=== PATIENT | male | born 1945 | race Caucasian/White ===

== ENCOUNTER 2017-09-30 10:24 | Day surgery (SDC) | payer OTHER ==
[2017-09-30] MEDS ORDERED: NA CHLORIDE 0.9% 1,000 ML ONE (11:29)
[2017-09-30] MEDS ORDERED: PROPOFOL 200 MG/20 ML VIAL IV ONE (13:37)
[2017-09-30] MEDS ORDERED: LIDOCAINE 1% MPF 5 ML VIAL ONE (14:06)
[2017-09-30 14:09] VITALS: TEMP 97.4
[2017-09-30 15:17] VITALS: BP 132/66; O2SAT 95
--- NOTE | 2017-09-30 15:52 | ENDO RPT ---
[address], [address] EGD PROCEDURE REPORT EXAM DATE: 09/30/2017 PATIENT NAME: Yunior Lewis MR#: [id number] BIRTHDATE: 1945 ATTENDING: Merlin Chapa Dr STATUS: outpatient BAR PORTER: Penny Reid and Sonja Villavicencio RN INDICATIONS: The patient is a 72 yr old Male here for an EGD due to mid epigastric abdominal pain, GERD, and chronic unexplained diarrhea PROCEDURE PERFORMED: EGD with biopsy MEDICATIONS: Per Anesthesia. TOPICAL ANESTHETIC: none CONSENT: The patient understands the risks and benefits of the procedure and understands that these risks include, but are not limited to: sedation, allergic reaction, infection, perforation and/or bleeding. Alternative means of evaluation and treatment include, among others: physical exam, x-rays, and/or surgical intervention. The patient elects to proceed with this endoscopic procedure. DESCRIPTION OF PROCEDURE: During intra-op preparation period all mechanical medical equipment was checked for proper function. Hand hygiene and appropriate measures for infection prevention was taken. Procedure, possible complications, and alternatives including but not limited to the possibility of bleeding, perforation, tear, infection, sepsis, need for surgery, need for blood transfusion, and anesthesia related complications were explained to the patient. After the risks, benefits and alternatives of the procedure were thoroughly explained, Informed consent was verified, confirmed and timeout was successfully executed by the treatment team. The patient was placed in the left lateral position. The patient was anesthetized with topical anesthesia. Through the anesthetized oropharyngeal area, the scope was passed without any difficulty. The Pentax [id number] ([id number]) endoscope was introduced through the mouth and advanced to the mid jejunum. Retroflexed views revealed no abnormalities. The gastroscope was then slowly withdrawn and removed. LA Class A esophagitis was found in the lower esophagus. Possible Carroll's esophagus (1cm) was found in the lower esophagus. With jumbo forceps, a biopsy was obtained and sent to pathology. Mild gastritis was found in the body of the stomach. With jumbo forceps, a biopsy was obtained and sent to pathology. Anastomosis was noted in the body of the stomach. Small bowel biopsies obtained with history of chronic unexplained diarrhea. ADVERSE EVENTS: There were no complications. IMPRESSIONS: 1. LA Class A esophagitis in the lower esophagus 2. Possible Carroll's esophagus (1 cm) in the lower esophagus, s/p biopsy 3. Mild gastritis in the body of the stomach, s/p biopsies 4. Anastomosis in the body of the stomach 5. Small bowel biopsies obtained with history of chronic unexplained diarrhea RECOMMENDATIONS: 1. await biopsy results 2. acid suppression therapy REPEAT EXAM: Merlin Chapa Dr eSigned: Merlin Chapa Dr 09/30/2017 1:54 PM cc: Jimmy Almendarez M.D. CPT CODES: ICD9 CODES: PATIENT NAME: Yunior Lewis MR#: [id number]
== END 2017-09-30 14:34 | disposition home or self-care (01) ==
LOC: OR 10:24
PROVIDERS: ATTEND Internal Medicine Gastroenterology
PROC: 0DB88ZX Excision of Small Intestine, Via Natural or Artificial Opening Endoscopic, Diagnostic (ICD-10-PCS; 2017-09-30)
PROC: 0DB68ZX Excision of Stomach, Via Natural or Artificial Opening Endoscopic, Diagnostic (ICD-10-PCS; 2017-09-30)
PROC: 0DB38ZX Excision of Lower Esophagus, Via Natural or Artificial Opening Endoscopic, Diagnostic (ICD-10-PCS; principal; 2017-09-30 14:15)
DX: K21.0 Gastro-esophageal reflux disease with esophagitis (principal); K29.70 Gastritis, unspecified, without bleeding; R19.7 Diarrhea, unspecified; Z88.6 Allergy status to analgesic agent; Z88.0 Allergy status to penicillin; Z88.2 Allergy status to sulfonamides; Z88.8 Allergy status to other drugs, medicaments and biological substances; I48.91 Unspecified atrial fibrillation; Z79.01 Long term (current) use of anticoagulants; I11.0 Hypertensive heart disease with heart failure; I50.9 Heart failure, unspecified; J44.9 Chronic obstructive pulmonary disease, unspecified
CPT/HCPCS: 43239; 82962; 88305; 88312; 88313; J7030

== ENCOUNTER 2019-02-04 09:25 | Inpatient (IN) | payer OTHER ==
--- OUTSIDE RECORDS SUMMARY | 2019-02-04 09:27 | XMS REPORT | Summary of Care ---
:1945 Author Organization [facility] Address [address] [place] [id number] Care Team Providers Name Role Phone GomezJimmy valdes Prakash Primary Care Provider Reason for Visit Reason Comments Refill Request Encounter Details Date Type Department Care Team Description 10/09/2018 Refill [facility] Ramiro Luna MD Refill Request Neurology-[address] [place] [id number] [address] [address] [place] [address] [phone] Allergies Active Allergy Reactions Severity Noted Date Comments Nsaids (Non-Steroidal Other - See comments 02/23/2016 Anti-Inflammatory Drug) Penicillins Other - See comments 02/23/2016 Hallucination Warfarin Hallucinations 02/23/2016 documented as of this encounter (statuses as of 10/09/2018) Medications Medication Sig Dispensed Refills Start End Status Date Date mycophenolate mofetil 500 Take 1,000 0 Active mg tablet mg by mouth. tacrolimus 1 mg capsule Take 3 mg by 0 Active mouth. omega-3 fatty Take 1 0 Active acids-vitamin E (FISH OIL) capsule by 1,000 mg capsule mouth. pantoprazole 40 mg EC Take 40 mg 0 Active tablet by mouth. sucralfate 1 gram tablet Take 1 g by 0 Active mouth. furosemide 40 mg tablet Take 40 mg 0 Active by mouth. spironolactone 50 mg Take 50 mg 0 Active tablet by mouth. apixaban 5 mg tablet Take 5 mg by 0 Active mouth. digoxin 125 mcg tablet Take 125 mcg 0 Active by mouth. labetalol 200 mg tablet Take 200 mg 0 Active by mouth. rosuvastatin 10 mg tablet Take 10 mg 0 Active by mouth. allopurinol 100 mg tablet Take 100 mg 0 Active by mouth. HYDROcodone-acetaminophen TAKE 1 0 02/09/20 Active 7.5-325 mg per tablet TABLET BY 16 MOUTH 3 TIMES A DAY albuterol 90 mcg/actuation Inhale 2 0 Active inhaler Puffs. predniSONE 5 mg tablet Take 5 mg by 0 Active mouth daily. potassium chloride Take 10 mEq 0 Active (KLOR-CON 10) 10 mEq CR by mouth tablet daily. fluticasone-vilanterol Inhale. 0 Active 100-25 mcg/dose DsDv Diclofenac Sodium 1 % gel Apply to 0 Active area(s). escitalopram oxalate 10 mg 0 10/03/19 Active tabletIndications: Type 2 18 diabetes mellitus with complication, with long-term current use of insulin latanoprost 0.005 % 0 10/02/19 Active ophthalmic 18 dropsIndications: Type 2 diabetes mellitus with complication, with long-term current use of insulin methscopolamine 5 mg 0 09/27/19 Active tabletIndications: Type 2 18 diabetes mellitus with complication, with long-term current use of insulin cyclosporine (RESTASIS Place in 0 Active OPHTHALMIC)Indications: each eye. Type 2 diabetes mellitus with complication, with long-term current use of insulin carboxymethylcellulose Place in 0 Active sodium (REFRESH each eye. OPHTHALMIC)Indications: Type 2 diabetes mellitus with complication, with long-term current use of insulin Insulin Asp Prt-Insulin Inject 30 60 mL 3 10/09/19 Active Aspart (NOVOLOG MIX 70-30) units before 18 100 unit/mL (70-30) breakfast injectionIndications: Type and 21 units 2 diabetes mellitus with before complication, with dinner long-term current use of insulin Insulin [place], Use as 200 Each 3 10/09/19 Active Disposable, (BD ULTRA-FINE directed. 18 MICRO PEN NEEDLE) 32 gauge Twice daily. x 02/28" NdleIndications: E 11.8 Type 2 diabetes mellitus with complication, with long-term current use of insulin Lancets (ONETOUCH Use as 300 Each 02/13/20 Active ULTRASOFT LANCETS) directed. E 18 MiscIndications: Type 2 11.8. Three diabetes mellitus with times daily complication, with long-term current use of insulin blood sugar diagnostic Use as 300 Strip 3 02/13/20 Active (ONETOUCH VERIO) directed. E 18 stripIndications: Type 2 11.8. Check diabetes mellitus with three times complication, with daily long-term current use of insulin pen needle,diabetic dual To use BID 200 Each 2 02/13/20 Active safty (BD AUTOSHIELD DUO with insulin 18 PEN NEEDLE) 30 gauge x DX: E11.8 3" Ndle primidone 50 mg 2 by mouth 540 tablet 2 07/15/19 Active tabletIndications: TID for 19 Essential tremor tremor. PRIMIDONE 50 mg tablet TAKE 1 90 tablet 0 10/10/19 Active TABLET BY 19 MOUTH EVERY 8 (EIGHT) HOURS. PRIMIDONE 50 mg tablet TAKE 1 90 tablet 0 07/28/ Discontinued TABLET BY 19 019 MOUTH EVERY 8 (EIGHT) HOURS. documented as of this encounter (statuses as of 10/09/2018) Active Problems Problem Noted Date Right knee pain 02/23/2016 documented as of this encounter (statuses as of 10/09/2018) Social History Tobacco Use Types Packs/Day Years Used Date Former Smoker Smokeless Tobacco: Never Used Alcohol Use Drinks/Week oz/Week Comments No 0 Standard drinks or equivalent 0.0 Sex Assigned at Date Recorded Not on file Job Start Date Occupation Industry Not on file Not on file Not on file Travel History Travel Start Travel End No recent travel history available. documented as of this encounter Last Filed Vital Signs Not on filedocumented in this encounter Plan of Treatment Date Type Specialty Care Team Description 01/30/2019 Office Visit Endocrinology Diabetes & Joshua Salamanca Metabolism [address] [place] [place], [place] [id number] Health Maintenance Due Date Last Done Comments CREATININE (SERUM) 1953 EYE EXAM 1953 LDL-C 1955 URINE MICROALBUMIN 1953 DTaP,Tdap,and Td Vaccines (1 - 1962 Tdap) COLONOSCOPY 1993 Zoster Recombinant Vaccine 1993 (SHINGRIX) (1 of 2) LUNG CANCER SCREEN: Recommended 1998 for age 55-80 with 30 + pack year history Medicare Wellness Visit 01/22/2008 PNEUMOCOCCAL VACCINES 65+ (1 of 2 01/22/2008 - PCV13) HgA1C 10/12/2018 04/14/2018, 10/08/2017, 04/09/2017 INFLUENZA VACCINE (#1) 2018 FOOT EXAM 04/14/2019 04/14/2018, 04/14/2018, 10/08/2017, Additional history exists documented as of this encounter Results Not on filedocumented in this encounter Insurance Payer Benefit Plan Subscriber ID Effective Phone Address Type / Group Dates AETNA - AETNA [id number] 2015-Javed [address] Medicare Adv [place]NAGED MEDICARE [place]V [place] [id number] [place] [address] documented as of this encounter
--- OUTSIDE RECORDS SUMMARY | 2019-02-04 09:28 | XMS REPORT | Summary of Care ---
:1945 Author Organization [facility] [place] [address] Care Team Providers Name Role Phone Unavailable Primary Care Provider Unavailable Reason for Visit Reason Comments Post-op Follow-up Encounter Details Date Type Department Care Team Description 12/29/2018 Office Visit [facility] Abel Blunt Post-op Follow-up Medicine Ophthalmology MD Juan Francisco 1978 [address] [place] 1978 [place] [address] [place] [address] Allergies Active Allergy Reactions Severity Noted Date Comments Penicillins 03/03/2018 Sulfa Antibiotics 03/03/2018 documented as of this encounter (statuses as of 12/29/2018) Medications Medication Sig Dispensed Refills Start Date End Date Status azelastine HCl 2 SPRAY(S) 2 TIMES 1 02/26/2018 Active (ASTEPRO) 0.15 % SOLN A DAY INTRANASALLY 90 DAYS BESIVANCE 0.6 % PUT 1 DROP INTO 0 02/08/2018 Active ophthalmic suspension RIGHT EYE 3 TIMES A DAY Diclofenac Sodium 1 % APPLY 1 APPLICATOR 0 01/02/2018 Active GEL FULL FOUR TIMES A DAY NEEDED escitalopram TAKE 1 TABLET BY 0 12/21/2017 Active (LEXAPRO) 10 MG MOUTH EVERY DAY tablet TRELEGY ELLIPTA 0 02/28/2018 Active 100-62.5-25 MCG/INH AEPB hydrocodone-acetamino TAKE 1 TABLET BY 0 01/02/2018 Active phen (NORCO) 7.5-325 MOUTH 4 TIMES A DAY MG per tablet hydrocortisone INSERT 1 SUPP 3 12/23/2017 Active (ANUSOL-HC) 25 MG RECTAL THREE TIMES suppository A DAY NEEDED NOVOLOG MIX 70/30 INJECT UNDER THE 3 01/02/2018 Active FLEXPEN (70-30) 100 SKIN 30 UNITS UNIT/ML SUPN BEFORE BREAKFAST AND 21 UNITS BEFORE DINNER BD AUTOSHIELD DUO 30G USE TWICE A DAY 2 02/13/2018 Active X 5 MM MISC latanoprost (XALATAN) 0 02/25/2018 Active 0.005 % ophthalmic solution mycophenolate TAKE 2 TABLETS BY 6 02/08/2018 Active (CELLCEPT) 500 MG MOUTH TWICE A DAY tablet tacrolimus (PROGRAF) TAKE 1 CAPSULE 4 01/16/2018 Active 0.5 MG capsule DAILY DX CODE Z94.0 KIDNEY TRANSPLANT ANORO ELLIPTA 62.5-25 2 PUFF(S) EVERY 24 3 01/28/2018 Active MCG/INH AEPB HOURS INHALED 30 DAYS Apixaban (ELIQUIS) 5 Take by mouth two 0 Active MG TABS times daily. albuterol 108 (90 2 Puffs by 0 Active base) mcg/act inhaler Inhalation route. diclofenac (VOLTAREN) 1 Drop. 0 Active 0.1 % ophthalmic solution duloxetine (CYMBALTA) TAKE 1 CAPSULE BY 1 11/20/2018 Active 30 MG capsule MOUTH EVERY DAY tacrolimus (PROGRAF) TAKE 3 CAPSULES BY 6 10/08/2018 Active 1 MG capsule MOUTH EVERY 12 HOURS predniSONE Take by mouth. 0 Active (DELTASONE) 5 MG tablet pantoprazole Take 40 mg by 0 Active (PROTONIX) 40 MG mouth. tablet sucralfate (CARAFATE) Take 1 g by mouth. 0 Active 1 g tablet cholestyramine MIX 2 PACKAGES IN 2 12/18/2018 Active (QUESTRAN) 4 g packet 16 OZ OF WATER AND DRINK AT BEDTIME furosemide (LASIX) 40 Take 40 mg by 0 Active MG tablet mouth. digoxin (LANOXIN) 125 Take 125 mcg by 0 Active MCG tablet mouth. labetalol (NORMODYNE) Take 200 mg by 0 Active 200 MG tablet mouth. allopurinol Take 100 mg by 0 Active (ZYLOPRIM) 100 MG mouth. tablet rosuvastatin Take 10 mg by 0 Active (CRESTOR) 10 MG mouth. tablet primidone (MYSOLINE) Take 50 mg by 0 07/14/2018 Active 50 MG tablet mouth. Fluticasone by Inhalation 0 Active Furoate-Vilanterol route. 100-25 MCG/INH AEPB Umeclidinium [place] by Inhalation 0 Active 62.5 MCG/INH AEPB route. 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 documented as of this encounter Last Filed Vital Signs Not on filedocumented in this encounter Patient Instructions Patient InstructionsAbel Blunt MD - 12/29/2018 2:20 PM CST STUDY/STUDIES: Slit lamp photos ASSESSMENT: 1. Neurotrophic keratitis 2. 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 Orders Placed This Encounter albuterol 108 (90 base) mcg/act inhaler Si Puffs by Inhalation route. diclofenac (VOLTAREN) 0.1 % ophthalmic solution Si Drop. duloxetine (CYMBALTA) 30 MG capsule Sig: TAKE 1 CAPSULE BY MOUTH EVERY DAY Refill: 1 tacrolimus (PROGRAF) 1 MG capsule Sig: TAKE 3 CAPSULES BY MOUTH EVERY 12 HOURS Refill: 6 predniSONE (DELTASONE) 5 MG tablet Sig: Take by mouth. pantoprazole (PROTONIX) 40 MG tablet Sig: Take 40 mg by mouth. sucralfate (CARAFATE) 1 g tablet Sig: Take 1 g by mouth. cholestyramine (QUESTRAN) 4 g packet Sig: MIX 2 PACKAGES IN 16 OZ OF WATER AND DRINK AT BEDTIME Refill: 2 furosemide (LASIX) 40 MG tablet Sig: Take 40 mg by mouth. digoxin (LANOXIN) 125 MCG tablet Sig: Take 125 mcg by mouth. labetalol (NORMODYNE) 200 MG tablet Sig: Take 200 mg by mouth. allopurinol (ZYLOPRIM) 100 MG tablet Sig: Take 100 mg by mouth. rosuvastatin (CRESTOR) 10 MG tablet Sig: Take 10 mg by mouth. primidone (MYSOLINE) 50 MG tablet Sig: Take 50 mg by mouth. Fluticasone Furoate-Vilanterol 100-25 MCG/INH AEPB Sig: by Inhalation route. Umeclidinium [place] 62.5 MCG/INH AEPB Sig: by Inhalation route. - Consider placing therapeutic scleral lens for 48hr with vigamox in reservoir Could consider large diameter SCL when removed Refresh Optive as needed - Return to clinic in 2 days ATTESTATIONS: I have personally interviewed and examined the patient and reviewed the PMH, SH , FHX, ROS, MEDS, ALLERGIES and TECH NOTE, and have updated the computerized patient record appropriately. The PMH, SOCIALHISTORY and FH were non- contributory to this visit. The risks, benefits, and alternatives of treatment were discussed with the patient (& family, ifpresent). All questions regarding diagnosis and treatment were answered to the patient's satisfaction. 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 Neurotrophic keratitis 2. 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 Orders Placed This Encounter albuterol 108 (90 base) mcg/act inhaler Si Puffs by Inhalation route. diclofenac (VOLTAREN) 0.1 % ophthalmic solution Si Drop. duloxetine (CYMBALTA) 30 MG capsule Sig: TAKE 1 CAPSULE BY MOUTH EVERY DAY Refill: 1 tacrolimus (PROGRAF) 1 MG capsule Sig: TAKE 3 CAPSULES BY MOUTH EVERY 12 HOURS Refill: 6 predniSONE (DELTASONE) 5 MG tablet Sig: Take by mouth. pantoprazole (PROTONIX) 40 MG tablet Sig: Take 40 mg by mouth. sucralfate (CARAFATE) 1 g tablet Sig: Take 1 g by mouth. cholestyramine (QUESTRAN) 4 g packet Sig: MIX 2 PACKAGES IN 16 OZ OF WATER AND DRINK AT BEDTIME Refill: 2 furosemide (LASIX) 40 MG tablet Sig: Take 40 mg by mouth. digoxin (LANOXIN) 125 MCG tablet Sig: Take 125 mcg by mouth. labetalol (NORMODYNE) 200 MG tablet Sig: Take 200 mg by mouth. allopurinol (ZYLOPRIM) 100 MG tablet Sig: Take 100 mg by mouth. rosuvastatin (CRESTOR) 10 MG tablet Sig: Take 10 mg by mouth. primidone (MYSOLINE) 50 MG tablet Sig: Take 50 mg by mouth. Fluticasone Furoate-Vilanterol 100-25 MCG/INH AEPB Sig: by Inhalation route. Umeclidinium [place] 62.5 MCG/INH AEPB Sig: by Inhalation route. - Consider placing therapeutic scleral lens for 48hr with vigamox in reservoir Could consider large diameter SCL when removed Refresh Optive as needed - Return to clinic in 2 days ATTESTATIONS: I have personally interviewed and examined the patient and reviewed the PMH, SH , FHX, ROS, MEDS, ALLERGIES and TECH NOTE, and have updated the computerized patient record appropriately. The PMH, SOCIALHISTORY and FH were non- contributory to this visit. The risks, benefits, and alternatives of treatment were discussed with the patient (& family, ifpresent). All questions regarding diagnosis and treatment were answered to the patient's satisfaction. documented in this encounter Plan of Treatment Name Type Priority Associated Diagnoses Order Schedule CO FIT CONTACT LENS CO Charge Routine Neurotrophic keratitis Ordered: 12/29/2018 [place] OCULAR SURFACE Corneal epithelial defect DISEASE Health Maintenance Due Date Last Done Comments COLON CANCER SCREENING: COLONOSCOPY 1945 MEDICARE AWV 1945 TETANUS SHOT (ADULT) 1958 FALL SCREEN 01/22/2008 PNEUMOVAX >=65 (PPSV23) 01/22/2008 FLU VACCINE > 6 MONTHS 09/25/2018 PREVNAR >=65 (PCV13) Completed 01/07/2016 documented as of this encounter Procedures Procedure Name Priority Date/Time Associated Diagnosis Comments SLIT LAMP Routine 12/29/2018 4:11 Neurotrophic Results for this PHOTOGRAPHY - OD - PM HOMICIDE DETECTIVE keratitis procedure are in RIGHT EYE the results section. documented in this encounter Results SLIT LAMP PHOTOGRAPHY - OD - RIGHT EYE (12/29/2018 4:11 PM HOMICIDE DETECTIVE) Specimen Narrative Performed At [facility] has no prior data. 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
--- OUTSIDE RECORDS SUMMARY | 2019-02-04 09:28 | XMS REPORT | Summary of Care ---
:1945 Author Organization [facility] [place] [address] Care Team Providers Name Role Phone Unavailable Primary Care Provider Unavailable Reason for Visit Reason Comments Follow Up Encounter Details Date Type Department Care Team Description 12/31/2018 Office Visit [facility] Abel Blunt Follow Up Ophthalmology MD Juan Francisco 1978 [address] [place] [place] [address] [place] [address] Allergies Active Allergy Reactions Severity Noted Date Comments Penicillins 03/03/2018 Sulfa Antibiotics 03/03/2018 documented as of this encounter (statuses as of 12/31/2018) Medications Medication Sig Dispensed Refills Start Date [...] Active Furoate-Vilanterol route. 100-25 MCG/INH AEPB Umeclidinium [place] by Inhalation 0 Active 62.5 MCG/INH AEPB route. trimethoprim-polymyxi Place 1 Drop into 10 mL 0 12/31/2018 Active n b (POLYTRIM) the right eye two ophthalmic solution times daily. 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 Neurotrophic keratitis - Epithelial defect completely healed! Placed 16mm 8.0BC Flexlens PLAN: No outpatient medications have been marked as taking for the 12/31/18 encounter ( Office Visit) with Abel Blunt MD. No orders of the defined types were placed in this encounter. restasis bid ou zioptan qhs ou refesh optive 4x per day Soothe oint qhs ou to lids Polytrim BID - Return to clinic in 1 week ATTESTATIONS: I have personally interviewed and examined [...] treatment were answered to the patient's satisfaction. 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 Placed 16mm 8.0BC Flexlens PLAN: No outpatient medications have been marked as taking for the 12/31/18 encounter ( Office Visit) with Abel Blunt MD. No orders of the defined types were placed in this encounter. 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 Ordered: 12/31/2018 OCULAR SURFACE DISEASE Neurotrophic keratitis Health Maintenance Due Date Last Done Comments COLON CANCER SCREENING: COLONOSCOPY 1945 MEDICARE AWV 1945 TETANUS SHOT (ADULT) 1958 FALL SCREEN 01/22/2008 PNEUMOVAX >=65 (PPSV23) 01/22/2008 FLU VACCINE > 6 MONTHS 09/25/2018 PREVNAR >=65 (PCV13) Completed 01/07/2016 documented as of this encounter Results Not on filedocumented in this encounter Visit Diagnoses Diagnosis 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
[2019-02-04] MEDS ORDERED: ALBUTEROL 2.5 MG/3 ML NEB SOL ONE (09:59)
[2019-02-04] MEDS ORDERED: METHYLPREDNISOLONE 125 MG INJ ONE (09:59)
[2019-02-04 10:20] LABS: Absolute Lymphocytes (CBC) 0.4 K/uL (0.7-4.9); Basophils % 0.9 % (0-1.3); Hematocrit 34.5 % (39.6-49.0); Lymphocytes % 7.7 % (15.3-44.8); MPV 9.2 fL (7.6-11.3)
[2019-02-04 10:32] LABS: Protime INR 1.12
[2019-02-04 10:44] LABS: ALT/SGPT 15 U/L (12-78); AST/SGOT 21 U/L (15-37); Albumin 3.6 g/dL (3.4-5.0); Alkaline Phosphatase 78 U/L (45-117); BUN Blood Urea Nitrogen 12 mg/dL (7-18); Bicarbonate 35 mmol/L (21-32); Bilirubin Direct 0.2 mg/dL (0-0.2); Bilirubin Total 0.8 mg/dL (0.2-1.0); Glucose Level 119 mg/dL (74-106); Magnesium 1.8 mg/dL (1.8-2.4); NT PRO-BNP 3248 pg/mL (<450); Potassium 4.3 mmol/L (3.5-5.1); Protein, Total 6.6 g/dL (6.4-8.2); Sodium Level 141 mmol/L (136-145); Troponin (Emerg Dept Use Only) < 0.02 ng/mL (0.0-0.045)
--- NOTE | 2019-02-04 10:50 | RAD REPORT ---
EXAM DESCRIPTION: RAD - Chest Single View - 02/04/2019 10:34 am CLINICAL HISTORY: SOB Chest pain. COMPARISON: Chest Pa And Lat (2 Views) dated 03/31/2018; Chest Pa And Lat (2 Views) dated 11/06/2016; C hest Single View dated 01/04/2016; CHEST SINGLE VIEW dated 04/02/2014 FINDINGS: Portable technique limits examination quality. Moderate bilateral pulmonary opacities are seen, likely representing pneumonia or pulmonary edema. Sm all pleural effusion suspected on right. The heart is moderately enlarged in size. No displaced fract ures.Aortic atherosclerosis.
[2019-02-04] MEDS ORDERED: FUROSEMIDE 40 MG/4 ML VIAL ONE (11:05)
[2019-02-04] MEDS ORDERED: Levofloxacin 750mg IV 750 MG/150 ML BAG IV ONE (11:05)
[2019-02-04] MEDS ORDERED: FUROSEMIDE 20 MG/ 2ML VIAL ONE (11:05)
--- NOTE | 2019-02-04 11:31 | RAD REPORT ---
EXAM DESCRIPTION: CTAbdomen Pelvis W Contrast - 02/04/2019 11:18 am CLINICAL HISTORY: Abdominal pain. Abd pain;GI bleed COMPARISON: Chest Single View dated 02/04/2019 TECHNIQUE: Biphasic CT imaging of the abdomen and pelvis was performed with 100 ml non-ionic IV cont rast. All CT scans are performed using dose optimization technique as appropriate and may include automated exposure control or mA/KV adjustment according to patient size. FINDINGS: Small left and small to moderate right pleural effusion noted with ill-defined interstitia l opacities in both lung bases. Mild periportal edema seen in the liver. Discrete liver mass is not identified. Cholecystectomy clips . The spleen, pancreas, adrenal glands are normal. Atrophic changes involve both kidneys. Prominent e xophytic cyst is present mid-pole left kidney. No bowel obstruction, free air, free fluid or abscess. Aortic atherosclerosis. Right lower quadrant t ransplant kidney seen. The appendix appears surgically absent. Small fat containing ventral hernias. No evidence of significant lymphadenopathy. Right total hip arthroplasty is noted. Significant lower lumbar degenerative changes. IMPRESSION: Bilateral pleural effusions, larger on the right with poorly defined basilar lung opacit ies which may represent infiltrate/pneumonia. Right lower quadrant transplant kidney.
--- NOTE | 2019-02-04 11:58 | ER ---
Nurse's Notes [facility] Name: Yunior Lewis Age: 74 yrs Sex: Male : 1945 Arrival Date: 02/04/2019 Time: 09:28 Bed 19 Private MD: Jimmy Almendarez T Diagnosis: Acute combined systolic (congestive) and diastolic (congestive) heart failure;Pneumonia due to other specified bacteria;Anemia;Gastrointestinal hemorrhage, unspecified Presentation: 02/04 09:32 Presenting complaint: Child states: has had rectal bleeding since yesterday , sees Dr. chema Betancourt for GI issues, has diarrhea , also has difficulty breathing that started a week ago, on home O2. Transition of care: patient was not received from another setting of care. Onset of symptoms was January 29, 2019. Risk Assessment: Do you want to hurt yourself or someone else? Patient reports no desire to harm self or others. Initial Sepsis Screen: Does the patient meet any 2 criteria? No. Patient's initial sepsis screen is negative. Does the patient have a suspected source of infection? No. Patient's initial sepsis screen is negative. Care prior to arrival: None. 09:32 Method Of Arrival: Wheelchair iw 09:32 Acuity: JAQUAN 2 iw Triage Assessment: 13:45 Respiratory: ca1 13:45 Respiratory: Onset: The symptoms/episode began/occurred. ca1 Historical: - Allergies: 09:35 NSAIDS; iw 09:35 PENICILLINS; iw 09:35 Warfarin; iw - Immunization history:: Adult Immunizations up to date. - Social history:: Smoking status: Patient/guardian denies using tobacco. - Ebola Screening: : Patient negative for fever greater than or equal to 101.5 degrees Fahrenheit, and additional compatible Ebola Virus Disease symptoms Patient denies exposure to infectious person Patient denies travel to an Ebola-affected area in the 21 days before illness onset No symptoms or risks identified at this time. Screenin:00 Abuse screen: Denies threats or abuse. Denies injuries from another. Nutritional ca1 screening: No deficits noted. Tuberculosis screening: No symptoms or risk factors identified. Fall Risk IV access (20 points). Ambulatory Aid- Crutches/Cane/Walker (15 pts). Gait- Weak (10 pts.). Total Marroquin Fall Scale indicates High Risk Score (45 or more points). Fall prevention measures have been instituted. Side Rails Up X 2 Family Present and informed to notify staff if the need to leave the bedside As available patient and family educated on Fall Prevention Program and Strategies. Assessment: 09:49 General: Appears in no apparent distress. Behavior is calm, cooperative. Pain: Denies hb pain. Neuro: Level of Consciousness is awake, alert, obeys commands, Oriented to person, place, time, situation. Cardiovascular: Capillary refill < 3 seconds Rhythm is regular. Respiratory: Airway is patent Trachea midline Respiratory effort is even, mildly labored Respiratory pattern is regular, Breath sounds are diminished bilaterally. Breath sounds with rales bilaterally. GI: Reports rectal bleeding. : No signs and/or symptoms were reported regarding the genitourinary system. EENT: No signs and/or symptoms were reported regarding the EENT system. Derm: Skin is dry, Skin is pale, Skin temperature is warm. Musculoskeletal: No signs and/or symptoms reported regarding the musculoskeletal system. 10:30 Reassessment: Patient appears in no apparent distress at this time. Patient is alert, ca1 oriented x 3, equal unlabored respirations, skin warm/dry/pink. 11:30 Reassessment: Patient appears in no apparent distress at this time. Patient is alert, ca1 oriented x 3, equal unlabored respirations, skin warm/dry/pink. Family at bedside. 12:30 Reassessment: verbal order received to apply a condom cath for patient incontinence, pt sg tolerated well, a collection bag applied, urine ouput noted in collection bag at this time. 13:44 Reassessment: Patient appears in no apparent distress at this time. Patient is alert, ca1 oriented x 3, equal unlabored respirations, skin warm/dry/pink. Dr. Montalvo at bedside. 14:49 Reassessment: Patient appears in no apparent distress at this time. Patient is alert, ca1 oriented x 3, equal unlabored respirations, skin warm/dry/pink. Pending Room Assignment. 15:28 Reassessment: Patient appears in no apparent distress at this time. No changes from ca1 previously documented assessment. 16:03 Reassessment: Patient appears in no apparent distress at this time. ca1 Vital Signs: 09:35 BP 148 / 82; Pulse 86; Resp 20 S; Temp 97.7(TE); Pulse Ox 81% on 3 lpm NC; Weight iw 112.04 kg; Height 5 ft. 11 in. (180.34 cm); Pain 0/10; 11:00 BP 131 / 78; Pulse 80; Resp 15 S; Pulse Ox 98% on 2 lpm NC; ca1 11:31 BP 132 / 72; Pulse 81; Resp 21 S; Pulse Ox 99% on 2 lpm NC; ca1 11:51 BP 142 / 88; Pulse 91; Resp 22 S; Pulse Ox 95% on 2 lpm NC; ca1 12:56 BP 152 / 88; Pulse 83; Resp 25 S; Pulse Ox 97% on 2 lpm NC; ca1 13:48 BP 149 / 86; Pulse 86; Resp 25 S; Pulse Ox 100% on 2 lpm NC; ca1 14:49 BP 153 / 103; Pulse 86; Resp 24 S; Pulse Ox 100% on 2 lpm NC; ca1 15:28 BP 154 / 88; Pulse 93; Resp 26 S; Pulse Ox 100% on 2 lpm NC; ca1 09:35 Body Mass Index 34.45 (112.04 kg, 180.34 cm) iw ED Course: 09:28 Patient arrived in ED. mr 09:28 Jimmy Almendarez MD is Private Physician. mr 09:34 Triage completed. iw 09:35 Arm band placed on. iw 09:38 Joshua Chatman MD is Attending Physician. kdr 09:49 Deonte Ventura PA is [facility]. jr8 10:00 Patient has correct armband on for positive identification. Placed in gown. Bed in low ca1 position. Call light in reach. Side rails up X2. culturist on. Pulse ox on. NIBP on. Warm blanket given. 10:00 Initial lab(s) drawn, by me, sent to lab. Missed attempt(s): 18 gauge in right dh3 antecubital area. Bleeding controlled, band aid applied, catheter tip intact. 10:00 T\T\S collected, blood band applied to patient. dh3 10:00 No provider procedures requiring assistance completed. ca1 10:02 Missed attempt(s): 20 gauge in right antecubital area. Bleeding controlled, band aid hb applied, catheter tip intact. 10:09 Inserted saline lock: 24 gauge in right wrist, using aseptic technique. hb 10:32 Tasia Washington, RN is Primary Nurse. ca1 10:48 XRAY Chest (1 view) In Process Unspecified. EDMS 10:48 EKG done, by residential air sealing technician. reviewed by Deonte COOMBS. at1 11:20 CT Abd/Pelvis - IV Contrast Only In Process Unspecified. EDMS 11:50 Assisted with urinal. ca1 11:56 Bruna Riggs MD is Hospitalizing Provider. jr8 12:30 Assisted with urinal. Cleaned of incontinence. Linen changed. sg 12:30 Condom Cath applied per Troy COOMBS order. sg 15:53 Patient admitted, IV remains in place. ca1 Administered Medications: 09:58 Drug: Albuterol 2.5 mg Route: Inhalation; hb 10:11 Drug: SOLU-Medrol 125 mg Route: IVP; Site: right wrist; hb 12:16 Follow up: Response: No adverse reaction; Marked relief of symptoms ca1 11:35 Drug: Lasix 60 mg Route: IVP; Site: right forearm; ca1 12:16 Follow up: Urine output 940 ml; Response: No adverse reaction ca1 12:16 Drug: LevaQUIN 750 mg Volume: 150 ml; Route: IVPB; Infused Over: 90 mins; Site: right ca1 forearm; 13:51 Follow up: Response: No adverse reaction; IV Status: Completed infusion ca1 Output: 11:50 Urine: 650ml (Voided); Total: 650ml. ca1 12:16 Urine: 940ml; Total: 1590ml. ca1 14:00 Urine: 900ml (Voided); Total: 2490ml. ca1 Outcome: 11:57 Decision to Hospitalize by Provider. jr8 16:04 Admitted to Tele accompanied by tech, family with patient, via stretcher, room 429, ca1 with chart, Report called to BRENDA Perez 16:04 Condition: stable 16:04 Instructed on the need for admit. 16:12 Patient left the ED. sg Signatures: Dispatcher [employer] EDMS Octaviano Tinoco, RN Joshua Rincon MD MD kdr Rivera, Mary mr Williams, Irene, RN Deonte Issa PA PA jr8 Rica Laguerre, stopboard assembler EKG Tat1 Libby Terrazas RN RN Johanny Dasilva 3 Tasia Washington RN RN ca1 Corrections: (The following items were deleted from the chart) 09:36 09:35 Pulse 86bpm; Resp 20bpm; Spontaneous; Pulse Ox 81% 3 lpm Nasal Cannula; Temp iw 97.7F Temporal; 112.04 kg; Height 5 ft. 11 in.; BMI: 34.4; Pain 0/10; iw 13:34 11:00 BP 131 / 78; Pulse 80bpm; Resp 15bpm; Spontaneous; Pulse Ox 98% RA; ca1 ca1 13:34 11:31 BP 132 / 72; Pulse 81bpm; Resp 21bpm; Spontaneous; Pulse Ox 99%; ca1 ca1 13:35 09:49 Respiratory: Airway is patent Trachea midline Respiratory effort is even, mildly hb labored Respiratory pattern is regular, Breath sounds are diminished bilaterally. hb 13:37 11:51 BP 142 / 88; Pulse 91bpm; Resp 22bpm; Pulse Ox 95% 2 lpm Nasal Cannula; ca1 ca1 13:48 13:48 BP 149 / 86; Pulse 86bpm; Resp 25bpm; Spontaneous; Pulse Ox 100% RA; ca1 ca1
--- NOTE | 2019-02-04 11:58 | EDPHYS ---
Physician Documentation [facility] Name: Yuniro Lewis Age: 74 yrs Sex: Male : 1945 Arrival Date: 02/04/2019 Time: 09:28 Bed 19 Private MD: Jimmy Almendarez T ED Physician Joshua Chatman HPI: 02/04 11:08 This 74 yrs old Male presents to ER via Wheelchair with complaints of jr8 Breathing Difficulty, Rectal Bleeding. 11:08 The patient has shortness of breath at rest. Onset: The symptoms/episode began/occurred jr8 gradually, 2 week(s) ago. Duration: The symptoms are continuous, and are steadily getting worse. The patient's shortness of breath is aggravated by light activity, talking, walking. Associated signs and symptoms: Pertinent positives: dizziness, fatigue. Severity of symptoms: At their worst the symptoms were moderate in the emergency department the symptoms are unchanged. The patient has not experienced similar symptoms in the past. The patient has not recently seen a physician. History of COPD and CHF. Usually uses oxygen at night and PRN. For the past two weeks has been using it continuously. Now saw blood in stool this AM. On Eliquis . Historical: - Allergies: 09:35 NSAIDS; iw 09:35 PENICILLINS; iw 09:35 Warfarin; iw - Immunization history:: Adult Immunizations up to date. - Social history:: Smoking status: Patient/guardian denies using tobacco. - Ebola Screening: : Patient negative for fever greater than or equal to 101.5 degrees Fahrenheit, and additional compatible Ebola Virus Disease symptoms Patient denies exposure to infectious person Patient denies travel to an Ebola-affected area in the 21 days before illness onset No symptoms or risks identified at this time. ROS: 11:08 Eyes: Negative for injury, pain, redness, and discharge, ENT: Negative for injury, jr8 pain, and discharge, Neck: Negative for injury, pain, and swelling, Cardiovascular: Negative for chest pain, palpitations, and edema, Back: Negative for injury and pain, MS/Extremity: Negative for injury and deformity, Skin: Negative for injury, rash, and discoloration, Neuro: Negative for headache, weakness, numbness, tingling, and seizure. 11:08 Respiratory: Positive for dyspnea on exertion, orthopnea, shortness of breath. 11:08 Abdomen/GI: Positive for rectal bleeding, Negative for abdominal pain, nausea, vomiting, and diarrhea, abdominal cramps, abdominal distension. Exam: 11:08 Eyes: Pupils equal round and reactive to light, extra-ocular motions intact. Lids and jr8 lashes normal. Conjunctiva and sclera are non-icteric and not injected. Cornea within normal limits. Periorbital areas with no swelling, redness, or edema. ENT: Nares patent. No nasal discharge, no septal abnormalities noted. Tympanic membranes are normal and external auditory canals are clear. Oropharynx with no redness, swelling, or masses, exudates, or evidence of obstruction, uvula midline. Mucous membranes moist. Neck: Trachea midline, no thyromegaly or masses palpated, and no cervical lymphadenopathy. Supple, full range of motion without nuchal rigidity, or vertebral point tenderness. No Meningismus. Cardiovascular: Regular rate and rhythm with a normal S1 and S2. No gallops, murmurs, or rubs. Normal PMI, no JVD. No pulse deficits. Back: No spinal tenderness. No costovertebral tenderness. Full range of motion. Skin: Warm, dry with normal turgor. Pale in appearance with no rashes, no lesions, and no evidence of cellulitis. MS/ Extremity: Pulses equal, no cyanosis. Neurovascular intact. Full, normal range of motion. Neuro: Awake and alert, GCS 15, oriented to person, place, time, and situation. Cranial nerves II-XII grossly intact. Motor strength 5/5 in all extremities. Sensory grossly intact. Cerebellar exam normal. Normal gait. 11:08 Respiratory: mild respiratory distress is noted, Respirations: labored breathing, tachypnea, Breath sounds: rales, that are mild, are located in both bases, decreased breath sounds, that are mild, are scattered. 11:08 Abdomen/GI: Inspection: obese Bowel sounds: active, all quadrants, Palpation: soft, in all quadrants, mild abdominal tenderness, in the left lower quadrant, mass, is not appreciated, rebound tenderness, is not appreciated, voluntary guarding, is not appreciated, involuntary guarding, is not appreciated, no appreciated organomegaly, Indicators: McBurney's point is not tender, Dickinson's sign is negative, Rovsing's sign is negative, Liver: tenderness, is not appreciated. Vital Signs: 09:35 BP 148 / 82; Pulse 86; Resp 20 S; Temp 97.7(TE); Pulse Ox 81% on 3 lpm NC; Weight iw 112.04 kg; Height 5 ft. 11 in. (180.34 cm); Pain 0/10; 11:00 BP 131 / 78; Pulse 80; Resp 15 S; Pulse Ox 98% on 2 lpm NC; ca1 11:31 BP 132 / 72; Pulse 81; Resp 21 S; Pulse Ox 99% on 2 lpm NC; ca1 11:51 BP 142 / 88; Pulse 91; Resp 22 S; Pulse Ox 95% on 2 lpm NC; ca1 12:56 BP 152 / 88; Pulse 83; Resp 25 S; Pulse Ox 97% on 2 lpm NC; ca1 13:48 BP 149 / 86; Pulse 86; Resp 25 S; Pulse Ox 100% on 2 lpm NC; ca1 14:49 BP 153 / 103; Pulse 86; Resp 24 S; Pulse Ox 100% on 2 lpm NC; ca1 15:28 BP 154 / 88; Pulse 93; Resp 26 S; Pulse Ox 100% on 2 lpm NC; ca1 09:35 Body Mass Index 34.45 (112.04 kg, 180.34 cm) iw MDM: 09:50 Patient medically screened[address] [facility] 11:39 Data reviewed: vital signs, nurses notes, lab test result(s), EKG, radiologic studies, jr8 CT scan, plain films. Data interpreted: Pulse oximetry: on room air is 81 %. Interpretation: hypoxia. Counseling: I had a detailed discussion with the patient and/or guardian regarding: the historical points, exam findings, and any diagnostic results supporting the discharge/admit diagnosis, lab results, radiology results, the need for further work-up and treatment in the hospital. 02/04 09:39 Order name: Basic Metabolic Panel; Complete Time: 10:49 kdr 02/04 09:39 Order name: CBC with Diff kdr 02/04 10:52 Interpretation: Abnormal: HGB 10.0. jr8 02/04 09:39 Order name: LFT's; Complete Time: 10:49 kdr 02/04 09:39 Order name: Magnesium; Complete Time: 10:49 kdr 02/04 09:39 Order name: NT PRO-BNP; Complete Time: 10:49 kdr 02/04 09:39 Order name: PT-INR; Complete Time: 10:49 kdr 02/04 09:39 Order name: Troponin (emerg Dept Use Only); Complete Time: 10:49 kdr 02/04 09:39 Order name: XRAY Chest (1 view); Complete Time: 11:07 kdr 02/04 09:39 Order name: Type And Screen; Complete Time: 11:37 kdr 02/04 10:50 Order name: Blood Culture Adult (2) [facility] 02/04 10:54 Order name: CT Abd/Pelvis - IV Contrast Only; Complete Time: 11:[address] [facility] 02/04 12:53 Order name: Echo with Doppler [facility] 02/04 12:53 Order name: Chest Pa And Lat (2 Views) [facility] 02/04 12:53 Order name: Chest Pa And Lat (2 Views) [facility] 02/04 09:39 Order name: EKG; Complete Time: 09:41 [facility] 02/04 09:39 Order name: Cardiac monitoring; Complete Time: 11:30 [facility] 02/04 09:39 Order name: EKG - Nurse/Tech; Complete Time: 11:31 kdr 02/04 09:39 Order name: IV Saline Lock; Complete Time: 10:13 kdr 02/04 09:39 Order name: Labs collected and sent; Complete Time: 10:13 kdr 02/04 09:39 Order name: O2 Per Protocol; Complete Time: 10:13 kdr 02/04 09:39 Order name: O2 Sat Monitoring; Complete Time: 10:13 kdr 02/04 12:53 Order name: CONS Physician Consult [facility] 02/04 12:53 Order name: Heart Healthy [facility] Administered Medications: 09:58 Drug: Albuterol 2.5 mg Route: Inhalation; hb 10:11 Drug: SOLU-Medrol 125 mg Route: IVP; Site: right wrist; hb 12:16 Follow up: Response: No adverse reaction; Marked relief of symptoms ca1 11:35 Drug: Lasix 60 mg Route: IVP; Site: right forearm; ca1 12:16 Follow up: Urine output 940 ml; Response: No adverse reaction ca1 12:16 Drug: LevaQUIN 750 mg Volume: 150 ml; Route: IVPB; Infused Over: 90 mins; Site: right ca1 forearm; 13:51 Follow up: Response: No adverse reaction; IV Status: Completed infusion ca1 Disposition: 02/05 07:16 Co-signature as Attending Physician, Joshua Chatman MD I agree with the assessment and kdr plan of care. Disposition: 02/04/19 11:57 Hospitalization ordered by Bruna Riggs for Inpatient Admission. Preliminary diagnosis are Acute combined systolic (congestive) and diastolic (congestive) heart failure, Pneumonia due to other specified bacteria, Anemia, Gastrointestinal hemorrhage, unspecified. - Bed requested for Telemetry/MedSurg (Inpatient). - Status is Inpatient Admission. sg - Condition is Stable. - Problem is new. - Symptoms have improved. UTI on Admission? No Signatures: Dispatcher [employer] EDMS Abena Baird Steven, RN RN sg Joshua Chatman MD MD [facility] Dede Lockhart RN RN Deonte Ventura PA PA jr8 Libby Terrazas RN RN Tasia Washington RN RN ca1 Corrections: (The following items were deleted from the chart) 02/04 10:51 10:52 HGB 10.0. jr8 jr8 15:29 11:57 Hospitalization Ordered by Bruna Riggs MD for Inpatient Admission. Preliminary bd diagnosis is Acute combined systolic (congestive) and diastolic (congestive) heart failure; Pneumonia due to other specified bacteria; Anemia; Gastrointestinal hemorrhage, unspecified. Bed requested for Telemetry/MedSurg (Inpatient). Status is Inpatient Admission. Condition is Stable. Problem is new. Symptoms have improved. UTI on Admission? No. jr8 16:12 15:29 02/04/2019 11:57 Hospitalization Ordered by Bruna Riggs MD for Inpatient sg Admission. 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 Bed requested for Telemetry/MedSurg (Inpatient). Status is Inpatient Admission. Condition is Stable. Problem is new. Symptoms have improved. UTI on Admission? No. bd
--- NOTE | 2019-02-04 13:24 | EKG ---
Test Date: 2019-02-04 Test Time: 10:43:52 Tank Car Inspector: ARISTEO MEASUREMENT RESULTS: Intervals: Rate: 76 SD: QRSD: 154 QT: 424 QTc: [address] [place]: P: SD: QRS: 12 T: 17 INTERPRETIVE STATEMENTS: Atrial fibrillation with controlled ventricular response Right bundle branch block Abnormal ECG Compared to ECG 11/06/2016 13:37:59 no significant change from previous ECG Electronically Signed On 02-04-19 13:24:22 [place] by Stefan Montalvo
[2019-02-04] MEDS ORDERED: ACETAMINOPHEN 500 MG TAB PO PRN (16:40)
[2019-02-04 16:41] VITALS: BMI 33.5
[2019-02-04 16:44] LABS: Anisocytosis 1+; Blood Morphology Comment NOTED (NOT SEEN); Platelet Estimate DECR; Poikilocytosis 2+; Urine White Blood Cell Casts OK
[2019-02-04] MEDS ORDERED: D50W 25 GM/50 ML SYRINGE/VIAL IV PRN (16:44)
[2019-02-04] MEDS ORDERED: GLUCAGON 1 MG/VIAL IM PRN (16:44)
--- NOTE | 2019-02-04 16:48 | P.HP ---
Certification for Inpatient Patient admitted to: Inpatient With expected LOS: >2 Midnights Patient will require the following post-hospital care: None Practitioner: I am a practitioner with admitting privileges, knowledge of patient current condition, hospital course, and medical plan of care. Services: Services provided to patient in accordance with Admission requirements found in Title 42 Section 412.3 of the Code of Federal Regulations Patient History Date of Service: 02/04/19 Primary Care Provider: Dr Almendarez Reason for admission: rectal Bleeding and SOB History of Present Illness: This is a 74-year-old male with significant past medical history of diabetes, hypertension, atrial fibrillation status was renal transplant, who lives at the assisted living who presented to the ED complaining of GI symptoms for over 2 weeks. Patient stated that he has been having diarrhea along with rectal bleeding due to hemorrhoids for about 2-3 months which has gotten progressively worse. He recently saw GI doctor who prescribed medication which helps with the diarrhea however his rectal bleeding still continues to be on an off. For past couple of days. Patient stated that he also started having some respiratory symptoms like shortness of breath and thus he decided to come to the ER. Patient has been having intermittent chills at the house as well. Denies having any sick contacts however does live at the assisted living facility. Patient states that he has COPD at baseline recently saw his take up operator who told him that he does has significantly end-stage COPD which requires him to wear BiPAP overnight. No other complaints to offer at this time In the ER patient was seen and evaluated. Lab work and imaging was done. Patient was found to have acute respiratory distress and thus was admitted to the hospital for further care. Allergies Penicillins Allergy (Verified 04/02/14 21:19) Itching/Hives/Rash aspirin Adverse Reaction (Verified 09/30/17 12:16) Rash warfarin Adverse Reaction (Verified 09/30/17 12:16) Rash Home Medications: Albuterol Sulfate [Proair Hfa] 8.5 gm IH QID PRN 09/30/17 Apixaban [Eliquis] 5 mg PO BID 09/30/17 Carboxymethylcellulose Sodium [Refresh Liquigel] 1 drop EACH EAR BEDTIME Cyclosporine [Restasis] 1 drop EACH EYE BID 09/30/17 Diclofenac Sodium [Voltaren] 1 gm TP QID PRN 09/30/17 Digoxin [Lanoxin*] 1 tab PO ONCE 09/30/17 Escitalopram [Lexapro] 10 mg PO DAILY 09/30/17 Fluticasone/Vilanterol [Breo Ellipta 100-25 Mcg INH] 1 each IH ONCE 09/30/17 Furosemide [Lasix] 40 mg PO BID 09/30/17 Hydrocodone Bit/Acetaminophen [[place] 7.5-325 Tablet] 1 each PO TID PRN 09/30/17 Insulin Aspart Protam & Aspart [Novolog Mix 70-30 Flexpen Syrn] 21 unit SQ DAILY AT SUPPER 09/30/17 Insulin Aspart Protam & Aspart [Novolog Mix 70-30 Flexpen Syrn] 30 unit SQ BREAKFAST 09/30/17 Labetalol HCl [Trandate] 200 mg PO BID 09/30/17 Latanoprost/Pf [Latanoprost 0.005% Eye Drop] 7.5 ml OP BEDTIME 09/30/17 Mycophenolate Mofetil [Cellcept] 1,000 mg PO BID 09/30/17 Pantoprazole Sodium [Protonix] 40 mg PO BID 09/30/17 Potassium Chloride [Klor-Con 10] 10 meq PO TID 09/30/17 Prednisone [Daniel] 5 mg PO ONCE 09/30/17 Primidone [Mysoline] 50 mg PO TID 09/30/17 Rosuvastatin [Crestor] 10 mg PO BEDTIME 09/30/17 Spironolactone [Aldactone] 50 mg PO DAILY 09/30/17 Sucralfate [Carafate] 1 gm PO QID 09/30/17 Tacrolimus [Prograf] 3 mg PO Q12HR 09/30/17 allopurinoL [Allopurinol] 100 mg PO BID 09/30/17 - Past Medical/Surgical History Diabetic: No -: COPD -: ARTHRITIS -: AFIB -: GI ULCERS -: GI BLEED -: R KNEE REPLACEMENT -: KIDNEY TRANSPLANT -: 40% STOMACH REMOVAL -: CARPAL TUNNEL REPAIR - Family History Father -: Heart disease, Hypertension, Diabetes Mother -: Hypertension, Stroke - Social History Alcohol use: No CD- Drugs: No Caffeine use: No Review of Systems 10-point ROS is otherwise unremarkable Physical Examination - Physical Exam General: Alert, In no apparent distress HEENT: Atraumatic, PERRLA, Mucous membr. moist/pink, EOMI, Sclerae nonicteric Neck: Supple, 2+ carotid pulse no bruit, No LAD, Without JVD or thyroid abnormality Respiratory: Normal air movement, Crackles/rales, Expiratory wheezes, Inspiratory wheezes Cardiovascular: Regular rate/rhythm, Normal S1 S2 Gastrointestinal: Normal bowel sounds, No tenderness Musculoskeletal: No tenderness Integumentary: No rashes Neurological: Normal gait, Normal speech, Normal strength at 5/5 x4 extr, Normal tone, Normal affect Lymphatics: No axilla or inguinal lymphadenopathy - Studies Laboratory Data (last 24 hrs) 02/04/19 10:00: PT 13.2 H, INR 1.12 02/04/19 10:00: WBC 4.8, Hgb 10.0 L, Hct 34.5 L, Plt Count 148 L 02/04/19 10:00: Sodium 141, Potassium 4.3, BUN 12, Creatinine 0.59, Glucose 119 H, Magnesium 1.8, Total Bilirubin 0.8, AST 21, ALT 15, Alkaline Phosphatase 78 Assessment and Plan - Problems (Diagnosis) (1) Acute respiratory distress Current Visit: Yes Status: Acute Plan: Patient acute on chronic respiratory failure most likely secondary to volume overload versus COPD exacerbation -currently on home oxygenation which has been continues here in the hospital. Will get ABGs done at this time. -initial x-ray in the ER consistent with pleural effusion versus interstitial pneumonia -duo nebs, steroids, oxygenation, antibiotics, Lasix at this -pulmonology has been consulted. Awaiting recommendations -blood and sputum cultures pending at this time -influenza scan all negative in the ER. -echo is pending at this time -cardiology is consulted (2) Rectal bleeding Current Visit: Yes Status: Acute Plan: Patient with rectal bleeding most likely secondary to hemorrhoids -hemoglobin has been 10.1 at this time -will consult GI at this time. Awaiting recommendations -also will get stool cultures done here in the hospital -CT abdomen and pelvis negative for any acute abnormality -H&H q. 8 hr along with IV Protonix (3) Pleural effusion Current Visit: Yes Status: Acute Plan: Patient with bilateral small pleural effusion left more than right most likely secondary to volume overload -will get CT of the chest at this time -started on IV Lasix -pulmonology has been consulted. Awaiting recommendations (4) Hypertension Current Visit: Yes Status: Chronic Plan: Will restart home medication Qualifiers: Hypertension type: essential hypertension Qualified Code(s): I10 - Essential (primary) hypertension (5) Diabetes Current Visit: Yes Status: Chronic Plan: Insulin sliding scale and Accu-Cheks Qualifiers: Diabetes mellitus type: type 2 Diabetes mellitus termite inspector insulin use: without termite inspector use Diabetes mellitus complication status: without complication Qualified Code(s): E11.9 - Type 2 diabetes mellitus without complications (6) Atrial fibrillation Current Visit: Yes Status: Chronic Plan: Patient currently with AFib rate control -started on beta-chuy and will hold Eliquis at this time given the rectal bleed Qualifiers: Atrial fibrillation type: unspecified Qualified Code(s): I48.91 - Unspecified atrial fibrillation (7) Status post kidney transplant Current Visit: Yes Status: Chronic Plan: Stable will restart home medication Discharge Plan: Home Plan to discharge in: Greater than 2 days - Advance Directives Does patient have a Living Will: No Does patient have a Durable POA for Healthcare: No - Code Status/Comfort Care Code Status Assessed: Yes Critical Care: No
[2019-02-04] MEDS ORDERED: SODIUM CHLORIDE 0.9% 10ML INJ IV PRN (16:49)
--- NOTE | 2019-02-04 17:40 | RAD REPORT ---
EXAM DESCRIPTION: CT - Thorax Wo Con CLINICAL HISTORY: Chest pain pulmonary edema COMPARISON: CTANGIO CHEST FOR PE dated 04/02/2014 FINDINGS: Moderate right and a small left pleural effusion is seen. Mild interstitial pulmonary lorna a is present with mild atelectasis in both lung bases. No pneumothorax. Moderate cardiomegaly. Trace pleural effusion. No axillary, mediastinal or hilar adenopathy. No concerning bony finding. Atrophic [place] kidneys. All CT scans are performed using dose optimization technique as appropriate and may include automated exposure control or mA/KV adjustment according to patient size. IMPRESSION: Bilateral pleural effusions, greater on the right, with mild atelectasis in both lung ba ses posteriorly. Moderate cardiomegaly with mild interstitial pulmonary edema.
[2019-02-04] MEDS: CEFTRIAXONE/SWI 1gm 1 GM/10 ML SYR IVP SCH (17:49)
[2019-02-04] MEDS: FUROSEMIDE 40 MG/4 ML VIAL IV SCH (17:49)
[2019-02-04] MEDS: AZITHROMYCIN IV 500 MG in NA CHLORIDE 0.9% 250 ML IVPB SCH (18:37)
--- NOTE | 2019-02-04 18:58 | CON ---
Chief Complaint: Dyspnea. History Of Present Illness: Mr. Lewis has been getting progressively more dyspneic for several days, several weeks, and decided to come to the hospital, where he had a diagnosis of congestive heart sal lure and pneumonia both. Mr. Lewis has a history of myocardial infarction about 10 years ago. He wa s treated with a stent. About the same time, he was diagnosed with congestive heart failure. We do not know what the list of his medications is. He is also a kidney transplant patient. He was on soniya lysis for two and half years and then received a kidney transplant. The kidney transplant is still w orking. The transplant is about 4 years old now. He quit smoking cigarettes about 10 years ago. He is allergic to penicillin, aspirin, and Coumadin. Physical Examination: General: He is older appearing than his 74 years stated, alert, oriented, pleasant. He has a mild s tare, make me wonder if there is thyroid disease. Abdomen: Soft. Lungs: Revealed bronchial-type breath sounds everywhere. No wheezes are appreciated. There are emilio e basilar crackles, dependent crackles. Heart: Irregularly irregular. It is going about 100-110 beats per minute. Diagnostic Data: His electrocardiogram shows what could be called multifocal atrial tachycardia, but it is sinus tachycardia with very frequent consecutive PACs. Actually, he has atrial fibrillation a nd he has been in atrial fibrillation as long ago as 2017. I do not know if he is a patient who take s anticoagulants or not. laboratory data reveals a normal troponin. Chest x-ray and CT scan reveale d bilateral pleural effusions and inferior part of the lung has diffuse opacities consistent with ate lectasis, pulmonary edema, or perhaps bilateral pneumonia. His N-terminal proBNP is over 3000. Assessment And Plan: We should do an echocardiogram. Diurese him, give him steroids and bronchodila tors and antibiotics, and see what we learn from those tests, see what we can do to help him the most. His creatinine is 0.59. SH/MODL Voice ID: [id number] Report ID: [id number]
[2019-02-04] MEDS: ALBUTEROL 2.5 MG/3 ML NEB SOL NEB SCH (19:56)
[2019-02-04] MEDS: IPRATROPIUM BROM 0.5MG/2.5ML NEB SCH (19:59)
[2019-02-04] MEDS: predniSONE 20 MG TAB PO SCH (20:57)
[2019-02-04] MEDS: INSULIN -REGULAR HUMAN 50 UNIT/0.5 ML ML SQ SCH (21:00)
[2019-02-04] MEDS ORDERED: PANTOPRAZOLE 40 MG INJ IVP SCH (21:00)
[2019-02-04 23:33] LABS: Hematocrit 33.4 % (39.6-49.0)
[2019-02-05] MEDS: ALBUTEROL 2.5 MG/3 ML NEB SOL NEB SCH ×2 (02:08→08:01)
[2019-02-05] MEDS: IPRATROPIUM BROM 0.5MG/2.5ML NEB SCH ×2 (02:08→08:01)
[2019-02-05 04:25] LABS: ALT/SGPT 12 U/L (12-78); AST/SGOT 8 U/L (15-37); Absolute Lymphocytes (CBC) 0.6 K/uL (0.7-4.9); Albumin 3.2 g/dL (3.4-5.0); Alkaline Phosphatase 64 U/L (45-117); BUN Blood Urea Nitrogen 16 mg/dL (7-18); Basophils % 0.2 % (0-1.3); Bicarbonate 37 mmol/L (21-32); Bilirubin Total 0.6 mg/dL (0.2-1.0); Glucose Level 103 mg/dL (74-106); Hematocrit 30.7 % (39.6-49.0); Lymphocytes % 14.3 % (15.3-44.8); MPV 9.1 fL (7.6-11.3); Magnesium 1.5 mg/dL (1.8-2.4); Potassium 3.9 mmol/L (3.5-5.1); Protein, Total 5.6 g/dL (6.4-8.2); RBC Red Blood Cell Count 4.32 M/uL (4.33-5.43); Sodium Level 142 mmol/L (136-145)
[2019-02-05] MEDS ORDERED: POTASSIUM CL SA 10 MEQ TAB PO ONE (07:14)
[2019-02-05] MEDS ORDERED: Magnesium Sulfate 2gm IVPB 2 G/50 ML BAG IV ONE (07:14)
[2019-02-05] MEDS: INSULIN -REGULAR HUMAN 50 UNIT/0.5 ML ML SQ SCH ×4 (07:30→21:00)
[2019-02-05] MEDS: TAFLUPROST EACH EYE SCH (09:00)
[2019-02-05] MEDS: HOME MED 1 EA UNK (Cyclosporine [Restasis] 1 DROP) EACH EYE SCH ×2 (09:00→21:00)
[2019-02-05] MEDS: [UNRECOGNIZED DRUG - OTHER] PO SCH (09:00)
[2019-02-05] MEDS: CHOLESTYRAMINE PO SCH (09:00)
[2019-02-05] MEDS: AZITHROMYCIN IV 500 MG in NA CHLORIDE 0.9% 250 ML IVPB SCH (09:00)
[2019-02-05] MEDS: HOME MED 1 EA UNK (Umeclidinium Bromide [Incruse Ellipta] 1 PUFF) IH SCH (09:00)
[2019-02-05 09:15] LABS: Ferritin 23.8 ng/mL (26-388)
[2019-02-05] MEDS: predniSONE 20 MG TAB PO SCH ×2 (09:38→20:34)
[2019-02-05] MEDS: FUROSEMIDE 40 MG/4 ML VIAL IV SCH ×2 (09:38→16:08)
[2019-02-05] MEDS: CEFTRIAXONE/SWI 1gm 1 GM/10 ML SYR IVP SCH (09:39)
[2019-02-05] MEDS: MYCOPHENOLATE MOFETIL 500 MG PO SCH ×2 (10:00→20:32)
[2019-02-05] MEDS: SUCRALFATE 1 GM TABLET PO SCH ×4 (10:00→20:34)
[2019-02-05] MEDS: DULOXETINE 30 MG CAP PO SCH (10:00)
[2019-02-05] MEDS: TACROLIMUS 1 MG PO SCH ×2 (10:00→20:32)
[2019-02-05] MEDS: allopurinoL 100 MG TAB PO SCH ×2 (10:00→20:34)
[2019-02-05] MEDS: LABETALOL HCL 100 MG TAB PO SCH ×2 (10:00→20:34)
[2019-02-05] MEDS: DIGOXIN 0.125 MG TABLET PO SCH (10:00)
[2019-02-05] MEDS: APIXABAN 2.5 MG TABLET PO SCH ×2 (10:00→20:33)
[2019-02-05] MEDS: PRIMIDONE 50 MG TAB PO SCH ×3 (10:00→20:33)
[2019-02-05] MEDS: PANTOPRAZOLE 40MG TABLET PO SCH ×2 (10:00→16:07)
--- NOTE | 2019-02-05 10:06 | RAD REPORT ---
EXAM DESCRIPTION: RAD - Chest Pa And Lat (2 Views) - 02/05/2019 9:20 am CLINICAL HISTORY: SOB Chest pain. COMPARISON: Chest Single View dated 02/04/2019; Chest Pa And Lat (2 Views) dated 03/31/2018; Chest Pa And Lat (2 Views) dated 11/06/2016; Chest Single View dated 01/04/2016 FINDINGS: Mild improvement in bilateral pulmonary opacities seen since prior study. Small bilateral pleural effusions persist. The heart is moderately enlarged in size. No displaced fractures. Atherosc lerosis. IMPRESSION: Mild improvement in lung aeration noted since prior study.
[2019-02-05 13:30] LABS: Hematocrit 32.1 % (39.6-49.0)
[2019-02-05] MEDS: IPRATROPIUM BROM 0.5MG/2.5ML NEB PRN (14:12)
[2019-02-05] MEDS: ALBUTEROL 2.5 MG/3 ML NEB SOL NEB PRN ×2 (14:21→20:40)
--- NOTE | 2019-02-05 15:39 | P.PN ---
Subjective Date of Service: 02/05/19 Primary Care Provider: Dr Almendarez Chief Complaint: rectal Bleeding and SOB Subjective: Other (Patient improved. Less shortness of breath noted. Normal rectal bleeding noted. Patient with history of hemorrhoids) Physical Examination - Vital Signs Temperature: 98.3 F Blood Pressure: 122/69 Pulse: 93 Respirations: 18 Pulse Ox (%): 96 - Physical Exam General: Alert, Cooperative HEENT: Atraumatic Neck: Supple Respiratory: Crackles/rales (Less crackles to the bases) Cardiovascular: Irregular heart rate/rhythm (AFib rate controlled) Gastrointestinal: Normal bowel sounds Musculoskeletal: No tenderness, No warmth Integumentary: No erythema, No warmth, No cyanosis Neurological: Normal speech - Studies Laboratory Data (last 24 hrs) 02/05/19 03:42: Sodium 142, Potassium 3.9, BUN 16, Creatinine 0.64, Glucose 103 , Magnesium 1.5 L, Total Bilirubin 0.6, AST 8 L, ALT 12, Alkaline Phosphatase 64 02/05/19 03:42: WBC 4.4, Hgb 9.0 L, Hct 30.7 L, Plt Count 132 L 02/04/19 23:16: Hgb 9.6 L, Hct 33.4 L 02/04/19 10:00: WBC 4.8, Hgb 10.0 L, Hct 34.5 L, Plt Count 148 L Microbiology Data (last 24 hrs): 02/04/19 12:04 Blood - Blood Anaerobic Blood Culture - Final 02/04/19 11:50 Blood - Blood Anaerobic Blood Culture - Final 02/04/19 17:15 Nasopharnyx Influenza Type A Antigen Screen - Final 02/04/19 17:15 Nasopharnyx Influenza Type B Antigen Screen - Final Medications List Reviewed: Yes Assessment & Plan Discharge Plan: Home Plan to discharge in: 24 Hours Physician Review Additional Text: Impression: Acute on chronic respiratory failure likely related to suspected acute on chronic diastolic CHF COPD Rectal bleeding related to hemorrhoids Anemia with iron and B12 deficiency Atrial fibrillation on chronic anti coagulation therapy Hypertension Diabetes mellitus type 2 non insulin dependent History of kidney transplant on immunosuppressive therapy Plan: Acute on chronic respiratory failure likely related to suspected acute on chronic diastolic CHF: Case discussed with cardiology and pulmonology. Suspect diastolic CHF exacerbation. Await echo results. Continue with diuresis. Patient will likely require Lasix and Aldactone at discharge. Continue 1500 cc per day fluid restriction. Will monitor chest x-ray. Will try to wean off oxygen. Will monitor closely. Anticipate discharge as early as tomorrow. COPD: Continue with medication. Case discussed with pulmonology. Patient started on antibiotic therapy. Rectal bleeding related to hemorrhoids: Normal bleeding noted. Patient on chronic anti coagulation therapy. Case discussed with cardiology. Will decrease Eliquis to 2.5 mg 1 pill twice daily. Will monitor hemoglobin. Anemia with iron and B12 deficiency: Will monitor hemoglobin. Continue iron and B12 supplementation. Atrial fibrillation on chronic anti coagulation therapy: Continue medication. Case discussed with cardiology. Will decrease Eliquis. Hypertension: Continue medication. Diabetes mellitus type 2 non insulin dependent: Monitor Accu-Cheks and provide sliding scale. History of kidney transplant on immunosuppressive therapy: Continue home medication. Time Spent Managing Pts Care (In Minutes): 55
[2019-02-05] MEDS: levoFLOXacin 500 MG TAB PO SCH (16:00)
[2019-02-05] MEDS: CYANOCOBALAMIN 1,000 MCG TAB PO SCH (16:14)
[2019-02-05] MEDS: SOD FERRIC GLUC COMPLX/SUCROSE 125 MG in NA CHLORIDE 0.9% 100 ML IV SCH (17:00)
[2019-02-05] MEDS ORDERED: MAGNESIUM SULFATE 1 gm IVPB 1 GM/100 ML BAG IV ONE (17:00)
[2019-02-05 17:37] LABS: Arterial Blood Carboxyhemoglob 2.8 % (0-1.5); Blood Gas Oxyhemoglobin 88.1 % (94-97); Blood O2 Saturation 91.1 % (92-98.5)
[2019-02-05 17:38] LABS: Blood Gas RHB 10.2 %
[2019-02-05] MEDS ORDERED: HYDROCORTISONE ACETATE 25MG SUPP PR PRN (19:36)
[2019-02-05] MEDS: ROSUVASTATIN 10 MG TAB PO SCH (20:33)
[2019-02-05] MEDS: BUDESONIDE 0.25 MG/2 ML NEB NEB SCH (20:40)
[2019-02-05] MEDS: CARBOXYMETHYLCELLULOSE SODIUM EACH EYE SCH (21:00)
--- NOTE | 2019-02-06 00:34 | PN ---
The patient admitted to Dr. Riggs on 02/04/2019, was seen by Dr. Montalvo on 02/04/2019. The patient h as had a history of kidney transplant, CAD status post stent, congestive heart failure. He came in w ith congestive heart failure exacerbation as well as his COPD exacerbation. A chest x-ray and a CT s can showed mild interstitial edema, bilateral effusion, atelectasis, possible pneumonia. The patient is in atrial fibrillation with a rate of 84 with a right bundle-branch block. Overnight, he improve d on diuresis, inhalers, and antibiotics. Echocardiogram is pending. We need to continue his presen t management. I think he should be on anticoagulants with his atrial fibrillation and his risk facto rs. He has a very high CHADS score. He is comfortable enough. I think he can [facility] and we can see him in the office in the next week or 2. Case was discussed with Dr. August. RADHA/TALIA Voice ID: [id number] Report ID: [id number]
[2019-02-06 06:56] LABS: BUN Blood Urea Nitrogen 17 mg/dL (7-18); Bicarbonate 37 mmol/L (21-32); Glucose Level 135 mg/dL (74-106); Magnesium 1.9 mg/dL (1.8-2.4); Sodium Level 140 mmol/L (136-145)
[2019-02-06 07:13] LABS: Absolute Lymphocytes (CBC) 0.5 K/uL (0.7-4.9); Basophils % 0.5 % (0-1.3); Hematocrit 30.4 % (39.6-49.0); Lymphocytes % 11.6 % (15.3-44.8); MPV 9.1 fL (7.6-11.3); RBC Red Blood Cell Count 4.33 M/uL (4.33-5.43)
[2019-02-06] MEDS: INSULIN -REGULAR HUMAN 50 UNIT/0.5 ML ML SQ SCH ×4 (07:30→21:00)
--- NOTE | 2019-02-06 08:03 | ECHO ---
HEIGHT: 5 ft 11 in WEIGHT: 240 lb 0 oz DATE OF STUDY: 02/04/[address]: Bruna Riggs MD 2-DIMENSIONAL: YES M.MODE: YES DOPPLER: YES COLOR FLOW: YES TDS: NO PORTABLE: YES DEFINITY: NO BUBBLE STUDY: NO DIAGNOSIS: CONGESTIVE HEART FAILURE CARDIAC HISTORY: CATHERIZATION: YES SURGERY: NO PROSTHETIC VALVE: NO PACEMAKER: NO MEASUREMENTS (cm) DIASTOLIC (NORMALS) SYSTOLIC (NORMALS) IVSd 1.2 (0.6-1.2) LA Diam 6.4 (1.9-4.0) LVEF 62% LVIDd 4.1 (3.5-5.7) LVIDs 2.8 (2.0-3.5) %FS 33% LVPWd 1.3 (0.6-1.2) Ao Diam 3.2 (2.0-3.7) 2 DIMENSIONAL ASSESSMENT: RIGHT ATRIUM: DILATED LEFT ATRIUM: MARKEDLY DILATED RIGHT VENTRICLE: NORMAL LEFT VENTRICLE: LEFT VENTRICULAR HYPERTROPHY TRICUSPID VALVE: NORMAL MITRAL VALVE: NORMAL PULMONIC VALVE: NORMAL AORTIC VALVE: STENOSIS PERICARDIAL EFFUSION: NONE AORTIC ROOT: NORMAL LEFT VENTRICULAR WALL MOTION: NORMAL DOPPLER/COLOR FLOW: MODERATE AORTIC STENOSIS. PEAK MEAN GRADIENT 37/21. ESTIMATED AORTIC VALVE AREA 1.0 CENTIMETERS SQUARED. MILD MITRAL AND TRICUSPID REGURGITATION. SEVERE PULMONARY HYPERTENSION. ESTIMATED RIGHT VENTRICULAR SYSTOLIC PRESSURE 70 mmHg. ESTIMATED RIGHT ATRIAL PRESSURE 15 mmHg. COMMENTS: NORMAL LEFT VENTRICULAR EJECTION FRACTION. LEFT VENTRICULAR HYPERTROPHY. DILATED LEFT AND RIGHT ATRIUM. MODERATE AORTIC STENOSIS. MILD MITRAL AND TRICUSPID REGURGITATION. SEVERE PULMONARY HYPERTENSION. TECHNOLOGIST: Kenneth ECHEVERRIA
--- NOTE | 2019-02-06 08:45 | RAD REPORT ---
EXAM DESCRIPTION: NM - GI Blood Loss Imaging - 02/06/2019 8:14 am CLINICAL HISTORY: Gastrointestinal bleeding COMPARISON: None. TECHNIQUE: The patient was administered 26.8 millicuries technetium labeled red blood cells. Dynamic images of the abdomen and pelvis were obtained for 60 minutes FINDINGS: No abnormal radiotracer activity is seen within the bowel. Radiotracer activity within the upper right pelvis corresponds to the transplant kidney. IMPRESSION: No evidence of active gastrointestinal bleeding during the examination
[2019-02-06] MEDS: IPRATROPIUM BROM 0.5MG/2.5ML NEB PRN ×2 (08:47→19:55)
[2019-02-06] MEDS: BUDESONIDE 0.25 MG/2 ML NEB NEB SCH ×2 (08:47→19:55)
[2019-02-06] MEDS: HOME MED 1 EA UNK (Cyclosporine [Restasis] 1 DROP) EACH EYE SCH ×2 (09:00→21:00)
[2019-02-06] MEDS ORDERED: CYANOCOBALAMIN 1,000 MCG TAB PO SCH (09:00)
[2019-02-06] MEDS: CHOLESTYRAMINE PO SCH (09:00)
[2019-02-06] MEDS: HYDROCORTISONE ACETATE 25MG SUPP PR SCH (09:00)
[2019-02-06] MEDS: [UNRECOGNIZED DRUG - OTHER] PO SCH (09:00)
[2019-02-06] MEDS: TAFLUPROST EACH EYE SCH (09:00)
[2019-02-06] MEDS: HOME MED 1 EA UNK (Umeclidinium Bromide [Incruse Ellipta] 1 PUFF) IH SCH (09:00)
[2019-02-06] MEDS: APIXABAN 2.5 MG TABLET PO SCH ×2 (09:12→21:35)
[2019-02-06] MEDS: MYCOPHENOLATE MOFETIL 500 MG PO SCH ×2 (09:12→21:35)
[2019-02-06] MEDS: TACROLIMUS 1 MG PO SCH ×2 (09:13→21:36)
[2019-02-06] MEDS: DIGOXIN 0.125 MG TABLET PO SCH (09:14)
[2019-02-06] MEDS: PANTOPRAZOLE 40MG TABLET PO SCH ×2 (09:15→17:45)
[2019-02-06] MEDS: predniSONE 20 MG TAB PO SCH ×2 (09:15→21:33)
[2019-02-06] MEDS: DULOXETINE 30 MG CAP PO SCH (09:15)
[2019-02-06] MEDS: levoFLOXacin 500 MG TAB PO SCH (09:15)
[2019-02-06] MEDS: LABETALOL HCL 100 MG TAB PO SCH ×2 (09:15→21:33)
[2019-02-06] MEDS: allopurinoL 100 MG TAB PO SCH ×2 (09:15→21:34)
[2019-02-06] MEDS: CYANOCOBALAMIN 1,000 MCG TAB PO SCH (09:16)
[2019-02-06] MEDS: PRIMIDONE 50 MG TAB PO SCH ×3 (09:16→21:36)
[2019-02-06] MEDS: FUROSEMIDE 40 MG/4 ML VIAL IV SCH ×2 (09:16→17:46)
[2019-02-06] MEDS: SUCRALFATE 1 GM TABLET PO SCH ×4 (09:16→21:33)
[2019-02-06] MEDS: SOD FERRIC GLUC COMPLX/SUCROSE 125 MG in NA CHLORIDE 0.9% 100 ML IV SCH (09:17)
--- NOTE | 2019-02-06 18:06 | P.PN ---
Subjective Date of Service: 02/06/19 Primary Care Provider: Dr Almendarez Chief Complaint: rectal Bleeding and SOB Subjective: New changes (Not SOB at rest today, like last night. Feels better. Hgb stable at 9.0. No blood seen by patient or RNs. Echo revealed moderate aortic stenosis and severe pulmonary hypertension with with LVH and normal mitral valve. He had 2 stools today with only 2 of the stool tests done. He is tolerating heart healthy diet and Eliquis for his A fib) Review of Systems Respiratory: Shortness of Breath (Improved ) Physical Examination - Vital Signs Temperature: 98.2 F Blood Pressure: 139/79 Pulse: 83 Respirations: 20 Pulse Ox (%): 98 - Physical Exam General: Alert, In no apparent distress, Oriented x3, Cooperative HEENT: Atraumatic, Normocephalic, PERRLA, EOMI Neck: Supple Respiratory: Diminished Cardiovascular: Irregular heart rate/rhythm Gastrointestinal: Soft and benign, No tenderness, No rebound, No guarding Neurological: Normal speech - Studies Microbiology Data (last 24 hrs): 02/04/19 12:04 Blood - Blood Anaerobic Blood Culture - Final Medications List Reviewed: Yes Assessment And Plan - Current Problems (Diagnosis) (1) Hematochezia Current Visit: Yes Status: Acute Comment: Colonoscopy in ~ 2017 with colon polyps and hemorrhoids by recollection. EGD in ~ 2017. No bleeding since hemorrhoid therapy and lower Eliquis dose. (2) Anemia Current Visit: Yes Status: Acute Comment: Hgb stable. Getting ordered iron infusions (3) Aortic stenosis Current Visit: Yes Status: Acute (4) Pulmonary hypertension Current Visit: Yes Status: Acute (5) Acute respiratory distress Current Visit: Yes Status: Acute (6) Pleural effusion Current Visit: Yes Status: Acute (7) Atrial fibrillation Current Visit: Yes Status: Chronic Qualifiers: Atrial fibrillation type: unspecified Qualified Code(s): I48.91 - Unspecified atrial fibrillation (8) Diabetes Current Visit: Yes Status: Chronic Qualifiers: Diabetes mellitus type: type 2 Diabetes mellitus detention insulin use: without detention use Diabetes mellitus complication status: without complication Qualified Code(s): E11.9 - Type 2 diabetes mellitus without complications (9) Hypertension Current Visit: Yes Status: Chronic Qualifiers: Hypertension type: essential hypertension Qualified Code(s): I10 - Essential (primary) hypertension (10) Status post kidney transplant Current Visit: Yes Status: Chronic (11) Shortness of breath Onset Date: 04/05/14 Current Visit: No Status: Acute - Plan REC: 1) await stool studies 2) complete ordered iron infusions 3) monitor labs and transfuse prn 4) consider EGD / colonoscopy if hgb does not increase over time & cardiopulm status appropriate for endoscopies Physician Review Additional Text: Impression: Acute on chronic respiratory failure likely related to suspected acute on chronic diastolic CHF COPD Rectal bleeding related to hemorrhoids Anemia with iron and B12 deficiency Atrial fibrillation on chronic anti coagulation therapy Hypertension Diabetes mellitus type 2 non insulin dependent History of kidney transplant on immunosuppressive therapy Plan: Acute on chronic respiratory failure likely related to suspected acute on chronic diastolic CHF: Case discussed with cardiology and pulmonology. Suspect diastolic CHF exacerbation. Await echo results. Continue with diuresis. Patient will likely require Lasix and Aldactone at discharge. Continue 1500 cc per day fluid restriction. Will monitor chest x-ray. Will try to wean off oxygen. Will monitor closely. Anticipate discharge as early as tomorrow. COPD: Continue with medication. Case discussed with pulmonology. Patient started on antibiotic therapy. Rectal bleeding related to hemorrhoids: Normal bleeding noted. Patient on chronic anti coagulation therapy. Case discussed with cardiology. Will decrease Eliquis to 2.5 mg 1 pill twice daily. Will monitor hemoglobin. Anemia with iron and B12 deficiency: Will monitor hemoglobin. Continue iron and B12 supplementation. Atrial fibrillation on chronic anti coagulation therapy: Continue medication. Case discussed with cardiology. Will decrease Eliquis. Hypertension: Continue medication. Diabetes mellitus type 2 non insulin dependent: Monitor Accu-Cheks and provide sliding scale. History of kidney transplant on immunosuppressive therapy: Continue home medication.
[2019-02-06] MEDS: CARBOXYMETHYLCELLULOSE SODIUM EACH EYE SCH (21:00)
--- NOTE | 2019-02-06 21:03 | P.PN ---
Subjective Date of Service: 02/06/19 Primary Care Provider: Dr Almendarez Chief Complaint: rectal Bleeding and SOB Subjective: Doing well Physical Examination - Vital Signs Temperature: 98.2 F Blood Pressure: 139/79 Pulse: 83 Respirations: 20 Pulse Ox (%): 98 - Physical Exam General: Alert HEENT: Atraumatic Neck: Supple Respiratory: Clear to auscultation bilaterally - Studies Medications List Reviewed: Yes Assessment & Plan Discharge Plan: Home Plan to discharge in: 24 Hours Physician Review Additional Text: Impression: Acute on chronic respiratory failure likely related to suspected acute on chronic diastolic CHF COPD Rectal bleeding related to hemorrhoids Anemia with iron and B12 deficiency Atrial fibrillation on chronic anti coagulation therapy Hypertension Diabetes mellitus type 2 non insulin dependent History of kidney transplant on immunosuppressive therapy Plan: Acute on chronic respiratory failure likely related to suspected acute on chronic diastolic CHF: Case discussed with cardiology and pulmonology. Continue with diuresis. Patient will likely require Lasix and Aldactone at discharge. Continue 1500 cc per day fluid restriction. Anticipate discharge tomorrow if clinically improved. Dr. Rodriges will continue coverage. COPD: Continue with medication. Case discussed with pulmonology. Patient started on antibiotic therapy. Rectal bleeding related to hemorrhoids: Patient now on a lower dose Eliquis 2.5 mg 1 pill twice daily. Continue to monitor hemoglobin. No bleeding noted. Anemia with iron and B12 deficiency: Will monitor hemoglobin. Continue iron and B12 supplementation. Atrial fibrillation on chronic anti coagulation therapy: Continue medication. Case discussed with cardiology. Eliquis has been decreased. Hypertension: Continue medication. Diabetes mellitus type 2 non insulin dependent: Monitor Accu-Cheks and provide sliding scale. History of kidney transplant on immunosuppressive therapy: Continue home medication. Time Spent Managing Pts Care (In Minutes): 30
[2019-02-06] MEDS: ROSUVASTATIN 10 MG TAB PO SCH (21:34)
[2019-02-07 07:01] LABS: BUN Blood Urea Nitrogen 20 mg/dL (7-18); Bicarbonate 38 mmol/L (21-32); Glucose Level 174 mg/dL (74-106); Magnesium 1.8 mg/dL (1.8-2.4); Sodium Level 142 mmol/L (136-145)
[2019-02-07 07:18] LABS: Absolute Lymphocytes (CBC) 0.4 K/uL (0.7-4.9); Basophils % 0.1 % (0-1.3); Lymphocytes % 7.7 % (15.3-44.8); MPV 9.1 fL (7.6-11.3); RBC Red Blood Cell Count 4.63 M/uL (4.33-5.43)
[2019-02-07] MEDS: INSULIN -REGULAR HUMAN 50 UNIT/0.5 ML ML SQ SCH (07:30)
[2019-02-07] MEDS: BUDESONIDE 0.25 MG/2 ML NEB NEB SCH (08:00)
[2019-02-07] MEDS: HYDROCORTISONE ACETATE 25MG SUPP PR SCH (09:00)
[2019-02-07] MEDS: CHOLESTYRAMINE PO SCH (09:00)
[2019-02-07] MEDS: HOME MED 1 EA UNK (Cyclosporine [Restasis] 1 DROP) EACH EYE SCH (09:00)
[2019-02-07] MEDS: HOME MED 1 EA UNK (Umeclidinium Bromide [Incruse Ellipta] 1 PUFF) IH SCH (09:00)
[2019-02-07] MEDS: [UNRECOGNIZED DRUG - OTHER] PO SCH (09:00)
[2019-02-07] MEDS: TAFLUPROST EACH EYE SCH (09:00)
[2019-02-07] MEDS ORDERED: MAGNESIUM SULFATE 1 gm IVPB 1 GM/100 ML BAG IV ONE (09:00)
[2019-02-07] MEDS: TACROLIMUS 1 MG PO SCH (09:12)
[2019-02-07] MEDS: MYCOPHENOLATE MOFETIL 500 MG PO SCH (09:13)
[2019-02-07] MEDS: SOD FERRIC GLUC COMPLX/SUCROSE 125 MG in NA CHLORIDE 0.9% 100 ML IV SCH (09:14)
[2019-02-07] MEDS: FUROSEMIDE 40 MG/4 ML VIAL IV SCH (09:20)
[2019-02-07] MEDS: allopurinoL 100 MG TAB PO SCH (09:22)
[2019-02-07] MEDS: DIGOXIN 0.125 MG TABLET PO SCH (09:22)
[2019-02-07] MEDS: PANTOPRAZOLE 40MG TABLET PO SCH (09:22)
[2019-02-07] MEDS: levoFLOXacin 500 MG TAB PO SCH (09:22)
[2019-02-07] MEDS: DULOXETINE 30 MG CAP PO SCH (09:22)
[2019-02-07] MEDS: CYANOCOBALAMIN 1,000 MCG TAB PO SCH (09:23)
[2019-02-07] MEDS: LABETALOL HCL 100 MG TAB PO SCH (09:23)
[2019-02-07] MEDS: predniSONE 20 MG TAB PO SCH (09:23)
[2019-02-07] MEDS: APIXABAN 2.5 MG TABLET PO SCH (09:23)
[2019-02-07] MEDS: SUCRALFATE 1 GM TABLET PO SCH (09:23)
[2019-02-07 09:27] VITALS: BP 171/100
[2019-02-07 09:35] LABS: Anisocytosis 2+; Blood Morphology Comment NOTED (NOT SEEN); Elliptocytes 1+; Hypochromasia 1+; Platelet Estimate ADEQ; Stomatocytes 1+; Urine White Blood Cell Casts OK
--- NOTE | 2019-02-07 09:51 | P.DS ---
Admission Date: 02/05/19 Discharge Date: 02/07/19 Primary Care Provider: Dr Almendarez Disposition: ROUTINE DISCHARGE Discharge Condition: FAIR Reason for Admission: rectal Bleeding and SOB Brief History of Present Illness: Patient is 74 years of age admitted with worsening shortness of breath on some rectal bleeding was seen by GI possibly related to hemorrhoids his condition has been stable since admission shortness of breath improved in addition patient has COPD also on transplant medications Hospital Course: Patient was diuresed did well no further episodes of bleeding no diarrhea of discharge was alert oriented responsive cooperative blood pressure was mildly elevated patient is still shortness of breath had improved labs reviewed hemoglobin stable mild microcytosis seen by Dr. bentley and Marilu and in the hospital patient was changed to trilogy if approved by his pharmacy patient has hypoxemia hypercapnia echocardiogram shows severe pulmonary hypertension left ventricular hypertrophy most likely diastolic dysfunction CT scan of the chest in the abdomen shows interstitial changes with bilateral pleural effusion consistent with worsening CHF was no evidence of GI bleeding on GI scan patient was treated with outpatient antibiotics and higher doses of steroids with no relief before E and appeared in the hospital doubt sepsis cultures negative Vital Signs/Physical Exam: Temp Pulse Resp BP Pulse Ox 97.7 F 86 20 171/100 H 90 L 02/07/19 04:00 02/07/19 09:23 02/07/19 04:00 02/07/19 09:23 02/07/19 04:00 Laboratory Data at Discharge: WBC 5.5 K/uL (4.3-10.9) D 02/07/19 06:00 Hgb 9.5 g/dL (13.6-17.9) L 02/07/19 06:00 Hct 33.0 % (39.6-49.0) L 02/07/19 06:00 Plt Count 171 K/uL (152-406) 02/07/19 06:00 PT 13.2 SECONDS (9.2-12.8) H 02/04/19 10:00 INR 1.12 02/04/19 10:00 Sodium 142 mmol/L (136-145) 02/07/19 06:00 Potassium 4.0 mmol/L (3.5-5.1) 02/07/19 06:00 BUN 20 mg/dL (7-18) H 02/07/19 06:00 Creatinine 0.67 mg/dL (0.55-1.3) 02/07/19 06:00 Glucose 174 mg/dL (74-106) H 02/07/19 06:00 Magnesium 1.8 mg/dL (1.8-2.4) 02/07/19 06:00 Total Bilirubin 0.6 mg/dL (0.2-1.0) 02/05/19 03:42 AST 8 U/L (15-37) L 02/05/19 03:42 ALT 12 U/L (12-78) 02/05/19 03:42 Alkaline Phosphatase 64 U/L (45-117) 02/05/19 03:42 Home Medications: Albuterol Sulfate [Proair Hfa] 90 mcg IH QID PRN 09/30/17 Apixaban [Eliquis] 5 mg PO BID 09/30/17 Carboxymethylcellulose Sodium [Refresh Liquigel] 1 drop EACH EYE BEDTIME Cyclosporine [Restasis] 1 drop EACH EYE BID 09/30/17 Diclofenac Sodium [Voltaren] 1 gm TP TID 09/30/17 Digoxin [Lanoxin*] 1 tab PO DAILY 09/30/17 Furosemide [Lasix] 40 mg PO BID 09/30/17 Hydrocodone Bit/Acetaminophen [[place] 7.5-325 Tablet] 3 tab PO DAILY PRN Insulin Aspart Protam & Aspart [Novolog Mix 70-30 Flexpen Syrn] 15 unit SQ DAILY AT SUPPER 09/30/17 Insulin Aspart Protam & Aspart [Novolog Mix 70-30 Flexpen Syrn] 25 unit SQ BREAKFAST 09/30/17 Labetalol HCl [Trandate] 200 mg PO BID 09/30/17 Mycophenolate Mofetil [Cellcept] 4 tab PO DAILY 09/30/17 Pantoprazole Sodium [Protonix] 40 mg PO BID 09/30/17 Potassium Chloride [Klor-Con 10] 10 meq PO DAILY 09/30/17 Prednisone [Daniel] 5 mg PO DAILY 09/30/17 Primidone [Mysoline] 50 mg PO TID 09/30/17 Rosuvastatin [Crestor*] 10 mg PO BEDTIME 09/30/17 Sucralfate [Carafate] 1 gm PO QID 09/30/17 Tacrolimus [Prograf] 3 mg PO Q12HR 08/06/18 allopurinoL [Allopurinol] 100 mg PO BID 09/30/17 Cholestyramine (with Sugar) [Cholestyramine Packet] 2 packet PO DAILY 02/04/19 Duloxetine [Cymbalta *] 30 mg PO DAILY 02/04/19 Ipratropium [place] 2 spray NS QID 02/04/19 Tafluprost/Pf [Zioptan 0.0015% Eye Drops] 1 gtt EACH EYE DAILY 02/04/19 Fluticasone/Umeclidin/Vilanter [Trelegy Ellipta 100-62.5-25] 1 each IH DAILY # 30 blst.w.dev 02/07/19 New Medications: Fluticasone/Umeclidin/Vilanter [Trelegy Ellipta 100-62.5-25] 1 each IH DAILY # 30 blst.w.dev Patient Discharge Instructions: I have faxed in a prescription for trilogy patient to stop taking Breo an [facility] AF pharmacy was pulse supply him with trilogy otherwise resume his inhalers. Patient to take 10 mg of prednisone for a week and then decrease it to 5 mg Diet: Low sodium Activity: Ad santos Followup: Justin Kitchen MD [ACTIVE - CAN ADMIT] - Dov Michel MD [ACTIVE - CAN ADMIT] -
[2019-02-07 09:55] VITALS: O2SAT 99
--- NOTE | 2019-02-07 09:55 | P.CNS ---
Date of Consult: 02/05/19 Primary Care Provider: Dr Almendarez Chief Complaint: rectal Bleeding and SOB History of Present Illness: Patient is 74 years old with a history of COPD admitted with a worsening shortness of breath and some rectal bleeding in the short of breath for the past 3 weeks and was treated with outpatient doses of antibiotics and steroids with no relief became worse ended up here in the hospital with worsening heart failure compliant with his medications no fever or chills patient is a renal transplant patient Allergies Penicillins Allergy (Verified 04/02/14 21:19) Itching/Hives/Rash aspirin Adverse Reaction (Verified 09/30/17 12:16) Rash warfarin Adverse Reaction (Verified 09/30/17 12:16) Rash Home Medications: Albuterol Sulfate [Proair Hfa] 90 mcg IH QID PRN 09/30/17 Apixaban [Eliquis] 5 mg PO BID 09/30/17 Carboxymethylcellulose Sodium [Refresh Liquigel] 1 drop EACH EYE BEDTIME Cyclosporine [Restasis] 1 drop EACH EYE BID 09/30/17 Diclofenac Sodium [Voltaren] 1 gm TP TID 09/30/17 Digoxin [Lanoxin*] 1 tab PO DAILY 09/30/17 Furosemide [Lasix] 40 mg PO BID 09/30/17 Hydrocodone Bit/Acetaminophen [[place] 7.5-325 Tablet] 3 tab PO DAILY PRN Insulin Aspart Protam & Aspart [Novolog Mix 70-30 Flexpen Syrn] 15 unit SQ DAILY AT SUPPER 09/30/17 Insulin Aspart Protam & Aspart [Novolog Mix 70-30 Flexpen Syrn] 25 unit SQ BREAKFAST 09/30/17 Labetalol HCl [Trandate] 200 mg PO BID 09/30/17 Mycophenolate Mofetil [Cellcept] 4 tab PO DAILY 09/30/17 Pantoprazole Sodium [Protonix] 40 mg PO BID 09/30/17 Potassium Chloride [Klor-Con 10] 10 meq PO DAILY 09/30/17 Prednisone [Daniel] 5 mg PO DAILY 09/30/17 Primidone [Mysoline] 50 mg PO TID 09/30/17 Rosuvastatin [Crestor*] 10 mg PO BEDTIME 09/30/17 Sucralfate [Carafate] 1 gm PO QID 09/30/17 Tacrolimus [Prograf] 3 mg PO Q12HR 09/30/17 allopurinoL [Allopurinol] 100 mg PO BID 09/30/17 Cholestyramine (with Sugar) [Cholestyramine Packet] 2 packet PO DAILY 02/04/19 Duloxetine [Cymbalta *] 30 mg PO DAILY 02/04/19 Ipratropium [place] 2 spray NS QID 02/04/19 Tafluprost/Pf [Zioptan 0.0015% Eye Drops] 1 gtt EACH EYE DAILY 02/04/19 Fluticasone/Umeclidin/Vilanter [Trelegy Ellipta 100-62.5-25] 1 each IH DAILY # 30 blst.w.dev 02/07/19 - Past Medical/Surgical History Diabetic: No -: COPD -: ARTHRITIS -: AFIB -: GI ULCERS -: GI BLEED -: R KNEE REPLACEMENT -: KIDNEY TRANSPLANT -: 40% STOMACH REMOVAL -: CARPAL TUNNEL REPAIR - Family History Father Medical History: Heart disease, Hypertension, Diabetes Mother Medical History: Hypertension, Stroke - Social History Alcohol use: No CD- Drugs: No Caffeine use: No Place of Residence: Home Review of Systems 10-point ROS is otherwise unremarkable General: Weakness Respiratory: Shortness of Breath Cardiovascular: Edema Physical Examination Temp Pulse Resp BP Pulse Ox 97.7 F 86 20 171/100 H 90 L 02/07/19 04:00 02/07/19 09:23 02/07/19 04:00 02/07/19 09:23 02/07/19 04:00 General: Alert, In no apparent distress, Oriented x3 Respiratory: Crackles/rales, Expiratory wheezes Cardiovascular: Normal S1 S2 Gastrointestinal: Normal bowel sounds, Soft and benign - Problems (1) CHF (congestive heart failure) Current Visit: Yes Status: Acute Plan: Patient is 74 years of age admitted with worsening shortness of breath presumed acute on chronic diastolic dysfunction CT scan shows interstitial changes bilateral pleural effusion doubt sepsis continue with diuresis is on bronchodilators at home labs reviewed blood gases show hypoxemia with hypercarbia patient has home oxygen compliant with his bronchodilator therapy patient is a mild microcytic anemia chemistries unremarkable vital signs stable also has some rectal bleeding was seen by GI and also by Cardiology I will prescribe him with trilogy at time of discharge to replace is Breo and in cruise Qualifiers: Heart failure type: diastolic
[2019-02-07 11:41] VITALS: TEMP 98.9
[2019-02-07] MEDS: PRIMIDONE 50 MG TAB PO SCH (11:42)
[2019-02-07 14:15] LABS: C.diff Antigen/Toxin Ag pos : Tox neg (NEG : NEG)
[2019-02-11 01:01] LABS: Lactoferrin, Stool <30.0 mcg/mL (<30.0)
== END 2019-02-07 12:19 | disposition home or self-care (01) | DRG 291 ==
LOC: ER 09:25 → ERHOLD 14:36 → 4TH 15:59 → OBSVTOIN 02-05 08:04
PROVIDERS: ADMIT Family Medicine; ATTEND Family Medicine
DX: I11.0 Hypertensive heart disease with heart failure (principal); J96.22 Acute and chronic respiratory failure with hypercapnia; J96.21 Acute and chronic respiratory failure with hypoxia; I48.20 Chronic atrial fibrillation, unspecified; Z94.0 Kidney transplant status; I50.33 Acute on chronic diastolic (congestive) heart failure; I27.20 Pulmonary hypertension, unspecified; J44.9 Chronic obstructive pulmonary disease, unspecified; K64.9 Unspecified hemorrhoids; D50.9 Iron deficiency anemia, unspecified; Z79.01 Long term (current) use of anticoagulants; E11.9 Type 2 diabetes mellitus without complications; Z79.899 Other long term (current) drug therapy; Z88.6 Allergy status to analgesic agent; Z88.0 Allergy status to penicillin
CPT/HCPCS: 36415; 71045; 71046; 71250; 74177; 78278; 80048; 80053; 80076; 82607; 82705; 82728; 82805; 82947; 83540; 83631; 83735; 83880; 84145; 84466; 84484; 85014; 85018; 85025; 85610; 86850; 86900; 86901; 87040; 87045; 87046; 87177; 87209; 87324; 87449; 87804; 89055; 93005; 93306; 94640; 94760; 96365; 96375; 99285; A9560; C9113; G0378; J0456; J0696; J1644; J1940; J2916; J2930; J3475; J7030; J7512; Q9967

== ENCOUNTER 2019-02-26 15:38 | Observation (INO) | payer OTHER ==
[2019-02-26 17:29] LABS: Urine Blood NEGATIVE (NEG); Urine Glucose NEGATIVE (NEG); Urine Protein NEGATIVE (NEG)
[2019-02-26 17:32] LABS: Protime INR 1.16
[2019-02-26] MEDS ORDERED: FUROSEMIDE 40 MG/4 ML VIAL ONE (17:32)
--- NOTE | 2019-02-26 17:43 | RAD REPORT ---
EXAM DESCRIPTION: Janell Single View02/26/2019 4:22 pm CLINICAL HISTORY: sob COMPARISON: 02/06/2020 FINDINGS: [id number] bilateral pulmonary opacities. Small right pleural effusion. The heart is moderately to markedly enlarged IMPRESSION: These findings likely represent CHF
[2019-02-26 17:45] LABS: Absolute Lymphocytes (CBC) 0.5 K/uL (0.7-4.9)
[2019-02-26 17:52] LABS: ALT/SGPT 13 U/L (12-78); AST/SGOT 9 U/L (15-37); Albumin 3.4 g/dL (3.4-5.0); Alkaline Phosphatase 70 U/L (45-117); BUN Blood Urea Nitrogen 16 mg/dL (7-18); Bicarbonate 36 mmol/L (21-32); Bilirubin Direct 0.2 mg/dL (0-0.2); Bilirubin Total 0.4 mg/dL (0.2-1.0); Glucose Level 130 mg/dL (74-106); Lipase 45 U/L (73-393); Magnesium 1.7 mg/dL (1.8-2.4); NT PRO-BNP 2714 pg/mL (<450); Potassium 4.3 mmol/L (3.5-5.1); Protein, Total 6.2 g/dL (6.4-8.2); Sodium Level 142 mmol/L (136-145); Troponin (Emerg Dept Use Only) < 0.02 ng/mL (0.0-0.045)
[2019-02-26 17:53] LABS: Urine Bacteria <20 /HPF (NONE SEEN); Urine RBC <5 /HPF (NONE SEEN)
[2019-02-26 17:54] LABS: Urine Culture Reflex Order NOT NEEDED
[2019-02-26 18:03] LABS: Anisocytosis 1+; Blood Morphology Comment NOTED (NOT SEEN); Hypochromasia 1+; Platelet Estimate DECR; Urine White Blood Cell Casts OK
[2019-02-26 18:07] LABS: Basophils % 1.2 % (0-1.3); Hematocrit 33.3 % (39.6-49.0); Lymphocytes % 9.8 % (15.3-44.8); MPV 9.3 fL (7.6-11.3); RBC Red Blood Cell Count 4.57 M/uL (4.33-5.43)
--- NOTE | 2019-02-26 18:23 | ER ---
Nurse's Notes [facility] Name: Yunior Lewis Age: 74 yrs Sex: Male : 1945 Arrival Date: 02/26/2019 Time: 15:42 Bed 8 Private MD: Diagnosis: Unspecified systolic (congestive) heart failure;Primary pulmonary hypertension;Pulmonary Hypertension Presentation: 02/26 15:48 Presenting complaint: EMS states: SOB, ROOM AIR SAT 75 AT HOME. Transition of care: bp patient was not received from another setting of care. Onset of symptoms is unknown. Risk Assessment: Do you want to hurt yourself or someone else? Patient reports no desire to harm self or others. Initial Sepsis Screen: Does the patient meet any 2 criteria? No. Patient's initial sepsis screen is negative. Does the patient have a suspected source of infection? Yes: Productive cough/pneumonia. Care prior to arrival: IV initiated. 22 GA, in the left hand. 15:48 Method Of Arrival: EMS: [facility] bp 15:48 Acuity: JAQUAN 2 bp Triage Assessment: 15:54 General: Appears in no apparent distress. uncomfortable, Behavior is cooperative, bp appropriate for age, anxious. Pain: Denies pain. EENT: No deficits noted. Neuro: No deficits noted. Cardiovascular: Rhythm is sinus rhythm. Respiratory: Reports shortness of breath air hunger. GI: No signs and/or symptoms were reported involving the gastrointestinal system. : No signs and/or symptoms were reported regarding the genitourinary system. Derm: No deficits noted. Musculoskeletal: No deficits noted. Historical: - Allergies: 15:54 NSAIDS; bp 15:54 PENICILLINS; bp 15:54 Warfarin; bp - Immunization history:: Adult Immunizations up to date. - Social history:: Smoking status: Patient/guardian denies using tobacco. - Ebola Screening: : No symptoms or risks identified at this time. Screenin:07 Abuse screen: Denies threats or abuse. Denies injuries from another. Nutritional bp screening: No deficits noted. Tuberculosis screening: No symptoms or risk factors identified. Fall Risk None identified. Assessment: 15:50 General: SEE TRIAGE NOTE. bp 17:23 Reassessment: BLOOD CX x2 SENT, VS STABLE. RESULTS PENDING. bp 17:33 Reassessment: PT REFUSING GARCIA PLACEMENT. REASONING EXPLAINED, BUT PT CONTINUES TO bp DECLINE. PT PROVIDED MX URINALS, AND PT ASSURES STAFF HE WILL CALL IF ASSISTANCE IS NEEDED. 18:37 Reassessment: ADMIT MD AT B/S. bp 19:30 General: Appears in no apparent distress. comfortable, Behavior is calm, cooperative, aj1 appropriate for age. Pain: Denies pain. Neuro: Level of Consciousness is awake, alert, obeys commands, Oriented to person, place, time, situation. Cardiovascular: Patient's skin is warm and dry. Respiratory: Reports shortness of breath at rest cough that is productive, hacking, persistent Airway is patent Respiratory effort is even, unlabored, Respiratory pattern is regular, symmetrical, Breath sounds with rhonchi bilaterally. GI: No signs and/or symptoms were reported involving the gastrointestinal system. : No signs and/or symptoms were reported regarding the genitourinary system. EENT: No signs and/or symptoms were reported regarding the EENT system. Derm: No signs and/or symptoms reported regarding the dermatologic system. Skin is pale, cyanosis noted to tip of nose. Musculoskeletal: No signs and/or symptoms reported regarding the musculoskeletal system. Circulation, motion, and sensation intact. 20:00 Reassessment: report called to Jennifer GUTIERREZ for room 229. bb Vital Signs: 16:02 BP 130 / 80; Pulse 87; Resp 20; Temp 97.1; Pulse Ox 100% ; Weight 91.63 kg; bp 17:00 BP 142 / 84; Pulse 83; Resp 16; Pulse Ox 100% ; bp 18:30 BP 133 / 88; Pulse 84; Resp 20; Pulse Ox 100% ; bp 19:30 BP 163 / 92; Pulse 95; Resp 22; Pulse Ox 92% on 3 lpm NC; aj1 ED Course: 15:42 Patient arrived in ED. em1 15:48 Aaron Wylie, BRENDA is Primary Nurse. bp 15:50 Yessi Lewis FNP-C is PHCP. snw 15:50 Joshua Chatman MD is Attending Physician. snw 15:50 Triage completed. bp 15:57 Arm band placed on. bp 16:06 Maintain EMS IV. Dressing intact. Good blood return noted. Site clean \T\ dry. Gauge \T\ bp site: 22 G LEFT HAND. 16:08 Patient has correct armband on for positive identification. Bed in low position. Call bp light in reach. Side rails up X2. 16:21 XRAY Chest (1 view) In Process Unspecified. EDMS 17:05 Inserted saline lock: 22 gauge in right forearm, using aseptic technique. Blood bp collected. 18:18 Brayden August DO is Hospitalizing Provider. snw 20:02 No provider procedures requiring assistance completed. Patient admitted, IV remains in aj1 place. Administered Medications: 17:15 Drug: Lasix 40 mg Route: IVP; Site: right forearm; bp Outcome: 18:21 Decision to Hospitalize by Provider. snw 20:10 Admitted to Tele accompanied by tech, via stretcher, room 229, with chart, Report bb called to Jennifer GUTIERREZ for room 229 20:10 Condition: stable 20:10 Instructed on the need for admit. 20:10 Patient left the ED. bb Signatures: Dispatcher [employer] EDMS Sanaz Pizarro RN RN aj1 Yessi Lewis, RETAIL MARKETING MANAGER-C RETAIL MARKETING MANAGER-Csnw Aleisha Belcher, RN RN bb Chuck Giordano em1 Aaron Wylie, RN RN bp
--- NOTE | 2019-02-26 18:23 | EDPHYS ---
Physician Documentation [facility] Name: Yunior Lewis Age: 74 yrs Sex: Male : 1945 Arrival Date: 02/26/2019 Time: 15:42 Bed 8 Private MD: ED Physician Joshua Chatman HPI: 02/26 18:24 This 74 yrs old Male presents to ER via EMS with complaints of Shortness Of snw Breath. 18:24 The patient has shortness of breath at rest. Onset: The symptoms/episode began/occurred snw gradually. Duration: The symptoms are continuous, and are steadily getting worse. Associated signs and symptoms: Pertinent positives: non-productive cough, fatigue. Severity of symptoms: At their worst the symptoms were moderate severe in the emergency department the symptoms are unchanged. The patient has experienced a previous episode, approximately 2 weeks ago, but today's symptoms are worse. The patient has been recently seen by a physician: The patient has been recently been admitted at [facility], was discharged a couple of weeks ago. Historical: - Allergies: 15:54 NSAIDS; bp 15:54 PENICILLINS; bp 15:54 Warfarin; bp - Immunization history:: Adult Immunizations up to date. - Social history:: Smoking status: Patient/guardian denies using tobacco. - Ebola Screening: : No symptoms or risks identified at this time. ROS: 18:24 Eyes: Negative for injury, pain, redness, and discharge, ENT: Negative for injury, snw pain, and discharge, Neck: Negative for injury, pain, and swelling, Cardiovascular: Negative for chest pain, palpitations, and edema. 18:24 Abdomen/GI: Negative for abdominal pain, nausea, vomiting, diarrhea, and constipation, Back: Negative for injury and pain, : Negative for injury, bleeding, discharge, and swelling, MS/Extremity: Negative for injury and deformity, Skin: Negative for injury, rash, and discoloration, Neuro: Negative for headache, weakness, numbness, tingling, and seizure, Psych: Negative for depression, anxiety, suicide ideation, homicidal ideation, and hallucinations. 18:24 Constitutional: Positive for body aches, malaise. 18:24 Respiratory: Positive for shortness of breath, at rest. Exam: 16:47 Eyes: Pupils equal round and reactive to light, extra-ocular motions intact. Lids and snw lashes normal. Conjunctiva and sclera are non-icteric and not injected. Cornea within normal limits. Periorbital areas with no swelling, redness, or edema. ENT: Nares patent. No nasal discharge, no septal abnormalities noted. Tympanic membranes are normal and external auditory canals are clear. Oropharynx with no redness, swelling, or masses, exudates, or evidence of obstruction, uvula midline. Mucous membranes moist. Neck: Trachea midline, no thyromegaly or masses palpated, and no cervical lymphadenopathy. Supple, full range of motion without nuchal rigidity, or vertebral point tenderness. No Meningismus. Chest/axilla: Normal chest wall appearance and motion. Nontender with no deformity. No lesions are appreciated. Cardiovascular: Regular rate and rhythm with a normal S1 and S2. No gallops, murmurs, or rubs. Normal PMI, no JVD. No pulse deficits. 16:47 Abdomen/GI: Soft, non-tender, with normal bowel sounds. No distension or tympany. No guarding or rebound. No evidence of tenderness throughout. Back: No spinal tenderness. No costovertebral tenderness. Full range of motion. Skin: Warm, dry with normal turgor. Normal color with no rashes, no lesions, and no evidence of cellulitis. MS/ Extremity: Pulses equal, no cyanosis. Neurovascular intact. Full, normal range of motion. Neuro: Awake and alert, GCS 15, oriented to person, place, time, and situation. Cranial nerves II-XII grossly intact. Motor strength 5/5 in all extremities. Sensory grossly intact. Cerebellar exam normal. Normal gait. Psych: Awake, alert, with orientation to person, place and time. Behavior, mood, and affect are within normal limits. 16:47 Constitutional: The patient appears alert, awake, obese, uncomfortable, speaking in 3-4 word sentences 16:47 Head/face: telangiectases to bilateral cheeks. 16:47 Respiratory: mild respiratory distress is noted, Respirations: accessory muscle usage, shallow respirations, splinting, Breath sounds: bronchial sounds, that are moderate, are heard diffusely, + upper airway congestion. difficulty carrying on conversation, on 15L NRB with 100% SpO2. Pt states he was recently dx with CHF, Pulmonary HTN, possible pneumonia. Pt was recently admitted. Eval per Dr. Kitchen, Dr. Chapa, Sees Dr. Almendarez. Pt states he didn"t know anything more on discharge from hospital than on admission. Home O2 prn at 4L/min. . Vital Signs: 16:02 BP 130 / 80; Pulse 87; Resp 20; Temp 97.1; Pulse Ox 100% ; Weight 91.63 kg; bp 17:00 BP 142 / 84; Pulse 83; Resp 16; Pulse Ox 100% ; bp 18:30 BP 133 / 88; Pulse 84; Resp 20; Pulse Ox 100% ; bp 19:30 BP 163 / 92; Pulse 95; Resp 22; Pulse Ox 92% on 3 lpm NC; aj1 MDM: 15:50 Patient medically screened. snw 18:21 Data reviewed: vital signs, nurses notes. Data interpreted: Pulse oximetry: on room air snw 10% oxygen by non-rebreather, HOURLY SALES STAFF at home on 4L nc Spo2 71% is 100 %. Interpretation: hypoxia. Counseling: I had a detailed discussion with the patient and/or guardian regarding: the historical points, exam findings, and any diagnostic results supporting the discharge/admit diagnosis, the presence of at least one elevated blood pressure reading (>120/80) during this emergency department visit, lab results, radiology results, the need for further work-up and treatment in the hospital. Physician consultation: Brayden August DO was called at 18:24, was contacted at 18:24. 02/26 16:00 Order name: Basic Metabolic Panel; Complete Time: 17:59 snw 02/26 16:00 Order name: CBC with Diff; Complete Time: 18:27 snw 02/26 16:00 Order name: LFT's; Complete Time: 17:59 snw 02/26 16:00 Order name: Magnesium; Complete Time: 17:59 snw 02/26 16:00 Order name: NT PRO-BNP; Complete Time: 17:59 snw 02/26 16:00 Order name: PT-INR; Complete Time: 17:41 snw 02/26 16:00 Order name: Troponin (emerg Dept Use Only); Complete Time: 17:59 snw 02/26 16:00 Order name: T\\T\\S; Complete Time: 18:27 snw 02/26 16:00 Order name: Sed Rate; Complete Time: 18:27 snw 02/26 16:00 Order name: C-Reactive Protein; Complete Time: 17:59 snw 02/26 16:00 Order name: Blood Culture Adult (2) snw 02/26 16:00 Order name: Lipase; Complete Time: 17:59 snw 02/26 16:00 Order name: Procalcitonin; Complete Time: 18:27 snw 02/26 16:00 Order name: Urine Microscopic Only; Complete Time: 17:59 snw 02/26 16:00 Order name: XRAY Chest (1 view); Complete Time: 18:01 snw 02/26 16:00 Order name: EKG; Complete Time: 16:02 snw 02/26 16:00 Order name: Cardiac monitoring; Complete Time: 17:01 snw 02/26 16:00 Order name: EKG - Nurse/Tech; Complete Time: 17:22 snw 02/26 16:00 Order name: IV Saline Lock; Complete Time: 16:12 snw 02/26 16:00 Order name: Labs collected and sent; Complete Time: 17:22 snw 02/26 16:00 Order name: O2 Per Protocol; Complete Time: 17:01 snw 02/26 16:00 Order name: O2 Sat Monitoring; Complete Time: 17:01 w 02/26 16:00 Order name: Accucheck; Complete Time: 17:22 snw 02/26 16:00 Order name: Urine Dipstick-Ancillary (obtain specimen); Complete Time: 17:22 sn 02/26 17:16 Order name: Glucose, Ancillary Testing; Complete Time: 17:24 EDIA 02/26 17:23 Order name: Urine Dipstick--Ancillary (enter results) em1 02/26 17:29 Order name: Urine Dipstick-Ancillary EDIA 02/26 18:03 Order name: CBC Smear Scan; Complete Time: 18:27 EDIA 02/26 18:31 Order name: CONS Physician Consult EDMS Administered Medications: 17:15 Drug: Lasix 40 mg Route: IVP; Site: right forearm; bp Disposition: 02/27 07:30 Co-signature as Attending Physician, Joshua Chatman MD I agree with the assessment and kdr plan of care. Disposition: 02/26/19 18:21 Hospitalization ordered by Brayden August for Observation. Preliminary diagnosis are Unspecified systolic (congestive) heart failure, Primary pulmonary hypertension, Pulmonary Hypertension. - Bed requested for Telemetry/MedSurg (observation). - Status is Observation. bb - Condition is Stable. - Problem is an acute exacerbation. - Symptoms have worsened. UTI on Admission? No Signatures: Dispatcher [employer] EDMS Swetha Todd, RN RN dw Joshua Chatman MD MD [facility] Yessi Lewis, DIRECTOR SMB SALES-C DIRECTOR SMB SALES-Csnw Aleisha Belcher, RN RN bb Aaron Wylie, RN RN bp Corrections: (The following items were deleted from the chart) 02/26 17:35 16:58 Reyna ordered. snw bp 18:37 18:21 Hospitalization Ordered by Brayden August DO for Observation. Preliminary dw diagnosis is Unspecified systolic (congestive) heart failure; Primary pulmonary hypertension; Pulmonary Hypertension. Bed requested for Telemetry/MedSurg (observation). Status is Observation. Condition is Stable. Problem is an acute exacerbation. Symptoms have worsened. UTI on Admission? No. snw 20:10 18:37 02/26/2019 18:21 Hospitalization Ordered by Brayden August DO for Observation. bb Preliminary diagnosis is Unspecified systolic (congestive) heart failure; Primary pulmonary hypertension; Pulmonary Hypertension. Bed requested for Telemetry/MedSurg (observation). Status is Observation. Condition is Stable. Problem is an acute exacerbation. Symptoms have worsened. UTI on Admission? No. dw
--- NOTE | 2019-02-26 18:48 | P.HP ---
Certification for Inpatient Patient admitted to: Observation With expected LOS: <2 Midnights Patient will require the following post-hospital care: None Practitioner: I am a practitioner with admitting privileges, knowledge of patient current condition, hospital course, and medical plan of care. Services: Services provided to patient in accordance with Admission requirements found in Title 42 Section 412.3 of the Code of Federal Regulations <Eusebio Ventura - Last Filed: 02/26/19 18:42> Patient History Date of Service: 02/26/19 Reason for admission: Shortness of breath History of Present Illness: This is a 74-year-old male patient presents to the emergency room with worsening of shortness of breath. Patient was recently seen and discharged on the 07 of February. Patient at that time was diagnosed with a continuation of pulmonary hypertension and diastolic heart failure. The patient's medicines were adjusted and was sent home to follow up. The patient over the last several days has had worsening of shortness of breath. The patient was worked up in the emergency room today and was found to have moderate bilateral pulmonary opacities cities in cardiomegaly suggested of worsening of congestive heart failure. Patient was diuresed and put on oxygen. Patient usually is on home oxygen. EMS when he was picked up today had a oxygen saturation reading of 76% on 4 leaders nasal cannula. Breathing treatment was administered and patient was put on a non-rebreather in the ED. Patient now feeling better. Complains of lower extremity edema as well but denies chest pain. Home medications list reviewed: Yes - Past Medical/Surgical History Diabetic: Yes -: COPD -: ARTHRITIS -: AFIB -: GI ULCERS -: GI BLEED -: R KNEE REPLACEMENT -: KIDNEY TRANSPLANT -: 40% STOMACH REMOVAL -: CARPAL TUNNEL REPAIR - Family History Father -: Heart disease, Hypertension, Diabetes Mother -: Hypertension, Stroke - Social History Smoking Status: Former smoker Alcohol use: No CD- Drugs: No Caffeine use: No <Eusebio Ventura - Last Filed: 02/26/19 18:42> Date of Service: 02/26/19 - Past Medical/Surgical History -: COPD -: Atrial fibrillation/chronic anti coalition therapy -: Moderate aortic stenosis -: Severe pulmonary hypertension -: Diastolic CHF Psychosocial/ Personal History: Patient lives at home - Social History Place of Residence: Home <Brayden August - Last Filed: 02/26/19 19:01> Allergies Penicillins Allergy (Verified 04/02/14 21:19) Itching/Hives/Rash aspirin Adverse Reaction (Verified 09/30/17 12:16) Rash warfarin Adverse Reaction (Verified 09/30/17 12:16) Rash Home Medications: Albuterol Sulfate [Proair Hfa] 90 mcg IH QID PRN 09/30/17 Apixaban [Eliquis] 5 mg PO BID 09/30/17 Carboxymethylcellulose Sodium [Refresh Liquigel] 1 drop EACH EYE BEDTIME Cyclosporine [Restasis] 1 drop EACH EYE BID 09/30/17 Diclofenac Sodium [Voltaren] 1 gm TP TID 09/30/17 Digoxin [Lanoxin*] 1 tab PO DAILY 09/30/17 Furosemide [Lasix] 40 mg PO BID 09/30/17 Hydrocodone Bit/Acetaminophen [Evans 7.5-325 Tablet] 3 tab PO DAILY PRN Insulin Aspart Protam & Aspart [Novolog Mix 70-30 Flexpen Syrn] 15 unit SQ DAILY AT SUPPER 09/30/17 Insulin Aspart Protam & Aspart [Novolog Mix 70-30 Flexpen Syrn] 25 unit SQ BREAKFAST 09/30/17 Labetalol HCl [Trandate] 200 mg PO BID 09/30/17 Mycophenolate Mofetil [Cellcept] 4 tab PO DAILY 09/30/17 Pantoprazole Sodium [Protonix] 40 mg PO BID 09/30/17 Potassium Chloride [Klor-Con 10] 10 meq PO DAILY 09/30/17 Prednisone [Daniel] 5 mg PO DAILY 09/30/17 Primidone [Mysoline] 50 mg PO TID 09/30/17 Rosuvastatin [Crestor*] 10 mg PO BEDTIME 09/30/17 Sucralfate [Carafate] 1 gm PO QID 09/30/17 Tacrolimus [Prograf] 3 mg PO Q12HR 09/30/17 allopurinoL [Allopurinol] 100 mg PO BID 09/30/17 Cholestyramine (with Sugar) [Cholestyramine Packet] 2 packet PO DAILY 02/04/19 Duloxetine [Cymbalta *] 30 mg PO DAILY 02/04/19 Ipratropium [place] 2 spray NS QID 02/04/19 Tafluprost/Pf [Zioptan 0.0015% Eye Drops] 1 gtt EACH EYE DAILY 02/04/19 Fluticasone/Umeclidin/Vilanter [Trelegy Ellipta 100-62.5-25] 1 each IH DAILY # 30 blst.w.dev 02/07/19 Review of Systems General: Unremarkable Eyes: Unremarkable ENT: Unremarkable Respiratory: Shortness of Breath, SOB with Excertion Cardiovascular: Orthopnea, Edema Gastrointestinal: Unremarkable Genitourinary: Unremarkable Musculoskeletal: Unremarkable Integumentary: Unremarkable Neurological: Unremarkable Lymphatics: Unremarkable <Eusebio Ventura - Last Filed: 02/26/19 18:42> Physical Examination - Vital Signs Temperature: 97.1 F Blood Pressure: 130/80 Pulse: 87 Respirations: 20 Pulse Ox (%): 100 (NRB) - Physical Exam General: Alert, In no apparent distress, Oriented x3 HEENT: Normocephalic, PERRLA, Mucous membr. moist/pink, EOMI Neck: Supple, JVD not distended, No Thyromegaly Respiratory: Crackles/rales Cardiovascular: Regular rate/rhythm, Edema, Systolic murmur Capillary refill: <2 Seconds Gastrointestinal: Normal bowel sounds, Soft and benign, Non-distended, No ascites, No tenderness, No masses, No rebound, No guarding Musculoskeletal: No contractures, No erythema, No tenderness, No warmth Integumentary: No rashes, No breakdown, No significant lesion, No tenderness/ swelling, No erythema, No warmth, No cyanosis Neurological: Normal gait, Normal speech, Normal strength at 5/5 x4 extr, Normal tone, Sensation intact, Cranial nerves 3-12 intact, Normal reflexes 2+, Normal affect Lymphatics: No axilla or inguinal lymphadenopathy - Studies Laboratory Data (last 24 hrs) 02/26/19 17:05: PT 13.6 H, INR 1.16 02/26/19 17:05: WBC 5.1, Hgb 9.6 L, Hct 33.3 L, Plt Count 140 L D 02/26/19 17:05: Sodium 142, Potassium 4.3, BUN 16, Creatinine 0.72, Glucose 130 H, Magnesium 1.7 L, Total Bilirubin 0.4, AST 9 L, ALT 13, Alkaline Phosphatase 70, Lipase 45 L <Eusebio Ventura - Last Filed: 02/26/19 18:42> - Studies Laboratory Data (last 24 hrs) 02/26/19 17:05: PT 13.6 H, INR 1.16 02/26/19 17:05: WBC 5.1, Hgb 9.6 L, Hct 33.3 L, Plt Count 140 L D 02/26/19 17:05: Sodium 142, Potassium 4.3, BUN 16, Creatinine 0.72, Glucose 130 H, Magnesium 1.7 L, Total Bilirubin 0.4, AST 9 L, ALT 13, Alkaline Phosphatase 70, Lipase 45 L <SabrinaeduardoAuroraBrayden - Last Filed: 02/26/19 19:01> Assessment and Plan - Problems (Diagnosis) (1) Acute respiratory distress Current Visit: No Status: Acute (2) CHF (congestive heart failure) Current Visit: No Status: Acute Qualifiers: Heart failure type: diastolic Heart failure chronicity: acute on chronic Qualified Code(s): I50.33 - Acute on chronic diastolic (congestive) heart failure (3) Pulmonary hypertension Current Visit: No Status: Chronic (4) Atrial fibrillation Current Visit: No Status: Chronic Qualifiers: Atrial fibrillation type: longstanding persistent Qualified Code(s): I48.11 - Longstanding persistent atrial fibrillation (5) Diabetes Current Visit: No Status: Chronic Qualifiers: Diabetes mellitus type: type 2 Diabetes mellitus chcf insulin use: without chcf use Diabetes mellitus complication status: without complication Qualified Code(s): E11.9 - Type 2 diabetes mellitus without complications (6) Hypertension Current Visit: No Status: Chronic Qualifiers: Hypertension type: essential hypertension Qualified Code(s): I10 - Essential (primary) hypertension (7) Status post kidney transplant Current Visit: No Status: Chronic - Plan Patient is in heart failure and as such will be diuresed for the next day or so. Cardiology and pulmonology has been consulted for the diastolic heart failure and pulmonary hypertension. Patient will be monitored closely. Patient will have labs trended and drawn in the morning. Patient will continue to be on a nasal cannula and respiratory status will be monitored closely. No pneumonia or signs of systemic infection at this time. Patient not requiring antibiotics. The goal is to diurese sufficiently for the next 24 hr and sent home for followup. Discharge Plan: Home Plan to discharge in: 24 Hours - Advance Directives Does patient have a Living Will: No Does patient have a Durable POA for Healthcare: No - Code Status/Comfort Care Code Status Assessed: No Critical Care: No Time Spent Managing Pts Care (In Minutes): 45 <Eusebio Ventura - Last Filed: 02/26/19 18:42> - Plan Impression: Shortness of breast secondary to acute on chronic diastolic CHF with severe pulmonary hypertension and aortic stenosis Atrial fibrillation on chronic anti coagulation therapy GERD Anemia of chronic disease History of kidney transplant on immunosuppressive therapy Plan: Patient will be admitted for further evaluation and observation. Will start IV diuresis. Will place on a 1500 cc per day fluid restriction and low-salt diet. Will be taught on CHF, pulmonary hypertension aortic stenosis. Will consult pulmonology and Cardiology for further recommendation. Anticipate discharge in the next 1-2 days. Will need to consider skilled placement if approved. Restart home medications. Restart immunosuppressive therapy medication. monitor hemoglobin. Time Spent Managing Pts Care (In Minutes): 55 <Brayden August - Last Filed: 02/26/19 19:01>
[2019-02-26] MEDS ORDERED: ONDANSETRON 4 MG/2 ML VIAL IV PRN (20:31)
[2019-02-26] MEDS ORDERED: GLUCAGON 1 MG/VIAL IM PRN (20:31)
[2019-02-26] MEDS ORDERED: MORPHINE 4 MG/ML SYR IV PRN (20:31)
[2019-02-26] MEDS ORDERED: ALBUTEROL 2.5 MG/3 ML NEB SOL NEB PRN (20:31)
[2019-02-26] MEDS ORDERED: IPRATROPIUM BROM 0.5MG/2.5ML NEB PRN (20:31)
[2019-02-26] MEDS ORDERED: D50W 25 GM/50 ML SYRINGE/VIAL IV PRN (20:31)
[2019-02-26 20:48] VITALS: BMI 33.3
[2019-02-26] MEDS: INSULIN -REGULAR HUMAN 50 UNIT/0.5 ML ML SQ SCH (21:00)
[2019-02-26] MEDS: LABETALOL HCL 100 MG TAB PO SCH (22:19)
[2019-02-26] MEDS: APIXABAN 2.5 MG TABLET PO SCH (22:20)
[2019-02-27 06:13] LABS: Absolute Lymphocytes (CBC) 0.6 K/uL (0.7-4.9); Basophils % 0.6 % (0-1.3); Hematocrit 34.3 % (39.6-49.0); MPV 9.6 fL (7.6-11.3); RBC Red Blood Cell Count 4.63 M/uL (4.33-5.43)
[2019-02-27 06:22] LABS: BUN Blood Urea Nitrogen 17 mg/dL (7-18); Bicarbonate 39 mmol/L (21-32); Glucose Level 117 mg/dL (74-106); NT PRO-BNP 2538 pg/mL (<450); Potassium 3.8 mmol/L (3.5-5.1); Sodium Level 144 mmol/L (136-145)
--- NOTE | 2019-02-27 06:44 | EKG ---
Test Date: 2019-02-26 Test Time: 17:20:17 Metal Box Maker: EMANUEL MEASUREMENT RESULTS: Intervals: Rate: 86 NV: QRSD: 148 QT: 380 QTc: 454 Oil Trough: P: NV: QRS: 5 T: 57 INTERPRETIVE STATEMENTS: Atrial fibrillation Right bundle branch block Abnormal ECG Compared to ECG 02/04/2019 10:43:52 No significant changes Electronically Signed On 02-27-19 06:43:30 COLLAR WORKER by Dov Michel
[2019-02-27] MEDS: INSULIN -REGULAR HUMAN 50 UNIT/0.5 ML ML SQ SCH ×4 (07:30→21:00)
[2019-02-27] MEDS: FUROSEMIDE 20 MG/ 2ML VIAL IV SCH ×2 (08:28→16:49)
[2019-02-27] MEDS: LABETALOL HCL 100 MG TAB PO SCH ×2 (08:28→21:49)
[2019-02-27] MEDS: APIXABAN 2.5 MG TABLET PO SCH (08:28)
[2019-02-27] MEDS: DULOXETINE 30 MG CAP PO SCH (08:28)
[2019-02-27] MEDS: PANTOPRAZOLE 40MG TABLET PO SCH ×2 (08:28→16:49)
[2019-02-27] MEDS: DIGOXIN 0.125 MG TABLET PO SCH (08:28)
[2019-02-27 08:47] LABS: Anisocytosis 1+; Blood Morphology Comment NOTED (NOT SEEN); Hypochromasia 1+; Platelet Estimate DECR; Polychromasia 1+; Urine White Blood Cell Casts OK
[2019-02-27] MEDS: HOME MED 1 EA UNK (Cyclosporine [Restasis] 1 DROP) EACH EYE SCH ×2 (09:00→21:00)
[2019-02-27] MEDS ORDERED: predniSONE 5 MG TAB PO SCH (09:00)
[2019-02-27] MEDS: HOME MED 1 EA UNK (Fluticasone/Umeclidin/Vilanter [Trelegy Ellipta 100-62.5-25] 1 EACH) IH SCH (09:00)
[2019-02-27] MEDS: TAFLUPROST EACH EYE SCH (09:00)
[2019-02-27] MEDS: APIXABAN 5 MG TABLET PO SCH ×2 (09:00→21:49)
[2019-02-27] MEDS: TACROLIMUS 1 MG PO SCH ×2 (09:00→21:49)
[2019-02-27] MEDS ORDERED: HOME MED 1 EA UNK (Labetalol Hcl [Trandate] 200 MG) PO SCH (09:00)
[2019-02-27] MEDS: MYCOPHENOLATE MOFETIL 500 MG PO SCH ×2 (09:00→21:48)
--- NOTE | 2019-02-27 09:36 | RAD REPORT ---
EXAM DESCRIPTION: RAD - Chest Pa And Lat (2 Views) - 02/27/2019 9:09 am CLINICAL HISTORY: Follow up CHF COMPARISON: Chest Single View dated 02/26/2019; Chest Pa And Lat (2 Views) dated 02/05/2019 TECHNIQUE: Frontal and lateral views of the chest were obtained. FINDINGS: The lungs are underinflated. Interstitial and alveolar opacities are present in both lung bases improved from comparison. There is overall better aeration and reduction in the interstitial ed christophe pattern. Cardiac silhouette has reduced in size. Decreased vascular engorgement. Pleural effusi ons are still present. Osteopenic and degenerative bony changes are present. Accentuated kyphosis not ed. No aortic abnormality. IMPRESSION: Significant but incomplete resolution of CHF/ volume overload findings. Small bilateral pleural effusions remain.
[2019-02-27] MEDS: CHOLESTYRAMINE/ASP 4 GM/PKT PO SCH (12:56)
[2019-02-27] MEDS ORDERED: predniSONE 20 MG TAB PO ONE (13:10)
--- NOTE | 2019-02-27 13:11 | P.CNS ---
Date of Consult: 02/27/19 Chief Complaint: Shortness of breath and profound weakness History of Present Illness: Patient is 74 years of age with a history of COPD admitted with acute profound weakness he is on chronic prednisone therapy has been taking it for the past 2 days denies any fever chills cough sputum hemoptysis or chest pain shortness of breath is at baseline patient compliant with treatment and is on diuretics and bronchodilators Allergies Penicillins Allergy (Verified 04/02/14 21:19) Itching/Hives/Rash aspirin Adverse Reaction (Verified 09/30/17 12:16) Rash warfarin Adverse Reaction (Verified 09/30/17 12:16) Rash Home Medications: Albuterol Sulfate [Proair Hfa] 2 puff IH QIDP PRN 09/30/17 Apixaban [Eliquis] 5 mg PO BID 09/30/17 Carboxymethylcellulose Sodium [Refresh Liquigel] 1 drop EACH EYE BEDTIME Cyclosporine [Restasis] 1 drop EACH EYE BID 09/30/17 Diclofenac Sodium [Voltaren] 1 gm TP TID 09/30/17 Digoxin [Lanoxin*] 1 tab PO DAILY 09/30/17 Furosemide [Lasix] 40 mg PO BID 09/30/17 Hydrocodone Bit/Acetaminophen [[place]ellow [place]et 7.5-325 Tablet] 3 tab PO DAILY PRN Insulin Aspart Protam & Aspart [Novolog Mix 70-30 Flexpen Syrn] 15 unit SQ DAILY AT SUPPER 09/30/17 Insulin Aspart Protam & Aspart [Novolog Mix 70-30 Flexpen Syrn] 25 unit SQ BREAKFAST 09/30/17 Labetalol HCl [Trandate] 200 mg PO BID 09/30/17 Mycophenolate Mofetil [Cellcept] 4 tab PO DAILY 09/30/17 Pantoprazole Sodium [Protonix] 40 mg PO BID 09/30/17 Potassium Chloride [Klor-Con 10] 10 meq PO DAILY 09/30/17 Prednisone [Daniel] 5 mg PO DAILY 09/30/17 Primidone [Mysoline] 50 mg PO TID 09/30/17 Rosuvastatin [Crestor*] 10 mg PO BEDTIME 09/30/17 Sucralfate [Carafate] 1 gm PO QID 09/30/17 Tacrolimus [Prograf] 3 mg PO Q12HR 09/30/17 allopurinoL [Allopurinol] 100 mg PO BID 09/30/17 Cholestyramine (with Sugar) [Cholestyramine Packet] 2 packet PO DAILY 02/04/19 Duloxetine [Cymbalta *] 30 mg PO DAILY 02/04/19 Ipratropium [place] 2 spray NS QID 02/04/19 Tafluprost/Pf [Zioptan 0.0015% Eye Drops] 1 gtt EACH EYE DAILY 02/04/19 Fluticasone/Umeclidin/Vilanter [Trelegy Ellipta 100-62.5-25] 1 each IH DAILY # 30 blst.w.dev 02/07/19 - Past Medical/Surgical History Diabetic: Yes -: COPD -: Diastolic CHF -: Atrial fibrillation/chronic anti coalition therapy -: SEvere Pulmonary Hypertension -: Moderate Aortic Stenosis -: Moderate aortic stenosis -: Severe pulmonary hypertension -: Diastolic CHF -: R KNEE REPLACEMENT -: KIDNEY TRANSPLANT -: 40% STOMACH REMOVAL -: CARPAL TUNNEL REPAIR -: Rt Hip Replacement Psychosocial/ Personal History: Patient lives at home - Family History Father Medical History: Heart disease, Hypertension, Diabetes Mother Medical History: Hypertension, Stroke - Social History Alcohol use: Yes CD- Drugs: No Caffeine use: Yes Place of Residence: Home Review of Systems 10-point ROS is otherwise unremarkable General: Weakness Respiratory: Shortness of Breath Cardiovascular: Edema Physical Examination Temp Pulse Resp BP Pulse Ox 97.1 F 91 H 20 124/71 94 02/27/19 12:00 02/27/19 12:00 02/27/19 12:00 02/27/19 12:00 02/27/19 12:00 General: Alert, Oriented x3 Neck: Supple Respiratory: Clear to auscultation bilaterally, Diminished Cardiovascular: No edema, Regular rate/rhythm Gastrointestinal: Normal bowel sounds, Soft and benign Laboratory Data (last 24 hrs) 02/26/19 17:05: PT 13.6 H, INR 1.16 02/26/19 17:05: WBC 5.1, Hgb 9.6 L, Hct 33.3 L, Plt Count 140 L D 02/26/19 17:05: Sodium 142, Potassium 4.3, BUN 16, Creatinine 0.72, Glucose 130 H, Magnesium 1.7 L, Total Bilirubin 0.4, AST 9 L, ALT 13, Alkaline Phosphatase 70, Lipase 45 L - Problems (1) Weakness Current Visit: Yes Status: Acute Plan: Patient is 74 years of age admitted with profound weakness he stop taking his prednisone I recommend resuming added 10 mg twice a day for at least a week and then 10 mg once a day (2) COPD (chronic obstructive pulmonary disease) Current Visit: Yes Status: Acute Plan: Patient has a COPD with aortic stenosis pulmonary hypertension which is mostly secondary chemistries unremarkable chest x-ray shows some interstitial changes patient is on immunosuppressants from his kidney transplant add a low-dose spironolactone patient has severe pulmonary hypertension treatment would be contraindicated as if this is secondary probably has diastolic dysfunction aortic stenosis patient has physical therapy at home uses 2-4 L of oxygen treatment comment discharge
[2019-02-27] MEDS: SPIRONOLACTONE 25 MG TABLET PO SCH (14:29)
--- NOTE | 2019-02-27 15:33 | CON ---
Date of Consultation: 02/27/[address] August on 02/26/2019. I saw the patient on 02/27/2019. Reason For Consultation: Congestive heart failure. History Of Present Illness: Mr. Lewis is a 74-year-old white male. He is known to us from previous office visits and hospital admission. He has a history of severe COPD. He is on home oxygen. He ford s severe pulmonary hypertension by recent echocardiogram in January 2019 with a normal ejection frac tion. Came in with shortness of breath. Chest x-ray showed possible congestive heart failure. He a lso has a history of chronic atrial fibrillation, on digoxin, labetalol, and Eliquis. He has diastol ic congestive heart failure that is chronic. He has dyslipidemia, history of ulcerative GI bleed. Allergies: HE IS ALLERGIC TO COUMADIN, PENICILLIN, AND NONSTEROIDAL ANTI-INFLAMMATORY AGENT. Review of Systems: Negative. Social History: Negative. Family History: Negative. Medications: At home include inhalers, Crestor, Eliquis, digoxin, Lasix, insulin, and labetalol. Physical Examination: General: He appeared to be in no acute distress, on oxygen he had adequate O2 saturation. He feels better than when he first came in. He has diuresed well on IV Lasix. Vital Signs: He was in atrial fibrillation, rate controlled at 90, afebrile. HEENT: Negative. Neck: Supple with no bruit, lymphadenopathy, JVD, or thyromegaly. Chest: Revealed poor airway movement, but no rales or wheezing. Cardiac: Revealed irregular rhythm and rate. No gallops or rubs. Had a tricuspid regurgitation mur mur. Abdomen: Benign. Extremities: Revealed 1+ edema. Diagnostic Data: His BNP was 2714. The rest of it was fairly normal. EKG showed AFib at 90. Echo in January 2019 showed normal EF with severe pulmonary hypertension. Impression And Plan: 1.It is difficult to say whether Mr. Lewis is having chronic obstructive pulmonary disease exacerbat ion or acute on chronic diastolic congestive heart failure. Nevertheless, he has been treated for javid th with intravenous Lasix, inhalers, and has improved. 2.His severe pulmonary hypertension is a concern. I am not so sure whether he is a candidate for __ or something of that nature. I will leave that up to Dr. Kitchen when he sees him. Josue arguelles consultation is pending. 3.Diabetes, well controlled. 4.Dyslipidemia, well controlled. 5.History of ulcerative gastrointestinal bleed that is inactive at this point. Patient continues to take Eliquis without any problems. We will continue to follow him. I agree with his present regime veronica GARCIA/TALIA Voice ID: [id number] Report ID: [id number]
--- NOTE | 2019-02-27 18:42 | P.PN ---
Subjective Date of Service: 02/27/19 Chief Complaint: Shortness of breath and profound weakness Subjective: Improving Physical Examination - Vital Signs Temperature: 97.1 F Blood Pressure: 149/73 Pulse: 90 Respirations: 20 Pulse Ox (%): 96 - Physical Exam General: Alert, In no apparent distress, Oriented x3 HEENT: Atraumatic Neck: Supple Respiratory: Other (Crackles to the bases but improved) Cardiovascular: Other (AFib rate controlled) Gastrointestinal: Normal bowel sounds, Soft and benign, Non-distended Integumentary: Tenderness/swelling (Swelling to the lower extremities improved) Neurological: Normal speech, Normal strength at 5/5 x4 extr, Normal tone - Studies Medications List Reviewed: Yes Assessment & Plan Discharge Plan: Home (Likely home tomorrow with is skilled facility placement as an outpatient) Plan to discharge in: 24 Hours Physician Review Additional Text: Impression: Shortness of breast secondary to acute on chronic diastolic CHF with severe pulmonary hypertension and aortic stenosis Atrial fibrillation on chronic anti coagulation therapy GERD Anemia of chronic disease History of kidney transplant on immunosuppressive therapy Plan: Continue diuresis. Teach on 1500 cc per day fluid restriction. Case discussed with pulmonology and Cardiology. Will continue current treatment at this time. Continue with immunosuppressive medications. Case discussed with social worker aide. Patient may qualify for skilled placement but this may have to be arranged as an outpatient. Possible discharge as early as tomorrow. Continue current medications at this time. Time Spent Managing Pts Care (In Minutes): 55
[2019-02-27] MEDS ORDERED: CARBOXYMETHYLCELLULOSE SODIUM EACH EYE SCH (21:00)
[2019-02-27] MEDS: predniSONE 10 MG TAB PO SCH (21:49)
[2019-02-28] MEDS: INSULIN -REGULAR HUMAN 50 UNIT/0.5 ML ML SQ SCH ×2 (07:30→11:30)
[2019-02-28] MEDS ORDERED: ALBUTEROL 2.5 MG/3 ML NEB SOL NEB PRN (08:00)
[2019-02-28] MEDS ORDERED: IPRATROPIUM BROM 0.5MG/2.5ML NEB PRN (08:00)
[2019-02-28] MEDS: MYCOPHENOLATE MOFETIL 500 MG PO SCH (08:46)
[2019-02-28] MEDS: TACROLIMUS 1 MG PO SCH (08:46)
[2019-02-28] MEDS: FUROSEMIDE 20 MG/ 2ML VIAL IV SCH (08:47)
[2019-02-28] MEDS: DULOXETINE 30 MG CAP PO SCH (08:48)
[2019-02-28] MEDS: PANTOPRAZOLE 40MG TABLET PO SCH (08:48)
[2019-02-28] MEDS: predniSONE 10 MG TAB PO SCH (08:48)
[2019-02-28] MEDS: LABETALOL HCL 100 MG TAB PO SCH (08:48)
[2019-02-28] MEDS: APIXABAN 5 MG TABLET PO SCH (08:48)
[2019-02-28] MEDS: DIGOXIN 0.125 MG TABLET PO SCH (08:49)
[2019-02-28] MEDS: HOME MED 1 EA UNK (Cyclosporine [Restasis] 1 DROP) EACH EYE SCH (08:49)
[2019-02-28] MEDS: SPIRONOLACTONE 25 MG TABLET PO SCH (08:49)
[2019-02-28] MEDS: TAFLUPROST EACH EYE SCH (08:50)
[2019-02-28] MEDS: HOME MED 1 EA UNK (Fluticasone/Umeclidin/Vilanter [Trelegy Ellipta 100-62.5-25] 1 EACH) IH SCH (08:50)
[2019-02-28 09:27] VITALS: O2SAT 95
--- NOTE | 2019-02-28 12:02 | P.DS ---
Admission Date: 02/26/19 Discharge Date: 02/28/19 Primary Care Provider: unknown; Cardiology-Dr. Wilkinson Disposition: DC HOME/HOME HEALTH CARE Discharge Condition: GOOD Reason for Admission: Shortness of breath and profound weakness Consultations: Cardiology-Dr. Michel Pulmonary-Dr. Kitchen Procedures: ECHO January 2019: Ejection fraction 60% LEFT VENTRICULAR WALL MOTION: NORMAL DOPPLER/COLOR FLOW: MODERATE AORTIC STENOSIS. PEAK MEAN GRADIENT 37/21. ESTIMATED AORTIC VALVE AREA 1.0 CENTIMETERS SQUARED. MILD MITRAL AND TRICUSPID REGURGITATION. SEVERE PULMONARY HYPERTENSION. ESTIMATED RIGHT VENTRICULAR SYSTOLIC PRESSURE 70 mmHg. ESTIMATED RIGHT ATRIAL PRESSURE 15 mmHg. COMMENTS: NORMAL LEFT VENTRICULAR EJECTION FRACTION. LEFT VENTRICULAR HYPERTROPHY. DILATED LEFT AND RIGHT ATRIUM. MODERATE AORTIC STENOSIS. MILD MITRAL AND TRICUSPID REGURGITATION. SEVERE PULMONARY HYPERTENSION. Follow up CXR: COMPARISON: Chest Single View dated 02/26/2019; Chest Pa And Lat (2 Views) dated 02/05/2019 TECHNIQUE: Frontal and lateral views of the chest were obtained. FINDINGS: The lungs are underinflated. Interstitial and alveolar opacities are present in both lung bases improved from comparison. There is overall better aeration and reduction in the interstitial edema pattern. Cardiac silhouette has reduced in size. Decreased vascular engorgement. Pleural effusions are still present. Osteopenic and degenerative bony changes are present. Accentuated kyphosis noted. No aortic abnormality. IMPRESSION: Significant but incomplete resolution of CHF/ volume overload findings. Small bilateral pleural effusions remain. Medical Problem List: Shortness of breast secondary to acute on chronic diastolic CHF with severe pulmonary hypertension and moderate aortic stenosis, ejection fraction 60% Chronic bilateral pleural effusions secondary to above COPD, oxygen and steroid dependent Atrial fibrillation on chronic anti coagulation therapy Diabetes mellitus type 2 insulin dependent Hypertension GERD Anemia of chronic disease with iron and B12 deficiency History of kidney transplant on immunosuppressive therapy and steroid dependent Hyperlipidemia Essential tremors Brief History of Present Illness: 74-year-old male with multiple medical problems including CHF, pulmonary hypertension, aortic stenosis, atrial fibrillation on chronic anti coagulation therapy, hypertension, diabetes and anemia of chronic disease. Patient was found the have shortness of breath. Patient is oxygen and steroid dependent. Patient was admitted for further observation and evaluation. Hospital Course: Patient presented with shortness of breath secondary to acute on chronic diastolic CHF. Recent echocardiogram shows ejection fraction 60% with severe pulmonary hypertension and moderate aortic stenosis. Initial chest x-ray showed pleural effusions. Patient is oxygen dependent. Patient required IV Lasix diuresis along with Aldactone. Patient had not been compliant with a fluid restriction. Patient also had been under a great deal of stress at home as he is also responsible in taking care of his who is debilitated. During the course of his stay he improved. Skilled placement was considered. Patient preferred to go home with home health and physical therapy. Education on CHF, aortic stenosis and pulmonary hypertension provided. Pulmonology and Cardiology were consulted. At discharge he is without significant shortness of breath. Patient on 3 L per nasal cannula. At discharge patient will continue with a 1500 cc per day fluid restriction and low-salt diet. He is to monitor his weight daily. If his weight increases by more than 5 lb he is to contact his PCP or coroner transport technician to further evaluate. At discharge he will continue with Lasix 40 mg 1 pill twice daily, potassium supplementation and Aldactone 25 mg 1 pill daily. Recommend to recheck lab-BMP to monitor his progress as further adjustment in medication may be required. Further adjustment can be done by cardiology. Recommend follow up with cardiology in 1-2 weeks to follow up this hospitalization. Recommend follow up with pulmonology in 1-2 weeks to further address. Pulmonology will consider pulmonary hypertension treatment in the future. Patient with chronic bilateral pleural effusion. This improved with diuresis. Recommend to recheck chest x-ray in 2-4 weeks to monitor resolution. Patient with end-stage COPD, oxygen and steroid dependent. Patient responded well to treatments. No evidence of infection noted. At discharge patient will continue with COPD medications Trelegy 1 puff daily, and Pro air 2 puffs 3 times a day as needed for shortness of breath. Patient will continue with oxygen to maintain sats above 93%. Patient will continue with prednisone 5 mg 1 pill twice daily for 5 days then he may continue with his maintenance dose of prednisone 5 mg daily. nd follow up with pulmonology in 1-2 weeks to follow up this hospitalization. Patient with atrial fibrillation on chronic anti coagulation therapy. This has remained stable. At discharge he will continue with his medications of labetalol 200 mg 1 pill twice daily, digoxin 0.125 mg daily, and Eliquis 5 mg 1 pill twice daily. Patient with diabetes mellitus type 2 insulin dependent. This has remained stable. At discharge he will continue with his current medication-insulin 70/ 30 25 units every morning and 15 units at night. Recommend to maintain blood sugars less 140 fasting and less than 200 after meals. Further adjustment can be done by his PCP Patient with hypertension. At discharge patient will continue with his medication labetalol 200 mg 1 pill twice daily. Patient with GERD. At discharge patient will continue the medication Protonix 40 mg 1 pill twice daily and Carafate 1 g with meals. Recommend follow up with GI in 2-4 weeks to monitor his progress. Patient with anemia of chronic disease with iron and B12 deficiency. At discharge he will continue with iron 1 pill twice daily and B12 1 pill daily. Recommend to recheck CBC, B12 and iron level in 2-4 weeks to monitors progress. Patient recently was hospitalized for rectal bleeding. No rectal bleeding noted at this time. Recommend follow up with GI to further evaluate. Patient with history of kidney transplant on immunosuppressive therapy and steroid dependent. This has remained stable. At discharge he will continue with his current medications-Cellcept 500 mg 4 pills daily, Prograf 1 mg 3 pills twice daily, allopurinol 100 mg 1 pill twice daily and prednisone 5 mg daily. Patient with essential tremors. At discharge he will continue with primidone 50 mg 3 times a day. Patient with hyperlipidemia. At discharge he will continue with Crestor 10 mg daily. Vital Signs/Physical Exam: Temp Pulse Resp BP Pulse Ox 97.2 F 85 20 150/83 H 91 02/28/19 04:00 02/28/19 04:00 02/28/19 04:00 02/28/19 04:00 02/28/19 04:00 General: Alert, In no apparent distress, Oriented x3, Cooperative HEENT: Atraumatic Neck: Supple Respiratory: Clear to auscultation bilaterally, Normal air movement Cardiovascular: Other (Atrial fibrillation rate controlled) Gastrointestinal: Normal bowel sounds, Soft and benign, Non-distended Integumentary: Tenderness/swelling (Edema to the lower extremity significantly improved.) Neurological: Normal speech, Normal strength at 5/5 x4 extr, Normal tone Laboratory Data at Discharge: WBC 4.6 K/uL (4.3-10.9) 02/27/19 05:36 Hgb 9.9 g/dL (13.6-17.9) L 02/27/19 05:36 Hct 34.3 % (39.6-49.0) L 02/27/19 05:36 Plt Count 120 K/uL (152-406) L 02/27/19 05:36 PT 13.6 SECONDS (9.5-12.5) H 02/26/19 17:05 INR 1.16 02/26/19 17:05 Sodium 144 mmol/L (136-145) 02/27/19 05:36 Potassium 3.8 mmol/L (3.5-5.1) 02/27/19 05:36 BUN 17 mg/dL (7-18) 02/27/19 05:36 Creatinine 0.75 mg/dL (0.55-1.3) 02/27/19 05:36 Glucose 117 mg/dL (74-106) H 02/27/19 05:36 Magnesium 1.7 mg/dL (1.8-2.4) L 02/26/19 17:05 Total Bilirubin 0.4 mg/dL (0.2-1.0) 02/26/19 17:05 AST 9 U/L (15-37) L 02/26/19 17:05 ALT 13 U/L (12-78) 02/26/19 17:05 Alkaline Phosphatase 70 U/L (45-117) 02/26/19 17:05 Lipase 45 U/L (73-393) L 02/26/19 17:05 Home Medications: Albuterol Sulfate [Proair Hfa] 2 puff IH QIDP PRN 09/30/17 Apixaban [Eliquis] 5 mg PO BID 09/30/17 Carboxymethylcellulose Sodium [Refresh Liquigel] 1 drop EACH EYE BEDTIME Cyclosporine [Restasis] 1 drop EACH EYE BID 09/30/17 Diclofenac Sodium [Voltaren] 1 gm TP TID 09/30/17 Digoxin [Lanoxin*] 1 tab PO DAILY 09/30/17 Furosemide [Lasix] 40 mg PO BID 09/30/17 Hydrocodone Bit/Acetaminophen [[place] 7.5-325 Tablet] 3 tab PO DAILY PRN Insulin Aspart Protam & Aspart [Novolog Mix 70-30 Flexpen Syrn] 15 unit SQ DAILY AT SUPPER 09/30/17 Insulin Aspart Protam & Aspart [Novolog Mix 70-30 Flexpen Syrn] 25 unit SQ BREAKFAST 09/30/17 Labetalol HCl [Trandate] 200 mg PO BID 09/30/17 Mycophenolate Mofetil [Cellcept] 4 tab PO DAILY 09/30/17 Pantoprazole Sodium [Protonix] 40 mg PO BID 09/30/17 Potassium Chloride [Klor-Con 10] 10 meq PO DAILY 09/30/17 Prednisone [Daniel] 5 mg PO DAILY 09/30/17 Primidone [Mysoline] 50 mg PO TID 09/30/17 Rosuvastatin [Crestor*] 10 mg PO BEDTIME 09/30/17 Sucralfate [Carafate] 1 gm PO QID 09/30/17 Tacrolimus [Prograf] 3 mg PO Q12HR 09/30/17 allopurinoL [Allopurinol] 100 mg PO BID 09/30/17 Cholestyramine (with Sugar) [Cholestyramine Packet] 2 packet PO DAILY 02/04/19 Duloxetine [Cymbalta *] 30 mg PO DAILY 02/04/19 Ipratropium [place] 2 spray NS QID 02/04/19 Tafluprost/Pf [Zioptan 0.0015% Eye Drops] 1 gtt EACH EYE DAILY 02/04/19 Fluticasone/Umeclidin/Vilanter [Trelegy Ellipta 100-62.5-25] 1 each IH DAILY # 30 blst.w.dev 02/07/19 Cyanocobalamin (Vitamin B-12) [Vitamin B-12] 1,000 mcg PO DAILY #90 tablet 02/28 Ferrous Sulfate [Iron] 325 mg PO BID #60 tablet 02/28/19 Spironolactone [Aldactone*] 25 mg PO DAILY #30 tab 02/28/19 predniSONE [Prednisone] 5 mg PO BID #10 tablet 02/28/19 New Medications: Cyanocobalamin (Vitamin B-12) [Vitamin B-12] 1,000 mcg PO DAILY #90 tablet Ferrous Sulfate [Iron] 325 mg PO BID #60 tablet predniSONE [Prednisone] 5 mg PO BID #10 tablet Spironolactone [Aldactone*] 25 mg PO DAILY #30 tab Patient Discharge Instructions: 1. Recommend follow up with PCP in 1 week to follow up this hospitalization. 2. Patient presented with shortness of breath secondary to acute on chronic diastolic CHF. Recent echocardiogram shows ejection fraction 60% with severe pulmonary hypertension and moderate aortic stenosis. Initial chest x-ray showed pleural effusions. Patient is oxygen dependent. Patient required IV Lasix diuresis along with Aldactone. Patient had not been compliant with a fluid restriction. Patient also had been under a great deal of stress at home as he is also responsible in taking care of his who is debilitated. During the course of his stay he improved. Skilled placement was considered. Patient preferred to go home with home health and physical therapy. Education on CHF, aortic stenosis and pulmonary hypertension provided. Pulmonology and Cardiology were consulted. At discharge he is without significant shortness of breath. Patient on 3 L per nasal cannula. At discharge patient will continue with a 1500 cc per day fluid restriction and low -salt diet. He is to monitor his weight daily. If his weight increases by more than 5 lb he is to contact his PCP or coroner transport technician to further evaluate. At discharge he will continue with Lasix 40 mg 1 pill twice daily, potassium supplementation and Aldactone 25 mg 1 pill daily. Recommend to recheck lab-BMP to monitor his progress as further adjustment in medication may be required. Further adjustment can be done by cardiology. Recommend follow up with cardiology in 1-2 weeks to follow up this hospitalization. Recommend follow up with pulmonology in 1-2 weeks to further address. Pulmonology will consider pulmonary hypertension treatment in the future. 3. Patient with chronic bilateral pleural effusion. This improved with diuresis. Recommend to recheck chest x-ray in 2-4 weeks to monitor resolution. 4. Patient with end-stage COPD , oxygen and steroid dependent. Patient responded well to treatments. No evidence of infection noted. At discharge patient will continue with COPD medications Trelegy 1 puff daily, and Pro air 2 puffs 3 times a day as needed for shortness of breath. Patient will continue with oxygen to maintain sats above 93%. Patient will continue with prednisone 5 mg 1 pill twice daily for 5 days then he may continue with his maintenance dose of prednisone 5 mg daily. nd follow up with pulmonology in 1-2 weeks to follow up this hospitalization. 5. Patient with atrial fibrillation on chronic anti coagulation therapy. This has remained stable. At discharge he will continue with his medications of labetalol 200 mg 1 pill twice daily, digoxin 0.125 mg daily, and Eliquis 5 mg 1 pill twice daily. 6. Patient with diabetes mellitus type 2 insulin dependent. This has remained stable. At discharge he will continue with his current medication-insulin 70/30 25 units every morning and 15 units at night. Recommend to maintain blood sugars less 140 fasting and less than 200 after meals. Further adjustment can be done by his PCP. 7. Patient with hypertension. At discharge patient will continue with his medication labetalol 200 mg 1 pill twice daily. 8. Patient with GERD. At discharge patient will continue the medication Protonix 40 mg 1 pill twice daily. Recommend follow up with GI in 2-4 weeks to monitor his progress. 9. Patient with anemia of chronic disease with iron and B12 deficiency. At discharge he will continue with iron 1 pill twice daily and B12 1 pill daily. Recommend to recheck CBC, B12 and iron level in 2-4 weeks to monitors progress. Patient recently was hospitalized for rectal bleeding. No rectal bleeding noted at this time. Recommend follow up with GI to further evaluate. 10. Patient with history of kidney transplant on immunosuppressive therapy and steroid dependent. This has remained stable. At discharge he will continue with his current medications- Cellcept 500 mg 4 pills daily, Prograf 1 mg 3 pills twice daily, allopurinol 100 mg 1 pill twice daily and prednisone 5 mg daily. 11. Patient with essential tremors. At discharge he will continue with primidone 50 mg 3 times a day. 12. Patient with hyperlipidemia. At discharge he will continue with Crestor 10 mg daily. Diet: ADA Activity: Fall precautions Time spent managing pt's care (in minutes): 55
[2019-02-28] MEDS: CHOLESTYRAMINE/ASP 4 GM/PKT PO SCH (12:26)
[2019-02-28 13:34] VITALS: BP 126/72; TEMP 97.9
== END 2019-02-28 14:28 | disposition home health service (06) ==
LOC: ER 15:38 → ERHOLD 18:24 → 2ND 20:01
PROVIDERS: ADMIT Family Medicine; ATTEND Family Medicine
DX: I50.33 Acute on chronic diastolic (congestive) heart failure (principal); I11.0 Hypertensive heart disease with heart failure; I27.20 Pulmonary hypertension, unspecified; I48.91 Unspecified atrial fibrillation; I35.0 Nonrheumatic aortic (valve) stenosis; E11.9 Type 2 diabetes mellitus without complications; J44.9 Chronic obstructive pulmonary disease, unspecified; K21.9 Gastro-esophageal reflux disease without esophagitis; Z79.52 Long term (current) use of systemic steroids; D64.9 Anemia, unspecified; E53.8 Deficiency of other specified B group vitamins; Z94.0 Kidney transplant status; Z79.01 Long term (current) use of anticoagulants; Z99.81 Dependence on supplemental oxygen; E78.5 Hyperlipidemia, unspecified; G25.0 Essential tremor
CPT/HCPCS: 93005; 87040 ×2; 85025 ×2; 80048 ×2; 36415; 86900; 83735; 86850; 85610; 86901; 82947 ×8; 80076; 85652; 84484; 83690; 84145; 83880 ×2; 86140; 71045; 71046; 97116; 97161; 97530; 94640; 96374; 99285; J1940 ×4; G0378 ×4; 81003; 81015; J7512

== ENCOUNTER 2019-03-18 22:27 | Emergency (ER) | payer OTHER ==
[2019-03-18] MEDS ORDERED: LIDOCAINE 1% MPF 30 ML VIAL ONE (22:41)
[2019-03-19] MEDS ORDERED: TETANUS & DIPHTHERIA TOX,ADULT 0.5 ML VIAL ONE (00:06)
[2019-03-19] MEDS ORDERED: CEPHALEXIN 250 MG CAP ONE (00:27)
--- NOTE | 2019-03-19 00:31 | ER ---
[facility] Name: Yunior Lewis Age: 74 yrs Sex: Male : 1945 Arrival Date: 03/18/2019 Time: 22:30 Bed 19 Private MD: Diagnosis: Laceration without foreign body of right forearm Presentation: 03/18 22:32 Presenting complaint: EMS states: Toned to [facility], pt had a fall with a large ea laceration to right forearm, denies LOC or hitting head. Reports he is on Eliquis. Lac dressed with pressure bandage per EMS. Care prior to arrival: pressure bandage to right forearm. Mechanism of Injury: Fall from standing position. Trauma event details: Injury occurred in the [facility], Injury occurred: [facility] Injury occurred: March 18, 2019. 22:32 Acuity: JAQUAN 3 ea 22:32 Method Of Arrival: EMS: [facility] ea 22:46 Transition of care: patient was not received from another setting of care. Onset of ea symptoms was March 18, 2019. Risk Assessment: Do you want to hurt yourself or someone else? Patient reports no desire to harm self or others. Initial Sepsis Screen: Does the patient meet any 2 criteria? No. Patient's initial sepsis screen is negative. Does the patient have a suspected source of infection? No. Patient's initial sepsis screen is negative. Trauma Activation: Alert Physician: ED Physician; Name: ; Notified At: ; Arrived At: Physician: General Surgeon; Name: ; Notified At: ; Arrived At: Physician: Radiology; Name: ; Notified At: ; Arrived At: Physician: Respiratory; Name: ; Notified At: ; Arrived At: Physician: Lab; Name: ; Notified At: ; Arrived At: Historical: - Allergies: 22:47 NSAIDS; ea 22:47 PENICILLINS; ea 22:47 Warfarin; ea - Immunization history:: Adult Immunizations up to date. - Social history:: Smoking status: Patient denies any tobacco usage or history of. - Immunization history: Last tetanus immunization: unknown. - Ebola Screening: : No symptoms or risks identified at this time. Screenin:42 Abuse screen: Denies threats or abuse. Nutritional screening: No deficits noted. ea Tuberculosis screening: No symptoms or risk factors identified. Fall Risk Fall in past 12 months (25 points). Primary Survey: 22:44 NO uncontrolled hemorrhage observed. Breathing/Chest: Respiratory pattern: regular, ea Respiratory effort: spontaneous. Circulation: Skin color: pink, Skin temperature: warm. Disability Alert. Exposure/Environment: All clothing and personal items were removed. Forensic evidence collection is not deemed to be indicated at this time. Items placed in patient belonging bag. There is evidence of uncontrolled external hemorrhage. Provider notified immediately. Methods to control bleeding applied. Obvious injury(ies) are noted at this time: Laceration to right forearm A warming method has been applied: A warm blanket has been provided to the patient. 03/19 00:30 Reassessment Breathing/Chest Respiratory pattern Regular Respiratory effort Spontaneous ea Unlabored. Secondary Survey: 03/18 22:45 Musculoskeletal: Circulation, motion, and sensation intact. Injury Description: ea Laceration sustained to dorsal aspect of right forearm. Assessment: 22:43 General: Appears in no apparent distress. Behavior is calm, cooperative, appropriate ea for age. Pain: Complains of pain in dorsal aspect of right forearm. Neuro: Level of Consciousness is awake, alert, obeys commands, Oriented to person, place, time, situation. Cardiovascular: Patient's skin is warm and dry. Respiratory: Airway is patent Respiratory effort is even, unlabored, Respiratory pattern is regular, symmetrical. Derm: Skin is pink, warm \T\ dry. Injury Description: Laceration sustained to dorsal aspect of right forearm is jagged, 2.6 to 7.5 cm long, was sustained less than 30 minutes ago. a small amount of bleeding noted at this time. 03/19 00:30 Reassessment: Patient and/or family updated on plan of care and expected duration. Pain ea level reassessed. Patient is alert, oriented x 3, equal unlabored respirations, skin warm/dry/pink. Pt reports family is unavailable to pick him up at this time. Attempted to call [facility], hr receptionist reports there is no transportation until 8 AM. 01:36 Reassessment: Patient and/or family updated on plan of care and expected duration. Pain ea level reassessed. Pt resting with eyes closed respirations even and unlabored. No s/s of pain or discomfort noted at this time. 02:40 Reassessment: No changes from previously documented assessment. ea 03:50 Reassessment: Patient and/or family updated on plan of care and expected duration. Pain ea level reassessed. Pt resting with eyes closed, respirations even and unlabored. Chest expansions even and symmetrical. 03:52 Reassessment: Attempted to call daughter Amelie Lewis at [phone], unable to leave ea message, mail box full. Awaiting for call back or available transportation at [facility]. 04:43 Reassessment: Patient and/or family updated on plan of care and expected duration. Pain ea level reassessed. Pt resting with eyes closed, respirations even and unlabored. Chest expansions even and symmetrical. No s/s of pain or discomfort noted at this time. Awaiting oncology rn back from family. 05:13 Reassessment: Spoke to daughter over the phone, daughter reports she will be here in 45 ea minutes. 06:25 Reassessment: Patient and/or family updated on plan of care and expected duration. Pain ea level reassessed. Pt resting with eyes closed, respirations even and unlabored. Chest expansions even and symmetrical. Daughter at bedside reports she will stay with father until transportation arrives, reports she is unable to transport father due to height of her vehicle, but will wait until [facility] transportation is available. 07:08 Reassessment: Patient and/or family updated on plan of care and expected duration. Pain ea level reassessed. Patient is alert, oriented x 3, equal unlabored respirations, skin warm/dry/pink. Discharge instruction given to family, verbalized the understanding of instruction. Pt left ED via wheelchair accompanied by family. Pt tolerating well. Vital Signs: 03/18 22:30 BP 130 / 77; Pulse 79; Resp 20; Temp 98.1; Pulse Ox 98% on 3 lpm NC; Weight 81.65 kg; ea Height 6 ft. (182.88 cm); Pain /10; 03/19 00:40 BP 126 / 70; Pulse 70; Resp 18; Pulse Ox 99% ; ea 01:26 BP 124 / 74; Pulse 68; Resp 18; Pulse Ox 98% on 3 lpm NC; ea 02:40 BP 107 / 76; Pulse 95; Resp 18; Pulse Ox 97% on 3 lpm NC; ea 03:52 BP 112 / 69; Pulse 80; Resp 20; Pulse Ox 95% ; ea 04:50 BP 126 / 78; Pulse 94; Resp 20; Pulse Ox 99% ; ea 06:27 BP 130 / 83; Pulse 78; Resp 18; Pulse Ox 99% on 3 lpm NC; ea 03/18 22:30 Body Mass Index 24.41 (81.65 kg, 182.88 cm) ea [place] Coma Score: 03/18 22:30 Eye Response: spontaneous(4). Verbal Response: oriented(5). Motor Response: obeys ea commands(6). Total: 15. Trauma Score (Adult): 22:30 Eye Response: spontaneous(1); Verbal Response: oriented(1); Motor Response: obeys ea commands(2); Systolic BP: > 89 mm Hg(4); Respiratory Rate: 10 to 29 per min(4); [place] Score: 15; Trauma Score: 12 ED Course: 22:30 Patient arrived in ED. ea 22:30 Oxygen administration via nasal cannula \T\ 3L/min. ea 22:32 Josesito Natarajan [facility]NP-C [facility] la1 22:32 Norris Carey MD is Attending Physician. la1 22:42 Triage completed. ea 22:42 Thermoregulation: warm blanket given to patient. ea 22:42 Arm band placed on right wrist. Patient placed in an exam room, on a stretcher, on ea oxygen, on pulse oximetry. 22:44 Patient has correct armband on for positive identification. Bed in low position. Call ea light in reach. Side rails up X2. 22:56 Forearm Right XRAY In Process Unspecified. EDMS 23:51 Jennifer Monique, RN is Primary Nurse. ea 03/19 01:02 No provider procedures requiring assistance completed. Patient did not have IV access ea during this emergency room visit. Administered Medications: 00:07 Drug: Tetanus-Diphtheria Toxoid Adult 0.5 ml {[employer]: [employer]. Exp: ea 03/12/2021. Lot #: [id number]. } Route: IM; Site: left deltoid; 00:30 Follow up: Response: No adverse reaction ea 00:30 Drug: KeFLEX 500 mg Route: PO; ea 01:13 Follow up: Response: No adverse reaction ea Intake: 01:03 PO: 100ml (Water); Total: 100ml. ea Outcome: 00:30 Discharge ordered by . la1 01:03 Discharge instructions given to patient, Instructed on discharge instructions, follow ea up and referral plans. medication usage, Demonstrated understanding of instructions, follow-up care, medications, Prescriptions given X 1. 03:54 Patient's length of stay in the Emergency Department was greater than 2 hours. Awaiting ea on transportation back to [facility] Patient's length of stay extended due to 07:07 Discharged to home via wheelchair, with family. ea 07:07 Condition: stable 07:09 Patient left the ED. ea Signatures: Dispatcher [employer] EDTN Josesito Natarajan, [place]-C DOCUMENTATION BILLING CLERK-[id number] Jennifer Monique RN RN ea Corrections: (The following items were deleted from the chart) 03/18 22:43 22:30 BP 130 / 77; Pulse 79bpm; Resp 20bpm; Pulse Ox 98%; Temp 98.1F; 81.65 kg; Height ea 6 ft.; BMI: 24.4; Pain 5/10; ea 03/19 06:29 01:26 BP 124 / 74; Pulse 68bpm; Resp 18bpm; Pulse Ox 98% RA; ea ea 06:29 02:40 BP 107 / 76; Pulse 95bpm; Resp 18bpm; Pulse Ox 97% RA; ea ea
--- NOTE | 2019-03-19 00:32 | EDPHYS ---
Physician Documentation [facility] Name: Yunior Lewis Age: 74 yrs Sex: Male : 1945 Arrival Date: 03/18/2019 Time: 22:30 Bed 19 Private MD: ED Physician Norris Carey HPI: 03/18 22:38 This 74 yrs old Male presents to ER via Unassigned with complaints of Fall la1 Injury. 22:38 Details of fall: The patient fell from an upright position, while walking. Onset: The la1 symptoms/episode began/occurred just prior to arrival. Associated injuries: The patient sustained dorsal aspect of right forearm, laceration, 7 cm(s). Severity of symptoms: At their worst the symptoms were moderate. The patient has not experienced similar symptoms in the past. PT was at [employer] in and got tangled in the 02 tubing and tripped. Large laceration to right forearm. Historical: - Allergies: 22:47 NSAIDS; ea 22:47 PENICILLINS; ea 22:47 Warfarin; ea - Immunization history:: Adult Immunizations up to date. - Social history:: Smoking status: Patient denies any tobacco usage or history of. - Immunization history: Last tetanus immunization: unknown. - Ebola Screening: : No symptoms or risks identified at this time. ROS: 22:40 Constitutional: Negative for fever, chills, and weight loss, Eyes: Negative for injury, la1 pain, redness, and discharge, ENT: Negative for injury, pain, and discharge, Neck: Negative for injury, pain, and swelling, Cardiovascular: Negative for chest pain, palpitations, and edema, Respiratory: Negative for shortness of breath, cough, wheezing, and pleuritic chest pain, Abdomen/GI: Negative for abdominal pain, nausea, vomiting, diarrhea, and constipation, Back: Negative for injury and pain, MS/Extremity: Negative for injury and deformity. 22:40 Skin: Positive for laceration(s), of the dorsal aspect of right forearm, multiple skin tears to right upper extremity. Exam: 22:41 Constitutional: This is a well developed, well nourished patient who is awake, alert, la1 and in no acute distress. Head/Face: Normocephalic, atraumatic. Eyes: Periorbital areas with no swelling, redness, or edema. ENT: Mucous membranes moist. Neck: Trachea midline, No Meningismus. Chest/axilla: Normal chest wall appearance and motion. Nontender with no deformity. No lesions are appreciated. Cardiovascular: Regular rate and rhythm with a normal S1 and S2. No gallops, murmurs, or rubs. Normal PMI, no JVD. No pulse deficits. Respiratory: Lungs have equal breath sounds bilaterally, clear to auscultation No rales, rhonchi or wheezes noted. No increased work of breathing, no retractions or nasal flaring. Abdomen/GI: Soft, non-tender, with normal bowel sounds. Back: No spinal tenderness. No costovertebral tenderness. Full range of motion. 22:41 Skin: injury, laceration(s), the wound is approximately 10 cm(s), with a depth of 2 cm(s), of the dorsal aspect of right forearm, that can be described as jagged, without bleeding. Vital Signs: 22:30 BP 130 / 77; Pulse 79; Resp 20; Temp 98.1; Pulse Ox 98% on 3 lpm NC; Weight 81.65 kg; ea Height 6 ft. (182.88 cm); Pain 5/10; 03/19 00:40 BP 126 / 70; Pulse 70; Resp 18; Pulse Ox 99% ; ea 01:26 BP 124 / 74; Pulse 68; Resp 18; Pulse Ox 98% on 3 lpm NC; ea 02:40 BP 107 / 76; Pulse 95; Resp 18; Pulse Ox 97% on 3 lpm NC; ea 03:52 BP 112 / 69; Pulse 80; Resp 20; Pulse Ox 95% ; ea 04:50 BP 126 / 78; Pulse 94; Resp 20; Pulse Ox 99% ; ea 06:27 BP 130 / 83; Pulse 78; Resp 18; Pulse Ox 99% on 3 lpm NC; ea 03/18 22:30 Body Mass Index 24.41 (81.65 kg, 182.88 cm) ea Skip Coma Score: 03/18 22:30 Eye Response: spontaneous(4). Verbal Response: oriented(5). Motor Response: obeys ea commands(6). Total: 15. Trauma Score (Adult): 22:30 Eye Response: spontaneous(1); Verbal Response: oriented(1); Motor Response: obeys ea commands(2); Systolic BP: > 89 mm Hg(4); Respiratory Rate: 10 to 29 per min(4); Skip Score: 15; Trauma Score: 12 Laceration: 03/19 00:25 Wound Repair of 10cm ( 3.9in ) subcutaneous laceration to dorsal aspect of right la1 forearm. Irregularly shaped.. Skin/tissue flap noted.. Hemostasis noted.. Distal neuro/vascular/tendon intact. Anesthesia: Local anesthetic administered with 10 mls of 1% lidocaine. Wound prep: Extensive cleansing with betadine with hibiclenz by me, Wound margin revised moderately, Wound explored extensively, Copious irrigation. Skin closed with 4 4-0 chromic gut using simple sutures and sterile technique. Skin closed with 5 4-0 Prolene using simple sutures and sterile technique. Skin closed with 4-0 Prolene using horizontal mattress sutures and sterile technique. Dressed with non-adherent dressing. Patient tolerated well. MDM: 03/18 22:32 Patient medically screened. la1 03/19 00:27 Differential diagnosis: laceration. Data reviewed: vital signs, nurses notes, la1 radiologic studies, I have discussed the patient's presentation/case with the attending Emergency Department Physician; and as a result, I will discharge patient. Data interpreted: Pulse oximetry: on room air is 98 %. Interpretation: normal. Test interpretation: by ED physician or midlevel provider: plain radiologic studies. Counseling: I had a detailed discussion with the patient and/or guardian regarding: the historical points, exam findings, and any diagnostic results supporting the discharge/admit diagnosis, the need for outpatient follow up, a family practitioner, to return to the emergency department if symptoms worsen or persist or if there are any questions or concerns that arise at home. Special discussion: I discussed in detail with the patient the higher chance of wound infection based on his presenting history. ED course: Wound deep and very irregular, approximated as best as possible given wound. Pt informed of risk for infection and attempt for best cosmesis as possible. Pt allergic to PCN but states his reaction was that he just didn't feel right. Will place pt on keflex and have FU with his PCP in 7-10 days. Strict return precautions given.. 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 Exp: ea 03/12/2021. Lot #: [id number]. } Route: IM; Site: left deltoid; 00:30 Follow up: Response: No adverse reaction ea 00:30 Drug: KeFLEX 500 mg Route: PO; ea 01:13 Follow up: Response: No adverse reaction ea Disposition: 08:08 Co-signature as Attending Physician, Norris Carey MD I agree with the assessment and tw4 plan of care. Disposition: 03/19/19 00:30 Discharged to Home. Impression: Laceration without foreign body of right forearm. - Condition is Stable. - Discharge Instructions: Laceration Care, Adult, Skin Tear Care, Sutured Wound Care, Mgmd-fr-Yheg. - Prescriptions for Keflex 500 mg Oral Capsule - take 1 capsule by ORAL route every 6 hours for 10 days; 40 capsule. - Medication Reconciliation Form, Thank You Letter, Antibiotic Education form. - Follow up: Private Physician; When: 7 - 10 days; Reason: Recheck today's complaints, Re-evaluation by your physician. - Problem is new. - Symptoms have improved. Signatures: Dispatcher [employer] EDMS Josesito Natarajan, SUPERVISOR METAL CANS-C SUPERVISOR MET[employer] CANS-Cla1 Jennifer Monique RN RN Norris Kirk MD MD tw4 Corrections: (The following items were deleted from the chart) 00:25 03/18 22:41 Skin: injury, laceration(s), the wound is approximately 7 cm(s), with a la1 depth of 2 cm(s), of the dorsal aspect of right forearm, that can be described as jagged, without bleeding, la1 03/19 07:09 00:30 03/19/2019 00:30 Discharged to Home. Impression: Laceration without foreign body ea of right forearm. Condition is Stable. Forms are Medication Reconciliation Form, Thank You Letter, Antibiotic Education, Prescription Opioid Use. Follow up: Private Physician; When: 7 - 10 days; Reason: Recheck today's complaints, Re-evaluation by your physician. Problem is new. Symptoms have improved. la1
[2019-03-19 07:15] VITALS: TEMP 98.1
[2019-03-19 07:21] VITALS: O2SAT 99
[2019-03-19 07:22] VITALS: BP 130/83
--- NOTE | 2019-03-19 07:49 | RAD REPORT ---
EXAM DESCRIPTION: RAD - Forearm Right - 03/18/2019 10:56 pm CLINICAL HISTORY: PAIN, fall, laceration COMPARISON: No comparisons FINDINGS: No fracture is identified. There is no dislocation or periosteal reaction noted. Large soft tissue wound is present posterior surface of the forearm. No retained foreign body. IMPRESSION: Soft tissue wound without foreign body. No acute bone abnormality
== END 2019-03-19 07:09 | disposition home or self-care (01) ==
LOC: ER 22:27
PROC: 0JQG0ZZ Repair Right Lower Arm Subcutaneous Tissue and Fascia, Open Approach (ICD-10-PCS; principal; 2019-03-19)
DX: S51.811A Laceration without foreign body of right forearm, initial encounter (principal); W01.0XXA Fall on same level from slipping, tripping and stumbling without subsequent striking against object, initial encounter; Y93.89 Activity, other specified; Y92.099 Unspecified place in other non-institutional residence as the place of occurrence of the external cause; Z23 Encounter for immunization; Z88.0 Allergy status to penicillin; Z88.6 Allergy status to analgesic agent; Z88.8 Allergy status to other drugs, medicaments and biological substances
CPT/HCPCS: 90471; 90714; 99284

== ENCOUNTER 2019-03-19 12:38 | Inpatient (IN) | payer OTHER ==
[2019-03-19 13:12] LABS: Absolute Lymphocytes (CBC) 0.4 K/uL (0.7-4.9); Basophils % 0.7 % (0-1.3); Lymphocytes % 5.8 % (15.3-44.8); MPV 8.9 fL (7.6-11.3); RBC Red Blood Cell Count 4.66 M/uL (4.33-5.43)
--- NOTE | 2019-03-19 13:21 | RAD REPORT ---
EXAM DESCRIPTION: CT - Head Brain Wo Cont - 03/19/2019 1:10 pm CLINICAL HISTORY: Fall, head injury COMPARISON: None. TECHNIQUE: Axial 5 mm thick images of the head were obtained without IV contrast. All CT scans are performed using dose optimization technique as appropriate and may include automated exposure control or mA/KV adjustment according to patient size. FINDINGS: No intracranial hemorrhage, mass, edema or shift of mid-line structures. No acute infarcti on changes seen. No abnormal extra-axial fluid collections. Chronic ischemic changes mild for age. Pa tient has mild to moderate volume loss. Ventricles are in proportion. Dense arterial tree calcificati ons are present. Mastoid air cells and visualized portions of the paranasal sinuses are clear. No acute bony findings. IMPRESSION: Atrophy and chronic ischemic changes are present. No acute intracranial finding.
[2019-03-19 13:29] LABS: BUN Blood Urea Nitrogen 12 mg/dL (7-18); Bicarbonate 38 mmol/L (21-32); Glucose Level 111 mg/dL (74-106); NT PRO-BNP 2675 pg/mL (<450); Sodium Level 141 mmol/L (136-145); Troponin (Emerg Dept Use Only) < 0.02 ng/mL (0.0-0.045)
[2019-03-19 13:39] LABS: Anisocytosis 2+; Blood Morphology Comment NOTED (NOT SEEN); Hypochromasia 1+; Platelet Estimate ADEQ; Urine White Blood Cell Casts OK
--- NOTE | 2019-03-19 13:50 | EDPHYS ---
Physician Documentation [facility] Name: Yunior Lewis Age: 74 yrs Sex: Male : 1945 Arrival Date: 03/19/2019 Time: 12:41 Bed 6 Private MD: ED Physician Conrado Stallings HPI: 03/19 12:50 This 74 yrs old Male presents to ER via EMS with complaints of General rn Weakness. 12:50 Reports generalized weakness, slowly worsening over last 6 weeks or so, fell this rn morning or last night, lives at assisted living and family feels like can't live on his own. Denies fever. Reports tripped over long O2 tubing and hit head. . Onset: The symptoms/episode began/occurred at an unknown time. Severity of symptoms: At their worst the symptoms were moderate in the emergency department the symptoms are unchanged. The patient has experienced similar episodes in the past. The patient has been recently seen by a physician:. Historical: - Allergies: 12:42 NSAIDS; hb 12:42 PENICILLINS; hb 12:42 Warfarin; hb - Home Meds: 13:00 labetalol 200 mg Oral tab 1 tab 2 times per day [Active]; allopurinol 100 mg Oral tab 1 tw2 tab 2 times per day [Active]; hydrocodone-acetaminophen 7.5-325 mg Oral tab 1 tab every 4 hours [Active]; rosuvastatin 10 mg oral tab 1 tab once daily [Active]; Klor-Con 10 10 mEq Oral TbER 2 tabs once daily [Active]; primidone 50 mg oral tab 1 tabs 3 times per day [Active]; Breo Ellipta 100-25 mcg/dose inhalation dsdv 1 puff once daily [Active]; Ventolin Rotahaler/Rotacaps 90 mcg Inhl [Active]; Novolin 70/30 Innolet Sub-Q [Active]; Voltaren Oral [Active]; duloxetine 30 mg oral cpDR 1 cap once daily [Active]; Restasis 0.05 % ophthalmic dpet 1 drop 2 times per day [Active]; Zioptan (PF) 0.0015 % ophthalmic dpet 1 drop once daily [Active]; ipratropium bromide 0.02 % inhalation soln [Active]; tacrolimus 1 mg oral cap every 12 hours [Active]; mycophenolate mofetil 500 mg oral tab 2 tabs 2 times per day [Active]; prednisone 5 mg Oral tab once daily [Active]; pantoprazole 40 mg oral TbEC 1 tab once daily [Active]; sucralfate 1 gram Oral tab 1 tab 4 times per day [Active]; cholestyramine (bulk) miscellaneous powd [Active]; furosemide 40 mg Oral tab 1 tab 2 times per day [Active]; Eliquis 5 mg oral tab 1 tab 2 times per day [Active]; digoxin 125 mcg Oral tab 1 tab once daily [Active]; - PMHx: 12:42 COPD; hb 13:00 Hyperlipidemia; Hypertension; Diabetes - IDDM; Sleep Apnea; gastritis; tw2 - PSHx: 13:00 kidney transplant; tw2 - Immunization history:: Adult Immunizations up to date. - Social history:: Smoking status: Patient denies any tobacco usage or history of. - Ebola Screening: : Patient denies travel to an Ebola-affected area in the 21 days before illness onset. - Family history:: not pertinent. - Hospitalizations: : No recent hospitalization is reported. ROS: 12:50 Constitutional: Negative for fever, chills, and weight loss, Eyes: Negative for injury, rn pain, redness, and discharge, Neck: Negative for injury, pain, and swelling, Cardiovascular: Negative for chest pain, palpitations, and edema, Respiratory: Negative for pleuritic chest pain, Abdomen/GI: Negative for abdominal pain, nausea, vomiting, diarrhea, and constipation, MS/Extremity: + right knee pain Skin: + skin tear RUE that occured last week Neuro: Negative for headache, numbness, tingling, and seizure. Exam: 12:50 Constitutional: No acute distress, awake and alert Head/Face: Normocephalic, rn atraumatic. ENT: dry MM Neck: Trachea midline, no thyromegaly or masses palpated, and no cervical lymphadenopathy. Supple, full range of motion without nuchal rigidity, or vertebral point tenderness. No Meningismus. Cardiovascular: Irregular rhythm, regular rate. No pulse deficits. Respiratory: Faint exp wheezing, no retractions, speaking full sentences Abdomen/GI: soft, non-tender MS/ Extremity: Pulses equal, no cyanosis. Painful ROM and tenderness with ecchymosis right knee. Neuro: Awake and alert, GCS 15, oriented to person, place, time, and situation. Motor strength 4/5 in all extremities. Sensory grossly intact. Cerebellar exam normal. Vital Signs: 12:46 BP 137 / 82; Pulse 89; Resp 24; Temp 97.9(O); Pulse Ox 95% on 2 lpm NC; Weight 99.79 kg tw2 (R); Height 5 ft. 11 in. (180.34 cm); Pain 2/10; 13:30 BP 138 / 78; Pulse 89; Resp 22; Pulse Ox 96% on 2 lpm NC; hb 14:00 BP 132 / 80; Pulse 88; Resp 21; Pulse Ox 100% on Nebulizer Mask; Pain 2/10; hb 12:46 Body Mass Index 30.68 (99.79 kg, 180.34 cm) tw2 MDM: 12:43 Patient medically screened. rn 13:40 ED course: Pt with worse breathing, tachypnea and heavy breathing, oxygen down to 86% rn even on oxygen, will admit for failure to thrive, dehydration, weakness, COPD exacerbation. . 13:47 Differential Diagnosis dehydration, COPD exacerbation, CHF exacerbation, failure to rn thrive. Data reviewed: vital signs, nurses notes, lab test result(s), radiologic studies, CT scan, and as a result, I will admit patient. Counseling: I had a detailed discussion with the patient and/or guardian regarding: the historical points, exam findings, and any diagnostic results supporting the discharge/admit diagnosis, lab results, radiology results, the need for further work-up and treatment in the hospital. Response to treatment: the patient's symptoms have mildly improved after treatment. 13:49 Admission orders: after a detailed discussion of the patient's condition and case, the licensed journeyman electrician orders are written by me. 03/19 12:44 Order name: CBC with Diff; Complete Time: 13:44 rn 03/19 12:44 Order name: Basic Metabolic Panel; Complete Time: 13:44 rn 03/19 12:44 Order name: Urine Microscopic Only rn 03/19 12:44 Order name: N-Terminal Pro-brain Natriuretic Peptide; Complete Time: 13:44 rn 03/19 12:44 Order name: Troponin (emerg Dept Use Only); Complete Time: 13:44 rn 03/19 13:39 Order name: CBC Smear Scan; Complete Time: 13:44 EDMS 03/19 12:44 Order name: XRAY Knee RIGHT 3 view; Complete Time: 14:26 rn 03/19 12:44 Order name: IV Start; Complete Time: 13:07 rn 03/19 12:44 Order name: EKG; Complete Time: 12:44 rn 03/19 12:44 Order name: XRAY Chest (1 view); Complete Time: 14:26 rn 03/19 12:44 Order name: CT Head Brain wo Cont; Complete Time: 13:25 rn 03/19 14:06 Order name: ABG Arterial Blood Gas [facility] 03/19 12:44 Order name: EKG - Nurse/Tech; Complete Time: 13:07 rn Administered Medications: 14:00 Drug: SOLU-Medrol 125 mg Route: IVP; Site: right antecubital; hb 14:15 Follow up: Response: No adverse reaction hb 14:00 Drug: Xopenex (3) 1.25 mg Route: Inhalation; hb Disposition: 03/19/19 13:50 Hospitalization ordered by Derrick Guzman for Inpatient Admission. Preliminary diagnosis are Chronic obstructive pulmonary disease with (acute) exacerbation, Pulmonary edema, Dyspnea, unspecified, Weakness, Dehydration. - Bed requested for Telemetry/MedSurg (Inpatient). - Status is Inpatient Admission. hb - Condition is Fair. - Problem is an ongoing problem. - Symptoms have improved. UTI on Admission? No Signatures: Dispatcher [employer] [facility] Octaviano Tinoco RN RN sg Conrado Stallings MD MD rn Baxter, Heather, RN RN Caro Padron RN RN tw2 Corrections: (The following items were deleted from the chart) 14: 13:50 Hospitalization Ordered by Derrick Guzman MD for Inpatient Admission. Preliminary sg diagnosis is Chronic obstructive pulmonary disease with (acute) exacerbation; Pulmonary edema; Dyspnea, unspecified; Weakness; Dehydration. Bed requested for Telemetry/MedSurg (Inpatient). Status is Inpatient Admission. Condition is Fair. Problem is an ongoing problem. Symptoms have improved. UTI on Admission? No. rn 15:15 14:22 03/19/2019 13:50 Hospitalization Ordered by Derrick Guzman MD for Inpatient hb Admission. Preliminary diagnosis is Chronic obstructive pulmonary disease with (acute) exacerbation; Pulmonary edema; Dyspnea, unspecified; Weakness; Dehydration. Bed requested for Telemetry/MedSurg (Inpatient). Status is Inpatient Admission. Condition is Fair. Problem is an ongoing problem. Symptoms have improved. UTI on Admission? No. sg
--- NOTE | 2019-03-19 13:50 | ER ---
Nurse's Notes [facility] Name: Yunior Lewis Age: 74 yrs Sex: Male : 1945 Arrival Date: 03/19/2019 Time: 12:41 Bed 6 Private MD: Diagnosis: Chronic obstructive pulmonary disease with (acute) exacerbation;Pulmonary edema;Dyspnea, unspecified;Weakness;Dehydration Presentation: 03/19 12:42 Presenting complaint: EMS states: pt from [facility], was here last night and was tw2 previously hospitalized twice for the same complaints, pt has generalized weakness that has progressed over the past 6 weeks, his RIGHT arm injury happened while he was hospitalized last, no fracture, Hx: copd, kidney transplants, uses o2, [facility] had him on a concenrator at 5L and he was 65%, we put him on our oxygen and he went up to 95% also his right knee is bruised and swollen. Transition of care: patient was received from another setting of care (long-term care facility), [facility]. Onset of symptoms was March 19, 2019. Risk Assessment: Do you want to hurt yourself or someone else? Patient reports no desire to harm self or others. Initial Sepsis Screen: Does the patient meet any 2 criteria? No. Patient's initial sepsis screen is negative. Does the patient have a suspected source of infection? No. Patient's initial sepsis screen is negative. Care prior to arrival: Oxygen administered. via nasal cannula. 12:42 Method Of Arrival: EMS: [facility] tw2 12:42 Acuity: JAQUAN 3 tw2 Triage Assessment: 12:47 General: Appears in no apparent distress. Behavior is calm, cooperative, appropriate tw2 for age. Pain: Complains of pain in right knee. Historical: - Allergies: 12:42 NSAIDS; hb 12:42 PENICILLINS; hb 12:42 Warfarin; hb - Home Meds: 13:00 labetalol 200 mg Oral tab 1 tab 2 times per day [Active]; allopurinol 100 mg Oral tab 1 tw2 tab 2 times per day [Active]; hydrocodone-acetaminophen 7.5-325 mg Oral tab 1 tab every 4 hours [Active]; rosuvastatin 10 mg oral tab 1 tab once daily [Active]; Klor-Con 10 10 mEq Oral TbER 2 tabs once daily [Active]; primidone 50 mg oral tab 1 tabs 3 times per day [Active]; Breo Ellipta 100-25 mcg/dose inhalation dsdv 1 puff once daily [Active]; Ventolin Rotahaler/Rotacaps 90 mcg Inhl [Active]; Novolin 70/30 [place] Sub-Q [Active]; Voltaren Oral [Active]; duloxetine 30 mg oral cpDR 1 cap once daily [Active]; Restasis 0.05 % ophthalmic dpet 1 drop 2 times per day [Active]; Zioptan (PF) 0.0015 % ophthalmic dpet 1 drop once daily [Active]; ipratropium bromide 0.02 % inhalation soln [Active]; tacrolimus 1 mg oral cap every 12 hours [Active]; mycophenolate mofetil 500 mg oral tab 2 tabs 2 times per day [Active]; prednisone 5 mg Oral tab once daily [Active]; pantoprazole 40 mg oral TbEC 1 tab once daily [Active]; sucralfate 1 gram Oral tab 1 tab 4 times per day [Active]; cholestyramine (bulk) miscellaneous powd [Active]; furosemide 40 mg Oral tab 1 tab 2 times per day [Active]; Eliquis 5 mg oral tab 1 tab 2 times per day [Active]; digoxin 125 mcg Oral tab 1 tab once daily [Active]; - PMHx: 12:42 COPD; hb 13:00 Hyperlipidemia; Hypertension; Diabetes - IDDM; Sleep Apnea; gastritis; tw2 - PSHx: 13:00 kidney transplant; tw2 - Immunization history:: Adult Immunizations up to date. - Social history:: Smoking status: Patient denies any tobacco usage or history of. - Ebola Screening: : Patient denies travel to an Ebola-affected area in the 21 days before illness onset. - Family history:: not pertinent. - Hospitalizations: : No recent hospitalization is reported. Screenin:41 Abuse screen: Denies threats or abuse. Denies injuries from another. Nutritional hb screening: No deficits noted. Tuberculosis screening: No symptoms or risk factors identified. Fall Risk Total Marroquin Fall Scale indicates Low Risk Score (25-44 pts). Fall prevention measures have been instituted. Side Rails Up X 2 Frequent Obs/Assesments occuring As available Patient and Family Educated on Fall Prevention Program and strategies. Assessment: 13:01 General: Appears in no apparent distress. Behavior is calm, cooperative. Pain: Pain hb currently is 2 out of 10 on a pain scale. Neuro: Level of Consciousness is awake, alert, obeys commands, Oriented to person, place, time, situation. 13:01 Cardiovascular: Heart tones S1 S2 present Capillary refill < 3 seconds Patient's skin hb is warm and dry. Respiratory: Airway is patent Respiratory effort is mildly labored Respiratory pattern is tachypnea Breath sounds are clear bilaterally. GI: No signs and/or symptoms were reported involving the gastrointestinal system. : No signs and/or symptoms were reported regarding the genitourinary system. EENT: No signs and/or symptoms were reported regarding the EENT system. Derm: Skin is dry, Skin is pale, Skin temperature is warm. Musculoskeletal: Reports right arm pain. 14:00 Reassessment: Patient appears in no apparent distress at this time. No changes from hb previously documented assessment. Patient and/or family updated on plan of care and expected duration. Pain level reassessed. 15:00 Reassessment: Patient appears in no apparent distress at this time. No changes from hb previously documented assessment. Patient and/or family updated on plan of care and expected duration. Pain level reassessed. Vital Signs: 12:46 BP 137 / 82; Pulse 89; Resp 24; Temp 97.9(O); Pulse Ox 95% on 2 lpm NC; Weight 99.79 kg tw2 (R); Height 5 ft. 11 in. (180.34 cm); Pain 2/10; 13:30 BP 138 / 78; Pulse 89; Resp 22; Pulse Ox 96% on 2 lpm NC; hb 14:00 BP 132 / 80; Pulse 88; Resp 21; Pulse Ox 100% on Nebulizer Mask; Pain 2/10; hb 12:46 Body Mass Index 30.68 (99.79 kg, 180.34 cm) tw2 ED Course: 12:41 Patient arrived in ED. tw2 12:41 Conrado Stallings MD is Attending Physician. tw2 12:41 Caro Padron RN is Primary Nurse. tw2 12:41 Arm band placed on. hb 12:42 Bed in low position. Call light in reach. Side rails up X2. sole leveler on. Pulse tw2 ox on. NIBP on. 12:46 Triage completed. tw2 13:04 Libby Terrazas, RN is Primary Nurse. hb 13:07 Inserted saline lock: 22 gauge in right antecubital area, using aseptic technique. hb Blood collected. 13:10 CT Head Brain wo Cont In Process Unspecified. EDMS 13:24 XRAY Chest (1 view) Sent. hb 13:38 XRAY Knee RIGHT 3 view In Process Unspecified. EDMS 13:38 XRAY Chest (1 view) In Process Unspecified. EDMS 13:49 Derrick Guzman MD is Hospitalizing Provider. rn 14:56 EKG done, by coal gasification technician. reviewed by Conrado Stallings MD. at1 14:59 No provider procedures requiring assistance completed. Patient admitted, IV remains in hb place. Administered Medications: 14:00 Drug: SOLU-Medrol 125 mg Route: IVP; Site: right antecubital; hb 14:15 Follow up: Response: No adverse reaction hb 14:00 Drug: Xopenex (3) 1.25 mg Route: Inhalation; hb Outcome: 13:50 Decision to Hospitalize by Provider. rn 14:59 Admitted to Tele accompanied by tech, via stretcher, room 409, with oxygen, with chart. hb 14:59 Condition: stable 14:59 Instructed on the need for admit, Demonstrated understanding of instructions. 15:15 Patient left the ED. hb Signatures: Dispatcher [employer] Conrado Weathers MD MD rn Gonzales, Amanda, research physicist EKG Tat1 Libby Terrazas, RN RN Caro Pinto RN RN tw2
[2019-03-19] MEDS ORDERED: LEVALBUTEROL 1.25 MG/3 ML NEB ONE (14:02)
[2019-03-19] MEDS ORDERED: METHYLPREDNISOLONE 125 MG INJ ONE (14:02)
--- NOTE | 2019-03-19 14:15 | RAD REPORT ---
EXAM DESCRIPTION: RAD - Knee Right 3 View - 03/19/2019 1:38 pm CLINICAL HISTORY: PAIN, weakness COMPARISON: Knee Right 2 View dated 01/08/2014 FINDINGS: No fracture, dislocation or periosteal reaction.Total knee prosthesis in place. No radiogr aphic evidence for loosening. No acute findings of the [place] bone. Moderate joint effusion is presen t increased over prior imaging. Dense arterial tree calcifications are present. Soft tissues anterior to the knee are thickened and edematous. IMPRESSION: Right total knee prosthesis in place without radiographic evidence for loosening. No acute finding of the [place] bone identifiable. Moderate-sized joint effusion has developed since 2013 and there is prominent edema in the soft tissu es anterior to the knee joint.
--- NOTE | 2019-03-19 14:19 | RAD REPORT ---
EXAM DESCRIPTION: Janell Single View03/19/2019 1:38 pm CLINICAL HISTORY: Shortness of breath COMPARISON: February 27, 2019 FINDINGS: Moderate bilateral pulmonary opacities. Right pleural effusion is suspected. The heart is enlarged IMPRESSION: These findings likely represent CHF
[2019-03-19 15:11] LABS: Arterial Blood Carboxyhemoglob 2.5 % (0-1.5); Blood Gas Oxyhemoglobin 88.6 % (94-97); Blood O2 Saturation 91.5 % (92-98.5)
[2019-03-19] MEDS ORDERED: ONDANSETRON 4 MG/2 ML VIAL IV PRN (15:25)
[2019-03-19] MEDS ORDERED: IPRATROPIUM BROM 0.5MG/2.5ML ONE (15:51)
[2019-03-19] MEDS ORDERED: ALBUTEROL 2.5 MG/3 ML NEB SOL ONE (15:51)
[2019-03-19] MEDS: IPRATROPIUM BROM 0.5MG/2.5ML NEB SCH ×3 (15:55→23:15)
[2019-03-19] MEDS: ALBUTEROL 2.5 MG/3 ML NEB SOL NEB SCH ×3 (15:55→23:15)
[2019-03-19] MEDS: INSULIN -REGULAR HUMAN 50 UNIT/0.5 ML ML SQ SCH ×2 (16:30→21:57)
[2019-03-19] MEDS: METHYLPREDNISOLONE 40 MG INJ IV SCH (18:32)
[2019-03-19] MEDS: FUROSEMIDE 40 MG/4 ML VIAL IV SCH (18:33)
--- NOTE | 2019-03-19 22:47 | HP ---
Date of Admission: 03/19/2019 Code Status: Do not attempt resuscitation. Patient has no medical power of estate attorney. He does have a living will. He does not wish to have any resuscitative efforts including CPR or mechanical ventilation. Chief Complaint: Shortness of breath. History Of Present Illness: The patient is a 74-year-old male with past medical history of COPD, atr ial fibrillation on anticoagulation. Patient is also O2 dependent. The patient lives in [facility] and lives with his . Patient had a fall, he was recently told to increase tubing in his concen trator so he can be more mobile. He fell and hurt his right knee. He also reports worsening shortne ss of breath. Patient also has congestive heart failure with recent echocardiogram in January 2019, showing EF of 62%. The patient reported shortness of breath, has some cough. Denies any fever chil ls or any ill contacts. Patient was found to be saturating in the 60s. He was switched over to the EMS oxygen and improved to the 90s. The patient also looked dehydrated. His symptoms are constant, moderate, progressively worsening. In the ER, his workup showed a BNP of 2675. Troponin was negativ e. White blood cell count was normal. Patient's chest x-ray showed CHF and right pleural effusion. Patient was referred for admission. When seen in the ER, he was awake, alert, and oriented x3, in s ome mild respiratory distress. Past Medical History: COPD, congestive heart failure, diastolic dysfunction, arthritis, atrial fibri llation, on anticoagulation, GI ulcers, GI bleed. Surgical History: Right knee replacement, kidney transplant, 40% of stomach removed, carpal tunnel r epair. Allergies: PENICILLIN, ASPIRIN, AND WARFARIN. Medications: As per medication reconciliation list. Social History: Patient is a former smoker. No alcohol use or illicit drug use. Family History: Father has heart disease, hypertension, diabetes. Mother has hypertension and strok e. Review of Systems: Ten-point system reviewed, negative except as per HPI. Physical Examination: Vital Signs: Temperature 97.9, heart rate 89, blood pressure 137/82, respirations 24, O2 95% on 2 L via nasal cannula. General: Awake, alert, and oriented x3. Ill-appearing, in some mild respiratory distress. Elderly male, obese, BMI 30. HEENT: Normocephalic, atraumatic. PERRLA. EOMI. Moist mucous membranes. Oropharynx is clear. Co njunctivae are anicteric. Neck: Supple. Trachea midline. CV: S1, S2. Irregularly irregular rhythm. Peripheral pulses present. Respiratory: Diminished breath sounds, crackles present. The patient is tachypneic with use of acce ssory muscles. No stridor. Gastrointestinal: Abdomen is soft, nontender, nondistended. Positive bowel sounds. No guarding or rigidity. Extremities: No clubbing or cyanosis. Patient does have lower extremity edema. No calf tenderness. Neuro: Cranial nerves 2 through 12 intact grossly. No focal neurological deficits. Speech is ivelisse l. Skin: No rashes. Normal skin turgor. Laboratory Data: WBC 7, H and H 10.2 and 35, platelets 190, neutrophils 83%. ABG; pH 7.33, pCO2 73, pO2 70, bicarb 37.5. Sodium 141, potassium 4, chloride 100, CO2 of 38, BUN 12, creatinine 0.53, glu cose 111, calcium 8.3. Troponin less than 0.02. BNP 2675. Chest x-ray shows congestive heart failure, right pleural effusion. CT scan of the head shows atroph y and chronic ischemic changes present, no acute intracranial finding. Right knee x-ray, 3 view, cathy ws right total knee prosthesis in place without radiographic evidence for loosening. No acute findin g of the [place] bone identifiable, moderate-sized joint effusion has developed since 2014. There is prominent edema in the soft tissue anterior to the knee joint. Assessment: A 74-year-old male with, 1.Acute respiratory failure with hypoxia and hypercapnia. We will start on BiPAP. Consult Pulmonol ogy, likely secondary to chronic obstructive pulmonary disease exacerbation and congestive heart fail ure exacerbation. 2.Acute chronic obstructive pulmonary disease exacerbation. We will continue with nebulizer treatme nts, IV steroids. Continue with supplemental oxygen. 3.Acute on chronic diastolic heart failure. BNP is elevated. Patient has right-sided pleural effus ion. Chest x-ray shows congestive heart failure findings. We will start on diuretics. We will soham tor I's and O's, daily weights. 4.Atrial fibrillation. We will continue with rate control. 5.Moderate aortic stenosis. 6.Diabetes mellitus type 2, insulin dependent. We will continue with sliding scale insulin. Monito r blood glucose levels. 7.Essential hypertension, stable. We will continue with home medications. 8.Gastroesophageal reflux disease. Continue with Protonix. 9.Obesity, BMI 30. 10.Severe pulmonary hypertension. Plan: Admit patient to Med-Surg, place as inpatient. Length of stay greater than 2 midnights. ESTUARDO Voice ID: [id number]
[2019-03-20] MEDS: METHYLPREDNISOLONE 40 MG INJ IV SCH ×2 (01:02→08:51)
[2019-03-20] MEDS: ALBUTEROL 2.5 MG/3 ML NEB SOL NEB SCH ×2 (03:15→09:46)
[2019-03-20] MEDS: IPRATROPIUM BROM 0.5MG/2.5ML NEB SCH ×4 (03:15→20:10)
[2019-03-20 05:24] LABS: Urine Appearance CLEAR; Urine Bilirubin NEGATIVE (NEG); Urine Blood NEGATIVE (NEG); Urine Color YELLOW; Urine Glucose NEGATIVE (NEG); Urine Protein NEGATIVE (NEG); Urine Specific Gravity 1.015 (1.005-1.030); Urine Urobilinogen 0.2 mg/dL (0.2-1.0)
[2019-03-20 05:46] LABS: Urine Microscopic Reflex NO UMIC
[2019-03-20] MEDS: FUROSEMIDE 40 MG/4 ML VIAL IV SCH (06:18)
[2019-03-20 07:26] LABS: BUN Blood Urea Nitrogen 12 mg/dL (7-18); Bicarbonate 37 mmol/L (21-32); Glucose Level 104 mg/dL (74-106); Potassium 4.3 mmol/L (3.5-5.1); Sodium Level 143 mmol/L (136-145)
[2019-03-20] MEDS: INSULIN -REGULAR HUMAN 50 UNIT/0.5 ML ML SQ SCH ×4 (07:30→20:43)
[2019-03-20 08:20] LABS: Absolute Lymphocytes (CBC) 0.5 K/uL (0.7-4.9); Basophils % 0.8 % (0-1.3); Hematocrit 36.7 % (39.6-49.0); Lymphocytes % 9.6 % (15.3-44.8); MPV 9.2 fL (7.6-11.3); RBC Red Blood Cell Count 4.85 M/uL (4.33-5.43)
--- NOTE | 2019-03-20 08:36 | EKG ---
Test Date: 2019-03-19 Test Time: 14:42:50 Bone Char Operator: ARISTEO MEASUREMENT RESULTS: Intervals: Rate: 97 ME: QRSD: 144 QT: 322 QTc: 408 C[place]ra: P: ME: QRS: 268 T: 84 INTERPRETIVE STATEMENTS: Atrial fibrillation Right bundle branch block Abnormal ECG Compared to ECG 02/26/2019 17:20:17 No significant changes Electronically Signed On 03-20-19 08:35:17 PHARMACY DELIVERY DRIVER by Stefan Montalvo
--- NOTE | 2019-03-20 10:53 | P.CNS ---
Date of Consult: 03/20/19 Reason for Consult: COPD exacerbation Chief Complaint: Chest congestion and weakness History of Present Illness: Patient is 74 years of age has been deteriorating steadily recurrent hospital admissions recently he has been weak falling more chest congestion compliant with this therapy the patient is on a prednisone 5 mg a day felt much better when he was taking 10 mg Allergies Penicillins Allergy (Verified 03/20/19 03:57) Itching/Hives/Rash aspirin Adverse Reaction (Verified 03/20/19 03:57) Rash warfarin Adverse Reaction (Verified 03/20/19 03:57) Rash Home Medications: Albuterol Sulfate [Proair Hfa] 2 puff IH QIDP PRN 09/30/17 Apixaban [Eliquis] 5 mg PO BID 09/30/17 Carboxymethylcellulose Sodium [Refresh Liquigel] 1 drop EACH EYE BID PRN Cyclosporine [Restasis] 1 drop EACH EYE BID 09/30/17 Diclofenac Sodium [Voltaren] 1 gm TP TID PRN 09/30/17 Digoxin [Lanoxin*] 1 tab PO DAILY 09/30/17 Furosemide [Lasix] 40 mg PO BIDWM 09/30/17 Hydrocodone Bit/Acetaminophen [[place] 7.5-325 Tablet] 1 tab PO TID PRN 09/30/17 Insulin Aspart Prot/Insuln Asp [Novolog Mix 70-30 Flexpen] 15 unit SQ DAILY AT SUPPER 09/30/17 Insulin Aspart Prot/Insuln Asp [Novolog Mix 70-30 Flexpen] 25 unit SQ BREAKFAST 09/30/17 Labetalol HCl [Trandate] 200 mg PO BID 09/30/17 Mycophenolate Mofetil [Cellcept] 2 tab PO Q12H 09/30/17 Pantoprazole Sodium [Protonix] 40 mg PO BID 09/30/17 Potassium Chloride [Klor-Con 10] 10 meq PO DAILY 09/30/17 Primidone [Mysoline] 50 mg PO TID 09/30/17 Rosuvastatin [Crestor*] 10 mg PO BEDTIME 09/30/17 Tacrolimus [Prograf] 3 mg PO Q12HR 09/30/17 allopurinoL [Allopurinol] 100 mg PO BID 09/30/17 Cholestyramine (with Sugar) [Cholestyramine Packet] 2 packet PO BEDTIME PRN 01/13 Tafluprost/Pf [Zioptan 0.0015% Eye Drops] 1 gtt EACH EYE DAILY 02/04/19 Fluticasone/Umeclidin/Vilanter [Trelegy Ellipta 100-62.5-25] 1 each IH DAILY # 30 blst.w.dev 02/07/19 Duloxetine HCl 30 mg PO DAILY 03/20/19 Ipratropium [Atrovent 0.03% (21MCG)/[place] Nasal*] 2 spray IH QID 03/20/19 Sucralfate [Carafate*] 1 tab PO QID 03/20/19 predniSONE [Prednisone] 5 mg PO DAILY 03/20/19 - Past Medical/Surgical History Diabetic: Yes -: COPD -: Diastolic CHF -: Atrial fibrillation/chronic anti coalition therapy -: SEvere Pulmonary Hypertension -: Moderate Aortic Stenosis -: Moderate aortic stenosis -: Severe pulmonary hypertension -: Diastolic CHF -: R KNEE REPLACEMENT -: KIDNEY TRANSPLANT -: 40% STOMACH REMOVAL -: CARPAL TUNNEL REPAIR -: Rt Hip Replacement Psychosocial/ Personal History: Patient lives at home - Family History Father Medical History: Heart disease, Hypertension, Diabetes Mother Medical History: Hypertension, Stroke - Social History Alcohol use: Yes CD- Drugs: No Caffeine use: Yes Place of Residence: Home Review of Systems General: Weakness Respiratory: Cough, Shortness of Breath Cardiovascular: Edema Physical Examination Temp Pulse Resp BP Pulse Ox 97.5 F 86 18 145/89 H 100 03/20/19 08:00 03/20/19 08:00 03/20/19 08:00 03/20/19 08:00 03/20/19 08:00 General: Alert, In no apparent distress, Oriented x3 HEENT: Atraumatic Neck: Supple Respiratory: Diminished Cardiovascular: Edema (Chronic lower extremity edema no change), Irregular heart rate/rhythm Gastrointestinal: Normal bowel sounds, Soft and benign Musculoskeletal: No clubbing Integumentary: No rashes, No breakdown Laboratory Data (last 24 hrs) 03/19/19 13:00: Sodium 141, Potassium 4.0, BUN 12, Creatinine 0.53 L, Glucose 111 H 03/19/19 13:00: WBC 7.0, Hgb 10.2 L, Hct 35.0 L, Plt Count 190 - Problems (1) COPD exacerbation Current Visit: Yes Status: Acute Plan: Patient is 74 years of age well known to me with terminal COPD recurrent hospitalization he has been feeling very weak recently on chronic prednisone 5 mg dosage due to renal transplant patient felt better on 10 mg he is to stay on 10 mg of prednisone the time of discharge of order some physical therapy in addition patient has severe pulmonary hypertension no evidence of right ventricular dilatation in addition to aortic stenosis is most likely secondary pulmonary hypertension compliant with the bronchodilators BNP is also elevated patient has terminal COPD at this time I suggest adding spironolactone change to p.o. Lasix physical therapy he is on trilogy at home the demon for pulmonary hypertension is usually contraindicated if the rest secondary causes in this case including aortic stenosis severe COPD in addition he has chronic hypoxic hypercapnic respiratory failure in his on BiPAP overall prognosis is very poor
[2019-03-20] MEDS: SPIRONOLACTONE 25 MG TABLET PO SCH ×2 (11:00→20:41)
[2019-03-20] MEDS ORDERED: CARBOXYMETHYLCELLULOSE SODIUM EACH EYE PRN (11:24)
[2019-03-20] MEDS: MYCOPHENOLATE MOFETIL 500 MG PO SCH ×2 (11:30→23:14)
[2019-03-20] MEDS ORDERED: CEPHALEXIN 500 MG CAP PO SCH (12:30)
[2019-03-20 12:40] LABS: Anisocytosis 1+; Blood Morphology Comment NOTED (NOT SEEN); Elliptocytes 1+; Hypochromasia 1+; Platelet Estimate ADEQ; Urine White Blood Cell Casts OK
[2019-03-20] MEDS ORDERED: IPRATROPIUM IH SCH (13:00)
[2019-03-20] MEDS: PRIMIDONE 50 MG TAB PO SCH ×2 (14:08→20:42)
--- NOTE | 2019-03-20 14:11 | RAD REPORT ---
EXAM DESCRIPTION: RAD - Chest Pa And Lat (2 Views) - 03/20/2019 2:05 pm CLINICAL HISTORY: CHF, SOB Chest pain. COMPARISON: Chest Single View dated 03/19/2019; Chest Pa And Lat (2 Views) dated 02/27/2019; Chest Sing le View dated 02/26/2019; Chest Pa And Lat (2 Views) dated 02/05/2019 FINDINGS: Mild improvement is seen since comparative study in the bilateral pulmonary opacities. The heart is significantly enlarged. Small right pleural effusion. IMPRESSION: Mild improvement in CHF.
[2019-03-20 14:36] LABS: C.diff Antigen/Toxin Ag neg : Tox neg (NEG : NEG)
[2019-03-20] MEDS: ACETAMINOPHEN 500 MG TAB PO PRN (15:51)
[2019-03-20] MEDS: SUCRALFATE 1 GM TABLET PO SCH ×2 (15:53→20:41)
[2019-03-20] MEDS ORDERED: NOVOLOG MIX SQ SCH (17:00)
[2019-03-20] MEDS ORDERED: HUMALOG MIX 75/25 100 UNITS/ML SQ SCH (17:00)
[2019-03-20] MEDS: CEPHALEXIN 500 MG CAP PO SCH ×2 (17:39→23:14)
--- NOTE | 2019-03-20 18:40 | PN ---
Date of Progress Note: 03/20/2019 Subjective: Patient is seen and examined. Chart reviewed and case discussed with RN and Dr. Darlyn luis. Patient is doing better. Family at the bedside. Treatment plan explained, all questions answere d. Medications: Reviewed. Physical Examination: Vital Signs: Temperature 97.8, heart rate 97, blood pressure 123/68, respirations 28, O2 of 98% on 3 L via nasal cannula. General: Awake, alert, oriented x3, in some mild respiratory distress. CV: S1, S2. Irregularly irregular. Respiratory: Diminished breath sounds, wheezing present. Gastrointestinal: Abdomen is soft, nontender, nondistended. Positive bowel sounds. Extremities: No clubbing, cyanosis, or edema. Neurologic: Nonfocal. Laboratory Data: Sodium 143, potassium 4.3, chloride 101, CO2 of 37, BUN 12, creatinine 0.55, glucos e 104, calcium 8.3. WBC 5.7, H and H 10.7 and 36.7, platelets 177, neutrophils 79%. C diff assay is negative. Sputum cultures pending. Chest x-ray shows mild improvement in CHF, personally reviewed. Assessment: A 74-year-old male with: 1.Acute respiratory failure with hypoxia and hypercapnia. Continue BiPAP. Appreciate pulmonology i nput likely secondary to chronic obstructive pulmonary disease and congestive heart failure. 2.Acute chronic obstructive pulmonary disease exacerbation. Continue nebulizer treatments, IV stero ids. Continue with supplemental oxygen. 3.Acute on chronic diastolic heart failure. BNP elevated. Chest x-ray shows improvement after diur esis. 4.Atrial fibrillation. Continue with rate control. 5.Moderate aortic stenosis. 6.Diabetes mellitus type 2, insulin dependent. We will continue sliding scale insulin. Monitor blo od glucose levels. 7.Essential hypertension, stable. 8.Gastroesophageal reflux disease without esophagitis. Continue Protonix. 9.Obesity, BMI 30. 10.Severe pulmonary hypertension. 11.Rosacea. Plan: alf facility placement. SA/MODL Voice ID: [id number] Report ID: [id number]
[2019-03-20] MEDS: predniSONE 10 MG TAB PO SCH (20:41)
[2019-03-20] MEDS: APIXABAN 5 MG TABLET PO SCH (20:41)
[2019-03-20] MEDS: allopurinoL 100 MG TAB PO SCH (20:42)
[2019-03-20] MEDS: LABETALOL HCL 100 MG TAB PO SCH (20:42)
[2019-03-20] MEDS: ROSUVASTATIN 10 MG TAB PO SCH (20:42)
[2019-03-20] MEDS: IPRATROPIUM NAS SCH (20:44)
[2019-03-20] MEDS: TACROLIMUS 1 MG CAPSULE PO SCH (20:45)
[2019-03-20] MEDS: HOME MED 1 EA UNK (Cyclosporine [Restasis] 1 DROP) EACH EYE SCH (20:49)
[2019-03-20] MEDS ORDERED: PANTOPRAZOLE 40MG TABLET PO SCH (21:00)
[2019-03-21] MEDS: IPRATROPIUM BROM 0.5MG/2.5ML NEB SCH ×4 (02:30→20:15)
[2019-03-21 05:19] LABS: BUN Blood Urea Nitrogen 11 mg/dL (7-18); Bicarbonate 40 mmol/L (21-32); Glucose Level 110 mg/dL (74-106); Magnesium 1.7 mg/dL (1.8-2.4); Potassium 3.9 mmol/L (3.5-5.1); Sodium Level 142 mmol/L (136-145)
[2019-03-21] MEDS ORDERED: MAGNESIUM SULFATE 1 gm IVPB 1 GM/100 ML BAG IV ONE (05:20)
[2019-03-21] MEDS ORDERED: POTASSIUM CL SA 10 MEQ TAB PO ONE (05:21)
[2019-03-21 05:49] LABS: Absolute Lymphocytes (CBC) 0.6 K/uL (0.7-4.9); Basophils % 1.1 % (0-1.3); Hematocrit 32.8 % (39.6-49.0); Lymphocytes % 9.5 % (15.3-44.8); MPV 9.1 fL (7.6-11.3); RBC Red Blood Cell Count 4.41 M/uL (4.33-5.43)
[2019-03-21] MEDS: CEPHALEXIN 500 MG CAP PO SCH ×4 (06:19→23:53)
[2019-03-21] MEDS: INSULIN -REGULAR HUMAN 50 UNIT/0.5 ML ML SQ SCH ×4 (07:30→21:00)
[2019-03-21] MEDS ORDERED: NOVOLOG MIX SQ SCH (08:00)
[2019-03-21] MEDS ORDERED: HUMALOG MIX 75/25 100 UNITS/ML SQ SCH (08:00)
[2019-03-21] MEDS: ALBUTEROL 2.5 MG/3 ML NEB SOL NEB PRN (08:01)
[2019-03-21] MEDS: DULOXETINE 30 MG CAP PO SCH (08:31)
[2019-03-21] MEDS: FUROSEMIDE 40 MG TABLET PO SCH (08:31)
[2019-03-21] MEDS: APIXABAN 5 MG TABLET PO SCH ×2 (08:31→21:28)
[2019-03-21] MEDS: allopurinoL 100 MG TAB PO SCH ×2 (08:32→21:28)
[2019-03-21] MEDS: SPIRONOLACTONE 25 MG TABLET PO SCH ×2 (08:32→21:29)
[2019-03-21] MEDS: SUCRALFATE 1 GM TABLET PO SCH ×4 (08:32→21:29)
[2019-03-21] MEDS: LABETALOL HCL 100 MG TAB PO SCH ×2 (08:32→21:28)
[2019-03-21] MEDS: predniSONE 10 MG TAB PO SCH ×2 (08:32→21:29)
[2019-03-21] MEDS: DIGOXIN 0.125 MG TABLET PO SCH (08:33)
[2019-03-21] MEDS: TACROLIMUS 1 MG CAPSULE PO SCH ×2 (08:35→21:33)
[2019-03-21] MEDS: IPRATROPIUM NAS SCH ×4 (08:35→21:27)
[2019-03-21] MEDS: PRIMIDONE 50 MG TAB PO SCH ×3 (08:37→21:27)
[2019-03-21] MEDS ORDERED: HOME MED 1 EA UNK (Fluticasone/Umeclidin/Vilanter [Trelegy Ellipta 100-62.5-25] 1 EACH) IH SCH (09:00)
[2019-03-21] MEDS ORDERED: POTASSIUM CL SA 10 MEQ TAB PO SCH (09:00)
[2019-03-21] MEDS: HOME MED 1 EA UNK (Cyclosporine [Restasis] 1 DROP) EACH EYE SCH ×2 (09:00→21:00)
[2019-03-21] MEDS: TAFLUPROST EACH EYE SCH (09:00)
[2019-03-21] MEDS: MYCOPHENOLATE MOFETIL 500 MG PO SCH ×2 (12:22→23:53)
--- NOTE | 2019-03-21 13:07 | PN ---
Date of Progress Note: 03/21/2019 History: Patient seen and examined, chart reviewed and case discussed with RN and Dr. Kitchen. Reva boyer is doing significantly better, diuresing well. His breathing is better. Cough still present. Medications: Reviewed. Physical Examination: Vital Signs: Temperature 98.1, heart rate 103, blood pressure 152/94, respirations 24, O2 97% on 3 L via nasal cannula. General: Awake, alert, oriented x3, elderly male in some mild respiratory distress, ill-appearing, o bese, BMI 30. CV: S1, S2. Irregularly irregular. Peripheral pulses present. Respiratory: Diminished breath sounds. Patient is tachypneic with the use of accessory muscles. Wh eezing present. Some rhonchi heard. Gastrointestinal: Abdomen is soft, nontender, nondistended. Positive bowel sounds. Extremities: No clubbing, cyanosis, or edema. Neurologic: Nonfocal. Laboratory Data: Sodium 142, potassium 3.9, chloride 100, CO2 40, BUN 11, creatinine 0.45, glucose 1 10 calcium 8.2, magnesium 1.7. WBC 6.7, H and H 10 and 32.8, platelets 151, neutrophils 78%. Sputum culture growing out normal maria r. Assessment: 74-year-old male with; 1.Acute respiratory failure with hypoxia and hypercapnia. Continue BiPAP likely secondary to chroni c obstructive pulmonary disease and congestive heart failure improving. Appreciate pulmonology input . 2.Acute chronic obstructive pulmonary disease exacerbation improving with nebulizer treatments and s teroids have been switched over to p.o. We will continue with supplemental oxygen. 3.Acute on chronic diastolic heart failure. Patient is diuresing well. Aldactone has been added. Chest x-ray showed some improvement. Continue with fluid restriction. Monitor I's and O's. 4.Atrial fibrillation, chronic, prominent, continue with rate control. 5.Moderate aortic stenosis. 6.Severe pulmonary hypertension. 7.Diabetes mellitus type 2 insulin dependent with hyperglycemia. We will continue to monitor blood glucose levels. Patient is on steroids. 8.Status post kidney transplant on anti-rejection medications. 9.Essential hypertension, stable. 10.Gastroesophageal reflux disease without esophagitis, continue Protonix. 11.Obesity, body mass index 30. Plan: PT, OT, longterm facility placement pending. Overall poor prognosis. SA/MODL Voice ID: [id number] Report ID: [id number]
[2019-03-21] MEDS: PANTOPRAZOLE 40MG TABLET PO SCH (21:28)
[2019-03-21] MEDS: ROSUVASTATIN 10 MG TAB PO SCH (21:29)
[2019-03-22] MEDS: IPRATROPIUM BROM 0.5MG/2.5ML NEB SCH ×4 (01:30→20:35)
[2019-03-22] MEDS: CEPHALEXIN 500 MG CAP PO SCH ×3 (05:48→17:01)
[2019-03-22 06:11] LABS: Absolute Lymphocytes (CBC) 0.7 K/uL (0.7-4.9); Basophils % 0.5 % (0-1.3); Hematocrit 33.6 % (39.6-49.0); Lymphocytes % 11.7 % (15.3-44.8); RBC Red Blood Cell Count 4.51 M/uL (4.33-5.43)
[2019-03-22 06:33] LABS: BUN Blood Urea Nitrogen 12 mg/dL (7-18); Bicarbonate 38 mmol/L (21-32); Glucose Level 104 mg/dL (74-106); Magnesium 1.8 mg/dL (1.8-2.4); Potassium 3.8 mmol/L (3.5-5.1); Sodium Level 142 mmol/L (136-145)
[2019-03-22] MEDS ORDERED: MAGNESIUM SULFATE 1 gm IVPB 1 GM/100 ML BAG IV ONE (07:30)
[2019-03-22] MEDS: INSULIN -REGULAR HUMAN 50 UNIT/0.5 ML ML SQ SCH ×4 (07:30→21:00)
[2019-03-22] MEDS ORDERED: POTASSIUM CL SA 10 MEQ TAB PO ONE (07:30)
[2019-03-22] MEDS: ALBUTEROL 2.5 MG/3 ML NEB SOL NEB PRN (08:39)
[2019-03-22] MEDS: SUCRALFATE 1 GM TABLET PO SCH ×4 (08:44→21:47)
[2019-03-22] MEDS: PANTOPRAZOLE 40MG TABLET PO SCH ×2 (08:44→21:48)
[2019-03-22] MEDS: predniSONE 10 MG TAB PO SCH ×2 (08:44→21:47)
[2019-03-22] MEDS: allopurinoL 100 MG TAB PO SCH ×2 (08:44→21:47)
[2019-03-22] MEDS: DIGOXIN 0.125 MG TABLET PO SCH (08:44)
[2019-03-22] MEDS: SPIRONOLACTONE 25 MG TABLET PO SCH ×2 (08:45→21:47)
[2019-03-22] MEDS: FUROSEMIDE 40 MG TABLET PO SCH (08:45)
[2019-03-22] MEDS: LABETALOL HCL 100 MG TAB PO SCH ×2 (08:45→21:46)
[2019-03-22] MEDS: DULOXETINE 30 MG CAP PO SCH (08:46)
[2019-03-22] MEDS: APIXABAN 5 MG TABLET PO SCH ×2 (08:46→21:46)
[2019-03-22] MEDS: HOME MED 1 EA UNK (Cyclosporine [Restasis] 1 DROP) EACH EYE SCH ×2 (08:47→21:00)
[2019-03-22] MEDS: IPRATROPIUM NAS SCH ×5 (08:47→21:49)
[2019-03-22] MEDS: PRIMIDONE 50 MG TAB PO SCH ×3 (08:48→21:48)
[2019-03-22] MEDS: TACROLIMUS 1 MG CAPSULE PO SCH ×2 (08:50→21:50)
[2019-03-22] MEDS: TAFLUPROST EACH EYE SCH (08:50)
[2019-03-22] MEDS ORDERED: VANCOMYCIN 1 GM in NA CHLORIDE 0.9% 500 ML IVPB ONE (09:23)
--- NOTE | 2019-03-22 11:47 | PN ---
Date of Progress Note: 03/22/2019 Subjective: Patient is seen and examined. Chart reviewed and case discussed with RN. Patient is do ing well. He does have some pain in his right upper extremity along with erythema that is now develo ped. He has sutures in place from his abrasions. Medications: List reviewed. Physical Examination: Vital Signs: Temperature 98, heart rate 111, blood pressure 145/89, respirations 29, O2 of 90% on 3 L via nasal cannula, was on BiPAP overnight. General: Awake, alert, oriented x3. Elderly male, ill-appearing, in mild respiratory distress. CV: S1, S2, irregularly irregular. Peripheral pulses present. Respiratory: Diminished breath sounds. Some rhonchi heard. Gastrointestinal: Abdomen is soft, nontender, nondistended. Positive bowel sounds. Extremities: No clubbing, cyanosis. Patient has chronic lymphedema, however, has improved. Neurologic: Nonfocal. Laboratory Data: Sodium 142, potassium 3.8, chloride 101, CO2 of 38, BUN 12, creatinine 0.41, glucos e 104, calcium 8.4, magnesium 1.8. WBC 5.7, H and H of 9.8 and 33.6, platelets 141, neutrophils 74%. Assessment And Plan: A 74-year-old male with: 1.Acute respiratory failure with hypoxia and hypercapnia. Continue using BiPAP intermittently. Latif s require supplemental oxygen. This is secondary to chronic obstructive pulmonary disease and conges tive heart failure, improving. Pulmonology on board. 2.Acute chronic obstructive pulmonary disease exacerbation with hypoxia, currently on supplemental o xygen, improving with nebulizer treatments. Continue p.o. steroids. 3.Acute on chronic diastolic congestive heart failure exacerbation. Patient's fluid balance is nega tive. He is diuresing well and now back to oral Lasix. Aldactone has been added. X-ray showed impr ovement. 4.Atrial fibrillation, chronic, prominent. We will continue with rate control. 5.Moderate aortic stenosis. 6.Cellulitis of the right upper extremity. Patient had abrasion and has stitches. We will start on vancomycin. Obtain blood cultures. 7.Severe pulmonary hypertension. 8.Diabetes mellitus type 2, insulin dependent with hyperglycemia. We will continue to monitor blood glucose levels. Patient is on steroids, may need to adjust. Continue with sliding scale insulin. 9.Status post kidney transplant, on anti-rejection medications. 10.Essential hypertension, stable. 11.Gastroesophageal reflux disease without esophagitis. We will continue Protonix. 12.Obesity, BMI of 30. Disposition: care home facility placement once accepted and medically cleared. /TALIA Voice ID: [id number] Report ID: [id number]
[2019-03-22] MEDS: MYCOPHENOLATE MOFETIL 500 MG PO SCH ×2 (12:07→22:39)
[2019-03-22] MEDS: HYDROCODONE/APAP 7.5/325 MG TAB PO PRN (16:18)
[2019-03-22] MEDS ORDERED: VANCOMYCIN/NS 1 gm 1 GM/250 ML BAG IVPB SCH (21:00)
[2019-03-22] MEDS: ROSUVASTATIN 10 MG TAB PO SCH (21:47)
[2019-03-22] MEDS: VANCOMYCIN 1.75 GM in NA CHLORIDE 0.9% 500 ML IVPB SCH (22:00)
[2019-03-22] MEDS ORDERED: NA CHLORIDE 0.9% 500 ML ONE (22:15)
[2019-03-22] MEDS ORDERED: VANCOMYCIN 1 GM/VIAL ONE (22:19)
[2019-03-23] MEDS: CEPHALEXIN 500 MG CAP PO SCH ×4 (00:34→17:12)
[2019-03-23] MEDS: IPRATROPIUM BROM 0.5MG/2.5ML NEB SCH ×4 (02:40→20:00)
[2019-03-23 05:28] LABS: BUN Blood Urea Nitrogen 10 mg/dL (7-18); Bicarbonate 40 mmol/L (21-32); Glucose Level 108 mg/dL (74-106); Magnesium 1.9 mg/dL (1.8-2.4); Potassium 4.1 mmol/L (3.5-5.1); Sodium Level 141 mmol/L (136-145)
[2019-03-23] MEDS: INSULIN -REGULAR HUMAN 50 UNIT/0.5 ML ML SQ SCH ×4 (07:30→21:00)
[2019-03-23] MEDS: PANTOPRAZOLE 40MG TABLET PO SCH ×2 (08:41→22:33)
[2019-03-23] MEDS: predniSONE 10 MG TAB PO SCH ×2 (08:41→22:33)
[2019-03-23] MEDS: APIXABAN 5 MG TABLET PO SCH ×2 (08:41→22:34)
[2019-03-23] MEDS: DIGOXIN 0.125 MG TABLET PO SCH (08:41)
[2019-03-23] MEDS: DULOXETINE 30 MG CAP PO SCH (08:41)
[2019-03-23] MEDS: allopurinoL 100 MG TAB PO SCH ×2 (08:41→22:32)
[2019-03-23] MEDS: SUCRALFATE 1 GM TABLET PO SCH ×4 (08:41→22:33)
[2019-03-23] MEDS: IPRATROPIUM NAS SCH ×4 (08:42→22:35)
[2019-03-23] MEDS: LABETALOL HCL 100 MG TAB PO SCH ×2 (08:42→22:33)
[2019-03-23] MEDS: FUROSEMIDE 40 MG TABLET PO SCH (08:42)
[2019-03-23] MEDS: SPIRONOLACTONE 25 MG TABLET PO SCH ×2 (08:42→22:42)
[2019-03-23] MEDS: PRIMIDONE 50 MG TAB PO SCH ×3 (08:43→22:40)
[2019-03-23] MEDS: TACROLIMUS 1 MG CAPSULE PO SCH ×2 (08:43→22:35)
[2019-03-23] MEDS: HOME MED 1 EA UNK (Cyclosporine [Restasis] 1 DROP) EACH EYE SCH ×2 (08:45→21:00)
[2019-03-23] MEDS: TAFLUPROST EACH EYE SCH (08:45)
[2019-03-23] MEDS: VANCOMYCIN 1.75 GM in NA CHLORIDE 0.9% 500 ML IVPB SCH ×2 (09:55→22:32)
[2019-03-23] MEDS: MYCOPHENOLATE MOFETIL 500 MG PO SCH ×2 (11:20→22:35)
[2019-03-23] MEDS: HYDROCODONE/APAP 7.5/325 MG TAB PO PRN (13:06)
--- NOTE | 2019-03-23 17:54 | RAD REPORT ---
EXAM DESCRIPTION: RAD - Chest Single View - 03/23/2019 5:48 pm CLINICAL HISTORY: shotness of breath Chest pain. COMPARISON: Chest Pa And Lat (2 Views) dated 03/20/2019; Chest Single View dated 03/19/2019; Chest Pa And Lat (2 Views) dated 02/27/2019; Chest Single View dated 02/26/2019 FINDINGS: Portable technique limits examination quality. Since 03/20/2019, there has been mild worsening in pulmonary opacities. The heart is moderately enlar ged. No displaced fractures. IMPRESSION: Mild worsening in bilateral pulmonary opacities since comparative study.
[2019-03-23] MEDS: FUROSEMIDE 40 MG/4 ML VIAL IV SCH (18:30)
[2019-03-23 19:19] LABS: Arterial Blood Carboxyhemoglob 2.5 % (0-1.5); Blood O2 Saturation 76.4 % (92-98.5)
--- NOTE | 2019-03-23 19:26 | PN ---
Date of Progress Note: 03/23/2019 Subjective: Patient is seen and examined. Chart reviewed and case discussed with RN and Dr. Darlyn luis. Patient is doing well. No acute events overnight. Medications: List reviewed. Tolerating BiPAP well at night. Physical Examination: Vital Signs: Temperature 98.1, heart rate 104, blood pressure 151/84, respirations 17, O2 92% on 3 L via nasal cannula. General: Awake, alert, and oriented x3. Elderly male, obese, BMI 30. Slightly ill appearing. CV: S1, S2. Irregularly irregular. Peripheral pulses present. Respiratory: Diminished breath sounds. No wheezing or stridor. Minimal crackles heard. Gastrointestinal: Abdomen is soft, nontender, nondistended. Positive bowel sounds. No guarding or rigidity. Extremities: No clubbing, cyanosis. Patient has peripheral edema, bilateral lower extremities. Skin: Chronic venous stasis changes. Neurologic: Nonfocal. Laboratory Data: Sodium 141, potassium 4.1, chloride 99, CO2 of 40, BUN 10, creatinine 0.41, glucose 108, calcium 8.6, magnesium 1.9. WBC pending. Cultures are negative to date. Assessment And Plan: A 74-year-old male with: 1.Acute respiratory failure with hypoxia and hypercapnia, significantly improved. Patient now down to 3 L via nasal cannula. Continue CPAP at night. Appreciate Pulmonology input. Respiratory failur e was secondary to chronic obstructive pulmonary disease and congestive heart failure. 2.Acute chronic obstructive pulmonary disease exacerbation with hypoxia. Continue supplemental oxyg en, improved with nebulizer treatments and steroids. 3.Acute on chronic diastolic heart failure. Continue diuresis with Lasix. Continue Aldactone. Flu id balance is negative. Patient is down to 116 pounds from 04/15. 4.Cellulitis of the right upper extremity secondary to abrasion. Continue with vancomycin. Blood c ultures have been obtained, negative to date. Erythema slightly improved. 5.Atrial fibrillation, chronic, permanent. We will continue with rate control. 6.Moderate aortic stenosis. 7.Severe pulmonary hypertension. 8.Diabetes mellitus type 2, insulin dependent with hyperglycemia. We will continue to monitor blood glucose levels. Continue sliding scale insulin. 9.Status post kidney transplant, on immune modulating drugs. 10.Essential hypertension, stable. 11.Gastroesophageal reflux disease without esophagitis. Continue Protonix. 12.Obesity, BMI 30. Disposition: Transferred to long term facility once accepted. Patient is doing well clinicall y. SA/MODL Voice ID: [id number] Report ID: [id number]
[2019-03-23] MEDS: ROSUVASTATIN 10 MG TAB PO SCH (22:40)
[2019-03-24] MEDS: IPRATROPIUM BROM 0.5MG/2.5ML NEB SCH ×4 (01:20→20:30)
[2019-03-24 04:22] LABS: Absolute Lymphocytes (CBC) 0.5 K/uL (0.7-4.9); Basophils % 0.2 % (0-1.3); Hematocrit 34.1 % (39.6-49.0); Lymphocytes % 8.7 % (15.3-44.8); MPV 9.5 fL (7.6-11.3); RBC Red Blood Cell Count 4.53 M/uL (4.33-5.43)
[2019-03-24 04:38] LABS: ALT/SGPT 13 U/L (12-78); AST/SGOT 11 U/L (15-37); Albumin 2.7 g/dL (3.4-5.0); Alkaline Phosphatase 80 U/L (45-117); BUN Blood Urea Nitrogen 11 mg/dL (7-18); Bicarbonate 39 mmol/L (21-32); Bilirubin Total 0.5 mg/dL (0.2-1.0); Glucose Level 126 mg/dL (74-106); Potassium 3.9 mmol/L (3.5-5.1); Protein, Total 5.8 g/dL (6.4-8.2); Sodium Level 140 mmol/L (136-145)
[2019-03-24] MEDS: CEPHALEXIN 500 MG CAP PO SCH ×4 (06:00→18:00)
[2019-03-24] MEDS: FUROSEMIDE 40 MG/4 ML VIAL IV SCH ×2 (07:29→18:36)
[2019-03-24] MEDS: INSULIN -REGULAR HUMAN 50 UNIT/0.5 ML ML SQ SCH ×4 (07:30→21:00)
[2019-03-24] MEDS: DULOXETINE 30 MG CAP PO SCH (08:50)
[2019-03-24] MEDS: DIGOXIN 0.125 MG TABLET PO SCH (08:50)
[2019-03-24] MEDS: PANTOPRAZOLE 40MG TABLET PO SCH ×2 (08:51→21:17)
[2019-03-24] MEDS: allopurinoL 100 MG TAB PO SCH ×2 (08:51→21:18)
[2019-03-24] MEDS: SPIRONOLACTONE 25 MG TABLET PO SCH ×2 (08:51→21:18)
[2019-03-24] MEDS: SUCRALFATE 1 GM TABLET PO SCH ×4 (08:51→21:18)
[2019-03-24] MEDS: LABETALOL HCL 100 MG TAB PO SCH ×2 (08:53→21:18)
[2019-03-24] MEDS: APIXABAN 5 MG TABLET PO SCH ×2 (08:53→21:17)
[2019-03-24] MEDS: PRIMIDONE 50 MG TAB PO SCH ×3 (08:53→21:19)
[2019-03-24] MEDS: predniSONE 10 MG TAB PO SCH ×2 (08:56→21:17)
[2019-03-24] MEDS: HOME MED 1 EA UNK (Cyclosporine [Restasis] 1 DROP) EACH EYE SCH ×2 (08:56→21:00)
[2019-03-24] MEDS: IPRATROPIUM NAS SCH ×4 (08:57→21:00)
[2019-03-24] MEDS: TACROLIMUS 1 MG CAPSULE PO SCH ×2 (08:58→21:21)
[2019-03-24] MEDS: TAFLUPROST EACH EYE SCH (09:00)
[2019-03-24] MEDS ORDERED: POTASSIUM CL SA 10 MEQ TAB PO ONE (09:00)
[2019-03-24] MEDS: VANCOMYCIN 1.75 GM in NA CHLORIDE 0.9% 500 ML IVPB SCH ×2 (09:53→21:26)
[2019-03-24 11:55] LABS: Arterial Blood Carboxyhemoglob 2.5 % (0-1.5); Blood Gas Oxyhemoglobin 93.3 % (94-97); Blood O2 Saturation 96.2 % (92-98.5)
[2019-03-24] MEDS: MYCOPHENOLATE MOFETIL 500 MG PO SCH ×2 (12:21→22:36)
--- NOTE | 2019-03-24 15:16 | P.PN ---
Subjective Date of Service: 03/24/19 Chief Complaint: Chest congestion and weakness Patient was placed on BiPAP all night due to CO2 retention. He was on BiPAP this morning. Repeat ABG revealed no change in CO2 retention. PCO2 of 70s is probably patient's baseline. No recorded fever. He is normotensive. Physical Examination - Vital Signs Temperature: 97.1 F Blood Pressure: 118/70 Pulse: 96 Respirations: 12 Pulse Ox (%): 98 - Physical Exam General: Alert, In no apparent distress, Oriented x3 HEENT: Mucous membr. moist/pink Neck: Supple, JVD not distended Respiratory: Normal air movement, Crackles/rales (Bibasilar crackles) Cardiovascular: Normal S1 S2, Edema (Bilateral lower extremities), Irregular heart rate/rhythm Gastrointestinal: Normal bowel sounds, Soft and benign, Non-distended Musculoskeletal: Erythema, Other (Sutured wound on right forearm.) Integumentary: Erythema (Bilateral lower extremities), Venous stasis ulcer Neurological: Normal speech, Normal strength at 5/5 x4 extr Assessment And Plan - Current Problems (Diagnosis) (1) Acute on chronic respiratory failure with hypoxia and hypercapnia Current Visit: Yes Status: Acute (2) Acute on chronic diastolic (congestive) heart failure Current Visit: Yes Status: Acute (3) Atrial fibrillation Current Visit: No Status: Chronic Qualifiers: Atrial fibrillation type: longstanding persistent Qualified Code(s): I48.11 - Longstanding persistent atrial fibrillation (4) Diabetes Current Visit: No Status: Chronic Qualifiers: Diabetes mellitus type: type 2 Diabetes mellitus retirement insulin use: without retirement use Diabetes mellitus complication status: without complication Qualified Code(s): E11.9 - Type 2 diabetes mellitus without complications (5) Pulmonary hypertension Current Visit: No Status: Chronic (6) Status post kidney transplant Current Visit: No Status: Chronic (7) GERD (gastroesophageal reflux disease) Current Visit: Yes Status: Acute - Plan Continue BiPAP therapy. Noted patient uses CPAP at home. IV Lasix given worsening chest x-ray. Continue rate control medications for AFib Continue Apixaban. Noted thrombocytopenia and anemia. Monitor CBC closely. Supplemental oxygen as needed. Continue IV antibiotics given immunosuppressed state and follow wound culture. Local wound care. Continue renal transplant medications. PT and OT. Disposition to skilled rehab.
[2019-03-24] MEDS ORDERED: HUMALOG MIX 75/25 100 UNITS/ML SQ SCH (17:00)
[2019-03-24] MEDS: ROSUVASTATIN 10 MG TAB PO SCH (21:17)
[2019-03-25] MEDS: IPRATROPIUM BROM 0.5MG/2.5ML NEB SCH ×4 (02:10→19:40)
[2019-03-25 05:57] LABS: BUN Blood Urea Nitrogen 11 mg/dL (7-18); Bicarbonate 40 mmol/L (21-32); Glucose Level 114 mg/dL (74-106); Magnesium 1.5 mg/dL (1.8-2.4); Potassium 3.4 mmol/L (3.5-5.1); Sodium Level 141 mmol/L (136-145)
[2019-03-25] MEDS: CEPHALEXIN 500 MG CAP PO SCH ×4 (06:00→17:02)
[2019-03-25] MEDS: FUROSEMIDE 40 MG/4 ML VIAL IV SCH (06:07)
[2019-03-25] MEDS ORDERED: MAGNESIUM SULFATE 1 gm IVPB 1 GM/100 ML BAG IV ONE ×3 (07:00→09:00)
[2019-03-25] MEDS: INSULIN -REGULAR HUMAN 50 UNIT/0.5 ML ML SQ SCH ×4 (07:30→21:00)
[2019-03-25] MEDS ORDERED: POTASSIUM CL SA 10 MEQ TAB PO ONE (09:00)
[2019-03-25] MEDS: IPRATROPIUM NAS SCH ×4 (09:00→22:18)
[2019-03-25] MEDS: TAFLUPROST EACH EYE SCH (09:00)
[2019-03-25] MEDS: HOME MED 1 EA UNK (Cyclosporine [Restasis] 1 DROP) EACH EYE SCH ×2 (09:00→21:00)
[2019-03-25] MEDS: APIXABAN 5 MG TABLET PO SCH ×2 (09:14→22:17)
[2019-03-25] MEDS: DIGOXIN 0.125 MG TABLET PO SCH (09:14)
[2019-03-25] MEDS: DULOXETINE 30 MG CAP PO SCH (09:14)
[2019-03-25] MEDS: PANTOPRAZOLE 40MG TABLET PO SCH ×2 (09:14→22:16)
[2019-03-25] MEDS: SUCRALFATE 1 GM TABLET PO SCH ×4 (09:14→22:16)
[2019-03-25] MEDS: SPIRONOLACTONE 25 MG TABLET PO SCH ×2 (09:14→22:13)
[2019-03-25] MEDS: allopurinoL 100 MG TAB PO SCH ×2 (09:15→22:17)
[2019-03-25] MEDS: LABETALOL HCL 100 MG TAB PO SCH ×2 (09:15→22:16)
[2019-03-25] MEDS: predniSONE 10 MG TAB PO SCH ×2 (09:15→22:17)
[2019-03-25] MEDS: TACROLIMUS 1 MG CAPSULE PO SCH ×2 (09:16→22:19)
[2019-03-25] MEDS: PRIMIDONE 50 MG TAB PO SCH ×3 (09:17→22:17)
[2019-03-25] MEDS: VANCOMYCIN 1.75 GM in NA CHLORIDE 0.9% 500 ML IVPB SCH (09:20)
[2019-03-25] MEDS: MYCOPHENOLATE MOFETIL 500 MG PO SCH (11:57)
--- NOTE | 2019-03-25 12:50 | P.PN ---
Subjective Date of Service: 03/25/19 Chief Complaint: Chest congestion and weakness Patient has been using BiPAP at night. He is sickly looking. Blood pressure is stable. He is tolerating diet. It appears his anasarca has improved. No recorded fever. Physical Examination - Vital Signs Temperature: 97.1 F Blood Pressure: 128/76 Pulse: 90 Respirations: 13 Pulse Ox (%): 99 - Physical Exam General: Alert, In no apparent distress, Oriented x3 HEENT: Mucous membr. moist/pink Neck: Supple, JVD not distended Respiratory: Normal air movement, Crackles/rales (Bilateral) Cardiovascular: Regular rate/rhythm, Normal S1 S2 Gastrointestinal: Normal bowel sounds, Soft and benign, Non-distended, No tenderness Musculoskeletal: Erythema Integumentary: Erythema (Bilateral lower extremities) Neurological: Normal speech Assessment And Plan - Current Problems (Diagnosis) (1) Acute on chronic respiratory failure with hypoxia and hypercapnia Current Visit: Yes Status: Acute (2) Acute on chronic diastolic (congestive) heart failure Current Visit: Yes Status: Acute (3) Atrial fibrillation Current Visit: No Status: Chronic Qualifiers: Atrial fibrillation type: longstanding persistent Qualified Code(s): I48.11 - Longstanding persistent atrial fibrillation (4) Diabetes Current Visit: No Status: Chronic Qualifiers: Diabetes mellitus type: type 2 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 use: without superintendent marine oil terminal use Diabetes mellitus complication status: without complication Qualified Code(s): E11.9 - Type 2 diabetes mellitus without complications (5) Pulmonary hypertension Current Visit: No Status: Chronic (6) Status post kidney transplant Current Visit: No Status: Chronic (7) GERD (gastroesophageal reflux disease) Current Visit: Yes Status: Acute (8) Cor pulmonale Current Visit: Yes Status: Acute (9) Aortic stenosis Current Visit: No Status: Acute (10) COPD (chronic obstructive pulmonary disease) Current Visit: No Status: Acute (11) Pleural effusion Current Visit: No Status: Acute - Plan Continue BiPAP therapy. Noted patient uses CPAP at home. Transition to oral Lasix. Fluid restriction to 1500 ml per day Continue rate control medications for AFib Continue Apixaban. Noted thrombocytopenia and anemia. Monitor CBC closely. Supplemental oxygen as needed. Change IV antibiotics to oral Local wound care. Continue renal transplant medications. PT and OT. Disposition to skilled rehab. Sickly looking and generally poor prognosis.
[2019-03-25] MEDS: FUROSEMIDE 40 MG TABLET PO SCH (17:02)
[2019-03-25 18:57] LABS: Magnesium 1.9 mg/dL (1.8-2.4); Potassium 4.2 mmol/L (3.5-5.1)
[2019-03-25] MEDS: DOXYCYCLINE 100 MG CAP PO SCH (22:16)
[2019-03-25] MEDS: CHOLESTYRAMINE/ASP 4 GM/PKT PO PRN (22:17)
[2019-03-25] MEDS: ROSUVASTATIN 10 MG TAB PO SCH (22:17)
[2019-03-26] MEDS: MYCOPHENOLATE MOFETIL 500 MG PO SCH ×2 (00:09→11:21)
[2019-03-26] MEDS: IPRATROPIUM BROM 0.5MG/2.5ML NEB SCH ×4 (01:40→19:50)
[2019-03-26 04:16] LABS: Absolute Lymphocytes (CBC) 0.5 K/uL (0.7-4.9); Basophils % 1.1 % (0-1.3); Hematocrit 35.4 % (39.6-49.0); Lymphocytes % 4.9 % (15.3-44.8); MPV 10.1 fL (7.6-11.3); RBC Red Blood Cell Count 4.72 M/uL (4.33-5.43)
[2019-03-26 04:31] LABS: BUN Blood Urea Nitrogen 10 mg/dL (7-18); Bicarbonate 38 mmol/L (21-32); Glucose Level 121 mg/dL (74-106); Magnesium 1.8 mg/dL (1.8-2.4); Potassium 4.1 mmol/L (3.5-5.1); Sodium Level 138 mmol/L (136-145)
[2019-03-26 04:53] LABS: Anisocytosis 2+; Blood Morphology Comment NOTED (NOT SEEN); Platelet Estimate ADEQ; Urine White Blood Cell Casts OK
[2019-03-26] MEDS ORDERED: MAGNESIUM SULFATE 1 gm IVPB 1 GM/100 ML BAG IV ONE (06:37)
[2019-03-26] MEDS: CEPHALEXIN 500 MG CAP PO SCH ×4 (07:00→17:04)
[2019-03-26] MEDS: INSULIN -REGULAR HUMAN 50 UNIT/0.5 ML ML SQ SCH ×4 (07:30→21:00)
[2019-03-26] MEDS: SUCRALFATE 1 GM TABLET PO SCH ×4 (08:00→21:22)
[2019-03-26] MEDS: APIXABAN 5 MG TABLET PO SCH ×2 (08:46→21:22)
[2019-03-26] MEDS: DOXYCYCLINE 100 MG CAP PO SCH ×2 (08:46→21:22)
[2019-03-26] MEDS: DIGOXIN 0.125 MG TABLET PO SCH (08:46)
[2019-03-26] MEDS: DULOXETINE 30 MG CAP PO SCH (08:46)
[2019-03-26] MEDS: IPRATROPIUM NAS SCH ×4 (08:46→21:00)
[2019-03-26] MEDS: SPIRONOLACTONE 25 MG TABLET PO SCH ×2 (08:47→21:22)
[2019-03-26] MEDS: LABETALOL HCL 100 MG TAB PO SCH ×2 (08:47→21:22)
[2019-03-26] MEDS: allopurinoL 100 MG TAB PO SCH ×2 (08:47→21:22)
[2019-03-26] MEDS: FUROSEMIDE 40 MG TABLET PO SCH ×2 (08:48→16:01)
[2019-03-26] MEDS: PANTOPRAZOLE 40MG TABLET PO SCH ×2 (08:48→21:21)
[2019-03-26] MEDS: predniSONE 10 MG TAB PO SCH ×2 (08:49→21:22)
[2019-03-26] MEDS: HOME MED 1 EA UNK (Cyclosporine [Restasis] 1 DROP) EACH EYE SCH ×2 (08:49→21:00)
[2019-03-26] MEDS: TACROLIMUS 1 MG CAPSULE PO SCH ×2 (08:51→21:24)
[2019-03-26] MEDS: PRIMIDONE 50 MG TAB PO SCH ×3 (08:53→21:22)
[2019-03-26] MEDS: TAFLUPROST EACH EYE SCH (08:53)
[2019-03-26] MEDS: HYDROCODONE/APAP 7.5/325 MG TAB PO PRN (11:06)
--- NOTE | 2019-03-26 15:35 | P.PN ---
Subjective Date of Service: 03/26/19 Chief Complaint: Chest congestion and weakness No new complaint. Patient has been tolerating BIPAP. Blood pressure is stable. He is tolerating diet. It appears his anasarca has improved. He has regular bowel movement. He is tolerating oxygen by nasal cannula. He stated his breathing is better today. Physical Examination - Vital Signs Temperature: 99.2 F Blood Pressure: 126/68 Pulse: 95 Respirations: 20 Pulse Ox (%): 95 - Physical Exam General: Alert, In no apparent distress, Oriented x3 HEENT: Mucous membr. moist/pink, Sclerae nonicteric Neck: Supple, JVD not distended Respiratory: Diminished, Crackles/rales (Mild bibasilar crackles) Cardiovascular: Normal S1 S2, Irregular heart rate/rhythm Gastrointestinal: Normal bowel sounds, Soft and benign, No tenderness Integumentary: Other (Bilateral lower extremity venostasis dermatitis and hemosiderin stain.) Neurological: Normal speech, Other (Globally weak.) Assessment And Plan - Current Problems (Diagnosis) (1) Acute on chronic respiratory failure with hypoxia and hypercapnia Current Visit: Yes Status: Acute (2) Acute on chronic diastolic (congestive) heart failure Current Visit: Yes Status: Acute (3) Atrial fibrillation Current Visit: No Status: Chronic Qualifiers: Atrial fibrillation type: longstanding persistent Qualified Code(s): I48.11 - Longstanding persistent atrial fibrillation (4) Diabetes Current Visit: No Status: Chronic Qualifiers: Diabetes mellitus type: type 2 Diabetes mellitus 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 Diabetes mellitus complication status: without complication Qualified Code(s): E11.9 - Type 2 diabetes mellitus without complications (5) Pulmonary hypertension Current Visit: No Status: Chronic (6) Status post kidney transplant Current Visit: No Status: Chronic (7) GERD (gastroesophageal reflux disease) Current Visit: Yes Status: Acute (8) Cor pulmonale Current Visit: Yes Status: Acute (9) Aortic stenosis Current Visit: No Status: Acute (10) COPD (chronic obstructive pulmonary disease) Current Visit: No Status: Acute (11) Pleural effusion Current Visit: No Status: Acute - Plan I believe patient has reached maximum hospital benefit. Continue BiPAP therapy. Continue oral Lasix. Fluid restriction to 1500 ml per day Continue rate control medications for AFib Continue Apixaban. Noted thrombocytopenia and anemia which are stable.. Supplemental oxygen as needed. Continue oral doxycycline Local wound care. Continue renal transplant medications. PT and OT. Disposition to skilled rehab. Awaiting placement.
[2019-03-26] MEDS: ROSUVASTATIN 10 MG TAB PO SCH (21:22)
[2019-03-26] MEDS: CHOLESTYRAMINE/ASP 4 GM/PKT PO PRN (21:23)
[2019-03-26] MEDS: ACETAMINOPHEN 500 MG TAB PO PRN (21:26)
[2019-03-27] MEDS: MYCOPHENOLATE MOFETIL 500 MG PO SCH ×3 (01:30→23:31)
[2019-03-27] MEDS: IPRATROPIUM BROM 0.5MG/2.5ML NEB SCH ×4 (02:05→20:50)
[2019-03-27 05:47] LABS: BUN Blood Urea Nitrogen 14 mg/dL (7-18); Bicarbonate 40 mmol/L (21-32); Glucose Level 115 mg/dL (74-106); Magnesium 1.8 mg/dL (1.8-2.4); Potassium 3.8 mmol/L (3.5-5.1); Sodium Level 136 mmol/L (136-145)
[2019-03-27] MEDS: CEPHALEXIN 500 MG CAP PO SCH ×5 (06:00→23:32)
[2019-03-27] MEDS ORDERED: POTASSIUM 25 MEQ EFFERV TAB PO ONE (07:00)
[2019-03-27] MEDS ORDERED: MAGNESIUM SULFATE 1 gm IVPB 1 GM/100 ML BAG IV ONE (07:00)
[2019-03-27] MEDS: INSULIN -REGULAR HUMAN 50 UNIT/0.5 ML ML SQ SCH ×4 (07:30→20:43)
[2019-03-27] MEDS ORDERED: PANTOPRAZOLE 40MG TABLET PO SCH (07:30)
[2019-03-27] MEDS: ALBUTEROL 2.5 MG/3 ML NEB SOL NEB PRN (08:39)
[2019-03-27] MEDS: HOME MED 1 EA UNK (Cyclosporine [Restasis] 1 DROP) EACH EYE SCH ×2 (09:00→20:43)
[2019-03-27] MEDS: TAFLUPROST EACH EYE SCH (09:00)
[2019-03-27] MEDS: IPRATROPIUM NAS SCH ×5 (09:00→20:43)
[2019-03-27] MEDS: APIXABAN 5 MG TABLET PO SCH ×2 (09:26→20:35)
[2019-03-27] MEDS: DOXYCYCLINE 100 MG CAP PO SCH ×2 (09:26→20:41)
[2019-03-27] MEDS: DIGOXIN 0.125 MG TABLET PO SCH (09:26)
[2019-03-27] MEDS: PANTOPRAZOLE 40MG TABLET PO SCH ×2 (09:27→20:35)
[2019-03-27] MEDS: SUCRALFATE 1 GM TABLET PO SCH ×4 (09:27→20:36)
[2019-03-27] MEDS: DULOXETINE 30 MG CAP PO SCH (09:27)
[2019-03-27] MEDS: allopurinoL 100 MG TAB PO SCH ×2 (09:28→20:40)
[2019-03-27] MEDS: SPIRONOLACTONE 25 MG TABLET PO SCH ×2 (09:28→20:39)
[2019-03-27] MEDS: FUROSEMIDE 40 MG TABLET PO SCH ×2 (09:28→16:26)
[2019-03-27] MEDS: LABETALOL HCL 100 MG TAB PO SCH ×2 (09:38→20:39)
[2019-03-27] MEDS: PRIMIDONE 50 MG TAB PO SCH ×3 (09:39→20:40)
[2019-03-27] MEDS: TACROLIMUS 1 MG CAPSULE PO SCH ×2 (09:47→20:41)
--- NOTE | 2019-03-27 12:23 | P.PN ---
Subjective Date of Service: 03/27/19 Chief Complaint: Chest congestion and weakness No new complaint. Nursing staff report patient has been tolerating BiPAP better than the CPAP. Blood pressure is stable. He is eating well. His anasarca has improved. He has regular bowel movement. He is tolerating oxygen by nasal cannula. Physical Examination - Vital Signs Temperature: 98 F Blood Pressure: 130/77 Pulse: 109 Respirations: 31 Pulse Ox (%): 99 - Physical Exam General: Alert, In no apparent distress, Oriented x3 HEENT: Mucous membr. moist/pink, Sclerae nonicteric (Mild scattered rales) Neck: Supple, JVD not distended Respiratory: Normal air movement Cardiovascular: Normal S1 S2, Edema (Bilateral lower extremity edema), Irregular heart rate/rhythm Gastrointestinal: Normal bowel sounds, Soft and benign, No tenderness Musculoskeletal: Other (Bilateral lower extremity lymphedema.) Integumentary: Other (Bilateral lower extremity venostasis dermatitis and hemosiderin staining) Neurological: Other (Nonfocal) Assessment And Plan - Current Problems (Diagnosis) (1) Acute on chronic respiratory failure with hypoxia and hypercapnia Current Visit: Yes Status: Acute (2) Acute on chronic diastolic (congestive) heart failure Current Visit: Yes Status: Acute (3) Atrial fibrillation Current Visit: No Status: Chronic Qualifiers: Atrial fibrillation type: longstanding persistent Qualified Code(s): I48.11 - Longstanding persistent atrial fibrillation (4) Diabetes Current Visit: No Status: Chronic Qualifiers: Diabetes mellitus type: type 2 Diabetes mellitus manager intermediate insulin use: without manager intermediate use Diabetes mellitus complication status: without complication Qualified Code(s): E11.9 - Type 2 diabetes mellitus without complications (5) Pulmonary hypertension Current Visit: No Status: Chronic (6) Status post kidney transplant Current Visit: No Status: Chronic (7) GERD (gastroesophageal reflux disease) Current Visit: Yes Status: Acute (8) Cor pulmonale Current Visit: Yes Status: Acute (9) Aortic stenosis Current Visit: No Status: Acute (10) COPD (chronic obstructive pulmonary disease) Current Visit: No Status: Acute (11) Pleural effusion Current Visit: No Status: Acute - Plan Patient has reached maximum hospital benefit. Continue BiPAP therapy. Continue oral Lasix. Fluid restriction to 1500 ml per day Continue rate control medications for AFib Continue Apixaban. Noted thrombocytopenia and anemia which are stable.. Supplemental oxygen. Continue oral doxycycline Local wound care. Continue renal transplant medications. PT and OT. Disposition to skilled rehab. Awaiting placement.
[2019-03-27] MEDS: ROSUVASTATIN 10 MG TAB PO SCH (20:36)
[2019-03-28] MEDS: IPRATROPIUM BROM 0.5MG/2.5ML NEB SCH ×4 (02:25→20:23)
[2019-03-28] MEDS: CEPHALEXIN 500 MG CAP PO SCH ×3 (05:29→18:00)
[2019-03-28 05:30] LABS: BUN Blood Urea Nitrogen 13 mg/dL (7-18); Glucose Level 101 mg/dL (74-106); Magnesium 1.7 mg/dL (1.8-2.4); Potassium 3.4 mmol/L (3.5-5.1); Sodium Level 138 mmol/L (136-145)
[2019-03-28 05:32] LABS: Bicarbonate 41 mmol/L (21-32)
[2019-03-28] MEDS ORDERED: MAGNESIUM SULFATE 1 gm IVPB 1 GM/100 ML BAG IV ONE (05:35)
[2019-03-28] MEDS: INSULIN -REGULAR HUMAN 50 UNIT/0.5 ML ML SQ SCH ×4 (07:30→21:00)
[2019-03-28] MEDS: ALBUTEROL 2.5 MG/3 ML NEB SOL NEB PRN ×2 (07:55→13:15)
[2019-03-28] MEDS: IPRATROPIUM NAS SCH ×4 (09:00→22:09)
[2019-03-28] MEDS: TAFLUPROST EACH EYE SCH (09:00)
[2019-03-28] MEDS: HOME MED 1 EA UNK (Cyclosporine [Restasis] 1 DROP) EACH EYE SCH ×2 (09:00→21:00)
[2019-03-28] MEDS ORDERED: POTASSIUM 25 MEQ EFFERV TAB PO ONE (09:00)
[2019-03-28] MEDS: DOXYCYCLINE 100 MG CAP PO SCH ×2 (09:30→22:08)
[2019-03-28] MEDS: SUCRALFATE 1 GM TABLET PO SCH ×4 (09:30→22:08)
[2019-03-28] MEDS: PANTOPRAZOLE 40MG TABLET PO SCH ×2 (09:30→22:19)
[2019-03-28] MEDS: FUROSEMIDE 40 MG TABLET PO SCH ×2 (09:30→17:18)
[2019-03-28] MEDS: APIXABAN 5 MG TABLET PO SCH ×2 (09:31→22:08)
[2019-03-28] MEDS: DIGOXIN 0.125 MG TABLET PO SCH (09:31)
[2019-03-28] MEDS: LABETALOL HCL 100 MG TAB PO SCH ×2 (09:39→22:07)
[2019-03-28] MEDS: DULOXETINE 30 MG CAP PO SCH (09:39)
[2019-03-28] MEDS: PRIMIDONE 50 MG TAB PO SCH ×3 (09:39→22:09)
[2019-03-28] MEDS: allopurinoL 100 MG TAB PO SCH ×2 (09:39→22:20)
[2019-03-28] MEDS: SPIRONOLACTONE 25 MG TABLET PO SCH ×2 (09:39→22:07)
[2019-03-28] MEDS: TACROLIMUS 1 MG CAPSULE PO SCH ×2 (09:41→22:10)
[2019-03-28] MEDS: MYCOPHENOLATE MOFETIL 500 MG PO SCH ×2 (11:59→23:47)
--- NOTE | 2019-03-28 12:48 | P.PN ---
Subjective Date of Service: 03/28/19 Chief Complaint: Chest congestion and weakness No new complaint. No major changes from yesterday. Patient has been using BiPAP at night. He is now requiring less oxygen-2 liters/minute NC. He is eating well. His anasarca has improved. Physical Examination - Vital Signs Temperature: 97.8 F Blood Pressure: 109/66 Pulse: 93 Respirations: 14 Pulse Ox (%): 92 - Physical Exam General: Alert, In no apparent distress HEENT: Mucous membr. moist/pink, Sclerae nonicteric Neck: Supple, JVD not distended Respiratory: Crackles/rales (Bilateral) Cardiovascular: Normal S1 S2, Edema (Lower extremities-significantly improved.) , Irregular heart rate/rhythm Gastrointestinal: Normal bowel sounds, Soft and benign, No tenderness Neurological: Other (Globally weak) Assessment And Plan - Current Problems (Diagnosis) (1) Acute on chronic respiratory failure with hypoxia and hypercapnia Current Visit: Yes Status: Acute (2) Acute on chronic diastolic (congestive) heart failure Current Visit: Yes Status: Acute (3) Atrial fibrillation Current Visit: No Status: Chronic Qualifiers: Atrial fibrillation type: longstanding persistent Qualified Code(s): I48.11 - Longstanding persistent atrial fibrillation (4) Diabetes Current Visit: No Status: Chronic Qualifiers: Diabetes mellitus type: type 2 Diabetes mellitus detention insulin use: without detention use Diabetes mellitus complication status: without complication Qualified Code(s): E11.9 - Type 2 diabetes mellitus without complications (5) Pulmonary hypertension Current Visit: No Status: Chronic (6) Status post kidney transplant Current Visit: No Status: Chronic (7) GERD (gastroesophageal reflux disease) Current Visit: Yes Status: Acute (8) Cor pulmonale Current Visit: Yes Status: Acute (9) Aortic stenosis Current Visit: No Status: Acute (10) COPD (chronic obstructive pulmonary disease) Current Visit: No Status: Acute (11) Pleural effusion Current Visit: No Status: Acute - Plan Patient has reached maximum hospital benefit. Continue BiPAP therapy during sleep. Continue oral Lasix. Fluid restriction to 1500 ml per day. Renal function is stable with the lasix. Continue rate control medications for AFib Continue Apixaban. Noted thrombocytopenia and anemia which are stable. Supplemental oxygen. Continue oral doxycycline Local wound care. Continue renal transplant medications. PT and OT. Disposition to skilled rehab. Awaiting placement.
[2019-03-28] MEDS: ROSUVASTATIN 10 MG TAB PO SCH (22:19)
[2019-03-29] MEDS: IPRATROPIUM BROM 0.5MG/2.5ML NEB SCH ×4 (01:35→20:09)
[2019-03-29 05:19] LABS: BUN Blood Urea Nitrogen 14 mg/dL (7-18); Glucose Level 99 mg/dL (74-106); Magnesium 1.7 mg/dL (1.8-2.4); Potassium 3.7 mmol/L (3.5-5.1); Sodium Level 138 mmol/L (136-145)
[2019-03-29 05:50] LABS: Bicarbonate 41 mmol/L (21-32)
[2019-03-29] MEDS: CEPHALEXIN 500 MG CAP PO SCH ×5 (06:00→23:37)
[2019-03-29] MEDS ORDERED: MAGNESIUM SULFATE 1 gm IVPB 1 GM/100 ML BAG IV ONE (06:06)
[2019-03-29] MEDS: INSULIN -REGULAR HUMAN 50 UNIT/0.5 ML ML SQ SCH ×4 (07:30→20:30)
[2019-03-29] MEDS: ALBUTEROL 2.5 MG/3 ML NEB SOL NEB PRN ×2 (07:30→13:45)
[2019-03-29] MEDS: TAFLUPROST EACH EYE SCH (09:00)
[2019-03-29] MEDS: IPRATROPIUM NAS SCH ×4 (09:00→20:30)
[2019-03-29] MEDS: HOME MED 1 EA UNK (Cyclosporine [Restasis] 1 DROP) EACH EYE SCH ×2 (09:00→20:30)
[2019-03-29] MEDS ORDERED: POTASSIUM CL SA 10 MEQ TAB PO ONE (09:00)
[2019-03-29] MEDS: DOXYCYCLINE 100 MG CAP PO SCH ×2 (09:18→20:29)
[2019-03-29] MEDS: DIGOXIN 0.125 MG TABLET PO SCH (09:18)
[2019-03-29] MEDS: SPIRONOLACTONE 25 MG TABLET PO SCH ×2 (09:18→20:29)
[2019-03-29] MEDS: SUCRALFATE 1 GM TABLET PO SCH ×4 (09:18→20:29)
[2019-03-29] MEDS: PRIMIDONE 50 MG TAB PO SCH ×3 (09:18→20:29)
[2019-03-29] MEDS: LABETALOL HCL 100 MG TAB PO SCH ×2 (09:19→20:29)
[2019-03-29] MEDS: APIXABAN 5 MG TABLET PO SCH ×2 (09:19→20:29)
[2019-03-29] MEDS: FUROSEMIDE 40 MG TABLET PO SCH ×2 (09:19→17:03)
[2019-03-29] MEDS: allopurinoL 100 MG TAB PO SCH ×2 (09:19→20:29)
[2019-03-29] MEDS: DULOXETINE 30 MG CAP PO SCH (09:19)
[2019-03-29] MEDS: TACROLIMUS 1 MG CAPSULE PO SCH ×2 (09:20→20:31)
[2019-03-29] MEDS: PANTOPRAZOLE 40MG TABLET PO SCH ×2 (09:20→20:30)
--- NOTE | 2019-03-29 11:39 | P.PN ---
Subjective Date of Service: 03/29/19 Chief Complaint: Chest congestion and weakness No new complaint. No major changes from yesterday. Patient is awaiting placement in skilled rehab. He is tolerating 2 liters/minute NC. He is eating well. His anasarca has improved. Physical Examination - Vital Signs Temperature: 97.3 F Blood Pressure: 129/75 Pulse: 95 Respirations: 15 Pulse Ox (%): 96 - Physical Exam General: In no apparent distress, Other (Awake) HEENT: Mucous membr. moist/pink Neck: Supple Respiratory: Crackles/rales, Other (Reduced breathing excursions.) Cardiovascular: Normal S1 S2, Irregular heart rate/rhythm Gastrointestinal: Normal bowel sounds, Soft and benign, No tenderness Integumentary: Other (Dressed right forearm wound.) Neurological: Other (H moves all extremities spontaneously.) Assessment And Plan - Current Problems (Diagnosis) (1) Acute on chronic respiratory failure with hypoxia and hypercapnia Current Visit: Yes Status: Acute (2) Acute on chronic diastolic (congestive) heart failure Current Visit: Yes Status: Acute (3) Atrial fibrillation Current Visit: No Status: Chronic Qualifiers: Atrial fibrillation type: longstanding persistent Qualified Code(s): I48.11 - Longstanding persistent atrial fibrillation (4) Diabetes Current Visit: No Status: Chronic Qualifiers: Diabetes mellitus type: type 2 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 use: without alf use Diabetes mellitus complication status: without complication Qualified Code(s): E11.9 - Type 2 diabetes mellitus without complications (5) Pulmonary hypertension Current Visit: No Status: Chronic (6) Status post kidney transplant Current Visit: No Status: Chronic (7) GERD (gastroesophageal reflux disease) Current Visit: Yes Status: Acute (8) Cor pulmonale Current Visit: Yes Status: Acute (9) Aortic stenosis Current Visit: No Status: Acute (10) COPD (chronic obstructive pulmonary disease) Current Visit: No Status: Acute (11) Pleural effusion Current Visit: No Status: Acute - Plan Continue BiPAP therapy during sleep. Multiple medical problems at baseline. Continue oral Lasix. Fluid restriction to 1500 ml per day. Renal function is stable with the lasix. Continue rate control medications for AFib Continue Apixaban. Noted thrombocytopenia and anemia which are stable. Supplemental oxygen. Continue oral doxycycline Local wound care. Continue renal transplant medications. PT and OT. Poor prognosis Disposition to skilled rehab. Awaiting placement.
[2019-03-29] MEDS: MYCOPHENOLATE MOFETIL 500 MG PO SCH ×2 (12:05→23:37)
[2019-03-29] MEDS: ROSUVASTATIN 10 MG TAB PO SCH (20:29)
[2019-03-30] MEDS: IPRATROPIUM BROM 0.5MG/2.5ML NEB SCH ×4 (02:19→19:45)
[2019-03-30] MEDS: CEPHALEXIN 500 MG CAP PO SCH ×4 (05:30→23:48)
[2019-03-30 05:47] LABS: BUN Blood Urea Nitrogen 11 mg/dL (7-18); Bicarbonate 37 mmol/L (21-32); Glucose Level 95 mg/dL (74-106); Magnesium 1.6 mg/dL (1.8-2.4); Potassium 4.3 mmol/L (3.5-5.1); Sodium Level 136 mmol/L (136-145)
[2019-03-30 07:19] LABS: Absolute Lymphocytes (CBC) 0.8 K/uL (0.7-4.9); Hematocrit 35.3 % (39.6-49.0); Lymphocytes % 11.9 % (15.3-44.8); MPV 9.4 fL (7.6-11.3); RBC Red Blood Cell Count 4.66 M/uL (4.33-5.43)
[2019-03-30] MEDS: INSULIN -REGULAR HUMAN 50 UNIT/0.5 ML ML SQ SCH ×4 (07:30→21:00)
[2019-03-30] MEDS: TACROLIMUS 1 MG CAPSULE PO SCH ×2 (07:57→20:51)
[2019-03-30] MEDS: PANTOPRAZOLE 40MG TABLET PO SCH ×2 (07:58→20:53)
[2019-03-30] MEDS: SUCRALFATE 1 GM TABLET PO SCH ×4 (07:58→20:53)
[2019-03-30] MEDS: PRIMIDONE 50 MG TAB PO SCH ×3 (07:58→20:51)
[2019-03-30] MEDS: DULOXETINE 30 MG CAP PO SCH (07:58)
[2019-03-30] MEDS: IPRATROPIUM NAS SCH ×4 (07:59→21:00)
[2019-03-30] MEDS: FUROSEMIDE 40 MG TABLET PO SCH ×2 (07:59→16:50)
[2019-03-30] MEDS: APIXABAN 5 MG TABLET PO SCH ×2 (08:00→20:52)
[2019-03-30] MEDS: DIGOXIN 0.125 MG TABLET PO SCH (08:00)
[2019-03-30] MEDS: SPIRONOLACTONE 25 MG TABLET PO SCH ×2 (08:00→20:52)
[2019-03-30] MEDS: allopurinoL 100 MG TAB PO SCH ×2 (08:00→20:53)
[2019-03-30] MEDS: LABETALOL HCL 100 MG TAB PO SCH ×2 (08:00→20:52)
[2019-03-30] MEDS ORDERED: MAGNESIUM SULFATE 1 gm IVPB 1 GM/100 ML BAG IV ONE (08:00)
[2019-03-30] MEDS: TAFLUPROST EACH EYE SCH (08:01)
[2019-03-30] MEDS: DOXYCYCLINE 100 MG CAP PO SCH ×2 (08:01→20:53)
[2019-03-30] MEDS: HOME MED 1 EA UNK (Cyclosporine [Restasis] 1 DROP) EACH EYE SCH ×2 (08:01→21:00)
[2019-03-30 09:28] LABS: Anisocytosis 2+; Blood Morphology Comment NOTED (NOT SEEN); Platelet Estimate ADEQ
[2019-03-30 09:29] LABS: Ovalocytes 1+
[2019-03-30] MEDS: MYCOPHENOLATE MOFETIL 500 MG PO SCH ×2 (11:45→23:48)
--- NOTE | 2019-03-30 18:54 | P.PN ---
Subjective Date of Service: 03/30/19 Chief Complaint: Chest congestion and weakness No new complaint. No major changes. Patient is awaiting placement in skilled rehab. He is tolerating 2 liters/minute NC. He is eating well. Physical Examination - Vital Signs Temperature: 98.3 F Blood Pressure: 122/72 Pulse: 87 Respirations: 18 Pulse Ox (%): 99 - Physical Exam General: In no apparent distress, Cooperative HEENT: Mucous membr. moist/pink Neck: Supple, JVD not distended Respiratory: Crackles/rales (Bilateral crackles) Cardiovascular: No edema, Normal S1 S2, Irregular heart rate/rhythm Gastrointestinal: Normal bowel sounds, Soft and benign, Non-distended, No tenderness Integumentary: Other (Dressed right upper extremity wound) Assessment And Plan - Current Problems (Diagnosis) (1) Acute on chronic respiratory failure with hypoxia and hypercapnia Current Visit: Yes Status: Acute (2) Acute on chronic diastolic (congestive) heart failure Current Visit: Yes Status: Acute (3) Atrial fibrillation Current Visit: No Status: Chronic Qualifiers: Atrial fibrillation type: longstanding persistent Qualified Code(s): I48.11 - Longstanding persistent atrial fibrillation (4) Diabetes Current Visit: No Status: Chronic Qualifiers: Diabetes mellitus type: type 2 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 insulin use: without longwall shearer operator use Diabetes mellitus complication status: without complication Qualified Code(s): E11.9 - Type 2 diabetes mellitus without complications (5) Pulmonary hypertension Current Visit: No Status: Chronic (6) Status post kidney transplant Current Visit: No Status: Chronic (7) GERD (gastroesophageal reflux disease) Current Visit: Yes Status: Acute (8) Cor pulmonale Current Visit: Yes Status: Acute (9) Aortic stenosis Current Visit: No Status: Acute (10) COPD (chronic obstructive pulmonary disease) Current Visit: No Status: Acute (11) Pleural effusion Current Visit: No Status: Acute - Plan Patient has clinically improved and reached maximum hospital benefit. Multiple medical problems at baseline. Continue BiPAP therapy during sleep. Continue oral Lasix. Fluid restriction to 1500 ml per day. Renal function is stable with the lasix. Continue rate control medications for AFib Continue Apixaban. Noted thrombocytopenia and anemia which are stable. Supplemental oxygen. Continue oral doxycycline Local wound care. Continue renal transplant medications. PT and OT. Poor prognosis Daughter update on clinical condition Disposition to skilled rehab. Awaiting insurance authorization for placement.
[2019-03-30] MEDS: ROSUVASTATIN 10 MG TAB PO SCH (20:53)
[2019-03-31] MEDS: IPRATROPIUM BROM 0.5MG/2.5ML NEB SCH ×3 (01:35→14:14)
[2019-03-31] MEDS: CEPHALEXIN 500 MG CAP PO SCH (05:14)
[2019-03-31 05:29] VITALS: BMI 29.0
[2019-03-31] MEDS: INSULIN -REGULAR HUMAN 50 UNIT/0.5 ML ML SQ SCH ×3 (07:30→16:30)
[2019-03-31] MEDS: DIGOXIN 0.125 MG TABLET PO SCH (07:41)
[2019-03-31] MEDS: DULOXETINE 30 MG CAP PO SCH (07:41)
[2019-03-31] MEDS: APIXABAN 5 MG TABLET PO SCH (07:41)
[2019-03-31] MEDS: PANTOPRAZOLE 40MG TABLET PO SCH (07:41)
[2019-03-31] MEDS: allopurinoL 100 MG TAB PO SCH (07:42)
[2019-03-31] MEDS: SPIRONOLACTONE 25 MG TABLET PO SCH (07:42)
[2019-03-31] MEDS: LABETALOL HCL 100 MG TAB PO SCH (07:42)
[2019-03-31] MEDS: SUCRALFATE 1 GM TABLET PO SCH ×3 (07:43→16:44)
[2019-03-31] MEDS: IPRATROPIUM NAS SCH ×3 (07:43→16:53)
[2019-03-31] MEDS: FUROSEMIDE 40 MG TABLET PO SCH ×2 (07:43→16:44)
[2019-03-31] MEDS: HOME MED 1 EA UNK (Cyclosporine [Restasis] 1 DROP) EACH EYE SCH (07:43)
[2019-03-31] MEDS: TACROLIMUS 1 MG CAPSULE PO SCH (07:44)
[2019-03-31] MEDS: PRIMIDONE 50 MG TAB PO SCH ×2 (07:44→13:46)
[2019-03-31] MEDS: TAFLUPROST EACH EYE SCH (07:46)
[2019-03-31] MEDS: DOXYCYCLINE 100 MG CAP PO SCH (07:55)
[2019-03-31 08:42] LABS: BUN Blood Urea Nitrogen 10 mg/dL (7-18); Bicarbonate 38 mmol/L (21-32); Glucose Level 115 mg/dL (74-106); Magnesium 1.7 mg/dL (1.8-2.4); Potassium 3.9 mmol/L (3.5-5.1); Sodium Level 137 mmol/L (136-145)
[2019-03-31] MEDS ORDERED: POTASSIUM CL SA 10 MEQ TAB PO ONE (08:48)
[2019-03-31] MEDS ORDERED: MAGNESIUM SULFATE 1 gm IVPB 1 GM/100 ML BAG IV ONE (08:49)
[2019-03-31] MEDS: ACETAMINOPHEN 500 MG TAB PO PRN (09:52)
[2019-03-31] MEDS: MYCOPHENOLATE MOFETIL 500 MG PO SCH (11:57)
[2019-03-31 16:33] VITALS: BP 138/82; TEMP 97.3
[2019-03-31 16:55] VITALS: O2SAT 97
--- NOTE | 2019-03-31 18:40 | PN ---
Date of Progress Note: 03/31/2019 Subjective: Patient seen and examined. Chart reviewed and case discussed with RN. Patient denies any acute events overnight. No complaints. Medications list reviewed. Code status do not resuscitate. Advanced care planning discussed with the patient. Physical Examination: Vital Signs: Temperature 97, heart rate 99, blood pressure 142/89, respirations 16, O2 96% on 3 L via nasal cannula. General: Awake, alert, oriented x3, elderly male, not in any acute distress, ill-appearing. CV: S1, S2, irregularly irregular. Peripheral pulses weak. Respiratory: Diminished breath sounds. No wheezing or stridor. Gastrointestinal: Abdomen is soft, nontender, nondistended. Positive bowel sounds. No guarding or rigidity. Extremities: No clubbing or cyanosis. Patient has lower extremity edema. Skin: Chronic venous stasis changes. Neurologic: Nonfocal. Laboratory Data: Sodium 137, potassium 3.9, chloride 95, CO2 38, BUN 10, creatinine 0.39, glucose 115, magnesium 1.7, calcium 8.7. Blood cultures, no growth to date. Assessment: A 74-year-old male with: 1. Acute on chronic respiratory failure with hypoxia and hypercapnia, improving, currently on 3 L via nasal cannula secondary to congestive heart failure and chronic obstructive pulmonary disease. 2. Acute diastolic heart failure exacerbation, acute on chronic exacerbation, improving. We will continue with fluid restriction monitoring I's and O's. Continue diuretics. 3. Acute chronic obstructive pulmonary disease exacerbation, improved with nebulizer treatments and steroids. 4. Atrial fibrillation, chronic permanent. We will continue with rate control. Patient is on Eliquis. 5. Diabetes mellitus type 2 without long-term use of insulin with hyperglycemia. We will continue with sliding scale insulin. Monitor blood glucose levels. 6. Pulmonary hypertension. 7. Status post kidney transplant, on immunosuppressants. 8. Gastroesophageal reflux disease without esophagitis. 9. Right upper extremity cellulitis secondary to abrasion, improved with IV antibiotics. 10. Gastroesophageal reflux disease without esophagitis, stable. 11. Cor pulmonale. 12. Aortic stenosis. 13. Pleural effusion. Plan: Disposition is skilled rehab placement once accepted. Awaiting insurance authorization. Continue PT, OT. Patient currently on oral doxy. SA/MODL Voice ID: [id number] Report ID: [id number]
--- NOTE | 2019-04-01 02:04 | DS ---
Date of Discharge: 03/31/2019 Consultants: Dr. Kitchen with Pulmonology. Admitting Diagnoses: 1. Acute respiratory failure with hypoxia and hypercapnia. 2. Acute chronic obstructive pulmonary disease exacerbation. 3. Acute on chronic diastolic heart failure. 4. Atrial fibrillation, chronic, permanent. 5. Moderate aortic stenosis. 6. Diabetes mellitus type 2 insulin requiring with hyperglycemia. 7. Essential hypertension. 8. Gastroesophageal reflux disease without esophagitis. 9. Severe pulmonary hypertension. 10. Obesity, BMI 30. Discharge Diagnoses: 1. Acute on chronic respiratory failure with hypoxia and hypercapnia. 2. Acute chronic obstructive pulmonary disease exacerbation. 3. Acute on chronic diastolic heart failure, improved. 4. Atrial fibrillation, chronic, permanent. 5. Diabetes mellitus type 2, insulin requiring with hyperglycemia. 6. Pulmonary hypertension. 7. Status post kidney transplant on immunosuppressants. 8. Gastroesophageal reflux disease without esophagitis. 9. Cor pulmonale. 10. Aortic stenosis. 11. Pleural effusion. 12. Obesity, BMI of 30. Hospital Course: The patient is a 74-year-old male with significant past medical history of COPD, atrial fibrillation on blood thinners, congestive heart failure, kidney transplant, on immunosuppressant therapy, comes in with shortness of breath. Patient is a resident of [facility] and was also taking care of his . Patient did have a fall. He also had some abrasions on his left upper extremity, required stitches, and subsequently developed cellulitis of that upper extremity, which was treated with IV antibiotics and improved. Regarding his respiratory failure, this was secondary to chronic obstructive pulmonary disease and congestive heart failure. Patient was started on diuretics and nebulizer treatments as well as steroids. Dr. Kitchen with Pulmonology was also consulted. His recent echocardiogram from January 2019, showed EF of 62%. He does have aortic stenosis as well as pulmonary hypertension. Due to his multiple comorbid conditions, he went into respiratory failure, was requiring BiPAP. Patient was slow to recover, did improve, eventually was switched over to oral Lasix. His cellulitis also improved. He was able to be weaned off BiPAP. He does use CPAP machine at night due to his sleep apnea. Patient was initially acidotic and hypercapnic when he came in, did improve with treatment. His cultures remained negative. Patient was referred to [facility] for detention facility placement. Patient was seen by Physical therapy and Occupational therapy, had some improvement in his condition and was able to sit at the side of the bed and get out of his bed and to the chair. His condition improved. Head CT scan was negative. Knee x-ray did not show any fractures, did show joint effusion related to his fall. Patient's pulmonary status improved. He was able to be weaned off BiPAP. He was then accepted to [facility] and was discharged in a stable condition. Activity: Fall precautions, ambulate with assist. Diet: Low-sodium, 1500 mL fluid restriction. Followup: Follow up with primary care physician in 2-3 days. Follow up with head of mobile, Dr. Kitchen, in 2 weeks. Return to ER for worsening condition. Medications: As per medication reconciliation list. Finish off course of doxycycline. For physical exam findings, please see progress note dictated on the day of discharge. Total time spent discharging the patient was 37 minutes. ESTUARDO Voice ID: [id number] Report ID: [id number] ROBERTO
== END 2019-03-31 17:01 | DRG 291 ==
LOC: ER 12:38 → ERHOLD 14:00 → 4TH 14:58
PROVIDERS: ADMIT Family Medicine; ATTEND Family Medicine
PROC: 5A09357 Assistance with Respiratory Ventilation, Less than 24 Consecutive Hours, Continuous Positive Airway Pressure (ICD-10-PCS; principal; 2019-03-19)
DX: I50.33 Acute on chronic diastolic (congestive) heart failure (principal); J96.22 Acute and chronic respiratory failure with hypercapnia; J96.21 Acute and chronic respiratory failure with hypoxia; J44.1 Chronic obstructive pulmonary disease with (acute) exacerbation; I48.20 Chronic atrial fibrillation, unspecified; Z94.0 Kidney transplant status; E87.2 Acidosis; L03.114 Cellulitis of left upper limb; I11.0 Hypertensive heart disease with heart failure; E11.65 Type 2 diabetes mellitus with hyperglycemia; I27.20 Pulmonary hypertension, unspecified; Z79.899 Other long term (current) drug therapy; K21.9 Gastro-esophageal reflux disease without esophagitis; I27.81 Cor pulmonale (chronic); I35.0 Nonrheumatic aortic (valve) stenosis; E66.9 Obesity, unspecified; Z68.29 Body mass index [BMI] 29.0-29.9, adult; Z79.01 Long term (current) use of anticoagulants; G47.30 Sleep apnea, unspecified; L71.9 Rosacea, unspecified; Z88.6 Allergy status to analgesic agent; Z88.0 Allergy status to penicillin; Z96.651 Presence of right artificial knee joint; Z99.81 Dependence on supplemental oxygen; Z87.891 Personal history of nicotine dependence; S41.112A Laceration without foreign body of left upper arm, initial encounter
CPT/HCPCS: 36415; 70450; 71045; 71046; 80048; 80053; 80202; 81003; 82805; 82947; 83605; 83735; 83880; 84132; 84145; 84484; 85025; 87040; 87070; 87205; 87324; 87449; 90471; 90714; 93005; 94640; 94660; 94760; 94762; 96374; 97110; 97112; 97116; 97161; 97165; 97530; 99284; 99285; J1940; J2405; J2920; J2930; J3475; J7040; J7512

== ENCOUNTER 2019-06-12 09:07 | Emergency (ER) | payer OTHER ==
[2019-06-12 10:54] LABS: Urine Blood NEGATIVE (NEG); Urine Glucose NEGATIVE (NEG); Urine Protein NEGATIVE (NEG)
--- NOTE | 2019-06-12 11:04 | RAD REPORT ---
EXAM DESCRIPTION: RAD - Chest Single View - 06/12/2019 10:58 am CLINICAL HISTORY: COUGH Chest pain. COMPARISON: Chest Single View dated 03/23/2019; Chest Pa And Lat (2 Views) dated 03/20/2019; Chest Sin gle View dated 03/19/2019; Chest Pa And Lat (2 Views) dated 02/27/2019 FINDINGS: Portable technique limits examination quality. Bilateral pulmonary opacities are present, greatest in the left lung and right lung base associated w ith small pleural effusions. Heart is moderately enlarged in size. No displaced fractures. IMPRESSION: Mild pulmonary opacities in the left lung and right lung bases probably represent pneumo madalyn.
[2019-06-12 13:20] LABS: Absolute Lymphocytes (CBC) 0.6 K/uL (0.7-4.9); Basophils % 0.4 % (0-1.3); Hematocrit 39.4 % (39.6-49.0); Lymphocytes % 7.8 % (15.3-44.8); MPV 8.8 fL (7.6-11.3); RBC Red Blood Cell Count 4.57 M/uL (4.33-5.43)
[2019-06-12 13:32] LABS: ALT/SGPT 14 U/L (12-78); AST/SGOT 10 U/L (15-37); Albumin 2.7 g/dL (3.4-5.0); Alkaline Phosphatase 71 U/L (45-117); BUN Blood Urea Nitrogen 13 mg/dL (7-18); Bicarbonate 27 mmol/L (21-32); Bilirubin Direct 0.2 mg/dL (0-0.2); Bilirubin Total 0.5 mg/dL (0.2-1.0); Glucose Level 102 mg/dL (74-106); Potassium 4.9 mmol/L (3.5-5.1); Protein, Total 7.1 g/dL (6.4-8.2); Sodium Level 137 mmol/L (136-145); Troponin (Emerg Dept Use Only) < 0.02 ng/mL (0.0-0.045)
--- NOTE | 2019-06-12 14:53 | ER ---
Nurse's Notes [facility] Name: Yunior Lewis Age: 74 yrs Sex: Male : 1945 Arrival Date: 06/12/2019 Time: 09:10 Bed 20 Private MD: Jimmy Almendarez T Diagnosis: Pneumonia in diseases classified elsewhere-Bilateral, likely viral Presentation: 06/11 09:26 Chief complaint: Productive cough and SOB x [address] Almendarez for pneumonia, hb seen on outpatient xray from 3 days ago.. Coronavirus screen: Patient reports a cough. Patient reports shortness of breath or difficulty breathing. Patient denies measured and/or subjective temperature greater than 100.4F prior to today's visit. Patient denies travel on a cruise ship or to a country the [facility] currently lists as an affected area. Patient denies contact with known and/or suspected case of COVID-19. Ebola Screen: No symptoms or risks identified at this time. Initial Sepsis Screen: Does the patient meet any 2 criteria? No. Patient's initial sepsis screen is negative. Does the patient have a suspected source of infection? No. Patient's initial sepsis screen is negative. Risk Assessment: Do you want to hurt yourself or someone else? Patient reports no desire to harm self or others. Onset of symptoms was June 09, 2019. 09:26 Method Of Arrival: Wheelchair hb 09:26 Acuity: JAQUAN 3 hb Historical: - Allergies: 09:30 NSAIDS; hb 09:30 PENICILLINS; hb 09:30 Warfarin; hb - Home Meds: 11:36 tacrolimus 1 mg Oral cap every 12 hours [Active]; mycophenolate mofetil 500 mg Oral tab ca1 2 tabs 2 times per day [Active]; prednisone 5 mg Oral tab 1 tab once daily [Active]; pantoprazole 40 mg Oral TbEC 1 tab once daily [Active]; cholestyramine (bulk) miscellaneous powd daily [Active]; spironolactone 50 mg Oral tab 1 tab once daily [Active]; furosemide 40 mg Oral tab 1 tab 2 times per day [Active]; Eliquis 5 mg Oral tab 1 tab 2 times per day [Active]; digoxin 125 mcg Oral tab 1 tab once daily [Active]; primidone 50 mg Oral tab 1 tabs 3 times per day [Active]; labetalol 200 mg Oral tab 1 tab 2 times per day [Active]; allopurinol 100 mg Oral tab 1 tab 2 times per day [Active]; hydrocodone-acetaminophen 7.5-325 mg Oral tab 1 tab every 4 hours [Active]; rosuvastatin 10 mg Oral tab 1 tab once daily [Active]; Klor-Con 10 10 mEq Oral TbER 1 tab once daily [Active]; montelukast 10 mg oral tab 1 tab once daily [Active]; TRELEGY Ellipta 100mcg fluticasone furate, 62.5mcg umeclidinium \T\ 25mcg 1 puff daily [Active]; Ventolin Rotahaler/Rotacaps 90 mcg Inhl [Active]; Novolin 70/30 Innolet Sub-Q 70-30 unit/mL [Active]; duloxetine 30 mg Oral cpDR 1 cap once daily [Active]; Restasis 0.05 % ophthalmic dpet 1 drop 2 times per day [Active]; Zioptan (PF) 0.0015 % ophthalmic dpet 1 drop once daily [Active]; ipratropium bromide 0.02 % inhalation soln [Active]; - PMHx: 09:30 Diabetes - IDDM; Hypertension; Hyperlipidemia; gastritis; COPD; Sleep Apnea; hb - PSHx: 09:30 kidney transplant; hb - Immunization history:: Adult Immunizations up to date. - Social history:: Smoking status: Patient denies any tobacco usage or history of. Screenin:13 Abuse screen: Denies threats or abuse. Denies injuries from another. Nutritional ca1 screening: No deficits noted. Tuberculosis screening: No symptoms or risk factors identified. Fall Risk IV access (20 points). Gait- Weak (10 pts.). Total Marroquin Fall Scale indicates Low Risk Score (25-44 pts). Fall prevention measures have been instituted. Side Rails Up X 2 As available Patient and Family Educated on Fall Prevention Program and strategies. Assessment: 10:13 General: Appears in no apparent distress. comfortable, Behavior is calm, cooperative, ca1 appropriate for age. Pain: Denies pain. Neuro: Level of Consciousness is awake, alert, obeys commands, Oriented to person, place, time, situation, Appropriate for age. Cardiovascular: Capillary refill < 3 seconds Patient's skin is warm and dry. Edema is 2+ to left midcalf, left ankle, left foot, left toes, right midcalf, right ankle, right foot and right toes. Respiratory: Reports cough that is non-productive, dry, Airway is patent Respiratory effort is even, unlabored, Respiratory pattern is regular, symmetrical, Breath sounds are diminished bilaterally. in left posterior lower lobe, right posterior middle lobe and right posterior lower lobe Denies shortness of breath. GI: Abdomen is round non-distended, Bowel sounds present X 4 quads. Abd is soft and non tender X 4 quads. : Urine is clear. EENT: No signs and/or symptoms were reported regarding the EENT system. Derm: Skin is intact, is fragile, is thin, Skin is pink, warm \T\ dry. Musculoskeletal: Circulation, motion, and sensation intact. Capillary refill < 3 seconds, Swelling present in right foot and left foot. 11:18 Reassessment: cork slabs sawyer at bedside to draw blood for initial labs. ca1 11:18 Reassessment: Patient appears in no apparent distress at this time. Patient and/or ca1 family updated on plan of care and expected duration. Pain level reassessed. Patient is alert, oriented x 3, equal unlabored respirations, skin warm/dry/pink. 11:44 Reassessment: Labs still not drawn, Ms. Key from lab will come to draw blood. ca1 14:21 Reassessment: Anastasiia in outside lab notified to send COVID swab to [facility] isatu Rios RN. 15:11 Reassessment: Patient appears in no apparent distress at this time. No changes from ls4 previously documented assessment. Patient and/or family updated on plan of care and expected duration. Pain level reassessed. Patient is alert, oriented x 3, equal unlabored respirations, skin warm/dry/pink. 15:15 Reassessment: called [facility], independent living, will give daughter a call to pick ls4 him up. 15:36 Reassessment: PT DISCHARGED AND AWAITING RIDE. ls4 06/12 14:00 Reassessment: COVID-19 results faxed to [facility] at [phone]. hp6 Vital Signs: 06/11 09:26 BP 103 / 71; Pulse 80; Resp 24; Temp 98.1; Pulse Ox 96% on R/A; Weight 91.63 kg; Height hb 5 ft. 11 in. (180.34 cm); Pain 0/10; 10:13 BP 128 / 86; Pulse 81; Resp 20 S; Temp 98.1(O); Pulse Ox 98% on R/A; ca1 11:21 BP 134 / 85; Pulse 81; Resp 20; Pulse Ox 98% on R/A; ca1 15:07 BP 159 / 92; Pulse 93; Resp 14; Temp 98.0(O); Pulse Ox 99% on R/A; Pain 0/10; ls4 16:00 BP 146 / 88; Pulse 82; Resp 20; Pulse Ox 99% on R/A; Pain 0/10; ls4 09:26 Body Mass Index 28.17 (91.63 kg, 180.34 cm) hb ED Course: 09:10 Patient arrived in ED. ag5 09:10 Jimmy Almendarez MD is Private Physician. ag5 09:29 Triage completed. hb 09:48 Tasia Washington RN is Primary Nurse. ca1 09:55 Josesito Natarajan FNP-C is [facility]. la1 09:55 Joshua Chatman MD is Attending Physician. la1 10:13 Patient has correct armband on for positive identification. Placed in gown. Bed in low ca1 position. Call light in reach. Side rails up X2. painter and body mechanic apprentice on. Pulse ox on. NIBP on. Warm blanket given. 10:13 Arm band placed on. ca1 10:13 No provider procedures requiring assistance completed. Missed attempt(s): 22 gauge in ca1 right antecubital area. Bleeding controlled, band aid applied, catheter tip intact. 10:58 Chest Single View XRAY In Process Unspecified. EDMS 12:10 Report given to BRENDA Mccoy. ca1 13:23 Nadine Phan RN is Primary Nurse. ls4 13:58 Inserted saline lock: 20 gauge in right wrist, using aseptic technique. ls4 14:51 Justin Kitchen MD is Referral Physician. la1 15:37 IV discontinued, intact, bleeding controlled, No redness/swelling at site. ls4 Administered Medications: No medications were administered Outcome: 14:52 Discharge ordered by MD. la1 16:28 Patient left the ED. ls4 16:28 Discharged to home via wheelchair, with family. ls4 16:28 Condition: stable 16:28 Discharge instructions given to patient, family, Instructed on discharge instructions, follow up and referral plans. medication usage, Demonstrated understanding of instructions, follow-up care, medications. Signatures: Dispatcher [employer] EDMarina Banks RN RN aa5 Josesito Natarajan, BLACK TOP PAVER OPERATOR-C BLACK TOP PAVER OPERATOR-Cla1 Libby Terrazas RN RN Nadine Phan RN RN ls4 Tasia Washington RN RN ca1 Elie, Fozia ag5 Corrections: (The following items were deleted from the chart) 09:29 09:26 BP 103 / 71; Pulse 80bpm; Resp 24bpm; Pulse Ox 97% RA; Temp 98.1F; 91.63 kg; hb Height 5 ft. 11 in.; BMI: 28.1; Pain 0/10; hb 11:28 10:13 Respiratory: Airway is patent Respiratory effort is even, unlabored, Respiratory ca1 pattern is regular, symmetrical, Breath sounds are clear bilaterally. ca1 14:14 10:13 Respiratory: Reports cough that is non-productive, dry, Airway is patent ca1 Respiratory effort is even, unlabored, Respiratory pattern is regular, symmetrical, Breath sounds are diminished bilaterally. in left posterior lower lobe, right posterior middle lobe and right posterior lower lobe ca1
--- NOTE | 2019-06-12 14:53 | EDPHYS ---
Physician Documentation [facility] Name: Yunior Lewis Age: 74 yrs Sex: Male : 1945 Arrival Date: 06/12/2019 Time: 09:10 Bed 20 Private MD: Jimmy Almendarez T ED Physician Joshua Chatman HPI: 06/11 11:10 This 74 yrs old Male presents to ER via Wheelchair with complaints of Wound la1 Check, Cough. 11:10 The patient or guardian reports cough, described as mild. Onset: The symptoms/episode la1 began/occurred 3 day(s) ago. Associated signs and symptoms: Pertinent negatives: fever, nausea, vomiting. Severity of symptoms: At their worst the symptoms were mild. The patient has not experienced similar symptoms in the past. pt reports that he has had a cough for the last few days but the nurse that came and saw him a few days ago and said his lungs sounded bad. Pt had an outpatient xray that showed a pneumonia and sent the patient in for further evaluation. Pt states he does not feel SOB and only has an intermittent dry cough. Took a Z-pack last week for sinus drainage. . Historical: - Allergies: 09:30 NSAIDS; hb 09:30 PENICILLINS; hb 09:30 Warfarin; hb - Home Meds: 11:36 tacrolimus 1 mg Oral cap every 12 hours [Active]; mycophenolate mofetil 500 mg Oral tab ca1 2 tabs 2 times per day [Active]; prednisone 5 mg Oral tab 1 tab once daily [Active]; pantoprazole 40 mg Oral TbEC 1 tab once daily [Active]; cholestyramine (bulk) miscellaneous powd daily [Active]; spironolactone 50 mg Oral tab 1 tab once daily [Active]; furosemide 40 mg Oral tab 1 tab 2 times per day [Active]; Eliquis 5 mg Oral tab 1 tab 2 times per day [Active]; digoxin 125 mcg Oral tab 1 tab once daily [Active]; primidone 50 mg Oral tab 1 tabs 3 times per day [Active]; labetalol 200 mg Oral tab 1 tab 2 times per day [Active]; allopurinol 100 mg Oral tab 1 tab 2 times per day [Active]; hydrocodone-acetaminophen 7.5-325 mg Oral tab 1 tab every 4 hours [Active]; rosuvastatin 10 mg Oral tab 1 tab once daily [Active]; Klor-Con 10 10 mEq Oral TbER 1 tab once daily [Active]; montelukast 10 mg oral tab 1 tab once daily [Active]; TRELEGY Ellipta 100mcg fluticasone furate, 62.5mcg umeclidinium \T\ 25mcg 1 puff daily [Active]; Ventolin Rotahaler/Rotacaps 90 mcg Inhl [Active]; Novolin 70/30 Innolet Sub-Q 70-30 unit/mL [Active]; duloxetine 30 mg Oral cpDR 1 cap once daily [Active]; Restasis 0.05 % ophthalmic dpet 1 drop 2 times per day [Active]; Zioptan (PF) 0.0015 % ophthalmic dpet 1 drop once daily [Active]; ipratropium bromide 0.02 % inhalation soln [Active]; - PMHx: 09:30 Diabetes - IDDM; Hypertension; Hyperlipidemia; gastritis; COPD; Sleep Apnea; hb - PSHx: 09:30 kidney transplant; hb - Immunization history:: Adult Immunizations up to date. - Social history:: Smoking status: Patient denies any tobacco usage or history of. ROS: 11:12 Constitutional: Negative for fever, chills, and weight loss, Eyes: Negative for injury, la1 pain, redness, and discharge, ENT: Negative for injury, pain, and discharge, Cardiovascular: Negative for chest pain, palpitations, and edema. 11:12 Abdomen/GI: Negative for abdominal pain, nausea, vomiting, diarrhea, and constipation, Back: Negative for injury and pain, MS/Extremity: Negative for injury and deformity, Skin: Negative for injury, rash, and discoloration, Neuro: Negative for headache, weakness, numbness, tingling, and seizure. 11:12 Respiratory: Positive for cough, with no reported sputum. Exam: 11:13 Constitutional: This is a well developed, well nourished patient who is awake, alert, la1 and in no acute distress. Head/Face: Normocephalic, atraumatic. Eyes: Pupils equal round and reactive to light, extra-ocular motions intact. ENT: Nares patent. No nasal discharge, no septal abnormalities noted. Chest/axilla: Normal chest wall appearance and motion. Nontender with no deformity. No lesions are appreciated. Cardiovascular: Regular rate and rhythm with a normal S1 and S2. No gallops, murmurs, or rubs. Normal PMI, no JVD. No pulse deficits. 11:13 MS/ Extremity: Pulses equal, no cyanosis. Neurovascular intact. Full, normal range of motion. 11:13 Respiratory: the patient does not display signs of respiratory distress, Respirations: normal, Breath sounds: decreased breath sounds, that are mild, are located in both bases. Vital Signs: 09:26 BP 103 / 71; Pulse 80; Resp 24; Temp 98.1; Pulse Ox 96% on R/A; Weight 91.63 kg; Height hb 5 ft. 11 in. (180.34 cm); Pain 0/10; 10:13 BP 128 / 86; Pulse 81; Resp 20 S; Temp 98.1(O); Pulse Ox 98% on R/A; ca1 11:21 BP 134 / 85; Pulse 81; Resp 20; Pulse Ox 98% on R/A; ca1 15:07 BP 159 / 92; Pulse 93; Resp 14; Temp 98.0(O); Pulse Ox 99% on R/A; Pain 0/10; ls4 16:00 BP 146 / 88; Pulse 82; Resp 20; Pulse Ox 99% on R/A; Pain 0/10; ls4 09:26 Body Mass Index 28.17 (91.63 kg, 180.34 cm) hb MDM: 10:02 Patient medically screened. la1 13:42 ED course: Care delayed due to inability to obtain blood specimens . la1 14:47 Differential diagnosis: flu, URI, PNE, covid. Antibiotic administration: Not indicated. la1 Data reviewed: vital signs, lab test result(s), EKG, radiologic studies, I have discussed the patient's presentation/case with the attending Emergency Department Physician;. Data interpreted: Pulse oximetry: on room air is 98 %. Interpretation: normal. 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 Physician consultation: Justin Kitchen MD was called at 14:49, was contacted at 14:49, regarding consult, and will see patient in office, next week. ED course: pt doing well clinically, states at baseline SOB, no oxygen requirement at this time. Pt reports only mild dry cough. Discussed case with Dr. Almendarez and Dr. Kitchen who agree that patient can be monitored on an outpatient basis as he is medically stable. Given his radiological and lab findings we believe that the patient likely have COVID or a viral pneumonia. Pt given strict return precautions. . 15:10 ED course: spoke with daughter and on the phone, gave strict return precautions, la1 informed that he will not be on abx as we believe this is viral. Both family members verbalize understanding and will help keep a close eye on pt. 06/11 10:13 Order name: Basic Metabolic Panel [facility] 06/11 10:13 Order name: Blood Culture Adult (2) [facility] 06/11 10:13 Order name: CBC with Diff; Complete Time: 13:42 [facility] 06/11 10:13 Order name: Lactate; Complete Time: 13:42 [facility] 06/11 10:13 Order name: LFT's; Complete Time: 13:42 [facility] 06/11 10:13 Order name: Procalcitonin; Complete Time: 13:47 [facility] 06/11 10:13 Order name: Troponin (emerg Dept Use Only); Complete Time: 13:42 [facility] 06/11 10:13 Order name: Flu; Complete Time: 11:13 [facility] 06/11 10:13 Order name: Strep; Complete Time: 11:13 [facility] 06/11 10:13 Order name: Basic Metabolic Panel; Complete Time: 13:42 [facility] 06/11 10:13 Order name: Blood Culture [facility] 06/11 10:36 Order name: COVID-19; Complete Time: 14:44 [facility] 06/11 10:47 Order name: Urine Dipstick--Ancillary (enter results); Complete Time: 11:13 06/11 10:52 Order name: Throat Culture [facility] 06/11 10:13 Order name: Cardiac monitoring; Complete Time: 10:50 [facility] 06/11 10:13 Order name: EKG - Nurse/Tech; Complete Time: 10:50 06/11 10:13 Order name: IV Saline Lock - Large Bore; Complete Time: 14:15 06/11 10:13 Order name: Labs collected and sent; Complete Time: 14:15 06/11 10:13 Order name: O2 Per Protocol; Complete Time: 10:50 06/11 10:13 Order name: O2 Sat Monitoring; Complete Time: 10:50 06/11 10:13 Order name: Chest Single View XRAY; Complete Time: 11:13 la1 Administered Medications: No medications were administered Disposition: 18:30 Co-signature as Attending Physician, Joshua Chatman MD I agree with the assessment and kdr plan of care. Disposition: 06/12/19 14:52 Discharged to Home. Impression: Pneumonia in diseases classified elsewhere - Bilateral, likely viral. - Condition is Stable. - Discharge Instructions: Community-Acquired Pneumonia, Adult, Viral Respiratory Infection, [id number]. - Medication Reconciliation Form, Thank You Letter form. - Follow up: Justin Kitchen MD; When: 2 - 3 days; Reason: Recheck today's complaints, Re-evaluation by your physician. - Problem is new. - Symptoms have improved. - Notes: please call Dr. Coy office for a follow up appointment. He knows about your case and will follow it closely. Signatures: Dispatcher [employer] EDMS Joshua Chatman MD MD kdr Josesito Natarajan, COMMERCIAL REAL ESTATE ASSOCIATE-C COMMERCIAL REAL ESTATE ASSOCIATE-Cla1 Libby Terrazas RN RN Nadine Phan RN RN ls4 Tasia Washington RN RN ca1 Corrections: (The following items were deleted from the chart) 16:28 14:52 06/12/2019 14:52 Discharged to Home. Impression: Pneumonia in diseases classified ls4 elsewhere - Bilateral, likely viral. Condition is Stable. Forms are Medication Reconciliation Form, Thank You Letter, Antibiotic Education, Prescription Opioid Use. Follow up: Justin Kitchen; When: 2 - 3 days; Reason: Recheck today's complaints, Re-evaluation by your physician. Problem is new. Symptoms have improved. la1
[2019-06-12 16:47] VITALS: BP 159/92; TEMP 98; O2SAT 99
--- NOTE | 2019-06-14 07:41 | EKG ---
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
== END 2019-06-12 16:28 | disposition home or self-care (01) ==
LOC: ER 09:07
DX: J18.9 Pneumonia, unspecified organism (principal); Z03.818 Encounter for observation for suspected exposure to other biological agents ruled out; I10 Essential (primary) hypertension; E78.5 Hyperlipidemia, unspecified; E11.9 Type 2 diabetes mellitus without complications; J44.9 Chronic obstructive pulmonary disease, unspecified; Z94.4 Liver transplant status; Z79.02 Long term (current) use of antithrombotics/antiplatelets; Z79.4 Long term (current) use of insulin; Z88.0 Allergy status to penicillin; Z88.6 Allergy status to analgesic agent; Z88.8 Allergy status to other drugs, medicaments and biological substances
CPT/HCPCS: 93005; 87040 ×2; 87070; 85025; 80048; 36415; 80076; 87081; 83605; 81003; 84484; 84145; 87804 ×2; 71045; 99284; U0002 ×2

== ENCOUNTER 2020-01-13 10:15 | Inpatient (IN) | payer OTHER ==
[2020-01-13 11:06] LABS: Absolute Lymphocytes (CBC) 0.4 K/uL (0.7-4.9); Basophils % 0.2 % (0-1.3); Hematocrit 36.9 % (39.6-49.0); Lymphocytes % 2.6 % (15.3-44.8); MPV 9.1 fL (7.6-11.3); RBC Red Blood Cell Count 4.73 M/uL (4.33-5.43)
[2020-01-13 11:16] LABS: Protime INR 1.29
[2020-01-13 11:27] LABS: ALT/SGPT 13 U/L (12-78); AST/SGOT 11 U/L (15-37); Albumin 3.3 g/dL (3.4-5.0); Alkaline Phosphatase 54 U/L (45-117); Amylase 20 U/L (25-115); BUN Blood Urea Nitrogen 14 mg/dL (7-18); Bicarbonate 29 mmol/L (21-32); Bilirubin Direct 0.3 mg/dL (0-0.2); Bilirubin Total 1.1 mg/dL (0.2-1.0); CKMB Creatine Kinase MB < 1.0 ng/mL (0.3-3.6); Creatine Phosphokinase 37 U/L (39-308); Glucose Level 127 mg/dL (74-106); Lipase 27 U/L (73-393); Protein, Total 6.9 g/dL (6.4-8.2); Sodium Level 138 mmol/L (136-145); Troponin (Emerg Dept Use Only) < 0.02 ng/mL (0.0-0.045)
--- NOTE | 2020-01-13 12:58 | EDPHYS ---
Physician Documentation [facility] Name: Yunior Lewis Age: 74 yrs Sex: Male : 1945 Arrival Date: 01/13/2020 Time: 10:22 Bed 17 Private MD: ED Physician Joshua Chatman HPI: 01/12 13:02 This 74 yrs old Male presents to ER via EMS with complaints of Fever. kb 13:02 The patient has shortness of breath at rest. Onset: The symptoms/episode began/occurred kb this morning. Duration: The symptoms are continuous. The patient's shortness of breath is aggravated by exertion, is alleviated by application of supplemental oxygen. Associated signs and symptoms: Pertinent positives: non-productive cough, fever. Severity of symptoms: At their worst the symptoms were moderate in the emergency department the symptoms are unchanged. The patient has experienced similar episodes in the past, a few times. The patient has not recently seen a physician. Pt reports he woke up with shortness of breath and fever. Reports oxygen saturation was 85%. . Historical: - Allergies: 10:36 NSAIDS; ca1 10:36 PENICILLINS; ca1 10:36 Warfarin; ca1 10:36 Demerol; ca1 - Home Meds: 10:36 tacrolimus 1 mg Oral cap every 12 hours [Active]; mycophenolate mofetil 500 mg Oral tab ca1 2 tabs 2 times per day [Active]; prednisone 5 mg Oral tab 1 tab once daily [Active]; pantoprazole 40 mg Oral TbEC 1 tab once daily [Active]; cholestyramine (bulk) miscellaneous powd daily [Active]; spironolactone 50 mg Oral tab 1 tab once daily [Active]; furosemide 40 mg Oral tab 1 tab 2 times per day [Active]; Eliquis 5 mg Oral tab 1 tab 2 times per day [Active]; digoxin 125 mcg Oral tab 1 tab once daily [Active]; primidone 50 mg Oral tab 1 tabs 3 times per day [Active]; labetalol 200 mg Oral tab 1 tab 2 times per day [Active]; allopurinol 100 mg Oral tab 1 tab 2 times per day [Active]; hydrocodone-acetaminophen 7.5-325 mg Oral tab 1 tab every 4 hours [Active]; rosuvastatin 10 mg Oral tab 1 tab once daily [Active]; Klor-Con 10 10 mEq Oral TbER 1 tab once daily [Active]; montelukast 10 mg Oral tab 1 tab once daily [Active]; TRELEGY Ellipta 100mcg fluticasone furate, 62.5mcg umeclidinium \T\ 25mcg 1 puff daily [Active]; Ventolin Rotahaler/Rotacaps 90 mcg Inhl [Active]; Novolin 70/30 Innolet Sub-Q 70-30 unit/mL [Active]; duloxetine 30 mg Oral cpDR 1 cap once daily [Active]; Restasis 0.05 % ophthalmic dpet 1 drop 2 times per day [Active]; Zioptan (PF) 0.0015 % ophthalmic dpet 1 drop once daily [Active]; ipratropium bromide 0.02 % inhalation soln [Active]; - PMHx: 10:36 Diabetes - IDDM; COPD; gastritis; Hyperlipidemia; Hypertension; Sleep Apnea; CHF; Heart ca1 Murmur; - PSHx: 10:36 kidney transplant; ca1 - Immunization history:: Adult Immunizations up to date, Flu vaccine is up to date. - Social history:: Smoking status: Patient/guardian denies using tobacco, the patient reports quitting approximately 11 years ago. ROS: 13:03 Cardiovascular: Negative for chest pain, palpitations, and edema, Abdomen/GI: Negative kb for abdominal pain, nausea, vomiting, diarrhea, and constipation, Back: Negative for injury and pain, MS/Extremity: Negative for injury and deformity, Skin: Negative for injury, rash, and discoloration, Neuro: Negative for headache, weakness, numbness, tingling, and seizure. 13:03 Constitutional: Positive for fever, malaise. 13:03 Respiratory: Positive for cough, dyspnea on exertion, shortness of breath. Exam: 13:04 Constitutional: This is a well developed, well nourished patient who is awake, alert, kb and in no acute distress. Head/Face: Normocephalic, atraumatic. Chest/axilla: Normal chest wall appearance and motion. Nontender with no deformity. No lesions are appreciated. Cardiovascular: Regular rate and rhythm with a normal S1 and S2. No gallops, murmurs, or rubs. Normal PMI, no JVD. No pulse deficits. Abdomen/GI: Soft, non-tender, with normal bowel sounds. No distension or tympany. No guarding or rebound. No evidence of tenderness throughout. Back: No spinal tenderness. No costovertebral tenderness. Full range of motion. Skin: Warm, dry with normal turgor. Normal color with no rashes, no lesions, and no evidence of cellulitis. MS/ Extremity: Pulses equal, no cyanosis. Neurovascular intact. Full, normal range of motion. Neuro: Awake and alert, GCS 15, oriented to person, place, time, and situation. Cranial nerves II-XII grossly intact. Motor strength 5/5 in all extremities. Sensory grossly intact. Cerebellar exam normal. Normal gait. 13:04 Respiratory: the patient does not display signs of respiratory distress, Respirations: normal, Breath sounds: decreased breath sounds, that are mild. Vital Signs: 10:22 BP 141 / 75; Pulse 92; Resp 28; Temp 100.0(O); Pulse Ox 97% on 2 lpm NC; Weight 108.86 em1 kg; 11:26 BP 132 / 69; Pulse 90; Resp 22 S; Pulse Ox 100% on 2 lpm NC; ca1 12:30 BP 123 / 70; Pulse 97; Resp 20 S; Pulse Ox 97% on 2 lpm NC; ca1 13:30 BP 137 / 77; Pulse 93; Resp 20 S; Pulse Ox 100% on 2 lpm NC; ca1 14:30 BP 120 / 80; Pulse 93; Resp 17 S; Temp 99.9(O); Pulse Ox 98% on 2 lpm NC; ca1 15:30 BP 131 / 78; Pulse 99; Resp 19 S; Pulse Ox 99% on 2 lpm NC; ca1 16:30 BP 140 / 75; Pulse 99; Resp 20 S; Pulse Ox 97% on 2 lpm NC; ca1 17:29 BP 140 / 75; Pulse 102; Resp 21; Pulse Ox 98% on 2 lpm NC; ca1 18:30 BP 131 / 74; Pulse 101; Resp 20 S; Pulse Ox 95% on 2 lpm NC; ca1 19:30 BP 144 / 83; Pulse 104; Resp 20 S; Pulse Ox 100% on 2 lpm NC; ca1 20:30 BP 136 / 79; Pulse 107; Resp 22 S; Pulse Ox 98% on 2 lpm NC; ca1 21:30 BP 136 / 82; Pulse 102; Resp 20 S; Pulse Ox 99% on 2 lpm NC; ca1 MDM: 10:30 Patient medically screened. kb 12:54 Data reviewed: vital signs, nurses notes. Data interpreted: Pulse oximetry: on room air kb is 100 %. Interpretation: normal. Counseling: I had a detailed discussion with the patient and/or guardian regarding: the historical points, exam findings, and any diagnostic results supporting the discharge/admit diagnosis, lab results, radiology results, the need for further work-up and treatment in the hospital. 12:58 Physician consultation: Jseus Alisson was contacted at 12:59, regarding admission, to the medical/surgical unit. patient's condition, and will see patient in ED, shortly. 01/12 10:34 Order name: Amylase, Serum 01/12 10:34 Order name: Basic Metabolic Panel 01/12 10:34 Order name: Blood Culture Adult (2) 01/12 10:34 Order name: CBC with Diff 01/12 10:34 Order name: Ckmb 01/12 10:34 Order name: CPK 01/12 10:34 Order name: Lactate; Complete Time: 11:34 kb 01/12 10:34 Order name: LFT's; Complete Time: 11:34 kb 01/12 10:34 Order name: Lipase; Complete Time: 11:34 kb 01/12 10:34 Order name: Procalcitonin; Complete Time: 12:06 kb 01/12 10:34 Order name: Protime (+inr); Complete Time: 11:22 kb 01/12 10:34 Order name: Ptt, Activated; Complete Time: 11:22 kb 01/12 10:34 Order name: Troponin (emerg Dept Use Only); Complete Time: 11:34 kb 01/12 10:34 Order name: Urine Microscopic Only; Complete Time: 17:52 kb 01/12 10:34 Order name: Chest Single View XRAY; Complete Time: 13:53 kb 01/12 10:34 Order name: Cardiac monitoring; Complete Time: 10:50 kb 01/12 10:34 Order name: EKG - Nurse/Tech; Complete Time: 11:12 kb 01/12 10:34 Order name: Flu; Complete Time: 12:06 kb 01/12 10:34 Order name: Amylase; Complete Time: 11:34 EDMS 01/12 10:34 Order name: Basic Metabolic Panel; Complete Time: 11:34 EDMS 01/12 10:34 Order name: Blood Culture EDMS 01/12 10:34 Order name: CBC with Automated Diff; Complete Time: 13:16 EDMS 01/12 10:34 Order name: CKMB Creatine Kinase MB; Complete Time: 11:34 EDMS 01/12 10:34 Order name: Creatine Phosphokinase; Complete Time: 11:34 EDMS 01/12 12:58 Order name: COVID-19 kb 01/12 13:09 Order name: Manual Differential; Complete Time: 13:16 EDMS 01/12 17:05 Order name: Urine Dipstick--Ancillary (enter results) bd 01/12 20:13 Order name: Urine Dipstick-Ancillary; Complete Time: 20:14 EDMS 01/12 21:32 Order name: SARS-COV-2 RT PCR EDMS 01/12 10:34 Order name: IV Saline Lock - Large Bore; Complete Time: 11:19 kb 01/12 10:34 Order name: Labs collected and sent; Complete Time: 10:59 kb 01/12 10:34 Order name: O2 Per Protocol; Complete Time: 10:50 kb 01/12 10:34 Order name: O2 Sat Monitoring; Complete Time: 10:50 kb Administered Medications: 14:10 Drug: Zithromax 500 mg Route: IVPB; Infused Over: 1 hrs; Site: right wrist; ca1 15:10 Follow up: Response: No adverse reaction; IV Status: Completed infusion; IV Intake: ca1 250ml Disposition: 01/13 08:58 Co-signature as Attending Physician, Joshua Chatman MD I agree with the assessment and kdr plan of care. Disposition: 01/13/20 12:57 Hospitalization ordered by Jesus Vinson for Inpatient Admission. Preliminary diagnosis are Pneumonia, unspecified organism, Elevated white blood cell count, Hypoxia. - Bed requested for Telemetry/MedSurg (Inpatient). - Status is Inpatient Admission. ca1 - Condition is Stable. - Problem is new. - Symptoms are unchanged. Signatures: Dispatcher [employer] EDOR Tracy Sun, NURSE PRACTICAL-C NURSE PRACTICAL-Ckb Joshua Chatman MD MD kdr Lasagna, Tonya, RN RN tl1 Tasia Washington RN RN ca1 Corrections: (The following items were deleted from the chart) 01/12 13:01 12:57 Hospitalization Ordered by Jesus Vinson for Inpatient Admission. Preliminary kb diagnosis is Pneumonia, unspecified organism. Bed requested for Telemetry/MedSurg (Inpatient). Status is Inpatient Admission. Condition is Stable. Problem is new. Symptoms are unchanged. kb 13:05 13:03 Constitutional: Positive for fever, kb kb 21:24 13:01 01/13/2020 12:57 Hospitalization Ordered by Jesus Vinson for Inpatient tl1 Admission. Preliminary diagnosis is Pneumonia, unspecified organism; Elevated white blood cell count; Hypoxia. Bed requested for Telemetry/MedSurg (Inpatient). Status is Inpatient Admission. Condition is Stable. Problem is new. Symptoms are unchanged. kb 22:07 21:24 01/13/2020 12:57 Hospitalization Ordered by Jesus Vinson for Inpatient ca1 Admission. Preliminary diagnosis is Pneumonia, unspecified organism; Elevated white blood cell count; Hypoxia. Bed requested for Telemetry/MedSurg (Inpatient). Status is Inpatient Admission. Condition is Stable. Problem is new. Symptoms are unchanged. tl1
--- NOTE | 2020-01-13 12:58 | ER ---
Nurse's Notes [facility] Name: Yunior Lewis Age: 74 yrs Sex: Male : 1945 Arrival Date: 01/13/2020 Time: 10:22 Bed 17 Private MD: Diagnosis: Pneumonia, unspecified organism;Elevated white blood cell count;Hypoxia Presentation: 01/12 10:25 Chief complaint: EMS states: Not feeling well since yesterday, reported fever last ca1 night at 103F. Today, chest pain with inspiration with SOB. Reports SPO2 at 85% RA at home, started home 02 at 2lpm, SP02 increased to 98%. Coronavirus screen: Client denies travel out of the [place] in the last 14 days. fatigue, fever, shortness of breath, Client presents with at least one sign or symptom that may indicate coronavirus-19. Standard/surgical mask placed on the client. Provider contacted for isolation considerations. Ebola Screen: Patient negative for fever greater than or equal to 101.5 degrees Fahrenheit, and additional compatible Ebola Virus Disease symptoms Patient denies exposure to infectious person. Patient denies travel to an Ebola-affected area in the 21 days before illness onset. No symptoms or risks identified at this time. Initial Sepsis Screen: Does the patient meet any 2 criteria? No. Patient's initial sepsis screen is negative. Does the patient have a suspected source of infection? No. Patient's initial sepsis screen is negative. Risk Assessment: Do you want to hurt yourself or someone else? Patient reports no desire to harm self or others. Onset of symptoms was January 12, 2020. 10:25 Method Of Arrival: EMS: [facility] ca1 10:25 Acuity: JAQUAN 3 ca1 Historical: - Allergies: 10:36 NSAIDS; ca1 10:36 PENICILLINS; ca1 10:36 Warfarin; ca1 10:36 Demerol; ca1 - Home Meds: 10:36 tacrolimus 1 mg Oral cap every 12 hours [Active]; mycophenolate mofetil 500 mg Oral tab ca1 2 tabs 2 times per day [Active]; prednisone 5 mg Oral tab 1 tab once daily [Active]; pantoprazole 40 mg Oral TbEC 1 tab once daily [Active]; cholestyramine (bulk) miscellaneous powd daily [Active]; spironolactone 50 mg Oral tab 1 tab once daily [Active]; furosemide 40 mg Oral tab 1 tab 2 times per day [Active]; Eliquis 5 mg Oral tab 1 tab 2 times per day [Active]; digoxin 125 mcg Oral tab 1 tab once daily [Active]; primidone 50 mg Oral tab 1 tabs 3 times per day [Active]; labetalol 200 mg Oral tab 1 tab 2 times per day [Active]; allopurinol 100 mg Oral tab 1 tab 2 times per day [Active]; hydrocodone-acetaminophen 7.5-325 mg Oral tab 1 tab every 4 hours [Active]; rosuvastatin 10 mg Oral tab 1 tab once daily [Active]; Klor-Con 10 10 mEq Oral TbER 1 tab once daily [Active]; montelukast 10 mg Oral tab 1 tab once daily [Active]; TRELEGY Ellipta 100mcg fluticasone furate, 62.5mcg umeclidinium \T\ 25mcg 1 puff daily [Active]; Ventolin Rotahaler/Rotacaps 90 mcg Inhl [Active]; Novolin 70/30 Innolet Sub-Q 70-30 unit/mL [Active]; duloxetine 30 mg Oral cpDR 1 cap once daily [Active]; Restasis 0.05 % ophthalmic dpet 1 drop 2 times per day [Active]; Zioptan (PF) 0.0015 % ophthalmic dpet 1 drop once daily [Active]; ipratropium bromide 0.02 % inhalation soln [Active]; - PMHx: 10:36 Diabetes - IDDM; COPD; gastritis; Hyperlipidemia; Hypertension; Sleep Apnea; CHF; Heart ca1 Murmur; - PSHx: 10:36 kidney transplant; ca1 - Immunization history:: Adult Immunizations up to date, Flu vaccine is up to date. - Social history:: Smoking status: Patient/guardian denies using tobacco, the patient reports quitting approximately 11 years ago. Screenin:25 Abuse screen: Denies threats or abuse. Denies injuries from another. Nutritional ca1 screening: No deficits noted. Tuberculosis screening: No symptoms or risk factors identified. Fall Risk IV access (20 points). Assessment: 10:30 General: Appears in no apparent distress. comfortable, Behavior is calm, cooperative, ca1 appropriate for age, Reports fever for 12-24 hours. Pain: Complains of pain in chest. Neuro: Level of Consciousness is awake, alert, obeys commands, Oriented to person, place, time, situation. Cardiovascular: Heart tones S1 S2 present Capillary refill < 3 seconds Patient's skin is warm and dry. Rhythm is atrial fibrillation. Respiratory: Airway is patent Respiratory effort is even, unlabored, Respiratory pattern is regular, symmetrical, Breath sounds are clear bilaterally. GI: Abdomen is round non-distended, Bowel sounds present X 4 quads. Abd is soft and non tender X 4 quads. : No signs and/or symptoms were reported regarding the genitourinary system. EENT: No signs and/or symptoms were reported regarding the EENT system. Derm: Skin is intact, is healthy with good turgor, Skin is pink, warm \T\ dry. Musculoskeletal: Circulation, motion, and sensation intact. Capillary refill < 3 seconds. 11:26 Reassessment: Patient appears in no apparent distress at this time. Patient and/or ca1 family updated on plan of care and expected duration. Pain level reassessed. Patient is alert, oriented x 3, equal unlabored respirations, skin warm/dry/pink. 12:30 Reassessment: Patient appears in no apparent distress at this time. Patient and/or ca1 family updated on plan of care and expected duration. Pain level reassessed. Patient is alert, oriented x 3, equal unlabored respirations, skin warm/dry/pink. 13:30 Reassessment: Patient appears in no apparent distress at this time. Patient and/or ca1 family updated on plan of care and expected duration. Pain level reassessed. Patient is alert, oriented x 3, equal unlabored respirations, skin warm/dry/pink. 14:30 Reassessment: Patient appears in no apparent distress at this time. Patient and/or ca1 family updated on plan of care and expected duration. Pain level reassessed. Patient is alert, oriented x 3, equal unlabored respirations, skin warm/dry/pink. 15:30 Reassessment: Patient appears in no apparent distress at this time. Patient and/or ca1 family updated on plan of care and expected duration. Pain level reassessed. Patient is alert, oriented x 3, equal unlabored respirations, skin warm/dry/pink. 16:30 Reassessment: Patient appears in no apparent distress at this time. Patient and/or ca1 family updated on plan of care and expected duration. Pain level reassessed. Patient is alert, oriented x 3, equal unlabored respirations, skin warm/dry/pink. 17:29 Reassessment: Patient appears in no apparent distress at this time. Patient and/or ca1 family updated on plan of care and expected duration. Pain level reassessed. Patient is alert, oriented x 3, equal unlabored respirations, skin warm/dry/pink. 18:30 Reassessment: Patient appears in no apparent distress at this time. Patient and/or ca1 family updated on plan of care and expected duration. Pain level reassessed. Patient is alert, oriented x 3, equal unlabored respirations, skin warm/dry/pink. 19:30 Reassessment: Patient appears in no apparent distress at this time. Patient and/or ca1 family updated on plan of care and expected duration. Pain level reassessed. Patient is alert, oriented x 3, equal unlabored respirations, skin warm/dry/pink. 20:30 Reassessment: Patient appears in no apparent distress at this time. Patient and/or ca1 family updated on plan of care and expected duration. Pain level reassessed. Patient is alert, oriented x 3, equal unlabored respirations, skin warm/dry/pink. 21:30 Reassessment: Patient appears in no apparent distress at this time. Patient and/or ca1 family updated on plan of care and expected duration. Pain level reassessed. Patient is alert, oriented x 3, equal unlabored respirations, skin warm/dry/pink. 21:35 Reassessment: Called for report, nurse will call back. ca1 Vital Signs: 10:22 BP 141 / 75; Pulse 92; Resp 28; Temp 100.0(O); Pulse Ox 97% on 2 lpm NC; Weight 108.86 em1 kg; 11:26 BP 132 / 69; Pulse 90; Resp 22 S; Pulse Ox 100% on 2 lpm NC; ca1 12:30 BP 123 / 70; Pulse 97; Resp 20 S; Pulse Ox 97% on 2 lpm NC; ca1 13:30 BP 137 / 77; Pulse 93; Resp 20 S; Pulse Ox 100% on 2 lpm NC; ca1 14:30 BP 120 / 80; Pulse 93; Resp 17 S; Temp 99.9(O); Pulse Ox 98% on 2 lpm NC; ca1 15:30 BP 131 / 78; Pulse 99; Resp 19 S; Pulse Ox 99% on 2 lpm NC; ca1 16:30 BP 140 / 75; Pulse 99; Resp 20 S; Pulse Ox 97% on 2 lpm NC; ca1 17:29 BP 140 / 75; Pulse 102; Resp 21; Pulse Ox 98% on 2 lpm NC; ca1 18:30 BP 131 / 74; Pulse 101; Resp 20 S; Pulse Ox 95% on 2 lpm NC; ca1 19:30 BP 144 / 83; Pulse 104; Resp 20 S; Pulse Ox 100% on 2 lpm NC; ca1 20:30 BP 136 / 79; Pulse 107; Resp 22 S; Pulse Ox 98% on 2 lpm NC; ca1 21:30 BP 136 / 82; Pulse 102; Resp 20 S; Pulse Ox 99% on 2 lpm NC; ca1 ED Course: 10:22 Patient arrived in ED. em1 10:25 Patient has correct armband on for positive identification. Placed in gown. Bed in low ca1 position. Call light in reach. Side rails up X2. database specialist on. Pulse ox on. NIBP on. 10:28 Tasia Washington, BRENDA is Primary Nurse. ca1 10:30 Tracy Sun FNP-C is PHCP. kb 10:30 Joshua Chatman MD is Attending Physician. kb 10:32 Triage completed. ca1 10:36 Arm band placed on right wrist. ca1 10:55 Initial lab(s) drawn, by me, sent to lab. First set of blood cultures drawn by me, EKG em1 done, by ED staff, reviewed by Tracy CURRY. Missed attempt(s): 20 gauge in right antecubital area. Bleeding controlled, band aid applied, catheter tip intact. 11:19 Inserted saline lock: 22 gauge in right wrist, using aseptic technique. ca1 11:26 Chest Single View XRAY In Process Unspecified. EDMS 12:56 Jesus Vinson is Hospitalizing Provider. kb 21:31 No provider procedures requiring assistance completed. Patient admitted, IV remains in ca1 place. Administered Medications: 14:10 Drug: Zithromax 500 mg Route: IVPB; Infused Over: 1 hrs; Site: right wrist; ca1 15:10 Follow up: Response: No adverse reaction; IV Status: Completed infusion; IV Intake: ca1 250ml Intake: 15:10 IV: 250ml; Total: 250ml. ca1 Outcome: 12:57 Decision to Hospitalize by Provider. kb 21:47 Admitted to Med/surg accompanied by tech, via wheelchair, room 220, with chart, Report ca1 called to BRENDA Nguyen 21:47 Condition: stable 21:47 Instructed on the need for admit. 22:07 Patient left the ED. ca1 Signatures: Dispatcher [employer] EDTracy Eugene, MANAGER PHYSICAL-C [place]uck Smart em1 Tasia Washington RN RN ca1 Corrections: (The following items were deleted from the chart) 13:53 13:52 Reassessment: Patient appears in no apparent distress at this time. Patient ca1 and/or family updated on plan of care and expected duration. Pain level reassessed. Patient is alert, oriented x 3, equal unlabored respirations, skin warm/dry/pink. ca1
[2020-01-13 13:09] LABS: Anisocytosis 1+; Blood Morphology Comment NOTED (NOT SEEN); Platelet Estimate ADEQ
--- NOTE | 2020-01-13 13:51 | RAD REPORT ---
EXAM DESCRIPTION: RAD - Chest Single View - 01/13/2020 11:26 am CLINICAL HISTORY: Cough;Chest pain COMPARISON: May 2019 TECHNIQUE: AP portable chest image was obtained 01/13/2020 11:26 am . FINDINGS: Lung parenchymal consolidation is seen in the lower right lung field. Patchy interstitial and alveolar opacities are present in the mid and lower left lung field not substantially different f rom comparison study. Heart size and vasculature are similar to prior imaging. No measurable pleural effusion and no pneumothorax. No acute bone finding. Patient has chronic right shoulder joint degener ative change with probable chronic full-thickness rotator cuff tear. Old rib trauma noted on the left . No acute aortic findings suspected. IMPRESSION: Right lower lung field pneumonia.
--- NOTE | 2020-01-13 13:54 | P.HP ---
Certification for Inpatient Patient admitted to: Inpatient With expected LOS: >2 Midnights Practitioner: I am a practitioner with admitting privileges, knowledge of patient current condition, hospital course, and medical plan of care. Services: Services provided to patient in accordance with Admission requirements found in Title 42 Section 412.3 of the Code of Federal Regulations Patient History Date of Service: 01/13/20 Reason for admission: Shortness of breath and fever History of Present Illness: 74-year-old gentleman with a history of COPD, heart failure, kidney transplant presented to the emergency department with a complaint of fever and chills, shortness of breath and cough of 2 days duration. Patient reports chills, denied chest pain. Chest x-ray done in the emergency department demonstrates right lower lobe pneumonia. Temperature of 100 was recorded in the ED. Patient has leukocytosis. Lactate is normal. Blood cultures taking and admitted for further management of pneumonia. Allergies Penicillins Allergy (Verified 03/20/19 03:57) Itching/Hives/Rash aspirin Adverse Reaction (Verified 03/20/19 03:57) Rash warfarin Adverse Reaction (Verified 03/20/19 03:57) Rash Home Medications: Albuterol Sulfate [Proair Hfa] 2 puff IH QIDP PRN 09/30/17 Apixaban [Eliquis] 5 mg PO BID 09/30/17 Carboxymethylcellulose Sodium [Refresh Liquigel] 1 drop EACH EYE BID PRN 09/30/17 Cyclosporine [Restasis] 1 drop EACH EYE BID 09/30/17 Digoxin [Lanoxin*] 1 tab PO DAILY 09/30/17 Furosemide [Lasix] 40 mg PO BIDWM 09/30/17 Hydrocodone Bit/Acetaminophen [[place] 7.5-325 Tablet] 1 tab PO TID PRN 09/30/17 Insulin Aspart Prot/Insuln Asp [Novolog Mix 70-30 Flexpen] 15 unit SQ DAILY AT SUPPER 09/30/17 Insulin Aspart Prot/Insuln Asp [Novolog Mix 70-30 Flexpen] 25 unit SQ BREAKFAST 09/30/17 Labetalol HCl [Trandate] 200 mg PO BID 09/30/17 Mycophenolate Mofetil [Cellcept] 2 tab PO Q12H 09/30/17 Pantoprazole Sodium [Protonix] 40 mg PO BID 09/30/17 Potassium Chloride [Klor-Con 10] 10 meq PO DAILY 09/30/17 Primidone [Mysoline] 50 mg PO TID 09/30/17 Rosuvastatin [Crestor*] 10 mg PO BEDTIME 09/30/17 Tacrolimus [Prograf] 3 mg PO Q12HR 09/30/17 allopurinoL [Allopurinol] 100 mg PO BID 09/30/17 Cholestyramine (with Sugar) [Cholestyramine Packet] 2 packet PO BEDTIME PRN 02/04/19 Tafluprost/Pf [Zioptan 0.0015% Eye Drops] 1 gtt EACH EYE DAILY 02/04/19 Fluticasone/Umeclidin/Vilanter [Trelegy Ellipta 100-62.5-25] 1 each IH DAILY #30 blst.w.dev 02/07/19 Duloxetine HCl 30 mg PO DAILY 03/20/19 Ipratropium [Atrovent 0.03% (21MCG)/Tomales Nasal*] 2 spray IH QID 03/20/19 Sucralfate [Carafate*] 1 tab PO QID 03/20/19 predniSONE [Prednisone] 5 mg PO DAILY 03/20/19 Doxycycline Hyclate 100 mg PO BID #10 tablet 03/31/19 Montelukast [Singulair] 10 mg PO DAILY 06/17/19 Spironolactone [Aldactone] 50 mg PO DAILY 06/17/19 - Past Medical/Surgical History Diabetic: Yes -: COPD -: CHF -: A Fib -: DM -: Arthritis -: GERD -: HTN -: Gout -: R KNEE REPLACEMENT -: KIDNEY TRANSPLANT -: 40% STOMACH REMOVAL -: CARPAL TUNNEL REPAIR -: Rt Hip Replacement -: Skin graft to nose -: Cholecycectomy -: Appendectomy Psychosocial/ Personal History: Patient lives at home - Family History Father -: Heart disease, Hypertension, Diabetes Mother -: Hypertension, Stroke - Social History Alcohol use: Yes CD- Drugs: No Caffeine use: Yes Review of Systems Other: Except as documented, all other systems reviewed and negative. Physical Examination - Physical Exam General: Alert, In no apparent distress HEENT: Atraumatic, Mucous membr. moist/pink, EOMI, Sclerae nonicteric Neck: Supple, JVD not distended Respiratory: Clear to auscultation bilaterally, Crackles/rales (Right lung), Other (No rhonchi or wheezes) Cardiovascular: No edema, Regular rate/rhythm, Normal S1 S2 Capillary refill: <2 Seconds Gastrointestinal: Normal bowel sounds, Soft and benign, Non-distended, No tenderness Musculoskeletal: No swelling, No tenderness Integumentary: No rashes, No erythema Neurological: Normal speech, Normal strength at 5/5 x4 extr - Studies Laboratory Data (last 24 hrs) 01/13/20 10:55: PT 15.2 H, INR 1.29, APTT 27.3 01/13/20 10:55: WBC 16.6 H, Hgb 11.4 L, Hct 36.9 L, Plt Count 164 01/13/20 10:55: Sodium 138, Potassium 4.0, BUN 14, Creatinine 0.70, Glucose 127 H, Total Bilirubin 1.1 H, AST 11 L, ALT 13, Alkaline Phosphatase 54, Amylase 20 L, Lipase 27 L Microbiology Data (last 24 hrs): 01/13/20 11:09 Nasopharnyx Influenza Type A Antigen Screen - Final 01/13/20 11:09 Nasopharnyx Influenza Type B Antigen Screen - Final Assessment and Plan - Problems (Diagnosis) (1) Pneumonia Current Visit: Yes Status: Acute (2) Chronic diastolic heart failure Current Visit: Yes Status: Acute (3) COPD (chronic obstructive pulmonary disease) Current Visit: No Status: Acute (4) Atrial fibrillation Current Visit: No Status: Chronic Qualifiers: Atrial fibrillation type: longstanding persistent Qualified Code(s): I48.11 - Longstanding persistent atrial fibrillation (5) Diabetes Current Visit: No Status: Chronic Qualifiers: Diabetes mellitus type: type 2 Diabetes mellitus superintendent terminal insulin use: without superintendent terminal use Diabetes mellitus complication status: without complication Qualified Code(s): E11.9 - Type 2 diabetes mellitus without complications (6) Status post kidney transplant Current Visit: No Status: Chronic - Plan Admit to the medical floor. Will treat pneumonia with IV Levaquin. Allergy to penicillin noted. Bronchodilators PRN Supplemental oxygen as needed. Chest physiotherapy. Continue home medications for atrial fibrillation, kidney transplant. Slow IV hydration. Hold Lasix today. - Advance Directives Does patient have a Living Will: Yes Does patient have a Durable POA for Healthcare: No
[2020-01-13] MEDS ORDERED: AZITHROMYCIN IV 500 MG in NA CHLORIDE 0.9% 250 ML IVPB ONE (14:00)
[2020-01-13 17:51] LABS: Urine Bacteria <20 /HPF (NONE SEEN); Urine RBC <5 /HPF (NONE SEEN)
[2020-01-13 20:13] LABS: Urine Blood NEGATIVE (NEG); Urine Glucose NEGATIVE (NEG); Urine Protein 1+ (NEG); Urine pH 5.5 (5.0-7.0)
[2020-01-13] MEDS ORDERED: CHOLESTYRAMINE/ASP 4 GM/PKT PO PRN (21:41)
[2020-01-13] MEDS: HOME MED 1 EA UNK (Mycophenolate Mofetil [Cellcept] 2 TAB) PO SCH (21:41)
[2020-01-13] MEDS ORDERED: HOME MED 1 EA UNK (Labetalol Hcl [Trandate] 200 MG) PO SCH (21:41)
[2020-01-13] MEDS: INSULIN -REGULAR HUMAN 50 UNIT/0.5 ML ML SQ SCH (21:41)
[2020-01-13] MEDS ORDERED: HEPARIN 5000 UNIT/ML 1 ML VIAL SQ SCH (22:00)
[2020-01-13 22:47] VITALS: BMI 31.1
[2020-01-13] MEDS: PRIMIDONE 50 MG TAB PO SCH (23:01)
[2020-01-13] MEDS: ACETAMINOPHEN 500 MG TAB PO PRN (23:01)
[2020-01-13] MEDS: allopurinoL 100 MG TAB PO SCH (23:01)
[2020-01-13] MEDS: PANTOPRAZOLE 40MG TABLET PO SCH (23:01)
[2020-01-13] MEDS: ROSUVASTATIN 10 MG TAB PO SCH (23:01)
[2020-01-13] MEDS: Levofloxacin 750mg IV 750 MG/150 ML BAG IV SCH (23:08)
[2020-01-13] MEDS: NA CHLORIDE 0.9% 1,000 ML IV SCH (23:13)
[2020-01-14 05:57] LABS: Absolute Lymphocytes (CBC) 0.4 K/uL (0.7-4.9); BUN Blood Urea Nitrogen 12 mg/dL (7-18); Basophils % 0.2 % (0-1.3); Bicarbonate 28 mmol/L (21-32); Glucose Level 100 mg/dL (74-106); Hematocrit 33.5 % (39.6-49.0); Lymphocytes % 2.5 % (15.3-44.8); MPV 9.3 fL (7.6-11.3); Magnesium 1.7 mg/dL (1.8-2.4); Phosphorus 2.3 mg/dL (2.5-4.9); Potassium 3.8 mmol/L (3.5-5.1); RBC Red Blood Cell Count 4.37 M/uL (4.33-5.43); Sodium Level 136 mmol/L (136-145)
[2020-01-14] MEDS: POTASS/SODIUM PHOSPHATE 1 PKT POWD.PACK PO SCH ×2 (06:35→09:16)
[2020-01-14] MEDS: INSULIN -REGULAR HUMAN 50 UNIT/0.5 ML ML SQ SCH ×4 (07:30→20:57)
[2020-01-14] MEDS ORDERED: TAFLUPROST EACH EYE SCH (09:00)
[2020-01-14] MEDS ORDERED: MAGNESIUM SULFATE 1 gm IVPB 1 GM/100 ML BAG IV ONE (09:00)
[2020-01-14] MEDS: HEPARIN 5000 UNIT/ML 1 ML VIAL SQ SCH ×2 (09:00→17:00)
[2020-01-14] MEDS: PANTOPRAZOLE 40MG TABLET PO SCH ×2 (09:17→20:56)
[2020-01-14] MEDS: LABETALOL HCL 100 MG TAB PO SCH ×2 (09:17→20:55)
[2020-01-14] MEDS: PRIMIDONE 50 MG TAB PO SCH ×3 (09:17→20:55)
[2020-01-14] MEDS: SPIRONOLACTONE 25 MG TABLET PO SCH (09:17)
[2020-01-14] MEDS: HOME MED 1 EA UNK (Mycophenolate Mofetil [Cellcept] 2 TAB) PO SCH (09:18)
[2020-01-14] MEDS: allopurinoL 100 MG TAB PO SCH ×2 (09:18→20:55)
[2020-01-14] MEDS ORDERED: ONDANSETRON 4 MG/2 ML VIAL IV PRN (10:14)
--- NOTE | 2020-01-14 11:16 | P.PN ---
Subjective Date of Service: 01/14/20 Chief Complaint: Shortness of breath and fever Patient reports only slight improvement in shortness of breath. He had a fever up to 101 last night. He states his cough is nonproductive. Physical Examination - Vital Signs Temperature: 99 F Blood Pressure: 123/65 Pulse: 94 Respirations: 18 Pulse Ox (%): 96 - Physical Exam General: Alert, In no apparent distress HEENT: Mucous membr. moist/pink Neck: Supple, JVD not distended Respiratory: Normal air movement, Crackles/rales (Right lower) Cardiovascular: No edema, Regular rate/rhythm, Normal S1 S2 Gastrointestinal: Normal bowel sounds, Soft and benign, No tenderness Musculoskeletal: No swelling, No tenderness Integumentary: No rashes, No erythema Neurological: Normal speech, Normal strength at 5/5 x4 extr - Studies Laboratory Data (last 24 hrs) 01/13/20 10:55: PT 15.2 H, INR 1.29, APTT 27.3 01/13/20 10:55: WBC 16.6 H, Hgb 11.4 L, Hct 36.9 L, Plt Count 164 01/13/20 10:55: Sodium 138, Potassium 4.0, BUN 14, Creatinine 0.70, Glucose 127 H, Total Bilirubin 1.1 H, AST 11 L, ALT 13, Alkaline Phosphatase 54, Amylase 20 L, Lipase 27 L Microbiology Data (last 24 hrs): 01/13/20 11:09 Nasopharnyx Influenza Type A Antigen Screen - Final 01/13/20 11:09 Nasopharnyx Influenza Type B Antigen Screen - Final Assessment And Plan - Current Problems (Diagnosis) (1) Pneumonia Current Visit: Yes Status: Acute (2) Chronic diastolic heart failure Current Visit: Yes Status: Acute (3) COPD (chronic obstructive pulmonary disease) Current Visit: No Status: Acute (4) Atrial fibrillation Current Visit: No Status: Chronic Qualifiers: Atrial fibrillation type: longstanding persistent Qualified Code(s): I48.11 - Longstanding persistent atrial fibrillation (5) Diabetes Current Visit: No Status: Chronic Qualifiers: Diabetes mellitus type: type 2 Diabetes mellitus chcf insulin use: without chcf use Diabetes mellitus complication status: without complication Qualified Code(s): E11.9 - Type 2 diabetes mellitus without complications (6) Status post kidney transplant Current Visit: No Status: Chronic - Plan W continue IV Levaquin pneumonia. Allergy to penicillin noted. Patient reports he had delirium with penicillin as a teenager. Not sure if this is a true allergy. Will consider cephalosporin if not much response with the IV Levaquin Bronchodilators PRN. Supplemental oxygen as needed. Chest physiotherapy. Continue home medications for atrial fibrillation, kidney transplant. Discontinue IV fluid Resume Lasix. Monitor CBC. PT evaluation.
[2020-01-14] MEDS: FUROSEMIDE 40 MG TABLET PO SCH (17:16)
[2020-01-14] MEDS: NA CHLORIDE 0.9% 1,000 ML IV SCH (17:19)
[2020-01-14] MEDS: ACETAMINOPHEN 500 MG TAB PO PRN (17:19)
[2020-01-14] MEDS: ALBUTEROL 2.5 MG/3 ML NEB SOL NEB PRN (19:46)
[2020-01-14] MEDS: HYDROCODONE/APAP 7.5/325 MG TAB PO PRN (20:54)
[2020-01-14] MEDS: GUAIFENESIN 600 MG SA TAB PO SCH (20:55)
[2020-01-14] MEDS: MYCOPHENOLATE MOFETIL 500 MG PO SCH (20:58)
[2020-01-14] MEDS: Levofloxacin 750mg IV 750 MG/150 ML BAG IV SCH (21:00)
[2020-01-14] MEDS: ROSUVASTATIN 10 MG TAB PO SCH (21:03)
[2020-01-15] MEDS: HEPARIN 5000 UNIT/ML 1 ML VIAL SQ SCH ×3 (00:13→17:29)
[2020-01-15 06:35] LABS: Absolute Lymphocytes (CBC) 0.4 K/uL (0.7-4.9); Basophils % 0.2 % (0-1.3); Hematocrit 34.4 % (39.6-49.0); Lymphocytes % 3.1 % (15.3-44.8); MPV 9.7 fL (7.6-11.3); RBC Red Blood Cell Count 4.47 M/uL (4.33-5.43)
[2020-01-15 06:54] LABS: BUN Blood Urea Nitrogen 11 mg/dL (7-18); Bicarbonate 31 mmol/L (21-32); Glucose Level 102 mg/dL (74-106); Magnesium 1.7 mg/dL (1.8-2.4); Phosphorus 2.5 mg/dL (2.5-4.9); Potassium 3.7 mmol/L (3.5-5.1); Sodium Level 136 mmol/L (136-145)
[2020-01-15] MEDS: INSULIN -REGULAR HUMAN 50 UNIT/0.5 ML ML SQ SCH ×4 (07:30→21:00)
[2020-01-15] MEDS: ALBUTEROL 2.5 MG/3 ML NEB SOL NEB PRN ×2 (09:00→15:07)
[2020-01-15] MEDS ORDERED: POTASSIUM CL SA 10 MEQ TAB PO ONE (09:00)
[2020-01-15] MEDS ORDERED: MAGNESIUM SULFATE 1 gm IVPB 1 GM/100 ML BAG IV ONE (09:00)
[2020-01-15] MEDS: MYCOPHENOLATE MOFETIL 500 MG PO SCH ×2 (09:43→21:07)
[2020-01-15] MEDS: POTASS/SODIUM PHOSPHATE 1 PKT POWD.PACK PO SCH ×3 (09:44→11:53)
[2020-01-15] MEDS: LABETALOL HCL 100 MG TAB PO SCH ×2 (09:44→21:08)
[2020-01-15] MEDS: GUAIFENESIN 600 MG SA TAB PO SCH ×3 (09:45→21:08)
[2020-01-15] MEDS: PRIMIDONE 50 MG TAB PO SCH ×3 (09:45→21:08)
[2020-01-15] MEDS: allopurinoL 100 MG TAB PO SCH ×2 (09:46→21:08)
[2020-01-15] MEDS: FUROSEMIDE 40 MG TABLET PO SCH ×2 (09:46→17:29)
[2020-01-15] MEDS: SPIRONOLACTONE 25 MG TABLET PO SCH (09:46)
[2020-01-15] MEDS: PANTOPRAZOLE 40MG TABLET PO SCH ×2 (09:46→21:08)
[2020-01-15] MEDS: TACROLIMUS 1 MG PO SCH ×2 (12:06→21:07)
--- NOTE | 2020-01-15 13:06 | P.PN ---
Subjective Date of Service: 01/15/20 Chief Complaint: Shortness of breath and fever Patient feeling slightly better compared to yesterday. He has had no fever today He stated he did not tolerate BiPAP well last night. Physical Examination - Vital Signs Temperature: 99 F Blood Pressure: 111/69 Pulse: 92 Respirations: 16 Pulse Ox (%): 93 - Physical Exam General: Alert, In no apparent distress HEENT: Mucous membr. moist/pink Neck: JVD not distended Respiratory: Normal air movement, Crackles/rales (Mild bibasilar crackles.) Cardiovascular: No edema, Regular rate/rhythm, Normal S1 S2 Gastrointestinal: Normal bowel sounds, Soft and benign, No tenderness Musculoskeletal: No swelling, No erythema Integumentary: No rashes Neurological: Other (Nonfocal) Assessment And Plan - Current Problems (Diagnosis) (1) Pneumonia Current Visit: Yes Status: Acute (2) Chronic diastolic heart failure Current Visit: Yes Status: Acute (3) COPD (chronic obstructive pulmonary disease) Current Visit: No Status: Acute (4) Atrial fibrillation Current Visit: No Status: Chronic Qualifiers: Atrial fibrillation type: longstanding persistent Qualified Code(s): I48.11 - Longstanding persistent atrial fibrillation (5) Diabetes Current Visit: No Status: Chronic Qualifiers: Diabetes mellitus type: type 2 Diabetes mellitus correction insulin use: without buttermaker use Diabetes mellitus complication status: without complication Qualified Code(s): E11.9 - Type 2 diabetes mellitus without complications (6) Status post kidney transplant Current Visit: No Status: Chronic - Plan Patient is responding to the IV Levaquin. Continue Levaquin. Cultures: No growth to date. Bronchodilators PRN. Supplemental oxygen as needed. Chest physiotherapy. Continue home medications for atrial fibrillation, kidney transplant. Continue Lasix. Monitor CBC. PT.
--- NOTE | 2020-01-15 15:32 | RAD REPORT ---
EXAM DESCRIPTION: RAD - Chest Single View - 01/15/2020 3:19 pm CLINICAL HISTORY: Pneumonia COMPARISON: January 12 TECHNIQUE: AP portable chest image was obtained 01/15/2020 3:19 pm . FINDINGS: Right base airspace opacification has progressed from the prior study. Severity is exagger ated by under penetrated technique. Central vascular engorgement has increased in prominence. There i s some increase in interstitial and patchy alveolar opacities in each upper lung field. Cardiomegaly is present. Trachea is midline. No pneumothorax seen. No large pleural effusion. No acu te bony abnormality seen. No acute aortic findings suspected. IMPRESSION: Worsening right base pneumonia findings since January 12. Central vasculature is slightly more prominent. Patient can be monitored for concurrent volume overlo ad as well.
--- NOTE | 2020-01-15 19:27 | RAD REPORT ---
EXAM DESCRIPTION: RAD - Chest Single View - 01/15/2020 7:00 pm CLINICAL HISTORY: Follow up pneumonia COMPARISON: January 14 TECHNIQUE: AP portable chest image was obtained 01/15/2020 7:00 pm . FINDINGS: Right base opacification is present not substantially different from the prior study. No n ew or progressive upper right lung field lower left lung field finding. Heart and vasculature are nor mal. No measurable pleural effusion and no pneumothorax. No acute bony abnormality seen. No acute aor tic findings suspected. IMPRESSION: Stable chest from earlier examination. No change the right base opacification.
[2020-01-15] MEDS: ROSUVASTATIN 10 MG TAB PO SCH (21:10)
[2020-01-15] MEDS: Levofloxacin 750mg IV 750 MG/150 ML BAG IV SCH (21:12)
[2020-01-15] MEDS: HYDROCODONE/APAP 7.5/325 MG TAB PO PRN (22:09)
[2020-01-16] MEDS: HEPARIN 5000 UNIT/ML 1 ML VIAL SQ SCH ×2 (01:01→09:00)
[2020-01-16] MEDS: ACETAMINOPHEN 500 MG TAB PO PRN (03:48)
[2020-01-16 06:18] LABS: Absolute Lymphocytes (CBC) 0.4 K/uL (0.7-4.9); Basophils % 0.7 % (0-1.3); Hematocrit 33.4 % (39.6-49.0); Lymphocytes % 3.5 % (15.3-44.8); MPV 9.9 fL (7.6-11.3); RBC Red Blood Cell Count 4.34 M/uL (4.33-5.43)
[2020-01-16 06:26] LABS: BUN Blood Urea Nitrogen 11 mg/dL (7-18); Bicarbonate 34 mmol/L (21-32); Glucose Level 119 mg/dL (74-106); Magnesium 1.6 mg/dL (1.8-2.4); Phosphorus 3.2 mg/dL (2.5-4.9); Potassium 3.5 mmol/L (3.5-5.1); Sodium Level 136 mmol/L (136-145)
[2020-01-16] MEDS: INSULIN -REGULAR HUMAN 50 UNIT/0.5 ML ML SQ SCH ×4 (07:30→20:35)
[2020-01-16] MEDS ORDERED: POTASSIUM CL SA 10 MEQ TAB PO ONE (09:00)
[2020-01-16] MEDS ORDERED: MAGNESIUM SULFATE 1 gm IVPB 1 GM/100 ML BAG IV ONE (09:00)
[2020-01-16] MEDS: SPIRONOLACTONE 25 MG TABLET PO SCH (09:30)
[2020-01-16] MEDS: HYDROCODONE/APAP 7.5/325 MG TAB PO PRN ×2 (09:30→20:19)
[2020-01-16] MEDS: allopurinoL 100 MG TAB PO SCH ×2 (09:30→20:10)
[2020-01-16] MEDS: LABETALOL HCL 100 MG TAB PO SCH ×2 (09:30→20:09)
[2020-01-16] MEDS: GUAIFENESIN 600 MG SA TAB PO SCH ×3 (09:30→20:09)
[2020-01-16] MEDS: PRIMIDONE 50 MG TAB PO SCH ×3 (09:31→20:10)
[2020-01-16] MEDS: PANTOPRAZOLE 40MG TABLET PO SCH ×2 (09:31→20:10)
[2020-01-16] MEDS: FUROSEMIDE 40 MG TABLET PO SCH ×2 (09:31→16:48)
[2020-01-16] MEDS: TACROLIMUS 1 MG PO SCH ×2 (09:33→20:16)
[2020-01-16] MEDS: MYCOPHENOLATE MOFETIL 500 MG PO SCH ×2 (09:33→20:15)
--- NOTE | 2020-01-16 10:11 | P.CNS ---
Date of Consult: 01/16/20 Reason for Consult: Right lower lobe pneumonia Chief Complaint: Shortness of breath and fever History of Present Illness: Patient is 74 years of age well known to me multiple medical problems status post kidney transplant COPD congestive heart failure admitted with worsening shortness of breath cough congestion for about a week is found to have a right lower lobe pneumonia was followed up by a forensic technician compliant with his medication he is currently on high-flow nasal cannula oxygen still having productive cough Allergies NSAIDS (Non-Steroidal Anti-Inflamma Allergy (Verified 01/13/20 22:44) stomach pains Penicillins Allergy (Verified 01/13/20 22:44) Itching/Hives/Rash aspirin Adverse Reaction (Verified 01/13/20 22:44) Rash warfarin Adverse Reaction (Verified 01/13/20 22:44) Rash Home Medications: Albuterol Sulfate [Proair Hfa] 2 puff IH QIDP PRN 09/30/17 Apixaban [Eliquis] 5 mg PO BID 09/30/17 Carboxymethylcellulose Sodium [Refresh Liquigel] 1 drop EACH EYE BID PRN 09/30/17 Cyclosporine [Restasis] 1 drop EACH EYE BID 09/30/17 Digoxin [Lanoxin*] 1 tab PO DAILY 09/30/17 Furosemide [Lasix] 40 mg PO BIDWM 09/30/17 Hydrocodone Bit/Acetaminophen [[place] 7.5-325 Tablet] 1 tab PO TID PRN 09/30/17 Insulin Aspart Prot/Insuln Asp [Novolog Mix 70-30 Flexpen] 20 unit SQ BREAKFAST 09/30/17 Insulin Aspart Prot/Insuln Asp [Novolog Mix 70-30 Flexpen] 20 unit SQ DAILY AT SUPPER 09/30/17 Labetalol HCl [Trandate] 200 mg PO BID 09/30/17 Mycophenolate Mofetil [Cellcept] 2 tab PO Q12H 09/30/17 Pantoprazole Sodium [Protonix] 40 mg PO BID 09/30/17 Potassium Chloride [Klor-Con 10] 10 meq PO DAILY 09/30/17 Primidone [Mysoline] 50 mg PO TID 09/30/17 Rosuvastatin [Crestor*] 10 mg PO BEDTIME 09/30/17 Tacrolimus [Prograf] 3 mg PO Q12HR 09/30/17 allopurinoL [Allopurinol] 100 mg PO BID 09/30/17 Cholestyramine (with Sugar) [Cholestyramine Packet] 2 packet PO BEDTIME PRN 02/04/19 Tafluprost/Pf [Zioptan 0.0015% Eye Drops] 1 gtt EACH EYE BEDTIME 02/04/19 Fluticasone/Umeclidin/Vilanter [Trelegy Ellipta 100-62.5-25] 1 each IH DAILY #30 blst.w.dev 02/07/19 Duloxetine HCl 30 mg PO DAILY 03/20/19 Ipratropium [Atrovent 0.03% (21MCG)/Moro Nasal*] 2 spray IH QID 03/20/19 predniSONE [Prednisone] 5 mg PO DAILY 03/20/19 Montelukast [Singulair] 10 mg PO DAILY 06/17/19 Spironolactone [Aldactone] 50 mg PO DAILY 06/17/19 Emollient Combination No.113 [Soothe and Cool Skin Cream] 1 vinicio TOP BEDTIME 01/14/20 - Past Medical/Surgical History Diabetic: Yes -: COPD -: CHF -: A Fib -: DM -: Arthritis -: GERD -: HTN -: Gout -: HLD -: TREMORS -: R KNEE REPLACEMENT -: KIDNEY TRANSPLANT -: 40% STOMACH REMOVAL -: CARPAL TUNNEL REPAIR -: Rt Hip Replacement -: Skin graft to nose -: Cholecystectomy -: Appendectomy Psychosocial/ Personal History: Patient lives at home - Family History Father Medical History: Heart disease, Hypertension, Diabetes Mother Medical History: Hypertension, Stroke - Social History Alcohol use: No CD- Drugs: No Caffeine use: Yes Review of Systems 10-point ROS is otherwise unremarkable General: Weakness Respiratory: Cough, Shortness of Breath Physical Examination Temp Pulse Resp BP Pulse Ox 97.8 F 122 H 18 141/82 H 94 01/16/20 08:00 01/16/20 09:31 01/16/20 09:30 01/16/20 09:31 01/16/20 09:30 General: Alert, Mild distress Respiratory: Crackles/rales (Crackles at the right base), Expiratory wheezes - Problems (1) Pneumonia Current Visit: Yes Status: Acute Plan: Patient is 74 years of age well known to in history of COPD congestive heart failure status post kidney transplant admitted with 1 week history of worsening cough shortness of breath chest congestion productive sputum he has a right lower lobe pneumonia agree with IV levofloxacin UD is white count is declining pains are stable plan to titrate his sat to 90% patient's blood cultures are negative of ordered sputum cultures all labs reviewed I have also added some bronchodilators on a scheduled basis
--- NOTE | 2020-01-16 10:36 | P.PN ---
Subjective Date of Service: 01/16/20 Chief Complaint: Shortness of breath and fever Patient developed shortness of breath yesterday and had been put on high-flow oxygen. Leukocytosis has trended down. He reports poor sleep. He stated he feels sick. Physical Examination - Vital Signs Temperature: 97.8 F Blood Pressure: 141/82 Pulse: 122 Respirations: 18 Pulse Ox (%): 94 - Physical Exam General: Alert, In no apparent distress HEENT: Mucous membr. moist/pink Neck: Supple, JVD not distended Respiratory: Normal air movement, Crackles/rales (Right lung) Cardiovascular: No edema, Normal S1 S2, Other (Tachycardia) Gastrointestinal: Normal bowel sounds, Soft and benign, No tenderness Musculoskeletal: No swelling, No tenderness Integumentary: No rashes Neurological: Other (Nonfocal) Assessment And Plan - Current Problems (Diagnosis) (1) Pneumonia Current Visit: Yes Status: Acute (2) Chronic diastolic heart failure Current Visit: Yes Status: Acute (3) COPD (chronic obstructive pulmonary disease) Current Visit: No Status: Acute (4) Atrial fibrillation Current Visit: No Status: Chronic Qualifiers: Atrial fibrillation type: longstanding persistent Qualified Code(s): I48.11 - Longstanding persistent atrial fibrillation (5) Diabetes Current Visit: No Status: Chronic Qualifiers: Diabetes mellitus type: type 2 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 Cultures: No growth to date. Pulmonology input appreciated Bronchodilators. Weaned off high-flow oxygen as tolerated. Chest physiotherapy. Continue home medications for atrial fibrillation, kidney transplant. Continue Lasix. Monitor CBC. PT. Increase activity as tolerated.
[2020-01-16] MEDS: ARFORMOTEROL TARTRATE 15 MCG/2 ML VIAL.NEB NEB SCH ×2 (11:00→20:00)
[2020-01-16] MEDS: IPRATROPIUM BROM 0.5MG/2.5ML NEB SCH ×2 (15:07→20:00)
[2020-01-16] MEDS ORDERED: NA CHLORIDE 0.9% 500 ML ONE (20:08)
[2020-01-16] MEDS: ROSUVASTATIN 10 MG TAB PO SCH (20:09)
[2020-01-16] MEDS: Levofloxacin 750mg IV 750 MG/150 ML BAG IV SCH (21:00)
[2020-01-17] MEDS: IPRATROPIUM BROM 0.5MG/2.5ML NEB SCH ×4 (01:10→19:45)
[2020-01-17 05:34] LABS: BUN Blood Urea Nitrogen 13 mg/dL (7-18); Bicarbonate 37 mmol/L (21-32); Glucose Level 121 mg/dL (74-106); Magnesium 1.6 mg/dL (1.8-2.4); Potassium 3.9 mmol/L (3.5-5.1); Sodium Level 135 mmol/L (136-145)
[2020-01-17] MEDS: INSULIN -REGULAR HUMAN 50 UNIT/0.5 ML ML SQ SCH ×4 (07:30→21:19)
[2020-01-17] MEDS: ARFORMOTEROL TARTRATE 15 MCG/2 ML VIAL.NEB NEB SCH ×2 (07:45→19:45)
[2020-01-17] MEDS ORDERED: POTASSIUM CL SA 10 MEQ TAB PO ONE (09:00)
[2020-01-17] MEDS ORDERED: MAGNESIUM SULFATE 1 gm IVPB 1 GM/100 ML BAG IV ONE (09:00)
[2020-01-17] MEDS: PANTOPRAZOLE 40MG TABLET PO SCH ×2 (10:12→21:16)
[2020-01-17] MEDS: HYDROCODONE/APAP 7.5/325 MG TAB PO PRN ×2 (10:12→21:14)
[2020-01-17] MEDS: FUROSEMIDE 40 MG TABLET PO SCH ×2 (10:12→17:45)
[2020-01-17] MEDS: GUAIFENESIN 600 MG SA TAB PO SCH ×3 (10:12→21:15)
[2020-01-17] MEDS: LABETALOL HCL 100 MG TAB PO SCH ×2 (10:13→21:16)
[2020-01-17] MEDS: SPIRONOLACTONE 25 MG TABLET PO SCH (10:13)
[2020-01-17] MEDS: PRIMIDONE 50 MG TAB PO SCH ×3 (10:13→21:15)
[2020-01-17] MEDS: allopurinoL 100 MG TAB PO SCH ×2 (10:13→21:15)
[2020-01-17] MEDS: MYCOPHENOLATE MOFETIL 500 MG PO SCH ×2 (10:14→21:18)
[2020-01-17] MEDS: TACROLIMUS 1 MG PO SCH ×2 (10:14→21:18)
--- NOTE | 2020-01-17 10:35 | P.PN ---
Subjective Date of Service: 01/17/20 Chief Complaint: Shortness of breath and fever Patient states he feels better today. He remain on high flow oxygen. He reports poor sleep. He has been a fever. Physical Examination - Vital Signs Temperature: 97.5 F Blood Pressure: 137/80 Pulse: 124 Respirations: 24 Pulse Ox (%): 94 - Physical Exam General: Alert, In no apparent distress HEENT: Mucous membr. moist/pink Neck: JVD not distended Respiratory: Crackles/rales (Right lung.) Cardiovascular: No edema, Normal S1 S2, Irregular heart rate/rhythm Gastrointestinal: Normal bowel sounds, Soft and benign, No tenderness Integumentary: No rashes Assessment And Plan - Current Problems (Diagnosis) (1) Pneumonia Current Visit: Yes Status: Acute (2) Chronic diastolic heart failure Current Visit: Yes Status: Acute (3) COPD (chronic obstructive pulmonary disease) Current Visit: No Status: Acute (4) Atrial fibrillation Current Visit: No Status: Chronic Qualifiers: Atrial fibrillation type: longstanding persistent Qualified Code(s): I48.11 - Longstanding persistent atrial fibrillation (5) Diabetes Current Visit: No Status: Chronic Qualifiers: Diabetes mellitus type: type 2 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 Cultures: No growth to date. Pulmonology is following. Bronchodilators. Weaned off high-flow oxygen as tolerated. Chest physiotherapy. Continue home medications for atrial fibrillation, kidney transplant. Continue Lasix. Monitor CBC. PT. Increase activity as tolerated. Trazodone p.r.n. for insomnia.
--- NOTE | 2020-01-17 11:11 | P.PN ---
Subjective Date of Service: 01/17/20 Chief Complaint: Pneumonia Subjective: Improving (Patient is doing better feels weak has not been able to walk yet) Review of Systems General: Weakness Respiratory: Shortness of Breath Physical Examination - Vital Signs Temperature: 97.5 F Blood Pressure: 137/80 Pulse: 124 Respirations: 24 Pulse Ox (%): 94 - Physical Exam General: Alert, In no apparent distress, Oriented x3 Respiratory: Clear to auscultation bilaterally, Diminished Cardiovascular: No edema, Irregular heart rate/rhythm Assessment & Plan - Problems (Diagnosis) (1) Pneumonia Current Visit: Yes Status: Acute Plan: Patient admitted with right lower lobe pneumonia sputum cultures are pending clinically improving white count is back to normal vital signs stable nasal cannula oxygen if possible change to p.o. levofloxacin physical therapy possible discharge Qualifiers: Pneumonia type: due to unspecified organism
[2020-01-17] MEDS: ROSUVASTATIN 10 MG TAB PO SCH (21:15)
[2020-01-17] MEDS: TRAZODONE 50 MG TABLET PO PRN (22:58)
[2020-01-18] MEDS: IPRATROPIUM BROM 0.5MG/2.5ML NEB SCH ×4 (01:35→19:20)
[2020-01-18 04:51] LABS: BUN Blood Urea Nitrogen 16 mg/dL (7-18); Glucose Level 132 mg/dL (74-106); Magnesium 1.7 mg/dL (1.8-2.4); Potassium 4.2 mmol/L (3.5-5.1); Sodium Level 134 mmol/L (136-145)
[2020-01-18 04:53] LABS: Bicarbonate 41 mmol/L (21-32)
[2020-01-18] MEDS: INSULIN -REGULAR HUMAN 50 UNIT/0.5 ML ML SQ SCH ×4 (07:30→21:07)
[2020-01-18] MEDS: LABETALOL HCL 100 MG TAB PO SCH ×2 (08:30→21:08)
[2020-01-18] MEDS: GUAIFENESIN 600 MG SA TAB PO SCH ×3 (08:31→21:12)
[2020-01-18] MEDS: allopurinoL 100 MG TAB PO SCH ×2 (08:31→21:08)
[2020-01-18] MEDS: levoFLOXacin 250 MG TAB PO SCH (08:31)
[2020-01-18] MEDS: FUROSEMIDE 40 MG TABLET PO SCH ×2 (08:31→17:18)
[2020-01-18] MEDS: PANTOPRAZOLE 40MG TABLET PO SCH ×2 (08:32→21:08)
[2020-01-18] MEDS: SPIRONOLACTONE 25 MG TABLET PO SCH (08:32)
[2020-01-18] MEDS: PRIMIDONE 50 MG TAB PO SCH ×3 (08:32→21:12)
[2020-01-18] MEDS: TACROLIMUS 1 MG PO SCH ×2 (08:32→21:14)
[2020-01-18] MEDS: MYCOPHENOLATE MOFETIL 500 MG PO SCH ×2 (08:34→21:00)
[2020-01-18] MEDS ORDERED: MAGNESIUM SULFATE 1 gm IVPB 1 GM/100 ML BAG IV ONE (09:00)
[2020-01-18] MEDS: ARFORMOTEROL TARTRATE 15 MCG/2 ML VIAL.NEB NEB SCH ×2 (09:00→19:20)
--- NOTE | 2020-01-18 11:36 | P.PN ---
Subjective Date of Service: 01/18/20 Chief Complaint: Pneumonia Patient response treatment has been slow. He is complaining of more shortness of breath today He reports poor sleep. Physical Examination - Vital Signs Temperature: 97 F Blood Pressure: 126/72 Pulse: 136 Respirations: 18 Pulse Ox (%): 90 - Physical Exam General: Alert, Other (Sick looking) HEENT: Mucous membr. moist/pink Neck: Supple, JVD not distended Respiratory: Crackles/rales (Right lung) Cardiovascular: No edema, Normal S1 S2, Irregular heart rate/rhythm Gastrointestinal: Normal bowel sounds, Soft and benign, Non-distended, No tenderness Musculoskeletal: No swelling, No erythema Integumentary: Other (Bilateral lower extremity hemosiderin staining.) Neurological: Other (Nonfocal) - Studies Microbiology Data (last 24 hrs): 01/13/20 10:55 Blood - Blood Aerobic Blood Culture - Final No growth in 5 days. 01/13/20 10:55 Blood - Blood Anaerobic Blood Culture - Final No growth in 5 days. 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 Cultures: No growth to date. Pulmonology is following. Bronchodilators. BiPAP ventilation for hypercapnia and hypoxia Chest physiotherapy. Continue home medications for atrial fibrillation, kidney transplant. Continue Lasix. Monitor CBC. PT. Increase activity as tolerated.
--- NOTE | 2020-01-18 15:57 | RAD REPORT ---
EXAM DESCRIPTION: RAD - Chest Single View - 01/18/2020 3:41 pm CLINICAL HISTORY: Follow up Pneumonia. r/o Pulmonary edema COMPARISON: January 14 TECHNIQUE: AP portable chest image was obtained 01/18/2020 3:41 pm . FINDINGS: Lung volumes are reduced compared to the prior study. Mid and lower right lung field paren chymal opacification is present. Costophrenic angle blunting on the right is increased. Interstitial and alveolar opacities in the left lung field only slightly greater than seen previously. Trachea is midline. No pneumothorax. No acute bony abnormality seen. No acute aortic findings suspected. IMPRESSION: Patient has shown no improvement from the January 14 study. Increased opacification is probably the affects shallow inspiration. A slight progression of disease cannot be excluded. Heart size is diminished from comparison and pulmonary vasculature within normal limits. A new or pro gressive failure or volume overload are doubtful.
[2020-01-18] MEDS ORDERED: FUROSEMIDE 40 MG/4 ML VIAL IV ONE (16:00)
[2020-01-18 16:10] LABS: Blood Gas Oxyhemoglobin 86.1 % (94-97); Blood O2 Saturation 88.7 % (92-98.5)
[2020-01-18] MEDS: TRAZODONE 50 MG TABLET PO PRN (21:12)
[2020-01-18] MEDS: ROSUVASTATIN 10 MG TAB PO SCH (21:12)
[2020-01-19] MEDS: IPRATROPIUM BROM 0.5MG/2.5ML NEB SCH ×4 (01:25→19:45)
[2020-01-19] MEDS: HYDROCODONE/APAP 7.5/325 MG TAB PO PRN ×3 (05:35→22:38)
[2020-01-19 07:06] LABS: BUN Blood Urea Nitrogen 17 mg/dL (7-18); Bicarbonate 38 mmol/L (21-32); Glucose Level 142 mg/dL (74-106); Magnesium 1.6 mg/dL (1.8-2.4); Potassium 4.2 mmol/L (3.5-5.1); Sodium Level 135 mmol/L (136-145)
[2020-01-19] MEDS: INSULIN -REGULAR HUMAN 50 UNIT/0.5 ML ML SQ SCH ×4 (07:30→22:26)
[2020-01-19] MEDS: ARFORMOTEROL TARTRATE 15 MCG/2 ML VIAL.NEB NEB SCH ×2 (07:48→19:45)
[2020-01-19] MEDS: SPIRONOLACTONE 25 MG TABLET PO SCH (09:35)
[2020-01-19] MEDS: FUROSEMIDE 40 MG TABLET PO SCH ×2 (09:35→17:34)
[2020-01-19] MEDS: levoFLOXacin 250 MG TAB PO SCH (09:35)
[2020-01-19] MEDS: PANTOPRAZOLE 40MG TABLET PO SCH ×2 (09:36→22:23)
[2020-01-19] MEDS: LABETALOL HCL 100 MG TAB PO SCH ×2 (09:36→22:23)
[2020-01-19] MEDS: allopurinoL 100 MG TAB PO SCH ×2 (09:36→22:28)
[2020-01-19] MEDS: GUAIFENESIN 600 MG SA TAB PO SCH ×3 (09:36→22:23)
[2020-01-19] MEDS: PRIMIDONE 50 MG TAB PO SCH ×3 (09:36→22:23)
[2020-01-19] MEDS: TACROLIMUS 1 MG PO SCH ×2 (09:36→22:22)
[2020-01-19] MEDS: MYCOPHENOLATE MOFETIL 500 MG PO SCH ×2 (09:37→22:22)
[2020-01-19] MEDS ORDERED: VANCOMYCIN 1.75 GM in NA CHLORIDE 0.9% 500 ML IVPB SCH (10:00)
[2020-01-19] MEDS: APIXABAN 5 MG TABLET PO SCH ×2 (12:35→22:22)
[2020-01-19] MEDS: DOXYCYCLINE 100 MG in NA CHLORIDE 0.9% 100 ML IVPB SCH ×2 (13:12→22:24)
[2020-01-19 16:05] LABS: Arterial Blood Carboxyhemoglob 1.9 % (0-1.5); Blood O2 Saturation 84.4 % (92-98.5)
--- NOTE | 2020-01-19 17:14 | P.PN ---
Subjective Date of Service: 01/19/20 Chief Complaint: Pneumonia Subjective: No new changes (pt reports feeling about the same today, maybe feeling slightly more comfortable with breathing. States he has a lot of generalized weakness, has been unable to work with physical therapy due to shortness of breath. He would like to Go To inpatient rehab if possible, [place] in [place] is his secondary choice. He is not want to go to the skilled nursing his is at - blames them for her decline) Physical Examination - Vital Signs Temperature: 98.4 F Blood Pressure: 123/74 Pulse: 120 Respirations: 17 Pulse Ox (%): 90 - Physical Exam General: In no apparent distress, Oriented x3 HEENT: Sclerae nonicteric Respiratory: Diminished, Crackles/rales (right lung base) Cardiovascular: Regular rate/rhythm, Edema (trace bilaterally) Gastrointestinal: Soft and benign, No tenderness Musculoskeletal: No tenderness Neurological: Normal speech, Normal affect - Studies Microbiology Data (last 24 hrs): 01/13/20 12:18 Blood - Blood Aerobic Blood Culture - Final No growth in 5 days. 01/13/20 12:18 Blood - Blood Anaerobic Blood Culture - Final No growth in 5 days. Assessment & Plan Physician Review Additional Text: acute on chronic respiratory failure with hypoxia and hypercapnia Pneumonia Chronic diastolic CHF COPD Afib, persistent DM2 s/p renal transplant Sputum culture growing MRSA -reviewed sensitivities, add doxycycline to Levaquin Pulmonology is following Continue Bronchodilators On 3 L nasal cannula this morning, patient reports she does not like the BiPAP Continue Chest physiotherapy. Continue home medications for atrial fibrillation, kidney transplant. Continue Lasix. Monitor CBC. PT working with patient - has been too SOB to participate Increase activity as tolerated. Dispo: SW consulted for SNF vs rehab placement - pt reports significant weakness, feels like he can't walk at this point Time Spent Managing Pts Care (In Minutes): 35
--- NOTE | 2020-01-19 18:27 | RAD REPORT ---
EXAM DESCRIPTION: RAD - Chest Single View - 01/19/2020 6:00 pm CLINICAL HISTORY: SOB, hypoxia, increased work of breathing Chest pain. COMPARISON: Chest Single View dated 01/18/2020; Chest Single View dated 01/15/2020; Chest Single Vie w dated 01/15/2020; Chest Single View dated 01/13/2020 FINDINGS: Portable technique limits examination quality. Moderate opacity in the right lung appears slightly improved since the comparative radiograph. Inters titial opacities in left lung remains stable. The heart is moderately enlarged. IMPRESSION: Slight improvement in right lung aeration seen since comparative study.
[2020-01-19] MEDS ORDERED: MAGNESIUM SULFATE 1 gm IVPB 1 GM/100 ML BAG IV ONE (21:00)
[2020-01-19] MEDS: ROSUVASTATIN 10 MG TAB PO SCH (22:24)
[2020-01-19] MEDS ORDERED: NA CHLORIDE 0.9% 250 ML ONE (22:32)
[2020-01-20] MEDS: IPRATROPIUM BROM 0.5MG/2.5ML NEB SCH ×4 (01:15→19:55)
[2020-01-20] MEDS: INSULIN -REGULAR HUMAN 50 UNIT/0.5 ML ML SQ SCH ×4 (07:30→20:58)
[2020-01-20 07:48] LABS: Absolute Lymphocytes (CBC) 0.6 K/uL (0.7-4.9); Basophils % 0.5 % (0-1.3); Hematocrit 37.5 % (39.6-49.0); Lymphocytes % 5.8 % (15.3-44.8); MPV 8.9 fL (7.6-11.3); RBC Red Blood Cell Count 4.86 M/uL (4.33-5.43)
[2020-01-20 07:57] LABS: BUN Blood Urea Nitrogen 23 mg/dL (7-18); Bicarbonate 40 mmol/L (21-32); Glucose Level 135 mg/dL (74-106); Magnesium 2.1 mg/dL (1.8-2.4); Potassium 3.7 mmol/L (3.5-5.1); Sodium Level 135 mmol/L (136-145)
[2020-01-20] MEDS: ARFORMOTEROL TARTRATE 15 MCG/2 ML VIAL.NEB NEB SCH ×2 (08:10→19:55)
--- NOTE | 2020-01-20 08:42 | P.PN ---
Subjective Date of Service: 01/30/20 Chief Complaint: Respiratory failure Patient is not improving he is hypoxic requiring BiPAP still very short of breath in week Review of Systems General: Weakness Respiratory: Shortness of Breath Physical Examination - Vital Signs Temperature: 97.6 F Blood Pressure: 116/65 Pulse: 117 Respirations: 20 Pulse Ox (%): 95 - Physical Exam General: Alert, Moderate distress Respiratory: Diminished (Diminished air entry on the right side), Crackles/rales Cardiovascular: No edema, Regular rate/rhythm, Irregular heart rate/rhythm Assessment & Plan - Problems (Diagnosis) (1) Pneumonia Status: Acute Plan: Patient admitted with right lower lobe pneumonia sputum cultures are pending clinically improving white count is back to normal vital signs stable nasal cannula oxygen if possible change to p.o. levofloxacin physical therapy possible discharge Qualifiers: Pneumonia type: due to unspecified organism (2) Respiratory failure Status: Acute Plan: Patient has respiratory failure is currently on BiPAP he does have a home BiPAP chest x-ray shows some haziness in the right lung base white count is improving no evidence of active sepsis urine cultures positive for Mr TERRY is currently on doxycycline p.o. levofloxacin patient has chronic hypoxemia and hypercapnia overall prognosis is poor recommend LTAC discuss with the patient he does not want to be intubated or undergo CPR trial of patient's BiPAP
[2020-01-20] MEDS: MYCOPHENOLATE MOFETIL 500 MG PO SCH ×2 (09:00→20:59)
[2020-01-20] MEDS: DOXYCYCLINE 100 MG in NA CHLORIDE 0.9% 100 ML IVPB SCH ×2 (09:36→20:59)
[2020-01-20] MEDS: LABETALOL HCL 100 MG TAB PO SCH ×2 (09:37→20:57)
[2020-01-20] MEDS: APIXABAN 5 MG TABLET PO SCH ×2 (09:37→20:57)
[2020-01-20] MEDS: GUAIFENESIN 600 MG SA TAB PO SCH ×3 (09:37→20:57)
[2020-01-20] MEDS: FUROSEMIDE 40 MG TABLET PO SCH ×2 (09:37→16:12)
[2020-01-20] MEDS: levoFLOXacin 250 MG TAB PO SCH (09:38)
[2020-01-20] MEDS: SPIRONOLACTONE 25 MG TABLET PO SCH (09:38)
[2020-01-20] MEDS: PANTOPRAZOLE 40MG TABLET PO SCH ×2 (09:38→21:02)
[2020-01-20] MEDS: allopurinoL 100 MG TAB PO SCH ×2 (09:39→20:57)
[2020-01-20] MEDS: PRIMIDONE 50 MG TAB PO SCH ×3 (09:39→20:57)
[2020-01-20] MEDS: TACROLIMUS 1 MG PO SCH ×2 (09:39→20:59)
--- NOTE | 2020-01-20 13:35 | CON ---
History Of Present Illness: This is a 74-year-old male with history of COPD and kidney transplant, c oming in with severe shortness of breath, currently on BiPAP. The patient has been having cough for 2 days prior to admission. I was consulted to evaluate and manage his pneumonia. The patient showed right lower lobe pneumonia with fever of 100 on admission and leukocytosis. Currently, the patient is being treated with IV antibiotic including doxycycline as the patient has shown MRSA on sputum cul ture. His leukocytosis has improved from 16,000 to 10,000. Past Medical History: COPD oxygen dependent at home, sleep apnea, congestive heart failure, atrial f ibrillation, diabetes mellitus, arthritis, GERD, hypertension, gout, right knee replacement, kidney t ransplant, 40% stomach removal, carpal tunnel repair, right hip replacement, skin graft to the nose, cholecystectomy, appendectomy. Social History: Tobacco positive. Alcohol positive. Family History: Hypertension, heart disease, diabetes, stroke. Medications: Doxycycline. See MAR for other medications. Allergies: NONSTEROIDAL ANTI-INFLAMMATORY DRUGS AND PENICILLIN, ASPIRIN, AND WARFARIN. Review of Systems: A 10-point review was performed. Physical Examination: General: This is a 74-year-old male, lying on bed with BiPAP machine in place. Vital Signs: Temperature 97.6, pulse 117, respirations 20, blood pressure 116/65. HEENT: Unremarkable. Neck: Supple. Lungs: Basal crackles. Heart: S1, S2. Regular. Abdomen: Soft, nontender. Bowel sounds present. Extremities: No edema. Hyperpigmentation noted. Laboratory Data: WBC is down at 10,000, hemoglobin 11.8, platelets are 235. Chemistry shows sodium 135, potassium 3.7, chloride 89, bicarb is 40, BUN 23, creatinine 0.73, glucose is 135. Micro data, sputum culture; MRSA. Chest x-ray shows from 01/18, the patient has slight improvement of right lung aeration. Assessment And Plan: Methicillin-resistant Staphylococcus aureus pneumonia in a patient with signifi cant history of chronic obstructive pulmonary disease, currently being treated with doxycycline. We will recommend to continue for 2 more weeks. Chronic obstructive pulmonary disease management and re spiratory care to be continued. Nutritional evaluation. Continue supportive care. Continue current medications and respiratory care. We will follow the patient closely. Consider long-term acute car e. We will follow the patient closely. Thank you Dr. Stallings for consult. NF/MODL Voice ID: [id number] Report ID: [id number]
--- NOTE | 2020-01-20 17:25 | P.PN ---
Subjective Date of Service: 01/20/20 Chief Complaint: Respiratory failure Subjective: Improving (feels like he has slightly improved this morning, still requiring intermittent BIPAP) Review of Systems 10-point ROS is otherwise unremarkable Physical Examination - Vital Signs Temperature: 97.1 F Blood Pressure: 92/60 Pulse: 120 Respirations: 31 Pulse Ox (%): 91 - Physical Exam General: Alert, Oriented x3 HEENT: Sclerae nonicteric Respiratory: Diminished (at bases; on BIPAP), Crackles/rales (bilaterally) Cardiovascular: Regular rate/rhythm Gastrointestinal: Soft and benign, No tenderness Musculoskeletal: No tenderness Integumentary: No rashes Neurological: Normal speech, Normal affect Assessment & Plan Physician Review Additional Text: acute on chronic respiratory failure with hypoxia and hypercapnia Pneumonia Chronic diastolic CHF COPD Afib, persistent DM2 s/p renal transplant Sputum culture growing MRSA -reviewed sensitivities, on Doxy - ID consulted Pulmonology is following Continue Bronchodilators still requiring intermittent BIPAP, was on HFNC yesterday as well Continue Chest physiotherapy. Continue home medications for atrial fibrillation, kidney transplant. Continue Lasix. Monitor CBC. PT ordered but patient has been too SOB to participate Increase activity as tolerated. discussed with pulm and ID - pt requiring high levels of oxygen / BIPAP, which would be more appropriate for LTAC and inappropriate for SNF Dispo: SW consulted for LTAC - patient agreeable Time Spent Managing Pts Care (In Minutes): 35
[2020-01-20] MEDS: ROSUVASTATIN 10 MG TAB PO SCH (20:57)
[2020-01-20] MEDS: TRAZODONE 50 MG TABLET PO PRN (21:03)
[2020-01-21] MEDS: IPRATROPIUM BROM 0.5MG/2.5ML NEB SCH ×4 (01:35→20:00)
[2020-01-21 07:01] LABS: Absolute Lymphocytes (CBC) 0.9 K/uL (0.7-4.9); Basophils % 0.5 % (0-1.3); Lymphocytes % 5.5 % (15.3-44.8); RBC Red Blood Cell Count 5.07 M/uL (4.33-5.43)
[2020-01-21] MEDS: INSULIN -REGULAR HUMAN 50 UNIT/0.5 ML ML SQ SCH ×4 (07:30→21:00)
[2020-01-21] MEDS: ARFORMOTEROL TARTRATE 15 MCG/2 ML VIAL.NEB NEB SCH ×2 (07:45→20:00)
[2020-01-21] MEDS: ALBUTEROL 2.5 MG/3 ML NEB SOL NEB PRN (07:45)
[2020-01-21] MEDS: APIXABAN 5 MG TABLET PO SCH ×2 (08:47→21:29)
[2020-01-21] MEDS: LABETALOL HCL 100 MG TAB PO SCH ×2 (08:47→21:31)
[2020-01-21] MEDS: GUAIFENESIN 600 MG SA TAB PO SCH ×3 (08:48→21:30)
[2020-01-21] MEDS: levoFLOXacin 250 MG TAB PO SCH (08:48)
[2020-01-21] MEDS: allopurinoL 100 MG TAB PO SCH ×2 (08:49→21:30)
[2020-01-21] MEDS: PRIMIDONE 50 MG TAB PO SCH ×3 (08:49→21:32)
[2020-01-21] MEDS: SPIRONOLACTONE 25 MG TABLET PO SCH (08:49)
[2020-01-21] MEDS: FUROSEMIDE 40 MG TABLET PO SCH ×2 (08:49→17:17)
[2020-01-21] MEDS: PANTOPRAZOLE 40MG TABLET PO SCH ×2 (08:49→21:30)
[2020-01-21] MEDS: DOXYCYCLINE 100 MG in NA CHLORIDE 0.9% 100 ML IVPB SCH ×3 (08:50→21:35)
[2020-01-21] MEDS: TACROLIMUS 1 MG PO SCH ×2 (08:51→21:26)
[2020-01-21] MEDS: MYCOPHENOLATE MOFETIL 500 MG PO SCH ×2 (08:52→21:00)
[2020-01-21] MEDS: DIGOXIN 0.125 MG TABLET PO SCH (08:54)
--- NOTE | 2020-01-21 09:09 | P.PN ---
Subjective Date of Service: 01/21/20 Chief Complaint: Respiratory failure Subjective: No new changes (feels slightly better compared to yesterday, reports breathing is better, but still tachypneic ~26 / min. voiding without issue, tolerating diet reviewed telemetry and patient with afib RVR with rates 120-130s this morning) Review of Systems 10-point ROS is otherwise unremarkable Physical Examination - Vital Signs Temperature: 97.4 F Blood Pressure: 126/84 Pulse: 150 Respirations: 28 Pulse Ox (%): 98 - Physical Exam General: Alert, Mild distress Respiratory: Crackles/rales (at bases bilaterally, on BIPAP, tachypneic) Cardiovascular: Edema (1+ bilaterally to mid-tibia), Irregular heart rate/rhythm (afib 120s) Gastrointestinal: Soft and benign, No tenderness Musculoskeletal: No tenderness Neurological: Normal speech, Normal affect Assessment & Plan Physician Review Additional Text: acute on chronic respiratory failure with hypoxia and hypercapnia Pneumonia Chronic diastolic CHF COPD Afib, persistent DM2 s/p renal transplant acute on chronic respiratory failure with hypoxia and hypercapnia Pneumonia Chronic diastolic CHF -Sputum culture growing MRSA -reviewed sensitivities, on Doxy - ID consulted, recommend at least 2 more weeks of doxy -Pulmonology is following as well -Continue Bronchodilators, chest physiotherapy -still requiring intermittent BIPAP/hFNC -continue lasix -discussed with pulm and ID - pt requiring high levels of oxygen / BIPAP, which would be more appropriate for LTAC and inappropriate for SNF Afib, persistent -now with RVR in 120-130s this morning -due for labetalol 200mg bid now, there was confusion regarding home med, did not receive digoxin since admission, will restart today -if still persists will consult cardiology PT ordered but patient has been too SOB to participate Increase activity as tolerated. labs pending this morning Dispo: SW consulted for LTAC - patient agreeable Time Spent Managing Pts Care (In Minutes): 35
--- NOTE | 2020-01-21 10:45 | P.PN ---
Subjective Date of Service: 01/30/20 Chief Complaint: Respiratory failure Patient is feeling weak no change still short of breath tolerating his own BiPAP from home white count mildly elevated Review of Systems General: Weakness Respiratory: Shortness of Breath Physical Examination - Vital Signs Temperature: 97.4 F Blood Pressure: 126/84 Pulse: 150 Respirations: 28 Pulse Ox (%): 98 - Physical Exam General: Alert, Oriented x3, Moderate distress Respiratory: Clear to auscultation bilaterally, Diminished Cardiovascular: Irregular heart rate/rhythm Assessment & Plan - Problems (Diagnosis) (1) Pneumonia Status: Acute Plan: Patient is white count is little elevated agree with meropenem and doxycycline haziness on the right side probably combination of pneumonia and pleural effusion Qualifiers: Pneumonia type: due to unspecified organism (2) Respiratory failure Status: Acute Plan: P respiratory failure doing much better on is own BiPAP oxygenation satisfactory 95% on 3 L currently in AFib may need rate control with amiodarone
[2020-01-21] MEDS: Meropenem 1,000 MG in NA CHLORIDE 0.9% 100 ML IV SCH ×2 (11:24→17:17)
[2020-01-21] MEDS ORDERED: METOPROLOL TARTRATE 5 MG/5 ML INJ IV STA ×2 (12:26→16:36)
[2020-01-21] MEDS ORDERED: Meropenem 1000 MG/VIAL IV SCH (17:00)
[2020-01-21] MEDS: ROSUVASTATIN 10 MG TAB PO SCH (21:33)
[2020-01-22] MEDS: IPRATROPIUM BROM 0.5MG/2.5ML NEB SCH ×4 (00:50→20:00)
[2020-01-22] MEDS: Meropenem 1,000 MG in NA CHLORIDE 0.9% 100 ML IV SCH ×3 (01:00→17:37)
[2020-01-22 07:00] LABS: Absolute Lymphocytes (CBC) 0.7 K/uL (0.7-4.9); Basophils % 0.5 % (0-1.3); Hematocrit 35.6 % (39.6-49.0); Lymphocytes % 6.5 % (15.3-44.8); MPV 8.9 fL (7.6-11.3); RBC Red Blood Cell Count 4.65 M/uL (4.33-5.43)
[2020-01-22 07:20] LABS: BUN Blood Urea Nitrogen 24 mg/dL (7-18); Bicarbonate 39 mmol/L (21-32); Glucose Level 127 mg/dL (74-106); Magnesium 1.7 mg/dL (1.8-2.4); Potassium 3.8 mmol/L (3.5-5.1); Sodium Level 133 mmol/L (136-145)
[2020-01-22] MEDS ORDERED: MAGNESIUM SULFATE 1 gm IVPB 1 GM/100 ML BAG IV ONE (07:30)
[2020-01-22] MEDS: INSULIN -REGULAR HUMAN 50 UNIT/0.5 ML ML SQ SCH ×4 (07:30→20:45)
[2020-01-22] MEDS ORDERED: POTASSIUM 25 MEQ EFFERV TAB PO ONE (07:31)
[2020-01-22] MEDS: ARFORMOTEROL TARTRATE 15 MCG/2 ML VIAL.NEB NEB SCH ×2 (07:50→20:00)
[2020-01-22] MEDS: DOXYCYCLINE 100 MG in NA CHLORIDE 0.9% 100 ML IVPB SCH ×2 (08:27→20:50)
[2020-01-22] MEDS: FUROSEMIDE 40 MG TABLET PO SCH ×3 (08:28→20:49)
[2020-01-22] MEDS: APIXABAN 5 MG TABLET PO SCH ×2 (08:29→20:48)
[2020-01-22] MEDS: DIGOXIN 0.125 MG TABLET PO SCH (08:29)
[2020-01-22] MEDS: PRIMIDONE 50 MG TAB PO SCH ×3 (08:29→20:48)
[2020-01-22] MEDS: LABETALOL HCL 100 MG TAB PO SCH ×2 (08:29→20:47)
[2020-01-22] MEDS: allopurinoL 100 MG TAB PO SCH ×2 (08:29→20:48)
[2020-01-22] MEDS: GUAIFENESIN 600 MG SA TAB PO SCH ×3 (08:29→20:49)
[2020-01-22] MEDS: PANTOPRAZOLE 40MG TABLET PO SCH ×2 (08:29→20:49)
[2020-01-22] MEDS: SPIRONOLACTONE 25 MG TABLET PO SCH (08:29)
[2020-01-22] MEDS: TACROLIMUS 1 MG PO SCH ×2 (08:30→20:50)
[2020-01-22] MEDS: MYCOPHENOLATE MOFETIL 500 MG PO SCH ×2 (08:31→20:51)
[2020-01-22 13:59] LABS: Urine Appearance CLEAR; Urine Bilirubin NEGATIVE (NEG); Urine Blood NEGATIVE (NEG); Urine Color YELLOW; Urine Glucose NEGATIVE (NEG); Urine Protein NEGATIVE (NEG); Urine Specific Gravity 1.015 (1.005-1.030); Urine pH 6.5 (5.0-7.0)
[2020-01-22 14:03] LABS: Urine Microscopic Reflex NO UMIC
--- NOTE | 2020-01-22 17:00 | RAD REPORT ---
EXAM DESCRIPTION: Janell Single View01/22/2020 3:25 am CLINICAL HISTORY: Picc line insertion COMPARISON: None. FINDINGS: Single frontal radiograph view of the chest. Cardiomediastinal silhouette: Atherosclerotic calcification of the thoracic aorta. Cardiomegaly. Lead s overlie the chest. Right arm PICC with tip in the SVC. Lungs: Diffuse bilateral interstitial and airspace opacities, more confluent on the right than the le ft. Possible small right pleural effusion. No pneumothorax. Bones: Degenerative change of the spine and shoulders. Upper abdomen: No abnormality identified. IMPRESSION: 1. Right PICC with tip in the SVC. 2. Cardiomegaly. 3. Diffuse bilateral interstitial and airspace opacities, more confluent in the right lower lobe. Pos sible small right pleural effusions. These changes could be seen with bilateral pneumonia. Electronically signed by: Chinmay Carroll 01/22/2020 3:28 AM INSTRUCTOR PHYSICAL EDUCATION Due to temporary technical issues with the PACS/Fluency reporting system, reports are being signed by the in house radiologists without review as a courtesy to insure prompt reporting. The interpreting radiologist is fully responsible for the content of the report
--- NOTE | 2020-01-22 17:35 | P.PN ---
Subjective Date of Service: 01/22/20 Chief Complaint: Respiratory failure Subjective: Improving (Feels he is breathing better today, otherwise no changes, continues on BiPAP) Review of Systems 10-point ROS is otherwise unremarkable Physical Examination - Vital Signs Temperature: 97.5 F Blood Pressure: 97/60 Pulse: 92 Respirations: 20 Pulse Ox (%): 98 - Physical Exam General: Alert Respiratory: Crackles/rales (Mild bilaterally at bases on BiPAP) Cardiovascular: Irregular heart rate/rhythm (Afib, HR: 100-110s) Gastrointestinal: Soft and benign, Non-distended, No tenderness Musculoskeletal: No tenderness Neurological: Normal speech, Normal affect Assessment & Plan Physician Review Additional Text: acute on chronic respiratory failure with hypoxia and hypercapnia Pneumonia Chronic diastolic CHF COPD Afib, persistent DM2 s/p renal transplant acute on chronic respiratory failure with hypoxia and hypercapnia Pneumonia Chronic diastolic CHF -Sputum culture growing MRSA -reviewed sensitivities, on Doxy - ID consulted, recommend at least 2 more weeks of doxy -leukocytosis increased to 15 yesterday from 10, unclear how great of a sample it was, patient was a very difficult stick and was only from a minimal amount of blood, unable to to run any other test -meropenem was added due to the increasing leukocytosis, and is back down to 10 today -Pulmonology is following as well -Continue Bronchodilators, chest physiotherapy -still requiring intermittent BIPAP/hFNC -continue lasix -discussed with pulm and ID - pt requiring high levels of oxygen / BIPAP, which would be more appropriate for LTAC and inappropriate for SNF Afib, persistent -due for labetalol 200mg bid now, there was confusion regarding home med, did not receive digoxin since admission, restarted on 01/20 -notable improvement, now 90-110s, with occasional very brief spikes to 120s PT ordered but patient has been too SOB to participate Increase activity as tolerated. Dispo: SW consulted for LTAC - patient agreeable Time Spent Managing Pts Care (In Minutes): 35
[2020-01-22] MEDS: ROSUVASTATIN 10 MG TAB PO SCH (20:52)
[2020-01-22] MEDS: ENSURE HIGH PROTEIN 237 ML CAN PO SCH (20:52)
[2020-01-23] MEDS: IPRATROPIUM BROM 0.5MG/2.5ML NEB SCH ×4 (01:13→19:50)
[2020-01-23] MEDS: Meropenem 1,000 MG in NA CHLORIDE 0.9% 100 ML IV SCH ×3 (01:15→16:53)
[2020-01-23 05:48] LABS: Absolute Lymphocytes (CBC) 0.6 K/uL (0.7-4.9); Basophils % 0.3 % (0-1.3); Hematocrit 34.2 % (39.6-49.0); Lymphocytes % 5.3 % (15.3-44.8); MPV 8.7 fL (7.6-11.3); RBC Red Blood Cell Count 4.47 M/uL (4.33-5.43)
[2020-01-23 06:02] LABS: BUN Blood Urea Nitrogen 23 mg/dL (7-18); Bicarbonate 38 mmol/L (21-32); Glucose Level 139 mg/dL (74-106); Magnesium 1.9 mg/dL (1.8-2.4); Potassium 4.2 mmol/L (3.5-5.1); Sodium Level 135 mmol/L (136-145)
[2020-01-23] MEDS: INSULIN -REGULAR HUMAN 50 UNIT/0.5 ML ML SQ SCH ×4 (07:30→21:38)
[2020-01-23] MEDS: FUROSEMIDE 40 MG TABLET PO SCH ×2 (08:32→16:52)
[2020-01-23] MEDS: APIXABAN 5 MG TABLET PO SCH ×2 (08:32→21:38)
[2020-01-23] MEDS: PRIMIDONE 50 MG TAB PO SCH ×3 (08:32→21:41)
[2020-01-23] MEDS: GUAIFENESIN 600 MG SA TAB PO SCH ×3 (08:33→21:38)
[2020-01-23] MEDS: SPIRONOLACTONE 25 MG TABLET PO SCH (08:33)
[2020-01-23] MEDS: allopurinoL 100 MG TAB PO SCH ×2 (08:33→21:39)
[2020-01-23] MEDS: DIGOXIN 0.125 MG TABLET PO SCH (08:33)
[2020-01-23] MEDS: LABETALOL HCL 100 MG TAB PO SCH ×2 (08:33→21:38)
[2020-01-23] MEDS: PANTOPRAZOLE 40MG TABLET PO SCH ×2 (08:33→21:39)
[2020-01-23] MEDS: TACROLIMUS 1 MG PO SCH ×2 (08:37→21:36)
[2020-01-23] MEDS: MYCOPHENOLATE MOFETIL 500 MG PO SCH ×2 (08:37→21:38)
[2020-01-23] MEDS: ARFORMOTEROL TARTRATE 15 MCG/2 ML VIAL.NEB NEB SCH ×2 (08:54→19:50)
[2020-01-23 09:04] LABS: Blood Morphology Comment NOT SEEN (NOT SEEN); Platelet Estimate ADEQ; Platelets, Giant FEW
[2020-01-23] MEDS: DOXYCYCLINE 100 MG in NA CHLORIDE 0.9% 100 ML IVPB SCH ×2 (09:09→21:36)
[2020-01-23] MEDS: DULOXETINE 30 MG CAP PO SCH (09:52)
[2020-01-23] MEDS: MONTELUKAST 10 MG TAB PO SCH (09:54)
[2020-01-23] MEDS: ENSURE HIGH PROTEIN 237 ML CAN PO SCH ×2 (09:55→21:00)
--- NOTE | 2020-01-23 10:02 | P.PN ---
Subjective Date of Service: 01/23/20 Chief Complaint: Respiratory failure Subjective: Improving (reports breathing a little better, was able to tolerate 3L NC yesterday evening for some time, BIPAP overnight. Reports pain in L arm - for 1-2 months when moves elbow/wrist, typically takes pain medication for this) Review of Systems 10-point ROS is otherwise unremarkable Physical Examination - Vital Signs Temperature: 97.8 F Blood Pressure: 123/64 Pulse: 111 Respirations: 17 Pulse Ox (%): 95 - Physical Exam General: Alert, In no apparent distress, Oriented x3 HEENT: Sclerae nonicteric Respiratory: Crackles/rales (mild bilaterally, on BIPAP) Cardiovascular: No edema, Irregular heart rate/rhythm (afib, 95-105s) Gastrointestinal: Soft and benign, No tenderness Musculoskeletal: Other (no swelling or tenderness of L hand/wrist/elbow, moderate pain with passive and active ROM) Neurological: Normal speech, Normal affect Assessment & Plan Physician Review Additional Text: acute on chronic respiratory failure with hypoxia and hypercapnia Pneumonia Chronic diastolic CHF COPD Afib, persistent DM2 Gout s/p renal transplant Acute on chronic respiratory failure with hypoxia and hypercapnia Pneumonia Chronic diastolic CHF -Sputum culture growing MRSA -reviewed sensitivities, on Doxy - ID consulted, recommend at least 2 more weeks of doxy -leukocytosis increased to 15 yesterday from 10, unclear how great of a sample it was, patient was a very difficult stick and was only from a minimal amount of blood, unable to to run any other test -meropenem was added due to the increasing leukocytosis -Pulmonology is following as well -Continue Bronchodilators, chest physiotherapy -still requiring intermittent BIPAP, continue Lasix -takes prednisone 5mg daily, will restart at 10mg BID -discussed with pulm and ID - pt requiring high levels of oxygen / BIPAP, which would be more appropriate for LTAC and inappropriate for SNF Afib, persistent -due for labetalol 200mg bid now, there was confusion regarding home med, did not receive digoxin since admission, restarted on 01/20 -notable improvement, now 90-110s, with occasional very brief spikes to 120s L arm pain -h/o gout, but not tender, has been taking allopurinol, will check uric acid level -will check x-ray of elbow -restarted home pain regimen, 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 Dispo: SW consulted for LTAC - patient agreeable Time Spent Managing Pts Care (In Minutes): 35
[2020-01-23] MEDS: predniSONE 10 MG TAB PO SCH ×2 (11:12→21:38)
--- NOTE | 2020-01-23 16:02 | RAD REPORT ---
EXAM DESCRIPTION: RAD - Elbow Left 2 View - 01/23/2020 3:51 pm CLINICAL HISTORY: pain with ROM Pain and swelling. COMPARISON: No comparisons FINDINGS: No bone or joint abnormality is seen.
--- NOTE | 2020-01-23 16:03 | RAD REPORT ---
EXAM DESCRIPTION: RAD - Wrist Left 2 View - 01/23/2020 3:51 pm CLINICAL HISTORY: pain with ROM Pain COMPARISON: No comparisons FINDINGS: No acute fracture evident. Moderate soft tissue swelling is seen along the lateral aspect of the wrist. Arthritic changes are present involving the radiocarpal joint. A few soft tissue stap les seen.
[2020-01-23] MEDS: ROSUVASTATIN 10 MG TAB PO SCH (21:39)
[2020-01-23] MEDS: HYDROCODONE/APAP 7.5/325 MG TAB PO PRN (21:39)
[2020-01-24] MEDS: Meropenem 1,000 MG in NA CHLORIDE 0.9% 100 ML IV SCH ×3 (00:01→16:41)
[2020-01-24] MEDS: IPRATROPIUM BROM 0.5MG/2.5ML NEB SCH ×4 (01:10→20:10)
[2020-01-24 06:26] LABS: Absolute Lymphocytes (CBC) 0.5 K/uL (0.7-4.9); Basophils % 0.4 % (0-1.3); Lymphocytes % 5.5 % (15.3-44.8); MPV 8.7 fL (7.6-11.3); RBC Red Blood Cell Count 4.46 M/uL (4.33-5.43)
[2020-01-24 06:37] LABS: BUN Blood Urea Nitrogen 22 mg/dL (7-18); Bicarbonate 38 mmol/L (21-32); Glucose Level 132 mg/dL (74-106); Magnesium 1.9 mg/dL (1.8-2.4); Potassium 4.1 mmol/L (3.5-5.1); Sodium Level 135 mmol/L (136-145)
[2020-01-24] MEDS: INSULIN -REGULAR HUMAN 50 UNIT/0.5 ML ML SQ SCH ×4 (07:30→21:00)
[2020-01-24] MEDS: ARFORMOTEROL TARTRATE 15 MCG/2 ML VIAL.NEB NEB SCH ×2 (07:45→20:10)
[2020-01-24] MEDS: ENSURE HIGH PROTEIN 237 ML CAN PO SCH ×2 (09:00→21:00)
[2020-01-24] MEDS: TACROLIMUS 1 MG PO SCH ×2 (09:41→22:16)
[2020-01-24] MEDS: MYCOPHENOLATE MOFETIL 500 MG PO SCH ×2 (09:42→22:15)
[2020-01-24] MEDS: SPIRONOLACTONE 25 MG TABLET PO SCH (09:43)
[2020-01-24] MEDS: MONTELUKAST 10 MG TAB PO SCH (09:43)
[2020-01-24] MEDS: GUAIFENESIN 600 MG SA TAB PO SCH ×3 (09:44→22:13)
[2020-01-24] MEDS: predniSONE 10 MG TAB PO SCH ×2 (09:44→22:14)
[2020-01-24] MEDS: DIGOXIN 0.125 MG TABLET PO SCH (09:45)
[2020-01-24] MEDS: PRIMIDONE 50 MG TAB PO SCH ×3 (09:45→22:14)
[2020-01-24] MEDS: FUROSEMIDE 40 MG TABLET PO SCH ×2 (09:45→16:41)
[2020-01-24] MEDS: PANTOPRAZOLE 40MG TABLET PO SCH ×2 (09:46→22:14)
[2020-01-24] MEDS: allopurinoL 100 MG TAB PO SCH ×2 (09:46→22:14)
[2020-01-24] MEDS: APIXABAN 5 MG TABLET PO SCH ×2 (09:46→22:14)
[2020-01-24] MEDS: DULOXETINE 30 MG CAP PO SCH (09:47)
[2020-01-24] MEDS: LABETALOL HCL 100 MG TAB PO SCH ×2 (09:48→22:13)
[2020-01-24] MEDS: DOXYCYCLINE 100 MG in NA CHLORIDE 0.9% 100 ML IVPB SCH ×2 (09:49→22:15)
--- NOTE | 2020-01-24 12:33 | P.PN ---
Subjective Date of Service: 01/24/20 Chief Complaint: Respiratory failure Subjective: Improving (Feeling better, breathing better. Reports he feels weak, has not gotten out of bed in several days) Review of Systems 10-point ROS is otherwise unremarkable Physical Examination - Vital Signs Temperature: 97.7 F Blood Pressure: 137/75 Pulse: 96 Respirations: 18 Pulse Ox (%): 93 - Physical Exam General: Alert, In no apparent distress, Oriented x3 HEENT: Sclerae nonicteric Respiratory: Clear to auscultation bilaterally, Diminished (Bases bilaterally on 3 L nasal cannula) Cardiovascular: Irregular heart rate/rhythm (irregularly irregular, 90s-105) Gastrointestinal: Soft and benign, Non-distended, No tenderness Musculoskeletal: Other (pain with ROM of L thumb/wrist/elbow; slight swelling of L hand) Assessment & Plan Physician Review Additional Text: acute on chronic respiratory failure with hypoxia and hypercapnia Pneumonia, MRSA Chronic diastolic CHF COPD Afib, persistent DM2 Gout s/p renal transplant Acute on chronic respiratory failure with hypoxia and hypercapnia Pneumonia Chronic diastolic CHF -Sputum culture growing MRSA -reviewed sensitivities, on Doxy - ID consulted, recommend at least 2 more weeks of doxy (from 01/15) -repeat blood cultures remain negative; meropenem was added due to the increasing leukocytosis which has improved; will discuss with ID -Pulmonology is following as well -Continue Bronchodilators, chest physiotherapy -still requiring intermittent BIPAP, continue Lasix -takes prednisone 5mg daily at home, restarted at 10mg BID on 01/22 -patient's breathing seems to be improving, has been on 3 L nasal cannula for most of the day the past 2 days. Requiring BiPAP at night. 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 Dispo: awaiting for approval for LTAC, patient seems to be improving very slowly Time Spent Managing Pts Care (In Minutes): 35
[2020-01-24] MEDS: HYDROCODONE/APAP 7.5/325 MG TAB PO PRN (22:13)
[2020-01-24] MEDS: ROSUVASTATIN 10 MG TAB PO SCH (22:14)
[2020-01-25] MEDS: IPRATROPIUM BROM 0.5MG/2.5ML NEB SCH ×4 (02:00→19:50)
[2020-01-25] MEDS: Meropenem 1,000 MG in NA CHLORIDE 0.9% 100 ML IV SCH ×2 (02:16→09:54)
[2020-01-25 05:52] LABS: BUN Blood Urea Nitrogen 30 mg/dL (7-18); Bicarbonate 38 mmol/L (21-32); Glucose Level 137 mg/dL (74-106); Magnesium 1.7 mg/dL (1.8-2.4); Potassium 4.5 mmol/L (3.5-5.1); Sodium Level 138 mmol/L (136-145)
[2020-01-25] MEDS: INSULIN -REGULAR HUMAN 50 UNIT/0.5 ML ML SQ SCH ×4 (07:30→21:03)
[2020-01-25] MEDS: ARFORMOTEROL TARTRATE 15 MCG/2 ML VIAL.NEB NEB SCH ×2 (07:43→19:50)
[2020-01-25] MEDS: ENSURE HIGH PROTEIN 237 ML CAN PO SCH ×2 (09:00→21:00)
[2020-01-25] MEDS ORDERED: MAGNESIUM SULFATE 1 gm IVPB 1 GM/100 ML BAG IV ONE (09:00)
[2020-01-25] MEDS: PANTOPRAZOLE 40MG TABLET PO SCH ×2 (09:51→21:01)
[2020-01-25] MEDS: MONTELUKAST 10 MG TAB PO SCH (09:51)
[2020-01-25] MEDS: DULOXETINE 30 MG CAP PO SCH (09:51)
[2020-01-25] MEDS: LABETALOL HCL 100 MG TAB PO SCH ×2 (09:51→21:01)
[2020-01-25] MEDS: allopurinoL 100 MG TAB PO SCH ×2 (09:51→21:01)
[2020-01-25] MEDS: PRIMIDONE 50 MG TAB PO SCH ×3 (09:52→21:00)
[2020-01-25] MEDS: FUROSEMIDE 40 MG TABLET PO SCH ×2 (09:52→17:27)
[2020-01-25] MEDS: predniSONE 10 MG TAB PO SCH ×2 (09:52→21:01)
[2020-01-25] MEDS: DIGOXIN 0.125 MG TABLET PO SCH (09:52)
[2020-01-25] MEDS: GUAIFENESIN 600 MG SA TAB PO SCH ×3 (09:52→21:00)
[2020-01-25] MEDS: SPIRONOLACTONE 25 MG TABLET PO SCH (09:52)
[2020-01-25] MEDS: APIXABAN 5 MG TABLET PO SCH ×2 (09:54→21:00)
[2020-01-25] MEDS: MYCOPHENOLATE MOFETIL 500 MG PO SCH ×2 (09:55→21:02)
[2020-01-25] MEDS: DOXYCYCLINE 100 MG in NA CHLORIDE 0.9% 100 ML IVPB SCH (09:55)
[2020-01-25] MEDS: TACROLIMUS 1 MG PO SCH ×2 (09:55→21:01)
--- NOTE | 2020-01-25 11:43 | P.PN ---
Subjective Date of Service: 01/25/20 Chief Complaint: Respiratory failure Subjective: Improving (continues to feel breathing is easier / better. Had good sleep last night has been stable over weeken on 3L NC during the day and his home BIPAP at night) Physical Examination - Vital Signs Temperature: 96.9 F Blood Pressure: 113/61 Pulse: 100 Respirations: 28 Pulse Ox (%): 95 - Physical Exam General: Alert, In no apparent distress, Oriented x3 HEENT: Sclerae nonicteric Respiratory: Clear to auscultation bilaterally, Diminished (at bases, on BIPAP) Cardiovascular: Edema (trace edema to mid-tibia bilaterally), Irregular heart rate/rhythm (irregularly irregular- HR: 88) Gastrointestinal: Soft and benign, Non-distended, No tenderness Musculoskeletal: Other (pain of elbow/wrist with ROM) Integumentary: Other (few scattered ecchymosis on extremities) Neurological: Normal speech, Normal affect Assessment & Plan Physician Review Additional Text: acute on chronic respiratory failure with hypoxia and hypercapnia Pneumonia, MRSA Chronic diastolic CHF COPD Afib, persistent DM2 Gout s/p renal transplant Acute on chronic respiratory failure with hypoxia and hypercapnia Pneumonia Chronic diastolic CHF -Sputum culture growing MRSA -reviewed sensitivities, on Doxy - ID consulted, recommend at least 2 more weeks of doxy (from 01/15) -repeat blood cultures remain negative; meropenem was added due to the increasing leukocytosis which has improved; will discuss with ID today, possibly de-escalate -Pulmonology is following as well -Continue Bronchodilators, chest physiotherapy -patient's breathing seems to be improving, has been on 3 L nasal cannula during the day for past 2-3 days. Requiring home BiPAP at night. -takes prednisone 5mg daily at home, restarted at 10mg BID on 01/22 -discussed with pulmonology, pt has improved and appropriate for SNF, will pursue SNF placement, pt agreeable - [place] a place in [place] Af, persistent -continue labetaol 200mg BID, restarted home digoxin on 01/20, with improvement of rate control -mostly in 80-90s, but does increase to 100-110s before AM dose it seems L arm (wrist/elbow) pain -x-rays with arthritis, no other acute finding -pain improved today, restarted home pain regimen, PHYSICS AND ASTRONOMY PROFESSOR reviewed, no red flags re-consulted PT now that pt is breathing more comfortably Dispo: SW consulted for SNF placement Time Spent Managing Pts Care (In Minutes): 35
--- NOTE | 2020-01-25 12:21 | P.PN ---
Subjective Date of Service: 01/30/20 Chief Complaint: Respiratory failure Patient is feeling weak able to get up from the bed receiving physical therapy shortness of breath has improved white count is back to normal Review of Systems General: Weakness Respiratory: Shortness of Breath Physical Examination - Vital Signs Temperature: 96.9 F Blood Pressure: 113/61 Pulse: 100 Respirations: 28 Pulse Ox (%): 95 - Physical Exam General: Alert, Oriented x3 Respiratory: Clear to auscultation bilaterally, Diminished Cardiovascular: No edema, Irregular heart rate/rhythm Assessment & Plan - Problems (Diagnosis) (1) Pneumonia Status: Acute Plan: Patient is admitted with pneumonia is white count is normal vital signs are all stable change to p.o. doxycycline and levofloxacin Qualifiers: Pneumonia type: due to unspecified organism (2) Respiratory failure Status: Acute Plan: Patient's condition is improving oxygenation satisfactory electronic data interchange specialist to home BiPAP chest x-ray ordered
--- NOTE | 2020-01-25 13:46 | RAD REPORT ---
EXAM DESCRIPTION: RAD - Chest Single View - 01/25/2020 1:36 pm CLINICAL HISTORY: Pneumonia COMPARISON: January 21 TECHNIQUE: AP portable chest image was obtained 01/25/2020 1:36 pm . FINDINGS: Pleural and parenchymal opacification in the mid and lower right lung field is again ident ified. This is similar or fractionally worse than January 21. No improvement has occurred. No progre ssive left lung field finding. Heart size is normal, decreased slightly from comparison. Central pulmonary vasculature within normal limits. Trachea is midline. No pneumothorax. No acute bony abnormality seen. No acute aortic finding s suspected. IMPRESSION: Right base pleural and parenchymal opacification similar or fractionally worse than Nove mber 27. No improvement from prior study.
--- NOTE | 2020-01-25 14:22 | PN ---
Subjective: The patient is sitting in bed, eating. Continued to have shortness of breath, currently on 2-1/2 L nasal cannula, doing 94% sats. Objective: Vital Signs: Temperature 96.9, pulse 100, respirations 28, blood pressure 113/61. Lungs: Basal crackles. Heart: S1, S2. Regular. Abdomen: Soft, nontender. Bowel sounds present. Extremities: Trace edema. Laboratory Data: Shows WBC 10,000, hemoglobin 10.8, platelets are 378. Chemistry shows sodium 138, potassium 4.5, chloride 95, bicarb 38, BUN 30, creatinine 0.5, glucose 137. Micro data; MRSA sputum. The patient is currently being treated with doxycycline and Levaquin. Assessment And Plan: Methicillin-resistant Staphylococcus aureus pneumonia. Continue current antibi otics and continue respiratory and nutritional support. We will follow the patient as needed. NF/MODL Voice ID: [id number] Report ID: [id number]
[2020-01-25] MEDS: DOXYCYCLINE 100 MG CAP PO SCH (21:00)
[2020-01-25] MEDS: ROSUVASTATIN 10 MG TAB PO SCH (21:01)
[2020-01-26] MEDS: IPRATROPIUM BROM 0.5MG/2.5ML NEB SCH ×3 (01:20→13:25)
[2020-01-26 06:15] LABS: Absolute Lymphocytes (CBC) 0.7 K/uL (0.7-4.9); Basophils % 0.4 % (0-1.3); Hematocrit 35.6 % (39.6-49.0); Lymphocytes % 9.5 % (15.3-44.8); MPV 8.4 fL (7.6-11.3); RBC Red Blood Cell Count 4.55 M/uL (4.33-5.43)
[2020-01-26 06:26] LABS: BUN Blood Urea Nitrogen 34 mg/dL (7-18); Bicarbonate 37 mmol/L (21-32); Glucose Level 130 mg/dL (74-106); Potassium 4.4 mmol/L (3.5-5.1); Sodium Level 137 mmol/L (136-145)
[2020-01-26] MEDS: INSULIN -REGULAR HUMAN 50 UNIT/0.5 ML ML SQ SCH ×3 (07:30→16:30)
[2020-01-26] MEDS: ARFORMOTEROL TARTRATE 15 MCG/2 ML VIAL.NEB NEB SCH (07:55)
[2020-01-26] MEDS ORDERED: levoFLOXacin 500 MG TAB PO SCH (09:00)
[2020-01-26] MEDS: ENSURE HIGH PROTEIN 237 ML CAN PO SCH (09:00)
[2020-01-26] MEDS ORDERED: CEPACOL LOZENGES PO PRN (09:38)
[2020-01-26] MEDS: TACROLIMUS 1 MG PO SCH (10:16)
[2020-01-26] MEDS: MYCOPHENOLATE MOFETIL 500 MG PO SCH (10:16)
[2020-01-26] MEDS: GUAIFENESIN 600 MG SA TAB PO SCH ×2 (10:18→15:22)
[2020-01-26] MEDS: DOXYCYCLINE 100 MG CAP PO SCH (10:18)
[2020-01-26] MEDS: APIXABAN 5 MG TABLET PO SCH (10:18)
[2020-01-26] MEDS: DULOXETINE 30 MG CAP PO SCH (10:19)
[2020-01-26] MEDS: LABETALOL HCL 100 MG TAB PO SCH (10:19)
[2020-01-26] MEDS: allopurinoL 100 MG TAB PO SCH (10:20)
[2020-01-26] MEDS: MONTELUKAST 10 MG TAB PO SCH (10:20)
[2020-01-26] MEDS: SPIRONOLACTONE 25 MG TABLET PO SCH (10:20)
[2020-01-26] MEDS: PRIMIDONE 50 MG TAB PO SCH ×2 (10:20→15:22)
[2020-01-26] MEDS: DIGOXIN 0.125 MG TABLET PO SCH (10:21)
[2020-01-26] MEDS: PANTOPRAZOLE 40MG TABLET PO SCH (10:21)
[2020-01-26] MEDS: FUROSEMIDE 40 MG TABLET PO SCH ×2 (10:21→17:44)
[2020-01-26] MEDS: predniSONE 10 MG TAB PO SCH (11:21)
--- NOTE | 2020-01-26 11:55 | P.PN ---
Subjective Date of Service: 01/26/20 Chief Complaint: Respiratory failure Patient is complaining of sore throat, otherwise he is doing better today. He reports good sleep. He has been tolerating BiPAP with nasal mask. Physical Examination - Vital Signs Temperature: 96.8 F Blood Pressure: 145/83 Pulse: 101 Respirations: 19 Pulse Ox (%): 95 - Physical Exam General: Alert, In no apparent distress Neck: Supple Respiratory: Normal air movement, Crackles/rales (Right) Cardiovascular: No edema, Normal S1 S2, Irregular heart rate/rhythm Gastrointestinal: Normal bowel sounds, Soft and benign, Non-distended, No tenderness Musculoskeletal: No swelling, No tenderness Integumentary: No rashes, No erythema Neurological: Normal speech, Other (Non focal) Assessment And Plan - Current Problems (Diagnosis) (1) Pneumonia Current Visit: Yes Status: Acute Qualifiers: Pneumonia type: due to unspecified organism (2) Chronic diastolic heart failure Current Visit: Yes Status: Acute (3) COPD (chronic obstructive pulmonary disease) Current Visit: No Status: Acute (4) Atrial fibrillation Current Visit: No Status: Chronic Qualifiers: Atrial fibrillation type: longstanding persistent Qualified Code(s): I48.11 - Longstanding persistent atrial fibrillation (5) Diabetes Current Visit: No Status: Chronic Qualifiers: Diabetes mellitus type: type 2 Diabetes mellitus chcf insulin use: without chcf use Diabetes mellitus complication status: without complication Qualified Code(s): E11.9 - Type 2 diabetes mellitus without complications (6) Status post kidney transplant Current Visit: No Status: Chronic (7) Acute on chronic respiratory failure with hypoxia and hypercapnia Current Visit: No Status: Acute - Plan Patient has clinically improved. Currently on Levaquin and doxycycline Infectious disease input appreciated. Patient is slated for 2 weeks of antibiotics. Continue Bronchodilators. BiPAP ventilation Continue home medications for atrial fibrillation, kidney transplant. Continue home antihypertensives. Continue Lasix and Aldactone. Increase activity as tolerated. Continue PT. He is planned for disposition to SNF.
[2020-01-26 14:00] VITALS: O2SAT 93
--- NOTE | 2020-01-26 14:11 | P.DS ---
Admission Date: 01/13/20 Discharge Date: 01/26/20 Disposition: TRANSFER TO CUSTODIAL Discharge Condition: FAIR Reason for Admission: Respiratory failure - Problems (1) Pneumonia Current Visit: Yes Status: Acute Qualifiers: Pneumonia type: due to unspecified organism (2) Chronic diastolic heart failure Current Visit: Yes Status: Acute (3) Atrial fibrillation Current Visit: No Status: Chronic Qualifiers: Atrial fibrillation type: longstanding persistent Qualified Code(s): I48.11 - Longstanding persistent atrial fibrillation (4) Diabetes Current Visit: No Status: Chronic Qualifiers: Diabetes mellitus type: type 2 Diabetes mellitus 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 insulin use: without 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 use Diabetes mellitus complication status: without complication Qualified Code(s): E11.9 - Type 2 diabetes mellitus without complications (5) Status post kidney transplant Current Visit: No Status: Chronic (6) Acute on chronic respiratory failure with hypoxia and hypercapnia Current Visit: No Status: Acute (7) MRSA (methicillin resistant staphylococcus aureus) pneumonia Current Visit: Yes Status: Acute Brief History of Present Illness: 74-year-old gentleman with a history of COPD, heart failure, kidney transplant presented to the emergency department with a complaint of fever and chills, shortness of breath and cough of 2 days duration. Patient reports chills, denied chest pain. Chest x-ray done in the emergency department demonstrates right lower lobe pneumonia. Temperature of 100 was recorded in the ED. Patient has leukocytosis. Lactate is normal. Blood cultures taking and patient admitted for further management of pneumonia. Hospital Course: Patient admitted to the medical floor and treated aggressively with IV antibiotics. Acute respiratory failure was also treated with BiPAP and high- flow oxygen. Patient response to treatment was slow. Patient was seen by pulmonary and infectious disease. His sputum culture grew MRSA which is sensitive to vancomycin and tetracycline. Doxycycline was added to the Levaquin. Patient subsequent improved with treatment. He was later maintained on home BiPAP settings. He is on kidney transplant rejection medications which were continued throughout the hospital stay. Patient had elevated blood pressure which was managed with home dose labetalol. His atrial fibrillation was also managed with digoxin and labetalol. He was treated with arfomoterol nebs, Proventil nebs. and oral prednisone for COPD exacerbation. Patient seen by physical therapy. He was able to participate in PT but continued to have significantly impaired mobility and will benefit from skilled rehab. Patient is deemed clinically stable for discharge today to continue rehab at [facility]. Vital Signs/Physical Exam: Temp Pulse Resp BP Pulse Ox 96.9 F 95 H 19 112/67 90 L 01/26/20 12:00 01/26/20 12:00 01/26/20 12:00 01/26/20 12:00 01/26/20 12:00 General: Alert, In no apparent distress HEENT: Mucous membr. moist/pink Neck: JVD not distended Respiratory: Normal air movement, Crackles/rales (Right lung) Cardiovascular: No edema, Normal S1 S2, Irregular heart rate/rhythm Gastrointestinal: Normal bowel sounds, Soft and benign, No tenderness Musculoskeletal: No swelling, No tenderness Neurological: Other (Nonfocal) Laboratory Data at Discharge: WBC 7.3 K/uL (4.3-10.9) D 01/26/20 05:47 Hgb 11.2 g/dL (13.6-17.9) L 01/26/20 05:47 Hct 35.6 % (39.6-49.0) L 01/26/20 05:47 Plt Count 446 K/uL (152-406) H 01/26/20 05:47 PT 15.2 SECONDS (9.5-12.5) H 01/13/20 10:55 INR 1.29 01/13/20 10:55 APTT 27.3 SECONDS (24.3-36.9) 01/13/20 10:55 Sodium 137 mmol/L (136-145) 01/26/20 05:47 Potassium 4.4 mmol/L (3.5-5.1) 01/26/20 05:47 BUN 34 mg/dL (7-18) H 01/26/20 05:47 Creatinine 0.59 mg/dL (0.55-1.3) 01/26/20 05:47 Glucose 130 mg/dL (74-106) H 01/26/20 05:47 Uric Acid 5.5 mg/dL (3.5-7.2) 01/23/20 05:10 Phosphorus 3.2 mg/dL (2.5-4.9) 01/16/20 05:08 Magnesium 2.0 mg/dL (1.8-2.4) 01/26/20 05:47 Total Bilirubin 1.1 mg/dL (0.2-1.0) H 01/13/20 10:55 AST 11 U/L (15-37) L 01/13/20 10:55 ALT 13 U/L (12-78) 01/13/20 10:55 Alkaline Phosphatase 54 U/L (45-117) 01/13/20 10:55 Amylase 20 U/L (25-115) L 01/13/20 10:55 Lipase 27 U/L (73-393) L 01/13/20 10:55 Home Medications: Apixaban [Eliquis] 5 mg PO BID 09/30/17 Carboxymethylcellulose Sodium [Refresh Liquigel] 1 drop EACH EYE BID PRN 09/30/17 Cyclosporine [Restasis] 1 drop EACH EYE BID 09/30/17 Digoxin [Lanoxin*] 1 tab PO DAILY 09/30/17 Furosemide [Lasix] 40 mg PO BIDWM 09/30/17 Insulin Aspart Prot/Insuln Asp [Novolog Mix 70-30 Flexpen] 20 unit SQ BREAKFAST 09/30/17 Insulin Aspart Prot/Insuln Asp [Novolog Mix 70-30 Flexpen] 20 unit SQ DAILY AT SUPPER 09/30/17 Labetalol HCl [Trandate] 200 mg PO BID 09/30/17 Mycophenolate Mofetil [Cellcept] 2 tab PO Q12H 09/30/17 Pantoprazole Sodium [Protonix] 40 mg PO BID 09/30/17 Potassium Chloride [Klor-Con 10] 10 meq PO DAILY 09/30/17 Primidone [Mysoline] 50 mg PO TID 09/30/17 Rosuvastatin [Crestor*] 10 mg PO BEDTIME 09/30/17 Tacrolimus [Prograf] 3 mg PO Q12HR 09/30/17 allopurinoL [Allopurinol] 100 mg PO BID 09/30/17 Cholestyramine (with Sugar) [Cholestyramine Packet] 2 packet PO BEDTIME PRN 02/04/19 Tafluprost/Pf [Zioptan 0.0015% Eye Drops] 1 gtt EACH EYE BEDTIME 02/04/19 Fluticasone/Umeclidin/Vilanter [Trelegy Ellipta 100-62.5-25] 1 each IH DAILY #30 blst.w.dev 02/07/19 Duloxetine HCl 30 mg PO DAILY 03/20/19 Montelukast [Singulair*] 10 mg PO DAILY 06/17/19 Spironolactone [Aldactone] 50 mg PO DAILY 06/17/19 Emollient Combination No.113 [Soothe and Cool Skin Cream] 1 vinicio TOP BEDTIME 01/14/20 Arformoterol Tartrate [Brovana] 15 mcg NEB BIDRESP #0 vial.neb 01/26/20 Dextromethorphan/Benzocaine [Cepacol Sorethroat-Cough Curry] 1 each PO Q6H PRN #30 lozenge 01/26/20 Doxycycline Hyclate 100 mg PO BID #14 tablet 01/26/20 Ensure High Protein 237 ml PO BID can 01/26/20 Guaifenesin [Mucinex] 600 mg PO BID #60 tab.er.12h 01/26/20 Hydrocodone 7.5/APAP 325 [[place] 7.5/325 mg*] 1 tab PO Q8HP PRN tab 01/26/20 Ipratropium Neb [Atrovent*] 0.5 mg NEB [id number] amp 01/26/20 Trazodone [Desyrel*] 50 mg PO BEDTIME PRN PRN tablet 01/26/20 levoFLOXacin [Levaquin] 500 mg PO DAILY #7 tab 01/26/20 predniSONE [Deltasone] 5 mg PO DAILY #60 tab 01/26/20 New Medications: Dextromethorphan/Benzocaine [Cepacol Sorethroat-Cough Curry] 1 each PO Q6H PRN #30 lozenge PRN Reason: Sore Throat Doxycycline Hyclate 100 mg PO BID #14 tablet levoFLOXacin [Levaquin] 500 mg PO DAILY #7 tab Guaifenesin [Mucinex] 600 mg PO BID #60 tab.er.12h predniSONE [Deltasone] 5 mg PO DAILY #60 tab Diet: ADA Activity: Fall precautions Followup: Jimmy Almendarez MD [Primary Care Provider] - (within 2 weeks.) Justin Kitchen MD [ACTIVE - CAN ADMIT] - (1 month.) Time spent managing pt's care (in minutes): 46
[2020-01-30 20:07] VITALS: BP 116/65; TEMP 97.6
== END 2020-01-26 18:10 | DRG 177 ==
LOC: ER 10:15 → ERHOLD 13:46 → 2ND 21:52
PROVIDERS: ADMIT Internal Medicine; ATTEND Internal Medicine
PROC: 5A09557 Assistance with Respiratory Ventilation, Greater than 96 Consecutive Hours, Continuous Positive Airway Pressure (ICD-10-PCS; 2020-01-13)
PROC: 02HV33Z Insertion of Infusion Device into Superior Vena Cava, Percutaneous Approach (ICD-10-PCS; principal; 2020-01-22)
DX: J15.212 Pneumonia due to Methicillin resistant Staphylococcus aureus (principal); J96.21 Acute and chronic respiratory failure with hypoxia; J96.22 Acute and chronic respiratory failure with hypercapnia; Z94.0 Kidney transplant status; J44.0 Chronic obstructive pulmonary disease with (acute) lower respiratory infection; I48.11 Longstanding persistent atrial fibrillation; I50.32 Chronic diastolic (congestive) heart failure; J44.1 Chronic obstructive pulmonary disease with (acute) exacerbation; I11.0 Hypertensive heart disease with heart failure; E78.5 Hyperlipidemia, unspecified; K21.9 Gastro-esophageal reflux disease without esophagitis; M79.602 Pain in left arm; M10.9 Gout, unspecified; E11.9 Type 2 diabetes mellitus without complications; Z99.81 Dependence on supplemental oxygen; Z88.1 Allergy status to other antibiotic agents; Z88.5 Allergy status to narcotic agent; Z88.8 Allergy status to other drugs, medicaments and biological substances; Z79.52 Long term (current) use of systemic steroids; Z79.01 Long term (current) use of anticoagulants; Z79.899 Other long term (current) drug therapy; Z79.4 Long term (current) use of insulin; Z96.651 Presence of right artificial knee joint; Z96.641 Presence of right artificial hip joint; Z90.49 Acquired absence of other specified parts of digestive tract; Z20.828 Contact with and (suspected) exposure to other viral communicable diseases
CPT/HCPCS: 36415; 36569; 71045; 80048; 80076; 81003; 81015; 82150; 82550; 82553; 82805; 82947; 83605; 83690; 83735; 84100; 84145; 84484; 84550; 85025; 85610; 85730; 87040; 87070; 87077; 87186; 87205; 87804; 93005; 94002; 94003; 94640; 94660; 94667; 94668; 94760; 96365; 97110; 97116; 97161; 97530; 99285; J0456; J1644; J1940; J2185; J2405; J3370; J3475; J7030; J7040; J7050; J7512; J7605; U0002; U0003

== ENCOUNTER 2020-07-18 11:18 | Inpatient (IN) | payer OTHER ==
[2020-07-18] MEDS ORDERED: IPRATROPIUM BROM 0.5MG/2.5ML ONE ×2 (12:29→19:50)
[2020-07-18] MEDS ORDERED: ALBUTEROL 2.5 MG/3 ML NEB SOL ONE ×2 (12:29→19:50)
[2020-07-18 12:41] LABS: Absolute Lymphocytes (CBC) 0.4 K/uL (0.7-4.9); Basophils % 0.2 % (0-1.3); Hematocrit 32.9 % (39.6-49.0); Lymphocytes % 2.5 % (15.3-44.8); MPV 8.9 fL (7.6-11.3); RBC Red Blood Cell Count 4.01 M/uL (4.33-5.43)
[2020-07-18 12:50] LABS: Protime INR 1.42
[2020-07-18 13:03] LABS: ALT/SGPT 10 U/L (12-78); AST/SGOT 10 U/L (15-37); Alkaline Phosphatase 56 U/L (45-117); BUN Blood Urea Nitrogen 19 mg/dL (7-18); Bicarbonate 28 mmol/L (21-32); Bilirubin Direct 0.2 mg/dL (0-0.2); Glucose Level 134 mg/dL (74-106); Magnesium 1.9 mg/dL (1.8-2.4); NT PRO-BNP 1949 pg/mL (<450); Potassium 4.2 mmol/L (3.5-5.1); Protein, Total 6.9 g/dL (6.4-8.2); Sodium Level 137 mmol/L (136-145); Troponin (Emerg Dept Use Only) < 0.02 ng/mL (0.0-0.045)
--- NOTE | 2020-07-18 13:21 | RAD REPORT ---
EXAM DESCRIPTION: RAD - Chest Single View - 07/18/2020 1:13 pm CLINICAL HISTORY: SOB Chest pain. COMPARISON: Chest Single View dated 01/25/2020; Chest Single View dated 01/22/2020; Chest Single Vie w dated 01/19/2020; Chest Single View dated 01/18/2020 FINDINGS: Portable technique limits examination quality. Mild to moderate pulmonary edema suspected. The heart is significantly enlarged in size. No displaced fractures. IMPRESSION: Mild to moderate CHF versus volume overload.
[2020-07-18 13:38] LABS: SARS-COV-2 RT PCR NEGATIVE (NEGATIVE)
[2020-07-18] MEDS ORDERED: FUROSEMIDE 20 MG/ 2ML VIAL ONE (14:18)
--- NOTE | 2020-07-18 14:53 | EDPHYS ---
Physician Documentation [facility] Name: Yunior Lewis Age: 75 yrs Sex: Male : 1945 Arrival Date: 07/18/2020 Time: 11:26 Bed 19 Private MD: ED Physician Cooper Loving HPI: 07/18 12:46 This 75 yrs old Male presents to ER via EMS with complaints of Shortness Of pm1 Breath. 12:46 The patient has shortness of breath at rest. Onset: The symptoms/episode began/occurred pm1 3 day(s) ago. Duration: The symptoms are continuous, and are steadily getting worse. The patient's shortness of breath is aggravated by exertion, , is alleviated by nothing. Associated signs and symptoms: Pertinent positives: productive cough, Pertinent negatives: chest pain, fever, nausea, vomiting. Severity of symptoms: in the emergency department the symptoms are worse. The patient has experienced similar episodes in the past, multiple times. It is unknown whether or not the patient has recently seen a physician. Historical: - Allergies: 11:36 Demerol; jl7 11:36 NSAIDS; jl7 11:36 PENICILLINS; jl7 11:36 Warfarin; jl7 - Home Meds: 11:36 tacrolimus 1 mg Oral cap every 12 hours [Active]; mycophenolate mofetil 500 mg Oral tab jl7 2 tabs 2 times per day [Active]; prednisone 5 mg Oral tab 1 tab once daily [Active]; pantoprazole 40 mg Oral TbEC 1 tab once daily [Active]; cholestyramine (bulk) miscellaneous powd daily [Active]; spironolactone 50 mg Oral tab 1 tab once daily [Active]; furosemide 40 mg Oral tab 1 tab 2 times per day [Active]; Eliquis 5 mg Oral tab 1 tab 2 times per day [Active]; digoxin 125 mcg Oral tab 1 tab once daily [Active]; primidone 50 mg Oral tab 1 tabs 3 times per day [Active]; labetalol 200 mg Oral tab 1 tab 2 times per day [Active]; allopurinol 100 mg Oral tab 1 tab 2 times per day [Active]; hydrocodone-acetaminophen 7.5-325 mg Oral tab 1 tab every 4 hours [Active]; rosuvastatin 10 mg Oral tab 1 tab once daily [Active]; Klor-Con 10 10 mEq Oral TbER 1 tab once daily [Active]; montelukast 10 mg Oral tab 1 tab once daily [Active]; TRELEGY Ellipta 100mcg fluticasone furate, 62.5mcg umeclidinium \T\ 25mcg 1 puff daily [Active]; Ventolin Rotahaler/Rotacaps 90 mcg Inhl [Active]; Novolin 70/30 Innolet Sub-Q 70-30 unit/mL [Active]; duloxetine 30 mg Oral cpDR 1 cap once daily [Active]; Restasis 0.05 % ophthalmic dpet 1 drop 2 times per day [Active]; Zioptan (PF) 0.0015 % ophthalmic dpet 1 drop once daily [Active]; ipratropium bromide 0.02 % inhalation soln [Active]; - PMHx: 11:36 CHF; COPD; Diabetes - IDDM; gastritis; Heart Murmur; Hyperlipidemia; Hypertension; jl7 Sleep Apnea; - PSHx: 11:36 kidney transplant; jl7 - Immunization history:: Adult Immunizations up to date, Client reports receiving the 1st dose of the Covid vaccine. - Social history:: Smoking status: Patient/guardian denies using tobacco, but has a distant history of tobacco abuse. ROS: 12:46 Abdomen/GI: Negative for abdominal pain, nausea, vomiting, diarrhea, and constipation, pm1 Back: Negative for injury and pain, MS/Extremity: Negative for injury and deformity, Skin: Negative for injury, rash, and discoloration. 12:46 : Negative for injury, bleeding, discharge, and swelling, Neuro: Negative for headache, weakness, numbness, tingling, and seizure. 12:46 Constitutional: Negative for fever, chills, and weight loss, Eyes: Negative for injury, pain, redness, and discharge, ENT: Negative for injury, pain, and discharge, Cardiovascular: Negative for chest pain, palpitations. Positive for bilateral pedal edema 12:46 Respiratory: Positive for cough, shortness of breath. Exam: 12:46 Constitutional: This is a well developed, well nourished patient who is awake, alert, pm1 and in no acute distress. Head/Face: Normocephalic, atraumatic. 12:46 Back: No spinal tenderness. No costovertebral tenderness. Full range of motion. Skin: Warm, dry with normal turgor. Normal color with no rashes, no lesions, and no evidence of cellulitis. MS/ Extremity: Pulses equal, no cyanosis. Neurovascular intact. Full, normal range of motion. 12:46 Eyes: Exam is negative for acute changes, Periorbital structures: appear normal, Pupils: no acute changes, Extraocular movements: no acute changes, Conjunctiva: normal. 12:46 ENT: Mouth: is normal, Lips: normal, Oral mucosa: normal, pink and intact, moist. 12:46 Chest/axilla: Exam negative for acute changes, Inspection: normal, Palpation: is normal. 12:46 Cardiovascular: Exam negative for acute changes, Rate: normal, Rhythm: irregular, Pulses: no pulse deficits are appreciated, Heart sounds: normal, normal S1and S2, Edema: pedal edema, that is mild. 12:46 Respiratory: the patient does not display signs of respiratory distress, Respirations: normal, Breath sounds: rales, that are mild, are heard diffusely. 12:46 Abdomen/GI: Inspection: abdomen appears normal, Palpation: abdomen is soft and non-tender, in all quadrants. 12:46 Neuro: Exam negative for acute changes, Orientation: is normal, Mentation: is normal, Motor: is normal, moves all fours. Vital Signs: 11:27 BP 131 / 67; Pulse 86; Resp 23 S; Temp 98.9(O); Pulse Ox 90% on R/A; Weight 99.79 kg 7 (R); Height 5 ft. 11 in. (180.34 cm); Pain 6/10; 12:43 BP 128 / 79; Pulse 89; Resp 21 S; Pulse Ox 100% on Nebulizer Mask; jl7 13:30 BP 135 / 78; Pulse 99; Resp 24; Pulse Ox 95% on 3 lpm NC; jl7 14:30 BP 126 / 76; Pulse 96; Resp 21 S; Pulse Ox 96% on 3 lpm NC; jl7 16:16 BP 100 / 66; Pulse 90; Resp 18; Pulse Ox 94% 3 lpm ; jl7 11:27 Body Mass Index 30.68 (99.79 kg, 180.34 cm) 7 MDM: 11:35 Patient medically screened. [facility] 14:40 Data reviewed: vital signs. Data interpreted: Pulse oximetry: on 2L(s) per nasal pm1 [place], is 100 %. Interpretation: normal. 14:45 Counseling: I had a detailed discussion with the patient and/or guardian regarding: the pm1 historical points, exam findings, and any diagnostic results supporting the discharge/admit diagnosis, lab results, radiology results, the need for further work-up and treatment in the hospital. 14:45 ED course: Patient with elevated WBC however patient takes steroids daily. Chest x-ray pm1 positive for mild to moderate CHF volume overload. Patient does not appear to have pneumonia or infiltrate. No fever. Therefore initial ER treatment with Lasix. No initial abx therapy started but blood cultures have been collected. 15:16 Physician consultation: Alana Navarrete was called at 14:48, was contacted at 15:16, pm1 regarding admission, patient's condition. 18:59 ED course: Discussed with Noreen, antibiotic therapy for pneumonia seen on CT pm1 chest already ordered. 07/18 12:00 Order name: Basic Metabolic Panel; Complete Time: 13:44 pm1 07/18 12:00 Order name: CBC with Diff; Complete Time: 13:44 pm1 07/18 12:00 Order name: LFT's; Complete Time: 13:44 pm1 07/18 12:00 Order name: Magnesium; Complete Time: 13:44 pm1 07/18 12:00 Order name: NT PRO-BNP; Complete Time: 13:44 pm07/18 12:00 Order name: PT-INR; Complete Time: 13:44 pm1 07/18 12:00 Order name: Troponin (emerg Dept Use Only); Complete Time: 13:44 pm1 07/18 12:01 Order name: Strep; Complete Time: 13:44 pm1 07/18 12:01 Order name: Blood Culture Adult (2) pm1 07/18 13:11 Order name: Throat Culture EDNC 07/18 13:38 Order name: COVID-19/FLU A+B; Complete Time: 13:44 EDNC 07/18 16:44 Order name: Sputum Culture jl7 07/18 12:00 Order name: XRAY Chest (1 view); Complete Time: 13:44 pm1 07/18 12:00 Order name: EKG; Complete Time: 12:01 pm1 07/18 12:00 Order name: Cardiac monitoring; Complete Time: 12:05 pm1 07/18 12:00 Order name: EKG - Nurse/Tech; Complete Time: 12:06 pm1 07/18 16:28 Order name: Diet Ada 2000 Jam; Complete Time: 16:29 jl7 07/18 17:06 Order name: Thorax Wo Con; Complete Time: 18:57 EDMS 07/18 17:37 Order name: Echo without Doppler (2D) EDMS 07/18 17:45 Order name: Basic Metabolic Panel EDMS 07/18 17:45 Order name: Basic Metabolic Panel EDMS 07/18 17:45 Order name: Troponin I EDMS 07/18 17:45 Order name: CBC with Automated Diff EDMS 07/18 17:45 Order name: CBC with Automated Diff EDMS 07/18 17:46 Order name: Urinalysis EDNC 07/18 12:00 Order name: IV Saline Lock; Complete Time: 12:47 pm1 07/18 12:00 Order name: Labs collected and sent; Complete Time: 12:47 pm1 07/18 12:00 Order name: O2 Per Protocol; Complete Time: 12:47 pm1 07/18 12:00 Order name: O2 Sat Monitoring; Complete Time: 12:47 pm1 Administered Medications: 12:43 Drug: Albuterol - atroVENT (ipratropium) (3:1) (2.5 mg - 0.5 mg) 3 ml Route: Nebulizer; jl7 16:17 Follow up: Response: No adverse reaction 7 14:15 Drug: Lasix (furosemide) 40 mg Route: IVP; Site: right forearm; jl7 16:17 Follow up: Response: No adverse reaction jl7 Disposition: 07/19 10:02 Co-signature as Attending Physician, Cooper Loving MD I agree with the assessment and marbella plan of care. Disposition: 07/18/20 14:52 Hospitalization ordered by Jesus Vinson for Observation. Preliminary diagnosis are Congestive heart failure - volume overload, Hypoxia. - Bed requested for Telemetry/MedSurg (observation). - Status is Observation. iw - Condition is Stable. - Problem is new. - Symptoms have improved. Signatures: Dispatcher [employer] EDSewtha Mehta RN RN dw Anderson, Corey, MD MD cha Williams, Irene, RN RN iw Marinas, Jamil, BLAKE DIRECTOR OF NUCLEAR MEDICINE pm1 Vimal Melendez, RN RN jl7 Corrections: (The following items were deleted from the chart) 07/18 12: 12:02 Influenza Screen (A \T\ B)+BA.LAB.BRZ ordered. EDMS EDMS 12:02 CORONAVIRUS+MR.LAB.BRZ ordered. EDMS EDMS 15:58 12:46 Constitutional: Negative for fever, chills, and weight loss, Eyes: Negative for pm1 injury, pain, redness, and discharge, ENT: Negative for injury, pain, and discharge, Cardiovascular: Negative for chest pain, palpitations, and edema, pm1 17:06 16:47 CT-LOW DOSE CT CHEST ordered. EDNC EDMS 18:37 14:52 Hospitalization Ordered by Jesus Vinson for Observation. Preliminary diagnosis dw is Congestive heart failure - volume overload; Hypoxia. Bed requested for Telemetry/MedSurg (observation). Status is Observation. Condition is Stable. Problem is new. Symptoms have improved. pm1 20:49 18:37 07/18/2020 14:52 Hospitalization Ordered by Jesus Vinson for Observation. iw Preliminary diagnosis is Congestive heart failure - volume overload; Hypoxia. Bed requested for Telemetry/MedSurg (observation). Status is Observation. Condition is Stable. Problem is new. Symptoms have improved. dw
--- NOTE | 2020-07-18 14:53 | ER ---
Nurse's Notes [facility] Name: Yunior Lewis Age: 75 yrs Sex: Male : 1945 Arrival Date: 07/18/2020 Time: 11:26 Bed 19 Private MD: Diagnosis: Congestive heart failure - volume overload;Hypoxia Presentation: 07/18 11:27 Chief complaint: EMS states: Toned out for SOB at home x 3 days, 125 mg Solu-medrol jl7 given in route. Coronavirus screen: Client denies travel out of the [place] in the last 14 days. congestion, cough unrelated to allergies, difficulty breathing, Client presents with at least one sign or symptom that may indicate coronavirus-19. Standard/surgical mask placed on the client. Provider contacted for isolation considerations. Ebola Screen: No symptoms or risks identified at this time. Initial Sepsis Screen: Does the patient meet any 2 criteria? No. Patient's initial sepsis screen is negative. Does the patient have a suspected source of infection? No. Patient's initial sepsis screen is negative. Risk Assessment: Do you want to hurt yourself or someone else? Patient reports no desire to harm self or others. Onset of symptoms was July 15, 2020. Care prior to arrival: Medication(s) given: Normal saline infusion, 100 ml 125 mg Solu-Medrol IVP IV initiated. 20 GA, in the right antecubital area, Glucose check: 127 Oxygen administered. via nasal cannula. Transition of care: patient was not received from another setting of care. 11:27 Method Of Arrival: EMS: [facility] 11:27 Acuity: JAQUAN 3 jl7 Triage Assessment: 11:36 General: Appears in no apparent distress. uncomfortable, Behavior is calm, cooperative, jl7 appropriate for age. Pain: Complains of pain in low back area Pain currently is 6 out of 10 on a pain scale. Pain began years ago. Neuro: Level of Consciousness is awake, alert, obeys commands, Oriented to person, place, time, situation. Cardiovascular: Heart tones present Murmur present Patient's skin is warm and dry. Rhythm is atrial fibrillation. Respiratory: Reports shortness of breath cough that is Airway is patent Respiratory effort is even, labored, Respiratory pattern is symmetrical, tachypnea Breath sounds are clear in right upper lobe, left upper lobe, right middle lobe, left lower lobe and right lower lobe Onset: The symptoms/episode began/occurred gradually, the patient has moderate shortness of breath. Derm: Skin is pink, warm \T\ dry. Historical: - Allergies: 11:36 Demerol; jl7 11:36 NSAIDS; jl7 11:36 PENICILLINS; jl7 11:36 Warfarin; jl7 - Home Meds: 11:36 tacrolimus 1 mg Oral cap every 12 hours [Active]; mycophenolate mofetil 500 mg Oral tab jl7 2 tabs 2 times per day [Active]; prednisone 5 mg Oral tab 1 tab once daily [Active]; pantoprazole 40 mg Oral TbEC 1 tab once daily [Active]; cholestyramine (bulk) miscellaneous powd daily [Active]; spironolactone 50 mg Oral tab 1 tab once daily [Active]; furosemide 40 mg Oral tab 1 tab 2 times per day [Active]; Eliquis 5 mg Oral tab 1 tab 2 times per day [Active]; digoxin 125 mcg Oral tab 1 tab once daily [Active]; primidone 50 mg Oral tab 1 tabs 3 times per day [Active]; labetalol 200 mg Oral tab 1 tab 2 times per day [Active]; allopurinol 100 mg Oral tab 1 tab 2 times per day [Active]; hydrocodone-acetaminophen 7.5-325 mg Oral tab 1 tab every 4 hours [Active]; rosuvastatin 10 mg Oral tab 1 tab once daily [Active]; Klor-Con 10 10 mEq Oral TbER 1 tab once daily [Active]; montelukast 10 mg Oral tab 1 tab once daily [Active]; TRELEGY Ellipta 100mcg fluticasone furate, 62.5mcg umeclidinium \T\ 25mcg 1 puff daily [Active]; Ventolin Rotahaler/Rotacaps 90 mcg Inhl [Active]; Novolin 70/30 Innolet Sub-Q 70-30 unit/mL [Active]; duloxetine 30 mg Oral cpDR 1 cap once daily [Active]; Restasis 0.05 % ophthalmic dpet 1 drop 2 times per day [Active]; Zioptan (PF) 0.0015 % ophthalmic dpet 1 drop once daily [Active]; ipratropium bromide 0.02 % inhalation soln [Active]; - PMHx: 11:36 CHF; COPD; Diabetes - IDDM; gastritis; Heart Murmur; Hyperlipidemia; Hypertension; jl7 Sleep Apnea; - PSHx: 11:36 kidney transplant; jl7 - Immunization history:: Adult Immunizations up to date, Client reports receiving the 1st dose of the Covid vaccine. - Social history:: Smoking status: Patient/guardian denies using tobacco, but has a distant history of tobacco abuse. Screenin:44 Abuse screen: Denies threats or abuse. Denies injuries from another. Nutritional jl7 screening: No deficits noted. Tuberculosis screening: No symptoms or risk factors identified. Fall Risk IV access (20 points). Total Marroquin Fall Scale indicates No Risk (0-24 pts). Assessment: 11:36 General: See triage assessment. jl7 12:44 Reassessment: Patient appears in no apparent distress at this time. No changes from jl7 previously documented assessment. Patient and/or family updated on plan of care and expected duration. Pain level reassessed. Patient is alert, oriented x 3, equal unlabored respirations, skin warm/dry/pink. 14:00 Reassessment: Patient appears in no apparent distress at this time. No changes from jl7 previously documented assessment. Patient and/or family updated on plan of care and expected duration. Pain level reassessed. Patient is alert, oriented x 3, equal unlabored respirations, skin warm/dry/pink. 15:00 Reassessment: Patient appears in no apparent distress at this time. No changes from jl7 previously documented assessment. Patient and/or family updated on plan of care and expected duration. Pain level reassessed. Patient is alert, oriented x 3, equal unlabored respirations, skin warm/dry/pink. 16:00 Reassessment: Patient appears in no apparent distress at this time. No changes from jl7 previously documented assessment. Patient and/or family updated on plan of care and expected duration. Pain level reassessed. Patient is alert, oriented x 3, equal unlabored respirations, skin warm/dry/pink. 16:17 Reassessment: Hospitalist at bedside assessing pt. jl7 Vital Signs: 11:27 BP 131 / 67; Pulse 86; Resp 23 S; Temp 98.9(O); Pulse Ox 90% on R/A; Weight 99.79 kg jl7 (R); Height 5 ft. 11 in. (180.34 cm); Pain 6/10; 12:43 BP 128 / 79; Pulse 89; Resp 21 S; Pulse Ox 100% on Nebulizer Mask; jl7 13:30 BP 135 / 78; Pulse 99; Resp 24; Pulse Ox 95% on 3 lpm NC; jl7 14:30 BP 126 / 76; Pulse 96; Resp 21 S; Pulse Ox 96% on 3 lpm NC; jl7 16:16 BP 100 / 66; Pulse 90; Resp 18; Pulse Ox 94% 3 lpm ; jl7 11:27 Body Mass Index 30.68 (99.79 kg, 180.34 cm) jl7 ED Course: 10:36 Maintain EMS IV. Dressing intact. Site clean \T\ dry. Gauge \T\ site: 22 R AC. jl 7 10:36 Initial lab(s) drawn, by ED staff, sent to lab. EKG done, by ED staff, reviewed by jl7 Jamil Smith NP. 11:26 Patient arrived in ED. tr6 11:26 Vimal Melendez, BRENDA is Primary Nurse. jl7 11:31 Triage completed. jl7 11:34 Jamil Smith, MACHINE ASSEMBLER FOR [employer] is PHCP. pm1 11:34 Cooper Loving MD is Attending Physician. pm1 11:36 Arm band placed on right wrist. jl7 11:40 Patient has correct armband on for positive identification. Placed in gown. Bed in low jl7 position. Call light in reach. Side rails up X2. technical support manager on. Pulse ox on. NIBP on. 12:20 Inserted saline lock: 20 gauge in right forearm, using aseptic technique. Blood jl7 collected. inserted by DEVYN Coronado Tech. 13:13 XRAY Chest (1 view) In Process Unspecified. EDMS 14:50 Jesus Vinson is Hospitalizing Provider. pm1 17:32 Thorax Wo Con In Process Unspecified. EDMS 19:41 Primary Nurse role handed off by Vimal Melendez, BRENDA mw2 20:48 No provider procedures requiring assistance completed. Patient admitted, IV remains in iw place. Administered Medications: 12:43 Drug: Albuterol - atroVENT (ipratropium) (3:1) (2.5 mg - 0.5 mg) 3 ml Route: Nebulizer; jl7 16:17 Follow up: Response: No adverse reaction jl7 14:15 Drug: Lasix (furosemide) 40 mg Route: IVP; Site: right forearm; jl7 16:17 Follow up: Response: No adverse reaction jl7 Output: 16:14 Urine: 700ml (Voided); Total: 700ml. jl7 Outcome: 14:52 Decision to Hospitalize by Provider. pm1 20:48 Admitted to Med/surg accompanied by tech, family with patient, via wheelchair, room iw 430, with oxygen. 20:48 Condition: good 20:48 Discharge instructions given to patient, family, Instructed on the need for admit, Demonstrated understanding of instructions, follow-up care. 20:49 Patient left the ED. iw Signatures: Dispatcher [employer] EDDede Rodriguez RN RN iw Jamil Smith, BLAKE MACHINE ASSEMBLER [employer] pm1 Vimal Melendez RN RN jl7 Lilian James mw2 Naty Cagle RN RN tr6
[2020-07-18] MEDS ORDERED: ACETAMINOPHEN 500 MG TAB PO PRN (17:37)
[2020-07-18] MEDS ORDERED: ONDANSETRON 4 MG/2 ML VIAL IV PRN (17:37)
[2020-07-18] MEDS ORDERED: GLUCAGON 1 MG/VIAL IM PRN (17:40)
[2020-07-18] MEDS ORDERED: D50W 25 GM/50 ML SYRINGE IV PRN (17:40)
--- NOTE | 2020-07-18 17:47 | P.HP ---
Certification for Inpatient Patient admitted to: Inpatient With expected LOS: >2 Midnights Patient will require the following post-hospital care: None Practitioner: I am a practitioner with admitting privileges, knowledge of patient current condition, hospital course, and medical plan of care. Services: Services provided to patient in accordance with Admission requirements found in Title 42 Section 412.3 of the Code of Federal Regulations Patient History Date of Service: 07/18/20 Reason for admission: SOB, Chest pain History of Present Illness: Patient is a 75-year-old male with a past medical history significant for CHF, hypertension, COPD, DM 2, HLD, ROSANA, kidney transplant-2010 who presents with complaint of shortness of breath and chest pain that has been ongoing for the past 3 days. Patient reports that he is on O2 therapy at 2 liters/minute and uses a CPAP at night. Patient indicated that chest pain is located in the left chest wall. Patient rated pain as a 6\10 in severity and described pain as throbbing in quality. Patient reports associated signs and symptoms of cough and congestion. Patient also reported that he had diarrhea 3 days ago but diarrhea has resolved. Patient denies any other signs or symptoms. Symptoms are aggravated by exertion and relieved by nothing. Patient decided to present to the hospital due to worsening symptoms. Allergies NSAIDS (Non-Steroidal Anti-Inflamma Allergy (Verified 01/13/20 22:44) stomach pains Penicillins Allergy (Verified 01/13/20 22:44) Itching/Hives/Rash aspirin Adverse Reaction (Verified 01/13/20 22:44) Rash warfarin Adverse Reaction (Verified 01/13/20 22:44) Rash Home Medications: Apixaban [Eliquis] 5 mg PO BID 09/30/17 Carboxymethylcellulose Sodium [Refresh Liquigel] 1 drop EACH EYE BID PRN 09/30/17 Cyclosporine [Restasis] 1 drop EACH EYE BID 09/30/17 Digoxin [Lanoxin*] 1 tab PO DAILY 09/30/17 Furosemide [Lasix] 40 mg PO BIDWM 09/30/17 Insulin Aspart Prot/Insuln Asp [Novolog Mix 70-30 Flexpen] 20 unit SQ BREAKFAST 09/30/17 Insulin Aspart Prot/Insuln Asp [Novolog Mix 70-30 Flexpen] 20 unit SQ DAILY AT SUPPER 09/30/17 Labetalol HCl [Trandate] 200 mg PO BID 09/30/17 Mycophenolate Mofetil [Cellcept] 2 tab PO Q12H 09/30/17 Pantoprazole Sodium [Protonix] 40 mg PO BID 09/30/17 Potassium Chloride [Klor-Con 10] 10 meq PO DAILY 09/30/17 Primidone [Mysoline] 50 mg PO TID 09/30/17 Rosuvastatin [Crestor*] 10 mg PO BEDTIME 09/30/17 Tacrolimus [Prograf] 3 mg PO Q12HR 09/30/17 allopurinoL [Allopurinol] 100 mg PO BID 09/30/17 Cholestyramine (with Sugar) [Cholestyramine Packet] 2 packet PO BEDTIME PRN 02/04/19 Tafluprost/Pf [Zioptan 0.0015% Eye Drops] 1 gtt EACH EYE BEDTIME 02/04/19 Fluticasone/Umeclidin/Vilanter [Trelegy Ellipta 100-62.5-25] 1 each IH DAILY #30 blst.w.dev 02/07/19 Duloxetine HCl 30 mg PO DAILY 03/20/19 Montelukast [Singulair*] 10 mg PO DAILY 06/17/19 Spironolactone [Aldactone] 50 mg PO DAILY 06/17/19 Emollient Combination No.113 [Soothe and Cool Skin Cream] 1 vinicio TOP BEDTIME 01/14/20 Arformoterol Tartrate [Brovana] 15 mcg NEB BIDRESP #0 vial.neb 01/26/20 Dextromethorphan/Benzocaine [Cepacol Sorethroat-Cough Curry] 1 each PO Q6H PRN #30 lozenge 01/26/20 Doxycycline Hyclate 100 mg PO BID #14 tablet 01/26/20 Ensure High Protein 237 ml PO BID can 01/26/20 Guaifenesin [Mucinex] 600 mg PO BID #60 tab.er.12h 01/26/20 Hydrocodone 7.5/APAP 325 [Brainard 7.5/325 mg*] 1 tab PO Q8HP PRN tab 01/26/20 Ipratropium Neb [Atrovent*] 0.5 mg NEB [id number] amp 01/26/20 Trazodone [Desyrel*] 50 mg PO BEDTIME PRN PRN tablet 01/26/20 levoFLOXacin [Levaquin] 500 mg PO DAILY #7 tab 01/26/20 predniSONE [Deltasone] 5 mg PO DAILY #60 tab 01/26/20 - Past Medical/Surgical History Diabetic: Yes -: COPD -: CHF -: A Fib -: DM -: Arthritis -: GERD -: HTN -: Gout -: HLD -: TREMORS -: R KNEE REPLACEMENT -: KIDNEY TRANSPLANT -: 40% STOMACH REMOVAL -: CARPAL TUNNEL REPAIR -: Rt Hip Replacement -: Skin graft to nose -: Cholecystectomy -: Appendectomy Psychosocial/ Personal History: Patient lives at home - Family History Father -: Heart disease, Hypertension, Diabetes Mother -: Hypertension, Stroke - Social History Smoking Status: Former smoker Smoking therapy provided: No Patient receptive to therapy: No Alcohol use: No CD- Drugs: No Caffeine use: Yes Place of Residence: Home Review of Systems General: Unremarkable Eyes: Unremarkable ENT: Unremarkable Respiratory: Cough, Shortness of Breath, SOB with Excertion Cardiovascular: Chest Pain, Unremarkable Gastrointestinal: Diarrhea, Unremarkable Genitourinary: Unremarkable Musculoskeletal: Unremarkable Integumentary: Unremarkable Neurological: Unremarkable Physical Examination - Physical Exam General: Alert, Oriented x3, Mild distress HEENT: Atraumatic, PERRLA, Mucous membr. moist/pink, EOMI, Sclerae nonicteric Neck: Supple, 2+ carotid pulse no bruit, No LAD, Without JVD or thyroid abnormality Respiratory: Diminished, Crackles/rales Cardiovascular: No edema, Regular rate/rhythm, Normal S1 S2 Capillary refill: <2 Seconds Gastrointestinal: Normal bowel sounds, No tenderness Musculoskeletal: No clubbing, No tenderness Integumentary: No rashes, No tenderness/swelling Neurological: Normal gait, Normal speech, Normal tone, Normal affect Lymphatics: No axilla or inguinal lymphadenopathy External genitalia: Deferred - Studies Laboratory Data (last 24 hrs) 07/18/20 12:20: PT 16.4 H, INR 1.42 07/18/20 12:20: WBC 14.70 H, Hgb 10.5 L, Hct 32.9 L, Plt Count 141 L 07/18/20 12:20: Sodium 137, Potassium 4.2, BUN 19 H, Creatinine 0.58, Glucose 134 H, Magnesium 1.9, Total Bilirubin 1.0, AST 10 L, ALT 10 L, Alkaline Phosphatase 56 Microbiology Data (last 24 hrs): 07/18/20 12:01 Throat Group A Streptococcus Rapid Screen - Final Assessment and Plan - Plan --Suspected Acute on chronic diastolic or systolic CHF exacerbation. Patient placed on diuresis with Lasix IV. Daily weights and strict I&O. Echocardiogram to assess LV\ valvular functions and wall motion. Continue supportive care. --Pneumonia. Chest x-ray initially indicated volume overload. CT Chest ordered-- reveals pneumonia. Patient placed on antibiotics, steroids, O2 therapy and neb treatment with Atrovent\ albuterol. --Afib. Continue Eliquis --Chest pain. Likely atypical. Will trend troponin--So far negative. Echocardiogram pending. Telemetry to monitor for any significant arrhythmia.. Continue supportive care. --Leukocytosis. Likely steroid induced. Blood cultures pending to rule out other possible causes. Continue antibiotics. --Acute on chronic COPD exacerbation. Continue current treatment regimen.. --Acute on Chronic respiratory failure with hypoxia. Continue current treatment regimen. --DM 2. BS monitoring with sliding scale insulin. --Hypertension. Stable. Continue home medications. --History of kidney transplant in 2010. Renal functions stable. Continue anti- rejection medications. --HLD. Continue home medication. --ROSANA. CPAP every hs. --GERD. Continue Protonix --DVT prophylaxis with Eliquis. Discharge Plan: Home Plan to discharge in: Greater than 2 days - Advance Directives Does patient have a Living Will: Yes Does patient have a Durable POA for Healthcare: Yes - Code Status/Comfort Care Code Status Assessed: Yes Code Status: Full Code Critical Care: No
--- NOTE | 2020-07-18 17:55 | RAD REPORT ---
EXAM DESCRIPTION: CT - Thorax Wo Con CLINICAL HISTORY: Chest pain SOB COMPARISON: Thorax Wo Con dated 02/04/2019; Chest Single View dated 07/18/2020 FINDINGS: There is a moderate sized area of lung consolidation in the medial left lower lobe with sm all amount of pleural effusion. This likely represents a left lower lobe pneumonia. Trace right pleur al fluid is also seen. No pneumothorax. The heart is mildly enlarged in size. No concerning bony finding. [place] kidneys appear atrophic. All CT scans are performed using dose optimization technique as appropriate and may include automated exposure control or mA/KV adjustment according to patient size. IMPRESSION: Moderate medial left lung base pneumonia.
[2020-07-18] MEDS: ALBUTEROL 2.5 MG/3 ML NEB SOL NEB SCH ×2 (19:35→20:00)
[2020-07-18] MEDS: IPRATROPIUM BROM 0.5MG/2.5ML NEB SCH ×2 (19:35→20:00)
[2020-07-18] MEDS ORDERED: HEPARIN 5000 UNIT/ML 1 ML VIAL SQ SCH (21:00)
[2020-07-18] MEDS ORDERED: APIXABAN 5 MG PO SCH (21:00)
[2020-07-18 21:07] VITALS: BMI 29.5
[2020-07-18] MEDS: INSULIN -REGULAR HUMAN 50 UNIT/0.5 ML ML SQ SCH (21:07)
[2020-07-18] MEDS ORDERED: AZITHROMYCIN 500 MG INJ IVPB ONE ×2 (21:27→21:37)
[2020-07-18] MEDS: AZITHROMYCIN IV 500 MG in NA CHLORIDE 0.9% 250 ML IVPB SCH (21:30)
[2020-07-18] MEDS ORDERED: NA CHLORIDE 0.9% 250 ML ONE ×2 (21:35→21:38)
[2020-07-18 21:50] LABS: Urine Appearance CLEAR (Clear); Urine Bilirubin NEGATIVE (Negative); Urine Blood NEGATIVE (Negative); Urine Color YELLOW (Yellow); Urine Glucose NEGATIVE (Negative); Urine Protein NEGATIVE (Negative); Urine Specific Gravity 1.015 (1.005-1.030); Urine Urobilinogen 0.2 mg/dL (0.2-1.0); Urine pH 5.5 (5.0-7.0)
[2020-07-18 22:38] LABS: Urine Bacteria <20 /HPF (NONE SEEN); Urine RBC NONE SEEN /HPF (NONE SEEN)
[2020-07-19] MEDS: METHYLPREDNISOLONE 40 MG INJ IV SCH ×3 (00:05→17:00)
[2020-07-19] MEDS: ALBUTEROL 2.5 MG/3 ML NEB SOL NEB SCH ×4 (01:30→20:10)
[2020-07-19] MEDS: IPRATROPIUM BROM 0.5MG/2.5ML NEB SCH ×4 (01:30→20:10)
[2020-07-19 07:20] LABS: Absolute Lymphocytes (CBC) 0.3 K/uL (0.7-4.9); Basophils % 0.2 % (0-1.3); Hematocrit 33.9 % (39.6-49.0); MPV 9.2 fL (7.6-11.3); RBC Red Blood Cell Count 4.17 M/uL (4.33-5.43)
[2020-07-19] MEDS: INSULIN -REGULAR HUMAN 50 UNIT/0.5 ML ML SQ SCH ×4 (07:30→21:04)
[2020-07-19 07:46] LABS: BUN Blood Urea Nitrogen 31 mg/dL (7-18); Bicarbonate 27 mmol/L (21-32); Glucose Level 186 mg/dL (74-106); NT PRO-BNP 2769 pg/mL (<450); Sodium Level 137 mmol/L (136-145)
[2020-07-19] MEDS ORDERED: ALBUTEROL INHALER 60 PUFF/8 GM IH PRN (07:46)
[2020-07-19] MEDS ORDERED: CARBOXYMETHYLCELLULOSE PO PRN (07:46)
[2020-07-19] MEDS ORDERED: GLYCERIN PO PRN (07:46)
[2020-07-19 07:50] LABS: Potassium 4.5 mmol/L (3.5-5.1)
[2020-07-19] MEDS: CHOLESTYRAMINE/ASP 4 GM/PKT PO SCH ×2 (08:00→17:34)
[2020-07-19 08:36] LABS: Blood Morphology Comment NOT SEEN (NOT SEEN); White Blood Cell Scan OK (OK)
[2020-07-19 08:37] LABS: Platelet Estimate ADEQ
[2020-07-19] MEDS ORDERED: APIXABAN 5 MG TABLET PO SCH (09:00)
[2020-07-19] MEDS: ROSUVASTATIN 10 MG TAB PO SCH ×3 (09:00→21:04)
[2020-07-19] MEDS ORDERED: HOME MED 1 EA UNK (Tacrolimus [Prograf] 1 MG Capsule) PO SCH (09:00)
[2020-07-19] MEDS: Fluticasone/Umeclidin/Vilanter [Trelegy Ellipta 100-62.5-25] Blst.W.Dev IH SCH (09:00)
[2020-07-19] MEDS ORDERED: CEFEPIME 1 GM/VIAL IV SCH (09:00)
[2020-07-19] MEDS: PRIMIDONE 50 MG TAB PO SCH ×3 (09:00→21:05)
[2020-07-19] MEDS ORDERED: CEFEPIME/SWI 1gm 10 ML IV SCH (09:00)
[2020-07-19] MEDS: SPIRONOLACTONE 25 MG TABLET PO SCH (09:15)
[2020-07-19] MEDS: DULOXETINE 30 MG CAP PO SCH (09:16)
[2020-07-19] MEDS: MONTELUKAST 10 MG TAB PO SCH (09:16)
[2020-07-19] MEDS: LABETALOL HCL 100 MG TAB PO SCH (09:16)
[2020-07-19] MEDS: allopurinoL 100 MG TAB PO SCH ×2 (09:16→21:06)
[2020-07-19] MEDS: DOXYCYCLINE 100 MG CAP PO SCH ×2 (09:17→21:05)
[2020-07-19] MEDS: PANTOPRAZOLE 40MG TABLET PO SCH ×2 (09:18→17:32)
[2020-07-19] MEDS: FUROSEMIDE 40 MG/4 ML VIAL IV SCH ×2 (09:18→17:32)
[2020-07-19] MEDS: DIGOXIN 0.125 MG TABLET PO SCH (09:20)
[2020-07-19] MEDS: AZITHROMYCIN IV 500 MG in NA CHLORIDE 0.9% 250 ML IVPB SCH (09:29)
--- NOTE | 2020-07-19 11:35 | EKG ---
Test Date: 2020-07-18 Test Time: 11:31:48 Mold Clamper: NEEL MEASUREMENT RESULTS: Intervals: Rate: 90 SC: QRSD: 134 QT: 366 QTc: 447 [place]: P: SC: QRS: -5 T: 3 INTERPRETIVE STATEMENTS: Atrial fibrillation Right bundle branch block Abnormal ECG Compared to ECG 01/13/2020 11:07:40 No significant changes Electronically Signed On 07-19-20 11:31:20 CDT by Dov Michel
--- NOTE | 2020-07-19 11:48 | ECHO ---
HEIGHT: 5 ft 11 in WEIGHT: 211 lb 4.8 oz DATE OF STUDY: 07/19/[address]: Arabella Navarrete 2-DIMENSIONAL: YES M.MODE: YES DOPPLER: YES COLOR FLOW: YES TDS: NO PORTABLE: NO DEFINITY: NO BUBBLE STUDY: NO DIAGNOSIS: CARDIAC HISTORY: CATHERIZATION: SURGERY: PROSTHETIC VALVE: PACEMAKER: MEASUREMENTS (cm) DIASTOLIC (NORMALS) SYSTOLIC (NORMALS) IVSd 0.9 (0.6-1.2) LA Diam (1.9-4.0) LVEF 85% LVIDd 5.5 (3.5-5.7) LVIDs 2.5 (2.0-3.5) %FS 55% LVPWd 1.1 (0.6-1.2) Ao Diam 3.7 (2.0-3.7) 2 DIMENSIONAL ASSESSMENT: RIGHT ATRIUM: NORMAL LEFT ATRIUM: NORMAL RIGHT VENTRICLE: NORMAL LEFT VENTRICLE: NORMAL TRICUSPID VALVE: NORMAL MITRAL VALVE: NORMAL PULMONIC VALVE: NORMAL AORTIC VALVE: NORMAL PERICARDIAL EFFUSION: NONE AORTIC ROOT: NORMAL LEFT VENTRICULAR WALL MOTION: DOPPLER/COLOR FLOW: MILD MITRAL STENOSIS. MITRAL VALVE AREA 1.7 CENTIMETERS SQUARED. SEVERE AORTIC STENOSIS. AORTIC VALVE AREA 0.7 CENTIMETERS SQUARED. COMMENTS: MILD MITRAL STENOSIS. MITRAL VALVE AREA 1.7 CENTIMETERS SQUARED. SEVERE AORTIC STENOSIS. AORTIC VALVE AREA 0.7 CENTIMETERS SQUARED. NORMAL LEFT VENTRICULAR EJECTION FRACTION. DECREASED LEFT VENTRICULAR COMPLIANCE. TECHNOLOGIST: Venus JACKSON
[2020-07-19] MEDS: HYDROCODONE/APAP 5/325 MG TAB PO PRN ×2 (12:45→21:05)
[2020-07-19] MEDS: guaiFENesin 100 MG/5 ML UCUP PO PRN (13:46)
[2020-07-19] MEDS ORDERED: D50W 25 GM/50 ML VIAL IV PRN (16:00)
--- NOTE | 2020-07-19 17:18 | P.PN ---
Subjective Date of Service: 07/19/20 Chief Complaint: SOB, Chest pain Subjective: Improving (feeling better today - slightly less labored breathing, more energy, denies lower leg swelling, mild chest pain) Review of Systems 10-point ROS is otherwise unremarkable Physical Examination - Vital Signs Temperature: 97.1 F Blood Pressure: 136/69 Pulse: 70 Respirations: 22 Pulse Ox (%): 98 - Studies Microbiology Data (last 24 hrs): 07/18/20 17:19 Sputum Sputum Gram Stain - Final 07/18/20 12:01 Throat Group A Streptococcus Rapid Screen - Final Assessment & Plan Physician Review Additional Text: Physical Exam General: Alert, Oriented x3, NAD HEENT: Normal conjunctiva, sclerae anicteric Respiratory: Diminished, bilateral Crackles/rales Cardiovascular: No edema, Regular rate/rhythm, Normal S1 S2, +4/6 systolic murmur loudest at RUSB Gastrointestinal: Soft, nontender, nondistended Musculoskeletal: No clubbing, No tenderness Neurological: Normal speech, normal affect Problem list Acute on chronic diastolic CHF exacerbation Acute hypoxemic respiratory failure secondary to CHF exacerbation and community- acquired pneumonia Aortic stenosis. Chronic atrial fibrillation. Chest pain Chronic COPD exacerbation, possible acute component Diabetes mellitus type 2 Hypertension History kidney transplant 2010 HLD ROSANA GERD -continue diuresis, strict I/O -echo ordered, last echo ~2 yrs ago with moderate AoS, concerned this may have progressed, pt states he was told it was ok several months ago -chest pain is atypical, trop negative, echo pending, cardiology consulted -switch IV solumedrol to PO prednisone for possible acute component of COPD -accucheks / sliding scale -continue doxy and azithro - pt with h/o MRSA pneumonia -briefly spoke with cardiology - echo with critical AoS now, recommends further eval with cardiac cath, will also need replacement - pt would like to have replacement at [facility] - has had prior procedures there Dispo: anticipate transfer vs dc home after cath on Time Spent Managing Pts Care (In Minutes): 40
[2020-07-19] MEDS ORDERED: PRIMIDONE 50 MG TAB PO SCH (21:00)
[2020-07-19] MEDS: APIXABAN 5 MG TABLET PO SCH (21:04)
[2020-07-19] MEDS: predniSONE 20 MG TAB PO SCH (21:05)
[2020-07-19] MEDS: Tacrolimus [Prograf] 1 MG Capsule PO SCH (21:05)
[2020-07-19] MEDS: TAFLUPROST OPTH SCH (21:06)
[2020-07-20] MEDS: ALBUTEROL 2.5 MG/3 ML NEB SOL NEB SCH ×4 (02:00→20:00)
[2020-07-20] MEDS: IPRATROPIUM BROM 0.5MG/2.5ML NEB SCH ×4 (02:00→20:00)
[2020-07-20 05:31] LABS: Absolute Lymphocytes (CBC) 0.4 K/uL (0.7-4.9); Basophils % 0.2 % (0-1.3); Hematocrit 33.7 % (39.6-49.0); MPV 9.3 fL (7.6-11.3); RBC Red Blood Cell Count 4.13 M/uL (4.33-5.43)
[2020-07-20 06:04] LABS: ALT/SGPT 16 U/L (12-78); AST/SGOT 17 U/L (15-37); Albumin 2.9 g/dL (3.4-5.0); Alkaline Phosphatase 57 U/L (45-117); BUN Blood Urea Nitrogen 35 mg/dL (7-18); Bicarbonate 27 mmol/L (21-32); Bilirubin Total 0.4 mg/dL (0.2-1.0); Glucose Level 185 mg/dL (74-106); Potassium 4.3 mmol/L (3.5-5.1); Protein, Total 6.9 g/dL (6.4-8.2); Sodium Level 135 mmol/L (136-145)
[2020-07-20 07:03] LABS: Blood Morphology Comment NOT SEEN (NOT SEEN); Platelet Estimate ADEQ; White Blood Cell Scan OK (OK)
[2020-07-20] MEDS: INSULIN -REGULAR HUMAN 50 UNIT/0.5 ML ML SQ SCH ×4 (07:30→20:57)
[2020-07-20] MEDS: CHOLESTYRAMINE/ASP 4 GM/PKT PO SCH ×2 (08:00→19:34)
[2020-07-20] MEDS: AZITHROMYCIN IV 500 MG in NA CHLORIDE 0.9% 250 ML IVPB SCH (09:00)
[2020-07-20] MEDS: DULOXETINE 30 MG CAP PO SCH (09:20)
[2020-07-20] MEDS: PANTOPRAZOLE 40MG TABLET PO SCH ×2 (09:21→16:30)
[2020-07-20] MEDS: FUROSEMIDE 40 MG/4 ML VIAL IV SCH ×2 (09:21→19:33)
[2020-07-20] MEDS: Fluticasone/Umeclidin/Vilanter [Trelegy Ellipta 100-62.5-25] Blst.W.Dev IH SCH (09:21)
[2020-07-20] MEDS: DIGOXIN 0.125 MG TABLET PO SCH (09:21)
[2020-07-20] MEDS: predniSONE 20 MG TAB PO SCH ×2 (09:21→20:57)
[2020-07-20] MEDS: allopurinoL 100 MG TAB PO SCH ×2 (09:21→20:57)
[2020-07-20] MEDS: DOXYCYCLINE 100 MG CAP PO SCH ×2 (09:21→20:57)
[2020-07-20] MEDS: PRIMIDONE 50 MG TAB PO SCH ×3 (09:22→21:00)
[2020-07-20] MEDS: APIXABAN 5 MG TABLET PO SCH ×2 (09:22→21:00)
[2020-07-20] MEDS: Tacrolimus [Prograf] 1 MG Capsule PO SCH ×2 (09:22→20:59)
[2020-07-20] MEDS: SPIRONOLACTONE 25 MG TABLET PO SCH (11:53)
[2020-07-20] MEDS: MONTELUKAST 10 MG TAB PO SCH (11:53)
[2020-07-20] MEDS: LABETALOL HCL 100 MG TAB PO SCH (11:53)
[2020-07-20] MEDS: guaiFENesin 100 MG/5 ML UCUP PO PRN (11:54)
[2020-07-20] MEDS ORDERED: GLYCERIN OPTH PRN (12:00)
[2020-07-20] MEDS ORDERED: CARBOXYMETHYLCELLULOSE OPTH PRN (12:00)
--- NOTE | 2020-07-20 16:27 | P.PN ---
Subjective Date of Service: 07/20/20 Chief Complaint: SOB, Chest pain Subjective: Improving (breathing better, feeling better, energy/strength returning. denies chest pain. awaiting heart cath tomorrow) Review of Systems 10-point ROS is otherwise unremarkable Physical Examination - Vital Signs Temperature: 97.5 F Blood Pressure: 163/95 Pulse: 94 Respirations: 20 Pulse Ox (%): 100 - Studies Microbiology Data (last 24 hrs): 07/18/20 17:19 Sputum Sputum Gram Stain - Final 07/18/20 17:19 Sputum Culture & Sensitivity - Final 07/18/20 12:01 Throat Culture & Sensitivity - Final NORMAL UPPER RESPIRATORY APRIL GROWN. Assessment & Plan Physician Review Additional Text: Physical Exam General: Alert, Oriented x3, NAD HEENT: Normal conjunctiva, sclerae anicteric Respiratory: Diminished, bilateral Crackles/rales at bases Cardiovascular: No edema, Regular rate/rhythm, Normal S1 S2, +4/6 systolic murmur loudest at RUSB Gastrointestinal: Soft, nontender, nondistended Musculoskeletal: No clubbing, No tenderness Neurological: Normal speech, normal affect Problem list Acute on chronic diastolic CHF exacerbation Acute hypoxemic respiratory failure secondary to CHF exacerbation and community- acquired pneumonia Aortic stenosis. Chronic atrial fibrillation. Chest pain Chronic COPD exacerbation, possible acute component Diabetes mellitus type 2 Hypertension History kidney transplant 2010 HLD ROSANA GERD -continue diuresis, strict I/O -chest pain is atypical, trop negative, cardio consulted -echo with severe aortic stenosis - likely contributing to CHF exacerbation -continue po prednisone -accucheks / sliding scale -continue doxy and azithro - pt with h/o MRSA pneumonia -briefly spoke with cardiology - echo with critical AoS now, recommends further eval with cardiac cath tomorrow -pt would like to have any further interventions/replacement at [facility] - has had prior procedures there Dispo: cath tomorrow, pending results, possible transfer vs home Time Spent Managing Pts Care (In Minutes): 35
[2020-07-20] MEDS: ROSUVASTATIN 10 MG TAB PO SCH (20:57)
[2020-07-20] MEDS: TAFLUPROST OPTH SCH (21:00)
[2020-07-21] MEDS: IPRATROPIUM BROM 0.5MG/2.5ML NEB SCH ×3 (02:00→13:55)
[2020-07-21] MEDS: ALBUTEROL 2.5 MG/3 ML NEB SOL NEB SCH ×3 (02:00→13:55)
[2020-07-21 05:48] LABS: Absolute Lymphocytes (CBC) 0.4 K/uL (0.7-4.9); Basophils % 0.1 % (0-1.3); Hematocrit 33.9 % (39.6-49.0); Lymphocytes % 4.9 % (15.3-44.8); MPV 8.8 fL (7.6-11.3); RBC Red Blood Cell Count 4.18 M/uL (4.33-5.43)
[2020-07-21 06:04] LABS: ALT/SGPT 24 U/L (12-78); AST/SGOT 15 U/L (15-37); Albumin 2.9 g/dL (3.4-5.0); Alkaline Phosphatase 52 U/L (45-117); BUN Blood Urea Nitrogen 32 mg/dL (7-18); Bicarbonate 31 mmol/L (21-32); Bilirubin Total 0.5 mg/dL (0.2-1.0); Glucose Level 181 mg/dL (74-106); Potassium 4.3 mmol/L (3.5-5.1); Protein, Total 6.7 g/dL (6.4-8.2); Sodium Level 137 mmol/L (136-145)
[2020-07-21] MEDS: INSULIN -REGULAR HUMAN 50 UNIT/0.5 ML ML SQ SCH ×2 (07:30→11:30)
[2020-07-21] MEDS: LABETALOL HCL 100 MG TAB PO SCH (07:41)
[2020-07-21] MEDS: Tacrolimus [Prograf] 1 MG Capsule PO SCH (07:48)
[2020-07-21] MEDS: CHOLESTYRAMINE/ASP 4 GM/PKT PO SCH (08:00)
[2020-07-21] MEDS ORDERED: NA CHLORIDE 0.9% 500 ML ONE (08:24)
[2020-07-21] MEDS ORDERED: HEPA 1000U/500MLS 1,000 UNIT/500 ML BAG IV ONE (08:41)
[2020-07-21] MEDS ORDERED: MIDAZOLAM HCL 2 MG/2 ML INJ ONE (08:42)
[2020-07-21] MEDS ORDERED: FENTANYL CITR 100 MCG/2 ML ONE (08:42)
[2020-07-21] MEDS ORDERED: ATROPINE SULF 1 MG/10 ML SYR IV ONE (08:42)
[2020-07-21] MEDS: AZITHROMYCIN IV 500 MG in NA CHLORIDE 0.9% 250 ML IVPB SCH (09:00)
[2020-07-21] MEDS: PRIMIDONE 50 MG TAB PO SCH ×2 (09:00→12:33)
[2020-07-21] MEDS ORDERED: NA CHLORIDE 0.9% 100 ML IV ONE (09:05)
--- NOTE | 2020-07-21 09:08 | RAD REPORT ---
EXAM DESCRIPTION: RAD - Chest Single View - 07/21/2020 4:17 am CLINICAL HISTORY: hypoxia, pneumonia Chest pain. COMPARISON: Chest Single View dated 07/18/2020; Chest Single View dated 01/25/2020; Chest Single View dated 01/22/2020; Chest Single View dated 01/19/2020; Thorax Wo Con dated 07/18/2020 FINDINGS: Portable technique limits examination quality. Mild bilateral interstitial prominence is seen with airspace opacity in the left lung base, unchanged . The heart is moderately enlarged in size. No displaced fractures.
[2020-07-21 10:47] VITALS: BP 147/85
[2020-07-21 12:16] VITALS: TEMP 97.5
[2020-07-21] MEDS: Fluticasone/Umeclidin/Vilanter [Trelegy Ellipta 100-62.5-25] Blst.W.Dev IH SCH (12:26)
[2020-07-21] MEDS: SPIRONOLACTONE 25 MG TABLET PO SCH (12:29)
[2020-07-21] MEDS: predniSONE 20 MG TAB PO SCH (12:29)
[2020-07-21] MEDS: MONTELUKAST 10 MG TAB PO SCH (12:29)
[2020-07-21] MEDS: DOXYCYCLINE 100 MG CAP PO SCH (12:29)
[2020-07-21] MEDS: DIGOXIN 0.125 MG TABLET PO SCH (12:30)
[2020-07-21] MEDS: allopurinoL 100 MG TAB PO SCH (12:31)
[2020-07-21] MEDS: PANTOPRAZOLE 40MG TABLET PO SCH (12:31)
[2020-07-21] MEDS: DULOXETINE 30 MG CAP PO SCH (12:31)
[2020-07-21] MEDS: FUROSEMIDE 40 MG/4 ML VIAL IV SCH (12:32)
[2020-07-21] MEDS: APIXABAN 5 MG TABLET PO SCH (12:33)
[2020-07-21 14:25] VITALS: O2SAT 100
--- NOTE | 2020-07-21 14:56 | OP ---
Surgeon: Dov Michel MD Indication: Admitted to Dr. Vinson on 07/18/2020 for congestive heart failure, was found to have cri tical aortic stenosis, elevated troponin. Brought to the grinding and polishing laborer today on 07/21/2020, underwent a l eft heart catheterization, right heart catheterization, selective coronary arteriogram, cardiac outpu t measurement, and oxygen saturation measurements. Procedure In Detail: In the grinding and polishing laborer, he was prepped and draped in routine sterile fashion. A 6-Karl [facility] sheath introduced in the right common femoral artery. A 7-Martiniquais sheath introduced in the right common femoral vein using the Seldinger technique and 10 mL of Xylocaine. A [place] catheter was i ntroduced in the common femoral vein through the right atrium, right ventricle, and pulmonary artery. Cardiac output was measured at 5.8 L per minute. Oxygen saturation still pending. He had normal r ight heart pressures. Left catheterization was done using the Joceline catheter left and right to can nulate the left main and right main respectively. He had a 30% to 40% mid RCA stenosis, a very right dominant vessel, diffuse plaquing. The circumflex had diffuse plaquing. Left main was normal. The re was a 70% to 80% mid LAD stenosis. The patient tolerated the procedure well. There were no compl ications. Blood loss was 5 mL. Anesthesia: Total conscious sedation was 60 minutes Angio-Seal was used to close the case in the right groin after angiography found it normal. The rk ent will be in the hospital for at least overnight and then we will make decisions further regarding his care. Impression: 1.Coronary artery disease, need an LAD stent. 2.Critical aortic stenosis, need a TAVR. We will make arrangement for him to have both of these procedure done as an outpatient. I will discuss the case further with Dr. Ty and his family. NB/MODL Voice ID: [id number] Report ID: [id number]
--- NOTE | 2020-07-21 17:53 | P.DS ---
Admission Date: 07/18/20 Discharge Date: 07/21/20 Disposition: ROUTINE DISCHARGE Discharge Condition: GOOD Reason for Admission: SOB, Chest pain Consultations: Cardiology - Dr. Michel Procedures: CXR (07/18): Mild to moderate pulmonary edema suspected. The heart is significantly enlarged in size. No displaced fractures. CT Chest (07/18): There is a moderate sized area of lung consolidation in the medial left lower lobe with small amount of pleural effusion. This likely represents a left lower lobe pneumonia. Trace right pleural fluid is also seen. No pneumothorax. CXR (07/21): Mild bilateral interstitial prominence is seen with airspace opacity in the left lung base, unchanged. The heart is moderately enlarged in size. No displaced fractures. TTE (07/19): Mild mitral stenosis, mitral valve area: 1.7 cm squared. Severe aortic stenosis, aortic valve area: 0.7 cm squared. Normal LV EF, decreased LV compliance Cardiac Catheterization (07/21): by Dr. Michel 30% to 40% mid RCA stenosis, a very right dominant vessel, diffuse plaquing. The circumflex had diffuse plaquing. Left main was normal. There was a 70% to 80% mid LAD stenosis. The patient tolerated the procedure well. There were no complications. 1. Coronary artery disease, needs an LAD stent. 2. Critical aortic stenosis, needs a TAVR. Problem list Acute hypoxemic respiratory failure secondary to CHF exacerbation and community- acquired pneumonia Acute on chronic diastolic CHF exacerbation Severe Aortic stenosis. Moderate-Severe coronary artery stenosis Chronic atrial fibrillation. Chest pain Chronic COPD exacerbation, possible acute component Diabetes mellitus type 2 Hypertension History kidney transplant 2010 HLD ROSANA GERD Brief History of Present Illness: 75-year-old male with a past medical history significant for CHF, hypertension, COPD, DM 2, HLD, ROSANA, kidney transplant-2010 who presents with complaint of shortness of breath and chest pain that has been ongoing for the past 3 days. Patient reports that he is on O2 therapy at 2 liters/minute and uses a CPAP at night. Patient indicated that chest pain is located in the left chest wall. Patient rated pain as a 6\10 in severity and described pain as throbbing in quality. Patient reports associated signs and symptoms of cough and congestion. Patient also reported that he had diarrhea 3 days ago but diarrhea has resolved. Patient denies any other signs or symptoms. Symptoms are aggravated by exertion and relieved by nothing. Patient decided to present to the hospital due to worsening symptoms. Hospital Course: Patient was treated with IV diuresis, antibiotics, and steroids. He had fairly quick turnaround of the symptoms, breathing comfortably on O2, and ambulated around nurse station without issue. He underwent echocardiogram which revealed severe aortic stenosis. Cardiology was consulted and patient was taken for card iac catheterization. He was found to have stenosis of his LAD in. Cardiology recommended LAD stent and TAVR. Patient is set up for appointment with Dr. Ty this coming . Discharged with antibiotics and steroids. Follow up with PCP in 3-5 days Vital Signs/Physical Exam: Physical Exam General: Alert, Oriented x3, NAD HEENT: Normal conjunctiva, sclerae anicteric Respiratory: Diminished, bilateral Crackles/rales at bases (L>R) Cardiovascular: No edema, Regular rate/rhythm, Normal S1 S2, +4/6 systolic murmur loudest at RUSB Gastrointestinal: Soft, nontender, nondistended Musculoskeletal: No clubbing, No tenderness Neurological: Normal speech, normal affect Temp Pulse Resp BP Pulse Ox 97.5 F 55 18 147/85 H 99 07/21/20 12:00 07/21/20 12:32 07/21/20 12:00 07/21/20 12:32 07/21/20 12:00 Laboratory Data at Discharge: WBC 7.50 K/uL (4.3-10.9) D 07/21/20 05:08 Hgb 10.8 g/dL (13.6-17.9) L 07/21/20 05:08 Hct 33.9 % (39.6-49.0) L 07/21/20 05:08 Plt Count 184 K/uL (152-406) 07/21/20 05:08 PT 16.4 SECONDS (9.5-12.5) H 07/18/20 12:20 INR 1.42 07/18/20 12:20 Sodium 137 mmol/L (136-145) 07/21/20 05:08 Potassium 4.3 mmol/L (3.5-5.1) 07/21/20 05:08 BUN 32 mg/dL (7-18) H 07/21/20 05:08 Creatinine 0.63 mg/dL (0.55-1.3) 07/21/20 05:08 Glucose 181 mg/dL (74-106) H 07/21/20 05:08 Magnesium 1.9 mg/dL (1.8-2.4) 07/18/20 12:20 Total Bilirubin 0.5 mg/dL (0.2-1.0) 07/21/20 05:08 AST 15 U/L (15-37) 07/21/20 05:08 ALT 24 U/L (12-78) 07/21/20 05:08 Alkaline Phosphatase 52 U/L (45-117) 07/21/20 05:08 Troponin I < 0.02 ng/mL (0.0-0.045) 07/18/20 20:57 Home Medications: Albuterol Inhaler [Ventolin Inhaler*] 2 puff IH Q4HP PRN 07/19/20 Allopurinol 100 mg PO BID 07/19/20 Apixaban [Eliquis] 5 mg PO BID 07/19/20 Carboxymethylcellulos/Glycerin [Refresh Optive Eye Drops] 1 - 2 drop EACH EYE Q2HP PRN 07/19/20 Cholestyramine [Cholestyramine Resin] 2 packet PO BEDTIME 07/19/20 Cyclosporine [Restasis] 1 - 2 drop EACH EYE BID 07/19/20 Diclofenac Sodium [Voltaren] 1 g TOP TIDP PRN 07/19/20 Digoxin [Lanoxin*] 0.125 mg PO DAILY 07/19/20 Duloxetine HCl [Cymbalta] 30 mg PO DAILY 07/19/20 Fluticasone/Umeclidin/Vilanter [Trelegy Ellipta 100-62.5-25] 1 unit IH DAILY 07/19/20 Furosemide [Lasix*] 40 mg PO BIDWM 07/19/20 Hydrocodone Bit/Acetaminophen [[place] 7.5-325 Tablet] 1 tab PO TIDP PRN 07/19/20 Insulin Aspart Prot/Insuln Asp [Novolog Mix 70-30 Flexpen] 15 unit SQ BIDWM 07/19/20 Ipratropium [place] 2 spray JYOTI QID 07/19/20 Labetalol HCl [Trandate] 200 mg PO DAILY 07/19/20 Mineral Oil, Light/Mineral Oil [Soothe Xp Eye Drops] 1 drop EACH EYE BEDTIME 07/19/20 Montelukast [Singulair*] 10 mg PO DAILY 07/19/20 Pantoprazole Sodium [Protonix] 40 mg PO BID 07/19/20 Potassium Oral Tab [Klor-Con 10 mEq Tab*] 10 meq PO DAILY 07/19/20 Primidone 50 mg PO TID 07/19/20 Rosuvastatin [Crestor*] 10 mg PO DAILY 07/19/20 Spironolactone 50 mg PO DAILY 07/19/20 Tacrolimus [Prograf] 1 mg PO BID 07/19/20 Tafluprost/Pf [Zioptan 0.0015% Eye Drops] 1 drop EACH EYE BEDTIME 07/19/20 mycophenolate mofetiL [Mycophenolate Mofetil] 1,000 mg PO BID 07/19/20 predniSONE [Prednisone*] 5 mg PO DAILY 07/19/20 Doxycycline Hyclate 100 mg PO BID 7 Days #14 tablet 07/21/20 predniSONE [Prednisone*] 20 mg PO BID 3 Days #6 tab 07/21/20 New Medications: Doxycycline Hyclate 100 mg PO BID 7 Days #14 tablet predniSONE [Prednisone*] 20 mg PO BID 3 Days #6 tab Physician Discharge Instructions: You were found to have a pneumonia and acute congestive heart failure exacerbation. You improved with antibiotics, steroids, and IV furosemide. You were also found to have severe aortic stenosis and blockage of your coronary artery. Cardiology recommended a coronary artery stent and aortic valve replacement. You have an appointment on with Dr. Ty to further discuss/plan. Resume home medications as previously prescribed. Follow up with PCP in 3-5 days. Diet: ADA Activity: Ad santos Followup: NONE,NONE [Primary Care Provider] - Acosta Ty MD [ACTIVE - CAN ADMIT] - (Follow up on as scheduled.) Time spent managing pt's care (in minutes): 45
--- NOTE | 2020-07-24 18:41 | CON ---
Date of Consultation: 07/19/2020 Reason For Consultation: Congestive heart failure. History Of Present Illness: Mr. Lewis is 75-year-old white male, who sees . normally f or multiple medical problems. He has a history of congestive heart failure, aortic stenosis, gastroe sophageal reflux disease, paroxysmal atrial fibrillation, hypertension, gout, COPD, diabetes, sleep a pnea, history of kidney transplant. Came in with dyspnea on exertion and substernal chest pressure t hat has going on for 2 days. Complained of edema, PND, orthopnea. No palpitation. No syncope. Den ied fever or chills. Denied any unexplained nausea, vomiting, or diaphoresis. Allergies: HE IS ALLERGIC TO DEMEROL, PENICILLIN AND WARFARIN. Medications: At home prednisone, cholestyramine, spironolactone, Lasix, Eliquis, digoxin, labetalol, allopurinol, Crestor, Singulair, inhalers, and insulin. Past Medical History: As stated above. Review of Systems: Negative. Social History: Negative. Family History: Noncontributory. Physical Examination: Vital Signs: Stable. He was in atrial fibrillation, rate of 70. He was afebrile. HEENT: Negative. Neck: Supple without any bruit, lymphadenopathy, JVD, or thyromegaly. Chest: Reveals rales at both bases. Cardiac: Revealed aortic stenosis murmur and atrial fibrillation. Abdomen: Benign. Extremities: Revealed 1+ edema. Skin: Intact. Pulses were present distally bilaterally. Neurologic: Nonfocal. Diagnostic Data: Showed atrial fibrillation. Normal creatinine, , glucose of 204. DICTATION ENDS HERE. RADHA/MODL Voice ID: [id number] Report ID: [id number]
== END 2020-07-21 15:30 | disposition home or self-care (01) | DRG 286 ==
LOC: ER 11:18 → ERHOLD 17:35 → 4TH 19:46
PROVIDERS: ADMIT Internal Medicine; ATTEND Hospitalist
PROC: 5A09457 Assistance with Respiratory Ventilation, 24-96 Consecutive Hours, Continuous Positive Airway Pressure (ICD-10-PCS; 2020-07-18)
PROC: 4A023N8 Measurement of Cardiac Sampling and Pressure, Bilateral, Percutaneous Approach (ICD-10-PCS; principal; 2020-07-21)
PROC: B2111ZZ Fluoroscopy of Multiple Coronary Arteries using Low Osmolar Contrast (ICD-10-PCS; 2020-07-21)
DX: I11.0 Hypertensive heart disease with heart failure (principal); J18.9 Pneumonia, unspecified organism; J96.21 Acute and chronic respiratory failure with hypoxia; Z94.0 Kidney transplant status; J44.0 Chronic obstructive pulmonary disease with (acute) lower respiratory infection; J44.1 Chronic obstructive pulmonary disease with (acute) exacerbation; I48.20 Chronic atrial fibrillation, unspecified; I50.33 Acute on chronic diastolic (congestive) heart failure; I25.10 Atherosclerotic heart disease of native coronary artery without angina pectoris; K21.9 Gastro-esophageal reflux disease without esophagitis; E78.5 Hyperlipidemia, unspecified; G47.33 Obstructive sleep apnea (adult) (pediatric); I35.0 Nonrheumatic aortic (valve) stenosis; D72.829 Elevated white blood cell count, unspecified; E11.9 Type 2 diabetes mellitus without complications; R07.89 Other chest pain; Z88.0 Allergy status to penicillin; Z88.5 Allergy status to narcotic agent; Z88.8 Allergy status to other drugs, medicaments and biological substances; Z79.52 Long term (current) use of systemic steroids; Z79.01 Long term (current) use of anticoagulants; Z79.899 Other long term (current) drug therapy; Z99.89 Dependence on other enabling machines and devices; Z79.4 Long term (current) use of insulin; Z96.651 Presence of right artificial knee joint; Z96.641 Presence of right artificial hip joint; Z90.49 Acquired absence of other specified parts of digestive tract; Z20.822 Contact with and (suspected) exposure to COVID-19
CPT/HCPCS: 0240U; 36415; 71045; 71250; 80048; 80053; 80076; 81001; 82947; 83735; 83880; 84145; 84484; 85025; 85610; 86140; 87040; 87070; 87081; 87205; 93005; 93306; 93456; 96374; 97161; 99285; C1760; C1893; J0456; J1644; J1940; J2250; J2920; J3010; J7040; J7050; J7512

== ENCOUNTER 2020-10-29 17:39 | Inpatient (IN) | payer OTHER ==
--- NOTE | 2020-10-29 19:06 | RAD REPORT ---
EXAM DESCRIPTION: CT - Stone Protocol - 10/29/2020 6:49 pm CLINICAL HISTORY: Abdominal pain. Left flank pain COMPARISON: 2019 TECHNIQUE: Computed axial tomography of the abdomen pelvis was obtained without oral or IV contrast. Lack of IV and oral contrast limits evaluation of solid organs, bowel, and vessels. Coronal reformat romain images were obtained and reviewed. All CT scans are performed using dose optimization technique as appropriate and may include automated exposure control or mA/KV adjustment according to patient size. FINDINGS: Lingular consolidation. Mild bilateral lower lobe opacities. Small pleural effusions Small [place] kidneys. Vascular calcifications. No hydronephrosis. Small renal cysts. Transplant kidne y right upper pelvis. The liver, spleen, pancreas and adrenals appear grossly normal There is no evidence of diverticulitis. Right hip arthroplasty. Small lipoma anterior compartment rig ht thigh. Vascular calcifications small ventral hernias contain fat. Cholecystectomy IMPRESSION: Lingular pneumonia. Mild bilateral lower lobe pneumonia
--- NOTE | 2020-10-29 19:08 | RAD REPORT ---
EXAM DESCRIPTION: Janell Single View10/29/2020 6:51 pm CLINICAL HISTORY: cough COMPARISON: June 2020 FINDINGS: Moderate to marked left and mild right pulmonary opacities The heart is enlarged The heart is normal size IMPRESSION: Moderate to marked left and mild right pulmonary opacities probably pneumonia
[2020-10-29] MEDS ORDERED: MORPHINE 2 MG/ML SYR ONE (19:13)
[2020-10-29] MEDS ORDERED: ONDANSETRON 4 MG/2 ML VIAL ONE (19:13)
[2020-10-29 20:14] LABS: Absolute Lymphocytes (CBC) 0.4 K/uL (0.7-4.9); Basophils % 0.2 % (0-1.3); Hematocrit 30.5 % (39.6-49.0); MPV 8.9 fL (7.6-11.3); RBC Red Blood Cell Count 3.84 M/uL (4.33-5.43)
[2020-10-29] MEDS ORDERED: NA CHLORIDE 0.9% 500 ML ONE ×2 (20:36→23:13)
[2020-10-29] MEDS ORDERED: Meropenem 1 GM/100 ML BAG ONE (20:37)
[2020-10-29 20:41] LABS: ALT/SGPT 12 U/L (12-78); AST/SGOT 7 U/L (15-37); Albumin 3.2 g/dL (3.4-5.0); Alkaline Phosphatase 60 U/L (45-117); BUN Blood Urea Nitrogen 20 mg/dL (7-18); Bicarbonate 29 mmol/L (21-32); Bilirubin Direct 0.2 mg/dL (0-0.2); Bilirubin Total 0.7 mg/dL (0.2-1.0); Glucose Level 177 mg/dL (74-106); Lipase 33 U/L (73-393); Protein, Total 6.7 g/dL (6.4-8.2); Sodium Level 140 mmol/L (136-145)
[2020-10-29 20:48] LABS: C-Reactive Protein > 190.00 mg/L (<3.00); Ferritin 59.3 ng/mL (26-388)
[2020-10-29 21:12] LABS: Blood Morphology Comment NOTED (NOT SEEN); Platelet Estimate ADEQ; Platelets, Giant NOTED
[2020-10-29 21:13] LABS: Anisocytosis 1+; Polychromasia SLIGHT
--- NOTE | 2020-10-29 21:15 | EDPHYS ---
Physician Documentation [facility] Name: Yunior Lewis Age: 75 yrs Sex: Male : 1945 Arrival Date: 10/29/2020 Time: 17:55 Bed 14 Private MD: ED Physician Cooper Loving HPI: 10/29 18:35 This 75 yrs old Male presents to ER via EMS with complaints of Shortness Of cp Breath, Flank Pain. 18:35 The patient complains of pain in the left flank. Onset: The symptoms/episode cp began/occurred 2 day(s) ago. 18:35 Associated signs and symptoms: Pertinent positives: non-productive cough, Pertinent cp negatives: chest pain, diaphoresis, fever, vomiting. Historical: - Allergies: 18:01 Demerol; iw 18:01 NSAIDS; iw 18:01 PENICILLINS; iw 18:01 Warfarin; iw - Home Meds: 18:01 allopurinol 100 mg Oral tab 1 tab 2 times per day [Active]; cholestyramine (bulk) iw miscellaneous powd daily [Active]; digoxin 125 mcg Oral tab 1 tab once daily [Active]; duloxetine 30 mg Oral cpDR 1 cap once daily [Active]; Eliquis 5 mg Oral tab 1 tab 2 times per day [Active]; furosemide 40 mg Oral tab 1 tab 2 times per day [Active]; hydrocodone-acetaminophen 7.5-325 mg Oral tab 1 tab every 4 hours [Active]; ipratropium bromide 0.02 % inhalation soln [Active]; Klor-Con 10 10 mEq Oral TbER 1 tab once daily [Active]; labetalol 200 mg Oral tab 1 tab 2 times per day [Active]; montelukast 10 mg Oral tab 1 tab once daily [Active]; mycophenolate mofetil 500 mg Oral tab 2 tabs 2 times per day [Active]; Novolin 70/30 Innolet Sub-Q 70-30 unit/mL [Active]; pantoprazole 40 mg Oral TbEC 1 tab once daily [Active]; prednisone 5 mg Oral tab 1 tab once daily [Active]; primidone 50 mg Oral tab 1 tabs 3 times per day [Active]; Restasis 0.05 % ophthalmic dpet 1 drop 2 times per day [Active]; rosuvastatin 10 mg Oral tab 1 tab once daily [Active]; spironolactone 50 mg Oral tab 1 tab once daily [Active]; tacrolimus 1 mg Oral cap every 12 hours [Active]; TRELEGY Ellipta 100mcg fluticasone furate, 62.5mcg umeclidinium \T\ 25mcg 1 puff daily [Active]; Ventolin Rotahaler/Rotacaps 90 mcg Inhl [Active]; Zioptan (PF) 0.0015 % ophthalmic dpet 1 drop once daily [Active]; - PMHx: 18:01 CHF; COPD; Diabetes - IDDM; gastritis; Heart Murmur; Hyperlipidemia; Hypertension; iw Sleep Apnea; - Immunization history:: Adult Immunizations up to date, Client reports receiving the 2nd dose of the Covid vaccine. - Social history:: Smoking status: Patient/guardian denies using tobacco. ROS: 18:40 Constitutional: Negative for body aches, fever, poor PO intake. cp 18:40 Eyes: Negative for injury, pain, redness, and discharge. cp 18:40 ENT: Negative for ear pain, sore throat, difficulty swallowing, difficulty handling secretions. 18:40 Cardiovascular: Negative for chest pain, edema, palpitations. 18:40 Respiratory: Positive for cough, with no reported sputum, shortness of breath, on exertion. Negative for wheezing. 18:40 Abdomen/GI: Positive for abdominal distension, Negative for vomiting, diarrhea, constipation, black/tarry stool, rectal bleeding. 18:40 Back: Positive for flank pain, on the left. 18:40 : Negative for burning with urination, testicular pain 18:40 Skin: Negative for rash. 18:40 Neuro: Positive for weakness, Negative for altered mental status, headache, syncope. 18:40 All other systems are negative. Exam: 18:45 Head/Face: Normocephalic, atraumatic. cp 18:45 Constitutional: The patient appears in no acute distress, alert, awake, non-diaphoretic, non-toxic, well developed, well nourished, uncomfortable. 18:45 Eyes: Periorbital structures: appear normal, Pupils: equal, round, and reactive to cp light and accomodation, Extraocular movements: intact throughout, Conjunctiva: normal, no exudate, no injection, Sclera: no appreciated abnormality, Lids and lashes: appear normal, bilaterally. 18:45 ENT: External ear(s): are unremarkable, Nose: is normal, Mouth: Lips: dry, Oral mucosa: moist, Posterior pharynx: Airway: no evidence of obstruction, patent. 18:45 Neck: ROM/movement: is normal, is supple, without pain, no range of motions limitations, no meningismus, no nuchal rigidity. 18:45 Chest/axilla: Inspection: normal, Palpation: crepitus, is not appreciated, tenderness, is not appreciated. 18:45 Cardiovascular: Rate: normal, Rhythm: regular, Edema: is not appreciated, JVD: is not appreciated. 18:45 Respiratory: the patient does not display signs of respiratory distress, Respirations: labored breathing, is not present, shallow respirations, that is mild, Breath sounds: rhonchi, that are mild, are heard in the left posterior lower lobe, stridor, is not appreciated, wheezing: is not appreciated. 18:45 Abdomen/GI: Inspection: abdomen appears normal, Bowel sounds: active, all quadrants, Palpation: soft, in all quadrants, moderate abdominal tenderness, in the anterior aspect of left lateral abdomen and posterior aspect of left lateral abdomen, rebound tenderness, is not appreciated, involuntary guarding, is not appreciated. 18:45 Back: CVA tenderness, is absent. 18:45 Skin: cellulitis, is not appreciated, no rash present. 18:45 Neuro: Orientation: to person, place \T\ time. Mentation: is normal. Vital Signs: 18:20 BP 117 / 78; Pulse 85; Resp 22; Temp 100.3; Pulse Ox 98% 3 lpm ; Weight 99.34 kg; ch5 Height 5 ft. 11 in. (180.34 cm); Pain 3/10; 20:44 BP 132 / 55; Pulse 83; Resp 18; Temp 99.3; Pulse Ox 99% on 4 lpm NC; Pain 0/10; wr 18:20 Body Mass Index 30.54 (99.34 kg, 180.34 cm) ch5 MDM: 18:12 Patient medically screened. marbella 19:30 Differential diagnosis: nephrolithiasis, pyelonephritis, UTI, pancreatitis, ruptured cp AAA, dissecting AAA, sepsis pneumonia, pulmonary edema, Pulmonary Embolism. 21:15 Data reviewed: vital signs, nurses notes, lab test result(s), radiologic studies, plain cp films, and as a result, I will admit patient. 21:15 Test interpretation: by ED physician or midlevel provider: plain radiologic studies. cp Physician consultation: Josesito Natarajan was contacted at 21:10, regarding admission, to the medical/surgical unit. patient's condition. 10/29 18:24 Order name: Basic Metabolic Panel; Complete Time: 20:48 cp 10/29 20:48 Interpretation: Normal except: GLUC 177; BUN 20. cp 10/29 18:24 Order name: CBC with Diff; Complete Time: 21:14 cp 10/29 20:50 Interpretation: Reviewed. cp 10/29 18:24 Order name: Hepatic Function; Complete Time: 20:48 cp 10/29 20:48 Interpretation: Normal except: AST 7; ALB 3.2; A/G 0.9. cp 10/29 18:24 Order name: Lipase; Complete Time: 20:48 cp 10/29 20:49 Interpretation: LIP 33; Reviewed. 10/29 18:24 Order name: Urine Microscopic Only; Complete Time: 00:55 cp 10/29 19:19 Order name: Procalcitonin; Complete Time: 20:40 cp 10/29 20:40 Interpretation: Abnormal: Procalcitonin 0.09. cp 10/29 19:19 Order name: Lactate; Complete Time: 21:57 cp 10/29 21:58 Interpretation: Within normal limits: LAC 1.4. cp 10/29 19:19 Order name: Blood Culture Adult (2) cp 10/29 19:19 Order name: CRP; Complete Time: 20:56 cp 10/30 00:56 Interpretation: Abnormal: C-REACTIVE PROT > 190.00. cp 10/29 19:19 Order name: Ferritin; Complete Time: 20:56 cp 10/29 20:25 Order name: Manual Differential; Complete Time: 21:14 EDMS 10/29 21:12 Order name: SARS-COV-2 RT PCR; Complete Time: 21:14 EDMS 10/30 00:56 Interpretation: Results reviewed. cp 10/29 21:17 Order name: Troponin (emerg Dept Use Only); Complete Time: 00:55 la1 10/29 18:24 Order name: XRAY Chest (1 view); Complete Time: 19:14 cp 10/29 21:17 Order name: BNP; Complete Time: 00:55 la1 10/30 00:55 Interpretation: Abnormal: NT PRO-BNP 2520. cp 10/29 21:17 Order name: PT-INR; Complete Time: 00:55 la1 10/29 21:17 Order name: Ptt, Activated; Complete Time: 00:55 la1 10/29 22:35 Order name: Urine Dipstick-Ancillary; Complete Time: 00:55 EDMS 10/29 22:48 Order name: Glucose, Ancillary Testing; Complete Time: 00:55 EDMS 10/30 03:48 Order name: CBC with Automated Diff EDMS 10/30 04:15 Order name: Comprehensive Metabolic Panel EDMS 10/30 04:15 Order name: Lipid Profile EDMS 10/30 04:15 Order name: T4 Free EDMS 10/30 04:15 Order name: Magnesium EDMS 10/30 04:15 Order name: Thyroid Stimulating Hormone EDMS 10/30 07:04 Order name: C-Reactive Protein EDMS 10/30 07:54 Order name: Glucose, Ancillary Testing EDMS 10/30 15:43 Order name: Glucose, Ancillary Testing EDMS 10/30 16:46 Order name: Glucose, Ancillary Testing EDMS 10/29 18:24 Order name: IV Saline Lock; Complete Time: 19:58 cp 10/29 18:24 Order name: Labs collected and sent; Complete Time: 19:58 cp 10/29 18:24 Order name: Urine Dipstick-Ancillary (obtain specimen) 10/29 18:25 Order name: CT Stone Protocol; Complete Time: 19:14 cp 10/29 19:21 Order name: Cath cp Administered Medications: 19:40 Drug: morphine 2 mg Route: IVP; Site: left upper arm; ch5 19:40 Drug: Zofran (Ondansetron) 4 mg Route: IVP; Site: left upper arm; ch5 20:38 Drug: Meropenem 1 grams Route: IV; Rate: calculated rate; Site: right antecubital; wr 20:39 Drug: NS 0.9% 500 ml Route: IV; Rate: bolus; Site: right antecubital; wr Disposition: 10/31 15:12 Co-signature as Attending Physician, Cooper Loving MD I agree with the assessment and marbella plan of care. Disposition Summary: 09/04/21 21:14 Hospitalization Ordered Hospitalization Status: Inpatient Admission cp Provider: Margarito Stallings cp Condition: Stable cp Problem: new cp Symptoms: have improved cp Bed/Room Type: Standard cp Location: Telemetry/MedSurg (Inpatient)(10/30/20 14:44) [facility] Room Assignment: 231(10/30/20 14:44) [facility] Diagnosis - Pneumonia in diseases classified elsewhere cp Forms: - Medication Reconciliation Form cp - SBAR form cp Signatures: Dispatcher [employer] EDMS Cooper Loving MD MD cha Williams, Irene, RN RN iw Josesito Natarajan, [employer]-C [employer]-Cla1 Cooper Foster PA PA cp Marilyn Gonzalez, RN BRENDA cg Jim Yoder RN RN [facility] Chinmay Dalton RN RN 5 Buster Kelly Corrections: (The following items were deleted from the chart) 10/29 20:11 19:20 CORONAVIRUS+MR.LAB.BRZ ordered. EDMD EDMD 20:50 20:28 Reviewed, Reviewed, Reviewed. cp cp 22:52 21:14 Telemetry/MedSurg (Inpatient) cp cg 22:52 21:14 cp cg 10/30 14:44 04 22:[address] [facility] ER HOLD cg [facility] 10/30 14:44 04 22:52 ERHOLD- cg [facility] 10/31 03:06 10/30 18:45 Constitutional: The patient appears in no acute distress, alert, awake, cp non-diaphoretic, non-toxic, well developed, well nourished, uncomfortable, cp 10/31 03:06 10/30 18:45 Head/Face: Normocephalic, atraumatic. cp cp
--- NOTE | 2020-10-29 21:15 | ER ---
Nurse's Notes [facility] Name: Yunior Lewis Age: 75 yrs Sex: Male : 1945 Arrival Date: 10/29/2020 Time: 17:55 Bed 14 Private MD: Diagnosis: Pneumonia in diseases classified elsewhere Presentation: 10/29 17:57 Chief complaint: EMS states: pt has hx of COPD, has been having general weakness and iw SOB on exertion, also having left kidney pain, edema noted to right abdomen, family reports mild jaundice, hx of afib , on eliquis. Coronavirus screen: At this time, the client does not indicate any symptoms associated with coronavirus-19. Ebola Screen: Patient negative for fever greater than or equal to 101.5 degrees Fahrenheit, and additional compatible Ebola Virus Disease symptoms Patient denies exposure to infectious person. Patient denies travel to an Ebola-affected area in the 21 days before illness onset. No symptoms or risks identified at this time. Initial Sepsis Screen: Does the patient meet any 2 criteria? No. Patient's initial sepsis screen is negative. Does the patient have a suspected source of infection? No. Patient's initial sepsis screen is negative. Risk Assessment: Do you want to hurt yourself or someone else? Patient reports no desire to harm self or others. Onset of symptoms was October 29, 2020. 17:57 Method Of Arrival: EMS: [facility] iw 17:57 Acuity: JAQUAN 3 iw Historical: - Allergies: 18:01 Demerol; iw 18:01 NSAIDS; iw 18:01 PENICILLINS; iw 18:01 Warfarin; iw - Home Meds: 18:01 allopurinol 100 mg Oral tab 1 tab 2 times per day [Active]; cholestyramine (bulk) iw miscellaneous powd daily [Active]; digoxin 125 mcg Oral tab 1 tab once daily [Active]; duloxetine 30 mg Oral cpDR 1 cap once daily [Active]; Eliquis 5 mg Oral tab 1 tab 2 times per day [Active]; furosemide 40 mg Oral tab 1 tab 2 times per day [Active]; hydrocodone-acetaminophen 7.5-325 mg Oral tab 1 tab every 4 hours [Active]; ipratropium bromide 0.02 % inhalation soln [Active]; Klor-Con 10 10 mEq Oral TbER 1 tab once daily [Active]; labetalol 200 mg Oral tab 1 tab 2 times per day [Active]; montelukast 10 mg Oral tab 1 tab once daily [Active]; mycophenolate mofetil 500 mg Oral tab 2 tabs 2 times per day [Active]; Novolin 70/30 Innolet Sub-Q 70-30 unit/mL [Active]; pantoprazole 40 mg Oral TbEC 1 tab once daily [Active]; prednisone 5 mg Oral tab 1 tab once daily [Active]; primidone 50 mg Oral tab 1 tabs 3 times per day [Active]; Restasis 0.05 % ophthalmic dpet 1 drop 2 times per day [Active]; rosuvastatin 10 mg Oral tab 1 tab once daily [Active]; spironolactone 50 mg Oral tab 1 tab once daily [Active]; tacrolimus 1 mg Oral cap every 12 hours [Active]; TRELEGY Ellipta 100mcg fluticasone furate, 62.5mcg umeclidinium \T\ 25mcg 1 puff daily [Active]; Ventolin Rotahaler/Rotacaps 90 mcg Inhl [Active]; Zioptan (PF) 0.0015 % ophthalmic dpet 1 drop once daily [Active]; - PMHx: 18:01 CHF; COPD; Diabetes - IDDM; gastritis; Heart Murmur; Hyperlipidemia; Hypertension; iw Sleep Apnea; - Immunization history:: Adult Immunizations up to date, Client reports receiving the 2nd dose of the Covid vaccine. - Social history:: Smoking status: Patient/guardian denies using tobacco. Screenin:20 Abuse screen: Denies threats or abuse. Denies injuries from another. Nutritional ch5 screening: No deficits noted. Tuberculosis screening: No symptoms or risk factors identified. Fall Risk None identified. Assessment: 18:20 Pain: Complains of pain in abdomen Pain currently is 3 out of 10 on a pain scale. ch5 Cardiovascular: Rhythm is. Respiratory: Airway is patent Respiratory effort is even, unlabored. GI: Abdomen is tender to palpation in right lower quadrant and left lower quadrant Swelling located in both lower quadrants. Vital Signs: 18:20 BP 117 / 78; Pulse 85; Resp 22; Temp 100.3; Pulse Ox 98% 3 lpm ; Weight 99.34 kg; ch5 Height 5 ft. 11 in. (180.34 cm); Pain 3/10; 20:44 BP 132 / 55; Pulse 83; Resp 18; Temp 99.3; Pulse Ox 99% on 4 lpm NC; Pain 0/10; wr 18:20 Body Mass Index 30.54 (99.34 kg, 180.34 cm) 5 ED Course: 17:55 Patient arrived in ED. iw 18:00 Triage completed. iw 18:02 Arm band placed on. iw 18:11 Cooper Foster PA is PHCP. cp 18:11 Cooper Loving MD is Attending Physician. cp 18:20 Chinmay Dalton, RN is Primary Nurse. ch5 18:20 Patient has correct armband on for positive identification. Placed in gown. Bed in low ch5 position. Call light in reach. Side rails up X2. 18:20 No provider procedures requiring assistance completed. ch5 18:49 CT Stone Protocol In Process Unspecified. EDMS 18:51 XRAY Chest (1 view) In Process Unspecified. EDMS 19:35 Initial lab(s) drawn. Inserted saline lock: 20 gauge in right antecubital area, using 5 aseptic technique. Blood collected. 19:59 Inserted saline lock: 20 gauge in left antecubital area, using aseptic technique. 5 21:12 Margarito Stallings MD is Hospitalizing Provider. cp Administered Medications: 19:40 Drug: morphine 2 mg Route: IVP; Site: left upper arm; ch5 19:40 Drug: Zofran (Ondansetron) 4 mg Route: IVP; Site: left upper arm; 5 20:38 Drug: Meropenem 1 grams Route: IV; Rate: calculated rate; Site: right antecubital; wr 20:39 Drug: NS 0.9% 500 ml Route: IV; Rate: bolus; Site: right antecubital; wr Outcome: 21:14 Decision to Hospitalize by Provider. 10/30 16:57 Patient left the ED. Signatures: Dispatcher [employer] Dede Odom RN BRENDA Cooper Foster PA PA Chinmay Valenzuela, RN RN [facility] Buster Kelly
[2020-10-29 21:52] LABS: Protime INR 1.33
[2020-10-29 22:02] LABS: NT PRO-BNP 2520 pg/mL (<450); Troponin (Emerg Dept Use Only) < 0.02 ng/mL (0.0-0.045)
[2020-10-29] MEDS ORDERED: ACETAMINOPHEN 500 MG TAB PO PRN (22:17)
[2020-10-29] MEDS ORDERED: ONDANSETRON 4 MG/2 ML VIAL IV PRN (22:17)
[2020-10-29] MEDS ORDERED: VANCOMYCIN/NS 1 gm 1 GM/250 ML BAG IVPB SCH (22:17)
[2020-10-29 22:35] LABS: Urine Blood Negative (Negative); Urine Glucose Negative (Negative); Urine Protein 1+ (Negative); Urine pH 5.5 (5.0-7.0)
[2020-10-29] MEDS ORDERED: VANCOMYCIN 2.5 GM in NA CHLORIDE 0.9% 500 ML IVPB ONE (23:00)
[2020-10-29] MEDS ORDERED: VANCOMYCIN 1 GM/VIAL ONE ×2 (23:11→23:13)
[2020-10-29 23:20] LABS: Urine Bacteria <20 /HPF (NONE SEEN); Urine Mucus 1+ /HPF (NONE SEEN); Urine RBC <5 /HPF (NONE SEEN)
--- NOTE | 2020-10-29 23:45 | P.HP ---
Certification for Inpatient Patient admitted to: Inpatient With expected LOS: >2 Midnights Patient will require the following post-hospital care: None Practitioner: I am a practitioner with admitting privileges, knowledge of patient current condition, hospital course, and medical plan of care. Services: Services provided to patient in accordance with Admission requirements found in Title 42 Section 412.3 of the Code of Federal Regulations Patient History Date of Service: 10/29/20 Reason for admission: Pneumonia History of Present Illness: 75-year-old male with history of chronic diastolic congestive heart failure, aortic stenosis status post TAVR, CAD status post recent stent to the LAD, chronic atrial fibrillation status post watchman procedure recently, chronic COPD, diabetes mellitus type 2, hypertension, renal [id number], hyperlipidemia, obstructive sleep apnea and GERD presents emerged department for shortness of breath. Daughter at bedside reports patient had multiple cardiac procedures earlier this year in August after hospitalization for pneumonia previous to this, noticed last few days his skin has been pale he has been sleeping more than normal, not acting himself. Patient was evaluated in the emergency department labs were significant for white blood cell count 20.0 hemoglobin 9.4 hematocrit 30.5 MCV 79.4 C-reactive protein greater than 190 procalcitonin 0.09 renal function stable BNP 2520 troponin less than 0.02 urinalysis negative for signs of infection Covid negative abdominal CT demonstrates lingular pneumonia mild bilateral lower lobe pneumonia, chest x-ray demonstrates moderate to marked left and mild right pulmonary opacities likely representing pneumonia. Patient with full drug allergies and recent hospitalization, ED provider placed patient on meropenem, have added vancomycin. Lactic acid normal, blood pressure normal doubt severe sepsis or septic shock at this time. Blood cultures obtained will admit for further evaluation and management. Allergies NSAIDS (Non-Steroidal Anti-Inflamma Allergy (Verified 01/13/20 22:44) stomach pains Penicillins Allergy (Verified 01/13/20 22:44) Itching/Hives/Rash aspirin Adverse Reaction (Verified 01/13/20 22:44) Rash warfarin Adverse Reaction (Verified 01/13/20 22:44) Rash Home Medications: Albuterol Inhaler [Ventolin Inhaler*] 2 puff IH Q4HP PRN 07/19/20 Allopurinol 100 mg PO BID 07/19/20 Apixaban [Eliquis] 5 mg PO BID 07/19/20 Carboxymethylcellulos/Glycerin [Refresh Optive Eye Drops] 1 - 2 drop EACH EYE Q2HP PRN 07/19/20 Cholestyramine [Cholestyramine Resin] 2 packet PO BEDTIME 07/19/20 Cyclosporine [Restasis] 1 - 2 drop EACH EYE BID 07/19/20 Diclofenac Sodium [Voltaren] 1 g TOP TIDP PRN 07/19/20 Digoxin [Lanoxin*] 0.125 mg PO DAILY 07/19/20 Duloxetine HCl [Cymbalta] 30 mg PO DAILY 07/19/20 Fluticasone/Umeclidin/Vilanter [Trelegy Ellipta 100-62.5-25] 1 unit IH DAILY 07/19/20 Furosemide [Lasix*] 40 mg PO BIDWM 07/19/20 Hydrocodone Bit/Acetaminophen [[place] 7.5-325 Tablet] 1 tab PO TIDP PRN 07/19/20 Insulin Aspart Prot/Insuln Asp [Novolog Mix 70-30 Flexpen] 15 unit SQ BIDWM 07/19/20 Ipratropium [place] 2 spray JYOTI QID 07/19/20 Labetalol HCl [Trandate] 200 mg PO DAILY 07/19/20 Mineral Oil, Light/Mineral Oil [Soothe Xp Eye Drops] 1 drop EACH EYE BEDTIME 07/19/20 Montelukast [Singulair*] 10 mg PO DAILY 07/19/20 Pantoprazole Sodium [Protonix] 40 mg PO BID 07/19/20 Potassium Oral Tab [Klor-Con 10 mEq Tab*] 10 meq PO DAILY 07/19/20 Primidone 50 mg PO TID 07/19/20 Rosuvastatin [Crestor*] 10 mg PO DAILY 07/19/20 Spironolactone 50 mg PO DAILY 07/19/20 Tacrolimus [Prograf] 1 mg PO BID 07/19/20 Tafluprost/Pf [Zioptan 0.0015% Eye Drops] 1 drop EACH EYE BEDTIME 07/19/20 mycophenolate mofetiL [Mycophenolate Mofetil] 1,000 mg PO BID 07/19/20 predniSONE [Prednisone*] 5 mg PO DAILY 07/19/20 Doxycycline Hyclate 100 mg PO BID 7 Days #14 tablet 07/21/20 predniSONE [Prednisone*] 20 mg PO BID 3 Days #6 tab 07/21/20 - Past Medical/Surgical History Diabetic: Yes -: COPD -: Chronic diastolic congestive heart failure -: A Fib S/P watchman procedure -: DM -: Arthritis -: GERD -: HTN -: Gout -: HLD -: CAD status post stent 2020 -: Severe aortic stenosis status post TAVR -: R KNEE REPLACEMENT -: KIDNEY TRANSPLANT -: 40% STOMACH REMOVAL -: CARPAL TUNNEL REPAIR -: Rt Hip Replacement -: Skin graft to nose -: Cholecystectomy -: Appendectomy Psychosocial/ Personal History: Patient lives at home - Family History Father -: Heart disease, Hypertension, Diabetes Mother -: Hypertension, Stroke - Social History Smoking Status: Former smoker Alcohol use: Yes CD- Drugs: No Caffeine use: Yes Place of Residence: Home Review of Systems 10-point ROS is otherwise unremarkable General: Fever, Chills, Weakness, Malaise Respiratory: Cough, Shortness of Breath Gastrointestinal: Abdominal Pain Physical Examination - Physical Exam General: Alert, In no apparent distress, Oriented x3 HEENT: Atraumatic, PERRLA, Other (Skin, mucous membranes pale) Neck: Supple, 2+ carotid pulse no bruit, No LAD Respiratory: Diminished Cardiovascular: Normal S1 S2, Irregular heart rate/rhythm (Atrial fibrillation, rate controlled) Capillary refill: <2 Seconds Gastrointestinal: Normal bowel sounds, No tenderness, No rebound, No guarding Musculoskeletal: No contractures, No erythema, No tenderness Integumentary: No rashes, No breakdown, No significant lesion Neurological: Normal speech, Normal strength at 5/5 x4 extr, Normal tone, Normal affect - Studies Laboratory Data (last 24 hrs) 10/29/20 19:47: PT 15.3 H, INR 1.33, APTT 26.6 10/29/20 19:47: WBC 20.00 H, Hgb 9.4 L, Hct 30.5 L, Plt Count 151 L 10/29/20 19:47: Sodium 140, Potassium 4.0, BUN 20 H, Creatinine 0.66, Glucose 177 H, Total Bilirubin 0.7, AST 7 L, ALT 12, Alkaline Phosphatase 60, Lipase 33 L Assessment and Plan - Plan Assessment: Hypoxic respiratory failure secondary to bilateral pneumonia Chronic diastolic congestive heart failure Aortic stenosis status post TAVR CAD status post recent stent to the LAD Atrial fibrillation on chronic anticoagulation therapy status post watchman procedure August 2020 Renal transplant 2010 Chronic COPD Diabetes mellitus type 2 Hyperlipidemia Obstructive sleep apnea GERD Plan: Hypoxic respiratory failure secondary to bilateral pneumonia: Continue with broad-spectrum antibiotics including meropenem/vancomycin at this time. Blood cultures and sputum cultures obtained, pending. Incentive spirometry. CT abdomen pelvis negative for any acute intra-abdominal findings, patient does report some left flank pain possibly referred pain from pneumonia. Patient without abdominal tenderness. Pulmonology consulted. Chronic diastolic congestive heart failure: BNP moderately elevated patient without any pedal edema possible CHF component, cardiology consulted for additional assistance. Aortic stenosis status post TAVR: Stable, patient on Eliquis 2.5 mg p.o. twice daily, Plavix 75 mg p.o. daily, this will continue until discontinued by his cardiology after confirmed watchman is functioning appropriately. CAD status post recent stent to the LAD: Stable continue as above patient without any chest pain at this time. Atrial fibrillation on chronic anticoagulation therapy status post watchman procedure August 2020: Continue with Eliquis 2.5 p.o. twice daily, Plavix 75 p.o. daily, obtain and continue home medications, working on obtaining home medications. Renal transplant 2010: Renal function stable at this time, patient had transplant at [facility]. Chronic COPD: No acute COPD component at this time, monitor provide medications as needed. Diabetes mellitus type 2: A [facility] Accu-Chek, sliding scale insulin therapy. Hyperlipidemia: Obtain and continue home medication Obstructive sleep apnea: Allow patient to use home CPAP. GERD: Obtain and continue home medication. DVT PPX:Continue Eliquis, plavix Code status:FC Discharge Plan: Home Plan to discharge in: Greater than 2 days - Advance Directives Does patient have a Living Will: No Does patient have a Durable POA for Healthcare: Yes - Code Status/Comfort Care Code Status Assessed: Yes (Full code) Critical Care: No Time Spent Managing Pts Care (In Minutes): 55
[2020-10-30 00:12] VITALS: BMI 30.5
[2020-10-30] MEDS ORDERED: ACETAMINOPHEN 500 MG TAB ONE (03:37)
[2020-10-30 03:46] LABS: Absolute Lymphocytes (CBC) 0.6 K/uL (0.7-4.9); Basophils % 0.3 % (0-1.3); Hematocrit 28.7 % (39.6-49.0); MPV 8.7 fL (7.6-11.3); RBC Red Blood Cell Count 3.64 M/uL (4.33-5.43)
[2020-10-30 04:15] LABS: ALT/SGPT 9 U/L (12-78); AST/SGOT 5 U/L (15-37); Albumin 2.9 g/dL (3.4-5.0); Alkaline Phosphatase 55 U/L (45-117); BUN Blood Urea Nitrogen 20 mg/dL (7-18); Bicarbonate 29 mmol/L (21-32); Bilirubin Total 0.7 mg/dL (0.2-1.0); Glucose Level 137 mg/dL (74-106); HDL Cholesterol 52 mg/dL (40-60); LDL Cholesterol, Calculated 42 (<130); Magnesium 1.9 mg/dL (1.8-2.4); Protein, Total 6.2 g/dL (6.4-8.2); Sodium Level 142 mmol/L (136-145); Thyroid Stimulating Hormone 0.694 uIU/mL (0.360-3.740)
[2020-10-30] MEDS: BENZONATATE 100 MG CAP PO PRN ×3 (05:38→22:06)
[2020-10-30] MEDS: Meropenem 1 GM/100 ML BAG IV SCH ×2 (06:00→13:55)
[2020-10-30] MEDS ORDERED: BENZONATATE 100 MG CAP PO ONE ×2 (06:00→13:37)
[2020-10-30] MEDS ORDERED: Meropenem 1000 MG/VIAL IV ONE (06:24)
[2020-10-30] MEDS ORDERED: NA CHLORIDE 0.9% 100 ML ONE (06:26)
--- NOTE | 2020-10-30 06:53 | P.PN ---
Subjective Date of Service: 10/30/20 Chief Complaint: Pneumonia Subjective: Improving (Feeling better today, little bit more energy, breathing more comfortably) Review of Systems 10-point ROS is otherwise unremarkable Physical Examination - Vital Signs Temperature: 98 F Blood Pressure: 122/62 Pulse: 82 Respirations: 18 Pulse Ox (%): 99 - Studies Laboratory Data (last 24 hrs) 10/29/20 19:47: PT 15.3 H, INR 1.33, APTT 26.6 10/29/20 19:47: WBC 20.00 H, Hgb 9.4 L, Hct 30.5 L, Plt Count 151 L 10/29/20 19:47: Sodium 140, Potassium 4.0, BUN 20 H, Creatinine 0.66, Glucose 177 H, Total Bilirubin 0.7, AST 7 L, ALT 12, Alkaline Phosphatase 60, Lipase 33 L Assessment & Plan Physician Review Additional Text: Physical exam GEN: Alert, oriented, appears fatigued HEENT: Normal conjunctiva, sclera anicteric CV: Irregular rate/rhythm, no edema Pulm: Nonlabored respiration on 3L NC ABD: Soft, nontender, nondistended Neuro: Normal speech, normal affect Problem list Hypoxic respiratory failure secondary to bilateral pneumonia Chronic diastolic congestive heart failure Aortic stenosis status post TAVR CAD status post recent stent to the LAD Atrial fibrillation on chronic anticoagulation therapy status post watchman procedure August 2020 Renal transplant 2010 Chronic COPD Diabetes mellitus type 2 Hyperlipidemia Obstructive sleep apnea GERD Hypoxic respiratory failure secondary to bilateral pneumonia: Continue with broad-spectrum antibiotics including meropenem/vancomycin at this time. Blood cultures and sputum cultures obtained, pending. Incentive spirometry. CT abdomen pelvis negative for any acute intra-abdominal findings, patient does report some left flank pain possibly referred pain from pneumonia. Patient without abdominal tenderness. Pulmonology consulted. Chronic diastolic congestive heart failure: possible CHF component, cardiology consulted for additional assistance given recent interventions Aortic stenosis status post TAVR: Stable, patient on Eliquis 2.5 mg p.o. twice daily, Plavix 75 mg p.o. daily, this will continue until discontinued by his cardiology after confirmed watchman is functioning appropriately. CAD status post recent stent to the LAD: Stable continue as above patient without any chest pain at this time. Atrial fibrillation on chronic anticoagulation therapy status post watchman procedure August 2020: Continue with Eliquis 2.5 p.o. twice daily, Plavix 75 p.o. daily, obtain and continue home medications, working on obtaining home medications. Renal transplant 2010: Renal function stable at this time, patient had transpl ant at [facility]. Chronic COPD: No acute COPD component at this time, monitor provide medications as needed. Diabetes mellitus type 2: A [facility] Accu-Chek, sliding scale insulin therapy. Hyperlipidemia: Obtain and continue home medication Obstructive sleep apnea: Allow patient to use home CPAP. GERD: Obtain and continue home medication. Dispo: Anticipate DC home in ~2-3 days Time Spent Managing Pts Care (In Minutes): 35
[2020-10-30] MEDS: INSULIN -REGULAR HUMAN 50 UNIT/0.5 ML ML SQ SCH ×4 (07:30→21:00)
[2020-10-30] MEDS ORDERED: APIXABAN 5 MG TABLET ONE (07:39)
[2020-10-30] MEDS ORDERED: CLOPIDOGREL 75 MG TABLET ONE (07:40)
[2020-10-30] MEDS: APIXABAN 2.5 MG TABLET PO SCH ×2 (08:16→22:06)
[2020-10-30] MEDS: CLOPIDOGREL 75 MG TABLET PO SCH (08:16)
--- NOTE | 2020-10-30 11:59 | CON ---
Date of Consultation: 10/30/2020 Reason For Consultation: Congestive heart failure, history of TAVR, atrial fibrillation, history of Watchman, history of recent stent. History Of Present Illness: Mr. Lewis is 75-year-old, he has paroxysmal atrial fibrillation, but was intolerant to anticoagulation. He had a history of LAD stenosis. He just had a TAVR for aortic aramis nosis, Watchman for his intolerance to anticoagulation. He just had an LAD stent. All of those were done by Dr. Ty recently over the last month or so. He comes in with a pneumonia. Past Medical History: As stated above. Allergies: NONSTEROIDAL ANTI-INFLAMMATORY AGENT, ASPIRIN AND COUMADIN. Review of Systems: Negative. Social History: Negative. Family History: Negative. Medications: At home include inhalers, Lasix Aldactone, Protonix, Singulair, Restasis, Eliquis, allo purinol, Voltaren, insulin, labetalol, Crestor, Lanoxin, Cymbalta. Physical Examination: General: He is in mild respiratory distress, sinus rhythm. HEENT: Negative. Neck: Supple with no bruit. Chest: Revealed bilateral rales. Cardiac: Revealed a regular rhythm and rate without any aortic stenosis, murmur. He did not have an y gallops or rubs. He was in atrial fibrillation at a rate of 80. Abdomen: Benign. Extremities: Revealed no clubbing, cyanosis, or edema. Diagnostic Data: Showed an EKG with atrial fibrillation, controlled rate. White count was 18,000, h emoglobin 8.8. BNP is 2520. Chest x-ray showed pneumonia. Impression And Plan: 1.This is a patient with pneumonia causing his symptoms. 2.Atrial fibrillation, rate controlled, status post Watchman. He is on Eliquis and we will probably keep him on that for about 45 days total. 3.History of transcatheter aortic valve replacement for aortic stenosis. 4.History of LAD stent recently. We are not dealing with any acute coronary syndrome here. An echoc ardiogram is pending. 5.Chronic obstructive pulmonary disease, on inhalers. 6.Chronic diastolic congestive heart failure, on Lasix, Aldactone and beta-blockers. 7.Gout, on allopurinol. 8.Depression. 9.Restless legs syndrome. 10.Diabetes, on insulin, well controlled. 11.Dyslipidemia. 12.Gastroesophageal reflux disease. I will continue all his regimen, treated for antibiotics. He i s now on antibiotics, Eliquis, and Plavix. We will continue that as well. Echocardiogram is pending . We will continue to follow as needed. NISHANT Voice ID: [id number] Report ID: [id number]
[2020-10-30] MEDS ORDERED: Meropenem 1 GM/100 ML BAG ONE (14:04)
[2020-10-30] MEDS ORDERED: VANCOMYCIN 1.75 GM in NA CHLORIDE 0.9% 500 ML IVPB SCH (17:00)
--- NOTE | 2020-10-30 20:33 | P.CNS ---
Date of Consult: 11/05/20 Chief Complaint: Pneumonia History of Present Illness: Age 75 multiple med problems aw SOB, AMS, AW pneumonia of left lung Allergies NSAIDS (Non-Steroidal Anti-Inflamma Allergy (Verified 01/13/20 22:44) stomach pains Penicillins Allergy (Verified 01/13/20 22:44) Itching/Hives/Rash aspirin Adverse Reaction (Verified 01/13/20 22:44) Rash warfarin Adverse Reaction (Verified 01/13/20 22:44) Rash Home Medications: Allopurinol 100 mg PO BID 07/19/20 Apixaban [Eliquis] 5 mg PO BID 07/19/20 Diclofenac Sodium [Voltaren] 1 g TOP TIDP PRN 07/19/20 Digoxin [Lanoxin*] 0.125 mg PO DAILY 07/19/20 Duloxetine HCl [Cymbalta] 30 mg PO DAILY 07/19/20 Furosemide [Lasix*] 40 mg PO BIDWM 07/19/20 Labetalol HCl [Trandate] 200 mg PO BID 07/19/20 Montelukast [Singulair*] 10 mg PO DAILY 07/19/20 Pantoprazole Sodium [Protonix] 40 mg PO BID 07/19/20 Potassium Oral Tab [Klor-Con 10 mEq Tab*] 10 meq PO DAILY 07/19/20 Primidone 50 mg PO TID 07/19/20 Rosuvastatin [Crestor*] 10 mg PO DAILY 07/19/20 Spironolactone 50 mg PO DAILY 07/19/20 Tacrolimus [Prograf] 1 mg PO BID 07/19/20 mycophenolate mofetiL [Mycophenolate Mofetil] 1,000 mg PO BID 07/19/20 predniSONE [Prednisone*] 5 mg PO DAILY 07/19/20 Clopidogrel Bisulfate [Plavix] 75 mg PO DAILY 10/30/20 Hydrocodone Bit/Acetaminophen [Hydrocodon-Acetaminoph 7.5-325] 1 each PO TID PRN 10/30/20 Trazodone [Desyrel] 50 mg PO BEDTIME 10/30/20 - Past Medical/Surgical History Diabetic: Yes -: COPD -: Chronic diastolic congestive heart failure -: A Fib S/P watchman procedure -: DM -: Arthritis -: GERD -: HTN -: Gout -: HLD -: CAD status post stent LAD 2020 -: Severe aortic stenosis status post TAVR -: R KNEE REPLACEMENT -: KIDNEY TRANSPLANT -: 40% STOMACH REMOVAL -: CARPAL TUNNEL REPAIR -: Rt Hip Replacement -: Skin graft to nose -: Cholecystectomy -: Appendectomy Psychosocial/ Personal History: Patient lives at home - Family History Father Medical History: Heart disease, Hypertension, Diabetes Mother Medical History: Hypertension, Stroke - Social History Smoking Status: Former smoker Alcohol use: Yes CD- Drugs: No Caffeine use: Yes Place of Residence: Home Review of Systems General: Weakness Respiratory: Shortness of Breath Physical Examination Temp Pulse Resp BP Pulse Ox 98 F 82 18 122/62 99 10/30/20 17:41 10/30/20 17:41 10/30/20 17:41 10/30/20 17:41 10/30/20 17:41 General: Alert, Oriented x3 Respiratory: Diminished (left side) Laboratory Data (last 24 hrs) 10/29/20 19:47: PT 15.3 H, INR 1.33, APTT 26.6 10/29/20 19:47: Sodium 140, Potassium 4.0, BUN 20 H, Creatinine 0.66, Glucose 177 H, Total Bilirubin 0.7, AST 7 L, ALT 12, Alkaline Phosphatase 60, Lipase 33 L - Problems (1) Pneumonia Current Visit: No Status: Acute Plan: Age 75 AW Left lung pneumonia/ WBC elevated declining. Change to levaquin 750/ discharge palnning am Qualifiers: Pneumonia type: due to unspecified organism Laterality: left (2) Microcytic anemia Current Visit: Yes Status: Acute Plan: Hx of iron def anemia. Repet kurtisn studies/ likey need IV iron
[2020-10-30] MEDS ORDERED: HYDROCODONE/APAP 7.5/325 MG TAB PO PRN (20:51)
[2020-10-30] MEDS: allopurinoL 100 MG TAB PO SCH (21:00)
[2020-10-30] MEDS: PRIMIDONE 50 MG TAB PO SCH (21:00)
[2020-10-30] MEDS: TRAZODONE 50 MG TABLET PO SCH (21:00)
[2020-10-30] MEDS: Tacrolimus [Prograf] 1 MG Capsule PO SCH (21:00)
[2020-10-30] MEDS ORDERED: PANTOPRAZOLE 40MG TABLET PO SCH (21:00)
[2020-10-30] MEDS ORDERED: LABETALOL HCL 200 MG PO SCH (21:00)
[2020-10-30 21:42] LABS: Ferritin 145.2 ng/mL (26-388)
[2020-10-31 05:53] LABS: Absolute Lymphocytes (CBC) 0.4 K/uL (0.7-4.9); Basophils % 0.3 % (0-1.3); Hematocrit 28.8 % (39.6-49.0); Lymphocytes % 2.6 % (15.3-44.8); MPV 8.6 fL (7.6-11.3); RBC Red Blood Cell Count 3.66 M/uL (4.33-5.43)
[2020-10-31 06:01] LABS: ALT/SGPT 9 U/L (12-78); AST/SGOT 7 U/L (15-37); Albumin 2.6 g/dL (3.4-5.0); Alkaline Phosphatase 58 U/L (45-117); BUN Blood Urea Nitrogen 20 mg/dL (7-18); Bicarbonate 29 mmol/L (21-32); Bilirubin Total 0.6 mg/dL (0.2-1.0); Glucose Level 132 mg/dL (74-106); Magnesium 1.8 mg/dL (1.8-2.4); Potassium 4.3 mmol/L (3.5-5.1); Protein, Total 6.4 g/dL (6.4-8.2); Sodium Level 137 mmol/L (136-145)
--- NOTE | 2020-10-31 06:26 | P.PN ---
Subjective Date of Service: 10/31/20 Chief Complaint: Pneumonia Subjective: Improving (Reports felt well overnight on a CPAP with oxygen, this morning slightly more dyspneic.) Review of Systems 10-point ROS is otherwise unremarkable Physical Examination - Vital Signs Temperature: 97.9 F Blood Pressure: 161/77 Pulse: 91 Respirations: 19 Pulse Ox (%): 95 Assessment & Plan Physician Review Additional Text: Physical exam GEN: Alert, oriented, appears fatigued HEENT: Normal conjunctiva, sclera anicteric CV: Irregular rate/rhythm, no edema Pulm: mildly labored respiration on 3L NC ABD: Soft, nontender, nondistended Neuro: Normal speech, normal affect Problem list Hypoxic respiratory failure secondary to bilateral pneumonia Chronic diastolic congestive heart failure Aortic stenosis status post TAVR CAD status post recent stent to the LAD Atrial fibrillation on chronic anticoagulation therapy status post watchman procedure August 2020 Renal transplant 2010 Chronic COPD Diabetes mellitus type 2 Hyperlipidemia Obstructive sleep apnea GERD Chronic anemia, iron deficiency Hypoxic respiratory failure secondary to bilateral pneumonia: Continue with broad-spectrum antibiotics including meropenem/vancomycin at this time. Blood cultures and sputum cultures obtained, pending. Incentive spirometry. CT abdomen pelvis negative for any acute intra-abdominal findings, patient does report some left flank pain possibly referred pain from pneumonia. Patient without abdominal tenderness. Pulmonology consulted. Chronic anemia, iron deficiency Discussed with pulmonology, start IV iron Chronic diastolic congestive heart failure: possible CHF component, cardiology consulted for additional assistance given recent interventions Aortic stenosis status post TAVR: Stable, patient on Eliquis 2.5 mg p.o. twice daily, Plavix 75 mg p.o. daily, this will continue until discontinued by his cardiology after confirmed watchman is functioning appropriately. CAD status post recent stent to the LAD: Stable continue as above patient without any chest pain at this time. Atrial fibrillation on chronic anticoagulation therapy status post watchman procedure August 2020: Continue with Eliquis 2.5 p.o. twice daily, Plavix 75 p.o. daily, obtain and continue home medications, working on obtaining home medications. Renal transplant 2010: Renal function stable at this time, patient had transplant at [facility]. Chronic COPD: No acute COPD component at this time, monitor provide medications as needed. Diabetes mellitus type 2: A [facility] Accu-Chek, sliding scale insulin therapy. Hyperlipidemia: Obtain and continue home medication Obstructive sleep apnea: Allow patient to use home CPAP. GERD: Obtain and continue home medication. Dispo: Anticipate DC home in ~1-2 days Time Spent Managing Pts Care (In Minutes): 35
[2020-10-31] MEDS ORDERED: MAGNESIUM SULFATE 1 gm IVPB 1 GM/100 ML BAG IV ONE (06:35)
[2020-10-31] MEDS: INSULIN -REGULAR HUMAN 50 UNIT/0.5 ML ML SQ SCH ×4 (07:30→21:00)
[2020-10-31] MEDS: PRIMIDONE 50 MG TAB PO SCH ×3 (09:00→21:00)
[2020-10-31] MEDS: Tacrolimus [Prograf] 1 MG Capsule PO SCH ×2 (09:00→21:00)
[2020-10-31] MEDS: DIGOXIN 0.125 MG TABLET PO SCH (09:34)
[2020-10-31] MEDS: CLOPIDOGREL 75 MG TABLET PO SCH (09:35)
[2020-10-31] MEDS: PANTOPRAZOLE 40MG TABLET PO SCH ×2 (09:35→16:21)
[2020-10-31] MEDS: MONTELUKAST 10 MG TAB PO SCH (09:35)
[2020-10-31] MEDS: SPIRONOLACTONE 25 MG TABLET PO SCH (09:36)
[2020-10-31] MEDS: allopurinoL 100 MG TAB PO SCH ×2 (09:36→22:25)
[2020-10-31] MEDS: ROSUVASTATIN 10 MG TAB PO SCH (09:36)
[2020-10-31] MEDS: levoFLOXacin 750 MG TAB PO SCH (09:36)
[2020-10-31] MEDS: LABETALOL HCL 100 MG TAB PO SCH ×2 (09:36→22:26)
[2020-10-31] MEDS: predniSONE 5 MG TAB PO SCH (09:36)
[2020-10-31] MEDS: APIXABAN 2.5 MG TABLET PO SCH ×2 (09:37→21:00)
[2020-10-31] MEDS: DULOXETINE 30 MG CAP PO SCH (09:37)
[2020-10-31] MEDS: FUROSEMIDE 40 MG TABLET PO SCH ×2 (13:13→18:26)
[2020-10-31] MEDS: SOD FERRIC GLUC COMPLX/SUCROSE 250 MG in NA CHLORIDE 0.9% 250 ML IV SCH (16:21)
[2020-10-31] MEDS: TRAZODONE 50 MG TABLET PO SCH (21:00)
[2020-10-31] MEDS: BENZONATATE 100 MG CAP PO PRN (22:26)
[2020-11-01 06:28] LABS: Absolute Lymphocytes (CBC) 0.4 K/uL (0.7-4.9); Basophils % 0.2 % (0-1.3); Hematocrit 26.8 % (39.6-49.0); Lymphocytes % 2.9 % (15.3-44.8); MPV 8.9 fL (7.6-11.3); RBC Red Blood Cell Count 3.47 M/uL (4.33-5.43)
[2020-11-01 06:37] LABS: ALT/SGPT 13 U/L (12-78); AST/SGOT 12 U/L (15-37); Albumin 2.5 g/dL (3.4-5.0); Alkaline Phosphatase 68 U/L (45-117); BUN Blood Urea Nitrogen 22 mg/dL (7-18); Bicarbonate 29 mmol/L (21-32); Bilirubin Total 0.5 mg/dL (0.2-1.0); Glucose Level 129 mg/dL (74-106); Magnesium 1.8 mg/dL (1.8-2.4); Potassium 3.7 mmol/L (3.5-5.1); Protein, Total 6.1 g/dL (6.4-8.2); Sodium Level 136 mmol/L (136-145)
[2020-11-01] MEDS: PANTOPRAZOLE 40MG TABLET PO SCH ×2 (07:30→16:30)
[2020-11-01] MEDS: predniSONE 5 MG TAB PO SCH (08:00)
[2020-11-01] MEDS: FUROSEMIDE 40 MG TABLET PO SCH ×2 (08:00→17:00)
[2020-11-01] MEDS: PRIMIDONE 50 MG TAB PO SCH ×3 (09:00→20:46)
[2020-11-01] MEDS: allopurinoL 100 MG TAB PO SCH ×2 (09:00→20:42)
[2020-11-01] MEDS: APIXABAN 2.5 MG TABLET PO SCH ×2 (09:00→20:42)
[2020-11-01] MEDS: CLOPIDOGREL 75 MG TABLET PO SCH (09:00)
[2020-11-01] MEDS: MONTELUKAST 10 MG TAB PO SCH (09:00)
[2020-11-01] MEDS: DIGOXIN 0.125 MG TABLET PO SCH (09:00)
[2020-11-01] MEDS: DULOXETINE 30 MG CAP PO SCH (09:00)
[2020-11-01] MEDS: ROSUVASTATIN 10 MG TAB PO SCH (09:00)
[2020-11-01] MEDS: Tacrolimus [Prograf] 1 MG Capsule PO SCH ×2 (09:00→20:44)
[2020-11-01] MEDS: SPIRONOLACTONE 25 MG TABLET PO SCH (09:00)
[2020-11-01] MEDS: levoFLOXacin 750 MG TAB PO SCH (09:00)
[2020-11-01] MEDS: LABETALOL HCL 100 MG TAB PO SCH ×2 (09:00→20:41)
[2020-11-01] MEDS: INSULIN -REGULAR HUMAN 50 UNIT/0.5 ML ML SQ SCH ×4 (11:30→20:45)
[2020-11-01] MEDS: SOD FERRIC GLUC COMPLX/SUCROSE 250 MG in NA CHLORIDE 0.9% 250 ML IV SCH (13:30)
--- NOTE | 2020-11-01 15:31 | PN ---
Date of Progress Note: 11/01/2020 Subjective: Mr. Lewis came in with pneumonia. Has a history of TAVR, Watchman, atrial fibrillation. Echocardiogram which was done today showed that the TAVR is in excellent condition and functioning normally. You can see has a Watchman device and there are no clots. Remains in atrial fibrillation. Ejection fraction is normal. Pneumonia is being treated with antibiotics. He has improved. No pl an to change any medical therapy. He can go home whenever is okay with admitting physician and we will see him in the office very soon. RADHA/TALIA Voice ID: [id number] Report ID: [id number]
--- NOTE | 2020-11-01 15:40 | PN ---
Subjective: Mr. Lewis came in with atrial fibrillation, congestive heart failure. He has a history of recent TAVR, recent Watchman, recent LAD stent by Dr. Ty. His main issue is really shortness of breath, but he has pneumonia that is being treated. He has improved overnight. He remains in atr ial fibrillation rate controlled. He does not have any chest pain. Shortness of breath is better. Oxygen saturation is adequate. Echocardiogram is pending for 11/01/2020. No changes in therapy for now. NB/MODL Voice ID: [id number] Report ID: [id number]
--- NOTE | 2020-11-01 16:01 | P.PN ---
Subjective Date of Service: 11/01/20 Chief Complaint: Pneumonia No major changes from yesterday. Patient is short of breath with speech. Currently on 3 L oxygen by nasal cannula. Physical Examination - Vital Signs Temperature: 97.6 F Blood Pressure: 143/75 Pulse: 103 Respirations: 19 Pulse Ox (%): 95 - Physical Exam General: Alert, In no apparent distress HEENT: Other (Oxygen by nasal cannula) Neck: JVD not distended Respiratory: Diminished, Crackles/rales (Bilateral) Cardiovascular: Irregular heart rate/rhythm Gastrointestinal: Normal bowel sounds, Soft and benign, Non-distended Musculoskeletal: No swelling Integumentary: Other (Bilateral lower extremity venostasis dermatitis) Neurological: Other (No focal motor deficit.) Assessment And Plan Physician Review Additional Text: Problem list Hypoxic respiratory failure secondary to bilateral pneumonia Chronic diastolic congestive heart failure Aortic stenosis status post TAVR CAD status post recent stent to the LAD Atrial fibrillation on chronic anticoagulation therapy status post watchman procedure August 2020 Renal transplant 2010 Chronic COPD Diabetes mellitus type 2 Hyperlipidemia Obstructive sleep apnea GERD Chronic anemia, iron deficiency Hypoxic respiratory failure secondary to bilateral pneumonia: Continue with broad-spectrum antibiotics including meropenem/vancomycin at this time. Blood cultures: No growth to date. Sputum cultures: Pending. Incentive spirometry. CT abdomen pelvis negative for any acute intra-abdominal findings. Chronic anemia, iron deficiency Continue IV iron Chronic diastolic congestive heart failure: Possible decompensation contributing to shortness of breath. Continue oral Lasix. Aortic stenosis status post TAVR: Stable, patient on Eliquis 2.5 mg p.o. twice daily, Plavix 75 mg p.o. daily, this will continue until discontinued by his cardiology after confirmed watchman is functioning appropriately. CAD status post recent stent to the LAD: Stable. Atrial fibrillation on chronic anticoagulation therapy status post watchman procedure August 2020: Continue with Eliquis 2.5 p.o. twice daily, Plavix 75 p.o. daily. Renal transplant 2010: Renal function stable at this time, patient had transplant at [facility]. Chronic COPD: No acute COPD component at this time, monitor provide medications as needed. Diabetes mellitus type 2: A [facility] Accu-Chek, sliding scale insulin therapy. Hyperlipidemia: Obtain and continue home medication Obstructive sleep apnea: Allow patient to use home CPAP. GERD: Obtain and continue home medication. Dispo: Anticipate DC home in ~1-2 days
[2020-11-01] MEDS: BENZONATATE 100 MG CAP PO PRN (20:41)
[2020-11-01] MEDS: TRAZODONE 50 MG TABLET PO SCH (20:42)
[2020-11-02 06:20] LABS: ALT/SGPT 21 U/L (12-78); AST/SGOT 20 U/L (15-37); Albumin 2.6 g/dL (3.4-5.0); Alkaline Phosphatase 81 U/L (45-117); BUN Blood Urea Nitrogen 22 mg/dL (7-18); Bicarbonate 30 mmol/L (21-32); Bilirubin Total 0.4 mg/dL (0.2-1.0); Glucose Level 120 mg/dL (74-106); Magnesium 1.7 mg/dL (1.8-2.4); Protein, Total 6.5 g/dL (6.4-8.2); Sodium Level 138 mmol/L (136-145)
[2020-11-02 07:02] LABS: Absolute Lymphocytes (CBC) 0.4 K/uL (0.7-4.9); Basophils % 0.2 % (0-1.3); Hematocrit 28.9 % (39.6-49.0); Lymphocytes % 3.8 % (15.3-44.8); MPV 8.6 fL (7.6-11.3); RBC Red Blood Cell Count 3.74 M/uL (4.33-5.43)
--- NOTE | 2020-11-02 07:29 | ECHO ---
HEIGHT: 5 ft 11 in WEIGHT: 219 lb 0 oz DATE OF STUDY: 11/01/[address]: Dov Michel MD 2-DIMENSIONAL: YES M.MODE: YES DOPPLER: YES COLOR FLOW: YES TDS: PORTABLE: DEFINITY: BUBBLE STUDY: DIAGNOSIS: AORTIC STENOSIS/ TRANSCATHETER AORTIC VALVE REPLACEMENT CARDIAC HISTORY: CATHERIZATION: SURGERY: TAVR PROSTHETIC VALVE: YES PACEMAKER: MEASUREMENTS (cm) DIASTOLIC (NORMALS) SYSTOLIC (NORMALS) IVSd 1.2 (0.6-1.2) LA Diam (1.9-4.0) LVEF 79% LVIDd 4.2 (3.5-5.7) LVIDs 2.2 (2.0-3.5) %FS 47% LVPWd 1.2 (0.6-1.2) Ao Diam 3.2 (2.0-3.7) 2 DIMENSIONAL ASSESSMENT: RIGHT ATRIUM: NORMAL LEFT ATRIUM: DILATED RIGHT VENTRICLE: NORMAL LEFT VENTRICLE: NORMAL TRICUSPID VALVE: NORMAL MITRAL VALVE: NORMAL PULMONIC VALVE: NORMAL AORTIC VALVE: STATUS POST AORTIC VALVE REPLACEMENT PERICARDIAL EFFUSION: NONE AORTIC ROOT: NORMAL LEFT VENTRICULAR WALL MOTION: NORMAL EJECTION FRACTION DOPPLER/COLOR FLOW: MODERATE TRICUSPID REGURGITATION. COMMENTS: NORMAL EJECTION FRACTION. NORMAL TRANSCATHETER AORTIC VALVE REPLACEMENT. ATRIAL FIBRILLATION. MODERATE TRICUSPID REGURGITATION. RIGHT VENTRICULAR SYSTOLIC PRESSURE 55 mmHg. TECHNOLOGIST: MAXIMILIANO JACKSON
[2020-11-02] MEDS: INSULIN -REGULAR HUMAN 50 UNIT/0.5 ML ML SQ SCH ×4 (07:30→21:00)
[2020-11-02] MEDS ORDERED: MAGNESIUM SULFATE 1 gm IVPB 1 GM/100 ML BAG IV ONE (08:30)
[2020-11-02] MEDS: SOD FERRIC GLUC COMPLX/SUCROSE 250 MG in NA CHLORIDE 0.9% 250 ML IV SCH (09:00)
[2020-11-02] MEDS: Tacrolimus [Prograf] 1 MG Capsule PO SCH ×2 (09:00→21:00)
[2020-11-02] MEDS: PANTOPRAZOLE 40MG TABLET PO SCH ×2 (10:09→16:09)
[2020-11-02] MEDS: levoFLOXacin 750 MG TAB PO SCH (10:09)
[2020-11-02] MEDS: DULOXETINE 30 MG CAP PO SCH (10:09)
[2020-11-02] MEDS: DIGOXIN 0.125 MG TABLET PO SCH (10:09)
[2020-11-02] MEDS: CLOPIDOGREL 75 MG TABLET PO SCH (10:10)
[2020-11-02] MEDS: predniSONE 5 MG TAB PO SCH (10:10)
[2020-11-02] MEDS: APIXABAN 2.5 MG TABLET PO SCH ×2 (10:10→22:13)
[2020-11-02] MEDS: ROSUVASTATIN 10 MG TAB PO SCH (10:10)
[2020-11-02] MEDS: FUROSEMIDE 40 MG TABLET PO SCH ×2 (10:10→18:42)
[2020-11-02] MEDS: LABETALOL HCL 100 MG TAB PO SCH ×2 (10:11→22:13)
[2020-11-02] MEDS: SPIRONOLACTONE 25 MG TABLET PO SCH (10:11)
[2020-11-02] MEDS: MONTELUKAST 10 MG TAB PO SCH (10:11)
[2020-11-02] MEDS: allopurinoL 100 MG TAB PO SCH ×2 (10:12→22:13)
[2020-11-02] MEDS: PRIMIDONE 50 MG TAB PO SCH ×3 (10:31→22:12)
--- NOTE | 2020-11-02 10:49 | RAD REPORT ---
EXAM DESCRIPTION: Janell Single View11/02/2020 10:09 am CLINICAL HISTORY: Shortness of breath COMPARISON: October 29, 2020 FINDINGS: Mild improvement in the bilateral pulmonary opacities. The heart remains enlarged. Small p leural effusions IMPRESSION: Mild improvement in the bilateral pulmonary opacities
[2020-11-02] MEDS: IPRATROPIUM BROM 0.5MG/2.5ML NEB SCH ×2 (14:10→21:15)
[2020-11-02] MEDS: ALBUTEROL 2.5 MG/3 ML NEB SOL NEB SCH ×2 (14:10→21:15)
--- NOTE | 2020-11-02 15:48 | P.PN ---
Subjective Date of Service: 11/02/20 Chief Complaint: Pneumonia Patient states he feels better compared to yesterday. He states the shortness of breath has improved. He was seen sitting up in a chair. Maintained on 3 L oxygen by nasal cannula. Physical Examination - Vital Signs Temperature: 98 F Blood Pressure: 109/59 Pulse: 89 Respirations: 24 Pulse Ox (%): 98 - Physical Exam General: Alert, In no apparent distress, Oriented x3 HEENT: Mucous membr. moist/pink Neck: JVD not distended Respiratory: Clear to auscultation bilaterally, Normal air movement Cardiovascular: Normal S1 S2, Edema (Trace bilateral lower extremity edema), Irregular heart rate/rhythm Gastrointestinal: Soft and benign, Non-distended Integumentary: Other (Bilateral lower extremity venostasis dermatitis) Neurological: Normal strength at 5/5 x4 extr Assessment And Plan Physician Review Additional Text: Problem list Hypoxic respiratory failure secondary to bilateral pneumonia Chronic diastolic congestive heart failure Aortic stenosis status post TAVR CAD status post recent stent to the LAD Atrial fibrillation on chronic anticoagulation therapy status post watchman procedure August 2020 Renal transplant 2010 Chronic COPD Diabetes mellitus type 2 Hyperlipidemia Obstructive sleep apnea GERD Chronic anemia, iron deficiency Hypoxic respiratory failure secondary to bilateral pneumonia: Continue with broad-spectrum antibiotics including meropenem/vancomycin at this time. Blood cultures: No growth to date. Sputum cultures: Pending. Incentive spirometry. CT abdomen pelvis negative for any acute intra-abdominal findings. Chronic anemia, iron deficiency Continue IV iron Chronic diastolic congestive heart failure: Possible decompensation contributing to shortness of breath. Continue oral Lasix. Aortic stenosis status post TAVR: Stable, patient on Eliquis 2.5 mg p.o. twice daily, Plavix 75 mg p.o. daily, this will continue until discontinued by his c ardiology after confirmed watchman is functioning appropriately. CAD status post recent stent to the LAD: Stable. Atrial fibrillation on chronic anticoagulation therapy status post watchman procedure August 2020: Continue with Eliquis 2.5 p.o. twice daily, Plavix 75 p.o. daily. Renal transplant 2010: Renal function stable at this time, patient had transplant at [facility]. Chronic COPD: No acute COPD component at this time. Start on bronchodilators. Diabetes mellitus type 2: A [facility] Accu-Chek, sliding scale insulin therapy. Hyperlipidemia: Obtain and continue home medication Obstructive sleep apnea: Allow patient to use home CPAP. GERD: Obtain and continue home medication. PT to evaluate for disposition. Dispo: Anticipate DC home in ~1-2 days
[2020-11-02] MEDS: TRAZODONE 50 MG TABLET PO SCH (22:13)
[2020-11-03] MEDS: IPRATROPIUM BROM 0.5MG/2.5ML NEB SCH ×3 (02:25→15:04)
[2020-11-03] MEDS: ALBUTEROL 2.5 MG/3 ML NEB SOL NEB SCH ×3 (02:25→15:04)
[2020-11-03 04:21] LABS: Absolute Lymphocytes (CBC) 0.4 K/uL (0.7-4.9); Basophils % 0.4 % (0-1.3); Hematocrit 27.9 % (39.6-49.0); Lymphocytes % 5.3 % (15.3-44.8); RBC Red Blood Cell Count 3.61 M/uL (4.33-5.43)
[2020-11-03 04:48] LABS: ALT/SGPT 25 U/L (12-78); AST/SGOT 12 U/L (15-37); Albumin 2.5 g/dL (3.4-5.0); Alkaline Phosphatase 79 U/L (45-117); BUN Blood Urea Nitrogen 22 mg/dL (7-18); Bicarbonate 32 mmol/L (21-32); Bilirubin Total 0.4 mg/dL (0.2-1.0); Glucose Level 121 mg/dL (74-106); Magnesium 1.6 mg/dL (1.8-2.4); Potassium 3.5 mmol/L (3.5-5.1); Protein, Total 6.4 g/dL (6.4-8.2); Sodium Level 140 mmol/L (136-145)
[2020-11-03] MEDS: INSULIN -REGULAR HUMAN 50 UNIT/0.5 ML ML SQ SCH ×3 (07:30→16:30)
[2020-11-03] MEDS: Tacrolimus [Prograf] 1 MG Capsule PO SCH (09:00)
[2020-11-03] MEDS: SOD FERRIC GLUC COMPLX/SUCROSE 250 MG in NA CHLORIDE 0.9% 250 ML IV SCH (09:00)
[2020-11-03] MEDS: PANTOPRAZOLE 40MG TABLET PO SCH ×2 (09:49→18:06)
[2020-11-03] MEDS: levoFLOXacin 750 MG TAB PO SCH (09:49)
[2020-11-03] MEDS: APIXABAN 2.5 MG TABLET PO SCH (09:49)
[2020-11-03] MEDS: DULOXETINE 30 MG CAP PO SCH (09:50)
[2020-11-03] MEDS: DIGOXIN 0.125 MG TABLET PO SCH (09:50)
[2020-11-03] MEDS: MONTELUKAST 10 MG TAB PO SCH (09:50)
[2020-11-03] MEDS: FUROSEMIDE 40 MG TABLET PO SCH ×2 (09:50→18:06)
[2020-11-03] MEDS: allopurinoL 100 MG TAB PO SCH (09:51)
[2020-11-03] MEDS: PRIMIDONE 50 MG TAB PO SCH ×2 (09:55→15:25)
[2020-11-03] MEDS: LABETALOL HCL 100 MG TAB PO SCH (09:55)
[2020-11-03] MEDS: SPIRONOLACTONE 25 MG TABLET PO SCH (10:03)
[2020-11-03] MEDS: ROSUVASTATIN 10 MG TAB PO SCH (10:03)
[2020-11-03] MEDS: predniSONE 5 MG TAB PO SCH (10:03)
[2020-11-03] MEDS: CLOPIDOGREL 75 MG TABLET PO SCH (10:18)
[2020-11-03 11:44] VITALS: O2SAT 97
[2020-11-03 12:49] VITALS: BP 154/66; TEMP 97.7
--- NOTE | 2020-11-03 15:50 | P.DS ---
Admission Date: 10/29/20 Discharge Date: 11/03/20 Disposition: DC HOME/HOME HEALTH CARE Discharge Condition: FAIR Reason for Admission: Pneumonia Brief History of Present Illness: 75-year-old gentleman with a history of chronic diastolic heart failure, aortic stenosis status post TAVR, coronary artery disease status post stent, chronic atrial fibrillation, status post which concludes she denies pain on anticoagulation, history of chronic COPD, diabetes mellitus type 2, hypertension, history of renal transplant on immunosuppressive medications, hyperlipidemia, obstructive sleep apnea and GERD presented to the emergency department with a complaint of shortness of breath. In the ED patient noted to have white cell count of 28,000, hemoglobin 9.4 elevated CRP, troponin negative, CT chest showed possible lingular pneumonia and mild bilateral lower lobe. Chest x-ray demonstrated mild left and mild right pulmonary opacities likely representing pneumonia. Patient was hospitalized for further management Hospital Course: Hypoxic respiratory failure secondary to bilateral pneumonia: Patient treated with broad-spectrum antibiotics- meropenem/vancomycin and later transition to oral Levaquin. Patient discharged with 5 days of oral Levaquin to complete 10 days of treatment. Blood cultures: No growth to date. Did Incentive spirometry. CT abdomen pelvis negative for any acute intra-abdominal findings. Anemia: Iron deficiency anemia Hemoglobin was stable throughout the hospital stay Chronic diastolic congestive heart failure: Possible decompensation contributing to shortness of breath. Patient treated with oral Lasix. Aortic stenosis status post TAVR: Stable, patient on Eliquis 2.5 mg p.o. twice daily, Plavix 75 mg p.o. daily, this will continue until discontinued by his cardiology after confirmed watchman is functioning appropriately. CAD status post recent stent to the LAD: Stable. Atrial fibrillation on chronic anticoagulation therapy status post watchman procedure August 2020: Continue with Eliquis 2.5 p.o. twice daily, Plavix 75 p.o. daily. Heart rate was stable and rate controlled. Renal transplant 2010: Renal function stable at this time, patient had transplant at [facility]. Continued transplant medications during the hospital stay. Chronic COPD: No acute COPD component at this time. Put on bronchodilators. Diabetes mellitus type 2: A [facility] Accu-Chek, sliding scale insulin therapy. Hyperlipidemia: continued home medication GERD: Continued home medication. Vital Signs/Physical Exam: Temp Pulse Resp BP Pulse Ox 97.7 F 84 18 154/66 H 92 11/03/20 12:00 11/03/20 12:00 11/03/20 12:00 11/03/20 12:00 11/03/20 12:00 General: Alert, In no apparent distress, Oriented x3 HEENT: Mucous membr. moist/pink Neck: JVD not distended Respiratory: Normal air movement, Crackles/rales (Bibasilar) Cardiovascular: No edema Gastrointestinal: Soft and benign, Non-distended Musculoskeletal: No swelling Integumentary: Other (Bilateral lower extremity venous stasis dermatitis.) Neurological: Other (No focal motor deficit.) Laboratory Data at Discharge: WBC 8.40 K/uL (4.3-10.9) D 11/03/20 04:10 Hgb 9.0 g/dL (13.6-17.9) L 11/03/20 04:10 Hct 27.9 % (39.6-49.0) L 11/03/20 04:10 Plt Count 163 K/uL (152-406) 11/03/20 04:10 PT 15.3 SECONDS (9.5-12.5) H 10/29/20 19:47 INR 1.33 10/29/20 19:47 APTT 26.6 SECONDS (24.3-36.9) 10/29/20 19:47 Sodium 140 mmol/L (136-145) 11/03/20 04:10 Potassium 3.5 mmol/L (3.5-5.1) 11/03/20 04:10 BUN 22 mg/dL (7-18) H 11/03/20 04:10 Creatinine 0.60 mg/dL (0.55-1.3) 11/03/20 04:10 Glucose 121 mg/dL (74-106) H 11/03/20 04:10 Magnesium 1.6 mg/dL (1.8-2.4) L 11/03/20 04:10 Total Bilirubin 0.4 mg/dL (0.2-1.0) 11/03/20 04:10 AST 12 U/L (15-37) L 11/03/20 04:10 ALT 25 U/L (12-78) 11/03/20 04:10 Alkaline Phosphatase 79 U/L (45-117) 11/03/20 04:10 Triglycerides 96 mg/dL (<150) 10/30/20 03:20 Cholesterol 113 mg/dL (<200) 10/30/20 03:20 HDL Cholesterol 52 mg/dL (40-60) 10/30/20 03:20 Cholesterol/HDL Ratio 2.17 10/30/20 03:20 Lipase 33 U/L (73-393) L 10/29/20 19:47 Home Medications: Allopurinol 100 mg PO BID 07/19/20 Apixaban [Eliquis] 5 mg PO BID 07/19/20 Diclofenac Sodium [Voltaren] 1 g TOP TIDP PRN 07/19/20 Digoxin [Lanoxin*] 0.125 mg PO DAILY 07/19/20 Duloxetine HCl [Cymbalta] 30 mg PO DAILY 07/19/20 Furosemide [Lasix*] 40 mg PO BIDWM 07/19/20 Labetalol HCl [Trandate] 200 mg PO BID 07/19/20 Montelukast [Singulair*] 10 mg PO DAILY 07/19/20 Pantoprazole Sodium [Protonix] 40 mg PO BID 07/19/20 Potassium Oral Tab [Klor-Con 10 mEq Tab*] 10 meq PO DAILY 07/19/20 Primidone 50 mg PO TID 07/19/20 Rosuvastatin [Crestor*] 10 mg PO DAILY 07/19/20 Spironolactone 50 mg PO DAILY 07/19/20 Tacrolimus [Prograf] 1 mg PO BID 07/19/20 mycophenolate mofetiL [Mycophenolate Mofetil] 1,000 mg PO BID 07/19/20 predniSONE [Prednisone*] 5 mg PO DAILY 07/19/20 Clopidogrel Bisulfate [Plavix*] 75 mg PO DAILY 10/30/20 Hydrocodone Bit/Acetaminophen [Hydrocodon-Acetaminoph 7.5-325] 1 each PO TID PRN 10/30/20 Trazodone [Desyrel*] 50 mg PO BEDTIME 10/30/20 Albuterol Neb [Proventil 0.083% Neb Soln] 2.5 mg NEB [id number] #120 amp 11/03/20 Benzonatate [Tessalon Perle*] 100 mg PO TID PRN #30 cap 11/03/20 Ipratropium Neb [Atrovent*] 0.5 mg NEB [id number] #120 amp 11/03/20 Lactobacillus Acidophilus [Acidophilus Lactobacilli] 1 each PO TID #90 capsule 11/03/20 levoFLOXacin [Levaquin*] 750 mg PO DAILY #5 tab 11/03/20 New Medications: Ipratropium Neb [Atrovent*] 0.5 mg NEB [id number] #120 amp Albuterol Neb [Proventil 0.083% Neb Soln] 2.5 mg NEB [id number] #120 amp Lactobacillus Acidophilus [Acidophilus Lactobacilli] 1 each PO TID #90 capsule levoFLOXacin [Levaquin*] 750 mg PO DAILY #5 tab Benzonatate [Tessalon Perle*] 100 mg PO TID PRN #30 cap PRN Reason: Cough Diet: AHA Activity: Fall precautions Followup: Jimmy Almendarez MD [Primary Care Provider] - 1 Week Time spent managing pt's care (in minutes): 42
== END 2020-11-03 18:26 | disposition home health service (06) | DRG 190 ==
LOC: ER 17:39 → ERHOLD 22:04 → 2ND 10-30 16:58
PROVIDERS: ADMIT Hospitalist; ATTEND Hospitalist
DX: J44.0 Chronic obstructive pulmonary disease with (acute) lower respiratory infection (principal); J18.9 Pneumonia, unspecified organism; J96.01 Acute respiratory failure with hypoxia; I50.33 Acute on chronic diastolic (congestive) heart failure; I48.20 Chronic atrial fibrillation, unspecified; Z94.0 Kidney transplant status; D50.9 Iron deficiency anemia, unspecified; I11.0 Hypertensive heart disease with heart failure; I25.10 Atherosclerotic heart disease of native coronary artery without angina pectoris; E78.5 Hyperlipidemia, unspecified; E11.9 Type 2 diabetes mellitus without complications; K21.9 Gastro-esophageal reflux disease without esophagitis; I87.2 Venous insufficiency (chronic) (peripheral); G47.33 Obstructive sleep apnea (adult) (pediatric); M10.9 Gout, unspecified; G25.81 Restless legs syndrome; Z79.01 Long term (current) use of anticoagulants; Z95.2 Presence of prosthetic heart valve; Z95.5 Presence of coronary angioplasty implant and graft; Z96.651 Presence of right artificial knee joint; Z88.0 Allergy status to penicillin; Z20.822 Contact with and (suspected) exposure to COVID-19
CPT/HCPCS: 36415; 71045; 74176; 76377; 80048; 80053; 80061; 80076; 80202; 81003; 81015; 82728; 82947; 83540; 83605; 83690; 83735; 83880; 84145; 84439; 84443; 84466; 84484; 85025; 85610; 85730; 86140; 87040; 93306; 94010; 94640; 97116; 97161; 97530; 99284; J2185; J2270; J2405; J2916; J3370; J3475; J7040; J7050; J7512; U0003

== ENCOUNTER 2021-02-06 09:01 | Day surgery (SDC) | payer OTHER ==
[2021-02-02 10:06] LABS: Hematocrit 34.3 % (39.6-49.0); RBC Red Blood Cell Count 3.98 M/uL (4.33-5.43)
[2021-02-02 10:15] LABS: ALT/SGPT 17 U/L (12-78); AST/SGOT 11 U/L (15-37); Albumin 3.5 g/dL (3.4-5.0); Alkaline Phosphatase 62 U/L (45-117); BUN Blood Urea Nitrogen 30 mg/dL (7-18); Bicarbonate 25 mmol/L (21-32); Bilirubin Total 0.5 mg/dL (0.2-1.0); Glucose Level 124 mg/dL (74-106); HDL Cholesterol 60 mg/dL (40-60); LDL, Direct 70 mg/dL (100-129); Potassium 4.2 mmol/L (3.5-5.1); Protein, Total 6.9 g/dL (6.4-8.2); Sodium Level 139 mmol/L (136-145); Uric Acid 6.7 mg/dL (3.5-7.2)
[2021-02-02 11:09] LABS: Blood Morphology Comment NOT SEEN (NOT SEEN); Platelet Estimate DECR; Platelets, Giant PRESENT
[2021-02-06] MEDS ORDERED: propofoL 200 MG/20 ML VIAL IV ONE ×2 (09:09→10:19)
[2021-02-06] MEDS ORDERED: KETOROLAC 30 MG/ML INJ ONE (09:09)
[2021-02-06] MEDS ORDERED: FENTANYL CITR 100 MCG/2 ML ONE ×2 (09:09→10:19)
[2021-02-06] MEDS ORDERED: ONDANSETRON 4 MG/2 ML VIAL ONE (09:10)
[2021-02-06] MEDS ORDERED: dexAMETHasone 4 MG/ML VIAL ONE (09:10)
[2021-02-06] MEDS ORDERED: LIDOCAINE 1% MPF 2 ML AMPULE ONE (09:10)
[2021-02-06] MEDS ORDERED: NA CHLORIDE 0.9% 500 ML ONE (09:17)
[2021-02-06] MEDS ORDERED: LIDOCAINE 1% MPF 5 ML VIAL ONE (10:19)
[2021-02-06] MEDS ORDERED: BUPIVACAINE 0.5% Inj,MDV 50 mL VIAL ONE (10:32)
[2021-02-06] MEDS ORDERED: ACETAMINOPHEN 500 MG TAB ONE (10:42)
[2021-02-06] MEDS ORDERED: CIPROFLOXACIN 400mg IV 400 MG/200 ML BAG IV ONE (10:43)
--- NOTE | 2021-02-06 11:42 | P.BOP ---
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 Findings: sq cell carcinoma. Gross margins free of tumor by Dr Swain Anesthesia: General Complications: None Transferred to: Recovery Room Condition: Good
[2021-02-06 13:08] VITALS: BP 164/73; TEMP 97.4; O2SAT 96
--- NOTE | 2021-02-07 11:57 | OP ---
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 Postoperative Diagnosis: Right forearm squamous cell carcinoma. Procedure: Wide excision of right forearm squamous cell carcinoma of 4 x 3 cm. Specimen: Squamous cell carcinoma, gross margin free of tumor per Dr. Swain. Anesthesia: MAC plus local. Indication: This is a case of a 76-year-old patient diagnosed with squamous cell carcinoma, multiple medical problems including cardiac disease. We get a consent to at least do removal of cancer out o f this area. Benefits and risks of excision fully explained which include, but not limited to infect ion, bleeding, damage to adjacent structures as complication, recurrence, ID, and even . He als o understands this may not relieve his symptoms. He might need more than one surgical intervention. He understood, signed a consent. Due to the large size of his cancer, we might not be able to close this and we might have to leave it to close by secondary intention and eventually put a skin graft o r skin substitute over that area. They understood and also the family understood. Description Of Procedure: The area of concern was marked by me and the patient in the holding room. The patient brought to the operating room and placed in supine position. Anesthesia was done withou t complication. The right forearm was prepped and draped in sterile fashion. We trying to leave at least 1 to 2 cm of gross negative margins and when we did that, we proceeded to use a knife to remove the area all the way down to fatty tissue sent to the pathologist. Due to the size of it, they just did a gross examination of the area and they found to have gross negative margins. Some more evalua tion will be done when cytology is done and normal labs. The area was irrigated. Due to the magnitu de of the size of it, we were not able to approximate this. We put 2 stitches in 1 area that was erika rowed. The rest was opened, so basically 95% is left to close by secondary intention. The patient m ay need a skin graft. Hemostasis obtained. Area was irrigated and the area was covered with wet-to- dry dressing. The patient tolerated the procedure well. The patient sent to recovery in stable cond ition. Diagnosis: Right forearm squamous cell carcinoma. Procedure: Wide excision of right forearm squamous for carcinoma, 4 x 3 cm. Disposition: Home. Activity: As tolerated, no heavy lifting. Plan: Follow up in my office in 1 week. Call for appointment [phone]. Wet-to-dry dressing. The p brendon was advised to come to the [facility], so we can assess with a wet-to-dry dressing a nd set him up for most likely a skin substitute since it will be difficult to get the patient back ag ain to do a surgery due to the cardiac clearance, but if we can use skin substitute in the meantime a nd closed this without having to do a skin graft will be nice. Right now, skin graft, the base is no t good enough to be able to sustain as skin graft and we do not want open another area unless we know for sure it is going to close or going to be well utilized. We will see the patient in the [facility]. LANIE/TALIA Voice ID: [id number] Report ID: [id number]
== END 2021-02-06 13:00 | disposition home or self-care (01) ==
LOC: OR 09:01
PROVIDERS: ATTEND Surgery
PROC: 0JBG0ZZ Excision of Right Lower Arm Subcutaneous Tissue and Fascia, Open Approach (ICD-10-PCS; principal; 2021-02-06 10:30)
DX: C76.41 Malignant neoplasm of right upper limb (principal); Z20.822 Contact with and (suspected) exposure to COVID-19
CPT/HCPCS: 85025; 36415; 83721; 83735; 80061; 82947 ×2; 84550; 88305; 84443; 83036; 80053; 11604; U0002; J2704; J3010; J7040; J2405; J0744; J1100

== ENCOUNTER 2021-02-06 20:39 | Emergency (ER) | payer OTHER ==
--- NOTE | 2021-02-06 21:03 | ER ---
Nurse's Notes [facility] Name: Yunior Lewis Age: 76 yrs Sex: Male : 1945 Arrival Date: 02/06/2021 Time: 20:41 Bed 5 Private MD: Diagnosis: Open wound right forearm with bleeding Presentation: 02/06 20:45 Chief complaint: EMS states: they were toned out for report of pt with post surgical bb bleeding. Coronavirus screen: At this time, the client does not indicate any symptoms associated with coronavirus-19. Ebola Screen: No symptoms or risks identified at this time. Initial Sepsis Screen: Does the patient meet any 2 criteria? No. Patient's initial sepsis screen is negative. Does the patient have a suspected source of infection? No. Patient's initial sepsis screen is negative. Risk Assessment: Do you want to hurt yourself or someone else? Patient reports no desire to harm self or others. Onset of symptoms was February 06, 2021. 20:45 Method Of Arrival: EMS: [facility] bb 20:45 Acuity: JAQUAN 4 bb Historical: - Allergies: 20:47 Demerol; bb 20:47 NSAIDS; bb 20:47 PENICILLINS; bb 20:47 Warfarin; bb - Home Meds: 21:16 allopurinol 100 mg Oral tab 1 tab 2 times per day [Active]; cholestyramine (bulk) lp1 miscellaneous powd daily [Active]; digoxin 125 mcg Oral tab 1 tab once daily [Active]; duloxetine 30 mg Oral cpDR 1 cap once daily [Active]; Eliquis 5 mg Oral tab 1 tab 2 times per day [Active]; furosemide 40 mg Oral tab 1 tab 2 times per day [Active]; hydrocodone-acetaminophen 7.5-325 mg Oral tab 1 tab every 4 hours [Active]; ipratropium bromide 0.02 % inhalation soln [Active]; Klor-Con 10 10 mEq Oral TbER 1 tab once daily [Active]; labetalol 200 mg Oral tab 1 tab 2 times per day [Active]; montelukast 10 mg Oral tab 1 tab once daily [Active]; mycophenolate mofetil 500 mg Oral tab 2 tabs 2 times per day [Active]; Novolin 70/30 Innolet Sub-Q 70-30 unit/mL [Active]; pantoprazole 40 mg Oral TbEC 1 tab once daily [Active]; prednisone 5 mg Oral tab 1 tab once daily [Active]; primidone 50 mg Oral tab 1 tabs 3 times per day [Active]; Restasis 0.05 % ophthalmic dpet 1 drop 2 times per day [Active]; rosuvastatin 10 mg Oral tab 1 tab once daily [Active]; spironolactone 50 mg Oral tab 1 tab once daily [Active]; tacrolimus 1 mg Oral cap every 12 hours [Active]; TRELEGY Ellipta 100mcg fluticasone furate, 62.5mcg umeclidinium \T\ 25mcg 1 puff daily [Active]; Ventolin Rotahaler/Rotacaps 90 mcg Inhl [Active]; Zioptan (PF) 0.0015 % ophthalmic dpet 1 drop once daily [Active]; - PMHx: 21:16 CHF; COPD; Diabetes - IDDM; gastritis; Heart Murmur; Hyperlipidemia; Hypertension; lp1 Sleep Apnea; - Immunization history:: Adult Immunizations up to date, Client reports receiving the 2nd dose of the CovPubNub vaccine, [employer]. - Social history:: Smoking status: unknown. Screenin:16 Abuse screen: Denies threats or abuse. Denies injuries from another. Nutritional lp1 screening: No deficits noted. Tuberculosis screening: No symptoms or risk factors identified. Fall Risk None identified. Assessment: 21:00 General: Appears in no apparent distress. Behavior is calm, cooperative. Pain: lp1 Complains of pain in dorsal aspect of right forearm Pain currently is 2 out of 10 on a pain scale. Quality of pain is described as aching. Neuro: Level of Consciousness is awake, alert, obeys commands, Oriented to person, place, time, situation, Intact. Cardiovascular: Capillary refill < 3 seconds in bilateral fingers Patient's skin is warm and dry. Respiratory: Respiratory effort is even, unlabored. Derm: Skin is pink, warm \T\ dry. Wound noted Other: post surgical site to right forearm, large area of skin open, fat exposed, small amount of continued bleeding to edge of wound. Musculoskeletal: Circulation, motion, and sensation intact. 21:29 Reassessment: Patient appears in no apparent distress at this time. No changes from vg1 previously documented assessment. Patient and/or family updated on plan of care and expected duration. Pain level reassessed. Patient is alert, oriented x 3, equal unlabored respirations, skin warm/dry/pink. wound cleaned and dressed by Lorenzo COOMBS. Vital Signs: 20:45 BP 159 / 91; Pulse 67; Resp 16 S; Temp 98.2(O); Pulse Ox 96% on R/A; Weight 96.62 kg bb (R); Height 5 ft. 11 in. (180.34 cm) (R); Pain 0/10; 20:45 Body Mass Index 29.71 (96.62 kg, 180.34 cm) ED Course: 20:41 Patient arrived in ED. mw2 20:42 Naty Ramos is Primary Nurse. tw5 20:42 Deonte Ventura PA is PHCP. jr8 20:42 Cooper Loving MD is Attending Physician. jr8 20:47 Triage completed. bb 20:47 Arm band placed on Patient placed in an exam room, on a stretcher, on pulse oximetry. bb 21:16 Patient has correct armband on for positive identification. Placed in gown. lp1 21:16 No provider procedures requiring assistance completed. Patient did not have IV access lp1 during this emergency room visit. Administered Medications: No medications were administered Outcome: 21:02 Discharge ordered by . jr8 21:30 Discharged to home via wheelchair, with family. vg1 21:30 Condition: good 21:30 Discharge instructions given to patient, family, Instructed on discharge instructions, follow up and referral plans. Demonstrated understanding of instructions, follow-up care. 21:30 Patient left the ED. vg1 Signatures: Aleisha Belcher, RN RN bb Genoveva Acuna, RN RN lp1 Deonte Ventura PA PA jr8 Lilian James mw2 Jane Gonzalez RN RN vg1 Naty Ramos tw5
[2021-02-06 21:35] VITALS: BP 159/91; TEMP 98.2; O2SAT 96
--- NOTE | 2021-02-07 21:31 | EDPHYS ---
Physician Documentation [facility] Name: Yunior Lewis Age: 76 yrs Sex: Male : 1945 Arrival Date: 02/06/2021 Time: 20:41 Bed 5 Private MD: DEVYN Physician Cooper Loving HPI: 02/07 01:00 This 76 yrs old Male presents to ER via EMS with complaints of Postsurgical bleeding. jr8 01:00 This is a 76-year-old male patient that presented to the emergency room after having jr8 surgical procedure for removal of skin cancer to his right forearm. Patient stated that he continues to have mild bleeding to the surgical site. Denies any other symptoms at this time. Historical: - Allergies: 02/06 20:47 Demerol; bb 20:47 NSAIDS; bb 20:47 PENICILLINS; bb 20:47 Warfarin; bb - Home Meds: 21:16 allopurinol 100 mg Oral tab 1 tab 2 times per day [Active]; cholestyramine (bulk) lp1 miscellaneous powd daily [Active]; digoxin 125 mcg Oral tab 1 tab once daily [Active]; duloxetine 30 mg Oral cpDR 1 cap once daily [Active]; Eliquis 5 mg Oral tab 1 tab 2 times per day [Active]; furosemide 40 mg Oral tab 1 tab 2 times per day [Active]; hydrocodone-acetaminophen 7.5-325 mg Oral tab 1 tab every 4 hours [Active]; ipratropium bromide 0.02 % inhalation soln [Active]; Klor-Con 10 10 mEq Oral TbER 1 tab once daily [Active]; labetalol 200 mg Oral tab 1 tab 2 times per day [Active]; montelukast 10 mg Oral tab 1 tab once daily [Active]; mycophenolate mofetil 500 mg Oral tab 2 tabs 2 times per day [Active]; Novolin 70/30 Innolet Sub-Q 70-30 unit/mL [Active]; pantoprazole 40 mg Oral TbEC 1 tab once daily [Active]; prednisone 5 mg Oral tab 1 tab once daily [Active]; primidone 50 mg Oral tab 1 tabs 3 times per day [Active]; Restasis 0.05 % ophthalmic dpet 1 drop 2 times per day [Active]; rosuvastatin 10 mg Oral tab 1 tab once daily [Active]; spironolactone 50 mg Oral tab 1 tab once daily [Active]; tacrolimus 1 mg Oral cap every 12 hours [Active]; TRELEGY Ellipta 100mcg fluticasone furate, 62.5mcg umeclidinium \T\ 25mcg 1 puff daily [Active]; Ventolin Rotahaler/Rotacaps 90 mcg Inhl [Active]; Zioptan (PF) 0.0015 % ophthalmic dpet 1 drop once daily [Active]; - PMHx: 21:16 CHF; COPD; Diabetes - IDDM; gastritis; Heart Murmur; Hyperlipidemia; Hypertension; lp1 Sleep Apnea; - Immunization history:: Adult Immunizations up to date, Client reports receiving the 2nd dose of the Covid vaccine, [employer]. - Social history:: Smoking status: unknown. ROS: 02/07 01:00 Eyes: Negative for injury, pain, redness, and discharge, ENT: Negative for injury, jr8 pain, and discharge, Neck: Negative for injury, pain, and swelling, Cardiovascular: Negative for chest pain, palpitations, and edema, Respiratory: Negative for shortness of breath, cough, wheezing, and pleuritic chest pain, Abdomen/GI: Negative for abdominal pain, nausea, vomiting, diarrhea, and constipation, Back: Negative for injury and pain, MS/Extremity: Negative for injury and deformity, Neuro: Negative for headache, weakness, numbness, tingling, and seizure. Skin: Positive for Open wound right forearm. Exam: 01:00 Constitutional: This is a well developed, well nourished patient who is awake, alert, jr8 and in no acute distress. Cardiovascular: Regular rate and rhythm with a normal S1 and S2. No gallops, murmurs, or rubs. Normal PMI, no JVD. No pulse deficits. Respiratory: Lungs have equal breath sounds bilaterally, clear to auscultation and percussion. No rales, rhonchi or wheezes noted. No increased work of breathing, no retractions or nasal flaring. MS/ Extremity: Pulses equal, no cyanosis. Neurovascular intact. Full, normal range of motion. Neuro: Awake and alert, GCS 15, oriented to person, place, time, and situation. Motor strength 5/5 in all extremities. Sensory grossly intact. 01:00 Skin: Patient has approximately 7.5 cm open surgical wound to the subcutaneous tissue present to the dorsal right forearm. Mild bleeding noted to the medial right edge of the incisional site. Remainder of surgical wound unremarkable.. Vital Signs: 02/06 20:45 BP 159 / 91; Pulse 67; Resp 16 S; Temp 98.2(O); Pulse Ox 96% on R/A; Weight 96.62 kg bb (R); Height 5 ft. 11 in. (180.34 cm) (R); Pain 0/10; 20:45 Body Mass Index 29.71 (96.62 kg, 180.34 cm) bb MDM: 20:42 Patient medically screened. jr8 02/07 01:00 Data reviewed: vital signs, nurses notes, and as a result, I will discharge patient. jr8 Data interpreted: Pulse oximetry: on room air is 96 %. Interpretation: normal. Counseling: I had a detailed discussion with the patient and/or guardian regarding: the historical points, exam findings, and any diagnostic results supporting the discharge/admit diagnosis, the need for outpatient follow up, a general surgeon, to return to the emergency department if symptoms worsen or persist or if there are any questions or concerns that arise at home. ED course: Surgicel was placed along with pressure dressing to the surgical site. Bleeding controlled at this time. Explained to patient that he needs to keep it on for the next 24 hours and then can reevaluate with his surgeon. If it were to bleed through bandage to come back for further reevaluation. Patient good with this at this time.. Administered Medications: No medications were administered Disposition: 12:59 Co-signature as Attending Physician, Cooper Loving MD I agree with the assessment and marbella plan of care. Disposition Summary: 02/06/21 21:02 Discharge Ordered Location: Home jr8 Problem: new jr8 Symptoms: have improved jr8 Condition: Stable jr8 Diagnosis - Open wound right forearm with bleeding jr8 Followup: jr8 - With: Private Physician - When: 1 - 2 days - Reason: Wound Recheck, Recheck today's complaints, Continuance of care, Re-evaluation by your physician Forms: - Medication Reconciliation Form jr8 - Thank You Letter jr8 - Antibiotic Education jr8 - Prescription Opioid Use jr8 Signatures: Cooper Loving MD MD cha Ballard, Brenda, RN RN bb Genoveva Acuna RN RN lp1 Deonte Ventura PA PA jr8
== END 2021-02-06 21:30 | disposition home or self-care (01) ==
LOC: ER 20:39
DX: L76.22 Postprocedural hemorrhage of skin and subcutaneous tissue following other procedure (principal)
CPT/HCPCS: 99283

== ENCOUNTER 2021-02-07 06:08 | Emergency (ER) | payer OTHER ==
[2021-02-07] MEDS ORDERED: LIDOCAINE 1% W/EPI 1:100,000 MDV 20 ML VIAL ONE (06:13)
[2021-02-07] MEDS ORDERED: SILVER NITRATE 1 APPL TOP ONE (07:36)
--- NOTE | 2021-02-07 07:45 | ER ---
Nurse's Notes [facility] Name: Yunior Lewis Age: 76 yrs Sex: Male : 1945 Arrival Date: 02/07/2021 Time: 06:06 Bed 5 Private MD: Diagnosis: Bleeding from open wound, unspecified Presentation: 02/07 06:16 Chief complaint: Patient states: right arm bleeding . Previous repair ineffective. lp1 Coronavirus screen: At this time, the client does not indicate any symptoms associated with coronavirus-19. Ebola Screen: No symptoms or risks identified at this time. Initial Sepsis Screen: Does the patient meet any 2 criteria? No. Patient's initial sepsis screen is negative. Risk Assessment: Do you want to hurt yourself or someone else? Patient reports no desire to harm self or others. Onset of symptoms was February 07, 2021 at 05:10. 06:16 Method Of Arrival: EMS: [facility] 1 06:16 Acuity: JAQUAN 3 lp1 06:25 Initial Sepsis Screen: Does the patient have a suspected source of infection?. Initial lp1 Sepsis Screen:. Triage Assessment: 06:14 General: Appears distressed. Pain: Complains of pain in right arm. lp1 06:18 General: Behavior is cooperative, appropriate for age. lp1 Historical: - Allergies: 06:18 Demerol; lp1 06:18 NSAIDS; lp1 06:18 PENICILLINS; lp1 06:18 Warfarin; lp1 - Home Meds: 06:18 allopurinol 100 mg Oral tab 1 tab 2 times per day [Active]; cholestyramine (bulk) lp1 miscellaneous powd daily [Active]; digoxin 125 mcg Oral tab 1 tab once daily [Active]; duloxetine 30 mg Oral cpDR 1 cap once daily [Active]; Eliquis 5 mg Oral tab 1 tab 2 times per day [Active]; furosemide 40 mg Oral tab 1 tab 2 times per day [Active]; hydrocodone-acetaminophen 7.5-325 mg Oral tab 1 tab every 4 hours [Active]; ipratropium bromide 0.02 % inhalation soln [Active]; Klor-Con 10 10 mEq Oral TbER 1 tab once daily [Active]; labetalol 200 mg Oral tab 1 tab 2 times per day [Active]; montelukast 4 mg oral grpk [Active]; mycophenolate mofetil 500 mg Oral tab 2 tabs 2 times per day [Active]; Novolin 70/30 Innolet Sub-Q 70-30 unit/mL [Active]; pantoprazole 40 mg Oral TbEC 1 tab once daily [Active]; prednisone 5 mg Oral tab 1 tab once daily [Active]; primidone 50 mg Oral tab 1 tabs 3 times per day [Active]; Restasis 0.05 % ophthalmic dpet 1 drop 2 times per day [Active]; rosuvastatin 10 mg Oral tab 1 tab once daily [Active]; spironolactone 50 mg Oral tab 1 tab once daily [Active]; tacrolimus 1 mg Oral cap every 12 hours [Active]; TRELEGY Ellipta 100mcg fluticasone furate, 62.5mcg umeclidinium \T\ 25mcg 1 puff daily [Active]; Ventolin Rotahaler/Rotacaps 90 mcg Inhl [Active]; Zioptan (PF) 0.0015 % ophthalmic dpet 1 drop once daily [Active]; - PMHx: 06:18 CHF; COPD; Diabetes - IDDM; gastritis; Heart Murmur; Hyperlipidemia; Sleep Apnea; lp1 Hypertension; - Immunization history:: Adult Immunizations up to date. - Social history:: Smoking status: unknown. Screenin:22 Abuse screen: none. Nutritional screening: No deficits noted. Tuberculosis screening: lp1 No symptoms or risk factors identified. Fall Risk None identified. Assessment: 06:22 Reassessment: BIBA for right arm wound bleeding. The wound was repaired earlier with lp1 surgiseal. Large amounts of blood noted.. 08:18 Reassessment: Pressure dressing to right forearm, tolerated well. ll3 Vital Signs: 06:14 BP 134 / 81; Pulse 56; Resp 22; Temp 97.9; Pulse Ox 94% 0 lpm ; lp1 08:22 BP 164 / 84; Pulse 59; Resp 18; Pulse Ox 98% on R/A; ll3 ED Course: 06:06 Patient arrived in ED. mw2 06:12 Pawel Moran PA is PHCP. jmm 06:12 Cooper Loving MD is Attending Physician. jmm 06:13 Acuna, Genoveva, RN is Primary Nurse. lp1 06:14 Arm band placed on left wrist. lp1 06:18 Triage completed. lp1 06:22 Patient has correct armband on for positive identification. Placed in gown. Bed in low lp1 position. Side rails up X 1. 06:22 No provider procedures requiring assistance completed. Patient did not have IV access lp1 during this emergency room visit. 07:44 Randy Giordano MD is Referral Physician. [facility] 08:16 Dressings: Kerlix X 1; palmar aspect of right forearm non-adherent dressing x 1 palmar ll3 aspect of right forearm Tegaderm X 1; palmar aspect of right forearm Surgicele. Administered Medications: 06:28 Drug: Lidocaine (1 %) 20 ml Volume: 20 ml; Route: Infiltration; lp1 07:42 Follow up: Response: No adverse reaction ll3 07:35 Drug: Silver Nitrate Applicators 1 application {Note: administered by MALVIN Armas.} Route: ll3 Topical; Site: affected area; Outcome: 07:45 Discharge ordered by . [facility] 08:33 Discharged to home via wheelchair. ll3 08:33 Condition: stable 08:33 Discharge instructions given to patient, Instructed on discharge instructions, follow up and referral plans. 08:33 Patient left the ED. ll3 Signatures: Pawel Moran PA PA jmm Pena, Laura, RN RN lp1 Lilian James 2 Leanna Munson RN RN ll3
--- NOTE | 2021-02-07 07:45 | EDPHYS ---
Physician Documentation [facility] Name: Yunior Lewis Age: 76 yrs Sex: Male : 1945 Arrival Date: 02/07/2021 Time: 06:06 Bed 5 Private MD: DEVYN Physician Cooper Loving HPI: 02/07 07:41 This 76 yrs old Male presents to ER via EMS with complaints of 0628. jmm 07:41 The patient or guardian complains of bleeding. The complaints affect the palmar aspect jmm of right forearm. Onset: The symptoms/episode began/occurred gradually, 1 day(s) ago. Modifying factors: The symptoms are alleviated by nothing. the symptoms are aggravated by nothing. Is a 76-year-old male with a history of CHF, COPD status post a skin removal surgery presents emerged department for the second time in less than 24 hours for bleeding at the surgical site. Pressure dressing was initially applied with Surgicel which did momentarily stop the bleeding. Bleeding returned earlier this morning. Patient denies shortness of breath or weakness or dizziness.. Historical: - Allergies: 06:18 Demerol; lp1 06:18 NSAIDS; lp1 06:18 PENICILLINS; lp1 06:18 Warfarin; lp1 - Home Meds: 06:18 allopurinol 100 mg Oral tab 1 tab 2 times per day [Active]; cholestyramine (bulk) lp1 miscellaneous powd daily [Active]; digoxin 125 mcg Oral tab 1 tab once daily [Active]; duloxetine 30 mg Oral cpDR 1 cap once daily [Active]; Eliquis 5 mg Oral tab 1 tab 2 times per day [Active]; furosemide 40 mg Oral tab 1 tab 2 times per day [Active]; hydrocodone-acetaminophen 7.5-325 mg Oral tab 1 tab every 4 hours [Active]; ipratropium bromide 0.02 % inhalation soln [Active]; Klor-Con 10 10 mEq Oral TbER 1 tab once daily [Active]; labetalol 200 mg Oral tab 1 tab 2 times per day [Active]; montelukast 4 mg oral grpk [Active]; mycophenolate mofetil 500 mg Oral tab 2 tabs 2 times per day [Active]; Novolin 70/30 Innolet Sub-Q 70-30 unit/mL [Active]; pantoprazole 40 mg Oral TbEC 1 tab once daily [Active]; prednisone 5 mg Oral tab 1 tab once daily [Active]; primidone 50 mg Oral tab 1 tabs 3 times per day [Active]; Restasis 0.05 % ophthalmic dpet 1 drop 2 times per day [Active]; rosuvastatin 10 mg Oral tab 1 tab once daily [Active]; spironolactone 50 mg Oral tab 1 tab once daily [Active]; tacrolimus 1 mg Oral cap every 12 hours [Active]; TRELEGY Ellipta 100mcg fluticasone furate, 62.5mcg umeclidinium \T\ 25mcg 1 puff daily [Active]; Ventolin Rotahaler/Rotacaps 90 mcg Inhl [Active]; Zioptan (PF) 0.0015 % ophthalmic dpet 1 drop once daily [Active]; - PMHx: 06:18 CHF; COPD; Diabetes - IDDM; gastritis; Heart Murmur; Hyperlipidemia; Sleep Apnea; lp1 Hypertension; - Immunization history:: Adult Immunizations up to date. - Social history:: Smoking status: unknown. ROS: 07:41 Constitutional: Negative for fever, chills, and weight loss, Cardiovascular: Negative jmm for chest pain, palpitations, and edema, Respiratory: Negative for shortness of breath, cough, wheezing, and pleuritic chest pain. 07:41 Skin: Positive for Wound. 07:41 All other systems are negative. Exam: 07:41 Constitutional: This is a well developed, well nourished patient who is awake, alert, jmm and in no acute distress. Head/Face: atraumatic. Eyes: EOMI, no conjunctival erythema appreciated ENT: Moist Mucus Membranes Neck: Trachea midline, Supple Chest/axilla: Normal chest wall appearance and motion. Cardiovascular: Regular rate and rhythm. No edema appreciated Respiratory: Normal respirations, no respiratory distress appreciated Abdomen/GI: Non distended, soft Back: Normal ROM 07:41 Skin: Wound noted to the right forearm with mild bleeding around the edges. 07:41 Neuro: Orientation: is normal, Mentation: is normal, Memory: is normal. 07:41 Psych: Behavior/mood is pleasant, cooperative. Vital Signs: 06:14 BP 134 / 81; Pulse 56; Resp 22; Temp 97.9; Pulse Ox 94% 0 lpm ; lp1 08:22 BP 164 / 84; Pulse 59; Resp 18; Pulse Ox 98% on R/A; ll3 MDM: 06:29 Patient medically screened. [facility] 07:43 Data reviewed: vital signs, nurses notes. Counseling: I had a detailed discussion with darnell the patient and/or guardian regarding: the historical points, exam findings, and any diagnostic results supporting the discharge/admit diagnosis, the need for outpatient follow up, to return to the emergency department if symptoms worsen or persist or if there are any questions or concerns that arise at home. ED course: [id number] suture was applied to the main site of bleeding. Silver nitrate applied to the edges of the wound. Bleeding is stopped. Pressure dressing has been applied. 02/07 07:11 Order name: [facility] [place], [place]. Order: surgicele; Complete Time: 08:16 [facility] 02/07 07:12 Order name: wutabout. Order: presure dressing; Complete Time: 08:16 [facility] Administered Medications: 06:28 Drug: Lidocaine (1 %) 20 ml Volume: 20 ml; Route: Infiltration; lp1 07:42 Follow up: Response: No adverse reaction ll3 07:35 Drug: Silver Nitrate Applicators 1 application {Note: administered by PA. Pawel} Route: ll3 Topical; Site: affected area; Disposition: 12:58 Co-signature as Attending Physician, Cooper Loving MD I agree with the assessment and marbella plan of care. Disposition Summary: 02/07/21 07:45 Discharge Ordered Location: Home [facility] Condition: Stable [facility] Diagnosis - Bleeding from open wound, unspecified [facility] Followup: [facility] - With: Randy Giordano MD - When: 2 - 3 days - Reason: Recheck today's complaints, Continuance of care, Re-evaluation by your physician Discharge Instructions: - Discharge Summary Sheet [facility] - Wound Care, Adult jm Forms: - Medication Reconciliation Form [facility] - Thank You Letter [facility] - Antibiotic Education [facility] - Prescription Opioid Use [facility] Signatures: Cooper Loving MD MD cha Mickail, Joel, PA PA jmm Pena, Laura, RN RN lp1 Leanna Munson RN RN ll3
[2021-02-07 08:40] VITALS: TEMP 97.9
[2021-02-07 08:41] VITALS: BP 164/84; O2SAT 98
== END 2021-02-07 08:33 | disposition home or self-care (01) ==
LOC: ER 06:08
DX: L76.22 Postprocedural hemorrhage of skin and subcutaneous tissue following other procedure (principal)
CPT/HCPCS: 99283

== ENCOUNTER 2021-02-08 19:41 | Emergency (ER) | payer OTHER ==
--- NOTE | 2021-02-08 20:58 | EDPHYS ---
Physician Documentation [facility] Name: Yunior Lewis Age: 76 yrs Sex: Male : 1945 Arrival Date: 02/08/2021 Time: 19:48 Bed Treatment Private MD: ED Physician August Riggs HPI: 02/08 20:55 This 76 yrs old Male presents to ER via EMS with complaints of Post Surgical Bleeding. jr8 20:55 This is a 76-year-old male that has been seen a few times over the last few days for jr8 continual bleeding of his surgical site of the right forearm after having a skin cancer removed. Patient was seen by wound therapy today and had collagen placed on his arm. Patient stated that it started to reuse tonight and home health did not have the equipment to take care of it.. Historical: - Allergies: 20:02 Demerol; jh5 20:02 NSAIDS; [facility] 20:02 PENICILLINS; [facility] 20:02 Warfarin; 5 - PMHx: 20:02 CHF; Sleep Apnea; Hypertension; Hyperlipidemia; Heart Murmur; gastritis; Diabetes - 5 IDDM; COPD; - Immunization history:: Adult Immunizations up to date. - Social history:: Smoking status: Patient denies any tobacco usage or history of. ROS: 20:55 Eyes: Negative for injury, pain, redness, and discharge, ENT: Negative for injury, jr8 pain, and discharge, Neck: Negative for injury, pain, and swelling, Cardiovascular: Negative for chest pain, palpitations, and edema, Respiratory: Negative for shortness of breath, cough, wheezing, and pleuritic chest pain, Abdomen/GI: Negative for abdominal pain, nausea, vomiting, diarrhea, and constipation, Back: Negative for injury and pain, MS/Extremity: Negative for injury and deformity, Neuro: Negative for headache, weakness, numbness, tingling, and seizure. 20:55 Skin: Positive for Open wound right forearm. Exam: 20:55 Constitutional: This is a well developed, well nourished patient who is awake, alert, jr8 and in no acute distress. Cardiovascular: Regular rate and rhythm with a normal S1 and S2. No gallops, murmurs, or rubs. Normal PMI, no JVD. No pulse deficits. Respiratory: Lungs have equal breath sounds bilaterally, clear to auscultation and percussion. No rales, rhonchi or wheezes noted. No increased work of breathing, no retractions or nasal flaring. MS/ Extremity: Pulses equal, no cyanosis. Neurovascular intact. Full, normal range of motion. Neuro: Awake and alert, GCS 15, oriented to person, place, time, and situation. Cranial nerves II-XII grossly intact. Motor strength 5/5 in all extremities. Sensory grossly intact. 20:55 Skin: Patient has open surgical site wound down to the subcutaneous tissue present. Small oozing site at the 5 o'clock position of the wound noted. No other active bleeding sites noted.. Vital Signs: 19:57 BP 121 / 64; Pulse 71; Resp 22; Temp 97.1; Pulse Ox 100% ; Weight 96.62 kg; Height 5 jh5 ft. 11 in. (180.34 cm); Pain 4/10; 19:57 Body Mass Index 29.71 (96.62 kg, 180.34 cm) 5 MDM: 20:46 Patient medically screened. jr8 20:55 Data reviewed: vital signs, nurses notes, and as a result, I will discharge patient. jr8 Data interpreted: Pulse oximetry: on room air is 100 %. Interpretation: normal. Counseling: I had a detailed discussion with the patient and/or guardian regarding: the historical points, exam findings, and any diagnostic results supporting the discharge/admit diagnosis, the need for outpatient follow up, a general surgeon, to return to the emergency department if symptoms worsen or persist or if there are any questions or concerns that arise at home. ED course: I reapplied Surgicel to the bleeding area and then dressed it with a pressure dressing. Patient to follow-up with wound care tomorrow morning.. Administered Medications: No medications were administered Disposition: 02/09 19:43 Co-signature as Attending Physician, August Riggs MD I agree with the assessment and sp3 plan of care. Disposition Summary: 02/08/21 20:58 Discharge Ordered Location: Home jr8 Problem: new jr8 Symptoms: have improved jr8 Condition: Stable jr8 Diagnosis - Unspecified open wound of right forearm, sequela jr8 Followup: jr8 - With: Private Physician - When: Tomorrow - Reason: Wound Recheck, Recheck today's complaints, Continuance of care, Re-evaluation by your physician Forms: - Medication Reconciliation Form jr8 - Thank You Letter jr8 - Antibiotic Education jr8 - Prescription Opioid Use jr8 Signatures: Deonte Ventura PA PA jr8 Aguust Riggs MD MD sp3 Yesy Trotter RN RN jh5
--- NOTE | 2021-02-08 20:58 | ER ---
Nurse's Notes [facility] Name: Yunior Lewis Age: 76 yrs Sex: Male : 1945 Arrival Date: 02/08/2021 Time: 19:48 Bed Treatment Private MD: Diagnosis: Unspecified open wound of right forearm, sequela Presentation: 02/08 19:57 Chief complaint: Patient states: skin ca removal Saturday; came in Saturday night due to jh5 bleeding. Saturday woke up at 0430 due to profuse bleeding. came back Saturday, got more sutures here in [facility]. Went to wound care this am, saw surgeon but is now back here bleeding again. Coronavirus screen: Vaccine status: Patient reports being unvaccinated. Client denies travel out of the [place] in the last 14 days. Ebola Screen: Patient negative for fever greater than or equal to 101.5 degrees Fahrenheit, and additional compatible Ebola Virus Disease symptoms Patient denies exposure to infectious person. Patient denies travel to an Ebola-affected area in the 21 days before illness onset. Initial Sepsis Screen: Does the patient meet any 2 criteria? No. Patient's initial sepsis screen is negative. Does the patient have a suspected source of infection? No. Patient's initial sepsis screen is negative. Risk Assessment: Do you want to hurt yourself or someone else? Patient reports no desire to harm self or others. Onset of symptoms was February 07, 2021. 19:57 Method Of Arrival: EMS: [place] [id number] 19:57 Acuity: JAQUAN 3 jh5 Triage Assessment: 20:03 General: Appears in no apparent distress. comfortable, well groomed, well developed, jh5 well nourished, Behavior is calm, cooperative, appropriate for age, agitated. Pain: Complains of pain in right arm. Historical: - Allergies: 20:02 Demerol; 5 20:02 NSAIDS; 5 20:02 PENICILLINS; 5 20:02 Warfarin; 5 - PMHx: 20:02 CHF; Sleep Apnea; Hypertension; Hyperlipidemia; Heart Murmur; gastritis; Diabetes - 5 IDDM; COPD; - Immunization history:: Adult Immunizations up to date. - Social history:: Smoking status: Patient denies any tobacco usage or history of. Assessment: 21:19 Reassessment: Patient is alert, oriented x 3, equal unlabored respirations, skin bb warm/dry/pink. pt seen by this RN at discharge lilibeth wrap to right arm in place clean and dry. Pt verbalized understanding of and agrees to plan of care discharge instructions given pt assisted to exit via wheelchair by this RN. Vital Signs: 19:57 BP 121 / 64; Pulse 71; Resp 22; Temp 97.1; Pulse Ox 100% ; Weight 96.62 kg; Height 5 [facility] ft. 11 in. (180.34 cm); Pain 4/10; 19:57 Body Mass Index 29.71 (96.62 kg, 180.34 cm) [facility] ED Course: 19:48 Patient arrived in ED. ja2 20:02 Triage completed. 5 20:46 Deonte Ventura PA is PHCP. jr8 20:46 August Riggs MD is Attending Physician. 8 21:20 No provider procedures requiring assistance completed. Patient did not have IV access bb during this emergency room visit. Administered Medications: No medications were administered Outcome: 20:58 Discharge ordered by MD. jr8 21:20 Discharged to home via wheelchair, with family. bb 21:20 Condition: stable 21:20 Discharge instructions given to patient, Instructed on discharge instructions, follow up and referral plans. Demonstrated understanding of instructions, follow-up care. 21:21 Patient left the ED. bb Signatures: Aleisha Belcher RN RN Deonte Fields PA PA [facility] Yesy Thomas [facility] Yesy Trotter RN RN [facility]
[2021-02-08 21:28] VITALS: BP 121/64; TEMP 97.1; O2SAT 100
== END 2021-02-08 21:21 | disposition home or self-care (01) ==
LOC: ER 19:41
DX: S51.801S Unspecified open wound of right forearm, sequela (principal); T81.89XA Other complications of procedures, not elsewhere classified, initial encounter
CPT/HCPCS: 99283

== ENCOUNTER 2021-03-14 07:43 | Inpatient (IN) | payer OTHER ==
[2021-03-14] MEDS ORDERED: NA CHLORIDE 0.9% 500 ML ONE (08:43)
[2021-03-14 08:53] LABS: Absolute Lymphocytes (CBC) 0.4 K/uL (0.7-4.9); Hematocrit 33.3 % (39.6-49.0); MPV 8.8 fL (7.6-11.3)
--- NOTE | 2021-03-14 08:53 | RAD REPORT ---
EXAM DESCRIPTION: RAD - Chest Single View - 03/14/2021 8:41 am CLINICAL HISTORY: COUGH COMPARISON: Chest Single View dated 11/02/2020; Chest Single View dated 10/29/2020; Chest Single View da romain 07/21/2020; Chest Single View dated 07/18/2020; Stone Protocol dated 10/29/2020; Thorax Wo Con dated 07/18/2020 FINDINGS: Lines: None. Lungs: Right perihilar consolidation. Pleural: No significant pleural effusions or pneumothorax. Cardiac: Cardiomegaly. Aortic valve prosthesis. Bones: No acute fractures. Remote left-sided rib fractures. Other: IMPRESSION: Right perihilar consolidative process could reflect pneumonia. Recommend radiographic fo llow-up to ensure resolution. Underlying mass less likely given time course of the development (new s michele 11/02/2020).
[2021-03-14 08:55] LABS: Protime INR 1.15
[2021-03-14 09:25] LABS: ALT/SGPT 15 U/L (12-78); AST/SGOT 7 U/L (15-37); Albumin 3.2 g/dL (3.4-5.0); Alkaline Phosphatase 59 U/L (45-117); BUN Blood Urea Nitrogen 17 mg/dL (7-18); Bicarbonate 28 mmol/L (21-32); Bilirubin Direct 0.2 mg/dL (0-0.2); Bilirubin Total 0.6 mg/dL (0.2-1.0); Glucose Level 188 mg/dL (74-106); NT PRO-BNP 2487 pg/mL (<450); Protein, Total 6.6 g/dL (6.4-8.2); Sodium Level 139 mmol/L (136-145)
--- NOTE | 2021-03-14 09:39 | ER ---
Nurse's Notes [facility] Name: Yunior Lewis Age: 76 yrs Sex: Male : 1945 Arrival Date: 03/14/2021 Time: 07:48 Bed 6 Private MD: Diagnosis: Varicose veins of other specified sites-SCROTAL;Lobar pneumonia, unspecified organism;Elevated white blood cell count;Type 1 diabetes mellitus with hyperglycemia Presentation: 03/14 07:49 Chief complaint: Patient states: bruising on left arm and weakness. Coronavirus screen: ford Vaccine status: Patient reports receiving the 2nd dose of the covid vaccine. Ebola Screen: Patient denies travel to an Ebola-affected area in the 21 days before illness onset. Initial Sepsis Screen: Does the patient meet any 2 criteria? Yes Does the patient have a suspected source of infection? No. Patient's initial sepsis screen is negative. Risk Assessment: Do you want to hurt yourself or someone else? Patient reports no desire to harm self or others. Onset of symptoms was March 14, 2021. 07:49 Method Of Arrival: EMS: [facility] 07:49 Acuity: JAQUAN 3 ford Triage Assessment: 07:50 General: Appears in no apparent distress. Behavior is calm, cooperative. Pain: ford Complains of pain in left arm. Historical: - Allergies: 07:50 Demerol; ford 07:50 NSAIDS; ford 07:50 PENICILLINS; ford 07:50 Warfarin; ford - PMHx: 07:50 CHF; COPD; Diabetes - IDDM; gastritis; Heart Murmur; Hyperlipidemia; Hypertension; ford Sleep Apnea; - Immunization history:: Adult Immunizations up to date. - Social history:: Smoking status: Patient denies any tobacco usage or history of. - Family history:: not pertinent. Screenin:51 Abuse screen: Denies threats or abuse. Denies injuries from another. Nutritional ford screening: No deficits noted. Tuberculosis screening: No symptoms or risk factors identified. Fall Risk Secondary diagnosis (15 points) impaired mobility. Assessment: 07:51 Derm: Reports brusing on left arm. Musculoskeletal: Reports weakness in right arm, left ford arm, right leg and left leg. Vital Signs: 07:49 BP 151 / 70; Pulse 87; Resp 18; Temp 98.4; Pulse Ox 98% ; Weight 96.62 kg; Height 5 ft. ford 8 in. (172.72 cm); 08:52 BP 149 / 81; Pulse 83; Resp 18; Pulse Ox 96% on R/A; ford 09:40 BP 155 / 80; Pulse 80; Resp 18; Pulse Ox 96% on R/A; ford 07:49 Body Mass Index 32.39 (96.62 kg, 172.72 cm) ford ED Course: 07:48 Patient arrived in ED. ford 07:50 Triage completed. ford 07:50 Arm band placed on right wrist. ford 07:51 Cooper Loving MD is Attending Physician. marbella 07:51 Patient has correct armband on for positive identification. Bed in low position. Side ford rails up X 1. 07:51 No provider procedures requiring assistance completed. ford 08:30 Inserted saline lock: 20 gauge in right antecubital area, using aseptic technique. bp Blood collected. 08:35 Aaron Wylie, BRENDA is Primary Nurse. bp 08:41 XRAY Chest (1 view) In Process Unspecified. EDMS 09:39 Dandre Lopez MD is Referral Physician. marbella 09:44 Brayden August DO is Hospitalizing Provider. marbella 09:55 CT Chest, Abdomen, Pelvis - W/Contrast In Process Unspecified. EDMS 10:19 Blood Culture Adult (2) Sent. ford 10:19 Lactate Sent. ford 10:19 Procalcitonin Sent. ford 10:20 COVID-19/FLU A+B/RSV (Document "Date of Onset" if Symptomatic) Sent. ford 13:11 Patient admitted, IV remains in place. ford Administered Medications: 08:30 Drug: NS 0.9% 500 ml Route: IV; Rate: bolus; Site: right antecubital; bp 10:20 Drug: Flagyl (metroNIDAZOLE) 500 mg Volume: 100 ml; Route: IVPB; Rate: 200 ml/hr; ford Infused Over: 30 mins; Site: right antecubital; 11:54 Follow up: Response: No adverse reaction; IV Status: Completed infusion ford 11:54 Drug: levofloxacin 500 mg Volume: 100 ml; Route: IVPB; Infused Over: 60 mins; Site: ford right antecubital; Outcome: 09:39 Discharge ordered by . marbella 09:49 Decision to Hospitalize by Provider. marbella 13:10 Admitted to Med/surg accompanied by angel, room 215. ford 13:10 Condition: good 13:10 Instructed on the need for admit. 13:11 Patient left the ED. ford Signatures: Dispatcher [employer] Cooper Manrique MD MD cha Peltier, Brian, RN RN Libby Lemus RN RN ha
--- NOTE | 2021-03-14 09:40 | EDPHYS ---
Physician Documentation [facility] Name: Yunior Lewis Age: 76 yrs Sex: Male : 1945 Arrival Date: 03/14/2021 Time: 07:48 Bed 6 Private MD: ED Physician Cooper Loving HPI: 03/14 08:25 This 76 yrs old Male presents to ER via EMS with complaints of bleeding , marbella hemrrohiods vs scrotal. 08:25 scrotum bleeding. Onset: The symptoms/episode began/occurred just prior to arrival, marbella this morning. Severity of symptoms: At their worst the symptoms were mild in the emergency department the symptoms are unchanged. The patient has not experienced similar symptoms in the past. Historical: - Allergies: 07:50 Demerol; ford 07:50 NSAIDS; ford 07:50 PENICILLINS; ford 07:50 Warfarin; ford - PMHx: 07:50 CHF; COPD; Diabetes - IDDM; gastritis; Heart Murmur; Hyperlipidemia; Hypertension; ford Sleep Apnea; - Immunization history:: Adult Immunizations up to date. - Social history:: Smoking status: Patient denies any tobacco usage or history of. - Family history:: not pertinent. ROS: 08:25 Constitutional: Negative for fever, chills, and weight loss, Eyes: Negative for injury, marbella pain, redness, and discharge, ENT: Negative for injury, pain, and discharge, Neck: Negative for injury, pain, and swelling, Cardiovascular: Negative for chest pain, palpitations, and edema, Respiratory: Negative for shortness of breath, cough, wheezing, and pleuritic chest pain, Abdomen/GI: Negative for abdominal pain, nausea, vomiting, diarrhea, and constipation, Back: Negative for injury and pain, MS/Extremity: Negative for injury and deformity, Skin: Negative for injury, rash, and discoloration, Neuro: Negative for headache, weakness, numbness, tingling, and seizure, Psych: Negative for depression, anxiety, suicide ideation, homicidal ideation, and hallucinations, Allergy/Immunology: Negative for hives, rash, and allergies, Endocrine: Negative for neck swelling, polydipsia, polyuria, polyphagia, and marked weight changes, Hematologic/Lymphatic: Negative for swollen nodes, abnormal bleeding, and unusual bruising. 08:25 : Positive for scrotal varicosities. Exam: 08:25 Constitutional: This is a well developed, well nourished patient who is awake, alert, marbella and in no acute distress. Head/Face: Normocephalic, atraumatic. Eyes: Pupils equal round and reactive to light, extra-ocular motions intact. Lids and lashes normal. Conjunctiva and sclera are non-icteric and not injected. Cornea within normal limits. Periorbital areas with no swelling, redness, or edema. ENT: Nares patent. No nasal discharge, no septal abnormalities noted. Tympanic membranes are normal and external auditory canals are clear. Oropharynx with no redness, swelling, or masses, exudates, or evidence of obstruction, uvula midline. Mucous membranes moist. Neck: Trachea midline, no thyromegaly or masses palpated, and no cervical lymphadenopathy. Supple, full range of motion without nuchal rigidity, or vertebral point tenderness. No Meningismus. Chest/axilla: Normal chest wall appearance and motion. Nontender with no deformity. No lesions are appreciated. Cardiovascular: Regular rate and rhythm with a normal S1 and S2. No gallops, murmurs, or rubs. Normal PMI, no JVD. No pulse deficits. Respiratory: Lungs have equal breath sounds bilaterally, clear to auscultation and percussion. No rales, rhonchi or wheezes noted. No increased work of breathing, no retractions or nasal flaring. Abdomen/GI: Soft, non-tender, with normal bowel sounds. No distension or tympany. No guarding or rebound. No evidence of tenderness throughout. Back: No spinal tenderness. No costovertebral tenderness. Full range of motion. Skin: Warm, dry with normal turgor. Normal color with no rashes, no lesions, and no evidence of cellulitis. MS/ Extremity: Pulses equal, no cyanosis. Neurovascular intact. Full, normal range of motion. Neuro: Awake and alert, GCS 15, oriented to person, place, time, and situation. Cranial nerves II-XII grossly intact. Motor strength 5/5 in all extremities. Sensory grossly intact. Cerebellar exam normal. Normal gait. Psych: Awake, alert, with orientation to person, place and time. Behavior, mood, and affect are within normal limits. 08:25 : Male external genitalia: ulceration, of the left testicle and right testicle is present, that is small, Bladder: is normal, Sexual behavior: the patient is not sexually active. 08:34 Abdomen/GI: Inspection: abdomen appears normal, Bowel sounds: normal, Palpation: [facility] abdomen is soft and non-tender, Rectal exam: is unremarkable, Prostate: normal, rectal tone normal, Stool: guaiac negative, hemorrhoid(s), are not appreciated, mass, is not appreciated, swelling, is not appreciated, tenderness, is not appreciated, fecal impaction, is not appreciated, Liver: no appreciated palpable abnormalities, Hernia: not appreciated. 09:00 ECG was reviewed by the Attending Physician. [facility] Vital Signs: 07:49 BP 151 / 70; Pulse 87; Resp 18; Temp 98.4; Pulse Ox 98% ; Weight 96.62 kg; Height 5 ft. ford 8 in. (172.72 cm); 08:52 BP 149 / 81; Pulse 83; Resp 18; Pulse Ox 96% on R/A; ford 09:40 BP 155 / 80; Pulse 80; Resp 18; Pulse Ox 96% on R/A; ford 07:49 Body Mass Index 32.39 (96.62 kg, 172.72 cm) ford MDM: 07:52 Patient medically screened. [facility] 08:30 Data reviewed: vital signs, nurses notes, lab test result(s), EKG, radiologic studies, [facility] plain films. 03/14 08:19 Order name: Basic Metabolic Panel; Complete Time: 09:35 [facility] 03/14 08:19 Order name: CBC with Diff; Complete Time: 09:35 [facility] 03/14 08:19 Order name: LFT's; Complete Time: 09:35 [facility] 03/14 08:19 Order name: Magnesium; Complete Time: 09:35 [facility] 03/14 08:19 Order name: NT PRO-BNP; Complete Time: 09:35 [facility] 03/14 08:19 Order name: PT-INR; Complete Time: 09:35 [facility] 03/14 08:19 Order name: Troponin HS; Complete Time: 09:35 [facility] 03/14 08:19 Order name: XRAY Chest (1 view); Complete Time: 09:35 [facility] 03/14 09:38 Order name: COVID-19/FLU A+B/RSV (Document "Date of Onset" if Symptomatic) [facility] 03/14 09:38 Order name: Lactate [facility] 03/14 09:38 Order name: Procalcitonin [facility] 03/14 09:38 Order name: CT Chest, Abdomen, Pelvis - W/Contrast [facility] 03/14 09:38 Order name: Blood Culture Adult (2) [facility] 03/14 08:19 Order name: EKG; Complete Time: 08:20 [facility] 03/14 08:19 Order name: Cardiac monitoring; Complete Time: 08:36 [facility] 03/14 08:19 Order name: EKG - Nurse/Tech; Complete Time: 08:55 [facility] 03/14 08:19 Order name: IV Saline Lock; Complete Time: 08:36 [facility] 03/14 08:19 Order name: Labs collected and sent; Complete Time: 08:36 [facility] 03/14 08:19 Order name: O2 Per Protocol; Complete Time: 08:35 [facility] 03/14 08:19 Order name: O2 Sat Monitoring; Complete Time: 08:35 [facility] EC:00 Rate is 80 beats/min. Rhythm is regular. QRS [place] is Normal. LA interval is normal. QRS marbella interval is normal. QT interval is normal. No Q waves. T waves are Normal. No ST changes noted. Clinical impression: Atrial Fibrillation and No evidence of ischemia. Interpreted by me. Reviewed by me. Administered Medications: 08:30 Drug: NS 0.9% 500 ml Route: IV; Rate: bolus; Site: right antecubital; bp 10:20 Drug: Flagyl (metroNIDAZOLE) 500 mg Volume: 100 ml; Route: IVPB; Rate: 200 ml/hr; ford Infused Over: 30 mins; Site: right antecubital; 11:54 Follow up: Response: No adverse reaction; IV Status: Completed infusion 11:54 Drug: levofloxacin 500 mg Volume: 100 ml; Route: IVPB; Infused Over: 60 mins; Site: ford right antecubital; Disposition Summary: 03/14/21 09:49 Hospitalization Ordered Hospitalization Status: Inpatient Admission marbella Provider: Brayden August cha Location: Telemetry/MedSurg (Inpatient)(03/14/21 09:49) marbella Condition: Stable(03/14/21 09:49) marbella Problem: new(03/14/21 09:49) marbella Symptoms: have improved(03/14/21 09:49) marbella Bed/Room Type: Standard [facility] Room Assignment: 215(03/14/21 12:12) Diagnosis - Varicose veins of other specified sites - SCROTAL(03/14/21 09:49) marbella - Lobar pneumonia, unspecified organism marbella - Elevated white blood cell count marbella - Type 1 diabetes mellitus with hyperglycemia marbella Forms: - Medication Reconciliation Form marbella - SBAR form marbella Signatures: Dispatcher [employer] Swetha Díaz RN RN dw Anderson, Corey, MD MD cha Peltier, Brian, RN RN An-Libby Escamilla RN RN ford Corrections: (The following items were deleted from the chart) 09:39 09:39 Home marbella marbella 09:39 09:39 new marbella marbella 09:39 09:39 have improved marbella marbella 09:39 09:39 Stable marbella marbella 09:39 09:39 Varicose veins of other specified sites - scrotal, bleeding resolved marbella marbella 09:39 09:39 Chronic atrial fibrillation marbella marbella 12:12 09:49 marbella dw
[2021-03-14] MEDS ORDERED: METRONIDAZOLE 500mg IVPB 500 MG/100 ML BAG IV ONE (09:56)
[2021-03-14] MEDS ORDERED: Levofloxacin500mg IV 500 MG/100 ML BAG IV ONE (09:56)
--- NOTE | 2021-03-14 10:11 | RAD REPORT ---
EXAM DESCRIPTION: CTChest Abdomen Pelvis W Cont - 03/14/2021 10:02 am CLINICAL HISTORY: Abdominal distention;Cough COMPARISON: No comparisons TECHNIQUE: CT of the chest, abdomen, and pelvis was performed. All CT scans are performed using dose optimization technique as appropriate and may include automated exposure control or mA/KV adjustment according to patient size. FINDINGS: Thorax: Chest Wall: No abnormal mass Lungs: Consolidative airspace disease within the anterior aspect of the right upper lobe. Scattered s mall pulmonary nodules are noted bilaterally including several right lower lobe which are new from pr ior but likely benign. Pleura: Small right pleural effusion. Mona/Mediastinum: No lymphadenopathy. Aorta/Pulmonary Arteries: Aortic valve prosthesis. Prominent pulmonary artery is could reflect pulmon [place] artery hypertension. Heart: Cardiomegaly. Left main and three-vessel coronary artery disease. Abdomen/Pelvis: Liver: Hepatic steatosis. Biliary: Cholecystectomy Stomach: Surgical changes at the gastric antrum. Duodenum: No significant focal abnormality. Pancreas: Pancreatic atrophy. Spleen: No significant abnormality. Adrenal: No suspicious lesions. Kidney/ureter: Atrophic [place] kidneys. Bilateral renal lesions which are too small to characterize a re statistically benign. Right iliac fossa renal transplant. No renal calculi. No hydronephrosis. Retroperitoneum: No retroperitoneal adenopathy. Vascular: Atherosclerosis . Bowel: No significant focal abnormality. Peritoneum: No ascites or free air. Fat containing ventral hernias. Bladder: Grossly unremarkable. Reproductive: Scrotal edema. Benign fluid attenuation 3.4 cm structure located medially within the le ft leg of doubtful clinical significance. Bones: Right hip arthroplasty. No acute fractures seen. Remote left-sided rib fractures. Other: n/a IMPRESSION: 1. Right upper lobe consolidative process most likely representing pneumonia rather than inflammatory. Atypical infectious processes should be considered if immune suppressed. 2. No acute intra-abdominal abnormality.
[2021-03-14] MEDS ORDERED: HYDROCODONE/APAP 7.5/325 MG TAB PO PRN (10:38)
--- NOTE | 2021-03-14 10:47 | P.HP ---
Certification for Inpatient Patient admitted to: Observation With expected LOS: <2 Midnights Patient will require the following post-hospital care: Other (Home with home health) Practitioner: I am a practitioner with admitting privileges, knowledge of patient current condition, hospital course, and medical plan of care. Services: Services provided to patient in accordance with Admission requirements found in Title 42 Section 412.3 of the Code of Federal Regulations Patient History Date of Service: 03/14/21 Primary Care Provider: Dr. Almendarez; Pulm-Dr. Kitchen; Nephrology-[facility]; Card-Dr. Blackwell Reason for admission: Fatigue, scrotal bleeding History of Present Illness: 76-year-old male with multiple medical problems including CHF, COPD on steroids, history of kidney transplant on antirejection medication, atrial fibrillation, history of TAVR, history of watchman procedure, GERD, and essential tremor. Patient reported increased fatigue over the past several days. Last night he noted some bleeding to his scrotal region. Patient reports previously on anticoagulation therapy. This has been transitioned to aspirin and Plavix as the patient has a history of watchman procedure. Mild cough noted. Patient denies any chest pain, nausea vomiting, diarrhea. Patient came to the ER for further evaluation. In the ER patient was evaluated. Chest x-ray shows right perihilar pneumonia. White count 14, hemoglobin 10.3. Troponin unremarkable. Sodium 139, potassium 4.0. BUN of 17, creatinine 0.79 with a GFR greater than 90. Glucose 188. Scrotal region and rectal region was evaluated in the ER. No bleeding identified. Patient has varicosities to the scrotal region. Likely source of bleeding noted. No active bleeding noted at this time. Patient admitted for treatment. Allergies NSAIDS (Non-Steroidal Anti-Inflamma Allergy (Verified 02/02/21 09:06) stomach pains Penicillins Allergy (Verified 02/02/21 09:06) Itching/Hives/Rash aspirin Adverse Reaction (Verified 02/02/21 09:06) Rash warfarin Adverse Reaction (Verified 02/02/21 09:06) Rash Home medications list reviewed: Yes Home Medications: Allopurinol 100 mg PO BID 07/19/20 Diclofenac Sodium [Voltaren] 1 g TOP TIDP PRN 07/19/20 Digoxin [Lanoxin*] 0.125 mg PO DAILY 07/19/20 Duloxetine HCl [Cymbalta] 30 mg PO DAILY 07/19/20 Furosemide [Lasix*] 40 mg PO BIDWM 07/19/20 Labetalol HCl [Trandate] 200 mg PO BID 07/19/20 Montelukast [Singulair*] 10 mg PO DAILY 07/19/20 Pantoprazole Sodium [Protonix] 40 mg PO BID 07/19/20 Potassium Oral Tab [Klor-Con 10 mEq Tab*] 10 meq PO DAILY 07/19/20 Primidone 50 mg PO TID 07/19/20 Rosuvastatin [Crestor*] 10 mg PO DAILY 07/19/20 Spironolactone 50 mg PO DAILY 07/19/20 Tacrolimus [Prograf] 1 mg PO BID 07/19/20 mycophenolate mofetiL [Mycophenolate Mofetil] 1,000 mg PO BID 07/19/20 predniSONE [Prednisone*] 5 mg PO DAILY 07/19/20 Clopidogrel Bisulfate [Plavix*] 75 mg PO DAILY 10/30/20 Hydrocodone Bit/Acetaminophen [Hydrocodon-Acetaminoph 7.5-325] 1 each PO TID PRN 10/30/20 Albuterol Neb [Proventil 0.083% Neb Soln] 2.5 mg NEB [id number] #120 amp 11/03/20 Ipratropium Neb [Atrovent*] 0.5 mg NEB [id number] #120 amp 11/03/20 Aspirin [Aspirin EC] 1 tab PO DAILY 02/02/21 Cholestyramine [Cholestyramine Resin] 5 gm PO BEDTIME 02/02/21 Fluticasone/Umeclidin/Vilanter [Trelegy Ellipta 100-62.5-25] 1 puff IN DAILY 02/02/21 Insulin Aspart Prot/Insuln Asp [Novolog Mix 70-30 Flexpen] 1 in SQ BID 02/02/21 - Past Medical/Surgical History Diabetic: Yes -: Diabetes mellitus type 2 -: COPD -: CHF -: Atrial fibrillation with history of watchman procedure -: History aortic stenosis status post TAVR -: GERD -: HTN -: Gout -: Hyperlipidemia -: CAD status post stent LAD 2020 -: Severe aortic stenosis status post TAVR -: History of kidney transplant on antirejection medication -: R KNEE REPLACEMENT -: KIDNEY TRANSPLANT -: 40% STOMACH REMOVAL -: CARPAL TUNNEL REPAIR -: Rt Hip Replacement -: Skin graft to nose -: Cholecystectomy -: Appendectomy Psychosocial/ Personal History: Patient lives at home - Family History Father -: Heart disease, Hypertension, Diabetes Mother -: Hypertension, Stroke - Social History Smoking Status: Never smoker Alcohol use: Yes CD- Drugs: No Caffeine use: Yes Place of Residence: Home Review of Systems General: Weakness, As per HPI Eyes: Unremarkable ENT: Unremarkable Respiratory: Cough, Shortness of Breath, As per HPI Cardiovascular: Unremarkable Genitourinary: As per HPI Musculoskeletal: Unremarkable Integumentary: Unremarkable Neurological: Weakness, As per HPI Lymphatics: Unremarkable Other: Bleeding to the scrotal region. Physical Examination - Studies Laboratory Data (last 24 hrs) 03/14/21 08:30: PT 13.3 H, INR 1.15 03/14/21 08:30: WBC 14.00 H, Hgb 10.3 L, Hct 33.3 L, Plt Count 126 L 03/14/21 08:30: Sodium 139, Potassium 4.0, BUN 17, Creatinine 0.79, Glucose 188 H, Magnesium 2.0, Total Bilirubin 0.6, AST 7 L, ALT 15, Alkaline Phosphatase 59 Assessment and Plan - Plan COVID: Pending Chest x-ray: COMPARISON: Chest Single View dated 11/02/2020; Chest Single View dated 10/29/2020; Chest Single View dated 07/21/2020; Chest Single View dated 07/18/2020; Stone Protocol dated 10/29/2020; Thorax Wo Con dated 07/18/2020 FINDINGS: Lines: None. Lungs: Right perihilar consolidation. Pleural: No significant pleural effusions or pneumothorax. Cardiac: Cardiomegaly. Aortic valve prosthesis. Bones: No acute fractures. Remote left-sided rib fractures. IMPRESSION: Right perihilar consolidative process could reflect pneumonia. Recommend radiographic follow-up to ensure resolution. Underlying mass less likely given time course of the development (new since 11/02/2020). CT chest/abdomen pelvis: COMPARISON: No comparisons TECHNIQUE: CT of the chest, abdomen, and pelvis was performed. All CT scans are performed using dose optimization technique as appropriate and may include automated exposure control or mA/KV adjustment according to patient size. FINDINGS: Thorax: Chest Wall: No abnormal mass Lungs: Consolidative airspace disease within the anterior aspect of the right upper lobe. Scattered small pulmonary nodules are noted bilaterally including several right lower lobe which are new from prior but likely benign. Pleura: Small right pleural effusion. Mona/Mediastinum: No lymphadenopathy. Aorta/Pulmonary Arteries: Aortic valve prosthesis. Prominent pulmonary artery is could reflect pulmonary artery hypertension. Heart: Cardiomegaly. Left main and three-vessel coronary artery disease. Abdomen/Pelvis: Liver: Hepatic steatosis. Biliary: Cholecystectomy Stomach: Surgical changes at the gastric antrum. Duodenum: No significant focal abnormality. Pancreas: Pancreatic atrophy. Spleen: No significant abnormality. Adrenal: No suspicious lesions. Kidney/ureter: Atrophic [place] kidneys. Bilateral renal lesions which are too small to characterize are statistically benign. Right iliac fossa renal transplant. No renal calculi. No hydronephrosis. Retroperitoneum: No retroperitoneal adenopathy. Vascular: Atherosclerosis . Bowel: No significant focal abnormality. Peritoneum: No ascites or free air. Fat containing ventral hernias. Bladder: Grossly unremarkable. Reproductive: Scrotal edema. Benign fluid attenuation 3.4 cm structure located medially within the left leg of doubtful clinical significance. Bones: Right hip arthroplasty. No acute fractures seen. Remote left-sided rib fractures. IMPRESSION: 1. Right upper lobe consolidative process most likely representing pneumonia rather than inflammatory. Atypical infectious processes should be considered if immune suppressed. 2. No acute intra-abdominal abnormality. Physical Exam: GENERAL: The patient is a well-developed, well-nourished, in no apparent distress. Alert and oriented x3. VITAL SIGNS: Reviewed HEENT: Mouth appears dry. Head atraumatic NECK: Supple. No carotid bruits. No lymphadenopathy or thyromegaly. LUNGS: Clear to auscultation. No crackles or wheezes are heard. Currently on room air HEART: Regular rate and rhythm, no appreciable gallops, rubs, murmurs or extra heart sounds ABDOMEN: Soft, nontender, and nondistended. Positive bowel sounds. No hepatosplenomegaly was noted. EXTREMITIES: Without any cyanosis, clubbing, rash, lesions or peripheral edema. NEUROLOGIC: The patient is oriented to person, place and time. Strength and sensation are grossly intact. Face is symmetric. SKIN: Normal color, turgor and temperature. No ulcerations or rashes noted. Scrotum: Scrotal varicosities noted. No active bleeding noted. Dried scab to the left pelvic skin region. Impression: Fatigue secondary to right upper lobe pneumonia COPD on chronic steroid Scrotal bleeding likely from scrotal varicosities Hypertension Chronic diastolic CHF Atrial fibrillation with history of watchman procedure CAD with prior stents History of kidney transplant on antirejection medication Diabetes mellitus type 2 GERD Essential tremor Depression Plan: Fatigue secondary to right upper lobe pneumonia: Patient will be admitted for further evaluation and treatment. We will continue IV Levaquin. Continue with COPD medication. Patient on chronic steroid. Continue prednisone. We will recheck chest x-ray tomorrow. We will consult pulmonology to further evaluate. Patient is seen by pulmonology as an outpatient. Physical therapy to assess ambulation tomorrow. Maintain oxygen above 93%. Patient uses home oxygen and BiPAP at night. Anticipate home discharge likely tomorrow. COPD on chronic steroid: Continue prednisone 5 mg daily. Continue COPD medication. Scrotal bleeding likely from scrotal varicosities: No active bleeding noted. Will provide Lubriderm and nystatin. We will have wound care consult evaluate and treat area. No active bleeding noted. Hypertension: Restart home medication. Patient previously on labetalol. Will confirm Chronic diastolic CHF: Patient will get 1 L of fluid then Hep-Lock IV. Consider restarting Lasix tomorrow. Atrial fibrillation with history of watchman procedure: Continue with digoxin. Patient no longer on chronic anticoagulation therapy. Patient reports taking a spirin and Plavix. We will continue with medication. CAD with prior stents: Continue aspirin and Plavix. History of kidney transplant on antirejection medication: We will continue with his antirejection medication. We will obtain and verify home medication. Diabetes mellitus type 2: Accu-Cheks in place. GERD: Continue Protonix Essential tremor: Continue with his medication. Obtain and verify home medication.. Depression: Obtain and verify home medication and restart. Code Status: Full Code DVT prophylaxis: SCD Advanced Care Planning-30 minutes: Anticipate home with home health and physical therapy discharge. Discharge Plan: Home Plan to discharge in: 48 Hours - Advance Directives Does patient have a Living Will: No Does patient have a Durable POA for Healthcare: Yes - Code Status/Comfort Care Code Status Assessed: Yes (Patient is full code) Time Spent Managing Pts Care (In Minutes): 55
[2021-03-14 11:01] LABS: SARS-COV-2 RT PCR NEGATIVE (NEGATIVE)
[2021-03-14] MEDS ORDERED: BENZONATATE 100 MG CAP PO PRN (13:43)
[2021-03-14] MEDS ORDERED: D50W 25 GM/50 ML SYRINGE IV PRN (13:43)
[2021-03-14] MEDS: INSULIN -REGULAR HUMAN 50 UNIT/0.5 ML ML SQ SCH ×3 (13:43→21:00)
[2021-03-14] MEDS ORDERED: ACETAMINOPHEN 500 MG TAB PO PRN (13:43)
[2021-03-14] MEDS ORDERED: IPRATROPIUM BROM 0.5MG/2.5ML NEB PRN (13:43)
[2021-03-14] MEDS ORDERED: GLUCAGON 1 MG/VIAL IM PRN (13:43)
[2021-03-14] MEDS ORDERED: ONDANSETRON 4 MG/2 ML VIAL IV PRN (13:43)
[2021-03-14] MEDS ORDERED: ALBUTEROL 2.5 MG/3 ML NEB SOL NEB PRN (13:43)
[2021-03-14] MEDS ORDERED: PRIMIDONE 50 MG TAB PO SCH (14:00)
[2021-03-14] MEDS: NA CHLORIDE 0.9% 1,000 ML IV SCH (15:09)
[2021-03-14] MEDS: Levofloxacin 750mg IV 750 MG/150 ML BAG IV SCH (15:11)
[2021-03-14 15:30] VITALS: BMI 32.3
[2021-03-14] MEDS ORDERED: PNEUMOCOCCAL VACCINE 0.5 ML IMVAC ONE (16:00)
[2021-03-14] MEDS: METOPROLOL TAR 25 MG TAB PO SCH ×2 (16:41→17:45)
[2021-03-14] MEDS: PRIMIDONE 50 MG TAB PO SCH ×2 (16:41→21:04)
[2021-03-14] MEDS: ARFORMOTEROL TARTRATE 15 MCG/2 ML VIAL.NEB NEB SCH (19:59)
[2021-03-14] MEDS: PANTOPRAZOLE 40MG TABLET PO SCH (21:00)
[2021-03-14] MEDS: allopurinoL 100 MG TAB PO SCH (21:00)
[2021-03-14] MEDS: Mycophenolate Mofetil [Mycophenolate Mofetil] 500 MG Tablet PO SCH (21:00)
[2021-03-14] MEDS ORDERED: LABETALOL HCL 200 MG PO SCH (21:00)
[2021-03-14] MEDS ORDERED: CHOLESTYRAMINE 5 GM PO SCH (21:00)
[2021-03-14] MEDS ORDERED: CHOLESTYRAMINE/ASP 4 GM/PKT FT SCH (21:00)
[2021-03-14] MEDS: Tacrolimus [Prograf] 1 MG Capsule PO SCH (21:00)
[2021-03-14] MEDS ORDERED: LABETALOL HCL 100 MG TAB PO SCH (21:00)
[2021-03-14] MEDS: NYSTATIN 100MU/GM CREAM 15GM TOP SCH (21:04)
[2021-03-15] MEDS: MELATONIN 5 MG TABLET PO PRN ×2 (02:22→21:42)
[2021-03-15] MEDS: METOPROLOL TAR 25 MG TAB PO SCH ×2 (05:35→17:51)
[2021-03-15 05:52] LABS: Absolute Lymphocytes (CBC) 0.4 K/uL (0.7-4.9); Lymphocytes % 2.8 % (15.3-44.8); MPV 8.8 fL (7.6-11.3); RBC Red Blood Cell Count 3.64 M/uL (4.33-5.43)
--- NOTE | 2021-03-15 06:01 | P.PN ---
Subjective Date of Service: 03/15/21 Primary Care Provider: Dr. Almendarez; Pulm-Dr. Kitchen; Nephrology-[facility]; Card-Dr. Blackwell Chief Complaint: Fatigue, scrotal bleeding Subjective: Improving, Doing well (Fatigue. Currently on 2 L per nasal cannula) Physical Examination - Vital Signs Temperature: 98.3 F Blood Pressure: 137/65 Pulse: 85 Respirations: 20 Pulse Ox (%): 100 - Studies Laboratory Data (last 24 hrs) 03/14/21 08:30: PT 13.3 H, INR 1.15 03/14/21 08:30: WBC 14.00 H, Hgb 10.3 L, Hct 33.3 L, Plt Count 126 L 03/14/21 08:30: Sodium 139, Potassium 4.0, BUN 17, Creatinine 0.79, Glucose 188 H, Magnesium 2.0, Total Bilirubin 0.6, AST 7 L, ALT 15, Alkaline Phosphatase 59 Assessment & Plan Discharge Plan: Other ([facility] facility) Plan to discharge in: 48 Hours Physician Review Additional Text: COVID: negative Chest x-ray: COMPARISON: Chest Single View dated 11/02/2020; Chest Single View dated 10/29/2020; Chest Single View dated 07/21/2020; Chest Single View dated 07/18/2020; Stone Protocol dated 10/29/2020; Thorax Wo Con dated 07/18/2020 FINDINGS: Lines: None. Lungs: Right perihilar consolidation. Pleural: No significant pleural effusions or pneumothorax. Cardiac: Cardiomegaly. Aortic valve prosthesis. Bones: No acute fractures. Remote left-sided rib fractures. IMPRESSION: Right perihilar consolidative process could reflect pneumonia. Recommend radiographic follow-up to ensure resolution. Underlying mass less likely given time course of the development (new since 11/02/2020). CT chest/abdomen pelvis: COMPARISON: No comparisons TECHNIQUE: CT of the chest, abdomen, and pelvis was performed. All CT scans are performed using dose optimization technique as appropriate and may include automated exposure control or mA/KV adjustment according to patient size. FINDINGS: Thorax: Chest Wall: No abnormal mass Lungs: Consolidative airspace disease within the anterior aspect of the right upper lobe. Scattered small pulmonary nodules are noted bilaterally including several right lower lobe which are new from prior but likely benign. Pleura: Small right pleural effusion. Mona/Mediastinum: No lymphadenopathy. Aorta/Pulmonary Arteries: Aortic valve prosthesis. Prominent pulmonary artery is could reflect pulmonary artery hypertension. Heart: Cardiomegaly. Left main and three-vessel coronary artery disease. Abdomen/Pelvis: Liver: Hepatic steatosis. Biliary: Cholecystectomy Stomach: Surgical changes at the gastric antrum. Duodenum: No significant focal abnormality. Pancreas: Pancreatic atrophy. Spleen: No significant abnormality. Adrenal: No suspicious lesions. Kidney/ureter: Atrophic [place] kidneys. Bilateral renal lesions which are too small to characterize are statistically benign. Right iliac fossa renal transplant. No renal calculi. No hydronephrosis. Retroperitoneum: No retroperitoneal adenopathy. Vascular: Atherosclerosis . Bowel: No significant focal abnormality. Peritoneum: No ascites or free air. Fat containing ventral hernias. Bladder: Grossly unremarkable. Reproductive: Scrotal edema. Benign fluid attenuation 3.4 cm structure located medially within the left leg of doubtful clinical significance. Bones: Right hip arthroplasty. No acute fractures seen. Remote left-sided rib fractures. IMPRESSION: 1. Right upper lobe consolidative process most likely representing pneumonia rather than inflammatory. Atypical infectious processes should be considered if immune suppressed. 2. No acute intra-abdominal abnormality. Follow up CXR 03/15/2021: COMPARISON: Chest Single View dated 03/14/2021; Chest Single View dated 11/02/2020; Chest Single View dated 10/29/2020; Chest Single View dated 07/21/2020; Chest Abdomen Pelvis W Cont dated 03/14/2021 FINDINGS: Lines: None. Lungs: Consolidative airspace disease in the right upper lobe is similar. Increasing opacities within the medial aspect of the right lung base. Pleural: No significant pleural effusions or pneumothorax. Cardiac: Cardiomegaly. Aortic valve prosthesis. Coronary artery calcifications. Bones: No acute fractures. IMPRESSION: Consolidative pneumonia in the right upper lobe is similar but worsened aeration of the right lung base. Physical Exam: GENERAL: The patient is a well-developed, well-nourished, in no apparent distress. Alert and oriented x3. VITAL SIGNS: Reviewed HEENT: Mouth appears dry. Head atraumatic NECK: Supple. No carotid bruits. No lymphadenopathy or thyromegaly. LUNGS: Currently on 2 L per nasal cannula HEART: A. fib rate controlled ABDOMEN: Soft, nontender, and nondistended. Positive bowel sounds. No hepatosplenomegaly was noted. EXTREMITIES: Without any cyanosis, clubbing, rash, lesions or peripheral edema. NEUROLOGIC: The patient is oriented to person, place and time. Strength and sensation are grossly intact. Face is symmetric. SKIN: Normal color, turgor and temperature. No ulcerations or rashes noted. Scrotum: Scrotal varicosities noted. No active bleeding noted. Dried scab to the left pelvic skin region. Impression: Fatigue secondary to right upper lobe pneumonia COPD on chronic steroid Scrotal bleeding likely from scrotal varicosities Hypertension Chronic diastolic CHF Atrial fibrillation with history of watchman procedure CAD with prior stents History of kidney transplant on antirejection medication Diabetes mellitus type 2 GERD Essential tremor Depression Plan: Fatigue secondary to right upper lobe pneumonia: Patient doing well. Continue Levaquin. Patient on chronic steroid. Continue to wean off oxygen. Currently on 2 L per nasal cannula. Patient also uses BiPAP at night. Case discussed with pulmonology. Physical therapy evaluated patient. Physical therapy recommended skilled placement. Patient agreeable to go to skilled placement. Social work to help in skilled placement . COPD on chronic steroid: Continue prednisone 5 mg daily. Continue COPD medication. Scrotal bleeding likely from scrotal varicosities: No active bleeding noted. Will provide Lubriderm and nystatin. Continue wound care recommendations Hypertension: Continue metoprolol 25 mg 1 pill twice daily. Chronic diastolic CHF: Discontinue IV fluids. Restart Lasix 40 mg 1 pill twice daily and Aldactone 25 mg daily. Atrial fibrillation with history of watchman procedure: Continue with digoxin 125 mcg daily. Patient no longer on chronic anticoagulation therapy. Patient reports taking aspirin and Plavix. We will continue with medication. CAD with prior stents: Continue aspirin and Plavix. History of kidney transplant on antirejection medication: We will continue with his antirejection medication. Diabetes mellitus type 2: Accu-Cheks in place. GERD: Continue Protonix 40 mg daily Essential tremor: Continue with his medication primidone 50 mg 3 times a day. Depression: Continue home medication Cymbalta 30 mg daily Hyperlipidemia: Continue Lipitor 10 mg daily Code Status: Full Code DVT prophylaxis: SCD Advanced Care Planning-30 minutes: Patient agreeable to skilled placement. We will pursue skilled placement. Time Spent Managing Pts Care (In Minutes): 55
[2021-03-15 06:16] LABS: BUN Blood Urea Nitrogen 13 mg/dL (7-18); Bicarbonate 26 mmol/L (21-32); Glucose Level 125 mg/dL (74-106); Magnesium 1.8 mg/dL (1.8-2.4); Potassium 4.1 mmol/L (3.5-5.1); Sodium Level 136 mmol/L (136-145)
[2021-03-15] MEDS: INSULIN -REGULAR HUMAN 50 UNIT/0.5 ML ML SQ SCH ×4 (07:30→21:00)
--- NOTE | 2021-03-15 07:34 | RAD REPORT ---
EXAM DESCRIPTION: RAD - Chest Single View - 03/15/2021 7:21 am CLINICAL HISTORY: Follow up pneumonia COMPARISON: Chest Single View dated 03/14/2021; Chest Single View dated 11/02/2020; Chest Single View d ated 10/29/2020; Chest Single View dated 07/21/2020; Chest Abdomen Pelvis W Cont dated 03/14/2021 FINDINGS: Lines: None. Lungs: Consolidative airspace disease in the right upper lobe is similar. Increasing opacities within the medial aspect of the right lung base. Pleural: No significant pleural effusions or pneumothorax. Cardiac: Cardiomegaly. Aortic valve prosthesis. Coronary artery calcifications. Bones: No acute fractures. Other: IMPRESSION: Consolidative pneumonia in the right upper lobe is similar but worsened aeration of the right lung base.
[2021-03-15] MEDS: ARFORMOTEROL TARTRATE 15 MCG/2 ML VIAL.NEB NEB SCH ×2 (08:00→19:50)
[2021-03-15] MEDS ORDERED: TACROLIMUS 3 MG PO SCH (09:00)
[2021-03-15] MEDS ORDERED: MYCOPHENOLATE 1000 MG PO SCH (09:00)
[2021-03-15] MEDS: Mycophenolate Mofetil [Mycophenolate Mofetil] 500 MG Tablet PO SCH ×2 (09:00→21:00)
[2021-03-15] MEDS ORDERED: MAGNESIUM SULFATE 1 gm IVPB 1 GM/100 ML BAG IV ONE (09:00)
[2021-03-15 09:07] LABS: Blood Morphology Comment NOT SEEN (NOT SEEN); Platelet Estimate ADEQ
[2021-03-15] MEDS: PANTOPRAZOLE 40MG TABLET PO SCH ×2 (09:38→21:42)
[2021-03-15] MEDS: predniSONE 5 MG TAB PO SCH (09:38)
[2021-03-15] MEDS: THIAMINE HCL 100 MG TABLET PO SCH (09:38)
[2021-03-15] MEDS: DULOXETINE 30 MG CAP PO SCH (09:38)
[2021-03-15] MEDS: FOLIC ACID 1 MG TABLET PO SCH (09:38)
[2021-03-15] MEDS: MONTELUKAST 10 MG TAB PO SCH (09:38)
[2021-03-15] MEDS: ASPIRIN EC 81 MG TAB PO SCH (09:38)
[2021-03-15] MEDS: CLOPIDOGREL 75 MG TABLET PO SCH (09:38)
[2021-03-15] MEDS: allopurinoL 100 MG TAB PO SCH ×2 (09:38→21:42)
[2021-03-15] MEDS: ROSUVASTATIN 10 MG TAB PO SCH (09:38)
[2021-03-15] MEDS: DIGOXIN 0.125 MG TABLET PO SCH (09:38)
[2021-03-15] MEDS: NYSTATIN 100MU/GM CREAM 15GM TOP SCH ×2 (09:39→21:42)
[2021-03-15] MEDS: Tacrolimus [Prograf] 1 MG Capsule PO SCH ×2 (09:41→21:44)
[2021-03-15] MEDS: PRIMIDONE 50 MG TAB PO SCH ×3 (09:41→21:42)
[2021-03-15] MEDS: NA CHLORIDE 0.9% 1,000 ML IV SCH (09:43)
[2021-03-15] MEDS ORDERED: DICLOFENAC SODIUM TOP PRN (12:22)
[2021-03-15] MEDS ORDERED: POLYVINYL ALCOHOL 1.4% 15 ML OPTH PRN (12:25)
[2021-03-15] MEDS: Levofloxacin 750mg IV 750 MG/150 ML BAG IV SCH (15:28)
[2021-03-15] MEDS: FUROSEMIDE 40 MG TABLET PO SCH (17:51)
[2021-03-15] MEDS: BRIMONIDINE TARTRATE 0.15% 5 ML OPTH SCH (21:00)
[2021-03-15] MEDS: Cyclosporine [Restasis] Droperette OPTH SCH (21:00)
[2021-03-15] MEDS: TAFLUPROST OPTH SCH (22:04)
--- NOTE | 2021-03-16 03:56 | EKG ---
Test Date: 2021-03-14 Test Time: 08:48:55 Treating Engineer Helper: BP MEASUREMENT RESULTS: Intervals: Rate: 80 [place]: QRSD: 158 QT: 398 QTc: 459 [place]: P: [place]: QRS: -25 T: 28 INTERPRETIVE STATEMENTS: Atrial fibrillation with a competing junctional pacemaker Right bundle branch block Septal infarct, age undetermined Abnormal ECG Compared to ECG 07/18/2020 11:31:48 Myocardial infarct finding now present Electronically Signed On 03-16-21 03:54:22 LEAN LEADER by Dov Michel
[2021-03-16 05:35] LABS: Absolute Lymphocytes (CBC) 0.3 K/uL (0.7-4.9); Hematocrit 30.5 % (39.6-49.0); Lymphocytes % 2.5 % (15.3-44.8); MPV 8.9 fL (7.6-11.3); RBC Red Blood Cell Count 3.58 M/uL (4.33-5.43)
[2021-03-16 05:51] LABS: BUN Blood Urea Nitrogen 13 mg/dL (7-18); Bicarbonate 26 mmol/L (21-32); Glucose Level 115 mg/dL (74-106); Potassium 3.7 mmol/L (3.5-5.1); Sodium Level 133 mmol/L (136-145)
--- NOTE | 2021-03-16 05:51 | P.PN ---
Subjective Date of Service: 03/16/21 Primary Care Provider: Dr. Almendarez; Pulm-Dr. Kitchen; Nephrology-[facility]; Card-Dr. Blackwell Chief Complaint: Fatigue, scrotal bleeding Subjective: Improving, Doing well Physical Examination - Vital Signs Temperature: 97.5 F Blood Pressure: 140/66 Pulse: 92 Respirations: 17 Pulse Ox (%): 98 - Studies Laboratory Data (last 24 hrs) 03/15/21 05:07: Sodium 136, Potassium 4.1, BUN 13, Creatinine 0.63, Glucose 125 H, Magnesium 1.8 03/15/21 05:07: WBC 15.10 H, Hgb 9.8 L, Hct 31.0 L, Plt Count 112 L Microbiology Data (last 24 hrs): 03/14/21 10:00 Blood - Blood Blood Culture Gram Stain - Final Assessment & Plan Discharge Plan: Other (residential facility) Plan to discharge in: 24 Hours Physician Review Additional Text: COVID: negative Chest x-ray: COMPARISON: Chest Single View dated 11/02/2020; Chest Single View dated 10/29/2020; Chest Single View dated 07/21/2020; Chest Single View dated 07/18/2020; Stone Protocol dated 10/29/2020; Thorax Wo Con dated 07/18/2020 FINDINGS: Lines: None. Lungs: Right perihilar consolidation. Pleural: No significant pleural effusions or pneumothorax. Cardiac: Cardiomegaly. Aortic valve prosthesis. Bones: No acute fractures. Remote left-sided rib fractures. IMPRESSION: Right perihilar consolidative process could reflect pneumonia. Recommend radiographic follow-up to ensure resolution. Underlying mass less likely given time course of the development (new since 11/02/2020). CT chest/abdomen pelvis: COMPARISON: No comparisons TECHNIQUE: CT of the chest, abdomen, and pelvis was performed. All CT scans are performed using dose optimization technique as appropriate and may include automated exposure control or mA/KV adjustment according to patient size. FINDINGS: Thorax: Chest Wall: No abnormal mass Lungs: Consolidative airspace disease within the anterior aspect of the right upper lobe. Scattered small pulmonary nodules are noted bilaterally including several right lower lobe which are new from prior but likely benign. Pleura: Small right pleural effusion. Mona/Mediastinum: No lymphadenopathy. Aorta/Pulmonary Arteries: Aortic valve prosthesis. Prominent pulmonary artery is could reflect pulmonary artery hypertension. Heart: Cardiomegaly. Left main and three-vessel coronary artery disease. Abdomen/Pelvis: Liver: Hepatic steatosis. Biliary: Cholecystectomy Stomach: Surgical changes at the gastric antrum. Duodenum: No significant focal abnormality. Pancreas: Pancreatic atrophy. Spleen: No significant abnormality. Adrenal: No suspicious lesions. Kidney/ureter: Atrophic [place] kidneys. Bilateral renal lesions which are too small to characterize are statistically benign. Right iliac fossa renal transplant. No renal calculi. No hydronephrosis. Retroperitoneum: No retroperitoneal adenopathy. Vascular: Atherosclerosis . Bowel: No significant focal abnormality. Peritoneum: No ascites or free air. Fat containing ventral hernias. Bladder: Grossly unremarkable. Reproductive: Scrotal edema. Benign fluid attenuation 3.4 cm structure located medially within the left leg of doubtful clinical significance. Bones: Right hip arthroplasty. No acute fractures seen. Remote left-sided rib fractures. IMPRESSION: 1. Right upper lobe consolidative process most likely representing pneumonia rather than inflammatory. Atypical infectious processes should be considered if immune suppressed. 2. No acute intra-abdominal abnormality. Follow up CXR 03/15/2021: COMPARISON: Chest Single View dated 03/14/2021; Chest Single View dated 11/02/2020; Chest Single View dated 10/29/2020; Chest Single View dated 07/21/2020; Chest Abdomen Pelvis W Cont dated 03/14/2021 FINDINGS: Lines: None. Lungs: Consolidative airspace disease in the right upper lobe is similar. Increasing opacities within the medial aspect of the right lung base. Pleural: No significant pleural effusions or pneumothorax. Cardiac: Cardiomegaly. Aortic valve prosthesis. Coronary artery calcifications. Bones: No acute fractures. IMPRESSION: Consolidative pneumonia in the right upper lobe is similar but worsened aeration of the right lung base. Physical Exam: GENERAL: The patient is a well-developed, well-nourished, in no apparent distress. Alert and oriented x3. VITAL SIGNS: Reviewed HEENT: Mouth appears dry. Head atraumatic NECK: Supple. No carotid bruits. No lymphadenopathy or thyromegaly. LUNGS: Currently on 3 L per nasal cannula HEART: A. fib rate controlled ABDOMEN: Soft, nontender, and nondistended. Positive bowel sounds. No hepatosplenomegaly was noted. EXTREMITIES: Without any cyanosis, clubbing, rash, lesions or peripheral edema. NEUROLOGIC: The patient is oriented to person, place and time. Strength and sensation are grossly intact. Face is symmetric. SKIN: Normal color, turgor and temperature. No ulcerations or rashes noted. Scrotum: Scrotal varicosities noted. No active bleeding noted. Dried scab to the left pelvic skin region. Impression: Fatigue secondary to right upper lobe pneumonia COPD on chronic steroid Scrotal bleeding likely from scrotal varicosities Hypertension Chronic diastolic CHF Atrial fibrillation with history of watchman procedure CAD with prior stents History of kidney transplant on antirejection medication Diabetes mellitus type 2 GERD Essential tremor Depression Chronic diarrhea Plan: Fatigue secondary to right upper lobe pneumonia: Patient continues to do well. Continue Levaquin. Currently on 3 L per nasal cannula. Continue to wean off oxygen to maintain sats above 93%. Patient uses BiPAP at night. Continue physical therapy. Patient awaiting approval for skilled placement likely within the next 24 hours. COPD on chronic steroid: Continue prednisone 5 mg daily. Continue COPD medicationBrovana/albuterol/Atrovent. Scrotal bleeding likely from scrotal varicosities: No active bleeding noted. Will provide Lubriderm and nystatin. Continue wound care recommendations Hypertension: Continue metoprolol 25 mg 1 pill twice daily. Chronic diastolic CHF: Continue Lasix 40 mg 1 pill twice daily and Aldactone 50 mg daily. Atrial fibrillation with history of watchman procedure: Continue with digoxin 125 mcg daily. Patient no longer on chronic anticoagulation therapy. Continue aspirin 81 mg daily and Plavix 75 mg daily CAD with prior stents: Continue aspirin and Plavix. History of kidney transplant on antirejection medication: We will continue with his antirejection medication. Diabetes mellitus type 2: Accu-Cheks in place. GERD: Continue Protonix 40 mg daily Essential tremor: Continue with his medication primidone 50 mg 3 times a day. Depression: Continue home medication Cymbalta 30 mg daily Hyperlipidemia: Continue Crestor 10 mg daily Chronic diarrhea: Restart cholestyramine twice daily. We will also continue with lactobacillus. Patient is seen by GI as an outpatient Code Status: Full Code DVT prophylaxis: SCD Advanced Care Planning-30 minutes: Patient agreeable to skilled placement. Await approval for skilled placement. Time Spent Managing Pts Care (In Minutes): 55
[2021-03-16] MEDS: METOPROLOL TAR 25 MG TAB PO SCH ×2 (05:58→17:51)
[2021-03-16] MEDS: INSULIN -REGULAR HUMAN 50 UNIT/0.5 ML ML SQ SCH ×4 (07:30→21:00)
[2021-03-16 07:55] LABS: Anisocytosis 1+; Blood Morphology Comment NOTED (NOT SEEN); Platelet Estimate ADEQ
[2021-03-16 07:56] LABS: Ovalocytes SLIGHT
[2021-03-16] MEDS: PRIMIDONE 50 MG TAB PO SCH ×3 (08:26→22:45)
[2021-03-16] MEDS: FUROSEMIDE 40 MG TABLET PO SCH ×2 (08:26→16:04)
[2021-03-16] MEDS: FOLIC ACID 1 MG TABLET PO SCH (08:26)
[2021-03-16] MEDS: SPIRONOLACTONE 25 MG TABLET PO SCH (08:26)
[2021-03-16] MEDS: THIAMINE HCL 100 MG TABLET PO SCH (08:26)
[2021-03-16] MEDS: DULOXETINE 30 MG CAP PO SCH (08:26)
[2021-03-16] MEDS: CLOPIDOGREL 75 MG TABLET PO SCH (08:26)
[2021-03-16] MEDS: MONTELUKAST 10 MG TAB PO SCH (08:26)
[2021-03-16] MEDS: ROSUVASTATIN 10 MG TAB PO SCH (08:27)
[2021-03-16] MEDS: CHOLESTYRAMINE/ASP 4 GM/PKT PO SCH ×2 (08:27→16:06)
[2021-03-16] MEDS: PANTOPRAZOLE 40MG TABLET PO SCH ×2 (08:27→22:44)
[2021-03-16] MEDS: DIGOXIN 0.125 MG TABLET PO SCH (08:27)
[2021-03-16] MEDS: allopurinoL 100 MG TAB PO SCH ×2 (08:27→22:45)
[2021-03-16] MEDS: ASPIRIN EC 81 MG TAB PO SCH (08:27)
[2021-03-16] MEDS: NYSTATIN 100MU/GM CREAM 15GM TOP SCH ×2 (08:27→21:00)
[2021-03-16] MEDS: predniSONE 5 MG TAB PO SCH (08:27)
[2021-03-16] MEDS: Mycophenolate Mofetil [Mycophenolate Mofetil] 500 MG Tablet PO SCH ×2 (08:28→21:00)
[2021-03-16] MEDS: Tacrolimus [Prograf] 1 MG Capsule PO SCH ×2 (08:28→21:00)
[2021-03-16] MEDS: BRIMONIDINE TARTRATE 0.15% 5 ML OPTH SCH ×2 (08:29→21:00)
[2021-03-16] MEDS: Cyclosporine [Restasis] Droperette OPTH SCH ×2 (08:46→21:00)
[2021-03-16] MEDS: ARFORMOTEROL TARTRATE 15 MCG/2 ML VIAL.NEB NEB SCH ×2 (08:49→19:37)
--- NOTE | 2021-03-16 08:49 | P.CNS ---
Date of Consult: 03/16/21 Primary Care Provider: Dr. Almendarez; Pulm-Dr. Kitchen; Nephrology-[facility]; Card-Dr. Blackwell Chief Complaint: Pneumonia History of Present Illness: Patient is 76 years of age well-known to me multiple medical problems complaining of fatigue admitted with scrotal bleeding patient has been on anticoagulation he had a history of watchman procedure scrotal bleeding has stopped he denies any new pulmonary complaints no fever chills or chest pain Allergies NSAIDS (Non-Steroidal Anti-Inflamma Allergy (Verified 02/02/21 09:06) stomach pains Penicillins Allergy (Verified 02/02/21 09:06) Itching/Hives/Rash aspirin Adverse Reaction (Verified 02/02/21 09:06) Rash warfarin Adverse Reaction (Verified 02/02/21 09:06) Rash Home Medications: Allopurinol 100 mg PO BID 07/19/20 Diclofenac Sodium [Voltaren] 1 g TOP TIDP PRN 07/19/20 Digoxin [Lanoxin*] 0.125 mg PO DAILY 07/19/20 Duloxetine HCl [Cymbalta] 30 mg PO DAILY 07/19/20 Furosemide [Lasix*] 40 mg PO BIDL 07/19/20 Labetalol HCl [Trandate] 200 mg PO BID 07/19/20 Montelukast [Singulair*] 10 mg PO DAILY 07/19/20 Pantoprazole Sodium [Protonix] 40 mg PO BID 07/19/20 Potassium Oral Tab [Klor-Con 10 mEq Tab*] 10 meq PO DAILY 07/19/20 Primidone 50 mg PO TID 07/19/20 Rosuvastatin [Crestor*] 10 mg PO BEDTIME 07/19/20 Spironolactone 50 mg PO DAILY 07/19/20 Tacrolimus [Prograf] 3 mg PO BID 07/19/20 mycophenolate mofetiL [Mycophenolate Mofetil] 1,000 mg PO BID 07/19/20 predniSONE [Prednisone*] 5 mg PO DAILY 07/19/20 Clopidogrel Bisulfate [Plavix*] 75 mg PO DAILY 10/30/20 Hydrocodone Bit/Acetaminophen [Hydrocodon-Acetaminoph 7.5-325] 1 each PO TID PRN 10/30/20 Albuterol Neb [Proventil 0.083% Neb Soln] 2.5 mg [facility]B [id number] amp 11/03/20 Aspirin [Aspirin EC] 1 tab PO DAILY 02/02/21 Cholestyramine [Cholestyramine Resin] 5 gm PO BEDTIME 02/02/21 Fluticasone/Umeclidin/Vilanter [Trelegy Ellipta 100-62.5-25] 1 puff IN DAILY 02/02/21 Insulin Aspart Prot/Insuln Asp [Novolog Mix 70-30 Flexpen] 1 in SQ BID 02/02/21 Brimonidine Tartrate 10 ml OP BID 03/14/21 Carboxymethylcellulos/Glycerin [Refresh Optive Eye Drops] 15 ml OP QID PRN 03/14/21 Carboxymethylcellulose Sodium [Lubricant Eye Drop] 15 ml OP DAILY 03/14/21 Cyclosporine [Restasis] 1 drop EACH EYE BID 03/14/21 Ipratropium [place] 2 spray NS QID 03/14/21 Tafluprost/Pf [Zioptan 0.0015% Eye Drops] 1 each OP DAILY 03/14/21 - Past Medical/Surgical History Diabetic: Yes -: Diabetes mellitus type 2 -: COPD -: CHF -: Atrial fibrillation with history of watchman procedure -: History aortic stenosis status post TAVR -: GERD -: HTN -: Gout -: Hyperlipidemia -: CAD status post stent LAD 2020 -: Severe aortic stenosis status post TAVR -: History of kidney transplant on antirejection medication -: R KNEE REPLACEMENT -: KIDNEY TRANSPLANT -: 40% STOMACH REMOVAL -: CARPAL TUNNEL REPAIR -: Rt Hip Replacement -: Skin graft to nose -: Cholecystectomy -: Appendectomy Psychosocial/ Personal History: Patient lives at home - Family History Father Medical History: Heart disease, Hypertension, Diabetes Mother Medical History: Hypertension, Stroke - Social History Smoking Status: Unknown if ever smoked Alcohol use: Yes CD- Drugs: No Caffeine use: Yes Place of Residence: Home Review of Systems 10-point ROS is otherwise unremarkable General: Weakness Respiratory: Shortness of Breath Physical Examination Temp Pulse Resp BP Pulse Ox 97.5 F 92 H 17 140/66 98 03/16/21 05:51 03/16/21 05:58 03/16/21 05:51 03/16/21 05:58 03/16/21 05:51 General: Alert, In no apparent distress, Oriented x3 HEENT: Atraumatic Neck: Supple Respiratory: Clear to auscultation bilaterally, Diminished Cardiovascular: No edema, Irregular heart rate/rhythm Gastrointestinal: Normal bowel sounds, Soft and benign Laboratory Data (last 24 hrs) 03/15/21 05:07: WBC 15.10 H, Hgb 9.8 L, Hct 31.0 L, Plt Count 112 L - Problems (1) Pneumonia Current Visit: Yes Status: Acute Plan: Patient is 76 years of age multiple medical problems including a history of renal transplant admitted with scrotal bleeding is found to have a right middle lobe consolidation denies any pulmonary complaints he has COPD white count is minimally elevated patient was on Plavix changed to p.o. levofloxacin patient is eating and drinking follow-up chest x-ray in about 4-week vital signs stable renal function normal Qualifiers: Pneumonia type: due to unspecified organism
[2021-03-16] MEDS ORDERED: POTASSIUM CL SA 10 MEQ TAB PO ONE (09:00)
[2021-03-16] MEDS ORDERED: CARBOXYMETHYLCELLULOSE SODIUM OP SCH (09:00)
[2021-03-16] MEDS ORDERED: TAFLUPROST OPTH SCH (09:00)
[2021-03-16] MEDS: levoFLOXacin 750 MG TAB PO SCH (09:04)
[2021-03-16] MEDS: TAFLUPROST OPTH SCH (21:00)
[2021-03-17 04:17] LABS: BUN Blood Urea Nitrogen 13 mg/dL (7-18); Bicarbonate 27 mmol/L (21-32); Glucose Level 120 mg/dL (74-106); Potassium 3.8 mmol/L (3.5-5.1); Sodium Level 135 mmol/L (136-145)
[2021-03-17] MEDS: METOPROLOL TAR 25 MG TAB PO SCH (06:00)
--- NOTE | 2021-03-17 06:01 | P.PN ---
Subjective Date of Service: 03/17/21 Primary Care Provider: Dr. Almendarez; Pulm-Dr. Kitchen; Nephrology-[facility]; Card-Dr. Blackwell Chief Complaint: Fatigue, scrotal bleeding Subjective: Improving, Doing well Physical Examination - Vital Signs Temperature: 98.9 F Blood Pressure: 172/77 Pulse: 98 Respirations: 17 Pulse Ox (%): 97 - Studies Microbiology Data (last 24 hrs): 03/14/21 10:00 Blood - Blood Blood Culture Gram Stain - Final Assessment & Plan Discharge Plan: Other (group home facility) Plan to discharge in: 24 Hours Physician Review Additional Text: COVID: negative Chest x-ray: COMPARISON: Chest Single View dated 11/02/2020; Chest Single View dated 10/29/2020; Chest Single View dated 07/21/2020; Chest Single View dated 07/18/2020; Stone Protocol dated 10/29/2020; Thorax Wo Con dated 07/18/2020 FINDINGS: Lines: None. Lungs: Right perihilar consolidation. Pleural: No significant pleural effusions or pneumothorax. Cardiac: Cardiomegaly. Aortic valve prosthesis. Bones: No acute fractures. Remote left-sided rib fractures. IMPRESSION: Right perihilar consolidative process could reflect pneumonia. Recommend radiographic follow-up to ensure resolution. Underlying mass less likely given time course of the development (new since 11/02/2020). CT chest/abdomen pelvis: COMPARISON: No comparisons TECHNIQUE: CT of the chest, abdomen, and pelvis was performed. All CT scans are performed using dose optimization technique as appropriate and may include automated exposure control or mA/KV adjustment according to patient size. FINDINGS: Thorax: Chest Wall: No abnormal mass Lungs: Consolidative airspace disease within the anterior aspect of the right upper lobe. Scattered small pulmonary nodules are noted bilaterally including several right lower lobe which are new from prior but likely benign. Pleura: Small right pleural effusion. Mona/Mediastinum: No lymphadenopathy. Aorta/Pulmonary Arteries: Aortic valve prosthesis. Prominent pulmonary artery is could reflect pulmonary artery hypertension. Heart: Cardiomegaly. Left main and three-vessel coronary artery disease. Abdomen/Pelvis: Liver: Hepatic steatosis. Biliary: Cholecystectomy Stomach: Surgical changes at the gastric antrum. Duodenum: No significant focal abnormality. Pancreas: Pancreatic atrophy. Spleen: No significant abnormality. Adrenal: No suspicious lesions. Kidney/ureter: Atrophic [place] kidneys. Bilateral renal lesions which are too small to characterize are statistically benign. Right iliac fossa renal transplant. No renal calculi. No hydronephrosis. Retroperitoneum: No retroperitoneal adenopathy. Vascular: Atherosclerosis . Bowel: No significant focal abnormality. Peritoneum: No ascites or free air. Fat containing ventral hernias. Bladder: Grossly unremarkable. Reproductive: Scrotal edema. Benign fluid attenuation 3.4 cm structure located medially within the left leg of doubtful clinical significance. Bones: Right hip arthroplasty. No acute fractures seen. Remote left-sided rib fractures. IMPRESSION: 1. Right upper lobe consolidative process most likely representing pneumonia rather than inflammatory. Atypical infectious processes should be considered if immune suppressed. 2. No acute intra-abdominal abnormality. Follow up CXR 03/15/2021: COMPARISON: Chest Single View dated 03/14/2021; Chest Single View dated 11/02/2020; Chest Single View dated 10/29/2020; Chest Single View dated 07/21/2020; Chest Abdomen Pelvis W Cont dated 03/14/2021 FINDINGS: Lines: None. Lungs: Consolidative airspace disease in the right upper lobe is similar. Increasing opacities within the medial aspect of the right lung base. Pleural: No significant pleural effusions or pneumothorax. Cardiac: Cardiomegaly. Aortic valve prosthesis. Coronary artery calcifications. Bones: No acute fractures. IMPRESSION: Consolidative pneumonia in the right upper lobe is similar but wors ened aeration of the right lung base. Physical Exam: GENERAL: The patient is a well-developed, well-nourished, in no apparent distress. Alert and oriented x3. VITAL SIGNS: Reviewed HEENT: Mouth appears dry. Head atraumatic NECK: Supple. No carotid bruits. No lymphadenopathy or thyromegaly. LUNGS: Clear anteriorly. Currently on 3 L per nasal cannula HEART: A. fib rate controlled ABDOMEN: Soft, nontender, and nondistended. Positive bowel sounds. No hepatosplenomegaly was noted. EXTREMITIES: Without any cyanosis, clubbing, rash, lesions or peripheral edema. NEUROLOGIC: The patient is oriented to person, place and time. Strength and sensation are grossly intact. Face is symmetric. SKIN: Normal color, turgor and temperature. No ulcerations or rashes noted. Scrotum: Scrotal varicosities noted. No active bleeding noted. Dried scab to the left pelvic skin region. Impression: Fatigue secondary to right upper lobe pneumonia COPD on chronic steroid Scrotal bleeding likely from scrotal varicosities Hypertension Chronic diastolic CHF Atrial fibrillation with history of watchman procedure CAD with prior stents History of kidney transplant on antirejection medication Diabetes mellitus type 2 GERD Essential tremor Depression Chronic diarrhea Plan: Fatigue secondary to right upper lobe pneumonia: Patient continues to improve. Currently on 2 L per nasal cannula. Continue to wean off oxygen to maintain sats above 93%. Patient uses BiPAP at night. Patient currently on Levaquin. P atient will continue with treatment for at least a total of 7 days. Currently on day 2. Awaiting approval for skilled placement. This may occur as early as today. Will discuss with [employer] school social [employer] teacher. I will turn to service over to the hospitalist team tomorrow. I will go over plan of care with him. COPD on chronic steroid: Continue prednisone 5 mg daily. Continue COPD medicationBrovana/albuterol/Atrovent. Scrotal bleeding likely from scrotal varicosities: No active bleeding noted. Will provide Lubriderm and nystatin. Continue wound care recommendations Hypertension: Blood pressure still slightly elevated. Will increase metoprolol to 50 mg 1 pill twice daily. We will continue to monitor and address. Chronic diastolic CHF: Continue Lasix 40 mg 1 pill twice daily and Aldactone 50 mg daily. Atrial fibrillation with history of watchman procedure: Continue with digoxin 125 mcg daily. Patient no longer on chronic anticoagulation therapy. Continue aspirin 81 mg daily and Plavix 75 mg daily CAD with prior stents: Continue aspirin and Plavix. History of kidney transplant on antirejection medication: We will continue with his antirejection medication. Diabetes mellitus type 2: Accu-Cheks in place. GERD: Continue Protonix 40 mg daily Essential tremor: Continue with his medication primidone 50 mg 3 times a day. Depression: Continue home medication Cymbalta 30 mg daily Hyperlipidemia: Continue Crestor 10 mg daily Chronic diarrhea: Continue cholestyramine twice daily. We will also continue with lactobacillus. Patient is seen by GI as an outpatient Code Status: Full Code DVT prophylaxis: SCD Advanced Care Planning-30 minutes: Patient agreeable to skilled placement. Await approval for skilled placement. Time Spent Managing Pts Care (In Minutes): 55
[2021-03-17] MEDS: INSULIN -REGULAR HUMAN 50 UNIT/0.5 ML ML SQ SCH ×4 (07:30→21:00)
[2021-03-17] MEDS: ARFORMOTEROL TARTRATE 15 MCG/2 ML VIAL.NEB NEB SCH ×2 (08:50→20:26)
[2021-03-17] MEDS: Mycophenolate Mofetil [Mycophenolate Mofetil] 500 MG Tablet PO SCH ×2 (09:00→21:20)
[2021-03-17] MEDS: MONTELUKAST 10 MG TAB PO SCH (09:00)
[2021-03-17] MEDS: BRIMONIDINE TARTRATE 0.15% 5 ML OPTH SCH ×2 (09:00→21:00)
[2021-03-17] MEDS: Cyclosporine [Restasis] Droperette OPTH SCH ×2 (09:00→21:00)
[2021-03-17] MEDS: predniSONE 5 MG TAB PO SCH (09:07)
[2021-03-17] MEDS: PRIMIDONE 50 MG TAB PO SCH ×3 (09:08→21:15)
[2021-03-17] MEDS: levoFLOXacin 750 MG TAB PO SCH (09:08)
[2021-03-17] MEDS: FUROSEMIDE 40 MG TABLET PO SCH ×2 (09:10→16:24)
[2021-03-17] MEDS: DULOXETINE 30 MG CAP PO SCH (09:10)
[2021-03-17] MEDS: CLOPIDOGREL 75 MG TABLET PO SCH (09:10)
[2021-03-17] MEDS: FOLIC ACID 1 MG TABLET PO SCH (09:10)
[2021-03-17] MEDS: PANTOPRAZOLE 40MG TABLET PO SCH ×2 (09:10→21:17)
[2021-03-17] MEDS: DIGOXIN 0.125 MG TABLET PO SCH (09:10)
[2021-03-17] MEDS: allopurinoL 100 MG TAB PO SCH ×2 (09:10→21:17)
[2021-03-17] MEDS: ASPIRIN EC 81 MG TAB PO SCH (09:10)
[2021-03-17] MEDS: ROSUVASTATIN 10 MG TAB PO SCH (09:11)
[2021-03-17] MEDS: CHOLESTYRAMINE/ASP 4 GM/PKT PO SCH ×2 (09:11→16:24)
[2021-03-17] MEDS: THIAMINE HCL 100 MG TABLET PO SCH (09:11)
[2021-03-17] MEDS: SPIRONOLACTONE 25 MG TABLET PO SCH (09:11)
[2021-03-17] MEDS: NYSTATIN 100MU/GM CREAM 15GM TOP SCH ×2 (09:12→21:21)
[2021-03-17] MEDS: Tacrolimus [Prograf] 1 MG Capsule PO SCH ×2 (09:12→21:18)
[2021-03-17 10:00] LABS: Urine Appearance CLEAR (Clear); Urine Bilirubin NEGATIVE (Negative); Urine Blood NEGATIVE (Negative); Urine Color YELLOW (Yellow); Urine Glucose NEGATIVE (Negative); Urine Protein 2+ (Negative); Urine Urobilinogen 0.2 mg/dL (0.2-1.0)
[2021-03-17] MEDS: LABETALOL HCL 100 MG TAB PO SCH ×2 (10:13→21:17)
[2021-03-17 10:30] LABS: Urine Microscopic Reflex ORDER UMIC
[2021-03-17 10:46] LABS: Urine Bacteria <20 /HPF (NONE SEEN); Urine RBC <5 /HPF (NONE SEEN)
[2021-03-17] MEDS ORDERED: METOPROLOL TAR 50 MG TAB PO SCH (18:00)
[2021-03-17] MEDS: TAFLUPROST OPTH SCH (21:00)
[2021-03-18 06:05] LABS: BUN Blood Urea Nitrogen 16 mg/dL (7-18); Bicarbonate 29 mmol/L (21-32); Glucose Level 112 mg/dL (74-106); Potassium 3.7 mmol/L (3.5-5.1); Sodium Level 136 mmol/L (136-145)
[2021-03-18] MEDS: INSULIN -REGULAR HUMAN 50 UNIT/0.5 ML ML SQ SCH ×4 (07:30→21:03)
[2021-03-18] MEDS: ARFORMOTEROL TARTRATE 15 MCG/2 ML VIAL.NEB NEB SCH ×2 (08:00→20:15)
[2021-03-18] MEDS ORDERED: POTASSIUM CL SA 10 MEQ TAB PO ONE (09:00)
[2021-03-18] MEDS: Cyclosporine [Restasis] Droperette OPTH SCH ×2 (09:00→20:59)
[2021-03-18] MEDS: BRIMONIDINE TARTRATE 0.15% 5 ML OPTH SCH ×2 (09:00→20:59)
[2021-03-18] MEDS: CHOLESTYRAMINE/ASP 4 GM/PKT PO SCH ×2 (09:42→16:25)
[2021-03-18] MEDS: allopurinoL 100 MG TAB PO SCH ×2 (09:42→21:00)
[2021-03-18] MEDS: ASPIRIN EC 81 MG TAB PO SCH (09:43)
[2021-03-18] MEDS: CLOPIDOGREL 75 MG TABLET PO SCH (09:43)
[2021-03-18] MEDS: PRIMIDONE 50 MG TAB PO SCH ×3 (09:43→21:02)
[2021-03-18] MEDS: ROSUVASTATIN 10 MG TAB PO SCH (09:43)
[2021-03-18] MEDS: FOLIC ACID 1 MG TABLET PO SCH (09:43)
[2021-03-18] MEDS: PANTOPRAZOLE 40MG TABLET PO SCH ×2 (09:43→21:02)
[2021-03-18] MEDS: levoFLOXacin 750 MG TAB PO SCH (09:43)
[2021-03-18] MEDS: THIAMINE HCL 100 MG TABLET PO SCH (09:43)
[2021-03-18] MEDS: DULOXETINE 30 MG CAP PO SCH (09:43)
[2021-03-18] MEDS: LABETALOL HCL 100 MG TAB PO SCH ×2 (09:44→21:00)
[2021-03-18] MEDS: SPIRONOLACTONE 25 MG TABLET PO SCH (09:44)
[2021-03-18] MEDS: FUROSEMIDE 40 MG TABLET PO SCH (09:44)
[2021-03-18] MEDS: DIGOXIN 0.125 MG TABLET PO SCH (09:45)
[2021-03-18] MEDS: predniSONE 5 MG TAB PO SCH (09:45)
[2021-03-18] MEDS: NYSTATIN 100MU/GM CREAM 15GM TOP SCH ×2 (09:46→21:04)
[2021-03-18] MEDS: Tacrolimus [Prograf] 1 MG Capsule PO SCH ×2 (09:46→21:00)
[2021-03-18] MEDS: Mycophenolate Mofetil [Mycophenolate Mofetil] 500 MG Tablet PO SCH ×2 (09:47→20:59)
[2021-03-18] MEDS: MONTELUKAST 10 MG TAB PO SCH (10:49)
[2021-03-18] MEDS ORDERED: FUROSEMIDE 40 MG/4 ML VIAL IV ONE (10:50)
[2021-03-18] MEDS ORDERED: METHYLPREDNISOLONE 125 MG INJ IV ONE (10:50)
--- NOTE | 2021-03-18 10:50 | P.PN ---
Subjective Date of Service: 03/18/21 Primary Care Provider: Dr. Almendarez; Pulm-Dr. Kitchen; Nephrology-[facility]; Card-Dr. Blackwell Chief Complaint: Fatigue, scrotal bleeding Subjective: No new changes, No C/O voiced (Still mild intermittent wheezing) Physical Examination - Vital Signs Temperature: 98.2 F Blood Pressure: 144/79 Pulse: 101 Respirations: 26 Pulse Ox (%): 95 - Studies Microbiology Data (last 24 hrs): 03/14/21 10:00 Blood - Blood Blood Culture Gram Stain - Final Assessment And Plan Physician Review Additional Text: COVID: negative Chest x-ray: COMPARISON: Chest Single View dated 11/02/2020; Chest Single View dated 10/29/2020; Chest Single View dated 07/21/2020; Chest Single View dated 07/18/2020; Stone Protocol dated 10/29/2020; Thorax Wo Con dated 07/18/2020 FINDINGS: Lines: None. Lungs: Right perihilar consolidation. Pleural: No significant pleural effusions or pneumothorax. Cardiac: Cardiomegaly. Aortic valve prosthesis. Bones: No acute fractures. Remote left-sided rib fractures. IMPRESSION: Right perihilar consolidative process could reflect pneumonia. Recommend radiographic follow-up to ensure resolution. Underlying mass less likely given time course of the development (new since 11/02/2020). CT chest/abdomen pelvis: COMPARISON: No comparisons TECHNIQUE: CT of the chest, abdomen, and pelvis was performed. All CT scans are performed using dose optimization technique as appropriate and may include automated exposure control or mA/KV adjustment according to patient size. FINDINGS: Thorax: Chest Wall: No abnormal mass Lungs: Consolidative airspace disease within the anterior aspect of the right upper lobe. Scattered small pulmonary nodules are noted bilaterally including several right lower lobe which are new from prior but likely benign. Pleura: Small right pleural effusion. Mona/Mediastinum: No lymphadenopathy. Aorta/Pulmonary Arteries: Aortic valve prosthesis. Prominent pulmonary artery is could reflect pulmonary artery hypertension. Heart: Cardiomegaly. Left main and three-vessel coronary artery disease. Abdomen/Pelvis: Liver: Hepatic steatosis. Biliary: Cholecystectomy Stomach: Surgical changes at the gastric antrum. Duodenum: No significant focal abnormality. Pancreas: Pancreatic atrophy. Spleen: No significant abnormality. Adrenal: No suspicious lesions. Kidney/ureter: Atrophic [place] kidneys. Bilateral renal lesions which are too small to characterize are statistically benign. Right iliac fossa renal transplant. No renal calculi. No hydronephrosis. Retroperitoneum: No retroperitoneal adenopathy. Vascular: Atherosclerosis . Bowel: No significant focal abnormality. Peritoneum: No ascites or free air. Fat containing ventral hernias. Bladder: Grossly unremarkable. Reproductive: Scrotal edema. Benign fluid attenuation 3.4 cm structure located medially within the left leg of doubtful clinical significance. Bones: Right hip arthroplasty. No acute fractures seen. Remote left-sided rib fractures. IMPRESSION: 1. Right upper lobe consolidative process most likely representing pneumonia rather than inflammatory. Atypical infectious processes should be considered if immune suppressed. 2. No acute intra-abdominal abnormality. Follow up CXR 03/15/2021: COMPARISON: Chest Single View dated 03/14/2021; Chest Single View dated 11/02/2020; Chest Single View dated 10/29/2020; Chest Single View dated 07/21/2020; Chest Abdomen Pelvis W Cont dated 03/14/2021 FINDINGS: Lines: None. Lungs: Consolidative airspace disease in the right upper lobe is similar. I ncreasing opacities within the medial aspect of the right lung base. Pleural: No significant pleural effusions or pneumothorax. Cardiac: Cardiomegaly. Aortic valve prosthesis. Coronary artery calcifications. Bones: No acute fractures. IMPRESSION: Consolidative pneumonia in the right upper lobe is similar but worsened aeration of the right lung base. Physical Exam: GENERAL: The patient is a well-developed, well-nourished, in no apparent distress. Alert and oriented x3. VITAL SIGNS: Reviewed HEENT: Mouth appears dry. Head atraumatic NECK: Supple. No carotid bruits. No lymphadenopathy or thyromegaly. LUNGS: Clear anteriorly. Currently on 3 L per nasal cannula, still mild intermittent wheezing HEART: A. fib rate controlled ABDOMEN: Soft, nontender, and nondistended. Positive bowel sounds. No hepatosplenomegaly was noted. EXTREMITIES: Without any cyanosis, clubbing, rash, lesions or peripheral edema. NEUROLOGIC: The patient is oriented to person, place and time. Strength and sensation are grossly intact. Face is symmetric. SKIN: Normal color, turgor and temperature. No ulcerations or rashes noted. Scrotum: Scrotal varicosities noted. No active bleeding noted. Dried scab to the left pelvic skin region. Impression: Fatigue secondary to right upper lobe pneumonia COPD on chronic steroid Scrotal bleeding likely from scrotal varicosities Hypertension Chronic diastolic CHF Atrial fibrillation with history of watchman procedure CAD with prior stents History of kidney transplant on antirejection medication Diabetes mellitus type 2 GERD Essential tremor Depression Chronic diarrhea Plan: Fatigue secondary to right upper lobe pneumonia: Slow to improve now Still on 3 L -We increased dose of prednisone since intermittent wheezing We will dose Lasix x1 today Continue duo nebs - Awaiting approval for skilled placement. Follow with social security assessor. COPD on chronic steroid: Continue steroid continue COPD medicationBrovana/albuterol/Atrovent. Scrotal bleeding likely from scrotal varicosities: No active bleeding noted. Continue Lubriderm and nystatin. Continue wound care recommendations Hypertension: Improving, status post recently increase metoprolol We will continue to monitor and address. Chronic diastolic CHF: Continue Lasix 40 mg 1 pill twice daily and Aldactone 50 mg daily. Atrial fibrillation with history of watchman procedure: Continue with digoxin 125 mcg daily. Patient no longer on chronic anticoagulation therapy. Continue aspirin 81 mg daily and Plavix 75 mg daily CAD with prior stents: Continue aspirin and Plavix. History of kidney transplant on antirejection medication: We will continue with his antirejection medication. Diabetes mellitus type 2: Accu-Cheks in place. GERD: Continue Protonix 40 mg daily Essential tremor: Continue with his medication primidone 50 mg 3 times a day. Depression: Continue home medication Cymbalta 30 mg daily Hyperlipidemia: Continue Crestor 10 mg daily Chronic diarrhea: Continue cholestyramine twice daily. We will also continue with lactobacillus. Patient is seen by GI as an outpatient Code Status: Full Code DVT prophylaxis: SCD Advanced Care Planning-30 minutes: Patient agreeable to skilled placement. Await approval for skilled placement.
--- NOTE | 2021-03-18 15:15 | EKG ---
Test Date: 2021-03-17 Test Time: 09:59:03 Sales Branch Manager: ARISTEO MEASUREMENT RESULTS: Intervals: Rate: 109 IA: QRSD: 148 QT: 376 QTc: 506 [place]: P: IA: QRS: -56 T: 0 INTERPRETIVE STATEMENTS: Atrial fibrillation with rapid ventricular response Left axis deviation Right bundle branch block Abnormal ECG Compared to ECG 03/14/2021 08:48:55 Left-axis deviation now present Myocardial infarct finding no longer present Electronically Signed On 03-18-21 15:14:40 [employer] by Dov Michel
[2021-03-18] MEDS: FUROSEMIDE 40 MG/4 ML VIAL IV SCH (16:25)
[2021-03-18] MEDS: TAFLUPROST OPTH SCH (21:00)
[2021-03-19] MEDS: FUROSEMIDE 40 MG/4 ML VIAL IV SCH ×2 (04:06→17:56)
[2021-03-19 04:51] LABS: Absolute Lymphocytes (CBC) 0.2 K/uL (0.7-4.9); Hematocrit 31.3 % (39.6-49.0); Lymphocytes % 3.4 % (15.3-44.8); RBC Red Blood Cell Count 3.72 M/uL (4.33-5.43)
[2021-03-19 05:19] LABS: ALT/SGPT 22 U/L (12-78); AST/SGOT 11 U/L (15-37); Albumin 2.3 g/dL (3.4-5.0); Alkaline Phosphatase 98 U/L (45-117); BUN Blood Urea Nitrogen 24 mg/dL (7-18); Bicarbonate 29 mmol/L (21-32); Bilirubin Total 0.5 mg/dL (0.2-1.0); Glucose Level 163 mg/dL (74-106); Potassium 4.4 mmol/L (3.5-5.1); Protein, Total 6.5 g/dL (6.4-8.2); Sodium Level 135 mmol/L (136-145)
[2021-03-19] MEDS: INSULIN -REGULAR HUMAN 50 UNIT/0.5 ML ML SQ SCH ×4 (07:30→21:00)
[2021-03-19] MEDS: ARFORMOTEROL TARTRATE 15 MCG/2 ML VIAL.NEB NEB SCH ×2 (07:45→20:10)
[2021-03-19] MEDS: predniSONE 5 MG TAB PO SCH (09:00)
[2021-03-19] MEDS: Mycophenolate Mofetil [Mycophenolate Mofetil] 500 MG Tablet PO SCH ×2 (09:00→21:00)
[2021-03-19] MEDS: Cyclosporine [Restasis] Droperette OPTH SCH ×2 (09:00→20:59)
[2021-03-19] MEDS: BRIMONIDINE TARTRATE 0.15% 5 ML OPTH SCH ×2 (09:00→21:00)
--- NOTE | 2021-03-19 09:22 | P.PN ---
Subjective Date of Service: 03/19/21 Primary Care Provider: Dr. Almendarez; Pulm-Dr. Kitchen; Nephrology-[facility]; Card-Dr. Blackwell Chief Complaint: Fatigue, scrotal bleeding Subjective: No new changes, No C/O voiced (Feels better this morning, shortness of breath improving) Physical Examination - Vital Signs Temperature: 98.1 F Blood Pressure: 140/73 Pulse: 84 Respirations: 18 Pulse Ox (%): 97 Assessment And Plan Physician Review: Patient Assessed, Agree with Above Assessment and Plan Physician Review Additional Text: COVID: negative Chest x-ray: COMPARISON: Chest Single View dated 11/02/2020; Chest Single View dated 10/29/2020; Chest Single View dated 07/21/2020; Chest Single View dated 07/18/2020; Stone Protocol dated 10/29/2020; Thorax Wo Con dated 07/18/2020 FINDINGS: Lines: None. Lungs: Right perihilar consolidation. Pleural: No significant pleural effusions or pneumothorax. Cardiac: Cardiomegaly. Aortic valve prosthesis. Bones: No acute fractures. Remote left-sided rib fractures. IMPRESSION: Right perihilar consolidative process could reflect pneumonia. Recommend radiographic follow-up to ensure resolution. Underlying mass less likely given time course of the development (new since 11/02/2020). CT chest/abdomen pelvis: COMPARISON: No comparisons TECHNIQUE: CT of the chest, abdomen, and pelvis was performed. All CT scans are performed using dose optimization technique as appropriate and may include automated exposure control or mA/KV adjustment according to patient size. FINDINGS: Thorax: Chest Wall: No abnormal mass Lungs: Consolidative airspace disease within the anterior aspect of the right upper lobe. Scattered small pulmonary nodules are noted bilaterally including several right lower lobe which are new from prior but likely benign. Pleura: Small right pleural effusion. Mona/Mediastinum: No lymphadenopathy. Aorta/Pulmonary Arteries: Aortic valve prosthesis. Prominent pulmonary artery is could reflect pulmonary artery hypertension. Heart: Cardiomegaly. Left main and three-vessel coronary artery disease. Abdomen/Pelvis: Liver: Hepatic steatosis. Biliary: Cholecystectomy Stomach: Surgical changes at the gastric antrum. Duodenum: No significant focal abnormality. Pancreas: Pancreatic atrophy. Spleen: No significant abnormality. Adrenal: No suspicious lesions. Kidney/ureter: Atrophic [place] kidneys. Bilateral renal lesions which are too small to characterize are statistically benign. Right iliac fossa renal transplant. No renal calculi. No hydronephrosis. Retroperitoneum: No retroperitoneal adenopathy. Vascular: Atherosclerosis . Bowel: No significant focal abnormality. Peritoneum: No ascites or free air. Fat containing ventral hernias. Bladder: Grossly unremarkable. Reproductive: Scrotal edema. Benign fluid attenuation 3.4 cm structure located medially within the left leg of doubtful clinical significance. Bones: Right hip arthroplasty. No acute fractures seen. Remote left-sided rib fractures. IMPRESSION: 1. Right upper lobe consolidative process most likely representing pneumonia rather than inflammatory. Atypical infectious processes should be considered if immune suppressed. 2. No acute intra-abdominal abnormality. Follow up CXR 03/15/2021: COMPARISON: Chest Single View dated 03/14/2021; Chest Single View dated 11/02/2020; Chest Single View dated 10/29/2020; Chest Single View dated 07/21/2020; Chest Abdomen Pelvis W Cont dated 03/14/2021 FINDINGS: Lines: None. Lungs: Consolidative airspace disease in the right upper lobe is similar. Increasing opacities within the medial aspect of the right lung base. Pleural: No significant pleural effusions or pneumothorax. Cardiac: Cardiomegaly. Aortic valve prosthesis. Coronary artery calcifications. Bones: No acute fractures. IMPRESSION: Consolidative pneumonia in the right upper lobe is similar but worsened aeration of the right lung base. Physical Exam: GENERAL: The patient is a well-developed, well-nourished, in no apparent distress. Alert and oriented x3. VITAL SIGNS: Reviewed HEENT: Mouth appears dry. Head atraumatic NECK: Supple. No carotid bruits. No lymphadenopathy or thyromegaly. LUNGS: Clear anteriorly. Currently on 3 L per nasal cannula, still mild intermittent wheezing HEART: A. fib rate controlled ABDOMEN: Soft, nontender, and nondistended. Positive bowel sounds. No he patosplenomegaly was noted. EXTREMITIES: Without any cyanosis, clubbing, rash, lesions or peripheral edema. NEUROLOGIC: The patient is oriented to person, place and time. Strength and sensation are grossly intact. Face is symmetric. SKIN: Normal color, turgor and temperature. No ulcerations or rashes noted. Scrotum: Scrotal varicosities noted. No active bleeding noted. Dried scab to the left pelvic skin region. Impression: Fatigue secondary to right upper lobe pneumonia COPD on chronic steroid Scrotal bleeding likely from scrotal varicosities Hypertension Chronic diastolic CHF Atrial fibrillation with history of watchman procedure CAD with prior stents History of kidney transplant on antirejection medication Diabetes mellitus type 2 GERD Essential tremor Depression Chronic diarrhea Plan: Fatigue secondary to right upper lobe pneumonia: Improving to 3 L Acute dyspnea yesterday likely due to fluid overload improved with increased diuresis Continue home dose of prednisone since resolved wheezing now Continue duo nebs - Awaiting approval for skilled placement. Follow with social services coordinator. COPD on chronic steroid: Stable symptoms continue steroid continue COPD medicationBrovana/albuterol/Atrovent. Scrotal bleeding likely from scrotal varicosities: No active bleeding noted. Continue Lubriderm and nystatin. Continue wound care recommendations Hypertension: Improving, status post recently increase metoprolol We will continue to monitor and address. Chronic diastolic CHF: Status post recent acute exacerbation, improving with IV diuretics with Lasix 40 mg twice daily now Continue spironolactone Continue fluid restriction Atrial fibrillation with history of watchman procedure: Continue with digoxin 125 mcg daily. Patient no longer on chronic anticoagulation therapy. Continue aspirin 81 mg daily and Plavix 75 mg daily CAD with prior stents: Continue aspirin and Plavix. History of kidney transplant on antirejection medication: We will continue with his antirejection medication. Diabetes mellitus type 2: Accu-Cheks in place. GERD: Continue Protonix 40 mg daily Essential tremor: Continue with his medication primidone 50 mg 3 times a day. Depression: Continue home medication Cymbalta 30 mg daily Hyperlipidemia: Continue Crestor 10 mg daily Chronic diarrhea: Continue cholestyramine twice daily. We will also continue with lactobacillus. Patient is seen by GI as an outpatient Code Status: Full Code DVT prophylaxis: SCD Advanced Care Planning-30 minutes: Patient agreeable to skilled placement. Await approval for skilled placement. Time Spent Managing PTS Care (In Minutes): 35
[2021-03-19] MEDS: CHOLESTYRAMINE/ASP 4 GM/PKT PO SCH ×2 (09:52→17:57)
[2021-03-19] MEDS: DIGOXIN 0.125 MG TABLET PO SCH (09:53)
[2021-03-19] MEDS: ASPIRIN EC 81 MG TAB PO SCH (09:53)
[2021-03-19] MEDS: allopurinoL 100 MG TAB PO SCH ×2 (09:53→21:01)
[2021-03-19] MEDS: SPIRONOLACTONE 25 MG TABLET PO SCH (09:53)
[2021-03-19] MEDS: LABETALOL HCL 100 MG TAB PO SCH ×2 (09:53→21:02)
[2021-03-19] MEDS: ROSUVASTATIN 10 MG TAB PO SCH (09:53)
[2021-03-19] MEDS: levoFLOXacin 750 MG TAB PO SCH (09:54)
[2021-03-19] MEDS: MONTELUKAST 10 MG TAB PO SCH (09:54)
[2021-03-19] MEDS: DULOXETINE 30 MG CAP PO SCH (09:54)
[2021-03-19] MEDS: THIAMINE HCL 100 MG TABLET PO SCH (09:54)
[2021-03-19] MEDS: CLOPIDOGREL 75 MG TABLET PO SCH (09:54)
[2021-03-19] MEDS: PANTOPRAZOLE 40MG TABLET PO SCH ×2 (09:54→21:01)
[2021-03-19] MEDS: FOLIC ACID 1 MG TABLET PO SCH (09:54)
[2021-03-19] MEDS: PRIMIDONE 50 MG TAB PO SCH ×3 (09:54→21:01)
[2021-03-19] MEDS: Tacrolimus [Prograf] 1 MG Capsule PO SCH ×2 (09:56→21:05)
[2021-03-19] MEDS: NYSTATIN 100MU/GM CREAM 15GM TOP SCH ×2 (09:57→21:00)
[2021-03-19] MEDS: TAFLUPROST OPTH SCH (21:00)
[2021-03-20] MEDS: FUROSEMIDE 40 MG/4 ML VIAL IV SCH (03:45)
[2021-03-20 05:48] LABS: Absolute Lymphocytes (CBC) 0.6 K/uL (0.7-4.9); Hematocrit 32.3 % (39.6-49.0); Lymphocytes % 7.9 % (15.3-44.8); MPV 8.7 fL (7.6-11.3); RBC Red Blood Cell Count 3.85 M/uL (4.33-5.43)
[2021-03-20 06:14] LABS: ALT/SGPT 35 U/L (12-78); AST/SGOT 23 U/L (15-37); Albumin 2.4 g/dL (3.4-5.0); Alkaline Phosphatase 108 U/L (45-117); BUN Blood Urea Nitrogen 29 mg/dL (7-18); Bicarbonate 31 mmol/L (21-32); Bilirubin Total 0.5 mg/dL (0.2-1.0); Glucose Level 112 mg/dL (74-106); Potassium 3.6 mmol/L (3.5-5.1); Protein, Total 6.5 g/dL (6.4-8.2); Sodium Level 136 mmol/L (136-145)
[2021-03-20] MEDS: INSULIN -REGULAR HUMAN 50 UNIT/0.5 ML ML SQ SCH ×2 (07:30→11:30)
[2021-03-20] MEDS: ARFORMOTEROL TARTRATE 15 MCG/2 ML VIAL.NEB NEB SCH (08:00)
[2021-03-20] MEDS: CHOLESTYRAMINE/ASP 4 GM/PKT PO SCH (08:27)
[2021-03-20] MEDS ORDERED: POTASSIUM CL SA 10 MEQ TAB PO ONE (09:00)
[2021-03-20] MEDS: allopurinoL 100 MG TAB PO SCH (09:51)
[2021-03-20] MEDS: CLOPIDOGREL 75 MG TABLET PO SCH (09:52)
[2021-03-20] MEDS: MONTELUKAST 10 MG TAB PO SCH (09:52)
[2021-03-20] MEDS: THIAMINE HCL 100 MG TABLET PO SCH (09:52)
[2021-03-20 09:53] VITALS: O2SAT 98
[2021-03-20] MEDS: FOLIC ACID 1 MG TABLET PO SCH (09:53)
[2021-03-20] MEDS: DIGOXIN 0.125 MG TABLET PO SCH (09:53)
[2021-03-20] MEDS: ASPIRIN EC 81 MG TAB PO SCH (09:53)
[2021-03-20] MEDS: PANTOPRAZOLE 40MG TABLET PO SCH (09:53)
[2021-03-20] MEDS: ROSUVASTATIN 10 MG TAB PO SCH (09:54)
[2021-03-20] MEDS: predniSONE 5 MG TAB PO SCH (09:54)
[2021-03-20] MEDS: SPIRONOLACTONE 25 MG TABLET PO SCH (09:54)
[2021-03-20] MEDS: DULOXETINE 30 MG CAP PO SCH (09:54)
[2021-03-20] MEDS: NYSTATIN 100MU/GM CREAM 15GM TOP SCH (09:55)
[2021-03-20] MEDS: PRIMIDONE 50 MG TAB PO SCH ×2 (09:55→14:47)
[2021-03-20] MEDS: levoFLOXacin 750 MG TAB PO SCH (09:55)
[2021-03-20] MEDS: Mycophenolate Mofetil [Mycophenolate Mofetil] 500 MG Tablet PO SCH (09:56)
[2021-03-20] MEDS: Tacrolimus [Prograf] 1 MG Capsule PO SCH (09:56)
[2021-03-20] MEDS: LABETALOL HCL 100 MG TAB PO SCH (09:57)
[2021-03-20] MEDS: BRIMONIDINE TARTRATE 0.15% 5 ML OPTH SCH (09:57)
[2021-03-20] MEDS: Cyclosporine [Restasis] Droperette OPTH SCH (09:57)
[2021-03-20 15:32] VITALS: BP 148/76; TEMP 97.4
== END 2021-03-20 16:10 | DRG 194 ==
LOC: ER 07:43 → ERHOLD 10:32 → 2ND 13:05 → OBSVTOIN 03-15 12:21
PROVIDERS: ADMIT Family Medicine; ATTEND Family Medicine
DX: J18.9 Pneumonia, unspecified organism (principal); J44.0 Chronic obstructive pulmonary disease with (acute) lower respiratory infection; I50.32 Chronic diastolic (congestive) heart failure; Z94.0 Kidney transplant status; I86.1 Scrotal varices; I11.0 Hypertensive heart disease with heart failure; I48.91 Unspecified atrial fibrillation; I25.10 Atherosclerotic heart disease of native coronary artery without angina pectoris; E11.9 Type 2 diabetes mellitus without complications; K21.9 Gastro-esophageal reflux disease without esophagitis; G25.0 Essential tremor; F32.A Depression, unspecified; K52.9 Noninfective gastroenteritis and colitis, unspecified; Z95.5 Presence of coronary angioplasty implant and graft; Z79.51 Long term (current) use of inhaled steroids; Z88.0 Allergy status to penicillin; Z88.6 Allergy status to analgesic agent; Z23 Encounter for immunization; Z20.822 Contact with and (suspected) exposure to COVID-19
CPT/HCPCS: 0241U; 36415; 71045; 71260; 74177; 80048; 80053; 80076; 81003; 81015; 82947; 83605; 83735; 83880; 84145; 84484; 85025; 85610; 87040; 87077; 87186; 87205; 90471; 90732; 93005; 94640; 94760; 96365; 96366; 96375; 97110; 97116; 97161; 97530; 99251; 99285; A6010; G0378; J1940; J2930; J3475; J7030; J7040; J7512; J7605; Q9967

== ENCOUNTER 2021-09-28 12:07 | Day surgery (SDC) | payer OTHER ==
[2021-09-20 12:41] LABS: Absolute Lymphocytes (CBC) 0.4 K/uL (0.7-4.9); Hematocrit 37.1 % (39.6-49.0); Lymphocytes % 5.7 % (15.3-44.8); MCV 84.5 fL (80-100); MPV 8.9 fL (7.6-11.3); RBC Red Blood Cell Count 4.39 M/uL (4.33-5.43)
[2021-09-20 12:43] LABS: Protime INR 1.05
[2021-09-20 12:59] LABS: Potassium 4.2 mmol/L (3.5-5.1)
[2021-09-20 13:18] LABS: SARS-CoV-2 Antigen Rapid Res Negative (Negative)
[2021-09-20 13:48] LABS: Platelet Estimate ADEQ; White Blood Cell Scan OK (OK)
[2021-09-20 13:49] LABS: Anisocytosis 2+; Blood Morphology Comment NOTED (NOT SEEN)
[~2021-09-28 12:07] MED LIST: HEPA 1000U/500MLS 2,000 UNIT/1,000 ML BAG IV ONE; NA CHLORIDE 0.9% 500 ML ONE
[2021-09-28 12:46] VITALS: TEMP 97
[2021-09-28] MEDS ORDERED: FENTANYL CITR 100 MCG/2 ML ONE (13:48)
[2021-09-28] MEDS ORDERED: NITROGLYCERIN 100 MCG/ML SYR (for cath lab use only) IV ONE (13:49)
[2021-09-28] MEDS ORDERED: LIDOCAINE 1% MPF 5 ML VIAL ONE (13:49)
[2021-09-28] MEDS ORDERED: MIDAZOLAM HCL 2 MG/2 ML INJ ONE (13:49)
[2021-09-28] MEDS ORDERED: HEPARIN 10,000 UNIT/10 ML VIAL IV ONE (13:49)
[2021-09-28] MEDS ORDERED: ATROPINE SULF 1 MG/10 ML SYR IV ONE (13:49)
[2021-09-28 16:39] VITALS: BP 162/88; O2SAT 95
--- NOTE | 2021-09-29 02:51 | OP ---
Date of Procedure: 09/28/2021 Surgeon: CARIDAD BAKER Procedure Performed: 1.Selective coronary angiogram. 2.Left heart catheterization. Indication: Abnormal stress test and no coronary artery disease. Access: Right femoral artery 6-[place] closed with StarClose. Complications: None. Bleeding: Less than 10 mL. Anesthesia: Total sedation time was 25 minutes, used fentanyl and versed. Description Of Procedure: After risks, benefits, and alternatives were explained, the patient agreed to procedure and signed informed consent. The patient was brought into the cardiac catheterization laboratory, prepped and draped in usual sterile fashion. We accessed right femoral artery using micr opuncture kit, fluoroscopy, and ultrasound guidance, we placed 6-[place] pinnacle sheath and took a 6- [place] JL4 catheter. Aortic root engaged left main, took standard views, and exchanged for 6-[place] JR4 catheter, engaged the RCA, took standard views and the JR4 was advanced over the wire across the aortic valve and measured the LVEDP and pullback did not record any gradient and then removed the cat heter and the sheath. StarClose was used for closure with good hemostasis. Findings: 1.Left main is normal. 2.LAD, proximal. The stent is widely patent. Then some luminal irregularity throughout the LAD. 3.Left circumflex, mild luminal irregularity throughout. 4.RCA is a dominant vessel with diffuse plaque proximal to mid 60% to 70% and then distally close to the distal portion is totally occluded as the COMMUNITY OUTREACH COORDINATOR 100%, but there are excellent collaterals from the LAD and left circumflex filling all the way to the PDA and the PLV. 5.LVEDP is borderline at 10-12 mmHg. Conclusion: 1.Widely patent LAD stent. 2.Distal RCA COMMUNITY OUTREACH COORDINATOR with excellent collaterals from left to right with normal ejection fraction. LVEDP is being normal at 10 mmHg. Plan: Continue medical therapy as the patient's EF is normal and has no symptoms and appears to be v rony well vascularized. SR/MODL Voice ID: [id number] Report ID: [id number]
== END 2021-09-28 16:40 | disposition home or self-care (01) ==
LOC: CCL 12:07
PROVIDERS: ATTEND Internal Medicine
DX: I25.10 Atherosclerotic heart disease of native coronary artery without angina pectoris (principal); I25.82 Chronic total occlusion of coronary artery; T82.855A Stenosis of coronary artery stent, initial encounter; I35.2 Nonrheumatic aortic (valve) stenosis with insufficiency; I48.91 Unspecified atrial fibrillation; I10 Essential (primary) hypertension; E78.5 Hyperlipidemia, unspecified; E11.9 Type 2 diabetes mellitus without complications; Z79.82 Long term (current) use of aspirin; Z79.4 Long term (current) use of insulin; Z79.52 Long term (current) use of systemic steroids; Z79.899 Other long term (current) drug therapy; Z88.0 Allergy status to penicillin; Z88.8 Allergy status to other drugs, medicaments and biological substances; Z20.822 Contact with and (suspected) exposure to COVID-19
CPT/HCPCS: 85025; 80048; 36415; 85610; 85730; 93458; 76937; 87811; C1893; Q9966; J2250; J3010; J7040; J1644

== ENCOUNTER 2022-01-08 13:53 | Inpatient (IN) | payer OTHER, SELFPAY ==
--- NOTE | 2022-01-08 14:40 | RAD REPORT ---
EXAM DESCRIPTION: RAD - Chest Single View - 01/08/2022 2:22 pm CLINICAL HISTORY: COUGH Chest pain. COMPARISON: Chest Single View dated 03/15/2021; Chest Single View dated 03/14/2021; Chest Single View dated 11/02/2020; Chest Single View dated 10/29/2020 FINDINGS: Portable technique limits examination quality. Moderate bilateral pulmonary opacities are present, greatest in the right lung base, likely pneumonia . The pneumonia pattern may be superimposed on moderate chronic CHF. The heart is enlarged in size.
[2022-01-08] MEDS ORDERED: LEVALBUTEROL 1.25 MG/3 ML NEB ONE (15:25)
[2022-01-08] MEDS ORDERED: NA CHLORIDE 0.9% 500 ML ONE (15:43)
[2022-01-08] MEDS ORDERED: MAGNESIUM SULFATE 1 gm IVPB 1 GM/100 ML BAG IV ONE (15:43)
[2022-01-08] MEDS ORDERED: METHYLPREDNISOLONE 125 MG INJ ONE (15:43)
[2022-01-08 15:52] LABS: Absolute Lymphocytes (CBC) 0.2 K/uL (0.7-4.9); Hematocrit 42.7 % (39.6-49.0); Lymphocytes % 5.9 % (15.3-44.8); MCV 91.2 fL (80-100); MPV 8.5 fL (7.6-11.3); RBC Red Blood Cell Count 4.68 M/uL (4.33-5.43)
--- NOTE | 2022-01-08 16:00 | ER ---
Nurse's Notes [facility] Name: Yunior Lewis Age: 76 yrs Sex: Male : 1945 Arrival Date: 01/08/2022 Time: 13:55 Bed 20 Private MD: Diagnosis: Pneumonia, unspecified organism-Bilateral;Hypoxemia;COPD/ Chronic obstructive pulmonary disease with (acute) exacerbation;COPD/ Chronic obstructive pulmonary disease with acute lower respiratory infection;Pneumonia due to SARS-associated coronavirus Presentation: 01/08 13:55 Initial Sepsis Screen: Does the patient meet any 2 criteria? No. Patient's initial eh3 sepsis screen is negative. Does the patient have a suspected source of infection? No. Patient's initial sepsis screen is negative. Risk Assessment: Do you want to hurt yourself or someone else? Patient reports no desire to harm self or others. Onset of symptoms was December 26, 2021. 13:55 Acuity: JAQUAN 3 eh3 14:03 Chief complaint: EMS states: cough for 2 weeks, no other resp symptoms, pt c/o diarrhea eh3 for 3 days. Pt's and he hasn't been able to eat much for the past few days. Coronavirus screen: Vaccine status: Patient reports receiving the 2nd dose of the covid vaccine. Ebola Screen: No symptoms or risks identified at this time. 14:03 Method Of Arrival: EMS: [facility] Triage Assessment: 14:05 General: Appears in no apparent distress. comfortable, Behavior is calm, cooperative, eh3 appropriate for age. Pain: Denies pain. EENT: No signs and/or symptoms were reported regarding the EENT system. Neuro: Neuro: Level of Consciousness is awake, alert, obeys commands, Oriented to person, place, time, situation. Cardiovascular: Capillary refill < 3 seconds Patient's skin is warm and dry. Respiratory: Airway is patent Respiratory effort is even, labored, Respiratory pattern is regular, symmetrical. GI: Abdomen is round non-distended, Reports diarrhea, lack of appetite. : No signs and/or symptoms were reported regarding the genitourinary system. Derm: No signs and/or symptoms reported regarding the dermatologic system. Musculoskeletal: No signs and/or symptoms reported regarding the musculoskeletal system. Historical: - Allergies: 14:05 Demerol; eh3 14:05 NSAIDS; eh3 14:05 PENICILLINS; eh3 14:05 Warfarin; eh3 - PMHx: 14:05 CHF; COPD; Diabetes - IDDM; gastritis; Heart Murmur; Hyperlipidemia; Hypertension; eh3 Sleep Apnea; - PSHx: 14:05 Kidney Transplant; Watchman; eh3 - Immunization history:: Adult Immunizations up to date. - Social history:: Smoking status: unknown. - Family history:: not pertinent. - Hospitalizations: : No recent hospitalization is reported. Screenin:09 Abuse screen: Denies threats or abuse. Denies injuries from another. Nutritional eh3 screening: No deficits noted. Tuberculosis screening: No symptoms or risk factors identified. Fall Risk None identified. Assessment: 14:09 Reassessment: No changes from previously documented assessment. See triage assessment. eh3 15:00 Reassessment: Patient and/or family updated on plan of care and expected duration. Pain eh3 level reassessed. Pt is A\\T\\O x 4, equal respirations, denies pain. 16:00 Reassessment: No changes from previously documented assessment. Patient and/or family eh3 updated on plan of care and expected duration. Pain level reassessed. 17:00 Reassessment: No changes from previously documented assessment. Patient and/or family eh3 updated on plan of care and expected duration. Pain level reassessed. 01/09 13:39 Reassessment: attempted to call report to second floor. Karina RN at lunch. kc6 Vital Signs: 01/08 13:55 BP 157 / 92; Pulse 75; Resp 16; Temp 98.1(O); Pulse Ox 100% 4 lpm ; eh3 15:00 BP 137 / 63; Pulse 73; Resp 16; Pulse Ox 99% on 2.5 lpm NC; eh3 16:00 BP 155 / 84; Pulse 77; Resp 16; Pulse Ox 99% on 2 lpm NC; eh3 ED Course: 13:55 Patient arrived in ED. eh3 13:59 Conrado Stallings MD is Attending Physician. rn 14:05 Triage completed. eh3 14:05 Arm band placed on right wrist. eh3 14:09 Dilcia Burnett, BRENDA is Primary Nurse. eh3 14:09 Patient has correct armband on for positive identification. Bed in low position. Call eh3 light in reach. Side rails up X2. Client placed on continuous cardiac and pulse oximetry monitoring. NIBP monitoring applied. Door closed. Noise minimized. Warm blanket given. Pillow given. 14:23 Chest Single View XRAY In Process Unspecified. EDMS 14:26 Missed attempt(s): 20 gauge in right forearm. Bleeding controlled, band aid applied, eh3 catheter tip intact. 15:08 Missed attempt(s): 20 gauge in left forearm. Bleeding controlled, band aid applied, eh3 catheter tip intact. 15:24 COVID-19/FLU A+B/RSV (Document "Date of Onset" if Symptomatic) Sent. eh3 15:44 Initial lab(s) drawn, by vt, sent to lab. Inserted saline lock: 22 gauge in right iw antecubital area, using aseptic technique. Blood collected. 15:59 Carmen Jean Baptiste MD is Hospitalizing Provider. rn 16:00 No provider procedures requiring assistance completed. Patient admitted, IV remains in eh3 place. Administered Medications: 14:55 Drug: Xopenex (levalbuterol) (3) 1.25 mg Route: Inhalation; eh3 16:02 Follow up: Response: No adverse reaction eh3 15:45 Drug: SOLU-Medrol (methylPrednisoLONE) 125 mg Route: IVP; Site: right forearm; eh3 17:12 Follow up: Response: No adverse reaction eh3 15:45 Drug: NS 0.9% 500 ml Route: IV; Rate: bolus; Site: right forearm; eh3 17:12 Follow up: IV Status: Completed infusion; IV Intake: 500ml eh3 15:50 Drug: Magnesium Sulfate 1 grams Route: IVPB; Infused Over: 1 hrs; Site: right forearm; eh3 17:12 Follow up: Response: No adverse reaction; IV Status: Completed infusion; IV Intake: eh3 100ml 17:16 Drug: LevaQUIN (levofloxacin) 750 mg Volume: 150 ml; Route: IVPB; Infused Over: 90 eh3 mins; Site: right forearm; 18:46 Follow up: Response: No adverse reaction; IV Status: Completed infusion; IV Intake: eh3 150ml Medication: 16:00 VIS not applicable for this client. eh3 Intake: 17:12 IV: 500ml; Total: 500ml. eh3 17:12 IV: 100ml; Total: 600ml. eh3 18:46 IV: 150ml; Total: 750ml. eh3 Outcome: 16:00 Decision to Hospitalize by Provider. rn 16:00 Admitted to ER Hold. Please see [facility] for further documentation. eh3 16:00 Condition: stable 16:00 Instructed on the need for admit. 01/09 14:49 Patient left the ED. iw Signatures: Dispatcher [employer] EDMS Dede Lockhart RN RN Conrado Stallings MD MD rn Hall, Erin, RN RN [facility] Tyra Dent RN RN kc6 Corrections: (The following items were deleted from the chart) 01/08 15:21 15:21 Missed attempt(s): 20 gauge in right forearm. Bleeding controlled, band aid eh3 applied, catheter tip intact. 3 16:01 13:45 NS 0.9% 500 ml IV at bolus in right forearm eh3 eh3
--- NOTE | 2022-01-08 16:00 | EDPHYS ---
Physician Documentation [facility] Name: Yunior Lewis Age: 76 yrs Sex: Male : 1945 Arrival Date: 01/08/2022 Time: 13:55 Bed 20 Private MD: ED Physician Conrado Stallings HPI: 01/08 15:41 This 76 yrs old Male presents to ER via EMS with complaints of Non-Productive Cough. rn 15:41 The patient or guardian reports cough, flu symptoms. rn 15:41 Onset: The symptoms/episode began/occurred 2 week(s) ago. Severity of symptoms: At rn their worst the symptoms were moderate, in the emergency department the symptoms are unchanged. Modifying factors: The symptoms are alleviated by nothing, the symptoms are aggravated by nothing. Associated signs and symptoms: Pertinent positives: fever, Pertinent negatives: chest pain. The patient has experienced similar episodes in the past. The patient has not recently seen a physician. Historical: - Allergies: 14:05 Demerol; eh3 14:05 NSAIDS; eh3 14:05 PENICILLINS; eh3 14:05 Warfarin; eh3 - PMHx: 14:05 CHF; COPD; Diabetes - IDDM; gastritis; Heart Murmur; Hyperlipidemia; Hypertension; eh3 Sleep Apnea; - PSHx: 14:05 Kidney Transplant; Watchman; eh3 - Immunization history:: Adult Immunizations up to date. - Social history:: Smoking status: unknown. - Family history:: not pertinent. - Hospitalizations: : No recent hospitalization is reported. 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 Exam: 15:41 Constitutional: This is a well developed, well nourished patient who is awake, alert, rn moderate tachypnea Head/Face: Normocephalic, atraumatic. ENT: dry MM, no stridor Cardiovascular: Regular rate and rhythm. No pulse deficits. Respiratory: + moderate tachypnea, faint wheezing bilaterally, no retractions Abdomen/GI: Soft, non-tender Skin: Warm, dry MS/ Extremity: Pulses equal, no cyanosis. Neuro: Awake and alert, GCS 15 16:10 ECG was reviewed by the Attending Physician. rn Vital Signs: 13:55 BP 157 / 92; Pulse 75; Resp 16; Temp 98.1(O); Pulse Ox 100% 4 lpm ; eh3 15:00 BP 137 / 63; Pulse 73; Resp 16; Pulse Ox 99% on 2.5 lpm NC; eh3 16:00 BP 155 / 84; Pulse 77; Resp 16; Pulse Ox 99% on 2 lpm NC; eh3 MDM: 13:59 Patient medically screened. rn 15:41 Differential Diagnosis: Bronchitis Influenza Upper Respiratory Infection Viral Syndrome rn Pneumonia Other COPD exacerbation. Data reviewed: vital signs, nurses notes, lab test result(s), radiologic studies, plain films, and as a result, I will admit patient. Counseling: I had a detailed discussion with the patient and/or guardian regarding: the historical points, exam findings, and any diagnostic results supporting the discharge/admit diagnosis, lab results, radiology results, the need for further work-up and treatment in the hospital. Response to treatment: the patient's symptoms have markedly improved after treatment, and as a result, I will admit patient. Admission orders: after a detailed discussion of the patient's condition and case, the admit orders are written by me. 01/08 14:00 Order name: Blood Culture Adult (2) rn 01/08 14:00 Order name: CBC with Diff; Complete Time: 16:23 rn 01/08 14:00 Order name: CMP; Complete Time: 16:23 rn 01/08 14:00 Order name: Lactate; Complete Time: 16:23 rn 01/08 14:00 Order name: Protime (+inr); Complete Time: 16:23 rn 01/08 14:00 Order name: Ptt, Activated; Complete Time: 16:23 rn 01/08 14:00 Order name: COVID-19/FLU A+B/RSV (Document "Date of Onset" if Symptomatic); Complete rn Time: 16:01/08 15:46 Order name: Glucose, Ancillary Testing; Complete Time: 16:23 EDMS 01/09 00:59 Order name: Phosphorus EDMS 01/09 00:59 Order name: Magnesium EDMS 01/09 01:02 Order name: NT PRO-BNP EDMS 01/09 01:02 Order name: Urinalysis EDMS 01/09 01:02 Order name: Basic Metabolic Panel EDMS 01/09 01:02 Order name: Basic Metabolic Panel EDMS 01/08 14:00 Order name: Chest Single View XRAY; Complete Time: 14:50 rn 01/08 14:00 Order name: Accucheck; Complete Time: 15:35 rn 01/08 14:00 Order name: Cardiac monitoring; Complete Time: 15:21 rn 01/08 14:00 Order name: EKG - Nurse/Tech; Complete Time: 15:21 rn 01/08 14:00 Order name: IV Saline Lock - Large Bore; Complete Time: 16:25 rn 01/08 14:00 Order name: Labs collected and sent; Complete Time: 16:25 rn 01/08 14:00 Order name: O2 Per Protocol; Complete Time: 14:10 rn 01/09 01:02 Order name: CBC with Automated Diff EDMS 01/09 01:02 Order name: CBC with Automated Diff EDMS 01/09 04:48 Order name: CBC Smear Scan EDMS 01/09 08:10 Order name: Glucose, Ancillary Testing EDMS 01/08 14:00 Order name: O2 Sat Monitoring; Complete Time: 14:10 rn 01/08 14:00 Order name: Vital Signs; Complete Time: 14:10 rn EC:10 Rate is 76 beats/min. Rhythm is irregularly irregular. QRS interval is prolonged at 142 rn msec. QT interval is normal. No Q waves. T waves are Normal. No ST changes noted. Clinical impression: Atrial Fibrillation. Interpreted by me. Reviewed by me. Administered Medications: 14:55 Drug: Xopenex (levalbuterol) (3) 1.25 mg Route: Inhalation; eh3 16:02 Follow up: Response: No adverse reaction eh3 15:45 Drug: SOLU-Medrol (methylPrednisoLONE) 125 mg Route: IVP; Site: right forearm; eh3 17:12 Follow up: Response: No adverse reaction eh3 15:45 Drug: NS 0.9% 500 ml Route: IV; Rate: bolus; Site: right forearm; eh3 17:12 Follow up: IV Status: Completed infusion; IV Intake: 500ml eh3 15:50 Drug: Magnesium Sulfate 1 grams Route: IVPB; Infused Over: 1 hrs; Site: right forearm; eh3 17:12 Follow up: Response: No adverse reaction; IV Status: Completed infusion; IV Intake: eh3 100ml 17:16 Drug: LevaQUIN (levofloxacin) 750 mg Volume: 150 ml; Route: IVPB; Infused Over: 90 eh3 mins; Site: right forearm; 18:46 Follow up: Response: No adverse reaction; IV Status: Completed infusion; IV Intake: eh3 150ml Disposition Summary: 01/08/22 16:00 Hospitalization Ordered Hospitalization Status: Inpatient Admission rn Provider: Carmen Jean Baptiste rn Condition: Stable rn Problem: new rn Symptoms: have improved rn Bed/Room Type: Standard rn Location: Telemetry/MedSurg (Inpatient)(01/09/22 13:29) bd Room Assignment: [facility](01/09/22 13:29) Diagnosis - Pneumonia, unspecified organism - Bilateral rn - Hypoxemia rn - COPD/ Chronic obstructive pulmonary disease with (acute) exacerbation rn - COPD/ Chronic obstructive pulmonary disease with acute lower respiratory infection rn - Pneumonia due to SARS-associated coronavirus rn Forms: - Medication Reconciliation Form rn - SBAR form rn Signatures: Dispatcher [employer] EDAbena Vicente Roman, MD MD rn Garcia, Cindy, RN RN cg Hall, Erin, RN RN 3 Corrections: (The following items were deleted from the chart) 20:27 16:00 Telemetry/MedSurg (Inpatient) rn cg 20:27 16:00 rn cg 01/09 13:29 01/08 20:27 [facility] ER HOLD cg bd 01/09 13:29 01/08 20:27 ERHOLD- cg bd
[2022-01-08 16:02] LABS: Protime INR 0.94
[2022-01-08 16:09] LABS: Albumin 3.1 g/dL (3.4-5.0); Bilirubin Total 0.5 mg/dL (0.2-1.0); Potassium 4.6 mmol/L (3.5-5.1); Protein, Total 6.8 g/dL (6.4-8.2)
[2022-01-08 16:18] LABS: SARS-COV-2 RT PCR POSITIVE (NEGATIVE)
[2022-01-08] MEDS ORDERED: Levofloxacin 750mg IV 750 MG/150 ML BAG IV ONE (17:14)
[2022-01-08] MEDS ORDERED: HYDROCODONE/APAP 5/325 MG TAB PO PRN (17:28)
[2022-01-08] MEDS ORDERED: ACETAMINOPHEN 325 MG TABLET PO PRN (17:29)
[2022-01-08] MEDS ORDERED: ONDANSETRON 4 MG/2 ML VIAL IV PRN (17:35)
[2022-01-08] MEDS ORDERED: [UNRECOGNIZED DRUG - OTHER] OPTH PRN (17:38)
[2022-01-08] MEDS ORDERED: GLYCERIN OPTH PRN (17:38)
[2022-01-08] MEDS ORDERED: CARBOXYMETHYLCELLULOS OPTH PRN (17:38)
[2022-01-08] MEDS ORDERED: HYDRALAZINE HCL 20 MG/ML VIAL IV PRN (17:41)
--- NOTE | 2022-01-08 17:46 | P.HP ---
Certification for Inpatient Patient admitted to: Inpatient With expected LOS: >2 Midnights Patient will require the following post-hospital care: None Practitioner: I am a practitioner with admitting privileges, knowledge of patient current condition, hospital course, and medical plan of care. Services: Services provided to patient in accordance with Admission requirements found in Title 42 Section 412.3 of the Code of Federal Regulations Patient History Date of Service: 01/08/22 Reason for admission: SOB History of Present Illness: Patient is a 76-year-old male with a past medical history significant for COPD, kidney transplant, DM2, hyperlipidemia, hypertension, sleep apnea, CHF, gout who presents with complaint of shortness of breath and cough that has been ongoing for the past 2 weeks. Patient reported associated signs and symptoms of weakness, poor appetite, loss of smell, fatigue, fever, chills and generalized malaise. Patient denies any other signs or symptoms. Symptoms are aggravated by exertion and relieved by nothing. Patient decided to present to the hospital due to worsening symptoms. Allergies NSAIDS (Non-Steroidal Anti-Inflamma Allergy (Verified 02/02/21 09:06) stomach pains Penicillins Allergy (Verified 02/02/21 09:06) Itching/Hives/Rash aspirin Adverse Reaction (Verified 02/02/21 09:06) Rash warfarin Adverse Reaction (Verified 02/02/21 09:06) Rash Home Medications: Allopurinol 100 mg PO BID 07/19/20 Diclofenac Sodium [Voltaren] 1 g TOP TIDP PRN 07/19/20 Digoxin [Lanoxin*] 0.125 mg PO DAILY 07/19/20 Duloxetine HCl [Cymbalta] 30 mg PO DAILY 07/19/20 Furosemide [Lasix*] 40 mg PO BIDL 07/19/20 Labetalol HCl [Trandate] 200 mg PO BID 07/19/20 Montelukast [Singulair*] 10 mg PO DAILY 07/19/20 Pantoprazole Sodium [Protonix] 40 mg PO BID 07/19/20 Potassium Oral Tab [Klor-Con 10 mEq Tab*] 10 meq PO DAILY 07/19/20 Primidone 50 mg PO TID 07/19/20 Rosuvastatin [Crestor*] 10 mg PO BEDTIME 07/19/20 Spironolactone 50 mg PO DAILY 07/19/20 Tacrolimus [Prograf] 3 mg PO BID 07/19/20 mycophenolate mofetiL [Mycophenolate Mofetil] 1,000 mg PO BID 07/19/20 predniSONE [Prednisone*] 5 mg PO DAILY 07/19/20 Clopidogrel Bisulfate [Plavix*] 75 mg PO DAILY 10/30/20 Hydrocodone Bit/Acetaminophen [Hydrocodon-Acetaminoph 7.5-325] 1 each PO TID PRN 10/30/20 Albuterol Neb [Proventil 0.083% Neb Soln] 2.5 mg NEB [id number] #120 amp 11/03/20 Aspirin [Aspirin EC] 1 tab PO DAILY 02/02/21 Cholestyramine [Cholestyramine Resin] 5 gm PO BEDTIME 02/02/21 Fluticasone/Umeclidin/Vilanter [Trelegy Ellipta 100-62.5-25] 1 puff IN DAILY 02/02/21 Insulin Aspart Prot/Insuln Asp [Novolog Mix 70-30 Flexpen] 1 in SQ BID 02/02/21 Brimonidine Tartrate 10 ml OP BID 03/14/21 Carboxymethylcellulos/Glycerin [Refresh Optive Eye Drops] 15 ml OP QID PRN 03/14/21 Carboxymethylcellulose Sodium [Lubricant Eye Drop] 15 ml OP DAILY 03/14/21 Cyclosporine [Restasis] 1 drop EACH EYE BID 03/14/21 Ipratropium [place] 2 spray NS QID 03/14/21 Tafluprost/Pf [Zioptan 0.0015% Eye Drops] 1 each OP DAILY 03/14/21 Albuterol Inhaler [Ventolin Inhaler*] 90 mcg IN QID 01/09/22 - Past Medical/Surgical History Diabetic: Yes -: Diabetes mellitus type 2 -: COPD -: CHF -: Atrial fibrillation with history of watchman procedure -: History aortic stenosis status post TAVR -: GERD -: HTN -: Gout -: Hyperlipidemia -: CAD status post stent LAD 2020 -: Severe aortic stenosis status post TAVR -: History of kidney transplant on antirejection medication -: R KNEE REPLACEMENT -: KIDNEY TRANSPLANT -: 40% STOMACH REMOVAL -: CARPAL TUNNEL REPAIR -: Rt Hip Replacement -: Skin graft to nose -: Cholecystectomy -: Appendectomy Psychosocial/ Personal History: Patient lives at home - Family History Father -: Heart disease, Hypertension, Diabetes Mother -: Hypertension, Stroke - Social History Smoking Status: Unknown if ever smoked Alcohol use: Yes CD- Drugs: No Caffeine use: Yes Place of Residence: Home Review of Systems General: Fever, Chills, Weakness, Malaise, Other (Poor Appetite, loos of smell, fatigue ) Eyes: Unremarkable ENT: Unremarkable Respiratory: Cough, Shortness of Breath Cardiovascular: Unremarkable Gastrointestinal: Unremarkable Genitourinary: Unremarkable Musculoskeletal: Unremarkable Integumentary: Unremarkable Neurological: Weakness Physical Examination - Physical Exam General: Alert, Oriented x3, Mild distress HEENT: Atraumatic, Normocephalic, PERRLA Neck: Supple, 2+ carotid pulse no bruit, JVD not distended Respiratory: Diminished, Crackles/rales Cardiovascular: No edema, Normal pulses Capillary refill: <2 Seconds Gastrointestinal: Normal bowel sounds, Soft and benign Musculoskeletal: No clubbing, No swelling, No contractures Integumentary: No rashes, No breakdown, No significant lesion, No tenderness/swelling Neurological: Normal speech, Normal tone, Normal affect Lymphatics: No axilla or inguinal lymphadenopathy - Studies Laboratory Data (last 24 hrs) 01/08/22 15:40: PT 10.3, INR 0.94, APTT 28.2 01/08/22 15:40: Sodium 134 L, Potassium 4.6, BUN 29 H, Creatinine 0.93, Glucose 143 H, Total Bilirubin 0.5, AST 16, ALT 19, Alkaline Phosphatase 45 01/08/22 15:40: WBC 3.50 L, Hgb 14.0, Hct 42.7, Plt Count 125 L Assessment and Plan - Plan -- COVID-19 pneumonia. Pulmonology consulted. Patient placed on steroid, O2 therapy and antibiotics. Continue vitamin C\thiamine\zinc. We will await further recommendation from junior staff accountant. --Acute on chronic COPD exacerbation. Continue steroids, neb treatment with albuterol\Atrovent and O2 therapy. -- Glaucoma. Continue home medication. --Hypertension. Poorly controlled. Continue home medications and hydralazine as needed. --Acute on chronic diastolic CHF exacerbation. Continue diuresis with Lasix. Daily weight and strict I/O. -- Hyperlipidemia. Continue statin. --ROSANA. Continue supportive care. --GERD. Continue Protonix. --CKD 2. Stable. Will reassess later renal functions in a.m. --Paroxysmal A. fib. Patient has a history of watchman procedure. Telemetry to monitor for any malignant arrhythmia.- --History of kidney transplant. Stable. Continue home medications. --DVT prophylaxis with heparin subQ. Discharge Plan: Home Plan to discharge in: Greater than 2 days - Advance Directives Does patient have a Living Will: Yes Does patient have a Durable POA for Healthcare: No - Code Status/Comfort Care Code Status Assessed: Yes Code Status: Full Code Physician Review: Patient Assessed, Agree with Above Assessment and Plan
[2022-01-08 18:13] LABS: Magnesium 1.9 mg/dL (1.8-2.4); Phosphorus 3.1 mg/dL (2.5-4.9)
[2022-01-08] MEDS ORDERED: ALBUTEROL 2.5 MG/3 ML NEB SOL ONE (19:34)
[2022-01-08] MEDS ORDERED: IPRATROPIUM BROM 0.5MG/2.5ML ONE (19:34)
[2022-01-08] MEDS: IPRATROPIUM BROM 0.5MG/2.5ML NEB SCH (19:35)
[2022-01-08] MEDS: ALBUTEROL 2.5 MG/3 ML NEB SOL NEB SCH (19:35)
[2022-01-08] MEDS: THIAMINE HCL 100 MG TABLET PO SCH (20:00)
[2022-01-08] MEDS: ASPIRIN EC 81 MG TAB PO SCH (20:00)
[2022-01-08] MEDS ORDERED: ASPIRIN EC 81 MG TAB PO ONE (20:47)
[2022-01-08] MEDS ORDERED: HEPARIN 5000 UNIT/ML 1 ML VIAL ONE (20:47)
[2022-01-08] MEDS ORDERED: LABETALOL HCL 200 MG PO SCH (21:00)
[2022-01-08] MEDS ORDERED: CEFEPIME 2 GM VIAL IM SCH (21:00)
[2022-01-08] MEDS: HOME MED 1 EA UNK (Mycophenolate Mofetil [Mycophenolate Mofetil] 500 MG Tablet) PO SCH (21:00)
[2022-01-08] MEDS: PANTOPRAZOLE 40MG TABLET PO SCH (21:00)
[2022-01-08] MEDS: BRIMONIDINE TARTRATE 0.15% OPTH SCH (21:00)
[2022-01-08] MEDS: PRIMIDONE 50 MG TAB PO SCH (21:00)
[2022-01-08] MEDS: ASCORBIC ACID 500 MG TABLET PO SCH (21:00)
[2022-01-08] MEDS: HOME MED 1 EA UNK (Tacrolimus [Prograf] 1 MG Capsule) PO SCH (21:00)
[2022-01-08] MEDS: allopurinoL 100 MG TAB PO SCH (21:00)
[2022-01-08] MEDS: LABETALOL HCL 100 MG TAB PO SCH (21:00)
[2022-01-08] MEDS: HOME MED 1 EA UNK (Cyclosporine [Restasis] Droperette) OPTH SCH (21:00)
[2022-01-08] MEDS: ROSUVASTATIN 10 MG TAB PO SCH (21:00)
[2022-01-08] MEDS ORDERED: CHOLESTYRAMINE 5 GM PO SCH (21:00)
[2022-01-08] MEDS ORDERED: PANTOPRAZOLE 40MG TABLET PO ONE (23:00)
[2022-01-08] MEDS ORDERED: ASCORBIC ACID 500 MG TABLET ONE (23:00)
[2022-01-08] MEDS ORDERED: CEFEPIME 1 GM/VIAL ONE (23:01)
[2022-01-08] MEDS ORDERED: THIAMINE HCL 100 MG TABLET ONE (23:01)
[2022-01-08] MEDS ORDERED: NA CHLORIDE 0.9% 100 ML IV ONE (23:01)
[2022-01-08] MEDS ORDERED: LABETALOL HCL 100 MG TAB ONE (23:01)
[2022-01-09] MEDS ORDERED: CHOLESTYRAMINE/ASP 4 GM/PKT ONE (00:16)
[2022-01-09] MEDS ORDERED: allopurinoL 100 MG TAB ONE (00:16)
[2022-01-09] MEDS: CEFEPIME 1 GM in NA CHLORIDE 0.9% 100 ML IV SCH ×2 (00:45→09:00)
[2022-01-09] MEDS: METHYLPREDNISOLONE 40 MG INJ IV SCH ×3 (01:00→17:14)
[2022-01-09] MEDS: IPRATROPIUM BROM 0.5MG/2.5ML NEB SCH ×4 (01:30→19:40)
[2022-01-09] MEDS: ALBUTEROL 2.5 MG/3 ML NEB SOL NEB SCH ×4 (01:30→19:40)
[2022-01-09] MEDS ORDERED: HEPARIN 5000 UNIT/ML 1 ML VIAL ONE ×2 (01:39→09:01)
[2022-01-09] MEDS ORDERED: METHYLPREDNISOLONE 40 MG INJ ONE ×2 (01:40→09:02)
[2022-01-09] MEDS ORDERED: ALBUTEROL 2.5 MG/3 ML NEB SOL ONE ×3 (01:44→14:18)
[2022-01-09] MEDS ORDERED: IPRATROPIUM BROM 0.5MG/2.5ML ONE ×3 (01:44→14:18)
[2022-01-09] MEDS: CHOLESTYRAMINE/ASP 4 GM/PKT PO SCH ×2 (02:00→23:15)
[2022-01-09] MEDS: HEPARIN 5000 UNIT/ML 1 ML VIAL SQ SCH ×3 (02:00→23:05)
[2022-01-09 02:49] VITALS: BMI 28.7
[2022-01-09 03:24] LABS: Absolute Lymphocytes (CBC) 0.2 K/uL (0.7-4.9)
[2022-01-09 03:34] LABS: Hematocrit 40.3 % (39.6-49.0); Lymphocytes % 8.9 % (15.3-44.8); MCV 91.5 fL (80-100); MPV 9.1 fL (7.6-11.3); RBC Red Blood Cell Count 4.41 M/uL (4.33-5.43)
[2022-01-09 04:48] LABS: Blood Morphology Comment NOT SEEN (NOT SEEN); Platelet Estimate ADEQ; White Blood Cell Scan OK (OK)
[2022-01-09] MEDS ORDERED: INFLUENZA VACCINE (for 6+ mo) 0.5 ML DOSE IMVAC ONE (08:00)
--- NOTE | 2022-01-09 08:22 | EKG ---
Test Date: 2022-01-08 Test Time: 14:57:31 Tromper: MELY MEASUREMENT RESULTS: Intervals: Rate: 76 NM: QRSD: 142 QT: 394 QTc: 443 [place]: P: NM: QRS: -61 T: 45 INTERPRETIVE STATEMENTS: Atrial fibrillation Right bundle branch block Left anterior fascicular block Bifascicular block Septal infarct, age undetermined Abnormal ECG Compared to ECG 03/17/2021 09:59:03 Left anterior fascicular block now present Bifascicular block now present Myocardial infarct finding now present Left-axis deviation no longer present Electronically Signed On 01-09-22 08:19:51 SENIOR MAINTENANCE MECHANIC by Dov Michel
[2022-01-09] MEDS: LABETALOL HCL 100 MG TAB PO SCH ×2 (09:00→23:16)
[2022-01-09] MEDS: HOME MED 1 EA UNK (Tacrolimus [Prograf] 1 MG Capsule) PO SCH ×2 (09:00→21:00)
[2022-01-09] MEDS: HOME MED 1 EA UNK (Cyclosporine [Restasis] Droperette) OPTH SCH ×2 (09:00→21:00)
[2022-01-09] MEDS: DULOXETINE 30 MG CAP PO SCH (09:00)
[2022-01-09] MEDS: SPIRONOLACTONE 25 MG TABLET PO SCH (09:00)
[2022-01-09] MEDS ORDERED: ZINC SULFATE 220 MG CAP PO SCH (09:00)
[2022-01-09] MEDS: PANTOPRAZOLE 40MG TABLET PO SCH ×2 (09:00→23:15)
[2022-01-09] MEDS: TAFLUPROST OPTH SCH (09:00)
[2022-01-09] MEDS ORDERED: AZITHROMYCIN IV 500 MG in NA CHLORIDE 0.9% 250 ML IVPB SCH (09:00)
[2022-01-09] MEDS ORDERED: HOME MED 1 EA UNK (Spironolactone [Spironolactone] 50 MG Tablet) PO SCH (09:00)
[2022-01-09] MEDS: ASPIRIN EC 81 MG TAB PO SCH (09:00)
[2022-01-09] MEDS: HOME MED 1 EA UNK (Mycophenolate Mofetil [Mycophenolate Mofetil] 500 MG Tablet) PO SCH ×2 (09:00→21:00)
[2022-01-09] MEDS: HOME MED 1 EA UNK (Fluticasone/Umeclidin/Vilanter [Trelegy Ellipta 100-62.5-25] Blst.W.Dev IH SCH (09:00)
[2022-01-09] MEDS: PRIMIDONE 50 MG TAB PO SCH ×3 (09:00→23:14)
[2022-01-09] MEDS: DIGOXIN 0.125 MG TABLET PO SCH (09:00)
[2022-01-09] MEDS: allopurinoL 100 MG TAB PO SCH ×2 (09:00→23:16)
[2022-01-09] MEDS: ASCORBIC ACID 500 MG TABLET PO SCH ×2 (09:00→23:16)
[2022-01-09] MEDS ORDERED: DULOXETINE 30 MG CAP PO ONE (09:00)
[2022-01-09] MEDS: THIAMINE HCL 100 MG TABLET PO SCH (09:00)
[2022-01-09] MEDS: CLOPIDOGREL 75 MG TABLET PO SCH (09:00)
[2022-01-09] MEDS: BRIMONIDINE TARTRATE 0.15% OPTH SCH ×2 (09:00→21:00)
[2022-01-09] MEDS: POTASSIUM CL SA 10 MEQ TAB PO SCH (09:00)
[2022-01-09] MEDS: MONTELUKAST 10 MG TAB PO SCH (09:00)
[2022-01-09] MEDS ORDERED: ZINC SULFATE 220 MG CAP ONE (09:01)
[2022-01-09] MEDS ORDERED: ASPIRIN EC 81 MG TAB PO ONE (09:01)
[2022-01-09] MEDS ORDERED: DIGOXIN 0.25 MG TABLET ONE (09:01)
[2022-01-09] MEDS ORDERED: CLOPIDOGREL 75 MG TABLET ONE (09:02)
[2022-01-09] MEDS ORDERED: AZITHROMYCIN 500 MG INJ IVPB ONE (09:02)
[2022-01-09] MEDS ORDERED: POTASSIUM CL SA 10 MEQ TAB PO ONE (09:02)
[2022-01-09] MEDS ORDERED: NA CHLORIDE 0.9% 250 ML ONE (09:03)
[2022-01-09] MEDS ORDERED: CEFEPIME 1 GM/VIAL ONE (09:03)
[2022-01-09] MEDS ORDERED: NA CHLORIDE 0.9% 100 ML IV ONE (09:03)
[2022-01-09] MEDS ORDERED: SPIRONOLACTONE 25 MG TABLET ONE (09:24)
[2022-01-09] MEDS ORDERED: PNEUMOCOCCAL VACCINE 0.5 ML IMVAC ONE (12:00)
--- NOTE | 2022-01-09 12:21 | P.CNS ---
Date of Consult: 01/09/22 Reason for Consult: Coronavirus pneumonia Chief Complaint: SOB History of Present Illness: Patient is 76 years of age multiple medical problems well-known to me got sick about 2 weeks ago complaining of cough poor appetite and into the hospital diagnosis of possible coronavirus pneumonia coughing up some brown sputum Allergies NSAIDS (Non-Steroidal Anti-Inflamma Allergy (Verified 02/02/21 09:06) stomach pains Penicillins Allergy (Verified 02/02/21 09:06) Itching/Hives/Rash aspirin Adverse Reaction (Verified 02/02/21 09:06) Rash warfarin Adverse Reaction (Verified 02/02/21 09:06) Rash Home Medications: Allopurinol 100 mg PO BID 07/19/20 Diclofenac Sodium [Voltaren] 1 g TOP TIDP PRN 07/19/20 Digoxin [Lanoxin*] 0.125 mg PO DAILY 07/19/20 Duloxetine HCl [Cymbalta] 30 mg PO DAILY 07/19/20 Furosemide [Lasix*] 40 mg PO BIDL 07/19/20 Labetalol HCl [Trandate] 200 mg PO BID 07/19/20 Montelukast [Singulair*] 10 mg PO DAILY 07/19/20 Pantoprazole Sodium [Protonix] 40 mg PO BID 07/19/20 Potassium Oral Tab [Klor-Con 10 mEq Tab*] 10 meq PO DAILY 07/19/20 Primidone 50 mg PO TID 07/19/20 Rosuvastatin [Crestor*] 10 mg PO BEDTIME 07/19/20 Spironolactone 50 mg PO DAILY 07/19/20 Tacrolimus [Prograf] 3 mg PO BID 07/19/20 mycophenolate mofetiL [Mycophenolate Mofetil] 1,000 mg PO BID 07/19/20 predniSONE [Prednisone*] 5 mg PO DAILY 07/19/20 Clopidogrel Bisulfate [Plavix*] 75 mg PO DAILY 10/30/20 Hydrocodone Bit/Acetaminophen [Hydrocodon-Acetaminoph 7.5-325] 1 each PO TID PRN 10/30/20 Albuterol Neb [Proventil 0.083% Neb Soln] 2.5 mg NEB [id number] #120 amp 11/03/20 Aspirin [Aspirin EC] 1 tab PO DAILY 02/02/21 Cholestyramine [Cholestyramine Resin] 5 gm PO BEDTIME 02/02/21 Fluticasone/Umeclidin/Vilanter [Trelegy Ellipta 100-62.5-25] 1 puff IN DAILY 02/02/21 Insulin Aspart Prot/Insuln Asp [Novolog Mix 70-30 Flexpen] 1 in SQ BID 02/02/21 Brimonidine Tartrate 10 ml OP BID 03/14/21 Carboxymethylcellulos/Glycerin [Refresh Optive Eye Drops] 15 ml OP QID PRN 03/14/21 Carboxymethylcellulose Sodium [Lubricant Eye Drop] 15 ml OP DAILY 03/14/21 Cyclosporine [Restasis] 1 drop EACH EYE BID 03/14/21 Ipratropium [place] 2 spray NS QID 03/14/21 Tafluprost/Pf [Zioptan 0.0015% Eye Drops] 1 each OP DAILY 03/14/21 Albuterol Inhaler [Ventolin Inhaler*] 90 mcg IN QID 01/09/22 - Past Medical/Surgical History Diabetic: Yes -: Diabetes mellitus type 2 -: COPD -: CHF -: Atrial fibrillation with history of watchman procedure -: History aortic stenosis status post TAVR -: GERD -: HTN -: Gout -: Hyperlipidemia -: CAD status post stent LAD 2020 -: Severe aortic stenosis status post TAVR -: History of kidney transplant on antirejection medication -: R KNEE REPLACEMENT -: KIDNEY TRANSPLANT -: 40% STOMACH REMOVAL -: CARPAL TUNNEL REPAIR -: Rt Hip Replacement -: Skin graft to nose -: Cholecystectomy -: Appendectomy Psychosocial/ Personal History: Patient lives at home - Family History Father Medical History: Heart disease, Hypertension, Diabetes Mother Medical History: Hypertension, Stroke - Social History Smoking Status: Unknown if ever smoked Alcohol use: Yes CD- Drugs: No Caffeine use: Yes Place of Residence: Home Review of Systems 10-point ROS is otherwise unremarkable General: Weakness Respiratory: Cough, Shortness of Breath Physical Examination Temp Pulse Resp BP Pulse Ox 97.7 F 76 20 170/94 H 96 01/09/22 04:00 01/09/22 09:00 01/09/22 08:00 01/09/22 09:00 01/09/22 08:00 General: Alert, In no apparent distress, Oriented x3 Respiratory: Clear to auscultation bilaterally, Diminished Cardiovascular: No edema, Regular rate/rhythm, Normal S1 S2 Laboratory Data (last 24 hrs) 01/08/22 15:40: Phosphorus 3.1, Magnesium 1.9 01/08/22 15:40: PT 10.3, INR 0.94, APTT 28.2 01/08/22 15:40: Sodium 134 L, Potassium 4.6, BUN 29 H, Creatinine 0.93, Glucose 143 H, Total Bilirubin 0.5, AST 16, ALT 19, Alkaline Phosphatase 45 01/08/22 15:40: WBC 3.50 L, Hgb 14.0, Hct 42.7, Plt Count 125 L - Problems (1) Coronavirus infection Current Visit: Yes Status: Acute Plan: Patient is 76 years of age has been sick for about 2 weeks worsening shortness of breath productive cough tested positive for coronavirus patient has a history of renal transplant on immunosuppressive treatment blood pressure still elevated oxygenation satisfactory patient has O2 at home possibly coronavirus pneumonia patient has no fever today he has them diarrhea and stomach upset labs reviewed patient is on bronchodilators at home takes tacrolimus changed to p.o. levofloxacin plan for discharge tomorrow stable
[2022-01-09] MEDS: FUROSEMIDE 40 MG/4 ML VIAL IV SCH (17:14)
[2022-01-09] MEDS ORDERED: CEFEPIME 2 GM in NA CHLORIDE 0.9% 100 ML IV SCH (21:00)
[2022-01-09] MEDS: ROSUVASTATIN 10 MG TAB PO SCH (23:05)
[2022-01-10] MEDS: METHYLPREDNISOLONE 40 MG INJ IV SCH ×3 (01:06→16:39)
[2022-01-10] MEDS: ALBUTEROL 2.5 MG/3 ML NEB SOL NEB SCH ×4 (01:20→20:35)
[2022-01-10] MEDS: IPRATROPIUM BROM 0.5MG/2.5ML NEB SCH ×4 (01:20→20:35)
[2022-01-10 06:20] LABS: Absolute Lymphocytes (CBC) 0.2 K/uL (0.7-4.9); Hematocrit 41.7 % (39.6-49.0); Lymphocytes % 5.6 % (15.3-44.8); MCV 91.1 fL (80-100); MPV 8.5 fL (7.6-11.3); RBC Red Blood Cell Count 4.58 M/uL (4.33-5.43)
[2022-01-10 06:45] LABS: Potassium 4.9 mmol/L (3.5-5.1)
--- NOTE | 2022-01-10 08:37 | RAD REPORT ---
EXAM DESCRIPTION: Janell Single View01/10/2022 7:06 am CLINICAL HISTORY: Chest pain COMPARISON: January 08, 2022 FINDINGS: Mild improvement in bilateral pulmonary opacities. Heart remains enlarged IMPRESSION: Mild improvement in the bilateral pneumonia
[2022-01-10] MEDS: HOME MED 1 EA UNK (Cyclosporine [Restasis] Droperette) OPTH SCH ×2 (09:00→21:00)
[2022-01-10] MEDS ORDERED: levoFLOXacin 750 MG TAB PO SCH (09:00)
[2022-01-10] MEDS: TAFLUPROST OPTH SCH (09:00)
[2022-01-10] MEDS: HOME MED 1 EA UNK (Fluticasone/Umeclidin/Vilanter [Trelegy Ellipta 100-62.5-25] Blst.W.Dev IH SCH (09:00)
[2022-01-10] MEDS: BRIMONIDINE TARTRATE 0.15% OPTH SCH ×2 (09:00→21:00)
[2022-01-10] MEDS: HOME MED 1 EA UNK (Tacrolimus [Prograf] 1 MG Capsule) PO SCH ×2 (09:00→21:00)
[2022-01-10] MEDS: HOME MED 1 EA UNK (Mycophenolate Mofetil [Mycophenolate Mofetil] 500 MG Tablet) PO SCH ×2 (09:00→21:00)
[2022-01-10] MEDS: LABETALOL HCL 100 MG TAB PO SCH ×2 (09:29→21:00)
[2022-01-10] MEDS: ASCORBIC ACID 500 MG TABLET PO SCH ×2 (09:29→21:00)
[2022-01-10] MEDS: PANTOPRAZOLE 40MG TABLET PO SCH ×2 (09:29→21:00)
[2022-01-10] MEDS: POTASSIUM CL SA 10 MEQ TAB PO SCH (09:29)
[2022-01-10] MEDS: SPIRONOLACTONE 25 MG TABLET PO SCH (09:30)
[2022-01-10] MEDS: allopurinoL 100 MG TAB PO SCH ×2 (09:30→21:00)
[2022-01-10] MEDS: THIAMINE HCL 100 MG TABLET PO SCH (09:30)
[2022-01-10] MEDS: PRIMIDONE 50 MG TAB PO SCH ×3 (09:30→21:00)
[2022-01-10] MEDS: ASPIRIN EC 81 MG TAB PO SCH (09:30)
[2022-01-10] MEDS: DULOXETINE 30 MG CAP PO SCH (09:30)
[2022-01-10] MEDS: CLOPIDOGREL 75 MG TABLET PO SCH (09:30)
[2022-01-10] MEDS: DIGOXIN 0.125 MG TABLET PO SCH (09:30)
[2022-01-10] MEDS: MONTELUKAST 10 MG TAB PO SCH (09:31)
[2022-01-10] MEDS: FUROSEMIDE 40 MG/4 ML VIAL IV SCH ×2 (09:31→16:39)
[2022-01-10] MEDS: HEPARIN 5000 UNIT/ML 1 ML VIAL SQ SCH ×2 (10:21→21:00)
[2022-01-10] MEDS: CHOLESTYRAMINE/ASP 4 GM/PKT PO SCH (21:00)
[2022-01-10] MEDS: ROSUVASTATIN 10 MG TAB PO SCH (21:00)
[2022-01-11] MEDS: IPRATROPIUM BROM 0.5MG/2.5ML NEB SCH ×4 (02:00→20:00)
[2022-01-11] MEDS: ALBUTEROL 2.5 MG/3 ML NEB SOL NEB SCH ×4 (02:00→20:00)
[2022-01-11] MEDS: METHYLPREDNISOLONE 40 MG INJ IV SCH (02:18)
--- NOTE | 2022-01-11 08:37 | P.PN ---
Subjective Date of Service: 01/11/22 Chief Complaint: Chest congestion pneumonia Patient is not improving he still has congestion productive cough no fever or chills Review of Systems General: Weakness Respiratory: Cough, Shortness of Breath Physical Examination - Vital Signs Temperature: 97.0 F Blood Pressure: 175/97 Pulse: 92 Respirations: 17 Pulse Ox (%): 96 - Physical Exam General: Alert, Oriented x3 Respiratory: Diminished, Expiratory wheezes Cardiovascular: No edema, Regular rate/rhythm, Normal S1 S2 Assessment And Plan - Current Problems (Diagnosis) (1) Coronavirus infection Current Visit: Yes Status: Acute Plan: Patient tested positive for coronavirus infection (2) Pneumonia Current Visit: Yes Status: Acute Plan: Patient is 76 years of age admitted with pneumonia and was tested positive for coronavirus patient is not improving mildly hypoxic change advisor to meropenem and p.o. doxycycline he is at risk for resistant infection sputum culture chemistri es reviewed renal function is normal add Lasix blood pressure is still elevated changed to p.o. prednisone Qualifiers: Laterality: bilateral Physician Review: Patient Assessed, Agree with Above Assessment and Plan
[2022-01-11] MEDS ORDERED: FUROSEMIDE 20 MG/ 2ML VIAL IV SCH (09:00)
[2022-01-11] MEDS: TAFLUPROST OPTH SCH (09:00)
[2022-01-11] MEDS: HOME MED 1 EA UNK (Tacrolimus [Prograf] 1 MG Capsule) PO SCH ×2 (09:00→21:00)
[2022-01-11] MEDS: HOME MED 1 EA UNK (Fluticasone/Umeclidin/Vilanter [Trelegy Ellipta 100-62.5-25] Blst.W.Dev IH SCH (09:00)
[2022-01-11] MEDS: HOME MED 1 EA UNK (Cyclosporine [Restasis] Droperette) OPTH SCH ×2 (09:00→21:00)
[2022-01-11] MEDS: HOME MED 1 EA UNK (Mycophenolate Mofetil [Mycophenolate Mofetil] 500 MG Tablet) PO SCH ×2 (09:00→21:00)
[2022-01-11] MEDS: BRIMONIDINE TARTRATE 0.15% OPTH SCH ×2 (09:00→21:00)
[2022-01-11] MEDS: FUROSEMIDE 40 MG/4 ML VIAL IV SCH ×2 (09:52→17:00)
[2022-01-11] MEDS: allopurinoL 100 MG TAB PO SCH ×2 (09:52→20:54)
[2022-01-11] MEDS: ASPIRIN EC 81 MG TAB PO SCH (09:52)
[2022-01-11] MEDS: SPIRONOLACTONE 25 MG TABLET PO SCH (09:52)
[2022-01-11] MEDS: Meropenem 1,000 MG in NA CHLORIDE 0.9% 100 ML IV SCH ×2 (09:52→21:00)
[2022-01-11] MEDS: POTASSIUM CL SA 10 MEQ TAB PO SCH (09:53)
[2022-01-11] MEDS: LABETALOL HCL 100 MG TAB PO SCH ×2 (09:53→20:53)
[2022-01-11] MEDS: PANTOPRAZOLE 40MG TABLET PO SCH ×2 (09:53→20:54)
[2022-01-11] MEDS: ENOXAPARIN 40 MG/0.4 ML SQ SCH (09:53)
[2022-01-11] MEDS: ASCORBIC ACID 500 MG TABLET PO SCH ×2 (09:53→20:54)
[2022-01-11] MEDS: predniSONE 20 MG TAB PO SCH ×2 (09:53→20:54)
[2022-01-11] MEDS: CLOPIDOGREL 75 MG TABLET PO SCH (09:53)
[2022-01-11] MEDS: DULOXETINE 30 MG CAP PO SCH (09:53)
[2022-01-11] MEDS: DIGOXIN 0.125 MG TABLET PO SCH (09:53)
[2022-01-11] MEDS: DOXYCYCLINE 100 MG CAP PO SCH ×2 (09:53→20:54)
[2022-01-11] MEDS: THIAMINE HCL 100 MG TABLET PO SCH (09:53)
[2022-01-11] MEDS: MONTELUKAST 10 MG TAB PO SCH (09:53)
[2022-01-11] MEDS: PRIMIDONE 50 MG TAB PO SCH ×3 (09:54→20:56)
--- NOTE | 2022-01-11 14:08 | P.PN ---
Date of Service: 01/09/22 Subjective Patient is clinically doing well with no new complaints. Respiratory status has improved. Chest x-ray repeat in the morning. Physical Examination - Physical Exam General: Alert, Oriented x3, Mild distress Respiratory: Diminished, Crackles/rales Cardiovascular: No edema, Normal pulses Gastrointestinal: Normal bowel sounds, Soft and benign Musculoskeletal: No clubbing, No swelling, No contractures Integumentary: No rashes, No breakdown, No significant lesion, No tenderness/swelling Neurological: Normal speech, Normal tone, Normal affect Assessment and Plan -Assessment -- COVID-19 pneumonia. Pulmonology consulted. Patient placed on steroid, O2 therapy and antibiotics. Continue vitamin C\thiamine\zinc. We will await further recommendation from wing scorer. --Acute on chronic COPD exacerbation. Continue steroids, neb treatment with albuterol\Atrovent and O2 therapy. -- Glaucoma. Continue home medication. --Hypertension. Poorly controlled. Continue home medications and hydralazine as needed. --Acute on chronic diastolic CHF exacerbation. Continue diuresis with Lasix. Daily weight and strict I/O. -- Hyperlipidemia. Continue statin. --ROSANA. Continue supportive care. --GERD. Continue Protonix. --CKD 2. Stable. Will reassess later renal functions in a.m. --Paroxysmal A. fib. Patient has a history of watchman procedure. Telemetry to monitor for any malignant arrhythmia.- --History of kidney transplant. Stable. Continue home medications. --DVT prophylaxis with heparin subQ. -Plan Plan: 1. Continue with IV and IV antibiotics 2. Awaiting sputum and blood culture; with positive 3. Repeat chest x-ray 4. CT scan of the chest if pneumonia is not improving- 5. Appreciate pulmonary consultation 6. Continue with nebs as needed 7. O2 per protocol 8. History of cardiac disease and will continue with diuretics as BNP elevated 9. Repeat labs including CBC and renal function in a.m. 10. GI and DVT prophylaxis
--- NOTE | 2022-01-11 14:10 | P.PN ---
Date of Service: 01/11/22 Subjective Respiratory status and oxygen sats have improved. Overall improving but he is not ready to go home at this point. He has oxygen at home. We have arranged for nebulizer treatments at home. We will arrange for [facility] health with [facility]. Anticipate discharge over the next 24 to 48 hours. Physical Examination - Physical Exam General: Alert, Oriented x3, Mild distress Respiratory: Upper airway noise but otherwise clear Cardiovascular: No edema, Normal pulses Gastrointestinal: Normal bowel sounds, Soft and benign Musculoskeletal: No clubbing, No swelling, No contractures Integumentary: No rashes, No breakdown, No significant lesion, No tenderness/swelling Neurological: Normal speech, Normal tone, Normal affect Assessment and Plan -Assessment -- COVID-19 pneumonia. --Acute on chronic COPD exacerbation. -- Glaucoma. --Hypertension. --Acute on chronic diastolic CHF exacerbation. -- Hyperlipidemia. --ROSANA. --GERD. --CKD 2. --Paroxysmal A. fib. Patient has a history of watchman procedure. --History of kidney transplant. --DVT prophylaxis with heparin subQ. -Plan Plan: 1. Continue with IV and IV antibiotics 2. Awaiting sputum and blood culture; with positive 3. Repeat chest x-ray 4. CT scan of the chest if pneumonia is not improving- 5. Appreciate pulmonary consultation 6. Continue with nebs as needed 7. O2 per protocol 8. History of cardiac disease and will continue with diuretics as BNP elevated 9. Repeat labs including CBC and renal function in a.m. 10. GI and DVT prophylaxis
--- NOTE | 2022-01-11 14:10 | P.PN ---
Date of Service: 01/10/22 Subjective Chest x-ray shows improvement. However, he does not feel much better. A lot of upper airway congestion. He do not feel like he is ready to go home at this time. Continue with current treatment as outlined. Physical Examination - Physical Exam General: Alert, Oriented x3, Mild distress Respiratory: Upper airway noise but otherwise clear Cardiovascular: No edema, Normal pulses Gastrointestinal: Normal bowel sounds, Soft and benign Musculoskeletal: No clubbing, No swelling, No contractures Integumentary: No rashes, No breakdown, No significant lesion, No tenderness/swelling Neurological: Normal speech, Normal tone, Normal affect Assessment and Plan -Assessment -- COVID-19 pneumonia. --Acute on chronic COPD exacerbation. -- Glaucoma. --Hypertension. --Acute on chronic diastolic CHF exacerbation. -- Hyperlipidemia. --ROSANA. --GERD. --CKD 2. --Paroxysmal A. fib. Patient has a history of watchman procedure. --History of kidney transplant. --DVT prophylaxis with heparin subQ. -Plan Plan: 1. Continue with IV and IV antibiotics 2. Awaiting sputum and blood culture; with positive 3. Repeat chest x-ray 4. CT scan of the chest if pneumonia is not improving- 5. Appreciate pulmonary consultation 6. Continue with nebs as needed 7. O2 per protocol 8. History of cardiac disease and will continue with diuretics as BNP elevated 9. Repeat labs including CBC and renal function in a.m. 10. GI and DVT prophylaxis
[2022-01-11] MEDS: ROSUVASTATIN 10 MG TAB PO SCH (20:53)
[2022-01-11] MEDS: CHOLESTYRAMINE/ASP 4 GM/PKT PO SCH (20:58)
[2022-01-12] MEDS: IPRATROPIUM BROM 0.5MG/2.5ML NEB SCH ×4 (01:20→20:25)
[2022-01-12] MEDS: ALBUTEROL 2.5 MG/3 ML NEB SOL NEB SCH ×4 (01:20→20:25)
[2022-01-12 05:59] LABS: Absolute Lymphocytes (CBC) 0.2 K/uL (0.7-4.9); Hematocrit 44.8 % (39.6-49.0); Lymphocytes % 5.4 % (15.3-44.8); MCV 91.1 fL (80-100); MPV 8.6 fL (7.6-11.3); RBC Red Blood Cell Count 4.92 M/uL (4.33-5.43)
[2022-01-12 06:40] LABS: Albumin 2.9 g/dL (3.4-5.0); Bilirubin Total 0.7 mg/dL (0.2-1.0); Potassium 4.2 mmol/L (3.5-5.1); Protein, Total 6.3 g/dL (6.4-8.2)
--- NOTE | 2022-01-12 08:47 | RAD REPORT ---
EXAM DESCRIPTION: RAD - Chest Single View - 01/12/2022 7:19 am CLINICAL HISTORY: pneumonia COMPARISON: Portable January 10 TECHNIQUE: AP portable chest image was obtained 01/12/2022 7:19 am . FINDINGS: Lung parenchymal opacification is not significantly different from January 10. No progres sive lung parenchymal process seen. Prominent cardiomegaly remains. Central vasculature is prominent but unchanged. No measurable pleural effusion and no pneumothorax. No acute bony abnormality seen. No acute aortic findings suspected. IMPRESSION: Stable lung parenchymal pattern. No new or progressive process. Stable, prominent cardiomegaly.
[2022-01-12] MEDS: FUROSEMIDE 40 MG/4 ML VIAL IV SCH (09:00)
[2022-01-12] MEDS: HOME MED 1 EA UNK (Cyclosporine [Restasis] Droperette) OPTH SCH ×2 (09:00→21:00)
[2022-01-12] MEDS: HOME MED 1 EA UNK (Fluticasone/Umeclidin/Vilanter [Trelegy Ellipta 100-62.5-25] Blst.W.Dev IH SCH (09:00)
[2022-01-12] MEDS: TAFLUPROST OPTH SCH (09:00)
--- NOTE | 2022-01-12 10:02 | P.PN ---
Subjective Date of Service: 01/12/22 Chief Complaint: Chest congestion pneumonia And complaining of cough congestion no change since IV antibiotics his white count is now normalized Review of Systems General: Weakness Respiratory: Cough, Shortness of Breath Physical Examination - Vital Signs Temperature: 96.8 F Blood Pressure: 144/88 Pulse: 87 Respirations: 18 Pulse Ox (%): 95 - Physical Exam General: Alert, Mild distress Respiratory: Diminished, Expiratory wheezes Cardiovascular: No edema, Regular rate/rhythm Assessment And Plan - Current Problems (Diagnosis) (1) Coronavirus infection Current Visit: Yes Status: Acute Plan: Patient tested positive for coronavirus infection (2) Pneumonia Current Visit: Yes Status: Acute Plan: Been complaining of cough congestion continue with IV antibiotic sputum cultures are pending patient is now on levofloxacin and doxycycline patient lost his IV access changed to p.o. Lasix Qualifiers: Laterality: bilateral Physician Review: Patient Assessed, Agree with Above Assessment and Plan
[2022-01-12] MEDS: levoFLOXacin 500 MG TAB PO SCH (10:06)
[2022-01-12] MEDS: ASPIRIN EC 81 MG TAB PO SCH (10:06)
[2022-01-12] MEDS: ASCORBIC ACID 500 MG TABLET PO SCH ×2 (10:06→21:01)
[2022-01-12] MEDS: POTASSIUM CL SA 10 MEQ TAB PO SCH (10:07)
[2022-01-12] MEDS: MONTELUKAST 10 MG TAB PO SCH (10:07)
[2022-01-12] MEDS: allopurinoL 100 MG TAB PO SCH ×2 (10:07→21:01)
[2022-01-12] MEDS: DIGOXIN 0.125 MG TABLET PO SCH (10:07)
[2022-01-12] MEDS: DOXYCYCLINE 100 MG CAP PO SCH ×2 (10:07→21:00)
[2022-01-12] MEDS: DULOXETINE 30 MG CAP PO SCH (10:07)
[2022-01-12] MEDS: THIAMINE HCL 100 MG TABLET PO SCH (10:07)
[2022-01-12] MEDS: LABETALOL HCL 100 MG TAB PO SCH ×2 (10:07→21:00)
[2022-01-12] MEDS: SPIRONOLACTONE 25 MG TABLET PO SCH (10:07)
[2022-01-12] MEDS: CLOPIDOGREL 75 MG TABLET PO SCH (10:07)
[2022-01-12] MEDS: predniSONE 20 MG TAB PO SCH ×2 (10:07→21:00)
[2022-01-12] MEDS: HOME MED 1 EA UNK (Mycophenolate Mofetil [Mycophenolate Mofetil] 500 MG Tablet) PO SCH ×2 (10:08→21:00)
[2022-01-12] MEDS: BRIMONIDINE TARTRATE 0.15% OPTH SCH ×2 (10:08→21:00)
[2022-01-12] MEDS: ENOXAPARIN 40 MG/0.4 ML SQ SCH (10:09)
[2022-01-12] MEDS: HOME MED 1 EA UNK (Tacrolimus [Prograf] 1 MG Capsule) PO SCH ×2 (10:09→21:00)
[2022-01-12] MEDS: PRIMIDONE 50 MG TAB PO SCH ×3 (10:11→21:00)
[2022-01-12] MEDS: PANTOPRAZOLE 40MG TABLET PO SCH ×2 (10:11→21:00)
--- NOTE | 2022-01-12 15:12 | P.PN ---
Subjective Date of Service: 01/12/22 Chief Complaint: Chest congestion pneumonia No acute events overnight. He reports persistent shortness of breath and cough. He denies any chest pain or palpitations. Review of Systems 10-point ROS is otherwise unremarkable Respiratory: Cough, Dry, Shortness of Breath Physical Examination - Vital Signs Temperature: 97.0 F Blood Pressure: 145/87 Pulse: 86 Respirations: 16 Pulse Ox (%): 94 - Physical Exam General: Alert, Oriented x3, Mild distress HEENT: Atraumatic, PERRLA, Mucous membr. moist/pink, EOMI, Sclerae nonicteric Neck: Supple, JVD not distended Respiratory: Diminished, Rhonchi/gurgles Cardiovascular: Regular rate/rhythm, Normal S1 S2, No gallops, No rubs, No murmurs, Edema (1+) Gastrointestinal: Normal bowel sounds, Soft and benign, Non-distended, No tenderness, No rebound, No guarding Musculoskeletal: No clubbing Integumentary: No rashes Neurological: Normal speech, Cranial nerves 3-12 intact, Normal affect Assessment And Plan - Plan # Acute Chronic Obstructive Pulmonary Disease Exacerbation # Possible Mild Acute on Chronic Decompensated Diastolic Congestive Heart Failure with Preserved Ejection Fraction # Suspected COVID-19 Pneumonia Currently, he is on 2 L nasal cannula, with improvement of his SpO2 readings to 96 %. - Evaluation thus far: - COVID-19 positive - Procalcitonin <0.05 - Chest x-ray (01/12) = "stable lung parenchymal pattern. No new or progressive process. Stable, prominent cardiomegaly." - Management plan: - Pulmonary Medicine consulted and spoke with Dr. Kitchen- recommendations appreciated - Steroids and bronchodilators per Pulm - Consulted Respiratory Therapy - Continue levofloxacin + doxycyline for now - Continue furosemide - Supplemental oxygen to maintain SpO2 > 92% - Encouraged incentive spirometry - PRN benzonatate, guaifenesin - Isolation precautions # Chronic Atrial Fibrillation s/p Watchman Device # Severe Aortic Stenosis s/p Transcatheter Aortic Valve Replacement - Continue home digoxin and labetalol, not on anticoagulation due to Watchman # History of Renal Transplant - Continue home tacrolimus, mycophenelate, prednisone # Coronary Artery Disease s/p PCI to LAD (2020) # Hypertension # Hyperlipidemia - Continua aspirin, rosuvastatin, labetalol, clopidogrel # Obstructive Sleep Apnea - May use home CPAP # Gastroesophageal Reflux Disease - Continue home pantoprazole # Gout - Continue home allopurinol Felix Veloz M.D.
[2022-01-12] MEDS ORDERED: guaiFENesin 100 MG/5 ML UCUP PO PRN (15:33)
[2022-01-12] MEDS ORDERED: BENZONATATE 100 MG CAP PO PRN (15:33)
[2022-01-12] MEDS: FUROSEMIDE 40 MG TABLET PO SCH (16:51)
[2022-01-12] MEDS: CHOLESTYRAMINE/ASP 4 GM/PKT PO SCH (20:59)
[2022-01-12] MEDS: ROSUVASTATIN 10 MG TAB PO SCH (20:59)
[2022-01-13] MEDS: ALBUTEROL 2.5 MG/3 ML NEB SOL NEB SCH ×4 (01:30→20:20)
[2022-01-13] MEDS: IPRATROPIUM BROM 0.5MG/2.5ML NEB SCH ×4 (01:30→20:20)
[2022-01-13] MEDS: SPIRONOLACTONE 25 MG TABLET PO SCH (08:32)
[2022-01-13] MEDS: CLOPIDOGREL 75 MG TABLET PO SCH (08:32)
[2022-01-13] MEDS: DULOXETINE 30 MG CAP PO SCH (08:32)
[2022-01-13] MEDS: levoFLOXacin 500 MG TAB PO SCH (08:32)
[2022-01-13] MEDS: DIGOXIN 0.125 MG TABLET PO SCH (08:32)
[2022-01-13] MEDS: predniSONE 20 MG TAB PO SCH ×2 (08:32→20:18)
[2022-01-13] MEDS: LABETALOL HCL 100 MG TAB PO SCH ×2 (08:32→20:19)
[2022-01-13] MEDS: ASCORBIC ACID 500 MG TABLET PO SCH ×2 (08:32→20:20)
[2022-01-13] MEDS: PRIMIDONE 50 MG TAB PO SCH ×3 (08:32→20:18)
[2022-01-13] MEDS: MONTELUKAST 10 MG TAB PO SCH (08:32)
[2022-01-13] MEDS: DOXYCYCLINE 100 MG CAP PO SCH ×2 (08:32→20:20)
[2022-01-13] MEDS: allopurinoL 100 MG TAB PO SCH ×2 (08:32→20:20)
[2022-01-13] MEDS: FUROSEMIDE 40 MG TABLET PO SCH ×2 (08:32→17:31)
[2022-01-13] MEDS: POTASSIUM CL SA 10 MEQ TAB PO SCH (08:32)
[2022-01-13] MEDS: ASPIRIN EC 81 MG TAB PO SCH (08:32)
[2022-01-13] MEDS: THIAMINE HCL 100 MG TABLET PO SCH (08:32)
[2022-01-13] MEDS: BRIMONIDINE TARTRATE 0.15% OPTH SCH ×2 (08:33→20:38)
[2022-01-13] MEDS: HOME MED 1 EA UNK (Mycophenolate Mofetil [Mycophenolate Mofetil] 500 MG Tablet) PO SCH ×2 (08:33→20:38)
[2022-01-13] MEDS: HOME MED 1 EA UNK (Fluticasone/Umeclidin/Vilanter [Trelegy Ellipta 100-62.5-25] Blst.W.Dev IH SCH (08:33)
[2022-01-13] MEDS: HOME MED 1 EA UNK (Cyclosporine [Restasis] Droperette) OPTH SCH ×2 (08:33→20:38)
[2022-01-13] MEDS: PANTOPRAZOLE 40MG TABLET PO SCH ×2 (08:33→20:19)
[2022-01-13] MEDS: ENOXAPARIN 40 MG/0.4 ML SQ SCH (08:33)
[2022-01-13] MEDS: TAFLUPROST OPTH SCH (08:34)
[2022-01-13] MEDS: HOME MED 1 EA UNK (Tacrolimus [Prograf] 1 MG Capsule) PO SCH ×2 (08:34→20:38)
--- NOTE | 2022-01-13 11:52 | P.PN ---
Subjective Date of Service: 01/13/22 Chief Complaint: Chest congestion pneumonia No acute events overnight. He states that he feels that his shortness of breath and cough are gradually improving. He denies any chest pain or palpitations. He endorses generalized weakness. Review of Systems 10-point ROS is otherwise unremarkable General: Weakness (generalized) Respiratory: Cough, Dry, Shortness of Breath Physical Examination - Vital Signs Temperature: 98.2 F Blood Pressure: 156/92 Pulse: 87 Respirations: 22 Pulse Ox (%): 95 Assessment And Plan - Plan - Physical Exam General: Alert, Oriented x3, No distress HEENT: Atraumatic, PERRLA, Mucous membr. moist/pink, EOMI, Sclerae nonicteric Neck: Supple, JVD not distended Respiratory: Diminished, with faint rhonchi. Otherwise, clear to ausculation bilaterally. Cardiovascular: Regular rate/rhythm, Normal S1 S2, No gallops, No rubs, No murmurs, Edema (1+) Gastrointestinal: Normal bowel sounds, Soft and benign, Non-distended, No tenderness, No rebound, No guarding Musculoskeletal: No clubbing Integumentary: No rashes Neurological: Normal speech, Cranial nerves 3-12 intact, Normal affect # Acute Chronic Obstructive Pulmonary Disease Exacerbation # Possible Mild Acute on Chronic Decompensated Diastolic Congestive Heart Failure with Preserved Ejection Fraction # Suspected COVID-19 Pneumonia Currently, he is on 2 L nasal cannula, with improvement of his SpO2 readings to 95 %. - Evaluation thus far: - COVID-19 positive - Procalcitonin <0.05 - Chest x-ray (01/12) = "stable lung parenchymal pattern. No new or progressive process. Stable, prominent cardiomegaly." - Management plan: - Pulmonary Medicine consulted and spoke with Dr. Kitchen- recommendations appreciated - Steroids and bronchodilators per Pulm - Consulted Respiratory Therapy - Continue levofloxacin + doxycyline for now - Continue furosemide - Supplemental oxygen to maintain SpO2 > 92% - Encouraged incentive spirometry - PRN benzonatate, guaifenesin - Isolation precautions # Deconditioning - PT consulted - recommendations appreciated # Chronic Atrial Fibrillation s/p Watchman Device # Severe Aortic Stenosis s/p Transcatheter Aortic Valve Replacement - Continue home digoxin and labetalol, not on anticoagulation due to Watchman # History of Renal Transplant - Continue home tacrolimus, mycophenelate, prednisone # Coronary Artery Disease s/p PCI to LAD (2020) # Hypertension # Hyperlipidemia - Continua aspirin, rosuvastatin, labetalol, clopidogrel # Obstructive Sleep Apnea - May use home CPAP # Gastroesophageal Reflux Disease - Continue home pantoprazole # Gout - Continue home allopurinol Felix Veloz M.D.
[2022-01-13] MEDS: ROSUVASTATIN 10 MG TAB PO SCH (20:18)
[2022-01-13] MEDS: CHOLESTYRAMINE/ASP 4 GM/PKT PO SCH (20:19)
[2022-01-13 22:23] VITALS: O2SAT 2
[2022-01-14] MEDS: IPRATROPIUM BROM 0.5MG/2.5ML NEB SCH (01:30)
[2022-01-14] MEDS: ALBUTEROL 2.5 MG/3 ML NEB SOL NEB SCH (01:30)
--- NOTE | 2022-01-14 08:08 | P.DS ---
Admission Date: 01/08/22 Discharge Date: 01/14/22 Disposition: ROUTINE DISCHARGE Discharge Condition: GOOD Reason for Admission: Chest congestion pneumonia Consultations: 1. Pulmonary Medicine Hospital Course: DIAGNOSES: # Acute Chronic Obstructive Pulmonary Disease Exacerbation # Possible Mild Acute on Chronic Decompensated Diastolic Congestive Heart Failure with Preserved Ejection Fraction # Suspected COVID-19 Pneumonia # Chronic Atrial Fibrillation s/p Watchman Device # Severe Aortic Stenosis s/p Transcatheter Aortic Valve Replacement # History of Renal Transplant # Coronary Artery Disease s/p PCI to LAD (2020) # Hypertension # Hyperlipidemia # Obstructive Sleep Apnea # Gastroesophageal Reflux Disease # Gout HOSPITAL COURSE: Mr. Yunior Lewis is a 76 year old male with a past medical history significant for chronic obstructive pulmonary disease, chronic diastolic congestive heart failure, chronic atrial fibrillation s/p Watchman, severe aortic stenosis s/p TAVR, coronary artery disease s/p PCI, hypertension, hyperlipidemia, gastroesophageal reflux disease, gout, and prior renal transplant who was admitted to the [facility] on 01/08/2022 for shortness of breath. He was admitted to the Medicine service. He was found to have an acute COPD and CHF exacerbation. He was also noted to have COVID-19 pneumonia. Pulmonary Medicine was consulted and he was evaluated by Dr. Kitchen. He was treated with IV antibiotics, steroids, diuretics, and bronchodilators per Pulmonary recommendations. Over the course of his hospitalization, his symptoms improved significantly. He was evaluated by physical therapy and he was deemed stable to be discharged home from their standpoint. This morning, he reported that he felt significantly better and felt that he was ready to be discharged home. I spoke with Dr. Kitchen, who has cleared him for discharge home with levofloxacin, doxycycline, and prednisone. On 01/14/2022, he was seen on morning rounds and deemed medically stable for discharge. He was discharged with instructions to schedule follow-up appointments with his PCP (Dr. Almendarez) and with Pulmonary Medicine (Dr. Kitchen). He was provided prescriptions for levofloxacin, doxycycline, prednisone, and bezonatate. He was given the opportunity to ask questions and reported no further questions. Furthermore, all questions were answered to the best of my ability. A copy of this discharge summary will be sent to the above providers to facilitate continuity of care. Today, I personally spent 25 minutes on his case, of which greater than 50% of the time was spent in patient education, counseling, and coordination of care as described above. - Physical Exam General: Alert, Oriented x3, No distress HEENT: Atraumatic, PERRLA, Mucous membr. moist/pink, EOMI, Sclerae nonicteric Neck: Supple, JVD not distended Respiratory: Diminished, but otherwise clear to auscultation bilaterally. Cardiovascular: Regular rate/rhythm, Normal S1 S2, No gallops, No rubs, No murmurs, Edema (1+) Gastrointestinal: Normal bowel sounds, Soft and benign, Non-distended, No tenderness, No rebound, No guarding Musculoskeletal: No clubbing Integumentary: No rashes Neurological: Normal speech, Cranial nerves 3-12 intact, Normal affect Vital Signs/Physical Exam: Temp Pulse Resp BP Pulse Ox 97.4 F 76 19 149/86 H 94 01/14/22 04:00 01/14/22 04:00 01/14/22 04:00 01/14/22 04:00 01/14/22 04:00 Laboratory Data at Discharge: WBC 3.70 K/uL (4.3-10.9) L 01/12/22 05:34 Hgb 14.6 g/dL (13.6-17.9) 01/12/22 05:34 Hct 44.8 % (39.6-49.0) 01/12/22 05:34 Plt Count 143 K/uL (152-406) L 01/12/22 05:34 PT 10.3 SECONDS (9.5-12.5) 01/08/22 15:40 INR 0.94 01/08/22 15:40 APTT 28.2 SECONDS (24.3-36.9) 01/08/22 15:40 Sodium 135 mmol/L (136-145) L 01/12/22 05:34 Potassium 4.2 mmol/L (3.5-5.1) 01/12/22 05:34 BUN 38 mg/dL (7-18) H 01/12/22 05:34 Creatinine 0.75 mg/dL (0.55-1.3) 01/12/22 05:34 Glucose 143 mg/dL (74-106) H 01/12/22 05:34 Phosphorus 3.1 mg/dL (2.5-4.9) 01/08/22 15:40 Magnesium 2.0 mg/dL (1.8-2.4) 01/12/22 05:34 Total Bilirubin 0.7 mg/dL (0.2-1.0) 01/12/22 05:34 AST 25 U/L (15-37) 01/12/22 05:34 ALT 30 U/L (12-78) 01/12/22 05:34 Alkaline Phosphatase 53 U/L (45-117) 01/12/22 05:34 Home Medications: RX: Allopurinol 100 mg PO BID 07/19/20 RX: Diclofenac Sodium [Voltaren] 1 g TOP TIDP PRN 07/19/20 RX: Digoxin [Lanoxin*] 0.125 mg PO DAILY 07/19/20 RX: Duloxetine HCl [Cymbalta] 30 mg PO DAILY 07/19/20 RX: Furosemide [Lasix*] 40 mg PO BIDL 07/19/20 RX: Labetalol HCl [Trandate] 200 mg PO BID 07/19/20 RX: Montelukast [Singulair*] 10 mg PO DAILY 07/19/20 RX: Pantoprazole Sodium [Protonix] 40 mg PO BID 07/19/20 RX: Potassium Oral Tab [Klor-Con 10 mEq Tab*] 10 meq PO DAILY 07/19/20 RX: Primidone 50 mg PO TID 07/19/20 RX: Rosuvastatin [Crestor*] 10 mg PO BEDTIME 07/19/20 RX: Spironolactone 50 mg PO DAILY 07/19/20 RX: Tacrolimus [Prograf] 3 mg PO BID 07/19/20 RX: mycophenolate mofetiL [Mycophenolate Mofetil] 1,000 mg PO BID 07/19/20 RX: predniSONE [Prednisone*] 5 mg PO DAILY 07/19/20 RX: Clopidogrel Bisulfate [Plavix*] 75 mg PO DAILY 10/30/20 RX: Hydrocodone Bit/Acetaminophen [Hydrocodon-Acetaminoph 7.5-325] 1 each PO TID PRN 10/30/20 RX: Albuterol Neb [Proventil 0.083% Neb Soln] 2.5 mg NEB [id number] #120 amp 11/03/20 RX: Aspirin [Aspirin EC] 1 tab PO DAILY 02/02/21 RX: Cholestyramine [Cholestyramine Resin] 5 gm PO BEDTIME 02/02/21 RX: Fluticasone/Umeclidin/Vilanter [Trelegy Ellipta 100-62.5-25] 1 puff IN DAILY 02/02/21 RX: Insulin Aspart Prot/Insuln Asp [Novolog Mix 70-30 Flexpen] 1 in SQ BID 02/02/21 RX: Brimonidine Tartrate 10 ml OP BID 03/14/21 RX: Carboxymethylcellulos/Glycerin [Refresh Optive Eye Drops] 15 ml OP QID PRN 03/14/21 RX: Carboxymethylcellulose Sodium [Lubricant Eye Drop] 15 ml OP DAILY 03/14/21 RX: Cyclosporine [Restasis] 1 drop EACH EYE BID 03/14/21 RX: Ipratropium [place] 2 spray NS QID 03/14/21 RX: Tafluprost/Pf [Zioptan 0.0015% Eye Drops] 1 each OP DAILY 03/14/21 RX: Albuterol Inhaler [Ventolin Inhaler*] 90 mcg IN QID 01/09/22 RX: Benzonatate [Tessalon Perle*] 100 mg PO TID PRN 7 Days #20 cap 01/14/22 RX: Doxycycline Hyclate 100 mg PO BID 5 Days #10 tab 01/14/22 RX: levoFLOXacin [Levaquin*] 500 mg PO DAILY 5 Days #5 tab 01/14/22 RX: predniSONE [Prednisone*] 20 mg PO BID 5 Days #10 tab 01/14/22 New Medications: RX: Doxycycline Hyclate 100 mg PO BID 5 Days #10 tab RX: levoFLOXacin [Levaquin*] 500 mg PO DAILY 5 Days #5 tab RX: predniSONE [Prednisone*] 20 mg PO BID 5 Days #10 tab RX: Benzonatate [Tessalon Perle*] 100 mg PO TID PRN 7 Days #20 cap PRN Reason: COUGH - 1ST LINE Physician Discharge Instructions: 1. Please schedule a follow-up appointment with your PCP (Dr. Almendarez) in 3-5 days 2. Please schedule a follow-up appointment with Pulmonology (Dr. 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
[2022-01-14] MEDS: ENOXAPARIN 40 MG/0.4 ML SQ SCH (08:53)
[2022-01-14] MEDS: levoFLOXacin 500 MG TAB PO SCH (08:53)
[2022-01-14] MEDS: ASPIRIN EC 81 MG TAB PO SCH (08:53)
[2022-01-14] MEDS: FUROSEMIDE 40 MG TABLET PO SCH (08:53)
[2022-01-14] MEDS: DULOXETINE 30 MG CAP PO SCH (08:53)
[2022-01-14] MEDS: ASCORBIC ACID 500 MG TABLET PO SCH (08:53)
[2022-01-14] MEDS: THIAMINE HCL 100 MG TABLET PO SCH (08:53)
[2022-01-14] MEDS: DOXYCYCLINE 100 MG CAP PO SCH (08:53)
[2022-01-14] MEDS: allopurinoL 100 MG TAB PO SCH (08:53)
[2022-01-14] MEDS: POTASSIUM CL SA 10 MEQ TAB PO SCH (08:54)
[2022-01-14] MEDS: PANTOPRAZOLE 40MG TABLET PO SCH (08:54)
[2022-01-14] MEDS: MONTELUKAST 10 MG TAB PO SCH (08:54)
[2022-01-14] MEDS: CLOPIDOGREL 75 MG TABLET PO SCH (08:54)
[2022-01-14] MEDS: LABETALOL HCL 100 MG TAB PO SCH (08:54)
[2022-01-14] MEDS: predniSONE 20 MG TAB PO SCH (08:54)
[2022-01-14] MEDS: DIGOXIN 0.125 MG TABLET PO SCH (08:54)
[2022-01-14] MEDS: SPIRONOLACTONE 25 MG TABLET PO SCH (08:54)
[2022-01-14] MEDS: PRIMIDONE 50 MG TAB PO SCH (08:57)
[2022-01-14 09:00] VITALS: BP 142/68; TEMP 97.6
[2022-01-14] MEDS: HOME MED 1 EA UNK (Cyclosporine [Restasis] Droperette) OPTH SCH (09:00)
[2022-01-14] MEDS: TAFLUPROST OPTH SCH (09:00)
[2022-01-14] MEDS: HOME MED 1 EA UNK (Fluticasone/Umeclidin/Vilanter [Trelegy Ellipta 100-62.5-25] Blst.W.Dev IH SCH (09:00)
[2022-01-14] MEDS: HOME MED 1 EA UNK (Tacrolimus [Prograf] 1 MG Capsule) PO SCH (09:00)
[2022-01-14] MEDS: HOME MED 1 EA UNK (Mycophenolate Mofetil [Mycophenolate Mofetil] 500 MG Tablet) PO SCH (09:00)
[2022-01-14] MEDS: BRIMONIDINE TARTRATE 0.15% OPTH SCH (09:00)
== END 2022-01-14 11:35 | disposition home health service (06) | DRG 177 ==
LOC: ER 13:53 → ERHOLD 17:21 → 2ND 01-09 14:23
PROVIDERS: ADMIT Hospitalist; ATTEND Internal Medicine
DX: U07.1 COVID-19 (principal); I50.33 Acute on chronic diastolic (congestive) heart failure; J12.89 Other viral pneumonia; Z94.0 Kidney transplant status; J44.1 Chronic obstructive pulmonary disease with (acute) exacerbation; J44.0 Chronic obstructive pulmonary disease with (acute) lower respiratory infection; I13.0 Hypertensive heart and chronic kidney disease with heart failure and stage 1 through stage 4 chronic kidney disease, or unspecified chronic kidney disease; N18.2 Chronic kidney disease, stage 2 (mild); E11.22 Type 2 diabetes mellitus with diabetic chronic kidney disease; E78.5 Hyperlipidemia, unspecified; K21.9 Gastro-esophageal reflux disease without esophagitis; I48.0 Paroxysmal atrial fibrillation; M10.9 Gout, unspecified; H40.9 Unspecified glaucoma; I25.10 Atherosclerotic heart disease of native coronary artery without angina pectoris; G47.33 Obstructive sleep apnea (adult) (pediatric); Z95.5 Presence of coronary angioplasty implant and graft; Z88.8 Allergy status to other drugs, medicaments and biological substances; Z88.0 Allergy status to penicillin; Z95.2 Presence of prosthetic heart valve; Z79.4 Long term (current) use of insulin; Z79.82 Long term (current) use of aspirin; Z79.52 Long term (current) use of systemic steroids; Z90.49 Acquired absence of other specified parts of digestive tract; Z96.641 Presence of right artificial hip joint; Z96.651 Presence of right artificial knee joint; Z79.899 Other long term (current) drug therapy
CPT/HCPCS: 0241U; 36415; 71045; 80048; 80053; 82947; 83605; 83735; 83880; 84100; 84145; 85025; 85610; 85730; 87040; 87070; 87205; 93005; 96365; 96366; 96367; 96375; 97161; 99285; J0360; J0456; J0692; J1644; J1650; J1940; J2185; J2920; J2930; J3475; J7040; J7050; J7512; J7613; J7614; J7644

== ENCOUNTER 2022-06-27 15:24 | Inpatient (IN) | payer OTHER ==
[2022-06-27 16:39] LABS: Absolute Lymphocytes (CBC) 0.3 K/uL (0.7-4.9); Hematocrit 38.3 % (39.6-49.0); Lymphocytes % 2.7 % (15.3-44.8); MCV 88.5 fL (80-100); MPV 8.7 fL (7.6-11.3); RBC Red Blood Cell Count 4.33 M/uL (4.33-5.43)
[2022-06-27 16:58] LABS: Potassium 4.3 mEq/L (3.5-5.1); Troponin High Sensitivity 25.9 pg/mL (<58.9)
--- NOTE | 2022-06-27 17:14 | RAD REPORT ---
EXAM DESCRIPTION: Janell Single View06/27/2022 4:39 pm CLINICAL HISTORY: sob COMPARISON: 2021 FINDINGS: Moderate bilateral pulmonary opacities. Heart is markedly enlarged IMPRESSION: These findings probably indicate CHF
[2022-06-27] MEDS ORDERED: FUROSEMIDE 40 MG/4 ML VIAL ONE (18:04)
--- NOTE | 2022-06-27 18:04 | EDPHYS ---
Physician Documentation [facility] Name: Yunior Lewis Age: 77 yrs Sex: Male : 1945 Arrival Date: 06/27/2022 Time: 15:24 Bed 19 Private MD: ED Physician Cj Jean Baptiste HPI: 06/27 15:40 This 77 yrs old Male presents to ER via Unassigned with complaints of shortness of sk4 breath. 15:40 here for soa x 1-2 weeks. uses 3 liters o2 at home. ems notes sat 88% on three litesr, sk4 put on nrb. pt has had progressive le swelling x 3-4 weeks. is on prednisone 5mg daily after kidney transplant, recently completed 10mg additional daily dose x 2 months. no recent abx. last hospitalized dec 2021 with bilateral pneumonia. + cough with sputum. no chest pain. . Historical: - Allergies: 15:54 Demerol; ld1 15:54 NSAIDS; ld1 15:54 PENICILLINS; ld1 15:54 Warfarin; ld1 - PMHx: 15:54 CHF; COPD; Diabetes - IDDM; gastritis; Heart Murmur; Hyperlipidemia; Hypertension; ld1 Sleep Apnea; - PSHx: 15:54 kidney transplant; watchman; ld1 - Immunization history:: Adult Immunizations up to date, Client reports receiving the 2nd dose of the Covid vaccine. - Social history:: Smoking status: Patient denies any tobacco usage or history of. Patient/guardian denies using alcohol. ROS: 15:40 Constitutional: Negative for fever, chills, and weight loss. sk4 15:40 Respiratory: Positive for cough, shortness of breath. Exam: 15:40 Constitutional: This is a well developed, well nourished patient who is awake, alert, sk4 and in no acute distress. Chest/axilla: Normal chest wall appearance and motion. Nontender with no deformity. No lesions are appreciated. Cardiovascular: Regular rate and rhythm with a normal S1 and S2. No gallops, murmurs, or rubs. Normal PMI, no JVD. No pulse deficits. 15:40 Abdomen/GI: Soft, non-tender Skin: Warm, dry with normal turgor. Normal color with no rashes, no lesions, and no evidence of cellulitis. MS/ Extremity: Pulses equal, no cyanosis. Neurovascular intact. Full, normal range of motion. 15:40 Respiratory: Breath sounds: rales. Vital Signs: 15:53 BP 133 / 76; Pulse 84; Resp 20; Temp 98.1(O); Pulse Ox 100% on 12 lpm Non-rebreather ld1 mask; Weight 98.88 kg; Height 5 ft. 11 in. ; Pain 0/10; 16:19 BP 136 / 75; Pulse 78; Resp 18; Pulse Ox 100% on R/A; ld1 18:02 BP 134 / 83; Pulse 79; Resp 19; Pulse Ox 100% on 3 lpm NC; ld1 19:02 BP 132 / 71; Pulse 77; Resp 22; Pulse Ox 97% on NC; jj7 20:24 BP 135 / 66; Pulse 88; Resp 17; Pulse Ox 96% on 3 lpm NC; jj7 15:53 Body Mass Index 30.40 (98.88 kg, 180.34 cm) ld1 15:53 Pain Scale: Adult ld1 MDM: 15:40 Differential Diagnosis pna, copd exac, chf exac, acs, renal failure, electrolyte abn. [facility] [email or web address]] Data reviewed: vital signs, nurses notes, lab test result(s), EKG, radiologic studies. 18:01 Consideration of Admission/Observation Patient was admitted/placed on observation. [facility] [email or web address]] Management of patient was discussed with the following: Hospitalist: MALVIN Ross. Historians other than the Patient: Daughter/Son: daughter. ED course: remains stable.xray with fluid overload. no signs of pna. iv lasix ordered. creat noted. . 18:03 Patient medically screened. [facility] [email or web address]] 06/27 15:38 Order name: Basic Metabolic Panel; Complete Time: 17:04 [facility] [email or web address]] 06/27 15:38 Order name: CBC with Diff; Complete Time: 17:04 [facility] [[email or web address]] 06/27 15:38 Order name: NT PRO-BNP; Complete Time: 17:04 [facility] [[email or web address]] 06/27 15:38 Order name: Troponin HS; Complete Time: 17:04 [facility] [[email or web address]] 06/27 15:39 Order name: Blood Culture Adult (2): to hold [facility] [[email or web address]] 06/27 15:39 Order name: Lactate w/ 2H reflex if indic.; Complete Time: 17:04 [facility] [[email or web address]] 06/27 15:38 Order name: XRAY Chest (1 view); Complete Time: 17:35 sk4 06/27 19:54 Order name: Extremity Venous Uni Ltd US; Complete Time: 20:47 sb4 06/27 20:49 Order name: Chest For PE Angio CT sb4 06/27 15:38 Order name: EKG; Complete Time: 15:39 sk4 06/27 15:38 Order name: Cardiac monitoring; Complete Time: 15:53 sk4 06/27 15:38 Order name: EKG - Nurse/Tech; Complete Time: 15:53 sk4 06/27 15:38 Order name: IV Saline Lock; Complete Time: 15:53 sk4 06/27 15:38 Order name: Labs collected and sent; Complete Time: 16:44 sk4 06/27 15:38 Order name: O2 Per Protocol; Complete Time: 15:53 sk4 06/27 15:38 Order name: O2 Sat Monitoring; Complete Time: 15:53 sk4 Administered Medications: 18:02 Drug: Furosemide IVP 40 mg Route: IVP; Site: right antecubital; ld1 Disposition Summary: 06/27/22 18:03 Hospitalization Ordered Hospitalization Status: Inpatient Admission 4 Provider: Carmen Jean Baptiste Location: Telemetry/MedSurg (Inpatient) 4 Condition: Stable 4 Problem: an acute exacerbation sk4 Symptoms: have improved sk4 Bed/Room Type: Standard [facility] [email or web address]] Room Assignment: 214(06/27/22 19:57) cg Diagnosis - Acute on chronic systolic (congestive) heart failure 4 Forms: - Medication Reconciliation Form 4 - SBAR form 4 Signatures: Dispatcher [employer] Marilyn Card, RN RN cg Deisi Bass RN RN ld1 Lashae Echavarria PA-C PA-C [facility] Cj Jean Baptiste [facility] [[email or web address]] Corrections: (The following items were deleted from the chart) 19:57 18:03 sk4 cg
--- NOTE | 2022-06-27 18:04 | ER ---
Nurse's Notes [facility] Name: Yunior Lewis Age: 77 yrs Sex: Male : 1945 Arrival Date: 06/27/2022 Time: 15:24 Bed 19 Private MD: Diagnosis: Acute on chronic systolic (congestive) heart failure Presentation: 06/27 15:53 Chief complaint: EMS states: toned out to patient home for SOB - pt reports using 3L NC ld1 daily - Pt SpO2 88% on 3L NC. Coronavirus screen: At this time, the client does not indicate any symptoms associated with coronavirus-19. Ebola Screen: No symptoms or risks identified at this time. Initial Sepsis Screen: Does the patient meet any 2 criteria? No. Patient's initial sepsis screen is negative. Does the patient have a suspected source of infection? No. Patient's initial sepsis screen is negative. Risk Assessment: Do you want to hurt yourself or someone else? Patient reports no desire to harm self or others. Onset of symptoms was June 27, 2022. 15:53 Method Of Arrival: EMS: [facility] ld1 15:53 Acuity: JAQUAN 3 ld1 Triage Assessment: 15:54 General: Appears in no apparent distress. comfortable, Behavior is calm, cooperative, ld1 appropriate for age. Pain: Denies pain. EENT: No signs and/or symptoms were reported regarding the EENT system. Neuro: Level of Consciousness is awake, alert, obeys commands, Oriented to person, place, time, situation. Cardiovascular: Capillary refill < 3 seconds Patient's skin is warm and dry. Rhythm is sinus rhythm. Respiratory: Reports shortness of breath Airway is patent Respiratory effort is even, unlabored. GI: Abdomen is round non-distended. : No signs and/or symptoms were reported regarding the genitourinary system. Derm: No signs and/or symptoms reported regarding the dermatologic system. Musculoskeletal: No signs and/or symptoms reported regarding the musculoskeletal system. Historical: - Allergies: 15:54 Demerol; ld1 15:54 NSAIDS; ld1 15:54 PENICILLINS; ld1 15:54 Warfarin; ld1 - PMHx: 15:54 CHF; COPD; Diabetes - IDDM; gastritis; Heart Murmur; Hyperlipidemia; Hypertension; ld1 Sleep Apnea; - PSHx: 15:54 kidney transplant; watchman; ld1 - Immunization history:: Adult Immunizations up to date, Client reports receiving the 2nd dose of the Covid vaccine. - Social history:: Smoking status: Patient denies any tobacco usage or history of. Patient/guardian denies using alcohol. Screenin:[facility] ED Fall Risk Assessment (Adult) History of falling in the last 3 months, ld1 including since admission No falls in past 3 months (0 pts). Abuse screen: Denies threats or abuse. Denies injuries from another. Nutritional screening: No deficits noted. Tuberculosis screening: No symptoms or risk factors identified. Assessment: 15:56 Reassessment: See triage assessment. ld1 18:02 Reassessment: Patient appears in no apparent distress at this time. No changes from ld1 previously documented assessment. Patient and/or family updated on plan of care and expected duration. Pain level reassessed. Patient is alert, oriented x 3, equal unlabored respirations, skin warm/dry/pink. 19:02 Reassessment: ASSUMED CARE OF PT. PT LYING IN BED. DAUGHTER AT BEDSIDE. NO DISTRESS jj7 NOTED. STATES HE IS READY FOR THE SANDWICH. SANDWICH PROVIDED. NO PAIN OR ADDITIONAL NEEDS AT THIS TIME VS STABLE. CALL SIMENTAL IN REACH. INFORMED IF PLAN OF CARE. PT ADMITTED AND AWAITING BED ASSIGNMENT. Vital Signs: 15:53 BP 133 / 76; Pulse 84; Resp 20; Temp 98.1(O); Pulse Ox 100% on 12 lpm Non-rebreather ld1 mask; Weight 98.88 kg; Height 5 ft. 11 in. ; Pain 0/10; 16:19 BP 136 / 75; Pulse 78; Resp 18; Pulse Ox 100% on R/A; ld1 18:02 BP 134 / 83; Pulse 79; Resp 19; Pulse Ox 100% on 3 lpm NC; ld1 19:02 BP 132 / 71; Pulse 77; Resp 22; Pulse Ox 97% on NC; jj7 20:24 BP 135 / 66; Pulse 88; Resp 17; Pulse Ox 96% on 3 lpm NC; jj7 15:53 Body Mass Index 30.40 (98.88 kg, 180.34 cm) ld1 15:53 Pain Scale: Adult ld1 ED Course: 15:28 Patient arrived in ED. bd 15:29 Cj Jean Baptiste is Attending Physician. sk4 15:53 Deisi Bass, RN is Primary Nurse. ld1 15:54 Triage completed. ld1 15:54 Arm band placed on. EKG completed in triage. Results shown to MD. ld1 15:56 Patient has correct armband on for positive identification. Placed in gown. Bed in low ld1 position. Call light in reach. Side rails up X2. telephone sex worker on. Pulse ox on. NIBP on. Door closed. Noise minimized. Warm blanket given. 15:56 No provider procedures requiring assistance completed. Maintain EMS IV. Dressing ld1 intact. Good blood return noted. Site clean \T\ dry. Gauge \T\ site: 20G RW. 16:25 Inserted saline lock: 20 gauge in right antecubital area, using aseptic technique. zm Blood collected. 16:25 First set of blood cultures drawn by me. zm 16:40 Second set of blood cultures drawn by me. zm 16:41 XRAY Chest (1 view) In Process Unspecified. EDMS 18:03 Carmen Jean Baptiste MD is Hospitalizing Provider. sk4 20:20 Extremity Venous Uni Ltd US In Process Unspecified. EDMS 20:27 Patient admitted, IV remains in place. jj7 Administered Medications: 18:02 Drug: Furosemide IVP 40 mg Route: IVP; Site: right antecubital; ld1 Medication: 15:56 VIS not applicable for this client. ld1 Output: 18:02 Urine: 600ml (Voided); Total: 600ml. ld1 Outcome: 18:03 Decision to Hospitalize by Provider. sk4 20:25 Admitted to Med/surg accompanied by tech, via stretcher, room 214, Report called to nancy WELCH RN 20:26 Condition: good nancy 20:51 Patient left the ED. nancy Signatures: Dispatcher [employer] EDMS Abena Baird Lauren, RN RN [email or web address] Shira Giordano Juwairiyah, RN RN Cj Avendaño sk4 Corrections: (The following items were deleted from the chart) 17:32 17:31 Inserted saline lock: 20 gauge in right antecubital area, using aseptic technique. Blood collected. zm
--- NOTE | 2022-06-27 19:33 | P.HP ---
Certification for Inpatient Patient admitted to: Observation With expected LOS: <2 Midnights Patient will require the following post-hospital care: None Practitioner: I am a practitioner with admitting privileges, knowledge of patient current condition, hospital course, and medical plan of care. Services: Services provided to patient in accordance with Admission requirements found in Title 42 Section 412.3 of the Code of Federal Regulations Patient History Date of Service: 06/27/22 Primary Care Provider: Tanesha Reason for admission: CHF Exacerbation History of Present Illness: Mr. Lewis is a 77 year old male with past medical history of insulin dependent type 2 diabetes, atrial fibrillation s/p watchman, aortic stenosis s/p TAVR, kidney transplant, hypertension, chronic diastolic CHF, and COPD chronically on 3L NC who presented to the emergency department via EMS with complaints of worsening shortness of breath x 1 week. He reports compliance with his lasix but has recently finished a month of prednisone for COPD exacerbation. Per EMS, he was saturating 84% on 3L upon arrival and placed on nonrebreather. Today his l abs are significant for BNP 3224. Chest xray showed mild CHF. Left leg more erythematous and warm, ultrasound showed "Nonocclusive acute thrombus left popliteal vein." Chest CTA pending. He was given 40 mg IV lasix & started on lovenox in the emergency department. Breathing has improved. ED provider wishes to admit patient for further management. Allergies NSAIDS (Non-Steroidal Anti-Inflamma Allergy (Verified 02/02/21 09:06) stomach pains Penicillins Allergy (Verified 02/02/21 09:06) Itching/Hives/Rash aspirin Adverse Reaction (Verified 02/02/21 09:06) Rash warfarin Adverse Reaction (Verified 06/27/22 20:52) Rash Home medications list reviewed: Yes Home Medications: Allopurinol 100 mg PO BID 07/19/20 Diclofenac Sodium [Voltaren] 1 g TOP TIDP PRN 07/19/20 Digoxin [Lanoxin*] 0.125 mg PO DAILY 07/19/20 Duloxetine HCl [Cymbalta] 30 mg PO DAILY 07/19/20 Furosemide [Lasix*] 40 mg PO BIDL 07/19/20 Labetalol HCl [Trandate] 200 mg PO BID 07/19/20 Montelukast [Singulair*] 10 mg PO DAILY 07/19/20 Pantoprazole Sodium [Protonix] 40 mg PO BID 07/19/20 Potassium Oral Tab [Klor-Con 10 mEq Tab*] 10 meq PO DAILY 07/19/20 Primidone 50 mg PO TID 07/19/20 Rosuvastatin [Crestor*] 10 mg PO BEDTIME 07/19/20 Spironolactone 50 mg PO DAILY 07/19/20 Tacrolimus [Prograf] 3 mg PO BID 07/19/20 mycophenolate mofetiL [Mycophenolate Mofetil] 1,000 mg PO BID 07/19/20 predniSONE [Prednisone*] 5 mg PO DAILY 07/19/20 Clopidogrel Bisulfate [Plavix*] 75 mg PO DAILY 10/30/20 Hydrocodone Bit/Acetaminophen [Hydrocodon-Acetaminoph 7.5-325] 1 each PO TID PRN 10/30/20 Albuterol Neb [Proventil 0.083% Neb Soln] 2.5 mg NEB [id number] #120 amp 11/03/20 Aspirin [Aspirin EC] 1 tab PO DAILY 02/02/21 Cholestyramine [Cholestyramine Resin] 5 gm PO BEDTIME 02/02/21 Fluticasone/Umeclidin/Vilanter [Trelegy Ellipta 100-62.5-25] 1 puff IN DAILY 02/02/21 Insulin Aspart Prot/Insuln Asp [Novolog Mix 70-30 Flexpen] 1 in SQ BID 02/02/21 Brimonidine Tartrate 10 ml OP BID 03/14/21 Carboxymethylcellulos/Glycerin [Refresh Optive Eye Drops] 15 ml OP QID PRN 03/14/21 Carboxymethylcellulose Sodium [Lubricant Eye Drop] 15 ml OP DAILY 03/14/21 Cyclosporine [Restasis] 1 drop EACH EYE BID 03/14/21 Ipratropium [place] 2 spray NS QID 03/14/21 Tafluprost/Pf [Zioptan 0.0015% Eye Drops] 1 each OP DAILY 03/14/21 Albuterol Inhaler [Ventolin Inhaler*] 90 mcg IN QID 01/09/22 Benzonatate [Tessalon Perle*] 100 mg PO TID PRN 7 Days #20 cap 01/14/22 Doxycycline Hyclate 100 mg PO BID 5 Days #10 tab 01/14/22 levoFLOXacin [Levaquin*] 500 mg PO DAILY 5 Days #5 tab 01/14/22 predniSONE [Prednisone*] 20 mg PO BID 5 Days #10 tab 01/14/22 - Past Medical/Surgical History Diabetic: Yes -: Diabetes mellitus type 2 -: COPD -: CHF -: Atrial fibrillation with history of watchman procedure -: History aortic stenosis status post TAVR -: GERD -: HTN -: Gout -: Hyperlipidemia -: CAD status post stent LAD 2020 -: History of kidney transplant on antirejection medication -: R KNEE REPLACEMENT -: KIDNEY TRANSPLANT -: 40% STOMACH REMOVAL -: CARPAL TUNNEL REPAIR -: Rt Hip Replacement -: Skin graft to nose -: Cholecystectomy -: Appendectomy Psychosocial/ Personal History: Patient lives at home - Family History Father -: Heart disease, Hypertension, Diabetes Mother -: Hypertension, Stroke - Social History Smoking Status: Former smoker Alcohol use: Yes CD- Drugs: No Caffeine use: Yes Place of Residence: Home Review of Systems Respiratory: Shortness of Breath Cardiovascular: Edema Physical Examination - Vital Signs Temperature: 98.1 F Blood Pressure: 134/83 Pulse: 79 Respirations: 19 Pulse Ox (%): 100 (3L NC) - Physical Exam General: Alert, In no apparent distress HEENT: Atraumatic, EOMI, Sclerae nonicteric Neck: Supple, 2+ carotid pulse no bruit Respiratory: Clear to auscultation bilaterally, Normal air movement Cardiovascular: Regular rate/rhythm, Normal S1 S2, Edema Gastrointestinal: Normal bowel sounds, No tenderness Musculoskeletal: No tenderness Integumentary: Other (left calf warm, erythematous) Neurological: Normal speech, Normal affect - Studies Laboratory Data (last 24 hrs) 06/27/22 16:25: WBC 10.30, Hgb 12.4 L, Hct 38.3 L, Plt Count 152 06/27/22 16:25: Sodium 138, Potassium 4.3, BUN 14, Creatinine 0.63 L, Glucose 138 H Assessment and Plan - Problems (Diagnosis) (1) Acute on chronic diastolic (congestive) heart failure Current Visit: Yes Status: Acute (2) Anemia Current Visit: Yes Status: Chronic Qualifiers: Anemia type: unspecified type Qualified Code(s): D64.9 - Anemia, unspecified (3) GERD (gastroesophageal reflux disease) Current Visit: Yes Status: Chronic Qualifiers: Esophagitis presence: without esophagitis Qualified Code(s): K21.9 - Ga stro-esophageal reflux disease without esophagitis (4) Atrial fibrillation Current Visit: Yes Status: Chronic Qualifiers: Atrial fibrillation type: paroxysmal Qualified Code(s): I48.0 - Paroxysmal atrial fibrillation (5) Diabetes Current Visit: Yes Status: Chronic Qualifiers: Diabetes mellitus type: type 2 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 Continue diuresis with IV lasix- 40 mg BID. Breathing has improved. Currently on his home oxygen requirement. Still reports some shortness of breath. Consult cardiology, obtain echocardiogram. last done in 2020 showed. Ultrasound of left lower extremity pending revealed DVT. Chest CTA pending. Start lovenox q12. ACHS accu checks with sliding scale and diabetic diet. Confirm and resume long acting insulin. Check A1c and lipid panel. Monitor and replete electrolytes per protocol. Reconcile and continue home medications. Full code. Discharge Plan: Home Plan to discharge in: 24 Hours - Advance Directives Does patient have a Living Will: Yes Does patient have a Durable POA for Healthcare: No - Code Status/Comfort Care Code Status Assessed: Yes Code Status: Full Code Physician Review: Patient Assessed, Agree with Above Assessment and Plan Critical Care: No Time Spent Managing Pts Care (In Minutes): 50
--- NOTE | 2022-06-27 20:33 | RAD REPORT ---
EXAM DESCRIPTION: USExtremity Venous Uni Ltd06/27/2022 8:21 pm CLINICAL HISTORY: left leg swelling COMPARISON: 2021 FINDINGS: Echogenic material having the appearance of acute thrombus is present within the left popl iteal vein. Vein is partially compressible. Left common femoral, superficial femoral, greater saphenous, and posterior tibial veins are compress ible and demonstrate augmentation. Doppler demonstrates good flow. Grayscale, color and spectral analysis performed on all vessels IMPRESSION: Nonocclusive acute thrombus left popliteal vein
[2022-06-27] MEDS ORDERED: ONDANSETRON 4 MG/2 ML VIAL IV PRN (20:50)
[2022-06-27] MEDS ORDERED: ALBUTEROL 2.5 MG/3 ML NEB SOL NEB PRN (20:50)
[2022-06-27] MEDS ORDERED: ACETAMINOPHEN 500 MG TAB PO PRN (20:50)
[2022-06-27 20:51] VITALS: BMI 32.9
[2022-06-27] MEDS: ENOXAPARIN 100 MG/ML SYR SQ SCH (21:37)
[2022-06-27] MEDS: INSULIN -REGULAR HUMAN 50 UNIT/0.5 ML ML SQ SCH (21:37)
[2022-06-28 03:53] LABS: Absolute Lymphocytes (CBC) 0.4 K/uL (0.7-4.9); Hematocrit 37.8 % (39.6-49.0); Lymphocytes % 4.4 % (15.3-44.8); MCV 87.8 fL (80-100); MPV 9.5 fL (7.6-11.3); RBC Red Blood Cell Count 4.31 M/uL (4.33-5.43)
[2022-06-28 04:23] LABS: Magnesium 1.5 mg/dL (1.6-2.4); Potassium 3.6 mEq/L (3.5-5.1)
[2022-06-28] MEDS ORDERED: Magnesium Sulfate 2gm IVPB 2 G/50 ML BAG IV ONE (06:30)
[2022-06-28] MEDS: INSULIN -REGULAR HUMAN 50 UNIT/0.5 ML ML SQ SCH ×4 (07:30→21:00)
--- NOTE | 2022-06-28 07:50 | EKG ---
Test Date: 2022-06-27 Test Time: 15:50:54 Project Development Director: David RDZ MEASUREMENT RESULTS: Intervals: Rate: 82 LA: QRSD: 144 QT: 412 QTc: 481 [place]: P: LA: QRS: -32 T: 137 INTERPRETIVE STATEMENTS: Atrial fibrillation Left axis deviation Right bundle branch block T wave abnormality, consider lateral ischemia or digitalis effect Abnormal ECG Compared to ECG 01/08/2022 14:57:31 Left-axis deviation now present T-wave abnormality now present Possible ischemia now present Left anterior fascicular block no longer present Bifascicular block no longer present Myocardial infarct finding no longer present Electronically Signed On 06-28-22 07:49:40 CDT by Dov Michel
[2022-06-28] MEDS ORDERED: PNEUMOCOCCAL VACCINE 0.5 ML IMVAC ONE (08:00)
[2022-06-28] MEDS: ENOXAPARIN 100 MG/ML SYR SQ SCH ×2 (08:24→21:07)
[2022-06-28] MEDS ORDERED: POTASSIUM 25 MEQ EFFERV TAB PO ONE (09:00)
--- NOTE | 2022-06-28 10:04 | CON ---
Date of Consultation: 06/28/2022 Reason For Consultation: CHF exacerbation. History Of Present Illness: Mr. Lewis is 77. He has a history of TAVR around 1999. He has an echoc ardiogram in 2020 showing normally functioning TAVR. He also has a history of diastolic congestive h eart failure, diabetes, dyslipidemia, COPD, and asthma as well as paroxysmal atrial fibrillation. He comes in with congestive heart failure, was also found to have a left popliteal vein clot. He is on blood thinner for that. Comes in with PND, orthopnea, some pedal edema. No chest pain. Denies [place], vomiting, diaphoresis. Denied fever or chills. Denied palpitation or syncope. Past Medical History: As stated above. Allergies: HE IS ALLERGIC TO COUMADIN, ASPIRIN, NONSTEROIDALS, AND PENICILLIN. Review of Systems: Negative. Social History: Negative. Family History: Noncontributory. Medications: At home include Crestor, Aldactone, prednisone, labetalol, insulin, Singulair, Lasix, a nd digoxin. Physical Examination: Vital Signs: Stable. He was afebrile. HEENT: Negative. Neck: Supple with no bruit. Chest: Revealed some rales both bases. Cardiac: Revealed he had a regular rhythm and rate. No murmurs, gallops, or rubs. Abdomen: Benign. Extremities: Revealed chronic edema 2+ to the knees. Diagnostic Data: His BNP is 3200. Heart catheterization in September last year showed 100% RCA with co llaterals, normal LAD and circumflex. Troponin is negative. Impression And Plan: Acute deep venous thrombosis in the left popliteal vein that needs to be treate d, needs to be anticoagulated eventually with the Eliquis or Xarelto. I will leave that up to Dr. Kianna adrian. We should continue his present regimen including Lasix. He is now on insulin, Lovenox, and inha lers. Echocardiogram is pending. By examination, it sounds like his TAVR is functioning appropriate ly. His other issues including dyslipidemia, paroxysmal atrial fibrillation, hypertension, diabetes, and chronic obstructive pulmonary disease seem to be stable. Again, anticoagulate, check echo, cont inue present regimen, continue Lasix. We will continue to follow. RADHA/TALIA Voice ID: [id number] Report ID: [id number]
--- NOTE | 2022-06-28 12:02 | RAD REPORT ---
EXAM DESCRIPTION: CT - Chest For Pe Angio - 06/28/2022 12:35 am CLINICAL HISTORY: 77 years Male SOB COMPARISON: Radiograph of the chest dated January 22, 2020 TECHNIQUE: Images were obtained and axial, sagittal, and coronal planes. Intravenous contrast was ad ministered. 3-D MIP imaging was performed. This exam was performed according to our departmental dose-optimization program which includes use of Automated Exposure Control, adjustment of the mA and/or kV according to patient size and/or use of i terative reconstruction technique. FINDINGS: No filling defects pulmonary arteries bilaterally. No aortic dissection or dilatation. Elo n pulmonary artery is enlarged measuring 5.8 cm in transverse dimension. Right main pulmonary artery measures 3.4 cm in transverse dimension. Left main pulmonary artery measures 3.5 cm in transverse dim ension. Right heart strain. Small pericardial effusion. Enlarged 3.7 cm lymph node aorticopulmonary window. Moderate to large maribeth ateral pleural effusions. Enlarged heart. Increased pulmonary vascularity. Airspace attenuation posterior lingula and left upper lobe as well as lower lobes bilaterally consist ent with infiltrate and atelectatic change versus pulmonary congestion. No pneumothorax. Atrophic changes kidneys bilaterally with renal parenchymal thinning noted. 3.4 cm cyst lateral left kidney. No acute osseous abnormality. Dorsal kyphosis. Calcification anterior longitudinal ligament. IMPRESSION: No evidence for pulmonary embolus. No aortic dissection or dilatation. Enlarged pulmonar y arteries with findings indicating right heart strain. Enlarged heart with marked congestive heart f ailure. Bilateral infiltrate and atelectatic change versus pulmonary congestion. Electronically signed by: Jaqui Parra MD 06/28/2022 12:26 AM CDT Due to temporary technical issues with the PACS/Fluency reporting system, reports are being signed by the in house radiologists without review as a courtesy to insure prompt reporting. The interpreting radiologist is fully responsible for the content of the report.
--- NOTE | 2022-06-28 12:19 | ECHO ---
HEIGHT: 5 ft 8 in WEIGHT: 216 lb 9.6 oz DATE OF STUDY: 06/28/[address]: Lashae Echavarria 2-DIMENSIONAL: YES M.MODE: YES DOPPLER: YES COLOR FLOW: YES TDS: NO PORTABLE: YES DEFINITY: NO BUBBLE STUDY: NO DIAGNOSIS: CHF EXACERBATION CARDIAC HISTORY: CATHERIZATION: YES SURGERY: YES PROSTHETIC VALVE: YES PACEMAKER: NO MEASUREMENTS (cm) DIASTOLIC (NORMALS) SYSTOLIC (NORMALS) IVSd 1.3 (0.6-1.2) LA Diam 5.6 (1.9-4.0) LVEF 65% LVIDd 5.6 (3.5-5.7) LVIDs 3.6 (2.0-3.5) %FS 36% LVPWd 1.3 (0.6-1.2) Ao Diam 3.4 (2.0-3.7) 2 DIMENSIONAL ASSESSMENT: RIGHT ATRIUM: DILATED LEFT ATRIUM: DILATED RIGHT VENTRICLE: NORMAL LEFT VENTRICLE: NORMAL TRICUSPID VALVE: NORMAL MITRAL VALVE: MAC PULMONIC VALVE: NORMAL AORTIC VALVE: SCLEROSIS PERICARDIAL EFFUSION: NONE AORTIC ROOT: LEFT VENTRICULAR WALL MOTION: DECREASED LEFT VENTRICULAR COMPLIANCE. NORMAL LEFT VENTRICULAR EJECTION FRACTION. DOPPLER/COLOR FLOW: 1. DECREASED LEFT VENTRICULAR COMPLIANCE. 2. SEVERE PULMONARY HYPERTENSION. COMMENTS: 1. NORMAL LEFT VENTRICULAR SIZE. EJECTION FRACTION 65%. 2. MILTRAL ANNULAR CALCIFICATION. 3. AORTIC SCLEROSIS. 4. SEVERE PULMONARY HYPERTENSION. RIGHT VENTRICULAR SYSTOLIC PRESSURE 65 mmHg. 5. DIASTOLIC DYSFUNCTION. TECHNOLOGIST: Kenneth HOGAN
[2022-06-28] MEDS ORDERED: ALBUTEROL 2.5 MG/3 ML NEB SOL NEB PRN (14:00)
[2022-06-28] MEDS ORDERED: CARBOXYMETHYLCELLULOS OPTH PRN (16:36)
[2022-06-28] MEDS ORDERED: GLYCERIN OPTH PRN (16:36)
[2022-06-28] MEDS ORDERED: [UNRECOGNIZED DRUG - OTHER] OPTH PRN (16:36)
[2022-06-28] MEDS ORDERED: D10W 250 ML BAG IV PRN (16:50)
[2022-06-28] MEDS: INSULIN 70/30 100 UNITS/ML SQ SCH (17:00)
[2022-06-28] MEDS ORDERED: ALBUMIN HUMAN 25% 12.5 GM, FUROSEMIDE 100 MG in NA CHLORIDE 0.9% 40 ML IV SCH (17:00)
[2022-06-28] MEDS: METHYLPREDNISOLONE 125 MG INJ IV SCH (17:38)
[2022-06-28] MEDS: ARFORMOTEROL TARTRATE 15 MCG/2 ML VIAL.NEB NEB SCH (20:35)
[2022-06-28] MEDS: HOME MED 1 EA UNK (Brimonidine Tartrate [Lumify] 2.5 ML Drops) OPTH SCH (21:00)
[2022-06-28] MEDS ORDERED: TAFLUPROST OPTH SCH (21:00)
[2022-06-28] MEDS ORDERED: HOME MED 1 EA UNK (Tacrolimus [Prograf] 1 MG Capsule) PO SCH (21:00)
[2022-06-28] MEDS ORDERED: LABETALOL HCL 200 MG PO SCH (21:00)
[2022-06-28] MEDS: CYCLOSPORINE OPTH SCH (21:00)
[2022-06-28] MEDS: CHOLESTYRAMINE/ASP 4 GM/PKT PO SCH (21:06)
[2022-06-28] MEDS: LABETALOL HCL 100 MG TAB PO SCH (21:06)
[2022-06-28] MEDS: PRIMIDONE 50 MG TAB PO SCH (21:07)
[2022-06-28] MEDS: JUVEN PACKET PO SCH (21:09)
[2022-06-28] MEDS: TACROLIMUS 1 MG PO SCH (21:14)
[2022-06-28] MEDS: MYCOPHENOLATE 500 MG PO SCH (21:14)
[2022-06-28] MEDS: TAFLUPROST OPTH SCH (21:20)
[2022-06-28] MEDS: allopurinoL 100 MG TAB PO SCH (22:31)
[2022-06-29] MEDS: METHYLPREDNISOLONE 125 MG INJ IV SCH ×2 (00:13→05:25)
[2022-06-29 06:50] LABS: Absolute Lymphocytes (CBC) 0.2 K/uL (0.7-4.9); Hematocrit 39.8 % (39.6-49.0); Lymphocytes % 3.6 % (15.3-44.8); MPV 9.5 fL (7.6-11.3); RBC Red Blood Cell Count 4.52 M/uL (4.33-5.43)
[2022-06-29] MEDS: INSULIN -REGULAR HUMAN 50 UNIT/0.5 ML ML SQ SCH ×4 (07:30→20:13)
[2022-06-29 07:31] LABS: Albumin 2.9 g/dL (3.4-5.0); Bilirubin Total 0.9 mg/dL (0.2-1.0); Magnesium 1.8 mg/dL (1.6-2.4); Potassium 4.1 mEq/L (3.5-5.1); Protein, Total 6.6 g/dL (6.4-8.2); Thyroid Stimulating Hormone 0.463 uIU/mL (0.358-3.740)
--- NOTE | 2022-06-29 07:40 | RAD REPORT ---
EXAM DESCRIPTION: RADChest Single View06/29/2022 5:09 am CLINICAL HISTORY: pneumonia COMPARISON: Chest Single View dated 06/27/2022; Chest Single View dated 01/12/2022; Chest Single View dated 01/10/2022; Chest Single View dated 01/08/2022 TECHNIQUE: Portable AP view of the chest. FINDINGS: Stable cardiomegaly and bilateral patchy basal predominant airspace opacities with depende ntly layering pleural effusions. No pneumothorax. No significant interval change. Mediastinal contour s are otherwise unremarkable. IMPRESSION: Stable findings, which may relate to central congestive changes/CHF and/or superimposed pneumonia.
[2022-06-29 07:55] LABS: Platelet Estimate ADEQ; White Blood Cell Scan OK (OK)
[2022-06-29 07:56] LABS: Anisocytosis 1+; Blood Morphology Comment NOTED (NOT SEEN); Polychromasia SLIGHT
[2022-06-29] MEDS: HOME MED 1 EA UNK (Brimonidine Tartrate [Lumify] 2.5 ML Drops) OPTH SCH ×2 (08:34→21:00)
[2022-06-29] MEDS: CYCLOSPORINE OPTH SCH ×2 (08:34→21:00)
[2022-06-29] MEDS: PREDNISONE 5 MG PO SCH (08:34)
[2022-06-29] MEDS ORDERED: HOME MED 1 EA UNK (Spironolactone [Spironolactone] 50 MG Tablet) PO SCH (09:00)
[2022-06-29] MEDS: TAFLUPROST OPTH SCH ×2 (09:00→20:11)
[2022-06-29] MEDS: JUVEN PACKET PO SCH ×2 (09:00→20:13)
[2022-06-29] MEDS: ARFORMOTEROL TARTRATE 15 MCG/2 ML VIAL.NEB NEB SCH ×2 (09:14→20:25)
[2022-06-29] MEDS: MONTELUKAST 10 MG TAB PO SCH (09:17)
[2022-06-29] MEDS: allopurinoL 100 MG TAB PO SCH ×2 (09:17→20:12)
[2022-06-29] MEDS: SPIRONOLACTONE 25 MG TABLET PO SCH (09:17)
[2022-06-29] MEDS: POTASSIUM CL SA 10 MEQ TAB PO SCH (09:18)
[2022-06-29] MEDS: DULOXETINE 30 MG CAP PO SCH (09:18)
[2022-06-29] MEDS: ASPIRIN EC 81 MG TAB PO SCH (09:18)
[2022-06-29] MEDS: LABETALOL HCL 100 MG TAB PO SCH ×2 (09:18→20:12)
[2022-06-29] MEDS: ROSUVASTATIN 10 MG TAB PO SCH (09:18)
[2022-06-29] MEDS: MYCOPHENOLATE 500 MG PO SCH ×2 (09:18→20:11)
[2022-06-29] MEDS: TACROLIMUS 1 MG PO SCH ×2 (09:18→20:10)
[2022-06-29] MEDS: ENOXAPARIN 100 MG/ML SYR SQ SCH (09:18)
[2022-06-29] MEDS: DIGOXIN 0.125 MG TABLET PO SCH (09:18)
[2022-06-29] MEDS: PRIMIDONE 50 MG TAB PO SCH ×3 (09:18→20:12)
--- NOTE | 2022-06-29 10:32 | P.PN ---
Subjective Date of Service: 06/28/22 Subjective: Patient is clinically doing well. Patient denies any new complaints. Daughter was in the room and she states her father is more short of breath. We given patient on albumin and Lasix drip. We will check a chest x-ray in the morning. We will get physical therapy. Review of Systems 10-point ROS is otherwise unremarkable Physical Examination - Vital Signs Temperature: 97.0 F Blood Pressure: 167/99 Pulse: 93 Respirations: 18 Pulse Ox (%): 91 - Physical Exam General: Alert, In no apparent distress, Oriented x3 HEENT: Atraumatic, PERRLA, EOMI Neck: Supple, JVD not distended Respiratory: Diminished, Expiratory wheezes Cardiovascular: Regular rate/rhythm, Normal S1 S2, Systolic murmur Gastrointestinal: Normal bowel sounds, Soft and benign, Non-distended, No tenderness Musculoskeletal: No clubbing, No swelling, No tenderness Integumentary: No rashes Neurological: Cranial nerves 3-12 intact Lymphatics: No axilla or inguinal lymphadenopathy - Studies Medications List Reviewed: Yes Assessment & Plan - Problems (Diagnosis) (1) Popliteal DVT (deep venous thrombosis) Current Visit: Yes Status: Acute (2) Acute on chronic diastolic (congestive) heart failure Current Visit: Yes Status: Acute (3) COPD exacerbation Current Visit: Yes Status: Acute (4) Anemia Current Visit: Yes Status: Chronic Qualifiers: Anemia type: unspecified type Qualified Code(s): D64.9 - Anemia, unspecified (5) Atrial fibrillation Current Visit: Yes Status: Chronic Qualifiers: Atrial fibrillation type: paroxysmal Qualified Code(s): I48.0 - Paroxysmal atrial fibrillation (6) Diabetes Current Visit: Yes Status: Chronic Qualifiers: Diabetes mellitus type: type 2 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 lead 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 use Diabetes mellitus complication status: with hyperglycemia Qualified Code(s): E11.65 - Type 2 diabetes mellitus with hyperglycemia; 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 Echocardiogram pending 2. Resume cardiac medications 4. Cardiology and pulmonary consultation 5. Aggressive diuresis 6. Strict I's and O's 7. Repeat CXR 8. Daily weights 9. PT eval 10. Rejection meds 11. Education regarding diet and treatment of congestive heart failure Discharge Plan: Home Plan to discharge in: Greater than 2 days - Advance Directives Does patient have a Living Will: No Does patient have a Durable POA for Healthcare: No - Code Status/Comfort Care Code Status: Full Code Physician Review: Patient Assessed, Agree with Above Assessment and Plan Critical Care: No Time Spent Managing PTS Care (In Minutes): 45
--- NOTE | 2022-06-29 11:19 | P.CNS ---
Date of Consult: 06/29/22 Reason for Consult: Pulmonary hypertension Primary Care Provider: Tanesha Chief Complaint: CHF Exacerbation History of Present Illness: Patient is 77 years of age multiple medical problems including diabetes A-fib has had a watchman placed s/p TAVR knee transplant chronic diastolic failure COPD is on home oxygen admitted to the hospital complaining of lower extremity edema increasing weakness and worse over the past week and a half started gaining weight cut back on steroids from 15-10 progressive weakness and ended up here in the hospital patient does take trilogy at home Has a history of pulmonary hypertension patient is feeling better since admission still very weak [place] any cough or phlegm no chest pain Allergies NSAIDS (Non-Steroidal Anti-Inflamma Allergy (Verified 02/02/21 09:06) stomach pains Penicillins Allergy (Verified 02/02/21 09:06) Itching/Hives/Rash aspirin Adverse Reaction (Verified 02/02/21 09:06) Rash warfarin Adverse Reaction (Verified 06/27/22 20:52) Rash Home Medications: Allopurinol 100 mg PO BID 06/28/22 Aspirin [Low Dose Aspirin EC] 81 mg PO DAILY 06/28/22 Brimonidine Tartrate [Lumify] 1 gtt EACH EYE BID 06/28/22 Carboxymethylcellulos/Glycerin [Refresh Optive Eye Drops] 1 gtt EACH EYE Q2HP PRN 06/28/22 Cholestyramine/Aspartame [Cholestyramine Light Packet] 2 packet PO BEDTIME 06/28/22 Cyclosporine [Restasis Multidose] 1 gtt EACH EYE BID 06/28/22 Digoxin [Lanoxin*] 0.125 mg PO DAILY 06/28/22 Duloxetine HCl [Cymbalta] 30 mg PO DAILY 06/28/22 Furosemide [Lasix*] 40 mg PO BID 06/28/22 Insulin Aspart Prot/Insuln Asp [Novolog Mix 70-30 Flexpen] 18 units SQ DAILY WITH BREAKFAST 06/28/22 Insulin NPH Hum/Reg Insulin Hm [Novolin 70-30 100 Unit/ml Vial] 17 unit SQ DAILY AT SUPPER 06/28/22 Labetalol HCl [Trandate] 200 mg PO BID 06/28/22 Montelukast Sodium [Singulair] 10 mg PO DAILY 06/28/22 Potassium Chloride 10 meq PO DAILY 06/28/22 Primidone [Mysoline *] 50 mg PO TID 06/28/22 Rosuvastatin [Crestor*] 10 mg PO DAILY 06/28/22 Spironolactone 50 mg PO DAILY 06/28/22 Tacrolimus [Prograf] 3 mg PO BID 06/28/22 Tafluprost/Pf [Zioptan 0.0015% Eye Drop] 1 gtt EACH EYE BID 06/28/22 mycophenolate mofetiL [Mycophenolate Mofetil] 1,000 mg PO BID 06/28/22 predniSONE [Prednisone*] 5 mg PO DAILY 06/28/22 - Past Medical/Surgical History Diabetic: Yes -: Diabetes mellitus type 2 -: COPD -: CHF -: Atrial fibrillation with history of watchman procedure -: History aortic stenosis status post TAVR -: GERD -: HTN -: Gout -: Hyperlipidemia -: CAD status post stent LAD 2020 -: History of kidney transplant on antirejection medication -: R KNEE REPLACEMENT -: KIDNEY TRANSPLANT -: 40% STOMACH REMOVAL -: CARPAL TUNNEL REPAIR -: Rt Hip Replacement -: Skin graft to nose -: Cholecystectomy -: Appendectomy Psychosocial/ Personal History: Patient lives at home - Family History Father Medical History: Heart disease, Hypertension, Diabetes Mother Medical History: Hypertension, Stroke - Social History Smoking Status: Unknown if ever smoked Alcohol use: Yes CD- Drugs: No Caffeine use: Yes Place of Residence: Home Review of Systems 10-point ROS is otherwise unremarkable General: Weakness Respiratory: Shortness of Breath Cardiovascular: Edema Physical Examination Temp Pulse Resp BP Pulse Ox 97.0 F 93 H 18 167/99 H 91 06/29/22 10:31 06/29/22 10:31 06/29/22 10:31 06/29/22 10:31 06/29/22 10:31 General: Alert, Oriented x3 HEENT: Atraumatic Respiratory: Clear to auscultation bilaterally, Diminished Cardiovascular: No edema, Regular rate/rhythm, Normal S1 S2 Gastrointestinal: Normal bowel sounds, Soft and benign Musculoskeletal: No clubbing, No contractures - Problems (1) Pulmonary hypertension Current Visit: Yes Status: Acute Plan: Patient is 77 years of age multiple medical problems including COPD he is also had a renal transplant has a history of pulmonary hypertension his pulmonary artery pressures are mildly elevated probably has underlying severe diastolic dysfunction CT scan shows bilateral infiltrates bilateral pleural effusions some of them may be loculated BNP was very elevated is currently on diuretics spironolactone has improved still subjectively although still very weak patient has a history of A-fib changed to Eliquis very low-dose of sildenafil for now 20 mg once a day to see if he can tolerate it better more Lasix 40 mg twice a day continue with spironolactone blood pressure is also elevated I do not see any Lasix albumin drip exchange teller to Decadron right now to avoid fluid retention
[2022-06-29] MEDS ORDERED: FUROSEMIDE 40 MG/4 ML VIAL IV SCH (12:00)
--- NOTE | 2022-06-29 12:37 | PN ---
Date of Progress Note: 06/29/2022 The patient was admitted to Dr. Jean Baptiste and was seen because of congestive heart failure. Echocardiogra m which was done yesterday showed diastolic dysfunction that is moderate. He had normal ejection fra ction, no effusion, severe pulmonary hypertension. Today, his vital signs are stable. O2 saturation 95%, on CPAP. Patient has a history of CAD, TAVR, which appeared to be functioning appropriately by echocardiography. Patient has paroxysmal atrial fibrillation, COPD, diabetes. He is presently on i nhalers, insulin, labetalol, digoxin, Lasix, and Crestor, and is improving slowly. We will continue to follow. No change in therapy for now. NB/MODL Voice ID: [id number] Report ID: [id number]
[2022-06-29] MEDS: SILDENAFIL CITRATE 20 MG TABLET PO SCH (12:43)
[2022-06-29] MEDS: INSULIN 70/30 100 UNITS/ML SQ SCH (17:00)
[2022-06-29] MEDS ORDERED: FUROSEMIDE 40 MG/4 ML VIAL IV ONE ×2 (18:35→19:49)
[2022-06-29] MEDS: APIXABAN 5 MG TABLET PO SCH (20:12)
[2022-06-29] MEDS: CHOLESTYRAMINE/ASP 4 GM/PKT PO SCH (20:14)
[2022-06-29] MEDS: dexAMETHasone 4 MG TAB PO SCH (21:22)
[2022-06-30] MEDS: INSULIN -REGULAR HUMAN 50 UNIT/0.5 ML ML SQ SCH ×4 (07:30→21:03)
[2022-06-30] MEDS: ARFORMOTEROL TARTRATE 15 MCG/2 ML VIAL.NEB NEB SCH ×2 (08:36→19:30)
[2022-06-30] MEDS: HOME MED 1 EA UNK (Brimonidine Tartrate [Lumify] 2.5 ML Drops) OPTH SCH ×2 (09:00→21:00)
[2022-06-30] MEDS: PREDNISONE 5 MG PO SCH (09:00)
[2022-06-30] MEDS: CYCLOSPORINE OPTH SCH ×2 (09:00→21:00)
[2022-06-30] MEDS: JUVEN PACKET PO SCH ×2 (09:00→21:06)
[2022-06-30] MEDS: TAFLUPROST OPTH SCH ×2 (09:00→21:12)
[2022-06-30] MEDS: PRIMIDONE 50 MG TAB PO SCH ×3 (09:27→21:02)
[2022-06-30] MEDS: APIXABAN 5 MG TABLET PO SCH ×2 (09:27→21:02)
[2022-06-30] MEDS: SILDENAFIL CITRATE 20 MG TABLET PO SCH ×3 (09:27→21:03)
[2022-06-30] MEDS: ROSUVASTATIN 10 MG TAB PO SCH (09:27)
[2022-06-30] MEDS: allopurinoL 100 MG TAB PO SCH ×2 (09:27→21:02)
[2022-06-30] MEDS: MONTELUKAST 10 MG TAB PO SCH (09:27)
[2022-06-30] MEDS: dexAMETHasone 4 MG TAB PO SCH ×2 (09:27→21:03)
[2022-06-30] MEDS: POTASSIUM CL SA 10 MEQ TAB PO SCH (09:27)
[2022-06-30] MEDS: LABETALOL HCL 100 MG TAB PO SCH ×2 (09:28→21:02)
[2022-06-30] MEDS: MYCOPHENOLATE 500 MG PO SCH ×2 (09:28→21:00)
[2022-06-30] MEDS: TACROLIMUS 1 MG PO SCH ×2 (09:28→20:59)
[2022-06-30] MEDS: DIGOXIN 0.125 MG TABLET PO SCH (09:28)
[2022-06-30] MEDS: FUROSEMIDE 40 MG/4 ML VIAL IV SCH ×2 (09:28→16:58)
[2022-06-30] MEDS: DULOXETINE 30 MG CAP PO SCH (09:28)
[2022-06-30] MEDS: SPIRONOLACTONE 25 MG TABLET PO SCH (09:28)
[2022-06-30] MEDS: ASPIRIN EC 81 MG TAB PO SCH (09:28)
--- NOTE | 2022-06-30 09:31 | P.PN ---
Subjective Date of Service: 06/30/22 Primary Care Provider: Tanesha Chief Complaint: CHF Exacerbation/pulmonary hypertension Subjective: Improving (Patient is improving beginning to eat feels very weak shortness of breath is better) Review of Systems General: Weakness Respiratory: Shortness of Breath Physical Examination - Vital Signs Temperature: 97.0 F Blood Pressure: 153/76 Pulse: 89 Respirations: 18 Pulse Ox (%): 95 - Physical Exam General: Alert, Oriented x3, Mild distress Respiratory: Clear to auscultation bilaterally Cardiovascular: No edema, Regular rate/rhythm, Normal S1 S2 - Studies Medications List Reviewed: Yes Assessment And Plan - Current Problems (Diagnosis) (1) Pulmonary hypertension Current Visit: Yes Status: Acute Plan: Patient admitted with pulmonary hypertension is doing better increase sildenafil to 20 mg twice a day patient is on Decadron IV Lasix labs reviewed added basic profile blood pressure control is improved continue with Decadron Physician Review: Patient Assessed, Agree with Above Assessment and Plan
[2022-06-30 11:23] LABS: Potassium 3.9 mEq/L (3.5-5.1)
[2022-06-30] MEDS ORDERED: POTASSIUM CL SA 10 MEQ TAB PO ONE (13:00)
[2022-06-30] MEDS: INSULIN 70/30 100 UNITS/ML SQ SCH (16:55)
[2022-06-30] MEDS: CHOLESTYRAMINE/ASP 4 GM/PKT PO SCH (21:05)
[2022-07-01 06:28] LABS: Potassium 4.4 mEq/L (3.5-5.1)
[2022-07-01] MEDS: INSULIN -REGULAR HUMAN 50 UNIT/0.5 ML ML SQ SCH ×4 (07:30→21:05)
[2022-07-01] MEDS: TAFLUPROST OPTH SCH ×2 (09:00→21:00)
[2022-07-01] MEDS: JUVEN PACKET PO SCH ×2 (09:00→21:00)
[2022-07-01] MEDS: HOME MED 1 EA UNK (Brimonidine Tartrate [Lumify] 2.5 ML Drops) OPTH SCH ×2 (09:00→21:00)
[2022-07-01] MEDS: PREDNISONE 5 MG PO SCH (09:00)
[2022-07-01] MEDS: CYCLOSPORINE OPTH SCH ×2 (09:00→21:00)
[2022-07-01] MEDS: APIXABAN 5 MG TABLET PO SCH ×2 (09:11→21:03)
[2022-07-01] MEDS: dexAMETHasone 4 MG TAB PO SCH ×2 (09:11→21:03)
[2022-07-01] MEDS: allopurinoL 100 MG TAB PO SCH ×2 (09:11→21:07)
[2022-07-01] MEDS: MONTELUKAST 10 MG TAB PO SCH (09:11)
[2022-07-01] MEDS: PRIMIDONE 50 MG TAB PO SCH ×3 (09:12→21:04)
[2022-07-01] MEDS: ASPIRIN EC 81 MG TAB PO SCH (09:12)
[2022-07-01] MEDS: SPIRONOLACTONE 25 MG TABLET PO SCH (09:12)
[2022-07-01] MEDS: FUROSEMIDE 40 MG/4 ML VIAL IV SCH ×2 (09:12→17:58)
[2022-07-01] MEDS: POTASSIUM CL SA 10 MEQ TAB PO SCH (09:12)
[2022-07-01] MEDS: LABETALOL HCL 100 MG TAB PO SCH ×2 (09:12→21:07)
[2022-07-01] MEDS: SILDENAFIL CITRATE 20 MG TABLET PO SCH ×2 (09:12→21:08)
[2022-07-01] MEDS: DULOXETINE 30 MG CAP PO SCH (09:12)
[2022-07-01] MEDS: TACROLIMUS 1 MG PO SCH ×2 (09:13→21:04)
[2022-07-01] MEDS: DIGOXIN 0.125 MG TABLET PO SCH (09:13)
[2022-07-01] MEDS: MYCOPHENOLATE 500 MG PO SCH ×2 (09:13→21:03)
[2022-07-01] MEDS: ROSUVASTATIN 10 MG TAB PO SCH (09:21)
[2022-07-01] MEDS: ARFORMOTEROL TARTRATE 15 MCG/2 ML VIAL.NEB NEB SCH ×2 (09:48→19:30)
--- NOTE | 2022-07-01 10:29 | P.PN ---
Subjective Date of Service: 07/01/22 Primary Care Provider: Tanesha Chief Complaint: CHF Exacerbation/pulmonary hypertension Subjective: Improving (Patient is improving and ambulating with assistance still feeling weak) Review of Systems General: Weakness Respiratory: Shortness of Breath Physical Examination - Vital Signs Temperature: 97.8 F Blood Pressure: 151/73 Pulse: 79 Respirations: 18 Pulse Ox (%): 100 - Physical Exam General: Alert, Oriented x3 Respiratory: Clear to auscultation bilaterally, Diminished Cardiovascular: No edema, Regular rate/rhythm - Studies Medications List Reviewed: Yes Assessment And Plan - Current Problems (Diagnosis) (1) Pulmonary hypertension Current Visit: Yes Status: Acute Plan: Patient's condition is improving he still weak trying to ambulate with assistance qualify for inpatient rehab patient has home O2 labs chemistries reviewed reduce dose of steroids patient tolerating sildenafil 20 twice daily will wait at least 2 weeks to adjust the dose to 20 3 times daily patient is on IV Lasix with improvement in his edema Physician Review: Patient Assessed, Agree with Above Assessment and Plan
[2022-07-01] MEDS ORDERED: ACETAMINOPHEN 500 MG TAB PO ONE (14:00)
[2022-07-01] MEDS: INSULIN 70/30 100 UNITS/ML SQ SCH (17:57)
[2022-07-01] MEDS: CHOLESTYRAMINE/ASP 4 GM/PKT PO SCH (21:06)
[2022-07-02 06:25] LABS: Magnesium 1.8 mg/dL (1.6-2.4); Phosphorus 3.4 mg/dL (2.5-4.9)
[2022-07-02] MEDS: INSULIN -REGULAR HUMAN 50 UNIT/0.5 ML ML SQ SCH ×4 (07:30→20:24)
[2022-07-02] MEDS: ARFORMOTEROL TARTRATE 15 MCG/2 ML VIAL.NEB NEB SCH ×2 (08:00→20:15)
[2022-07-02] MEDS: CYCLOSPORINE OPTH SCH ×2 (09:00→20:08)
[2022-07-02] MEDS: PREDNISONE 5 MG PO SCH (09:00)
[2022-07-02] MEDS: HOME MED 1 EA UNK (Brimonidine Tartrate [Lumify] 2.5 ML Drops) OPTH SCH ×2 (09:00→20:08)
[2022-07-02] MEDS: TAFLUPROST OPTH SCH ×2 (09:00→20:15)
[2022-07-02] MEDS: DIGOXIN 0.125 MG TABLET PO SCH (09:41)
[2022-07-02] MEDS: FUROSEMIDE 40 MG/4 ML VIAL IV SCH ×2 (09:41→16:12)
[2022-07-02] MEDS: allopurinoL 100 MG TAB PO SCH ×2 (09:41→20:05)
[2022-07-02] MEDS: DULOXETINE 30 MG CAP PO SCH (09:42)
[2022-07-02] MEDS: ROSUVASTATIN 10 MG TAB PO SCH (09:42)
[2022-07-02] MEDS: POTASSIUM CL SA 10 MEQ TAB PO SCH (09:42)
[2022-07-02] MEDS: PRIMIDONE 50 MG TAB PO SCH ×3 (09:42→20:27)
[2022-07-02] MEDS: MONTELUKAST 10 MG TAB PO SCH (09:43)
[2022-07-02] MEDS: ASPIRIN EC 81 MG TAB PO SCH (09:43)
[2022-07-02] MEDS: SILDENAFIL CITRATE 20 MG TABLET PO SCH ×2 (09:43→20:04)
[2022-07-02] MEDS: LABETALOL HCL 100 MG TAB PO SCH ×2 (09:43→20:04)
[2022-07-02] MEDS: SPIRONOLACTONE 25 MG TABLET PO SCH (09:43)
[2022-07-02] MEDS: APIXABAN 5 MG TABLET PO SCH ×2 (09:44→20:05)
[2022-07-02] MEDS: JUVEN PACKET PO SCH ×2 (09:44→20:35)
[2022-07-02] MEDS: TACROLIMUS 1 MG PO SCH ×2 (09:44→20:07)
[2022-07-02] MEDS: MYCOPHENOLATE 500 MG PO SCH ×2 (09:44→20:08)
[2022-07-02] MEDS: dexAMETHasone 4 MG TAB PO SCH (10:02)
[2022-07-02] MEDS: HUMALOG MIX 75/25 100 UNITS/ML SQ SCH ×2 (11:13→16:12)
[2022-07-02] MEDS ORDERED: ACETAMINOPHEN 325 MG TABLET PO PRN (13:54)
[2022-07-02] MEDS ORDERED: HUMALOG MIX 75/25 100 UNITS/ML SQ SCH (17:00)
--- NOTE | 2022-07-02 17:34 | P.PN ---
Subjective Date of Service: 07/02/22 Primary Care Provider: Tanesha Chief Complaint: CHF Exacerbation/pulmonary hypertension No acute events overnight. He reports that he feels well this morning. His primary concern is generalized weakness. He states that he is pending placement into acute rehab. He denies any chest pain, shortness of breath, or palpitations. Review of Systems 10-point ROS is otherwise unremarkable General: Weakness (generalized) Physical Examination - Vital Signs Temperature: 98.0 F Blood Pressure: 119/65 Pulse: 52 Respirations: 16 Pulse Ox (%): 100 - Physical Exam General: Alert, In no apparent distress, Oriented x3 HEENT: Atraumatic, Mucous membr. moist/pink, Sclerae nonicteric Neck: JVD not distended Respiratory: Clear to auscultation bilaterally Cardiovascular: Regular rate/rhythm, Normal S1 S2, No gallops, No rubs, No murmurs Gastrointestinal: Normal bowel sounds, Soft and benign, Non-distended, No tenderness, No rebound, No guarding Musculoskeletal: No clubbing Integumentary: No rashes Neurological: Normal speech, Normal affect - Studies Microbiology Data (last 24 hrs): 06/27/22 16:40 Blood - Blood Aerobic Blood Culture - Final No growth in 5 days. 06/27/22 16:40 Blood - Blood Anaerobic Blood Culture - Final No growth in 5 days. 06/27/22 16:25 Blood - Blood Aerobic Blood Culture - Final No growth in 5 days. 06/27/22 16:25 Blood - Blood Anaerobic Blood Culture - Final No growth in 5 days. Medications List Reviewed: Yes Assessment And Plan - Plan # Acute on Chronic Decompensated Diastolic Congestive Heart Failure with Preserved Ejection Fraction # Pulmonary Hypertension with Right Heart Strain - Consulted Cardiology and spoke with Dr. Michel - recommendations appreciated - Consulted Pulmonology and spoke with Dr. Kitchen - recommendations appreciated - Chest x-ray (06/27) = "these findings probably indicate CHF." - CT chest angiogram = "no evidence for pulmonary embolus. No aortic dissection or dilatation. Enlarged pulmonary arteries with findings indicating right heart strain. Enlarged heart with marked congestive heart failure. Bilateral infiltrate and atelectatic change versus pulmonary congestion." - Transthoracic echocardiogram = "1. normal left ventricular size. ejection fraction 65%. 2. miltral annular calcification. 3. aortic sclerosis. 4. severe pulmonary hypertension. right ventricular systolic pressure 65 mmHg. 5. diastolic dysfunction." - Diuresis with IV furosemide for today - Continue labetalol, spironolactone, sildenafil - Daily weights - Strict I/O - Cardiac diet, 1.5 L fluid restriction, 2 g Na restriction # Chronic Atrial Fibrillation s/p Watchman Device # Severe Aortic Stenosis s/p Transcatheter Aortic Valve Replacement # Acute Nonocclusive Left Popliteal Deep Venous Thrombosis - Left lower extremity Doppler = "nonocclusive acute thrombus left popliteal vein" - Continue home digoxin, labetalol - Continue apixaban # Deconditioning - PT consulted - recommendations appreciated - Pending IPR placement, appreciate CM assistance # History of Renal Transplant - Continue home tacrolimus, mycophenelate, prednisone # Coronary Artery Disease s/p PCI to LAD (2020) # Hypertension # Hyperlipidemia - Continue aspirin, rosuvastatin, labetalol - Clopidogrel discontinued due to initiation of apixaban # Obstructive Sleep Apnea - May use home CPAP # Gastroesophageal Reflux Disease - Continue home pantoprazole # Gout - Continue home allopurinol Felix Veloz M.D.
[2022-07-02] MEDS: CHOLESTYRAMINE/ASP 4 GM/PKT PO SCH (20:06)
--- NOTE | 2022-07-02 21:57 | P.CNS ---
Date of Consult: 07/02/22 Reason for Consult: CHF/ Electrolyte Abn Requesting Physician: Felix Veloz Primary Care Provider: Dr. Almendarez Chief Complaint: CHF Exacerbation/pulmonary hypertension History of Present Illness: Mr. Lewis is a 77 year old male with past medical history of insulin dependent type 2 diabetes, atrial fibrillation s/p watchman, aortic stenosis s/p TAVR, kidney transplant, hypertension, chronic diastolic CHF, and COPD chronically on 3L NC who presented to the emergency department via EMS with complaints of worsening shortness of breath x 1 week. He reports compliance with his lasix but has recently finished a month of prednisone for COPD exacerbation. Per EMS, he was saturating 84% on 3L upon arrival and placed on nonrebreather. Today his labs are significant for BNP 3224. Chest xray showed mild CHF. Left leg more erythematous and warm, ultrasound showed "Nonocclusive acute thrombus left popliteal vein." Chest CTA pending. He was given 40 mg IV lasix & started on lovenox in the emergency department. Breathing has improved. ED provider wishes to admit patient for further management. [facility] 15:40 This 77 yrs old Male presents to ER via Unassigned with complaints of shortness of sk4 breath. 15:40 here for soa x 1-2 weeks. uses 3 liters o2 at home. ems notes sat 88% on three litesr, sk4 put on nrb. pt has had progressive le swelling x 3-4 weeks. is on prednisone 5mg daily after kidney transplant, recently completed 10mg additional daily dose x 2 months. no recent abx. last hospitalized dec 2021 with bilateral pneumonia. + cough with sputum. no chest pain. Allergies NSAIDS (Non-Steroidal Anti-Inflamma Allergy (Verified 02/02/21 09:06) stomach pains Penicillins Allergy (Verified 02/02/21 09:06) Itching/Hives/Rash aspirin Adverse Reaction (Verified 02/02/21 09:06) Rash warfarin Adverse Reaction (Verified 06/27/22 20:52) Rash Home medications list reviewed: Yes Home Medications: Allopurinol 100 mg PO BID 06/28/22 Aspirin [Low Dose Aspirin EC] 81 mg PO DAILY 06/28/22 Brimonidine Tartrate [Lumify] 1 gtt EACH EYE BID 06/28/22 Carboxymethylcellulos/Glycerin [Refresh Optive Eye Drops] 1 gtt EACH EYE Q2HP PRN 06/28/22 Cholestyramine/Aspartame [Cholestyramine Light Packet] 2 packet PO BEDTIME 06/28/22 Cyclosporine [Restasis Multidose] 1 gtt EACH EYE BID 06/28/22 Digoxin [Lanoxin*] 0.125 mg PO DAILY 06/28/22 Duloxetine HCl [Cymbalta] 30 mg PO DAILY 06/28/22 Furosemide [Lasix*] 40 mg PO BID 06/28/22 Insulin Aspart Prot/Insuln Asp [Novolog Mix 70-30 Flexpen] 20 units SQ BID 06/28/22 Labetalol HCl [Trandate] 200 mg PO BID 06/28/22 Montelukast Sodium [Singulair] 10 mg PO DAILY 06/28/22 Potassium Chloride 10 meq PO DAILY 06/28/22 Primidone [Mysoline *] 50 mg PO TID 06/28/22 Rosuvastatin [Crestor*] 10 mg PO DAILY 06/28/22 Spironolactone 50 mg PO DAILY 06/28/22 Tacrolimus [Prograf] 3 mg PO BID 06/28/22 Tafluprost/Pf [Zioptan 0.0015% Eye Drop] 1 gtt EACH EYE BID 06/28/22 mycophenolate mofetiL [Mycophenolate Mofetil] 1,000 mg PO BID 06/28/22 predniSONE [Prednisone*] 5 mg PO DAILY 06/28/22 - Past Medical/Surgical History Diabetic: Yes -: Diabetes mellitus type 2 -: COPD -: Diastolic CHF -: Atrial fibrillation with history of watchman procedure -: History aortic stenosis status post TAVR -: GERD -: HTN -: Gout -: HLD -: CAD status post stent LAD 2020 -: History of kidney transplant on antirejection medication -: R KNEE REPLACEMENT -: KIDNEY TRANSPLANT -: 40% STOMACH REMOVAL -: CARPAL TUNNEL REPAIR -: Rt Hip Replacement -: Skin graft to nose -: Cholecystectomy -: Appendectomy Psychosocial/ Personal History: Patient lives at home - Family History Father Medical History: Heart disease, Hypertension, Diabetes Mother Medical History: Hypertension, Stroke - Social History Smoking Status: Unknown if ever smoked Alcohol use: Yes CD- Drugs: No Caffeine use: Yes Place of Residence: Home Review of Systems 10-point ROS is otherwise unremarkable General: Weakness Respiratory: SOB with Excertion Cardiovascular: Edema Physical Examination Temp Pulse Resp BP Pulse Ox 97.0 F 85 18 136/69 96 07/02/22 20:00 07/02/22 20:04 07/02/22 20:00 07/02/22 20:04 07/02/22 20:00 General: Oriented x3, Cooperative HEENT: Atraumatic Neck: Supple Respiratory: Diminished Cardiovascular: No edema, Regular rate/rhythm Gastrointestinal: Soft and benign, Non-distended Musculoskeletal: No clubbing, No contractures Integumentary: No rashes, No cyanosis Neurological: Normal speech Blood work reviewed in the chart. Imagings Data: [email or web address] EXAM DESCRIPTION: RADChest Single View06/29/2022 5:09 am CLINICAL HISTORY: pneumonia COMPARISON: Chest Single View dated 06/27/2022; Chest Single View dated 01/12/2022; Chest Single View dated 01/10/2022; Chest Single View dated 01/08/2022 TECHNIQUE: Portable AP view of the chest. FINDINGS: Stable cardiomegaly and bilateral patchy basal predominant airspace opacities with dependently layering pleural effusions. No pneumothorax. No significant interval change. Mediastinal contours are otherwise unremarkable. IMPRESSION: Stable findings, which may relate to central congestive changes/CHF and/or superimposed pneumonia. [email or web address] EXAM DESCRIPTION: CT - Chest For Pe Angio - 06/28/2022 12:35 am CLINICAL HISTORY: 77 years Male SOB COMPARISON: Radiograph of the chest dated January 22, 2020 TECHNIQUE: Images were obtained and axial, sagittal, and coronal planes. Intravenous contrast was administered. 3-D MIP imaging was performed. This exam was performed according to our departmental dose-optimization program which includes use of Automated Exposure Control, adjustment of the mA and/or kV according to patient size and/or use of iterative reconstruction technique. FINDINGS: No filling defects pulmonary arteries bilaterally. No aortic dissection or dilatation. Main pulmonary artery is enlarged measuring 5.8 cm in transverse dimension. Right main pulmonary artery measures 3.4 cm in transverse dimension. Left main pulmonary artery measures 3.5 cm in transverse dimension. Right heart strain. Small pericardial effusion. Enlarged 3.7 cm lymph node aorticopulmonary window. Moderate to large bilateral pleural effusions. Enlarged heart. Increased pulmonary vascularity. Airspace attenuation posterior lingula and left upper lobe as well as lower lobes bilaterally consistent with infiltrate and atelectatic change versus pulmonary congestion. No pneumothorax. Atrophic changes kidneys bilaterally with renal parenchymal thinning noted. 3.4 cm cyst lateral left kidney. No acute osseous abnormality. Dorsal kyphosis. Calcification anterior longitudinal ligament. IMPRESSION: No evidence for pulmonary embolus. No aortic dissection or dilatation. Enlarged pulmonary arteries with findings indicating right heart strain. Enlarged heart with marked congestive heart failure. Bilateral infiltrate and atelectatic change versus pulmonary congestion. [facility]: USExtremity Venous [facility]06/27/2022 8:21 pm CLINICAL HISTORY: left leg swelling COMPARISON: 2021 FINDINGS: Echogenic material having the appearance of acute thrombus is present within the left popliteal vein. Vein is partially compressible. Left common femoral, superficial femoral, greater saphenous, and posterior tibial veins are compressible and demonstrate augmentation. Doppler demonstrates good flow. Grayscale, color and spectral analysis performed on all vessels IMPRESSION: Nonocclusive acute thrombus left popliteal vein [facility]: RADChest Single View06/27/2022 4:39 pm CLINICAL HISTORY: sob COMPARISON: 2021 FINDINGS: Moderate bilateral pulmonary opacities. Heart is markedly enlarged IMPRESSION: These findings probably indicate CHF [email or web address] LEFT VENTRICULAR WALL MOTION: DECREASED LEFT VENTRICULAR COMPLIANCE. NORMAL LEFT VENTRICULAR EJECTION FRACTION. DOPPLER/COLOR FLOW: 1. DECREASED LEFT VENTRICULAR COMPLIANCE. 2. SEVERE PULMONARY HYPERTENSION. COMMENTS: 1. NORMAL LEFT VENTRICULAR SIZE. EJECTION FRACTION 65%. 2. MILTRAL ANNULAR CALCIFICATION. 3. AORTIC SCLEROSIS. 4. SEVERE PULMONARY HYPERTENSION. RIGHT VENTRICULAR SYSTOLIC PRESSURE 65 mmHg. 5. DIASTOLIC DYSFUNCTION. Conclusions/Impression: Renal Transplant -Continue Tacrolimus and Mycophenolate Hyponatremia -Continue furosemide Hypokalemia -Replete potassium Metabolic Alkalosis -Replete potassium Hypomagnesemia -Replete prn HTN with CHF -Continue Labetolol Diastolic CHF, A/C Pulmonary HTN BL Pleural Effusions -Continue furosemide & spironolactone DM II -RISS LLE DVT -Continue Claudiaquis Thank you kindly for the consultation
[2022-07-03 04:03] LABS: Potassium 4.1 mEq/L (3.5-5.1); Uric Acid 5.8 mg/dL (3.5-7.2)
[2022-07-03] MEDS: INSULIN -REGULAR HUMAN 50 UNIT/0.5 ML ML SQ SCH ×4 (07:30→21:41)
[2022-07-03] MEDS: CYCLOSPORINE OPTH SCH ×2 (09:00→21:00)
[2022-07-03] MEDS: JUVEN PACKET PO SCH ×2 (09:00→21:00)
[2022-07-03] MEDS: MYCOPHENOLATE 500 MG PO SCH ×2 (09:00→21:33)
[2022-07-03] MEDS: TACROLIMUS 1 MG PO SCH ×2 (09:00→21:33)
[2022-07-03] MEDS: TAFLUPROST OPTH SCH ×2 (09:00→21:00)
[2022-07-03] MEDS: HOME MED 1 EA UNK (Brimonidine Tartrate [Lumify] 2.5 ML Drops) OPTH SCH ×2 (09:00→21:00)
[2022-07-03] MEDS: LABETALOL HCL 100 MG TAB PO SCH ×2 (09:18→21:33)
[2022-07-03] MEDS: POTASSIUM CL SA 10 MEQ TAB PO SCH (09:19)
[2022-07-03] MEDS: predniSONE 5 MG TAB PO SCH (09:20)
[2022-07-03] MEDS: MONTELUKAST 10 MG TAB PO SCH (09:20)
[2022-07-03] MEDS: SPIRONOLACTONE 25 MG TABLET PO SCH (09:20)
[2022-07-03] MEDS: DULOXETINE 30 MG CAP PO SCH (09:20)
[2022-07-03] MEDS: DIGOXIN 0.125 MG TABLET PO SCH (09:21)
[2022-07-03] MEDS: ASPIRIN EC 81 MG TAB PO SCH (09:21)
[2022-07-03] MEDS: PANTOPRAZOLE 40MG TABLET PO SCH ×2 (09:21→09:22)
[2022-07-03] MEDS: APIXABAN 5 MG TABLET PO SCH ×2 (09:21→21:33)
[2022-07-03] MEDS: FUROSEMIDE 40 MG/4 ML VIAL IV SCH ×2 (09:22→16:47)
[2022-07-03] MEDS: ROSUVASTATIN 10 MG TAB PO SCH (09:22)
[2022-07-03] MEDS: allopurinoL 100 MG TAB PO SCH ×2 (09:22→21:33)
[2022-07-03] MEDS: HUMALOG MIX 75/25 100 UNITS/ML SQ SCH ×2 (09:24→16:47)
[2022-07-03] MEDS: SILDENAFIL CITRATE 20 MG TABLET PO SCH ×2 (09:34→21:33)
[2022-07-03] MEDS: ARFORMOTEROL TARTRATE 15 MCG/2 ML VIAL.NEB NEB SCH ×2 (09:37→19:51)
[2022-07-03] MEDS: PRIMIDONE 50 MG TAB PO SCH ×3 (10:12→21:33)
[2022-07-03 11:31] LABS: Specific Gravity 1.018 (1.005-1.030); Urine Bacteria None Seen /HPF (<20); Urine Bilirubin NEGATIVE (Negative); Urine Blood Negative (Negative); Urine Clarity Clear (Clear); Urine Color Light-Yellow (Yellow); Urine Glucose NEGATIVE (Negative); Urine Protein NEGATIVE (Negative); Urine RBC <5 /HPF (None Seen); Urine Urobilinogen Normal (Normal)
[2022-07-03 14:16] LABS: Urine Protein/Creatinine Ratio 0.37 ratio (<0.15)
--- NOTE | 2022-07-03 18:47 | P.PN ---
Subjective Date of Service: 07/03/22 Primary Care Provider: Dr. Almendarez Chief Complaint: CHF Exacerbation/pulmonary hypertension No acute events overnight. He reports that he feels well this morning. He denies any symptoms this morning. He states that he is pending placement into acute rehab. Appreciate CM assistance. Review of Systems 10-point ROS is otherwise unremarkable General: Weakness (generalized) Physical Examination - Vital Signs Temperature: 96.5 F Blood Pressure: 138/69 Pulse: 69 Respirations: 16 Pulse Ox (%): 100 - Studies Microbiology Data (last 24 hrs): 06/27/22 16:40 Blood - Blood Aerobic Blood Culture - Final No growth in 5 days. 06/27/22 16:40 Blood - Blood Anaerobic Blood Culture - Final No growth in 5 days. 06/27/22 16:25 Blood - Blood Aerobic Blood Culture - Final No growth in 5 days. 06/27/22 16:25 Blood - Blood Anaerobic Blood Culture - Final No growth in 5 days. Medications List Reviewed: Yes Assessment And Plan - Plan - Physical Exam General: Alert, In no apparent distress, Oriented x3 HEENT: Atraumatic, Sclerae nonicteric Neck: JVD not distended Respiratory: Clear to auscultation bilaterally Cardiovascular: Regular rate/rhythm, No murmurs Gastrointestinal: Normal bowel sounds, Soft, Non-distended, No tenderness Musculoskeletal: No clubbing Integumentary: No rashes Neurological: Normal speech, Normal affect # Acute on Chronic Decompensated Diastolic Congestive Heart Failure with Preserved Ejection Fraction # Pulmonary Hypertension with Right Heart Strain - Consulted Cardiology and spoke with Dr. Michel - recommendations appreciated - Consulted Pulmonology and spoke with Dr. Kitchen - recommendations appreciated - Chest x-ray (06/27) = "these findings probably indicate CHF." - CT chest angiogram = "no evidence for pulmonary embolus. No aortic dissection or dilatation. Enlarged pulmonary arteries with findings indicating right heart strain. Enlarged heart with marked congestive heart failure. Bilateral in filtrate and atelectatic change versus pulmonary congestion." - Transthoracic echocardiogram = "1. normal left ventricular size. ejection fraction 65%. 2. miltral annular calcification. 3. aortic sclerosis. 4. severe pulmonary hypertension. right ventricular systolic pressure 65 mmHg. 5. diastolic dysfunction." - Diuresis with IV furosemide for today - Continue labetalol, spironolactone, sildenafil - Daily weights - Strict I/O - Cardiac diet, 1.5 L fluid restriction, 2 g Na restriction # Chronic Atrial Fibrillation s/p Watchman Device # Severe Aortic Stenosis s/p Transcatheter Aortic Valve Replacement # Acute Nonocclusive Left Popliteal Deep Venous Thrombosis - Left lower extremity Doppler = "nonocclusive acute thrombus left popliteal vein" - Continue home digoxin, labetalol - Continue apixaban # Deconditioning - PT consulted - recommendations appreciated - Pending IPR placement, appreciate CM assistance # History of Renal Transplant - Consulted Nephrology and spoke with Dr. Franco - recommendations appreciated - Continue home tacrolimus, mycophenelate, prednisone # Coronary Artery Disease s/p PCI to LAD (2020) # Hypertension # Hyperlipidemia - Continue aspirin, rosuvastatin, labetalol - Clopidogrel discontinued due to initiation of apixaban # Obstructive Sleep Apnea - May use home CPAP # Gastroesophageal Reflux Disease - Continue home pantoprazole # Gout - Continue home allopurinol 07/03/22 No new changes today. Pending placement. Appreciate CM assistance. Felix Veloz M.D.
--- NOTE | 2022-07-03 19:47 | P.PN ---
Date of Service: 07/03/22 Vital Signs Temp Pulse Resp BP Pulse Ox 96.5 F L 69 16 138/69 100 07/03/22 18:51 07/03/22 18:51 07/03/22 18:51 07/03/22 18:51 07/03/22 18:51 Medications Acetaminophen (Acetaminophen 325 Mg Tablet) 650 mg PO Q6H PRN PRN Reason: Pain scale 2-4 (Mild) Last Admin: 07/02/22 14:24 Dose: 650 mg Albuterol Sulfate (Albuterol 2.5 Mg/3 Ml Neb Ericka) 2.5 mg NEB [id number] PRN PRN Reason: SHORTNESS OF BREATH Last Admin: 07/01/22 19:30 Dose: 2.5 mg Allopurinol (Allopurinol 100 Mg Tab) 100 mg PO BID [facility] Last Admin: 07/03/22 09:22 Dose: 100 mg Apixaban (Apixaban 5 Mg Tablet) 5 mg PO BID [facility] Last Admin: 07/03/22 09:21 Dose: 5 mg Arformoterol Tartrate (Arformoterol Tartrate 15 Mcg/2 Ml Vial.Neb) 15 mcg NEB BIDRESP [facility] Last Admin: 07/03/22 09:37 Dose: 15 mcg Aspirin (Aspirin Ec 81 Mg Tab) 81 mg PO DAILY [facility] Last Admin: 07/03/22 09:21 Dose: 81 mg Cholestyramine Resin (Cholestyramine/Asp 4 Gm/Pkt) 8 gm PO BEDTIME [facility] Last Admin: 07/02/22 20:06 Dose: 8 gm Dextrose (D10w 250 Ml Bag) 125 ml IV PRN PRN; Protocol PRN Reason: HYPOGLYCEMIA Digoxin (Digoxin 0.125 Mg Tablet) 0.125 mg PO DAILY [facility] Last Admin: 07/03/22 09:21 Dose: 0.125 mg Duloxetine HCl (Duloxetine 30 Mg Cap) 30 mg PO DAILY [facility] Last Admin: 07/03/22 09:20 Dose: 30 mg Furosemide (Furosemide 40 Mg/4 Ml Vial) 40 mg IV BIDL [facility] Last Admin: 07/03/22 16:47 Dose: 40 mg Home Med (Brimonidine Tartrate [Lumify]) 1 gtt OPTH BID [facility] Last Admin: 07/03/22 09:00 Dose: 1 gtt Home Med (Carboxymethylcellulos/Glycerin [Refresh Optive Eye Drops]) 1 gtt OPTH Q2HP PRN PRN Reason: eye dryness Home Med (Cyclosporine [Restasis Multidose]) 1 gtt OPTH BID [facility] Last Admin: 07/03/22 09:00 Dose: 1 gtt Home Med (Home Med 1 Ea Unk [Tacrolimus 1 Mg Capsules (Ir)]) 3 ea PO BID [facility] Last Admin: 07/03/22 09:00 Dose: 3 ea Home Med (Home Med 1 Ea Unk [Mycophenolate 500 Mg Tablets]) 2 ea PO BID [facility] Last Admin: 07/03/22 09:00 Dose: 2 ea Home Med (Tafluprost/Pf [Zioptan 0.0015% Eye Drop]) 1 gtt OPTH BID [facility] Last Admin: 07/03/22 09:00 Dose: Not Given Insulin Human Regular (Insulin -Regular Human 50 Unit/0.5 Ml Ml) 0 unit SQ ACHS [facility]; Protocol Last Admin: 07/03/22 16:30 Dose: Not Given Insulin Lispro Protam/Lispro Human (Humalog Mix 75/25 100 Units/Ml) 20 units SQ BIDL [facility] Last Admin: 07/03/22 16:47 Dose: 20 units L-Arginine/L-Glutamine/HMB (Yoel Packet) 1 pkt PO BID [facility] Last Admin: 07/03/22 09:00 Dose: 1 pkt Labetalol HCl (Labetalol Hcl 100 Mg Tab) 200 mg PO BID [facility] Last Admin: 07/03/22 09:18 Dose: 200 mg Montelukast Sodium (Montelukast 10 Mg Tab) 10 mg PO DAILY [facility] Last Admin: 07/03/22 09:20 Dose: 10 mg Ondansetron HCl (Ondansetron 4 Mg/2 Ml Vial) 4 mg IV Q6HP PRN PRN Reason: NAUSEA / VOMITING Pantoprazole Sodium (Pantoprazole 40mg Tablet) 40 mg PO ACB [facility]; Protocol Last Admin: 07/03/22 09:22 Dose: 40 mg Potassium Chloride (Potassium Cl Sa 10 Meq Tab) 10 meq PO DAILY [facility] Last Admin: 07/03/22 09:19 Dose: 10 meq Prednisone (Prednisone 5 Mg Tab) 5 mg PO DAILY [facility] Last Admin: 07/03/22 09:20 Dose: 5 mg Primidone (Primidone 50 Mg Tab) 50 mg PO TID [facility] Last Admin: 07/03/22 15:09 Dose: 50 mg Rosuvastatin Calcium (Rosuvastatin 10 Mg Tab) 10 mg PO DAILY [facility] Last Admin: 07/03/22 09:22 Dose: 10 mg Sildenafil Citrate (Sildenafil Citrate 20 Mg Tablet) 20 mg PO BID [facility] Last Admin: 07/03/22 09:34 Dose: 20 mg Sodium Chloride (Flush Normal Saline 10 Ml) 10 ml IV BID [facility] Last Admin: 07/03/22 09:00 Dose: 10 ml Spironolactone (Spironolactone 25 Mg Tablet) 50 mg PO DAILY [facility] Last Admin: 07/03/22 09:20 Dose: 50 mg Microbiology Results 06/27/22 16:40 Blood - Blood Aerobic Blood Culture - Final No growth in 5 days. 06/27/22 16:40 Blood - Blood Anaerobic Blood Culture - Final No growth in 5 days. 06/27/22 16:25 Blood - Blood Aerobic Blood Culture - Final No growth in 5 days. 06/27/22 16:25 Blood - Blood Anaerobic Blood Culture - Final No growth in 5 days. Assessment/ Plan: Nephrology No dyspnea No chest pain Good urine output No acute events overnight Vitals, medications, blood work and imaging reviewed in the chart. General: Oriented x3, Cooperative HEENT: Atraumatic Neck: Supple Respiratory: Diminished Cardiovascular: No edema, Regular rate/rhythm Gastrointestinal: Soft and benign, Non-distended Musculoskeletal: No clubbing, No contractures Integumentary: No rashes, No cyanosis Neurological: Normal speech Blood work reviewed in the chart. Imagings Data: EXAM DESCRIPTION: [facility] Single View06/29/2022 5:09 am CLINICAL HISTORY: pneumonia COMPARISON: Chest Single View dated 06/27/2022; Chest Single View dated 01/12/2022; Chest Single View dated 01/10/2022; Chest Single View dated 01/08/2022 TECHNIQUE: Portable AP view of the chest. FINDINGS: Stable cardiomegaly and bilateral patchy basal predominant airspace opacities with dependently layering pleural effusions. No pneumothorax. No significant interval change. Mediastinal contours are otherwise unremarkable. IMPRESSION: Stable findings, which may relate to central congestive changes/CHF and/or superimposed pneumonia. EXAM DESCRIPTION: CT - Chest For Pe Angio - 06/28/2022 12:35 am CLINICAL HISTORY: 77 years Male SOB COMPARISON: Radiograph of the chest dated January 22, 2020 TECHNIQUE: Images were obtained and axial, sagittal, and coronal planes. Intravenous contrast was administered. 3-D MIP imaging was performed. This exam was performed according to our departmental dose-optimization program which includes use of Automated Exposure Control, adjustment of the mA and/or kV according to patient size and/or use of iterative reconstruction technique. FINDINGS: No filling defects pulmonary arteries bilaterally. No aortic dissection or dilatation. Main pulmonary artery is enlarged measuring 5.8 cm in transverse dimension. Right main pulmonary artery measures 3.4 cm in transverse dimension. Left main pulmonary artery measures 3.5 cm in transverse dimension. Right heart strain. Small pericardial effusion. Enlarged 3.7 cm lymph node aorticopulmonary window. Moderate to large bilateral pleural effusions. Enlarged heart. Increased pulmonary vascularity. Airspace attenuation posterior lingula and left upper lobe as well as lower lobes bilaterally consistent with infiltrate and atelectatic change versus pulmonary congestion. No pneumothorax. Atrophic changes kidneys bilaterally with renal parenchymal thinning noted. 3.4 cm cyst lateral left kidney. No acute osseous abnormality. Dorsal kyphosis. Calcification anterior longitudinal ligament. IMPRESSION: No evidence for pulmonary embolus. No aortic dissection or dilatation. Enlarged pulmonary arteries with findings indicating right heart strain. Enlarged heart with marked congestive heart failure. Bilateral infiltrate and atelectatic change versus pulmonary congestion. EXAM DESCRIPTION: [facility]06/27/2022 8:21 pm CLINICAL HISTORY: left leg swelling COMPARISON: 2021 FINDINGS: Echogenic material having the appearance of acute thrombus is present within the left popliteal vein. Vein is partially compressible. Left common femoral, superficial femoral, greater saphenous, and posterior tibial veins are compressible and demonstrate augmentation. Doppler demonstrates good flow. Grayscale, color and spectral analysis performed on all vessels IMPRESSION: Nonocclusive acute thrombus left popliteal vein [facility] 4:39 pm CLINICAL HISTORY: sob COMPARISON: 2021 FINDINGS: Moderate bilateral pulmonary opacities. Heart is markedly enlarged IMPRESSION: These findings probably indicate CHF LEFT VENTRICULAR WALL MOTION: DECREASED LEFT VENTRICULAR COMPLIANCE. NORMAL LEFT VENTRICULAR EJECTION FRACTION. DOPPLER/COLOR FLOW: 1. DECREASED LEFT VENTRICULAR COMPLIANCE. 2. SEVERE PULMONARY HYPERTENSION. COMMENTS: 1. NORMAL LEFT VENTRICULAR SIZE. EJECTION FRACTION 65%. 2. MILTRAL ANNULAR CALCIFICATION. 3. AORTIC SCLEROSIS. 4. SEVERE PULMONARY HYPERTENSION. RIGHT VENTRICULAR SYSTOLIC PRESSURE 65 mmHg. 5. DIASTOLIC DYSFUNCTION. Conclusions/Impression: Renal Transplant Proteinuria -Continue Tacrolimus and Mycophenolate Hyponatremia -Continue furosemide Hypokalemia -Replete potassium Metabolic Alkalosis -Replete potassium Hypomagnesemia -Replete prn HTN with CHF -Continue Labetolol ROSANA -Continue CPAP Diastolic CHF, A/C BL Pleural Effusions Pulmonary HTN Severe sp TAVR -Continue furosemide & spironolactone DM II A1C 6 -RISS LLE DVT -Continue Eliquis Case reviewed with Dr. Veloz
[2022-07-03] MEDS: CHOLESTYRAMINE/ASP 4 GM/PKT PO SCH (21:33)
[2022-07-04] MEDS: INSULIN -REGULAR HUMAN 50 UNIT/0.5 ML ML SQ SCH ×4 (07:30→21:00)
[2022-07-04] MEDS: ARFORMOTEROL TARTRATE 15 MCG/2 ML VIAL.NEB NEB SCH ×2 (08:00→20:15)
[2022-07-04] MEDS: PANTOPRAZOLE 40MG TABLET PO SCH (08:41)
[2022-07-04] MEDS: DULOXETINE 30 MG CAP PO SCH (08:41)
[2022-07-04] MEDS: APIXABAN 5 MG TABLET PO SCH ×2 (08:41→21:47)
[2022-07-04] MEDS: DIGOXIN 0.125 MG TABLET PO SCH (08:42)
[2022-07-04] MEDS: MONTELUKAST 10 MG TAB PO SCH (08:42)
[2022-07-04] MEDS: SPIRONOLACTONE 25 MG TABLET PO SCH (08:42)
[2022-07-04] MEDS: ROSUVASTATIN 10 MG TAB PO SCH (08:43)
[2022-07-04] MEDS: predniSONE 5 MG TAB PO SCH (08:43)
[2022-07-04] MEDS: ASPIRIN EC 81 MG TAB PO SCH (08:43)
[2022-07-04] MEDS: POTASSIUM CL SA 10 MEQ TAB PO SCH (08:43)
[2022-07-04] MEDS: HUMALOG MIX 75/25 100 UNITS/ML SQ SCH ×2 (08:43→16:59)
[2022-07-04] MEDS: TACROLIMUS 1 MG PO SCH ×2 (08:44→08:45)
[2022-07-04] MEDS: FUROSEMIDE 40 MG/4 ML VIAL IV SCH (08:44)
[2022-07-04] MEDS: MYCOPHENOLATE 500 MG PO SCH ×2 (08:45→21:49)
[2022-07-04] MEDS: PRIMIDONE 50 MG TAB PO SCH ×3 (08:46→21:48)
[2022-07-04] MEDS: SILDENAFIL CITRATE 20 MG TABLET PO SCH ×2 (08:46→21:49)
[2022-07-04] MEDS: CYCLOSPORINE OPTH SCH ×2 (08:47→21:00)
[2022-07-04] MEDS: HOME MED 1 EA UNK (Brimonidine Tartrate [Lumify] 2.5 ML Drops) OPTH SCH ×2 (08:47→21:00)
[2022-07-04] MEDS: JUVEN PACKET PO SCH ×2 (08:47→21:00)
[2022-07-04] MEDS: TAFLUPROST OPTH SCH ×2 (08:49→21:00)
[2022-07-04] MEDS: LABETALOL HCL 100 MG TAB PO SCH ×2 (08:51→21:47)
[2022-07-04] MEDS: allopurinoL 100 MG TAB PO SCH ×2 (08:51→21:47)
--- NOTE | 2022-07-04 11:17 | P.PN ---
Nephrology note (S) Pt denies any resp distress, on O2, no sig cough, no CP Vitals, medications, blood work and imaging reviewed in the chart. General: Oriented x3, Cooperative HEENT: Atraumatic, on LFNC Neck: Supple Respiratory: Diminished at bases Cardiovascular: No edema, Regular rate/rhythm, cardiac murmur present Gastrointestinal: Soft and benign, Non-distended Musculoskeletal: muscle mass loss Integumentary: No rashes, No cyanosis Neurological: Normal speech, awake, alert, non focal Blood work reviewed in the chart. Imagings Data: EXAM DESCRIPTION: CT - Chest For Pe Angio - 06/28/2022 12:35 am CLINICAL HISTORY: 77 years Male SOB COMPARISON: Radiograph of the chest dated January 22, 2020 TECHNIQUE: Images were obtained and axial, sagittal, and coronal planes. Intravenous contrast was administered. 3-D MIP imaging was performed. This exam was performed according to our departmental dose-optimization program which includes use of Automated Exposure Control, adjustment of the mA and/or kV according to patient size and/or use of iterative reconstruction technique. FINDINGS: No filling defects pulmonary arteries bilaterally. No aortic dissection or dilatation. Main pulmonary artery is enlarged measuring 5.8 cm in transverse dimension. Right main pulmonary artery measures 3.4 cm in transverse dimension. Left main pulmonary artery measures 3.5 cm in transverse dimension. Right heart strain. Small pericardial effusion. Enlarged 3.7 cm lymph node aorticopulmonary window. Moderate to large bilateral pleural effusions. Enlarged heart. Increased pulmonary vascularity. Airspace attenuation posterior lingula and left upper lobe as well as lower lobes bilaterally consistent with infiltrate and atelectatic change versus pulmonary congestion. No pneumothorax. Atrophic changes kidneys bilaterally with renal parenchymal thinning noted. 3.4 cm cyst lateral left kidney. No acute osseous abnormality. Dorsal kyphosis. Calcification anterior longitudinal ligament. IMPRESSION: No evidence for pulmonary embolus. No aortic dissection or dilatation. Enlarged pulmonary arteries with findings indicating right heart strain. Enlarged heart with marked congestive heart failure. Bilateral infiltrate and atelectatic change versus pulmonary congestion. EXAM DESCRIPTION: US[facility]rem[facility]06/27/2022 8:21 pm CLINICAL HISTORY: left leg swelling COMPARISON: 2021 FINDINGS: Echogenic material having the appearance of acute thrombus is present within the left popliteal vein. Vein is partially compressible. Left common femoral, superficial femoral, greater saphenous, and posterior tibial veins are compressible and demonstrate augmentation. Doppler demonstrates good flow. Grayscale, color and spectral analysis performed on all vessels IMPRESSION: Nonocclusive acute thrombus left popliteal vein EXAM DESCRIPTION: [facility] Single View06/27/2022 4:39 pm CLINICAL HISTORY: sob COMPARISON: 2021 FINDINGS: Moderate bilateral pulmonary opacities. Heart is markedly enlarged IMPRESSION: These findings probably indicate CHF LEFT VENTRICULAR WALL MOTION: DECREASED LEFT VENTRICULAR COMPLIANCE. NORMAL LEFT VENTRICULAR EJECTION FRACTION. DOPPLER/COLOR FLOW: 1. DECREASED LEFT VENTRICULAR COMPLIANCE. 2. SEVERE PULMONARY HYPERTENSION. COMMENTS: 1. NORMAL LEFT VENTRICULAR SIZE. EJECTION FRACTION 65%. 2. MILTRAL ANNULAR CALCIFICATION. 3. AORTIC SCLEROSIS. 4. SEVERE PULMONARY HYPERTENSION. RIGHT VENTRICULAR SYSTOLIC PRESSURE 65 mmHg. 5. DIASTOLIC DYSFUNCTION. Conclusions/Impression: Hx of Renal Transplant Mild Proteinuria, Up/c < 0.5, microalbuminuria UACR > 30 but < 100 mg/g -Stable allograft function, cont current IS Monitor lytes Metabolic Alkalosis 2nd to COPD, CHF, diuresis, other -Will add low dose Diamox given pt's COPD Diastolic CHF, A/C BL Pleural Effusions Pulmonary HTN Severe sp TAVR -Will de-escalate loop diuretics, cont Spironolactone, will add Diamox Lenard Castañeda MD, TERI
[2022-07-04] MEDS: acetaZOLAMIDE 250 MG TAB PO SCH (11:57)
[2022-07-04] MEDS: FUROSEMIDE 20 MG/ 2ML VIAL IV SCH (16:59)
--- NOTE | 2022-07-04 18:23 | P.PN ---
Subjective Date of Service: 07/04/22 Primary Care Provider: Dr. Almendarez Chief Complaint: CHF Exacerbation/pulmonary hypertension No acute events overnight. He reports no concerns this morning. [id number] completed with his insurance, who denied him for inpatient rehab. They have pre- approved him for SNF. I reviewed this with him, and he is interested in SNF placement. Appreciate CM assistance. Review of Systems 10-point ROS is otherwise unremarkable Physical Examination - Vital Signs Temperature: 98.1 F Blood Pressure: 114/61 Pulse: 70 Respirations: 20 Pulse Ox (%): 99 - Studies Medications List Reviewed: Yes Assessment And Plan - Plan - Physical Exam General: Alert, In no apparent distress, Oriented x3 HEENT: Atraumatic, Sclerae nonicteric Neck: JVD not distended Respiratory: Clear to auscultation bilaterally Cardiovascular: Regular rate/rhythm, No murmurs Gastrointestinal: Normal bowel sounds, Soft, Non-distended, No tenderness Musculoskeletal: No clubbing Integumentary: No rashes Neurological: Normal speech, Normal affect # Acute on Chronic Decompensated Diastolic Congestive Heart Failure with Preserved Ejection Fraction # Pulmonary Hypertension with Right Heart Strain - Consulted Cardiology and spoke with Dr. Michel - recommendations appreciated - Consulted Pulmonology and spoke with Dr. Kitchne - recommendations appre ciated - Chest x-ray (06/27) = "these findings probably indicate CHF." - CT chest angiogram = "no evidence for pulmonary embolus. No aortic dissection or dilatation. Enlarged pulmonary arteries with findings indicating right heart strain. Enlarged heart with marked congestive heart failure. Bilateral infiltrate and atelectatic change versus pulmonary congestion." - Transthoracic echocardiogram = "1. normal left ventricular size. ejection fraction 65%. 2. miltral annular calcification. 3. aortic sclerosis. 4. severe pulmonary hypertension. right ventricular systolic pressure 65 mmHg. 5. diastoli c dysfunction." - Diuresis with IV furosemide for today - Continue labetalol, spironolactone, sildenafil - Daily weights - Strict I/O - Cardiac diet, 1.5 L fluid restriction, 2 g Na restriction # Chronic Atrial Fibrillation s/p Watchman Device # Severe Aortic Stenosis s/p Transcatheter Aortic Valve Replacement # Acute Nonocclusive Left Popliteal Deep Venous Thrombosis - Left lower extremity Doppler = "nonocclusive acute thrombus left popliteal vein" - Continue home digoxin, labetalol - Continue apixaban # Deconditioning - PT consulted - recommendations appreciated - Pending IPR placement, appreciate CM assistance # History of Renal Transplant - Consulted Nephrology and spoke with Dr. Franco - recommendations appreciated - Continue home tacrolimus, mycophenelate, prednisone # Coronary Artery Disease s/p PCI to LAD (2020) # Hypertension # Hyperlipidemia - Continue aspirin, rosuvastatin, labetalol - Clopidogrel discontinued due to initiation of apixaban # Obstructive Sleep Apnea - May use home CPAP # Gastroesophageal Reflux Disease - Continue home pantoprazole # Gout - Continue home allopurinol 07/03/22 No new changes today. Pending placement. Appreciate CM assistance. 07/04/22 P2P completed with his insurance, who denied inpatient rehab. They pre-approved him for SNF. He is in agreement with SNF. CM assistance appreciated. Felix Veloz M.D.
[2022-07-04] MEDS: CHOLESTYRAMINE/ASP 4 GM/PKT PO SCH (21:00)
[2022-07-05] MEDS: INSULIN -REGULAR HUMAN 50 UNIT/0.5 ML ML SQ SCH ×4 (07:30→20:17)
[2022-07-05] MEDS: ARFORMOTEROL TARTRATE 15 MCG/2 ML VIAL.NEB NEB SCH ×2 (08:29→20:00)
[2022-07-05] MEDS: HOME MED 1 EA UNK (Brimonidine Tartrate [Lumify] 2.5 ML Drops) OPTH SCH ×2 (09:00→20:10)
[2022-07-05] MEDS: TAFLUPROST OPTH SCH ×2 (09:00→20:12)
[2022-07-05] MEDS: JUVEN PACKET PO SCH ×2 (09:00→20:11)
[2022-07-05] MEDS: CYCLOSPORINE OPTH SCH ×2 (09:00→20:10)
[2022-07-05] MEDS: DULOXETINE 30 MG CAP PO SCH (09:28)
[2022-07-05] MEDS: SPIRONOLACTONE 25 MG TABLET PO SCH (09:28)
[2022-07-05] MEDS: POTASSIUM CL SA 10 MEQ TAB PO SCH (09:28)
[2022-07-05] MEDS: allopurinoL 100 MG TAB PO SCH ×2 (09:28→20:13)
[2022-07-05] MEDS: DIGOXIN 0.125 MG TABLET PO SCH (09:28)
[2022-07-05] MEDS: ASPIRIN EC 81 MG TAB PO SCH (09:28)
[2022-07-05] MEDS: acetaZOLAMIDE 250 MG TAB PO SCH (09:28)
[2022-07-05] MEDS: ROSUVASTATIN 10 MG TAB PO SCH (09:28)
[2022-07-05] MEDS: predniSONE 5 MG TAB PO SCH (09:28)
[2022-07-05] MEDS: MONTELUKAST 10 MG TAB PO SCH (09:28)
[2022-07-05] MEDS: PRIMIDONE 50 MG TAB PO SCH ×3 (09:29→20:12)
[2022-07-05] MEDS: MYCOPHENOLATE 500 MG PO SCH ×2 (09:29→20:11)
[2022-07-05] MEDS: FUROSEMIDE 20 MG/ 2ML VIAL IV SCH ×2 (09:29→17:07)
[2022-07-05] MEDS: APIXABAN 5 MG TABLET PO SCH ×2 (09:29→20:10)
[2022-07-05] MEDS: HUMALOG MIX 75/25 100 UNITS/ML SQ SCH ×2 (09:29→17:07)
[2022-07-05] MEDS: SILDENAFIL CITRATE 20 MG TABLET PO SCH ×2 (09:29→20:12)
[2022-07-05] MEDS: TACROLIMUS 1 MG PO SCH ×2 (09:30→20:10)
[2022-07-05] MEDS: LABETALOL HCL 100 MG TAB PO SCH ×2 (09:40→20:13)
--- NOTE | 2022-07-05 19:05 | P.PN ---
Subjective Date of Service: 07/05/22 Primary Care Provider: Dr. Almendarez Chief Complaint: CHF Exacerbation/pulmonary hypertension No acute events overnight. He reports no concerns this morning. He stated that he would like to go to [facility]. Appreciate CM assistance. Review of Systems 10-point ROS is otherwise unremarkable Physical Examination - Vital Signs Temperature: 97.7 F Blood Pressure: 104/59 Pulse: 74 Respirations: 14 Pulse Ox (%): 96 - Studies Medications List Reviewed: Yes Assessment And Plan - Plan - Physical Exam General: Alert, In no apparent distress, Oriented x3 HEENT: Atraumatic, Sclerae nonicteric Neck: JVD not distended Respiratory: Clear to auscultation bilaterally Cardiovascular: Regular rate/rhythm, No murmurs Gastrointestinal: Normal bowel sounds, Soft, Non-distended, No tenderness Musculoskeletal: No clubbing Integumentary: No rashes Neurological: Normal speech, Normal affect # Acute on Chronic Decompensated Diastolic Congestive Heart Failure with Preserved Ejection Fraction # Pulmonary Hypertension with Right Heart Strain - Consulted Cardiology and spoke with Dr. Michel - recommendations appreciated - Consulted Pulmonology and spoke with Dr. Kitchen - recommendations appreciated - Chest x-ray (06/27) = "these findings probably indicate CHF." - CT chest angiogram = "no evidence for pulmonary embolus. No aortic dissection or dilatation. Enlarged pulmonary arteries with findings indicating right heart strain. Enlarged heart with marked congestive heart failure. Bilateral infiltrate and atelectatic change versus pulmonary congestion." - Transthoracic echocardiogram = "1. normal left ventricular size. ejection fraction 65%. 2. miltral annular calcification. 3. aortic sclerosis. 4. severe pulmonary hypertension. right ventricular systolic pressure 65 mmHg. 5. diastolic dysfunction." - Diuresis with IV furosemide for today - Continue labetalol, spironolactone, sildenafil - Daily weights - Strict I/O - Cardiac diet, 1.5 L fluid restriction, 2 g Na restriction # Chronic Atrial Fibrillation s/p Watchman Device # Severe Aortic Stenosis s/p Transcatheter Aortic Valve Replacement # Acute Nonocclusive Left Popliteal Deep Venous Thrombosis - Left lower extremity Doppler = "nonocclusive acute thrombus left popliteal vein" - Continue home digoxin, labetalol - Continue apixaban # Deconditioning - PT consulted - recommendations appreciated - Pending IPR placement, appreciate CM assistance # History of Renal Transplant - Consulted Nephrology and spoke with Dr. Franco - recommendations appreciated - Continue home tacrolimus, mycophenelate, prednisone # Coronary Artery Disease s/p PCI to LAD (2020) # Hypertension # Hyperlipidemia - Continue aspirin, rosuvastatin, labetalol - Clopidogrel discontinued due to initiation of apixaban # Obstructive Sleep Apnea - May use home CPAP # Gastroesophageal Reflux Disease - Continue home pantoprazole # Gout - Continue home allopurinol 07/03/22 No new changes today. Pending placement. Appreciate CM assistance. 07/04/22 P2P completed with his insurance, who denied inpatient rehab. They pre-approved him for SNF. He is in agreement with SNF. CM assistance appreciated. 07/05/22 He has chosen [facility] for SNF. Appreciate CM assistance with placement. Felix Veloz M.D.
[2022-07-05] MEDS: CHOLESTYRAMINE/ASP 4 GM/PKT PO SCH (20:12)
--- NOTE | 2022-07-05 20:49 | P.PN ---
Date of Service: 07/05/22 Vital Signs Temp Pulse Resp BP Pulse Ox 97.2 F 77 20 128/58 L 98 07/05/22 20:00 07/05/22 20:13 07/05/22 20:00 07/05/22 20:13 07/05/22 20:00 Medications Acetaminophen (Acetaminophen 325 Mg Tablet) 650 mg PO Q6H PRN PRN Reason: Pain scale 2-4 (Mild) Last Admin: 07/02/22 14:24 Dose: 650 mg Acetazolamide (Acetazolamide 250 Mg Tab) 250 mg PO DAILY [facility] Last Admin: 07/05/22 09:28 Dose: 250 mg Albuterol Sulfate (Albuterol 2.5 Mg/3 Ml Neb Ericka) 2.5 mg NEB [id number] PRN PRN Reason: SHORTNESS OF BREATH Last Admin: 07/01/22 19:30 Dose: 2.5 mg Allopurinol (Allopurinol 100 Mg Tab) 100 mg PO BID [facility] Last Admin: 07/05/22 20:13 Dose: 100 mg Apixaban (Apixaban 5 Mg Tablet) 5 mg PO BID [facility] Last Admin: 07/05/22 20:10 Dose: 5 mg Arformoterol Tartrate (Arformoterol Tartrate 15 Mcg/2 Ml Vial.Neb) 15 mcg NEB BIDRESP [facility] Last Admin: 07/05/22 08:29 Dose: 15 mcg Aspirin (Aspirin Ec 81 Mg Tab) 81 mg PO DAILY [facility] Last Admin: 07/05/22 09:28 Dose: 81 mg Cholestyramine Resin (Cholestyramine/Asp 4 Gm/Pkt) 8 gm PO BEDTIME [facility] Last Admin: 07/05/22 20:12 Dose: 8 gm Dextrose (D10w 250 Ml Bag) 125 ml IV PRN PRN; Protocol PRN Reason: HYPOGLYCEMIA Digoxin (Digoxin 0.125 Mg Tablet) 0.125 mg PO DAILY [facility] Last Admin: 07/05/22 09:28 Dose: 0.125 mg Duloxetine HCl (Duloxetine 30 Mg Cap) 30 mg PO DAILY [facility] Last Admin: 07/05/22 09:28 Dose: 30 mg Furosemide (Furosemide 20 Mg/ 2ml Vial) 20 mg IV BIDL [facility] Last Admin: 07/05/22 17:07 Dose: 20 mg Home Med (Brimonidine Tartrate [Lumify]) 1 gtt OPTH BID [facility] Last Admin: 07/05/22 20:10 Dose: 1 gtt Home Med (Carboxymethylcellulos/Glycerin [Refresh Optive Eye Drops]) 1 gtt OPTH Q2HP PRN PRN Reason: eye dryness Home Med (Cyclosporine [Restasis Multidose]) 1 gtt OPTH BID [facility] Last Admin: 07/05/22 20:10 Dose: Not Given Home Med (Home Med 1 Ea Unk [Tacrolimus 1 Mg Capsules (Ir)]) 3 ea PO BID [facility] Last Admin: 07/05/22 20:10 Dose: 3 ea Home Med (Home Med 1 Ea Unk [Mycophenolate 500 Mg Tablets]) 2 ea PO BID [facility] Last Admin: 07/05/22 20:11 Dose: 2 ea Home Med (Tafluprost/Pf [Zioptan 0.0015% Eye Drop]) 1 gtt OPTH BID [facility] Last Admin: 07/05/22 20:12 Dose: 1 gtt Insulin Human Regular (Insulin -Regular Human 50 Unit/0.5 Ml Ml) 0 unit SQ ACHS [facility]; Protocol Last Admin: 07/05/22 20:17 Dose: Not Given Insulin Lispro Protam/Lispro Human (Humalog Mix 75/25 100 Units/Ml) 20 units SQ BIDL [facility] Last Admin: 07/05/22 17:07 Dose: 20 units L-Arginine/L-Glutamine/HMB (Yoel Packet) 1 pkt PO BID [facility] Last Admin: 07/05/22 20:11 Dose: 1 pkt Labetalol HCl (Labetalol Hcl 100 Mg Tab) 200 mg PO BID [facility] Last Admin: 07/05/22 20:13 Dose: 200 mg Montelukast Sodium (Montelukast 10 Mg Tab) 10 mg PO DAILY [facility] Last Admin: 07/05/22 09:28 Dose: 10 mg Ondansetron HCl (Ondansetron 4 Mg/2 Ml Vial) 4 mg IV Q6HP PRN PRN Reason: NAUSEA / VOMITING Pantoprazole Sodium (Pantoprazole 40mg Tablet) 40 mg PO ACB [facility]; Protocol Last Admin: 07/04/22 08:41 Dose: 40 mg Potassium Chloride (Potassium Cl Sa 10 Meq Tab) 10 meq PO DAILY [facility] Last Admin: 07/05/22 09:28 Dose: 10 meq Prednisone (Prednisone 5 Mg Tab) 5 mg PO DAILY [facility] Last Admin: 07/05/22 09:28 Dose: 5 mg Primidone (Primidone 50 Mg Tab) 50 mg PO TID [facility] Last Admin: 07/05/22 20:12 Dose: 50 mg Rosuvastatin Calcium (Rosuvastatin 10 Mg Tab) 10 mg PO DAILY [facility] Last Admin: 07/05/22 09:28 Dose: 10 mg Sildenafil Citrate (Sildenafil Citrate 20 Mg Tablet) 20 mg PO BID [facility] Last Admin: 07/05/22 20:12 Dose: 20 mg Sodium Chloride (Flush Normal Saline 10 Ml) 10 ml IV BID [facility] Last Admin: 07/05/22 09:00 Dose: 10 ml Spironolactone (Spironolactone 25 Mg Tablet) 50 mg PO DAILY [facility] Last Admin: 07/05/22 09:28 Dose: 50 mg Microbiology Results 06/27/22 16:40 Blood - Blood Aerobic Blood Culture - Final No growth in 5 days. 06/27/22 16:40 Blood - Blood Anaerobic Blood Culture - Final No growth in 5 days. 06/27/22 16:25 Blood - Blood Aerobic Blood Culture - Final No growth in 5 days. 06/27/22 16:25 Blood - Blood Anaerobic Blood Culture - Final No growth in 5 days. Assessment/ Plan: Nephrology No dyspnea No chest pain Feeling better No acute events overnight Vitals, medications, blood work and imaging reviewed in the chart. General: Oriented x3, Cooperative HEENT: Atraumatic Neck: Supple Respiratory: Diminished Cardiovascular: No edema, Regular rate/rhythm Gastrointestinal: Soft and benign, Non-distended Musculoskeletal: No clubbing, No contractures Integumentary: No rashes, No cyanosis Neurological: Normal speech Blood work reviewed in the chart. Imagings Data: [facility] CLINICAL HISTORY: pneumonia COMPARISON: Chest Single View dated 06/27/2022; Chest Single View dated 01/12/2022; Chest Single View dated 01/10/2022; Chest Single View dated 01/08/2022 TECHNIQUE: Portable AP view of the chest. FINDINGS: Stable cardiomegaly and bilateral patchy basal predominant airspace opacities with dependently layering pleural effusions. No pneumothorax. No significant interval change. Mediastinal contours are otherwise unremarkable. IMPRESSION: Stable findings, which may relate to central congestive changes/CHF and/or superimposed pneumonia. EXAM DESCRIPTION: CT - Chest For Pe Angio - 06/28/2022 12:35 am CLINICAL HISTORY: 77 years Male SOB COMPARISON: Radiograph of the chest dated January 22, 2020 TECHNIQUE: Images were obtained and axial, sagittal, and coronal planes. Intravenous contrast was administered. 3-D MIP imaging was performed. This exam was performed according to our departmental dose-optimization program which includes use of Automated Exposure Control, adjustment of the mA and/or kV according to patient size and/or use of iterative reconstruction technique. FINDINGS: No filling defects pulmonary arteries bilaterally. No aortic dissection or dilatation. Main pulmonary artery is enlarged measuring 5.8 cm in transverse dimension. Right main pulmonary artery measures 3.4 cm in transverse dimension. Left main pulmonary artery measures 3.5 cm in transverse dimension. Right heart strain. Small pericardial effusion. Enlarged 3.7 cm lymph node aorticopulmonary window. Moderate to large bilateral pleural effusions. Enlarged heart. Increased pulmonary vascularity. Airspace attenuation posterior lingula and left upper lobe as well as lower lobes bilaterally consistent with infiltrate and atelectatic change versus pulmonary congestion. No pneumothorax. Atrophic changes kidneys bilaterally with renal parenchymal thinning noted. 3.4 cm cyst lateral left kidney. No acute osseous abnormality. Dorsal kyphosis. Calcification anterior longitudinal ligament. IMPRESSION: No evidence for pulmonary embolus. No aortic dissection or dilatation. Enlarged pulmonary arteries with findings indicating right heart strain. Enlarged heart with marked congestive heart failure. Bilateral infi ltrate and atelectatic change versus pulmonary congestion. EXAM DESCRIPTION: [facility]rem[facility]06/27/2022 8:21 pm CLINICAL HISTORY: left leg swelling COMPARISON: 2021 FINDINGS: Echogenic material having the appearance of acute thrombus is present within the left popliteal vein. Vein is partially compressible. Left common femoral, superficial femoral, greater saphenous, and posterior tibial veins are compressible and demonstrate augmentation. Doppler demonstrates good flow. Grayscale, color and spectral analysis performed on all vessels IMPRESSION: Nonocclusive acute thrombus left popliteal vein EXAM DESCRIPTION: RADChest Single View06/27/2022 4:39 pm CLINICAL HISTORY: sob COMPARISON: 2021 FINDINGS: Moderate bilateral pulmonary opacities. Heart is markedly enlarged IMPRESSION: These findings probably indicate CHF LEFT VENTRICULAR WALL MOTION: DECREASED LEFT VENTRICULAR COMPLIANCE. NORMAL LEFT VENTRICULAR EJECTION FRACTION. DOPPLER/COLOR FLOW: 1. DECREASED LEFT VENTRICULAR COMPLIANCE. 2. SEVERE PULMONARY HYPERTENSION. COMMENTS: 1. NORMAL LEFT VENTRICULAR SIZE. EJECTION FRACTION 65%. 2. MILTRAL ANNULAR CALCIFICATION. 3. AORTIC SCLEROSIS. 4. SEVERE PULMONARY HYPERTENSION. RIGHT VENTRICULAR SYSTOLIC PRESSURE 65 mmHg. 5. DIASTOLIC DYSFUNCTION. Conclusions/Impression: Renal Transplant Proteinuria -Continue Tacrolimus and Mycophenolate -Continue Prednisone Hyponatremia -Continue furosemide Hypokalemia -Replete potassium Metabolic Alkalosis -Replete potassium -Continue Diamox Hypomagnesemia -Replete prn HTN with CHF -Continue Labetolol ROSANA -Continue CPAP Diastolic CHF, A/C BL Pleural Effusions Pulmonary HTN Severe sp TAVR -Continue spironolactone -Change Lasix PO DM II A1C 6 -RISS LLE DVT -Continue Eliquis Case reviewed with Dr. Veloz
[2022-07-06] MEDS: INSULIN -REGULAR HUMAN 50 UNIT/0.5 ML ML SQ SCH ×3 (07:30→16:30)
[2022-07-06] MEDS: ARFORMOTEROL TARTRATE 15 MCG/2 ML VIAL.NEB NEB SCH (08:00)
[2022-07-06] MEDS: CYCLOSPORINE OPTH SCH (09:00)
[2022-07-06] MEDS: HOME MED 1 EA UNK (Brimonidine Tartrate [Lumify] 2.5 ML Drops) OPTH SCH (09:00)
[2022-07-06] MEDS: JUVEN PACKET PO SCH (09:00)
[2022-07-06] MEDS: TAFLUPROST OPTH SCH (09:00)
[2022-07-06] MEDS: TACROLIMUS 1 MG PO SCH (09:43)
[2022-07-06] MEDS: HUMALOG MIX 75/25 100 UNITS/ML SQ SCH ×2 (09:43→17:46)
[2022-07-06] MEDS: MYCOPHENOLATE 500 MG PO SCH (09:43)
[2022-07-06] MEDS: PANTOPRAZOLE 40MG TABLET PO SCH (09:44)
[2022-07-06] MEDS: ASPIRIN EC 81 MG TAB PO SCH (09:44)
[2022-07-06] MEDS: acetaZOLAMIDE 250 MG TAB PO SCH (09:44)
[2022-07-06] MEDS: MONTELUKAST 10 MG TAB PO SCH (09:44)
[2022-07-06] MEDS: DIGOXIN 0.125 MG TABLET PO SCH (09:44)
[2022-07-06] MEDS: PRIMIDONE 50 MG TAB PO SCH ×2 (09:44→14:00)
[2022-07-06] MEDS: FUROSEMIDE 40 MG TABLET PO SCH ×2 (09:44→17:45)
[2022-07-06] MEDS: SILDENAFIL CITRATE 20 MG TABLET PO SCH (09:44)
[2022-07-06] MEDS: LABETALOL HCL 100 MG TAB PO SCH (09:44)
[2022-07-06] MEDS: POTASSIUM CL SA 10 MEQ TAB PO SCH (09:45)
[2022-07-06] MEDS: predniSONE 5 MG TAB PO SCH (09:45)
[2022-07-06] MEDS: SPIRONOLACTONE 25 MG TABLET PO SCH (09:45)
[2022-07-06] MEDS: APIXABAN 5 MG TABLET PO SCH (09:45)
[2022-07-06] MEDS: ROSUVASTATIN 10 MG TAB PO SCH (09:45)
[2022-07-06] MEDS: DULOXETINE 30 MG CAP PO SCH (09:45)
[2022-07-06] MEDS: allopurinoL 100 MG TAB PO SCH (09:46)
[2022-07-06 09:59] VITALS: O2SAT 98
--- NOTE | 2022-07-06 13:26 | P.DS ---
Admission Date: 06/29/22 Discharge Date: 07/06/22 Primary Care Provider: Dr. Almendarez Disposition: TRANSFER TO RETIREMENT Discharge Condition: GOOD Reason for Admission: CHF Exacerbation/pulmonary hypertension Consultations: 1. Cardiology 2. Pulmonology 3. 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 Yunior Lewis is a pleasant 77-year-old male with a past medical history significant for chronic diastolic congestive heart failure, pulmonary hypertension with right heart strain, chronic atrial fibrillation s/p Watchman device, severe aortic stenosis s/p TAVR, prior renal transplant, coronary artery disease s/p PCI, hypertension, hyperlipidemia, obstructive sleep apnea, GERD, and gout who was admitted to the [facility] on 06/29/2022 for shortness of breath. He was admitted to the Medicine service. Upon further evaluation, he was found to have an acute decompensated diastolic congestive heart failure exacerbation. His chest x-ray revealed, "these findings probably indicate CHF." Cardiology was consulted and he was evaluated by Dr. Michel. He was treated with diuretics, and over the course of his hospitalization, his symptoms improved significantly. His chest x-ray today revealed, "moderate improvement in lung aeration noted since the comparative study." Dr. Michel has cleared him for discharge from a cardiac standpoint. He demonstrated generalized weakness. Physical therapy was consulted and it was recommended that he be discharged with continued PT services. Initially, he wanted to be discharged to inpatient rehab facility; however, this was declined by his insurance. He agreed for [facility] facility and, with the assistance of case management, this was arranged. Incidentally, his left lower extremity Doppler ultrasound revealed, "nonocclusive acute thrombus left popliteal vein." He was started on apixaban for this finding. His CT chest angiogram revealed, "no evidence for pulmonary embolus. No aortic dissection or dilatation. Enlarged pulmonary arteries with findings indicating right heart strain. Enlarged heart with marked congestive heart failure. Bilateral infiltrate and atelectatic change versus pulmonary congestion." Pulmonology was consulted and he was evaluated by Dr. Kitchen. He mentions that the right heart strain is secondary to chronic untreated pulmonary hypertension. Dr. Kitchen has cleared him to be discharged to a SNF with sildenafil 20 mg three times daily. He will follow-up with him in the outpatient for further management of his pulmonary hypertension. Also, his CT chest was notable for an enlarged aorticopulmonary lymph node (3.7 cm), moderate-large pleural effusions, and a left kidney cyst. He was counseled that these findings can all be a sign of malignancy. He was advised to follow-up with his PCP and with Dr. Kitchen for further evaluation. He verbalized understanding and agreed to make this appointment. On 07/06/2022, he was seen on rounds and deemed medically stable for discharge. He was given the opportunity to ask questions and reported no further questions. Furthermore, all questions were answered to the best of my ability. A copy of this discharge summary will be sent to the above providers to facilitate continuity of care. Today, I personally spent 35 minutes on his case, of which greater than 50% of the time was spent in patient education, counseling, and coordination of care as described above. Vital Signs/Physical Exam: Temp Pulse Resp BP Pulse Ox 97.2 F 75 16 140/94 H 98 07/06/22 08:00 07/06/22 09:45 07/06/22 08:00 07/06/22 09:45 07/06/22 08:00 Laboratory Data at Discharge: WBC 5.90 thou/uL (4.3-10.9) 06/29/22 06:16 Hgb 12.8 g/dL (13.6-17.9) L 06/29/22 06:16 Hct 39.8 % (39.6-49.0) 06/29/22 06:16 Plt Count 174 thou/uL (152-406) 06/29/22 06:16 Sodium 134 mEq/L (136-145) L 07/04/22 02:33 Potassium 4.0 mEq/L (3.5-5.1) 07/04/22 02:33 BUN 42 mg/dL (7-18) H 07/04/22 02:33 Creatinine 0.68 mg/dL (0.70-1.30) L 07/04/22 02:33 Glucose 86 mg/dL (74-106) 07/04/22 02:33 Uric Acid 5.8 mg/dL (3.5-7.2) 07/03/22 03:05 Phosphorus 3.4 mg/dL (2.5-4.9) 07/02/22 05:32 Magnesium 1.8 mg/dL (1.6-2.4) 07/02/22 05:32 Total Bilirubin 0.9 mg/dL (0.2-1.0) 06/29/22 06:16 AST 7 U/L (15-37) L 06/29/22 06:16 ALT 12 U/L (16-61) L 06/29/22 06:16 Alkaline Phosphatase 65 U/L (45-117) 06/29/22 06:16 Triglycerides 69 mg/dL (<150) 06/28/22 02:24 Cholesterol 124 mg/dL (<200) 06/28/22 02:24 HDL Cholesterol 63 mg/dL (40-60) H 06/28/22 02:24 Cholesterol/HDL Ratio 1.97 06/28/22 02:24 Home Medications: Allopurinol 100 mg PO BID 06/28/22 Aspirin [Low Dose Aspirin EC] 81 mg PO DAILY 06/28/22 Brimonidine Tartrate [Lumify] 1 gtt EACH EYE BID 06/28/22 Carboxymethylcellulos/Glycerin [Refresh Optive Eye Drops] 1 gtt EACH EYE Q2HP PRN 06/28/22 Cholestyramine/Aspartame [Cholestyramine Light Packet] 2 packet PO BEDTIME 06/28/22 Cyclosporine [Restasis Multidose] 1 gtt EACH EYE BID 06/28/22 Digoxin [Lanoxin*] 0.125 mg PO DAILY 06/28/22 Duloxetine HCl [Cymbalta] 30 mg PO DAILY 06/28/22 Labetalol HCl [Trandate] 200 mg PO BID 06/28/22 Montelukast Sodium [Singulair] 10 mg PO DAILY 06/28/22 Potassium Chloride 10 meq PO DAILY 06/28/22 Primidone [Mysoline *] 50 mg PO TID 06/28/22 Rosuvastatin [Crestor*] 10 mg PO DAILY 06/28/22 Spironolactone 50 mg PO DAILY 06/28/22 Tacrolimus [Prograf] 3 mg PO BID 06/28/22 Tafluprost/Pf [Zioptan 0.0015% Eye Drop] 1 gtt EACH EYE BID 06/28/22 mycophenolate mofetiL [Mycophenolate Mofetil] 1,000 mg PO BID 06/28/22 Apixaban [Eliquis] 5 mg PO BID 07/06/22 Furosemide [Lasix*] 40 mg PO BIDL tab 07/06/22 Pantoprazole [Protonix Tab*] 40 mg PO ACB tab 07/06/22 Sildenafil Citrate [Revatio*] 20 mg PO TID 07/06/22 acetaZOLAMIDE [Diamox*] 250 mg PO DAILY tab 07/06/22 predniSONE [Prednisone*] 5 mg PO DAILY tab 07/06/22 Physician Discharge Instructions: 1. Please call and schedule a follow-up appointment with your PCP (Dr. Almendarez) in 3-5 days As we discussed, you have an enlarged lymph node in your chest, fluid around your lungs, and a spot on your kidney. These can all be concerning for the possibility of cancer. Please follow-up with your PCP for further evaluation 2. Please call and schedule a follow-up appointment with Pulmonology (Dr. Kitchen) in 5-7 days 3. Please call and schedule a follow-up appointment with Cardiology (Dr. Michel) in 5-7 days Followup: Jimmy Almendarez MD [Primary Care Provider] - Dov Michel MD [ACTIVE - CAN ADMIT] - Justin Kitchen MD [ACTIVE - CAN ADMIT] - Time spent managing pt's care (in minutes): 35
--- NOTE | 2022-07-06 15:10 | RAD REPORT ---
EXAM DESCRIPTION: RAD - Chest Pa And Lat (2 Views) - 07/06/2022 3:05 pm CLINICAL HISTORY: follow up Chest pain. COMPARISON: Chest Single View dated 06/29/2022; Chest Single View dated 06/27/2022; Chest Single View da romain 01/12/2022; Chest Single View dated 01/10/2022; Chest For Pe Angio dated 06/27/2022 FINDINGS: Since the comparative study, there has been significant improvement lung aeration. Small b ilateral pleural effusions process with probable atelectasis in the right lung base. The heart is mod erately enlarged. No displaced fractures. IMPRESSION: Moderate improvement in lung aeration noted since the comparative study.
[2022-07-06 16:09] LABS: SARS-CoV-2 Antigen Rapid Res Negative (Negative)
[2022-07-06 17:54] VITALS: BP 113/58; TEMP 97
== END 2022-07-06 18:27 | DRG 291 ==
LOC: ER 15:24 → ERHOLD 19:21 → 2ND 20:26 → OBSVTOIN 06-29 13:52
PROVIDERS: ADMIT Hospitalist; ATTEND Internal Medicine
DX: I11.0 Hypertensive heart disease with heart failure (principal); I50.33 Acute on chronic diastolic (congestive) heart failure; I82.432 Acute embolism and thrombosis of left popliteal vein; Z94.0 Kidney transplant status; J44.1 Chronic obstructive pulmonary disease with (acute) exacerbation; E87.1 Hypo-osmolality and hyponatremia; E87.3 Alkalosis; E78.5 Hyperlipidemia, unspecified; I35.0 Nonrheumatic aortic (valve) stenosis; K21.9 Gastro-esophageal reflux disease without esophagitis; E11.65 Type 2 diabetes mellitus with hyperglycemia; D64.9 Anemia, unspecified; I48.0 Paroxysmal atrial fibrillation; M10.9 Gout, unspecified; G47.33 Obstructive sleep apnea (adult) (pediatric); E87.6 Hypokalemia; I70.0 Atherosclerosis of aorta; N28.1 Cyst of kidney, acquired; I27.29 Other secondary pulmonary hypertension; I25.10 Atherosclerotic heart disease of native coronary artery without angina pectoris; R80.9 Proteinuria, unspecified; Z95.5 Presence of coronary angioplasty implant and graft; Z88.5 Allergy status to narcotic agent; Z79.4 Long term (current) use of insulin; Z88.0 Allergy status to penicillin; Z88.8 Allergy status to other drugs, medicaments and biological substances; Z99.81 Dependence on supplemental oxygen; Z79.02 Long term (current) use of antithrombotics/antiplatelets; Z90.49 Acquired absence of other specified parts of digestive tract; Z79.52 Long term (current) use of systemic steroids; Z79.82 Long term (current) use of aspirin; Z95.818 Presence of other cardiac implants and grafts; Z96.651 Presence of right artificial knee joint; Z96.641 Presence of right artificial hip joint; Z79.899 Other long term (current) drug therapy; Z87.891 Personal history of nicotine dependence; Z20.822 Contact with and (suspected) exposure to COVID-19
CPT/HCPCS: 36415; 71045; 71046; 71275; 80048; 80053; 80061; 81001; 82043; 82570; 82607; 82947; 83036; 83605; 83735; 83880; 84100; 84132; 84156; 84439; 84443; 84484; 84550; 85025; 87040; 87811; 93005; 93306; 93971; 94640; 94760; 96374; 97110; 97116; 97161; 97165; 97530; 99285; G0378; J1650; J1815; J1940; J2930; J3475; J7512; J7605; J7613; J8540; P9047; Q9967

== ENCOUNTER 2022-08-21 12:44 | Inpatient (IN) | payer OTHER ==
[2022-08-21 13:03] LABS: Arterial Blood Carboxyhemoglob 2.4 % (0-1.5); Blood Gas Oxyhemoglobin 90.9 % (94-97); Blood O2 Saturation 94.5 % (92-98.5)
[2022-08-21] MEDS ORDERED: CEFEPIME 2 GM VIAL ONE (13:20)
[2022-08-21] MEDS ORDERED: ACETAMINOPHEN 500 MG TAB ONE (13:20)
[2022-08-21] MEDS ORDERED: VANCOMYCIN 1 GM/VIAL ONE (13:20)
[2022-08-21 13:21] LABS: Absolute Lymphocytes (CBC) 0.2 K/uL (0.7-4.9); Hematocrit 41.8 % (39.6-49.0); Lymphocytes % 1.3 % (15.3-44.8); MPV 9.3 fL (7.6-11.3); RBC Red Blood Cell Count 4.75 M/uL (4.33-5.43)
[2022-08-21] MEDS ORDERED: NA CHLORIDE 0.9% 100 ML ONE (13:21)
[2022-08-21] MEDS ORDERED: NA CHLORIDE 0.9% 500 ML ONE (13:21)
[2022-08-21] MEDS ORDERED: NA CHLORIDE 0.9% 250 ML ONE (13:21)
[2022-08-21 13:57] LABS: Albumin 3.2 g/dL (3.4-5.0); Bilirubin Total 1.2 mg/dL (0.2-1.0); Potassium 4.6 mEq/L (3.5-5.1); Troponin High Sensitivity 41.6 pg/mL (<58.9)
[2022-08-21 14:24] LABS: Protime INR 1.34
--- NOTE | 2022-08-21 14:40 | RAD REPORT ---
EXAM DESCRIPTION: RADChest Single View08/21/2022 2:07 pm CLINICAL HISTORY: DYSPNEA COMPARISON: Chest Pa And Lat (2 Views) dated 07/06/2022; Chest Single View dated 06/29/2022; Chest Sing le View dated 06/27/2022; Chest Single View dated 01/12/2022 TECHNIQUE: Portable AP view of the chest. FINDINGS: Developing patchy right lung airspace opacities more pronounced at the base. Central inter stitial prominence bilaterally. No pneumothorax or effusion. Moderate cardiomegaly. Mediastinal cont ours are unremarkable. IMPRESSION: Developing right lung airspace opacities and central interstitial prominence. Findings r aise concern for pneumonia. Underlying central congestion/CHF may be present.
--- NOTE | 2022-08-21 15:51 | EDPHYS ---
Physician Documentation [facility] Name: Yunior Lewis Age: 77 yrs Sex: Male : 1945 Arrival Date: 08/21/2022 Time: 12:44 Bed 15 Private MD: ED Physician Livan Onofre HPI: 08/21 17:13 This 77 yrs old Male presents to ER via EMS with complaints of Shortness Of Breath. rt 17:13 Patient presents to the ED with dyspnea, reported hypoxia 85% on 3 L. Patient was rt brought to the ED for further evaluation. History is limited due to patient with respiratory distress. Denies other acute complaints at this time. Symptoms are severe in severity, no other aggravating alleviating factors.. Historical: - Allergies: 13:03 Demerol; eh3 13:03 NSAIDS; eh3 13:03 PENICILLINS; eh3 13:03 Warfarin; eh3 - PMHx: 13:03 CHF; COPD; Diabetes - IDDM; gastritis; Heart Murmur; Hyperlipidemia; Hypertension; eh3 Sleep Apnea; - PSHx: 13:03 kidney transplant; watchman; eh3 - Immunization history:: Adult Immunizations up to date. - Social history:: Smoking status: unknown. - Family history:: not pertinent. ROS: 17:13 Cardiovascular: Negative for chest pain, palpitations, and edema, Abdomen/GI: Negative rt for abdominal pain, nausea, vomiting, diarrhea, and constipation, MS/Extremity: Negative for injury and deformity, Skin: Negative for injury, rash, and discoloration, Neuro: Negative for headache, weakness, numbness, tingling, and seizure, Psych: Negative for depression, anxiety, suicide ideation, homicidal ideation, and hallucinations. 17:13 Constitutional: Positive for fever, malaise. 17:13 Respiratory: Positive for cough, shortness of breath. Exam: 17:13 Constitutional: This is a well developed, well nourished patient who is awake, alert, rt and in no acute distress. Head/Face: Normocephalic, atraumatic. Chest/axilla: Normal chest wall appearance and motion. Nontender with no deformity. No lesions are appreciated. Cardiovascular: Regular rate and rhythm with a normal S1 and S2. No gallops, murmurs, or rubs. Normal PMI, no JVD. No pulse deficits. Abdomen/GI: Soft, non-tender, with normal bowel sounds. No distension or tympany. No guarding or rebound. No evidence of tenderness throughout. Skin: Warm, dry with normal turgor. Normal color with no rashes, no lesions, and no evidence of cellulitis. MS/ Extremity: Pulses equal, no cyanosis. Neurovascular intact. Full, normal range of motion. Neuro: Awake and alert, GCS 15, oriented to person, place, time, and situation. Cranial nerves II-XII grossly intact. Motor strength 5/5 in all extremities. Sensory grossly intact. Cerebellar exam normal. Normal gait. Psych: Awake, alert, with orientation to person, place and time. Behavior, mood, and affect are within normal limits. 17:13 ECG was reviewed by the Attending Physician. 17:13 Respiratory: Respiratory distress noted, diminished breath sounds diffusely, crackles heard on the right lung gonzalez, accessory muscle usage noted.. Vital Signs: 12:54 BP 166 / 128; Pulse 123; Resp 30; Temp 102.6(A); Pulse Ox 97% on 15 lpm Non-rebreather eh3 mask; 13:30 BP 127 / 70; Pulse 115; Resp 22; Pulse Ox 95% on BiPAP; eh3 14:00 BP 107 / 65; Pulse 108; Resp 29; Pulse Ox 99% on BiPAP; eh3 14:30 Temp 97.9(IR); eh3 14:30 BP 107 / 54; Pulse 107; Resp 30; Pulse Ox 95% on BiPAP; eh3 15:00 BP 99 / 56; Pulse 103; Resp 33; Pulse Ox 95% on BiPAP; eh3 15:30 BP 105 / 62; Pulse 100; Resp 34; Pulse Ox 98% on BiPAP; eh3 16:00 BP 113 / 67; Pulse 96; Resp 34; Pulse Ox 100% on BiPAP; eh3 16:30 BP 135 / 78; Pulse 99; Resp 22; Temp 97.9(IR); Pulse Ox 99% on BiPAP; eh3 17:00 BP 131 / 81; Pulse 96; Resp 25; Pulse Ox 100% on BiPAP; eh3 17:30 BP 133 / 88; Pulse 108; Resp 30; Pulse Ox 97% on BiPAP; eh3 18:00 BP 150 / 94; Pulse 104; Resp 26; Pulse Ox 97% on BiPAP; eh3 18:30 BP 156 / 84; Pulse 110; Resp 28; Temp 98.8(IR); Pulse Ox 98% on BiPAP; eh3 19:00 BP 159 / 85; Pulse 107; Resp 22; Pulse Ox 97% on BiPAP; eh3 19:30 BP 143 / 99; Pulse 118; Resp 24; Pulse Ox 96% on BiPAP; eh3 MDM: 12:54 Patient medically screened. rt 17:13 Differential diagnosis: Pneumonia, sepsis, pneumothorax, congestive heart failure, rt acute coronary syndrome. Data reviewed: vital signs, nurses notes, lab test result(s), EKG, radiologic studies. Consideration of Admission/Observation Patient was admitted/placed on observation. Management of patient was discussed with the following: Hospitalist: Agrees to admit. I considered the following discharge prescriptions or medication management in the emergency department Medications were administered in the Emergency Department. See MAR. Test considered but Not performed: CT: Low suspicion for pulmonary embolism, CT angiogram not indicated. Historians other than the Patient:. External Records Reviewed:. Care significantly affected by the following chronic conditions: Congestive Heart Failure, Chronic Obstructive Pulmonary Disease. Counseling: I had a detailed discussion with the patient and/or guardian regarding: the historical points, exam findings, and any diagnostic results supporting the discharge/admit diagnosis, lab results, radiology results, the need for further work-up and treatment in the hospital. ED course: Patient is septic, however, he has fragile congestive heart failure, appears to be small volume overloaded. We will give 500 cc bolus, believe that further hydration is likely to worsen the patient's respiratory status.. 08/21 12:56 Order name: Blood Culture Adult (2) rt 08/21 12:56 Order name: CBC with Diff; Complete Time: 14:31 rt 08/21 12:56 Order name: CMP; Complete Time: 14:31 rt 08/21 12:56 Order name: Lactate w/ 2H reflex if indic.; Complete Time: 14:31 rt 08/21 12:56 Order name: Protime (+inr); Complete Time: 14:31 rt 08/21 12:56 Order name: Ptt, Activated; Complete Time: 14:31 rt 08/21 12:56 Order name: Urinalysis w/ reflexes rt 08/21 12:56 Order name: ABG; Complete Time: 14:31 rt 08/21 12:56 Order name: Troponin HS; Complete Time: 14:31 rt 08/21 17:02 Order name: NT PRO-BNP [facility] 08/21 17:38 Order name: Phosphorus EDMS 08/21 17:38 Order name: T4 Free EDMS 08/21 17:38 Order name: Thyroid Stimulating Hormone EDMS 08/21 17:38 Order name: Urinalysis w/ reflexes EDMS 08/21 17:38 Order name: Basic Metabolic Panel EDMS 08/21 17:38 Order name: Basic Metabolic Panel EDMS 08/21 17:38 Order name: CBC with Automated Diff EDMS 08/21 17:38 Order name: CBC with Automated Diff EDMS 08/21 17:38 Order name: Lipid Profile EDMS 08/21 17:38 Order name: Lipid Profile [facility] 08/21 17:38 Order name: NT PRO-BNP [facility] 08/21 17:38 Order name: NT PRO-BNP [facility] 08/21 12:56 Order name: Chest Single View XRAY; Complete Time: 15:16 rt 08/21 12:56 Order name: BIPAP rt 08/21 12:56 Order name: EKG; Complete Time: 12:57 rt 08/21 17:38 Order name: 60g Consistent Carbohydrate (ADA 1800) [facility] 08/21 17:40 Order name: 60g Consistent Carbohydrate (ADA 1800) [facility] 08/21 12:56 Order name: Accucheck; Complete Time: 13:07 rt 08/21 12:56 Order name: Cardiac monitoring; Complete Time: 13:06 rt 08/21 12:56 Order name: EKG - Nurse/Tech; Complete Time: 13:07 rt 08/21 12:56 Order name: IV Saline Lock - Large Bore; Complete Time: 13:06 rt 08/21 12:56 Order name: Labs collected and sent; Complete Time: 13:06 rt 08/21 12:56 Order name: O2 Per Protocol; Complete Time: 13:06 rt 08/21 12:56 Order name: O2 Sat Monitoring; Complete Time: 13:06 rt 08/21 12:56 Order name: Vital Signs; Complete Time: 13:06 rt 08/21 12:56 Order name: IV Saline Lock; Complete Time: 13:06 rt EC:13 Rate is 117 beats/min. Rhythm is irregularly irregular, A fib with Right bundle branch rt block, Rapid ventricular response. QRS Mcwilliams is Normal. QT interval is normal. No Q waves. Interpreted by me. Administered Medications: 13:15 Drug: Acetaminophen PO 1000 mg Route: PO; 3 14:30 Follow up: Temp 97.9 Infrared; Response: Temperature is decreased [facility] 13:15 Drug: NS 0.9% IV 500 ml Route: IV; Rate: bolus; Site: right antecubital; 3 14:15 Follow up: IV Status: Completed infusion; IV Intake: 500ml [facility] 13:15 Drug: Cefepime IVPB 2 grams Route: IVPB; Rate: 200 ml/hr; Infused Over: 30 mins; Site: [facility] right antecubital; 13:45 Follow up: Response: No adverse reaction; IV Status: Completed infusion; IV Intake: eh3 100ml 13:45 Drug: vancoMYCIN IVPB 1 grams Route: IVPB; Infused Over: 2 hrs; Site: right antecubital;[facility] 15:45 Follow up: Response: No adverse reaction; IV Status: Completed infusion; IV Intake: eh3 250ml Disposition: 18:18 Critical Care:. rt Disposition Summary: 08/21/22 15:51 Hospitalization Ordered Hospitalization Status: Inpatient Admission rt Provider: Jesus Vinson rt Condition: Guarded rt Problem: new rt Symptoms: have improved rt Bed/Room Type: Standard rt Location: Telemetry/MedSurg (Inpatient)(08/21/22 17:51) kb3 Room Assignment: [facility](08/21/22 17:51) kb3 Diagnosis - Pneumonia, unspecified organism rt - Severe sepsis without septic shock rt - Acute respiratory failure with hypoxia rt Forms: - Medication Reconciliation Form rt - SBAR form rt Critical care time excluding procedures: 18:18 Critical care time: Bedside Care: 30 minutes, Consultation: 10 minutes. Total time: 40 rt minutes Signatures: Dispatcher [employer] Dilcia Lwo RN RN eh3 Rebecca Magaña RN RN kb3 Livan Onofre MD MD rt Corrections: (The following items were deleted from the chart) 17:51 15:51 Intensive Care Unit rt kb3 17:51 15:51 rt kb3
--- NOTE | 2022-08-21 15:51 | ER ---
Nurse's Notes [facility] Name: Yunior Lewis Age: 77 yrs Sex: Male : 1945 Arrival Date: 08/21/2022 Time: 12:44 Bed 15 Private MD: Diagnosis: Pneumonia, unspecified organism;Severe sepsis without septic shock;Acute respiratory failure with hypoxia Presentation: 08/21 12:54 Chief complaint: EMS states: SOB and fever for 3 days, EMS toned out by unknown 3rd 3 [employer]. Coronavirus screen: Vaccine status: Patient reports receiving the 2nd dose of the covid vaccine. Ebola Screen: No symptoms or risks identified at this time. Initial Sepsis Screen: Does the patient meet any 2 criteria? RR > 20 per min. Temp <36.0*C (96.8*F)) or > 38.3*C (100.9*F). HR > 90 bpm. Yes Does the patient have a suspected source of infection? Yes: Productive cough/pneumonia. Risk Assessment: Do you want to hurt yourself or someone else? Patient reports no desire to harm self or others. Onset of symptoms was August 21, 2022. 12:54 Method Of Arrival: EMS: [facility] ER3 12:54 Acuity: JAQUAN 2 eh3 Triage Assessment: 12:54 General: Appears distressed, uncomfortable, Behavior is cooperative. Pain: Complains of eh3 pain in chest. Neuro: Level of Consciousness is awake, alert, obeys commands, Oriented to unable to access at this time due to nonrebreather mask. Cardiovascular: Capillary refill < 3 seconds Patient's skin is warm and dry. Respiratory: Reports shortness of breath at rest Airway is patent Respiratory effort is even, labored, Respiratory pattern is regular, symmetrical, Breath sounds are diminished in left lower lobe Onset: The symptoms/episode began/occurred 3 days ago, the patient has severe shortness of breath. GI: Abdomen is round non-distended. 15:50 Derm: Decubitus located on sacrum approximately 2.6 cm to 7.5 cm is stage I is draining eh3 none noted. Historical: - Allergies: 13:03 Demerol; eh3 13:03 NSAIDS; eh3 13:03 PENICILLINS; eh3 13:03 Warfarin; eh3 - PMHx: 13:03 CHF; COPD; Diabetes - IDDM; gastritis; Heart Murmur; Hyperlipidemia; Hypertension; eh3 Sleep Apnea; - PSHx: 13:03 kidney transplant; watchman; eh3 - Immunization history:: Adult Immunizations up to date. - Social history:: Smoking status: unknown. - Family history:: not pertinent. Screenin:03 [facility] ED Fall Risk Assessment (Adult) Score/Fall Risk Level 0 - 2 = Low Risk. Abuse eh3 screen: Denies threats or abuse. Denies injuries from another. Nutritional screening: No deficits noted. Tuberculosis screening: No symptoms or risk factors identified. Assessment: 12:54 Cardiovascular: Rhythm is irregular. eh3 13:30 Reassessment: Patient appears in no apparent distress at this time. Patient and/or 3 family updated on plan of care and expected duration. Pain level reassessed. Pt is alert, given water, tolerating BIPAP well. 14:30 Reassessment: Patient appears in no apparent distress at this time. Patient and/or 3 family updated on plan of care and expected duration. Pain level reassessed. Pt repositioned to left side. Pt is alert, given water, tolerating BIPAP well, skin warm/dry/pink. 15:30 Reassessment: Patient appears in no apparent distress at this time. Patient and/or 3 family updated on plan of care and expected duration. Pain level reassessed. Pt is alert, given water, tolerating BIPAP well, skin warm/dry/pink. 15:50 Reassessment: Pt daughter at bedside, daughter asked why pt is receiving antibiotics. eh3 Daughter verbalized understanding that antibiotics are being given due to high WBC count and suspected pneumonia. Daughter asked if pt has any "kidney ulcers." Informed daughter that I am not aware of any kidney ulcers. Daughter asked if anyone has inspected the pt's skin. Informed daughter I have not completed a head to toe assessment of the pt's skin at this time. Charge nurse Haley inspected pt's skin and found erythematous area approximately 4cm in diameter at sacrum. Dr. Onofre notified of sacrum wound and ordered PUP dressing. No PUP dressings in ED, requested dressings from clay house worker Jim. Informed pt daughter that wound dressing has been requested and will be applied when delivered by clay house worker. 16:30 Reassessment: Patient appears in no apparent distress at this time. Patient and/or eh3 family updated on plan of care and expected duration. Pain level reassessed. Pt repositioned to right side. Pt is alert, given water, tolerating BIPAP well, skin warm/dry/pink. 17:30 Reassessment: Patient appears in no apparent distress at this time. Patient and/or eh3 family updated on plan of care and expected duration. Pain level reassessed. Pt is alert, given water, tolerating BIPAP well, skin warm/dry/pink. 18:30 Reassessment: Patient appears in no apparent distress at this time. Patient and/or eh3 family updated on plan of care and expected duration. Pain level reassessed. Pt repositioned to left side. Pt is alert, given water, tolerating BIPAP well, skin warm/dry/pink. 18:43 Reassessment: Pt daughter states that pt said he did not receive any antibiotics. Pt eh3 assured that one dose of Cefepime and one dose of Vancomycin were administered intravenously earlier today. Pt verbalized understanding. Daughter asked, "Can you speak to me instead of him? I am his daughter and power of attorney recruiter," Explained to pt daughter that as her father's nurse I will speak to him directly about his care. Daughter stated she wants her father transferred to [facility]. Assured daughter that I will notify the provider that she wants her father transferred. Daughter stated, "You are the worst nurse I have ever had in this hospital." Notified charge nurse Haley De Leon at bedside speaking with pt and daughter. 19:30 Reassessment: Patient appears in no apparent distress at this time. Patient and/or eh3 family updated on plan of care and expected duration. Pain level reassessed. Pt is alert, given water, tolerating BIPAP well, skin warm/dry/pink. Vital Signs: 12:54 BP 166 / 128; Pulse 123; Resp 30; Temp 102.6(A); Pulse Ox 97% on 15 lpm Non-rebreather 3 mask; 13:30 BP 127 / 70; Pulse 115; Resp 22; Pulse Ox 95% on BiPAP; 3 14:00 BP 107 / 65; Pulse 108; Resp 29; Pulse Ox 99% on BiPAP; 3 14:30 Temp 97.9(IR); eh3 14:30 BP 107 / 54; Pulse 107; Resp 30; Pulse Ox 95% on BiPAP; eh3 15:00 BP 99 / 56; Pulse 103; Resp 33; Pulse Ox 95% on BiPAP; eh3 15:30 BP 105 / 62; Pulse 100; Resp 34; Pulse Ox 98% on BiPAP; eh3 16:00 BP 113 / 67; Pulse 96; Resp 34; Pulse Ox 100% on BiPAP; eh3 16:30 BP 135 / 78; Pulse 99; Resp 22; Temp 97.9(IR); Pulse Ox 99% on BiPAP; eh3 17:00 BP 131 / 81; Pulse 96; Resp 25; Pulse Ox 100% on BiPAP; eh3 17:30 BP 133 / 88; Pulse 108; Resp 30; Pulse Ox 97% on BiPAP; eh3 18:00 BP 150 / 94; Pulse 104; Resp 26; Pulse Ox 97% on BiPAP; eh3 18:30 BP 156 / 84; Pulse 110; Resp 28; Temp 98.8(IR); Pulse Ox 98% on BiPAP; eh3 19:00 BP 159 / 85; Pulse 107; Resp 22; Pulse Ox 97% on BiPAP; eh3 19:30 BP 143 / 99; Pulse 118; Resp 24; Pulse Ox 96% on BiPAP; eh3 ED Course: 12:54 Patient arrived in ED. eh3 12:54 Livan Onofre MD is Attending Physician. rt 12:54 Arm band placed on. eh3 13:00 First set of blood cultures drawn by me, Second set of blood cultures drawn by me. ds4 Inserted saline lock: 20 gauge in right forearm, using aseptic technique. Blood collected. 13:03 Triage completed. eh3 13:03 Patient has correct armband on for positive identification. Bed in low position. Call [facility] light in reach. Side rails up X2. Client placed on continuous cardiac and pulse oximetry monitoring. NIBP monitoring applied. 13:06 Dilcia Burnett, BRENDA is Primary Nurse. eh3 14:09 Chest Single View XRAY In Process Unspecified. EDMS 15:49 Jesus Vinson is Hospitalizing Provider. rt 19:05 No provider procedures requiring assistance completed. Patient admitted, IV remains in eh3 place. Administered Medications: 13:15 Drug: Acetaminophen PO 1000 mg Route: PO; eh3 14:30 Follow up: Temp 97.9 Infrared; Response: Temperature is decreased 3 13:15 Drug: NS 0.9% IV 500 ml Route: IV; Rate: bolus; Site: right antecubital; eh3 14:15 Follow up: IV Status: Completed infusion; IV Intake: 500ml eh3 13:15 Drug: Cefepime IVPB 2 grams Route: IVPB; Rate: 200 ml/hr; Infused Over: 30 mins; Site: eh3 right antecubital; 13:45 Follow up: Response: No adverse reaction; IV Status: Completed infusion; IV Intake: eh3 100ml 13:45 Drug: vancoMYCIN IVPB 1 grams Route: IVPB; Infused Over: 2 hrs; Site: right antecubital;eh3 15:45 Follow up: Response: No adverse reaction; IV Status: Completed infusion; IV Intake: eh3 250ml Medication: 19:05 VIS not applicable for this client. eh3 Intake: 13:45 IV: 100ml; Total: 100ml. eh3 14:15 IV: 500ml; Total: 600ml. eh3 15:45 IV: 250ml; Total: 850ml. 3 Outcome: 15:51 Decision to Hospitalize by Provider. rt 19:40 Admitted to Tele accompanied by tech, via stretcher, room 423, with oxygen, Report 3 called to R[facility] 19:40 Condition: stable 19:40 Instructed on the need for admit. 19:40 Patient left the ED. 3 Signatures: Dispatcher [employer] EDMS Jason Burns ds4 Dilcia Burnett RN RN eh3 Livan Onofre MD MD rt Corrections: (The following items were deleted from the chart) 21:39 12:54 GI: Abdomen is round non-distended, 3 3 21:54 13:30 Reassessment: Patient appears in no apparent distress at this time. Patient eh3 and/or family updated on plan of care and expected duration. Pain level reassessed. Patient is alert, oriented x 3, equal unlabored respirations, skin warm/dry/pink. 3 21:54 14:30 Reassessment: Patient appears in no apparent distress at this time. Patient eh3 and/or family updated on plan of care and expected duration. Pain level reassessed. Patient is alert, oriented x 3, equal unlabored respirations, skin warm/dry/pink. 3 21:54 15:30 Reassessment: Patient appears in no apparent distress at this time. Patient eh3 and/or family updated on plan of care and expected duration. Pain level reassessed. Patient is alert, oriented x 3, equal unlabored respirations, skin warm/dry/pink. 3 21:54 16:30 Reassessment: Patient appears in no apparent distress at this time. Patient eh3 and/or family updated on plan of care and expected duration. Pain level reassessed. Patient is alert, oriented x 3, equal unlabored respirations, skin warm/dry/pink. 3 21:54 17:30 Reassessment: Patient appears in no apparent distress at this time. Patient eh3 and/or family updated on plan of care and expected duration. Pain level reassessed. Patient is alert, oriented x 3, equal unlabored respirations, skin warm/dry/pink. 3 21:54 18:30 Reassessment: Patient appears in no apparent distress at this time. Patient eh3 and/or family updated on plan of care and expected duration. Pain level reassessed. Patient is alert, oriented x 3, equal unlabored respirations, skin warm/dry/pink. [facility] 21:54 15:50 Reassessment: Pt daughter at bedside, daughter asked why pt is receiving 3 antibiotics. Daughter verbalized understanding that antibiotics are being given due to high WBC count and suspected pneumonia 3 21:54 19:30 Reassessment: Patient appears in no apparent distress at this time. Patient eh3 and/or family updated on plan of care and expected duration. Pain level reassessed. Patient is alert, oriented x 3, equal unlabored respirations, skin warm/dry/pink. [facility]
[2022-08-21] MEDS ORDERED: CYCLOBENZAPRINE 10 MG TAB ONE (16:18)
[2022-08-21] MEDS ORDERED: ACETAMINOPHEN 325 MG TABLET PO PRN (17:25)
[2022-08-21] MEDS ORDERED: HYDROCODONE/APAP 5/325 MG TAB PO PRN (17:25)
[2022-08-21] MEDS ORDERED: LABETALOL 20 MG/4ML SYRINGE IV PRN (17:30)
[2022-08-21] MEDS ORDERED: ONDANSETRON 4 MG/2 ML VIAL IV PRN (17:35)
--- NOTE | 2022-08-21 17:40 | P.HP ---
Certification for Inpatient Patient admitted to: Inpatient With expected LOS: >2 Midnights Patient will require the following post-hospital care: None Practitioner: I am a practitioner with admitting privileges, knowledge of patient current condition, hospital course, and medical plan of care. Services: Services provided to patient in accordance with Admission requirements found in Title 42 Section 412.3 of the Code of Federal Regulations Patient History Date of Service: 08/21/22 Reason for admission: SOB, Fatigue and weakness History of Present Illness: Patient is a 77-year-old male with a past medical history significant for DM 2, HLD, hypertension, sleep apnea, atrial fibrillation s/p watchman, aortic stenosis s/p TAVR, kidney transplant, hypertension, chronic diastolic CHF, and COPD who presents with complaint of generalized weakness, fatigue, shortness of breath that has been ongoing for the past 3 days. Patient reported that he has had rhinorrhea for the past 3 weeks. Patient also reports upper quadrant pain rated as 3/10 in severity and described as cramping in quality. Patient reported associated signs and symptoms of fever. Patient denies any other signs and symptoms. Symptoms are aggravated or relieved by nothing. Of note, family reported that patient's O2 sat was 85% on 3 L/min. Patient was brought to the ospital for medical evaluation. Allergies NSAIDS (Non-Steroidal Anti-Inflamma Allergy (Verified 02/02/21 09:06) stomach pains Penicillins Allergy (Verified 02/02/21 09:06) Itching/Hives/Rash aspirin Adverse Reaction (Verified 02/02/21 09:06) Rash warfarin Adverse Reaction (Verified 06/27/22 20:52) Rash Home Medications: Allopurinol 100 mg PO BID 06/28/22 Aspirin [Low Dose Aspirin EC] 81 mg PO DAILY 06/28/22 Brimonidine Tartrate [Lumify] 1 gtt EACH EYE BID 06/28/22 Carboxymethylcellulos/Glycerin [Refresh Optive Eye Drops] 1 gtt EACH EYE Q2HP PRN 06/28/22 Cholestyramine/Aspartame [Cholestyramine Light Packet] 2 packet PO BEDTIME 06/28/22 Cyclosporine [Restasis Multidose] 1 gtt EACH EYE BID 06/28/22 Digoxin [Lanoxin*] 0.125 mg PO DAILY 06/28/22 Duloxetine HCl [Cymbalta] 30 mg PO DAILY 06/28/22 Labetalol HCl [Trandate] 200 mg PO BID 06/28/22 Montelukast Sodium [Singulair] 10 mg PO DAILY 06/28/22 Potassium Chloride 10 meq PO DAILY 06/28/22 Primidone [Mysoline *] 50 mg PO TID 06/28/22 Rosuvastatin [Crestor*] 10 mg PO DAILY 06/28/22 Spironolactone 50 mg PO DAILY 06/28/22 Tacrolimus [Prograf] 3 mg PO BID 06/28/22 Tafluprost/Pf [Zioptan 0.0015% Eye Drop] 1 gtt EACH EYE BID 06/28/22 mycophenolate mofetiL [Mycophenolate Mofetil] 1,000 mg PO BID 06/28/22 Apixaban [Eliquis] 5 mg PO BID 07/06/22 Furosemide [Lasix*] 40 mg PO BIDL tab 07/06/22 Pantoprazole [Protonix Tab*] 40 mg PO ACB tab 07/06/22 Sildenafil Citrate [Revatio*] 20 mg PO TID 07/06/22 acetaZOLAMIDE [Diamox*] 250 mg PO DAILY tab 07/06/22 predniSONE [Prednisone*] 5 mg PO DAILY tab 07/06/22 - Past Medical/Surgical History Diabetic: Yes -: Diabetes mellitus type 2 -: COPD -: Diastolic CHF -: Atrial fibrillation with history of watchman procedure -: History aortic stenosis status post TAVR -: GERD -: HTN -: Gout -: HLD -: CAD status post stent LAD 2020 -: History of kidney transplant on antirejection medication -: History of kidney transplant on antirejection medication -: R KNEE REPLACEMENT -: KIDNEY TRANSPLANT -: 40% STOMACH REMOVAL -: CARPAL TUNNEL REPAIR -: Rt Hip Replacement -: Skin graft to nose -: Cholecystectomy -: Appendectomy Psychosocial/ Personal History: Patient lives at home - Family History Father -: Heart disease, Hypertension, Diabetes Mother -: Hypertension, Stroke - Social History Smoking Status: Former smoker Alcohol use: Yes CD- Drugs: No Caffeine use: Yes Place of Residence: Home Review of Systems General: Fever, Weakness, Other (Fatigue ) Eyes: Unremarkable ENT: Other ( rhinorrhea ) Respiratory: Shortness of Breath Cardiovascular: Unremarkable Gastrointestinal: Abdominal Pain Genitourinary: Unremarkable Musculoskeletal: Unremarkable Integumentary: Unremarkable Neurological: Weakness Lymphatics: Unremarkable Physical Examination - Vital Signs Pulse: 128 Pulse Ox (%): 99 - Physical Exam General: Alert, In no apparent distress, Oriented x3, Moderate distress HEENT: Atraumatic, PERRLA, Mucous membr. moist/pink, EOMI, Sclerae nonicteric Neck: Supple, 2+ carotid pulse no bruit, No LAD, Without JVD or thyroid abnormality Respiratory: Diminished Cardiovascular: Normal S1 S2, Irregular heart rate/rhythm Capillary refill: <2 Seconds Gastrointestinal: Normal bowel sounds, Soft and benign, No tenderness Musculoskeletal: No clubbing, No swelling, No tenderness Integumentary: No rashes, No breakdown, No significant lesion Neurological: Normal speech, Normal tone, Normal affect Lymphatics: No axilla or inguinal lymphadenopathy - Studies Laboratory Data (last 24 hrs) 08/21/22 13:00: PT 14.7 H, INR 1.34, APTT 29.0 08/21/22 13:00: Sodium 134 L, Potassium 4.6, BUN 19 H, Creatinine 0.70, Glucose 139 H, Total Bilirubin 1.2 H, AST 11 L, ALT 13 L, Alkaline Phosphatase 73 08/21/22 13:00: WBC 16.60 H, Hgb 13.0 L, Hct 41.8, Plt Count 160 Assessment and Plan - Plan --Pneumonia. Chest x-ray indicates "Developing right lung airspace opacities and central interstitial prominence. Findings raise concern for pneumonia. Underlying central congestion/CHF may be present." Patient started on antibiotics and nebulizer treatment with albuterol\\Atrovent. Pulmonology consulted. Patient on BiPAP therapy. Will await further recommendations. --Acute on chronic respiratory failure with hypoxia. Secondary to pneumonia. Continue current treatment regimen. --Acute on chronic COPD exacerbation. Continue current treatment regimen. --Acute on chronic diastolic CHF exacerbation. Continue diuresis with Lasix. Daily weight and strict I/O. --Sepsis POA\\leukocytosis.. Blood cultures pending. Continue antibiotics. -- DM2. BS monitoring with sliding scale insulin. --Atrial fibrillation. Status post Watchman procedure. Continue home medications -- Gout. Continue allopurinol. --Hypertension. Poorly controlled. Continue home medications and labetalol as needed. --GERD. Continue Protonix. --History of kidney transplant. Continue home medications. --Hyperlipidemia. Continue statin. --Pulmonary hypertension. Continue sildenafil. -- Anemia of chronic disease. H&H stable. We will continue to monitor hemoglobin and transfuse if less than 7.0. --DVT prophylaxis with Lovenox subQ. Discharge Plan: Home Plan to discharge in: Greater than 2 days - Advance Directives Does patient have a Living Will: No Does patient have a Durable POA for Healthcare: No - Code Status/Comfort Care Code Status Assessed: Yes Physician Review: Patient Assessed, Agree with Above Assessment and Plan Critical Care: No
[2022-08-21 19:12] LABS: Phosphorus 2.9 mg/dL (2.5-4.9); Thyroid Stimulating Hormone 0.82 uIU/mL (0.358-3.740)
[2022-08-21] MEDS: ALBUTEROL 2.5 MG/3 ML NEB SOL NEB SCH (19:55)
[2022-08-21] MEDS: IPRATROPIUM BROM 0.5MG/2.5ML NEB SCH (19:55)
[2022-08-21] MEDS ORDERED: ENOXAPARIN 40 MG/0.4 ML SQ SCH (20:00)
[2022-08-21 20:20] VITALS: O2SAT 96
--- NOTE | 2022-08-21 20:33 | EKG ---
Test Date: 2022-08-21 Test Time: 13:18:54 Choral Teacher: LEE ANN MEASUREMENT RESULTS: Intervals: Rate: 117 ND: QRSD: 136 QT: 328 QTc: 457 [place]: P: ND: QRS: -87 T: 11 INTERPRETIVE STATEMENTS: Atrial fibrillation Left axis deviation Right bundle branch block Abnormal ECG Compared to ECG 06/27/2022 15:50:54 T-wave abnormality no longer present Possible ischemia no longer present Electronically Signed On 08-21-22 20:32:32 CDT by Dov Michel
[2022-08-21] MEDS ORDERED: INSULIN -REGULAR HUMAN 50 UNIT/0.5 ML ML SQ SCH (21:00)
[2022-08-21 22:59] VITALS: BMI 34.7
[2022-08-21] MEDS ORDERED: FUROSEMIDE 40 MG/4 ML VIAL IV SCH (23:00)
[2022-08-22] MEDS ORDERED: HYDROCODONE/APAP 7.5/325 MG TAB PO PRN (00:40)
[2022-08-22] MEDS ORDERED: D50W 25 GM/50 ML SYRINGE IV PRN (00:40)
[2022-08-22] MEDS ORDERED: GLUCAGON 1 MG/VIAL IM PRN (00:40)
[2022-08-22] MEDS ORDERED: DIGOXIN 0.125 MG TABLET PO ONE (00:43)
[2022-08-22] MEDS ORDERED: LABETALOL HCL 100 MG TAB PO ONE (00:43)
[2022-08-22] MEDS ORDERED: CEFEPIME 2 GM in NA CHLORIDE 0.9% 100 ML IV SCH (01:00)
[2022-08-22] MEDS ORDERED: D10W 125 ML IV PRN (01:01)
[2022-08-22] MEDS ORDERED: ACETAMINOPHEN 650MG/RECT SUPP PR ONE (01:33)
[2022-08-22] MEDS ORDERED: LORazepam 2 MG/ML VIAL ONE (01:39)
--- NOTE | 2022-08-22 01:50 | P.PN ---
Date of Service: 08/22/22 rapid response called early this morning. when RN went to check on patient, he was unresponsive, hypertensive, tachycardic, febrile. bipap setting had to be adjusted. partial seizure witnessed, rapid blinking of eyes, tremoring hands.
[2022-08-22] MEDS: IPRATROPIUM BROM 0.5MG/2.5ML NEB SCH (02:00)
[2022-08-22] MEDS: ALBUTEROL 2.5 MG/3 ML NEB SOL NEB SCH (02:00)
[2022-08-22 02:41] LABS: Arterial Blood Carboxyhemoglob 1.5 % (0-1.5); Blood Gas Oxyhemoglobin 88.6 % (94-97); Blood O2 Saturation 91.2 % (92-98.5)
[2022-08-22] MEDS ORDERED: HYDROCORTISONE SUC 100 MG INJ ONE (02:53)
[2022-08-22] MEDS ORDERED: NA CHLORIDE 0.9% 1,000 ML ONE (03:02)
[2022-08-22] MEDS ORDERED: RSI MEDICATION KIT IV ONE (03:02)
[2022-08-22] MEDS ORDERED: MIDAZOLAM HCL 0 ML ONE (03:17)
[2022-08-22] MEDS ORDERED: NA CHLORIDE 0.9% 1,000 ML IV ONE (03:30)
[2022-08-22 03:37] LABS: Hematocrit 40.3 % (39.6-49.0); MCV 88.9 fL (80-100); MPV 9.3 fL (7.6-11.3); RBC Red Blood Cell Count 4.53 M/uL (4.33-5.43)
[2022-08-22 04:32] VITALS: TEMP 99.9
[2022-08-22 04:45] LABS: ALT/SGPT 23 U/L (16-61); AST/SGOT 38 U/L (15-37); Albumin 2.9 g/dL (3.4-5.0); Alkaline Phosphatase 66 U/L (45-117); BUN Blood Urea Nitrogen 25 mg/dL (7-18); Bicarbonate 30 mEq/L (21-32); Bilirubin Total 0.7 mg/dL (0.2-1.0); Glomerular Filtration Rate 87 ml/min (=/>90); Glucose Level 119 mg/dL (74-106); Potassium 5.1 mEq/L (3.5-5.1); Protein, Total 6.7 g/dL (6.4-8.2); Sodium Level 137 mEq/L (136-145)
--- NOTE | 2022-08-22 04:55 | P.DS ---
Admission Date: 08/21/22 Discharge Date: 08/22/22 Disposition: TRANSFER TO [facility] Discharge Condition: CRITICAL Reason for Admission: SOB, Fatigue and weakness Procedures: Ultrasound Guided Central Line Insertion- Left Internal Jugular - Problems (1) Intracranial hemorrhage Current Visit: Yes Status: Acute (2) Sepsis Current Visit: Yes Status: Acute Qualifiers: Sepsis type: sepsis due to unspecified organism Sepsis acute organ dysfunc tion status: with acute organ dysfunction Severe sepsis acute organ dysfunction type: acute respiratory failure Acute respiratory failure type: with hypoxia Severe sepsis shock status: without septic shock Qualified Code(s): A41.9 - Sepsis, unspecified organism; R65.20 - Severe sepsis without septic shock; J96.01 - Acute respiratory failure with hypoxia (3) Acute on chronic diastolic (congestive) heart failure Current Visit: Yes Status: Acute (4) Acute on chronic respiratory failure with hypoxia and hypercapnia Current Visit: Yes Status: Acute (5) COPD (chronic obstructive pulmonary disease) Current Visit: Yes Status: Acute Qualifiers: COPD type: unspecified COPD Qualified Code(s): J44.9 - Chronic obstructive pulmonary disease, unspecified (6) Pneumonia Current Visit: Yes Status: Acute Qualifiers: Pneumonia type: due to unspecified organism Laterality: right Lung location: unspecified part of lung Qualified Code(s): J18.9 - Pneumonia, unspecified organism (7) Pulmonary hypertension Current Visit: Yes Status: Chronic (8) Atrial fibrillation Current Visit: No Status: Chronic Qualifiers: Atrial fibrillation type: paroxysmal Qualified Code(s): I48.0 - Paroxysmal atrial fibrillation (9) Diabetes Current Visit: Yes Status: Chronic Qualifiers: Diabetes mellitus type: type 2 Diabetes mellitus residential insulin use: with superintendent marine oil terminal use Diabetes mellitus complication status: with hyperglycemia Qualified Code(s): E11.65 - Type 2 diabetes mellitus with hyperglycemia; Z79.4 - half-way (current) use of insulin (10) Status post kidney transplant Current Visit: Yes Status: Chronic Brief History of Present Illness: Mr. Lewis is a 77-year-old male with a past medical history significant for DM 2, HLD, hypertension, sleep apnea, atrial fibrillation s/p watchman, aortic stenosis s/p TAVR, kidney transplant, hypertension, chronic diastolic CHF, and COPD who presents with complaint of generalized weakness, fatigue, shortness of breath that has been ongoing for the past 3 days. Patient reported that he has had rhinorrhea for the past 3 weeks. Patient also reports upper quadrant pain rated as 3/10 in severity and described as cramping in quality. Patient reported associated signs and symptoms of fever. Patient denies any other signs and symptoms. Symptoms are aggravated or relieved by nothing. Of note, family reported that patient's O2 sat was 85% on 3 L/min. Patient was brought to the hospital for medical evaluation. Hospital Course: Mr. Lewis was admitted to the medical floor for severe sepsis secondary to pneumonia, receiving dual antibiotic therapy, and requiring bipap. A few hours after he was taken to the floor, I received a call from RN informing me that patient's daughter had turned off his bipap machine, closed the door to his room, and left. RN found him saturating 82%, had RT evaluate, and his oxygenation improved after turning bipap back on. Respiratory therapist and nursing staff reported to me that daughter had made several comments this evening asking about hospice, the patient's code status, and had a feeling that he might pass away tonight. About 2 hours later, I received another call from RN that Mr. Lewis had become unresponsive when he was checked on by nursing staff. He was tachycardic, hypertensive, and febrile. I went to assess patient and noted that he was experiencing seizure like activity and administered 2 mg IV ativan. Immediately after, he was taken for STAT head and chest CT. He was found to have "Area of intraparenchymal hemorrhage with surrounding edema involving the left occipital lobe." Transfer immediately initiated with assistance of ER physician and patient was taken to ICU. I called Mr. Lewis's next of kin listed, his son Celso, and updated him on his father's critical condition and inquired about his code status and how aggressive he would want us to be with treatment. He stated that he wants everything possible done for his father. Patient quickly became more hypoxic, hypercapneic, and acidotic. store administrator anesthesia was paged and came in to intubate patient, which was done successfully. Following that, I inserted an ultrasound guided central line in the left internal jugular. BP stayed in the 90s/50s with HR ranging from 120s-140s, rhythm alternating between afib and vtach. After transfer attempts to several facilities, Mr. Hinze was accepted to [facility] and left via [facility]. Patient's daughter returned shortly before his departure, smelling strongly of alcohol, and was very upset stating that the patient is a DNR and wanted us to withdrawal care. electrical assemblies supervisor spoke with her at length about how we do not have any documentation stating that he is a DNR or who his POA is. She also expressed our concerns about her turning off the bipap machine and leaving and she stated that "he told me to turn it off." I called patient's son, Celso, to update him on his father's transfer and what daughter was telling us. He informed me that she has malicious intentions and reconfirmed that he wants everything done for his father. Vital Signs/Physical Exam: Temp Pulse Resp BP Pulse Ox 99.9 F 125 H 16 95/45 L 96 08/22/22 04:00 08/22/22 04:15 08/22/22 04:15 08/22/22 04:15 08/22/22 04:15 General: Unresponsive, Other (intubated) HEENT: Other (pupils nonreactive bilaterally) Neck: Supple, Without JVD or thyroid abnormality Respiratory: Rhonchi/gurgles Cardiovascular: Irregular heart rate/rhythm Gastrointestinal: Soft and benign, Non-distended Musculoskeletal: No clubbing Integumentary: Other (skin tear left wrist, stage 1 sacral decubitus ulcer) Urinary: Reyna catheter Laboratory Data at Discharge: WBC Cancelled 08/22/22 05:00 Hgb Cancelled 08/22/22 05:00 Hct Cancelled 08/22/22 05:00 Plt Count Cancelled 08/22/22 05:00 PT 14.7 SECONDS (9.5-12.5) H 08/21/22 13:00 INR 1.34 08/21/22 13:00 APTT 29.0 SECONDS (24.3-36.9) 08/21/22 13:00 Sodium Cancelled 08/22/22 05:00 Potassium Cancelled 08/22/22 05:00 BUN Cancelled 08/22/22 05:00 Creatinine Cancelled 08/22/22 05:00 Glucose Cancelled 08/22/22 05:00 Phosphorus 2.9 mg/dL (2.5-4.9) 08/21/22 18:37 Total Bilirubin 0.7 mg/dL (0.2-1.0) 08/22/22 03:26 AST 38 U/L (15-37) H 08/22/22 03:26 ALT 23 U/L (16-61) 08/22/22 03:26 Alkaline Phosphatase 66 U/L (45-117) 08/22/22 03:26 Triglycerides Cancelled 08/22/22 05:00 Cholesterol Cancelled 08/22/22 05:00 HDL Cholesterol Cancelled 08/22/22 05:00 Cholesterol/HDL Ratio Cancelled 08/22/22 05:00 Home Medications: Allopurinol 100 mg PO BID 06/28/22 Aspirin [Low Dose Aspirin EC] 81 mg PO DAILY 06/28/22 Brimonidine Tartrate [Lumify] 1 gtt EACH EYE BID 06/28/22 Carboxymethylcellulos/Glycerin [Refresh Optive Eye Drops] 1 gtt EACH EYE Q2HP PRN 06/28/22 Cholestyramine/Aspartame [Cholestyramine Light Packet] 2 packet PO BEDTIME 06/28/22 Cyclosporine [Restasis Multidose] 1 gtt EACH EYE BID 06/28/22 Digoxin [Lanoxin*] 0.125 mg PO DAILY 06/28/22 Duloxetine HCl [Cymbalta] 30 mg PO DAILY 06/28/22 Labetalol HCl [Trandate] 200 mg PO BID 06/28/22 Montelukast Sodium [Singulair] 10 mg PO DAILY 06/28/22 Potassium Chloride 10 meq PO DAILY 06/28/22 Primidone [Mysoline *] 50 mg PO TID 06/28/22 Spironolactone 50 mg PO DAILY 06/28/22 Tacrolimus [Prograf] 3 mg PO BID 06/28/22 Tafluprost/Pf [Zioptan 0.0015% Eye Drop] 1 gtt EACH EYE BID 06/28/22 mycophenolate mofetiL [Mycophenolate Mofetil] 1,000 mg PO BID 06/28/22 Furosemide [Lasix*] 40 mg PO BIDL tab 07/06/22 Pantoprazole [Protonix Tab*] 40 mg PO ACB tab 07/06/22 Sildenafil Citrate [Revatio*] 20 mg PO TID 07/06/22 predniSONE [Prednisone*] 5 mg PO DAILY tab 07/06/22 Apixaban [Eliquis] 2.5 mg PO BID 08/22/22 Hydrocodone 7.5/APAP 325 [[place]lemons 7.5/325 mg*] 1 tab PO Q8HP PRN 08/22/22 Insulin 70/30 NPH/Reg Human [Novolin 70/30*] 13 units SQ BEDTIME 08/22/22 Insulin 70/30 NPH/Reg Human [Novolin 70/30*] 18 unit SQ DAILY 08/22/22 Ipratropium [Atrovent 0.03% (21MCG)/[place] Nasal*] 2 spray IH QID 08/22/22 Melatonin [Melatonin ER] 1 tab PO BEDTIME 08/22/22 Rosuvastatin [Crestor*] 1 tab PO BEDTIME 08/22/22 Diet: ADA Activity: Bedrest Followup: NONE,NONE [Primary Care Provider] - Physician Review: Patient Assessed, Agree with Above Assessment and Plan Time spent managing pt's care (in minutes): 70
[2022-08-22] MEDS ORDERED: LEVETIRACETAM 500 MG/5 ML VIAL IV ONE (04:57)
[2022-08-22] MEDS ORDERED: SUCCINYLCHOLINE 20 MG/ML (10 ML) IV ONE (05:19)
[2022-08-22] MEDS ORDERED: ETOMIDATE 20 MG/10 ML VIAL IV ONE (05:19)
[2022-08-22 05:22] VITALS: BP 92/45
[2022-08-22] MEDS ORDERED: PANTOPRAZOLE 40MG TABLET PO SCH (07:30)
[2022-08-22] MEDS ORDERED: LABETALOL HCL 100 MG TAB PO SCH (09:00)
[2022-08-22] MEDS ORDERED: APIXABAN 2.5 MG TABLET PO SCH (09:00)
[2022-08-22] MEDS ORDERED: DIGOXIN 0.125 MG TABLET PO SCH (09:00)
[2022-08-22] MEDS ORDERED: allopurinoL 100 MG TAB PO SCH (09:00)
[2022-08-22] MEDS ORDERED: INSULIN 70/30 100 UNITS/ML SQ SCH ×2 (09:00→21:00)
[2022-08-22] MEDS ORDERED: AZITHROMYCIN IV 500 MG in NA CHLORIDE 0.9% 250 ML IVPB SCH (09:00)
[2022-08-22] MEDS ORDERED: Tacrolimus [Prograf] 1 MG Capsule PO SCH (09:00)
--- NOTE | 2022-08-22 10:03 | RAD REPORT ---
EXAM DESCRIPTION: RAD - Chest Single View - 08/22/2022 3:32 am CLINICAL HISTORY: The patient is 77 years old and is Male; intubation TECHNIQUE: Single view of the chest. COMPARISON: August 21, 2022. FINDINGS: Lungs: Increased atelectasis left lower lobe. Right basilar airspace opacities are not s ignificantly changed from the prior exam. No pulmonary vascular congestion. Pleural space: Unremarkable. No pneumothorax. Heart: The cardiac silhouette is enlarged versus artifact of AP technique. Mediastinum: Unremarkable. Bones/joints: The bones and joints are unchanged as visualized. Tubes, lines and devices: ET tube is 3.5 cm above. NG tube is below the diaphragm. Upper abdomen: No free air in the visualized upper abdomen. IMPRESSION: 1. ET tube is 3.5 cm above. NG tube is below the diaphragm. 2. Increased atelectasis left lower lobe. Right basilar airspace opacities are not significantly ch anged from the prior exam. Electronically signed by: Irish Power MD 08/22/2022 4:31 AM CDT Due to temporary technical issues with the PACS/Fluency reporting system, reports are being signed by the in house radiologist without review as a courtesy to ensure prompt reporting. The interpreting r adiologist is fully responsible for the content of the report.
--- NOTE | 2022-08-22 11:17 | RAD REPORT ---
EXAM DESCRIPTION: CT - Ct Stroke Brain Wo Cont - 08/22/2022 3:41 am ADDENDUM #1 THIS REPORT CONTAINS FINDINGS THAT MAY BE CRITICAL TO PATIENT CARE: The findings were verbally discus sed via telephone conference with LUMBER STACKER DRIVER Fátima Echavarria by Dr. Mathew De Leon on 08/22/2022 2:43 AM CDT .The results were acknowledged and understood. Electronically signed by: Paloma De Leon MD 08/22/2022 2:43 AM CDT End of Addendum EXAM DESCRIPTION: CT Head Without Intravenous Contrast CLINICAL HISTORY: The patient is 77 years old and is Male; decreased responsiveness, seizure TECHNIQUE: Axial computed tomography images of the head/brain without intravenous contrast. Sagitt al and coronal reformatted images were created and reviewed. This CT exam was performed using one o r more of the following dose reduction techniques: automated exposure control, adjustment of the mA and/or kV according to patient size, and/or use of iterative reconstruction technique. COMPARISON: No relevant prior studies available. FINDINGS: BRAIN: A 3.0 x 2.5 cm intraparenchymal hemorrhage within the left occipital lobe is pres ent with surrounding edema. This has a somewhat masslike appearance. The andrade-white differentiation i s otherwise maintained. There is diffuse cerebral atrophy present, consistent with this patient's age . There is patchy hypoattenuation of the deep white matter which is non-specific, but most likely o wing to chronic small vessel ischemic change in a patient of this age group. VENTRICLES: Unremarkable. No ventriculomegaly. BONES/JOINTS: No acute fracture. SOFT TISSUES: Unremarkable. SINUSES: Unremarkable as visualized. No acute sinusitis. MASTOID AIR CELLS: Unremarkable as visualized. No mastoid effusion. ORBITS: Unremarkable as visualized. IMPRESSION: Area of intraparenchymal hemorrhage with surrounding edema involving the left occipital lobe. Electronically signed by: Paloma De Leon MD 08/22/2022 2:30 AM CDT Due to temporary technical issues with the PACS/Fluency reporting system, reports are being signed by the in house radiologist without review as a courtesy to ensure prompt reporting. The interpreting r adiologist is fully responsible for the content of the report.
--- NOTE | 2022-08-22 11:23 | RAD REPORT ---
EXAM DESCRIPTION: CT - Thorax Shira Dailey - 08/22/2022 3:41 am CLINICAL HISTORY: The patient is 77 years old and is Male; pneumo eval, hypoxia, hypercapnea TECHNIQUE: Axial computed tomography images of the chest without intravenous contrast. Sagittal an d coronal reformatted images were created and reviewed. This CT exam was performed using one or mor e of the following dose reduction techniques: automated exposure control, adjustment of the mA and/ or kV according to patient size, and/or use of iterative reconstruction technique. COMPARISON: CTA of the chest June 27, 2022 FINDINGS: ARTIFACTS: The exam is suboptimal secondary to motion artifact. LUNGS: Consolidation within the right lower lobe is noted. Minimal dependent atelectasis within the left lung base is noted. The lungs are otherwise clear. PLEURAL SPACE: A moderate right and small left pleural effusion are present. No pneumothorax. HEART: The heart is enlarged. There is a trace pericardial effusion. Prosthetic aortic valve is noted. MEDIASTINUM: The contents are noted within the esophagus. BONES/JOINTS: Extensive degenerative change of the bones is present. Exaggeration of thoracic kyp hosis is present. SOFT TISSUES: The soft tissues are normal. VASCULATURE: Unremarkable. No thoracic aortic aneurysm. LYMPH NODES: Shotty mediastinal lymph nodes are present. KIDNEYS AND URETERS: The kidneys are atrophic. IMPRESSION: 1. Bilateral pleural effusions, right greater than left with associated right lower lo be pneumonia. 2. Cardiomegaly with small pericardial effusion. Electronically signed by: Paloma De Leon MD 08/22/2022 2:42 AM CDT Due to temporary technical issues with the PACS/Fluency reporting system, reports are being signed by the in house radiologist without review as a courtesy to ensure prompt reporting. The interpreting r adiologist is fully responsible for the content of the report.
--- NOTE | 2022-08-22 18:17 | P.BOP ---
Preoperative diagnosis: septic shock, intracranial hemorrhage Postoperative diagnosis: same Primary procedure: ultrasound guided central line placement, left internal jugular vein Estimated blood loss: < 10 cc Anesthesia: Local Complications: None Transferred to: ICU Condition: Serious
[2022-08-22] MEDS ORDERED: CHOLESTYRAMINE/ASP 4 GM/PKT PO SCH (21:00)
[2022-08-22] MEDS ORDERED: ROSUVASTATIN 10 MG TAB PO SCH (21:00)
== END 2022-08-22 05:20 | disposition short-term general hospital (02) | DRG 871 ==
LOC: ER 12:44 → ERHOLD 17:24 → 4TH 18:52 → 3RD-ICU 08-22 02:38
PROVIDERS: ADMIT Internal Medicine; ATTEND Internal Medicine
PROC: 5A09357 Assistance with Respiratory Ventilation, Less than 24 Consecutive Hours, Continuous Positive Airway Pressure (ICD-10-PCS; 2022-08-21)
PROC: 5A1935Z Respiratory Ventilation, Less than 24 Consecutive Hours (ICD-10-PCS; principal; 2022-08-22)
PROC: 0BH17EZ Insertion of Endotracheal Airway into Trachea, Via Natural or Artificial Opening (ICD-10-PCS; 2022-08-22)
PROC: 05HY33Z Insertion of Infusion Device into Upper Vein, Percutaneous Approach (ICD-10-PCS; 2022-08-22)
DX: A41.9 Sepsis, unspecified organism (principal); I50.33 Acute on chronic diastolic (congestive) heart failure; J18.9 Pneumonia, unspecified organism; J96.21 Acute and chronic respiratory failure with hypoxia; J96.22 Acute and chronic respiratory failure with hypercapnia; R65.21 Severe sepsis with septic shock; Z94.0 Kidney transplant status; I50.32 Chronic diastolic (congestive) heart failure; J44.1 Chronic obstructive pulmonary disease with (acute) exacerbation; J44.0 Chronic obstructive pulmonary disease with (acute) lower respiratory infection; I62.9 Nontraumatic intracranial hemorrhage, unspecified; I11.0 Hypertensive heart disease with heart failure; E78.5 Hyperlipidemia, unspecified; K21.9 Gastro-esophageal reflux disease without esophagitis; I27.20 Pulmonary hypertension, unspecified; I48.0 Paroxysmal atrial fibrillation; E11.65 Type 2 diabetes mellitus with hyperglycemia; M10.9 Gout, unspecified; D63.8 Anemia in other chronic diseases classified elsewhere; J44.9 Chronic obstructive pulmonary disease, unspecified; L89.151 Pressure ulcer of sacral region, stage 1; I25.10 Atherosclerotic heart disease of native coronary artery without angina pectoris; Z88.5 Allergy status to narcotic agent; Z88.0 Allergy status to penicillin; Z88.8 Allergy status to other drugs, medicaments and biological substances; Z79.82 Long term (current) use of aspirin; Z79.52 Long term (current) use of systemic steroids; Z90.49 Acquired absence of other specified parts of digestive tract; Z79.01 Long term (current) use of anticoagulants; Z95.818 Presence of other cardiac implants and grafts; Z96.641 Presence of right artificial hip joint; Z79.899 Other long term (current) drug therapy; Z96.651 Presence of right artificial knee joint; Z87.891 Personal history of nicotine dependence
CPT/HCPCS: 36415; 36600; 70450; 71045; 71250; 80053; 80143; 80179; 82805; 82947; 83605; 83880; 84100; 84439; 84443; 84484; 85025; 85027; 85610; 85730; 87040; 87205; 93005; 94002; 94640; 94660; 96365; 96367; 99285; J0692; J1650; J1720; J1940; J1953; J2250; J7030; J7040; J7050; J7613; J7644